=== PATIENT | female | born 1955 | race Caucasian/White ===

== ENCOUNTER 2021-01-19 17:20 | Inpatient (IN) | payer MEDICARE, OTHER, SELFPAY ==
[2021-01-19 17:59] VITALS: BMI 22.7
[2021-01-19 21:36] VITALS: BP 96/55; PULSE 80; RESP 17; TEMP 36.8; O2SAT 96
[2021-01-19] MEDS: hydrOXYzine HCL 25 MG TABLET PO (22:24)
[2021-01-19] MEDS: traZODone HCL 50 MG TABLET PO (22:24)
[2021-01-19] MEDS: Acetaminophen 325 MG TABLET 650 MG PO (22:50)
[2021-01-20 06:00] VITALS: BP 110/64; PULSE 64; TEMP 36.8; O2SAT 99
[2021-01-20] MEDS: lisinopriL 40 MG TABLET PO (09:43)
[2021-01-20] MEDS: Atorvastatin Calcium 10 MG TABLET PO (09:43)
[2021-01-20] MEDS: buPROPion HCl XL 150 MG TAB.ER.24H PO (09:43)
[2021-01-20] MEDS: amLODIPine Besylate 5 MG TABLET PO (09:44)
[2021-01-20] MEDS: Acetaminophen 325 MG TABLET 650 MG PO (14:05)
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
[2021-01-20] MEDS: LORazepam 0.5 MG TABLET PO ×2 (15:22→23:50)
--- NOTE | 2021-01-20 16:09 | HO.PM.IMCN ---
History of Present Illness Data of Consult Service Date: 01/20/21 Primary Care Provider: OWEN Allred HPI Routine at medical consult for new admit to [facility]. No acute medical issues at this time Review of Systems Review of Systems: Denies chest pain Denies shortness of breath Denies nausea vomiting diarrhea PMFSH Pertinent family history: . Social History Household Members: Spouse Housing: House Do you presently have visiting nurse or other home services: No Patient Tobacco Use Status: Current everyday Tobacco user Tobacco use type: Cigarette Cigarette Packs Per Day: 1 Cigarettes Per Day: 20.0 Smoked in Last 30 Days: Yes e-Cigarette/Vaping Use: Never Used Patient Interested in Nicotine Replacement: Yes Patient Given Instructions on How to Stop Smoking: Yes Date Education Initiated: 01/19/21 Second Hand Smoke Exposure: Yes Use of substances other than those prescribed or required for medical reasons: No Currently Displaying Signs/Symptoms of Drug Intoxication Withdrawal: No Any prior treatment program specific to substance use: No Do you feel safe in your current relationship?: Yes Is there a partner from a previous relationship who is making you feel unsafe now?: No Are you made to feel afraid or neglected: No Advance Directives: No Advance Directives Information Provided: No Do you have thoughts of harming others: None Do you have a plan to hurt others: No Plan Recently lost weight without trying: No Nutrition Risks: No Nutritional Risk Patient : No : No Poor oral hygiene: No service: No Sexual orientation: Lesbian/[place]/Homosexual Meds Allergies Allergy/AdvReac Type Severity Reaction Status Date / Time amoxicillin Allergy Unknown Verified 01/19/21 17:49 NSAIDS (Non-Steroidal Allergy Unknown Verified 01/19/21 17:49 Anti-Inflamma Penicillins Allergy Unknown Verified 01/19/21 17:49 Sulfa (Sulfonamide Allergy Unknown Verified 01/19/21 17:49 Antibiotics) tetracycline Allergy Unknown Verified 01/19/21 17:49 Tetracyclines Allergy Unknown Verified 01/19/21 17:49 Active Medications: Current Medications Acetaminophen (Acetaminophen 325 Mg Tablet) 650 mg PO Q6H PRN PRN Reason: Headache/Pain Mild Scale (1-3) Last Admin: 01/20/21 14:05 Dose: 650 mg Documented by: Al Hydroxide/Mg Hydroxide (Magnesium Hydrox/Alum Hydrox 30 Ml Oral.Susp) 30 ml PO Q6H PRN PRN Reason: Heartburn/Nausea Amlodipine Besylate (Amlodipine Besylate 5 Mg Tablet) 5 mg PO DAILY [facility]; Protocol Last Admin: 01/20/21 09:44 Dose: 5 mg Documented by: Artificial Tears (Artificial Tears 15 Ml Drops) 1 drop EYE-BOTH Q4H PRN PRN Reason: Dry Eyes Atorvastatin Calcium (Atorvastatin Calcium 10 Mg Tablet) 10 mg PO DAILY [facility] Last Admin: 01/20/21 09:43 Dose: 10 mg Documented by: Bupropion HCl (Bupropion Hcl Xl 150 Mg Tab.Er.24h) 150 mg PO DAILY [facility] Last Admin: 01/20/21 09:43 Dose: 150 mg Documented by: Docusate Sodium (Docusate Sodium 100 Mg Capsule) 100 mg PO BID [facility] Hydroxyzine HCl (Hydroxyzine Hcl 25 Mg Tablet) 25 mg PO BEDTIME PRN PRN Reason: Anxiety Last Admin: 01/19/21 22:24 Dose: 25 mg Documented by: Lisinopril (Lisinopril 40 Mg Tablet) 40 mg PO DAILY [facility]; Protocol Last Admin: 01/20/21 09:43 Dose: 40 mg Documented by: Lorazepam (Lorazepam 0.5 Mg Tablet) 0.5 mg PO Q8H PRN PRN Reason: Anxiety Last Admin: 01/20/21 15:22 Dose: 0.5 mg Documented by: Magnesium Hydroxide (Milk Of Magnesia 30 Ml Oral.Susp) 30 ml PO DAILY PRN PRN Reason: Constipation Nicotine (Nicotine 14 Mg Patch.Td24) 14 mg TRANSDERMA DAILY [facility] Last Admin: 01/20/21 09:58 Dose: Not Given Documented by: Nicotine Polacrilex (Nicotine Polacrilex 2 Mg Gum) 2 mg BUCCAL Q2H PRN PRN Reason: Nicotine Cravings Nortriptyline HCl (Nortriptyline Hcl 10 Mg Capsule) 10 mg PO BEDTIME [facility] Senna (Senna Kennedy Extract Oral Syrup 15 Ml Syrup) 15 ml PO BEDTIME [facility] Trazodone HCl (Trazodone Hcl 50 Mg Tablet) 50 mg PO BEDTIME PRN PRN Reason: Insomnia Last Admin: 01/19/21 22:24 Dose: 50 mg Documented by: Home Medications Medication Instructions Recorded Confirmed Last Taken Type amlodipine 5 mg tablet 5 mg PO DAILY 01/19/21 01/19/21 Unknown History atorvastatin 10 mg tablet 10 mg PO DAILY 01/19/21 01/19/21 Unknown History bupropion HCl 100 mg tablet,12 hr 100 mg PO BID 01/19/21 01/19/21 Unknown History sustained-release lisinopril 40 mg tablet 40 mg PO DAILY 01/19/21 01/19/21 Unknown History nicotine 14 mg/24 hr daily 1 patch TRANSDERMAL DAILY 01/19/21 01/19/21 Unknown History transdermal patch Physical Exam Vital Signs and Narrative: Vital Signs: Last Vital Signs Temp 98.2 F 01/20/21 06:00 Pulse 64 01/20/21 06:00 Resp 17 01/19/21 21:36 BP 110/64 01/20/21 06:00 Pulse Ox 99 01/20/21 06:00 Body Mass Index 22.7 Const: Other: Awake alert oriented x3 no acute distress HENMT: Other: Oral pharynx clear; mucous membranes moist Resp: Other: Clear to auscultation bilaterally no rales rhonchi or wheezes Cardio: Other: No S4; positive S1-S2; no S3 he is murmurs or gallops GI: Other: Soft nontender nondistended with normoactive bowel sounds. There is no appreciable hepatosplenomegaly Neuro: Other: Cranial nerves 2-12 were grossly intact as tested. Motor is 5/5 all extremities. Sensation intact. Cognition appropriate Extrem: Other: No edema bilaterally Assessment and Plan (1) Major depressive disorder: Status: Acute (2) Panic disorder with agoraphobia: Status: Acute Routine medical consult for 65 year old female admitted to [facility] with major depressive disorders. No acute medical issues at this time. Thank you for this consult please call if the need arises
[2021-01-20] MEDS: Docusate Sodium 100 MG CAPSULE PO (20:31)
[2021-01-20] MEDS: Nortriptyline HCl 10 MG CAPSULE PO (20:31)
[2021-01-20 23:52] VITALS: BP 100/50; PULSE 61; RESP 20; TEMP 36.3; O2SAT 98
[2021-01-21 06:00] VITALS: BP 100/56; PULSE 76; RESP 18; TEMP 36.2; O2SAT 100
--- NOTE | 2021-01-21 09:46 | P.PNPSI_ITS ---
Subjective Subjective Date of Service: 01/21/21 Reason For Visit: Adjustment disorder Subjective Notes: Conditional Voluntary Interim History: The nursing staff reports the patient has being tearful at times. Her vital signs are stable, last night she was slightly hypotensive but she was mostly asymptomatic. She complains of general somatic symptoms such as general numbness, now she and vomiting for with new meds. She has for p.r.n. Ativan at night and she slept overnight. The staff has reported that she is very attention seeking and drug-seeking with controlled substances. On interview, the patient denied side effects with Pamelor 10 mg p.o. q.h.s. we discussed options and she agreed on the plan below. Review of Systems Medical Review of Systems: unchanged Mental Status Exam Mental Status Exam Patient Appearance: Well Grooomed Patient Orientation: Person, Place and Situation Level of Consciousness: Awake Patient Behavior: Cooperative Mood Description: Depressed Affect Description: Constricted Patient Cognition Impaired: No Ability to Follow Directions: Fair Speech Pattern: Clear Hallucinations: None Delusions: Not Present Thought Process: Distracted and Linear Thought Content: positive for Circumstantial Judgement: Fair Diagnostics Vital Signs (24Hr): Vital Signs - 24 hr 01/20/21 23:52 01/21/21 06:00 Temperature 97.4 F 97.1 F Pulse Rate 61 76 Respiratory Rate 20 18 Blood Pressure 100/50 L 100/56 L Pulse Oximetry 98 100 Body Mass Index 22.7 Medications Medications Current Medications Acetaminophen (Acetaminophen 325 Mg Tablet) 650 mg PO Q6H PRN PRN Reason: Headache/Pain Mild Scale (1-3) Last Admin: 01/20/21 14:05 Dose: 650 mg Documented by: Al Hydroxide/Mg Hydroxide (Magnesium Hydrox/Alum Hydrox 30 Ml Oral.Susp) 30 ml PO Q6H PRN PRN Reason: Heartburn/Nausea Amlodipine Besylate (Amlodipine Besylate 5 Mg Tablet) 5 mg PO DAILY [facility]; Protocol Last Admin: 01/20/21 09:44 Dose: 5 mg Documented by: Artificial Tears (Artificial Tears 15 Ml Drops) 1 drop EYE-BOTH Q4H PRN PRN Reason: Dry Eyes Atorvastatin Calcium (Atorvastatin Calcium 10 Mg Tablet) 10 mg PO DAILY [facility] Last Admin: 01/20/21 09:43 Dose: 10 mg Documented by: Bupropion HCl (Bupropion Hcl Xl 150 Mg Tab.Er.24h) 150 mg PO DAILY [facility] Last Admin: 01/20/21 09:43 Dose: 150 mg Documented by: Docusate Sodium (Docusate Sodium 100 Mg Capsule) 100 mg PO BID [facility] Last Admin: 01/20/21 20:31 Dose: 100 mg Documented by: Hydroxyzine HCl (Hydroxyzine Hcl 25 Mg Tablet) 25 mg PO BEDTIME PRN PRN Reason: Anxiety Last Admin: 01/19/21 22:24 Dose: 25 mg Documented by: Lisinopril (Lisinopril 40 Mg Tablet) 40 mg PO DAILY [facility]; Protocol Last Admin: 01/20/21 09:43 Dose: 40 mg Documented by: Lorazepam (Lorazepam 0.5 Mg Tablet) 0.5 mg PO Q8H PRN PRN Reason: Anxiety Last Admin: 01/20/21 23:50 Dose: 0.5 mg Documented by: Magnesium Hydroxide (Milk Of Magnesia 30 Ml Oral.Susp) 30 ml PO DAILY PRN PRN Reason: Constipation Nicotine (Nicotine 14 Mg Patch.Td24) 14 mg TRANSDERMA DAILY [facility] Last Admin: 01/20/21 09:58 Dose: Not Given Documented by: Nicotine Polacrilex (Nicotine Polacrilex 2 Mg Gum) 2 mg BUCCAL Q2H PRN PRN Reason: Nicotine Cravings Nortriptyline HCl (Nortriptyline Hcl 10 Mg Capsule) 10 mg PO BEDTIME [facility] Last Admin: 01/20/21 20:31 Dose: 10 mg Documented by: Senna (Senna Gregory Extract Oral Syrup 15 Ml Syrup) 15 ml PO BEDTIME [facility] Last Admin: 01/20/21 20:31 Dose: 15 ml Documented by: Trazodone HCl (Trazodone Hcl 50 Mg Tablet) 50 mg PO BEDTIME PRN PRN Reason: Insomnia Last Admin: 01/19/21 22:24 Dose: 50 mg Documented by: Allergies Allergies Allergy/AdvReac Type Severity Reaction Status Date / Time amoxicillin Allergy Unknown Verified 01/19/21 17:49 NSAIDS (Non-Steroidal Allergy Unknown Verified 01/19/21 17:49 Anti-Inflamma Penicillins Allergy Unknown Verified 01/19/21 17:49 Sulfa (Sulfonamide Allergy Unknown Verified 01/19/21 17:49 Antibiotics) tetracycline Allergy Unknown Verified 01/19/21 17:49 Tetracyclines Allergy Unknown Verified 01/19/21 17:49 Assessment & Plan Assessment & Plan (1) Major depressive disorder: Status: Acute Code(s): F32.9 - Major depressive disorder, single episode, unspecified (2) Panic disorder with agoraphobia: Status: Acute Code(s): F40.01 - Agoraphobia with panic disorder Assessment and Plan: The patient is a 65-year-old female with a long history of depression, agoraphobia and several somatic symptoms with a prior admission into the hospital last year. She was admitted for exacerbation of depressive symptoms and agoraphobia, she has not left her apartment in several months. On admission we started the low-dose of Pamelor but she is extremely somatically preoccupied with side effects. Plan 1. Continue Wellbutrin and other medications. 2. Try again Pamelor this night. I spent minutes with the patient and/or on the patient floor today, greater than?50% of which was spent counseling/coordinating care. Reason for contiued inpatient stay Substantial Risk for: inability to function, rapid decompensation and med/psych decompensation
[2021-01-21] MEDS: LORazepam 0.5 MG TABLET PO ×2 (09:56→18:17)
[2021-01-21 09:57] VITALS: BP 100/56; PULSE 76
[2021-01-21] MEDS: Docusate Sodium 100 MG CAPSULE PO ×2 (09:57→20:35)
[2021-01-21] MEDS: lisinopriL 40 MG TABLET PO (09:57)
[2021-01-21] MEDS: buPROPion HCl XL 150 MG TAB.ER.24H PO (09:57)
[2021-01-21 09:58] VITALS: BP 100/56; PULSE 76
[2021-01-21] MEDS: Atorvastatin Calcium 10 MG TABLET PO (09:58)
[2021-01-21] MEDS: amLODIPine Besylate 5 MG TABLET PO (09:58)
[2021-01-21] MEDS: Acetaminophen 325 MG TABLET 650 MG PO (14:33)
[2021-01-21] MEDS: Magnesium Hydrox/Alum Hydrox 30 ML ORAL.SUSP PO ×2 (15:52→21:09)
[2021-01-21] MEDS: Nortriptyline HCl 10 MG CAPSULE PO (20:35)
[2021-01-21] MEDS: Artificial Tears 15 ML DROPS 1 DROP EYE-BOTH (20:36)
[2021-01-21 20:56] VITALS: BP 111/55; PULSE 67; RESP 16; TEMP 36.4; O2SAT 100
[2021-01-22] MEDS: Acetaminophen 325 MG TABLET 650 MG PO ×3 (00:19→22:10)
[2021-01-22] MEDS: LORazepam 0.5 MG TABLET PO ×4 (01:01→22:34)
[2021-01-22] MEDS: Artificial Tears 15 ML DROPS 1 DROP EYE-BOTH ×3 (01:16→12:20)
--- NOTE | 2021-01-22 07:32 | P.PNIM_ITS ---
Subjective Subjective Date of Service: 01/21/21 Interval History: Complains of worsening GERD over the last several days; she questions whether related to med therapy Review of Systems Denies chest pain Denies shortness of breath Admits to nausea and vomiting in the absence of diarrhea Physical Exam Vital Signs: Vital Signs: Last Vital Signs Temp 97.6 F 01/21/21 20:56 Pulse 67 01/21/21 20:56 Resp 16 01/21/21 20:56 BP 111/55 L 01/21/21 20:56 Pulse Ox 100 01/21/21 20:56 Body Mass Index 22.7 Const: Other: Awake alert oriented x3 no acute distress HENMT: Other: Oral pharynx clear; mucous membranes moist Resp: Other: Clear to auscultation bilaterally no rales rhonchi or wheezes Cardio: Other: No S4; positive S1-S2; no S3 he is murmurs or gallops GI: Other: Soft nontender nondistended with normoactive bowel sounds. There is no appreciable hepatosplenomegaly Neuro: Other: Cranial nerves 2-12 were grossly intact as tested. Motor is 5/5 all extremities. Sensation intact. Cognition appropriate Extrem: Other: No edema bilaterally Objective Data Active Medications Acetaminophen (Acetaminophen 325 Mg Tablet) 650 mg PO Q6H PRN PRN Reason: Headache/Pain Mild Scale (1-3) Last Admin: 01/22/21 00:19 Dose: 650 mg Documented by: ANJUM Al Hydroxide/Mg Hydroxide (Magnesium Hydrox/Alum Hydrox 30 Ml Oral.Susp) 30 ml PO Q6H PRN PRN Reason: Heartburn/Nausea Last Admin: 01/21/21 21:09 Dose: 30 ml Documented by: ANJUM Amlodipine Besylate (Amlodipine Besylate 5 Mg Tablet) 5 mg PO DAILY [facility]; Protocol Last Admin: 01/21/21 09:58 Dose: 5 mg Documented by: NIDIA Artificial Tears (Artificial Tears 15 Ml Drops) 1 drop EYE-BOTH Q4H PRN PRN Reason: Dry Eyes Last Admin: 01/22/21 01:16 EDT Dose: 1 drop Documented by: ANJUM Atorvastatin Calcium (Atorvastatin Calcium 10 Mg Tablet) 10 mg PO DAILY [facility] Last Admin: 01/21/21 09:58 Dose: 10 mg Documented by: NIDIA Bupropion HCl (Bupropion Hcl Xl 150 Mg Tab.Er.24h) 150 mg PO DAILY [facility] Last Admin: 01/21/21 09:57 Dose: 150 mg Documented by: NIDIA Docusate Sodium (Docusate Sodium 100 Mg Capsule) 100 mg PO BID [facility] Last Admin: 01/21/21 20:35 Dose: 100 mg Documented by: ANJUM Famotidine (Famotidine 20 Mg Tablet) 20 mg PO BEDTIME [facility] Hydroxyzine HCl (Hydroxyzine Hcl 25 Mg Tablet) 25 mg PO BEDTIME PRN PRN Reason: Anxiety Last Admin: 01/19/21 22:24 Dose: 25 mg Documented by: MERCEDES Lisinopril (Lisinopril 40 Mg Tablet) 40 mg PO DAILY [facility]; Protocol Last Admin: 01/21/21 09:57 Dose: 40 mg Documented by: NIDIA Lorazepam (Lorazepam 0.5 Mg Tablet) 0.5 mg PO Q8H PRN PRN Reason: Anxiety Last Admin: 01/22/21 01:01 EST Dose: 0.5 mg Documented by: ANJUM Magnesium Hydroxide (Milk Of Magnesia 30 Ml Oral.Susp) 30 ml PO DAILY PRN PRN Reason: Constipation Nicotine (Nicotine 14 Mg Patch.Td24) 14 mg TRANSDERMA DAILY [facility] Last Admin: 01/21/21 09:56 Dose: Not Given Documented by: NIDIA Non-Admin Reason: Patient Refused Nicotine Polacrilex (Nicotine Polacrilex 2 Mg Gum) 2 mg BUCCAL Q2H PRN PRN Reason: Nicotine Cravings Nortriptyline HCl (Nortriptyline Hcl 10 Mg Capsule) 10 mg PO BEDTIME [facility] Last Admin: 01/21/21 20:35 Dose: 10 mg Documented by: ANJUM Omeprazole (Omeprazole 20 Mg Capsule.Dr) 20 mg PO DAILY@0630 [facility] Senna (Senna [place] Extract Oral Syrup 15 Ml Syrup) 15 ml PO BEDTIME [facility] Last Admin: 01/21/21 20:35 Dose: 15 ml Documented by: ANJUM Trazodone HCl (Trazodone Hcl 50 Mg Tablet) 50 mg PO BEDTIME PRN PRN Reason: Insomnia Last Admin: 01/19/21 22:24 Dose: 50 mg Documented by: MERCEDES Assessment and Plan (1) GERD (gastroesophageal reflux disease): Status: Acute Assessment and Plan: 65-year-old female seen for complaints of worsening reflux over the last 48 hours 1GERD Will add PPI in a.m. and H2 RA at HS. Patient should continue these until symptom-free and then can follow with PPI in the morning only. Can follow-up with PCP upon discharge Quality Stroke Does the patient have a stroke diagnosis?: No VTE Prior VTE?: No VTE Risk Level:: Medical - low VTE Device Contraindication: N/A - Device Ordered VTE Drug Contraindication: Treatment Not Indicated
[2021-01-22 08:35] VITALS: BP 126/73; PULSE 66
[2021-01-22] MEDS: Atorvastatin Calcium 10 MG TABLET PO (08:35)
[2021-01-22] MEDS: amLODIPine Besylate 5 MG TABLET PO (08:35)
[2021-01-22] MEDS: Docusate Sodium 100 MG CAPSULE PO ×2 (08:35→21:06)
[2021-01-22] MEDS: Omeprazole 20 MG CAPSULE.DR PO (08:35)
[2021-01-22] MEDS: buPROPion HCl XL 150 MG TAB.ER.24H PO (08:35)
[2021-01-22 08:36] VITALS: BP 126/73; PULSE 66
[2021-01-22] MEDS: lisinopriL 40 MG TABLET PO (08:36)
[2021-01-22] MEDS: Nicotine 14 MG PATCH.TD24 TRANSDERMA (09:15)
[2021-01-22 09:43] VITALS: BP 126/73; PULSE 66; RESP 15; TEMP 36.5; O2SAT 100
--- NOTE | 2021-01-22 09:57 | HO.PSYCHPN ---
Subjective Subjective Date of Service: 01/22/21 Reason For Visit: Adjustment disorder Subjective Notes: Conditional Voluntary Interim History: The nursing staff reported that she preferred Senna tablets instead of syrup since the liquid caused heartburn. She complained of dry skin and mucosa. She stated that she is not a real psychiatric patient but mostly a patient with chronic pain. She was up several times at night. On interview, she reported dysphoria and pain. She explained that her sleep is bad, she can't fall sleep. Also, she complained of chronic pain that in the past was relieved partially with Gabapentin. She agreed on the plan below. NO safety concerns. Mental Status Exam Mental Status Exam Patient Appearance: Well Grooomed (on hospital gowns) Patient Orientation: Person, Place and Situation Level of Consciousness: Awake and Appropriate Patient Behavior: Cooperative and Passive Mood Description: Withdrawn and Depressed Affect Description: Constricted Patient Cognition Impaired: No Ability to Follow Directions: Good Speech Pattern: Clear Hallucinations: None Delusions: Not Present Thought Process: Linear Thought Content: positive for [place], positive for Perseveration, positive for Poverty of Content and positive for Preoccupation Judgement: Fair Diagnostics Vital Signs (24Hr): Vital Signs - 24 hr 01/21/21 20:56 01/22/21 08:35 01/22/21 08:36 Temperature 97.6 F Pulse Rate 67 66 66 Respiratory Rate 16 Blood Pressure 111/55 L 126/73 126/73 Pulse Oximetry 100 01/22/21 09:43 Temperature 97.7 F Pulse Rate 66 Respiratory Rate 15 Blood Pressure 126/73 Pulse Oximetry 100 Body Mass Index 22.7 Medications Medications Current Medications Acetaminophen (Acetaminophen 325 Mg Tablet) 650 mg PO Q6H PRN PRN Reason: Headache/Pain Mild Scale (1-3) Last Admin: 01/22/21 09:20 Dose: 650 mg Documented by: Al Hydroxide/Mg Hydroxide (Magnesium Hydrox/Alum Hydrox 30 Ml Oral.Susp) 30 ml PO Q6H PRN PRN Reason: Heartburn/Nausea Last Admin: 01/21/21 21:09 Dose: 30 ml Documented by: Amlodipine Besylate (Amlodipine Besylate 5 Mg Tablet) 5 mg PO DAILY [facility]; Protocol Last Admin: 01/22/21 08:35 Dose: 5 mg Documented by: Artificial Tears (Artificial Tears 15 Ml Drops) 1 drop EYE-BOTH Q4H PRN PRN Reason: Dry Eyes Last Admin: 01/22/21 08:35 Dose: 1 drop Documented by: Atorvastatin Calcium (Atorvastatin Calcium 10 Mg Tablet) 10 mg PO DAILY [facility] Last Admin: 01/22/21 08:35 Dose: 10 mg Documented by: Bupropion HCl (Bupropion Hcl Xl 150 Mg Tab.Er.24h) 150 mg PO DAILY [facility] Last Admin: 01/22/21 08:35 Dose: 150 mg Documented by: Docusate Sodium (Docusate Sodium 100 Mg Capsule) 100 mg PO BID [facility] Last Admin: 01/22/21 08:35 Dose: 100 mg Documented by: Famotidine (Famotidine 20 Mg Tablet) 20 mg PO BEDTIME [facility] Hydroxyzine HCl (Hydroxyzine Hcl 25 Mg Tablet) 25 mg PO BEDTIME PRN PRN Reason: Anxiety Last Admin: 01/19/21 22:24 Dose: 25 mg Documented by: Lisinopril (Lisinopril 40 Mg Tablet) 40 mg PO DAILY [facility]; Protocol Last Admin: 01/22/21 08:36 Dose: 40 mg Documented by: Lorazepam (Lorazepam 0.5 Mg Tablet) 0.5 mg PO Q8H PRN PRN Reason: Anxiety Last Admin: 01/22/21 09:20 Dose: 0.5 mg Documented by: Magnesium Hydroxide (Milk Of Magnesia 30 Ml Oral.Susp) 30 ml PO DAILY PRN PRN Reason: Constipation Nicotine (Nicotine 14 Mg Patch.Td24) 14 mg TRANSDERMA DAILY [facility] Last Admin: 01/22/21 09:15 Dose: 14 mg Documented by: Nicotine Polacrilex (Nicotine Polacrilex 2 Mg Gum) 2 mg BUCCAL Q2H PRN PRN Reason: Nicotine Cravings Nortriptyline HCl (Nortriptyline Hcl 10 Mg Capsule) 10 mg PO BEDTIME [facility] Last Admin: 01/21/21 20:35 Dose: 10 mg Documented by: Omeprazole (Omeprazole 20 Mg Capsule.Dr) 20 mg PO DAILY@0630 [facility] Last Admin: 01/22/21 08:35 Dose: 20 mg Documented by: Senna (Senna [place] Extract Oral Syrup 15 Ml Syrup) 15 ml PO BEDTIME [facility] Last Admin: 01/21/21 20:35 Dose: 15 ml Documented by: Trazodone HCl (Trazodone Hcl 50 Mg Tablet) 50 mg PO BEDTIME PRN PRN Reason: Insomnia Last Admin: 01/19/21 22:24 Dose: 50 mg Documented by: Allergies Allergies Allergy/AdvReac Type Severity Reaction Status Date / Time amoxicillin Allergy Unknown Verified 01/19/21 17:49 NSAIDS (Non-Steroidal Allergy Unknown Verified 01/19/21 17:49 Anti-Inflamma Penicillins Allergy Unknown Verified 01/19/21 17:49 Sulfa (Sulfonamide Allergy Unknown Verified 01/19/21 17:49 Antibiotics) tetracycline Allergy Unknown Verified 01/19/21 17:49 Tetracyclines Allergy Unknown Verified 01/19/21 17:49 Assessment & Plan Assessment & Plan (1) GERD (gastroesophageal reflux disease): Status: Acute Code(s): K21.9 - Gastro-esophageal reflux disease without esophagitis Assessment and Plan: 65-year-old female admitted for dysphoria and several somatic complaints, admitted for exacerbation of dysphoria. Plan: 1. Keep Pamelor 10 mg po qhs. 2. Add Gabapentin 100 mg po bid. 3. Add Ambien 5 mg po qhs.. 4. Gather collateral information. I spent minutes with the patient and/or on the patient floor today, greater than?50% of which was spent counseling/coordinating care. Reason for contiued inpatient stay Substantial Risk for: inability to function, rapid decompensation and med/psych decompensation
[2021-01-22 21:05] VITALS: BP 141/67; PULSE 74; RESP 18; TEMP 36; O2SAT 99
[2021-01-22] MEDS: Nortriptyline HCl 10 MG CAPSULE PO (21:07)
[2021-01-22] MEDS: Famotidine 20 MG TABLET PO (21:07)
[2021-01-22] MEDS: Zolpidem Tartrate 5 MG TABLET PO (21:07)
[2021-01-23] MEDS: traZODone HCL 50 MG TABLET PO ×2 (00:14→03:47)
[2021-01-23] MEDS: Nicotine 14 MG PATCH.TD24 TRANSDERMA (08:44)
[2021-01-23 08:45] VITALS: BP 117/61; PULSE 78
[2021-01-23] MEDS: Atorvastatin Calcium 10 MG TABLET PO (08:45)
[2021-01-23] MEDS: Docusate Sodium 100 MG CAPSULE PO ×2 (08:45→21:04)
[2021-01-23] MEDS: buPROPion HCl XL 150 MG TAB.ER.24H PO (08:45)
[2021-01-23] MEDS: Omeprazole 20 MG CAPSULE.DR PO (08:45)
[2021-01-23] MEDS: lisinopriL 40 MG TABLET PO (08:45)
[2021-01-23 08:46] VITALS: BP 117/61; PULSE 78
[2021-01-23] MEDS: Gabapentin 100 MG CAPSULE PO ×2 (08:46→15:15)
[2021-01-23] MEDS: amLODIPine Besylate 5 MG TABLET PO (08:46)
[2021-01-23 08:59] VITALS: BP 117/61; PULSE 78; TEMP 35.7; O2SAT 100
[2021-01-23] MEDS: LORazepam 0.5 MG TABLET PO ×2 (10:37→19:36)
[2021-01-23] MEDS: Artificial Tears 15 ML DROPS 1 DROP EYE-BOTH (11:08)
[2021-01-23] MEDS: Acetaminophen 325 MG TABLET 650 MG PO ×2 (12:21→19:36)
--- NOTE | 2021-01-23 16:07 | HO.PSYCHPN ---
Subjective Subjective Date of Service: 01/23/21 Reason For Visit: Adjustment disorder Subjective Notes: Conditional Voluntary Interim History: The nursing staff reported that the patient: Sleep very well, even though the we have tried Ambien, trazodone and other medications. On interview, the patient reported that she is feeling this anxious but still very dysphoric with chronic pain and anxiety. She agreed increase Pamelor up to 20 mg p.o. q.h.s. to target insomnia, dysphoria and chronic pain Mental Status Exam Mental Status Exam Patient Appearance: Well Grooomed Patient Orientation: Person Level of Consciousness: Awake and Appropriate Patient Behavior: Cooperative Mood Description: Depressed Affect Description: Constricted Patient Cognition Impaired: No Ability to Follow Directions: Good Speech Pattern: Clear Hallucinations: None Delusions: Not Present Thought Process: Goal Oriented Thought Content: positive for Circumstantial Judgement: Fair Diagnostics Vital Signs (24Hr): Vital Signs - 24 hr 01/22/21 21:05 01/23/21 08:45 01/23/21 08:46 Temperature 96.8 F Pulse Rate 74 78 78 Respiratory Rate 18 Blood Pressure 141/67 H 117/61 117/61 Pulse Oximetry 99 01/23/21 08:59 Temperature 96.2 F L Pulse Rate 78 Respiratory Rate Blood Pressure 117/61 Pulse Oximetry 100 Body Mass Index 22.7 Medications Medications Current Medications Acetaminophen (Acetaminophen 325 Mg Tablet) 650 mg PO Q6H PRN PRN Reason: Headache/Pain Mild Scale (1-3) Last Admin: 01/23/21 12:21 Dose: 650 mg Documented by: Al Hydroxide/Mg Hydroxide (Magnesium Hydrox/Alum Hydrox 30 Ml Oral.Susp) 30 ml PO Q6H PRN PRN Reason: Heartburn/Nausea Last Admin: 01/21/21 21:09 Dose: 30 ml Documented by: Amlodipine Besylate (Amlodipine Besylate 5 Mg Tablet) 5 mg PO DAILY [facility]; Protocol Last Admin: 01/23/21 08:46 Dose: 5 mg Documented by: Artificial Tears (Artificial Tears 15 Ml Drops) 1 drop EYE-BOTH Q4H PRN PRN Reason: Dry Eyes Last Admin: 01/23/21 11:08 Dose: 1 drop Documented by: Atorvastatin Calcium (Atorvastatin Calcium 10 Mg Tablet) 10 mg PO DAILY [facility] Last Admin: 01/23/21 08:45 Dose: 10 mg Documented by: Bupropion HCl (Bupropion Hcl Xl 150 Mg Tab.Er.24h) 150 mg PO DAILY [facility] Last Admin: 01/23/21 08:45 Dose: 150 mg Documented by: Docusate Sodium (Docusate Sodium 100 Mg Capsule) 100 mg PO BID [facility] Last Admin: 01/23/21 08:45 Dose: 100 mg Documented by: Famotidine (Famotidine 20 Mg Tablet) 20 mg PO BEDTIME [facility] Last Admin: 01/22/21 21:07 Dose: 20 mg Documented by: Gabapentin (Gabapentin 100 Mg Capsule) 100 mg PO BID@0800,1500 [facility] Last Admin: 01/23/21 15:15 Dose: 100 mg Documented by: Hydroxyzine HCl (Hydroxyzine Hcl 25 Mg Tablet) 25 mg PO BEDTIME PRN PRN Reason: Anxiety Last Admin: 01/19/21 22:24 Dose: 25 mg Documented by: Lisinopril (Lisinopril 40 Mg Tablet) 40 mg PO DAILY [facility]; Protocol Last Admin: 01/23/21 08:45 Dose: 40 mg Documented by: Lorazepam (Lorazepam 0.5 Mg Tablet) 0.5 mg PO Q8H PRN PRN Reason: Anxiety Last Admin: 01/23/21 10:37 Dose: 0.5 mg Documented by: Magnesium Hydroxide (Milk Of Magnesia 30 Ml Oral.Susp) 30 ml PO DAILY PRN PRN Reason: Constipation Nicotine (Nicotine 14 Mg Patch.Td24) 14 mg TRANSDERMA DAILY [facility] Last Admin: 01/23/21 08:44 Dose: 14 mg Documented by: Nicotine Polacrilex (Nicotine Polacrilex 2 Mg Gum) 2 mg BUCCAL Q2H PRN PRN Reason: Nicotine Cravings Nortriptyline HCl (Nortriptyline Hcl 10 Mg Capsule) 10 mg PO BEDTIME [facility] Last Admin: 01/22/21 21:07 Dose: 10 mg Documented by: Omeprazole (Omeprazole 20 Mg Capsule.Dr) 20 mg PO DAILY@0630 [facility] Last Admin: 01/23/21 08:45 Dose: 20 mg Documented by: Senna (Senna [place] Extract Oral Syrup 15 Ml Syrup) 15 ml PO BEDTIME [facility] Last Admin: 01/22/21 21:07 Dose: Not Given Documented by: Trazodone HCl (Trazodone Hcl 50 Mg Tablet) 50 mg PO BEDTIME PRN PRN Reason: Insomnia Last Admin: 01/23/21 03:47 Dose: 50 mg Documented by: Zolpidem Tartrate (Zolpidem Tartrate 5 Mg Tablet) 5 mg PO BEDTIME [facility] Last Admin: 01/22/21 21:07 Dose: 5 mg Documented by: Allergies Allergies Allergy/AdvReac Type Severity Reaction Status Date / Time amoxicillin Allergy Unknown Verified 01/19/21 17:49 NSAIDS (Non-Steroidal Allergy Unknown Verified 01/19/21 17:49 Anti-Inflamma Penicillins Allergy Unknown Verified 01/19/21 17:49 Sulfa (Sulfonamide Allergy Unknown Verified 01/19/21 17:49 Antibiotics) tetracycline Allergy Unknown Verified 01/19/21 17:49 Tetracyclines Allergy Unknown Verified 01/19/21 17:49 Assessment & Plan Assessment & Plan (1) GERD (gastroesophageal reflux disease): Status: Acute Code(s): K21.9 - Gastro-esophageal reflux disease without esophagitis Assessment and Plan: 65-year-old female admitted for dysphoria and several somatic complaints, admitted for exacerbation of dysphoria. Plan: 1. Increase Pamelor up to 20 mg po qhs. 2. Add Gabapentin 100 mg po bid. 3. Add Ambien 5 mg po qhs.. 4. Gather collateral information. I spent minutes with the patient and/or on the patient floor today, greater than?50% of which was spent counseling/coordinating care. Reason for contiued inpatient stay Substantial Risk for: inability to function, rapid decompensation and med/psych decompensation
[2021-01-23 21:00] VITALS: BP 103/56; PULSE 66; RESP 18; TEMP 36.2; O2SAT 100
[2021-01-23] MEDS: Zolpidem Tartrate 5 MG TABLET PO (21:04)
[2021-01-23] MEDS: Nortriptyline HCl 10 MG CAPSULE 20 MG PO (21:05)
[2021-01-23] MEDS: Magnesium Hydrox/Alum Hydrox 30 ML ORAL.SUSP PO (21:07)
[2021-01-24] MEDS: LORazepam 0.5 MG TABLET PO ×3 (03:53→18:35)
[2021-01-24 08:00] VITALS: BP 128/61; PULSE 74; TEMP 36.1; O2SAT 100
[2021-01-24] MEDS: Gabapentin 100 MG CAPSULE PO ×2 (08:16→15:38)
[2021-01-24] MEDS: buPROPion HCl XL 150 MG TAB.ER.24H PO (08:17)
[2021-01-24] MEDS: Docusate Sodium 100 MG CAPSULE PO ×2 (08:17→20:18)
[2021-01-24] MEDS: Atorvastatin Calcium 10 MG TABLET PO (08:17)
[2021-01-24 08:20] VITALS: BP 128/61; PULSE 73
[2021-01-24] MEDS: lisinopriL 40 MG TABLET PO (08:20)
[2021-01-24 08:21] VITALS: BP 128/61; PULSE 73
[2021-01-24] MEDS: amLODIPine Besylate 5 MG TABLET PO (08:21)
[2021-01-24] MEDS: Artificial Tears 15 ML DROPS 1 DROP EYE-BOTH (08:22)
[2021-01-24] MEDS: Nicotine 14 MG PATCH.TD24 TRANSDERMA (10:19)
[2021-01-24] MEDS: Acetaminophen 325 MG TABLET 650 MG PO ×2 (10:23→18:36)
--- NOTE | 2021-01-24 17:13 | P.PNPSI_ITS ---
Subjective Subjective Date of Service: 01/24/21 Reason For Visit: Adjustment disorder Subjective Notes: Conditional Voluntary Interim History: The nursing staff reported the patient slept well last night with the combination of Pamelor, Ambien now or others. On interview, the patient was tearful and felt very depressed but she was able to contract for safety Medication Compliance: Yes Mental Status Exam Mental Status Exam Patient Appearance: Well Grooomed Patient Orientation: Person Level of Consciousness: Awake Patient Behavior: Guarded, Cooperative and Passive Mood Description: Depressed Affect Description: Constricted and Sad Patient Cognition Impaired: No Ability to Follow Directions: Good Speech Pattern: Appropriate Hallucinations: None Delusions: Not Present Thought Process: Distracted and Slowed Thinking Thought Content: positive for Circumstantial Judgement: Fair Diagnostics Vital Signs (24Hr): Vital Signs - 24 hr 01/23/21 21:00 01/24/21 08:00 01/24/21 08:20 Temperature 97.1 F 96.9 F Pulse Rate 66 74 73 Respiratory Rate 18 Blood Pressure 103/56 L 128/61 128/61 Pulse Oximetry 100 100 01/24/21 08:21 Temperature Pulse Rate 73 Respiratory Rate Blood Pressure 128/61 Pulse Oximetry Body Mass Index 22.7 Medications Medications Current Medications Acetaminophen (Acetaminophen 325 Mg Tablet) 650 mg PO Q6H PRN PRN Reason: Headache/Pain Mild Scale (1-3) Last Admin: 01/24/21 10:23 Dose: 650 mg Documented by: Al Hydroxide/Mg Hydroxide (Magnesium Hydrox/Alum Hydrox 30 Ml Oral.Susp) 30 ml PO Q6H PRN PRN Reason: Heartburn/Nausea Last Admin: 01/23/21 21:07 Dose: 30 ml Documented by: Amlodipine Besylate (Amlodipine Besylate 5 Mg Tablet) 5 mg PO DAILY [facility]; Protocol Last Admin: 01/24/21 08:21 Dose: 5 mg Documented by: Artificial Tears (Artificial Tears 15 Ml Drops) 1 drop EYE-BOTH Q4H PRN PRN Reason: Dry Eyes Last Admin: 01/24/21 08:22 Dose: 1 drop Documented by: Atorvastatin Calcium (Atorvastatin Calcium 10 Mg Tablet) 10 mg PO DAILY [facility] Last Admin: 01/24/21 08:17 Dose: 10 mg Documented by: Bupropion HCl (Bupropion Hcl Xl 150 Mg Tab.Er.24h) 150 mg PO DAILY [facility] Last Admin: 01/24/21 08:17 Dose: 150 mg Documented by: Docusate Sodium (Docusate Sodium 100 Mg Capsule) 100 mg PO BID [facility] Last Admin: 01/24/21 08:17 Dose: 100 mg Documented by: Famotidine (Famotidine 20 Mg Tablet) 20 mg PO BEDTIME [facility] Last Admin: 01/23/21 21:13 Dose: Not Given Documented by: Gabapentin (Gabapentin 100 Mg Capsule) 100 mg PO BID@0800,1500 [facility] Last Admin: 01/24/21 15:38 Dose: 100 mg Documented by: Hydroxyzine HCl (Hydroxyzine Hcl 25 Mg Tablet) 25 mg PO BEDTIME PRN PRN Reason: Anxiety Last Admin: 01/19/21 22:24 Dose: 25 mg Documented by: Lisinopril (Lisinopril 40 Mg Tablet) 40 mg PO DAILY [facility]; Protocol Last Admin: 01/24/21 08:20 Dose: 40 mg Documented by: Lorazepam (Lorazepam 0.5 Mg Tablet) 0.5 mg PO Q8H PRN PRN Reason: Anxiety Last Admin: 01/24/21 10:24 Dose: 0.5 mg Documented by: Magnesium Hydroxide (Milk Of Magnesia 30 Ml Oral.Susp) 30 ml PO DAILY PRN PRN Reason: Constipation Nicotine (Nicotine 14 Mg Patch.Td24) 14 mg TRANSDERMA DAILY [facility] Last Admin: 01/24/21 10:19 Dose: 14 mg Documented by: Nicotine Polacrilex (Nicotine Polacrilex 2 Mg Gum) 2 mg BUCCAL Q2H PRN PRN Reason: Nicotine Cravings Nortriptyline HCl (Nortriptyline Hcl 10 Mg Capsule) 20 mg PO BEDTIME [facility] Last Admin: 01/23/21 21:05 Dose: 20 mg Documented by: Nystatin (Nystatin Powder 15 Gm Bottle) 1 appl TOPICAL BID [facility]; Protocol Omeprazole (Omeprazole 20 Mg Capsule.Dr) 20 mg PO DAILY@0630 [facility] Last Admin: 01/24/21 08:21 Dose: Not Given Documented by: Senna (Senna [place] Extract Oral Syrup 15 Ml Syrup) 15 ml PO BEDTIME [facility] Last Admin: 01/23/21 21:07 Dose: 15 ml Documented by: Trazodone HCl (Trazodone Hcl 50 Mg Tablet) 50 mg PO BEDTIME PRN PRN Reason: Insomnia Last Admin: 01/23/21 03:47 Dose: 50 mg Documented by: Zolpidem Tartrate (Zolpidem Tartrate 5 Mg Tablet) 5 mg PO BEDTIME [facility] Last Admin: 01/23/21 21:04 Dose: 5 mg Documented by: Allergies Allergies Allergy/AdvReac Type Severity Reaction Status Date / Time amoxicillin Allergy Unknown Verified 01/19/21 17:49 NSAIDS (Non-Steroidal Allergy Unknown Verified 01/19/21 17:49 Anti-Inflamma Penicillins Allergy Unknown Verified 01/19/21 17:49 Sulfa (Sulfonamide Allergy Unknown Verified 01/19/21 17:49 Antibiotics) tetracycline Allergy Unknown Verified 01/19/21 17:49 Tetracyclines Allergy Unknown Verified 01/19/21 17:49 Assessment & Plan Assessment & Plan (1) GERD (gastroesophageal reflux disease): Status: Acute Code(s): K21.9 - Gastro-esophageal reflux disease without esophagitis Assessment and Plan: 65-year-old female admitted for dysphoria and several somatic complaints, admitted for exacerbation of dysphoria. Plan: 1. Increase Pamelor up to 20 mg po qhs. 2. Add Gabapentin 100 mg po bid. 3. Add Ambien 5 mg po qhs.. 4. Gather collateral information. I spent minutes with the patient and/or on the patient floor today, greater than?50% of which was spent counseling/coordinating care. Reason for contiued inpatient stay Substantial Risk for: inability to function, rapid decompensation and med/psych decompensation
[2021-01-24] MEDS: Nortriptyline HCl 10 MG CAPSULE 20 MG PO (20:19)
[2021-01-24] MEDS: Zolpidem Tartrate 5 MG TABLET PO (20:19)
[2021-01-24] MEDS: Nystatin Powder 15 GM BOTTLE 1 APPL TOPICAL (20:19)
[2021-01-24 21:39] VITALS: BP 90/40; PULSE 66; RESP 17; TEMP 36.1; O2SAT 96
[2021-01-25] MEDS: traZODone HCL 50 MG TABLET PO (01:41)
[2021-01-25] MEDS: Omeprazole 20 MG CAPSULE.DR PO (06:38)
[2021-01-25] MEDS: Atorvastatin Calcium 10 MG TABLET PO (08:34)
[2021-01-25] MEDS: buPROPion HCl XL 150 MG TAB.ER.24H PO (08:34)
[2021-01-25] MEDS: Docusate Sodium 100 MG CAPSULE PO ×2 (08:34→21:18)
[2021-01-25] MEDS: lisinopriL 40 MG TABLET PO (08:34)
[2021-01-25] MEDS: Acetaminophen 325 MG TABLET 650 MG PO (08:34)
[2021-01-25] MEDS: Nicotine 14 MG PATCH.TD24 TRANSDERMA ×2 (08:35→11:42)
[2021-01-25] MEDS: Gabapentin 100 MG CAPSULE PO ×2 (08:35→16:51)
[2021-01-25] MEDS: Nystatin Powder 15 GM BOTTLE 1 APPL TOPICAL ×2 (08:35→21:19)
[2021-01-25] MEDS: amLODIPine Besylate 5 MG TABLET PO (08:35)
[2021-01-25 10:21] VITALS: BP 92/55; PULSE 80; TEMP 36.3; O2SAT 100
[2021-01-25] MEDS: Artificial Tears 15 ML DROPS 1 DROP EYE-BOTH (11:50)
--- NOTE | 2021-01-25 15:01 | HO.PSYCHPN ---
Subjective Subjective Date of Service: 01/25/21 Reason For Visit: Adjustment disorder Subjective Notes: Conditional Voluntary Interim History: The nursing staff reported that she has been asking for Ambien every day, she complains of anxiety and depression. 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 Yesterday the mental health social worker tried to talk about her about discharge and she became very dysphoric but later she was pleasantly lying on her bed reading. On interview, it was care for the patient she likes to be here even though that she participates minimally in groups. We explained her that this is a short-term hospital none we need to start thinking on discharge planning. She agreed increase Pamelor up to 25 mg p.o. q.h.s. Mental Status Exam Mental Status Exam Patient Appearance: Well Grooomed Patient Orientation: Person and Situation Level of Consciousness: Appropriate Patient Behavior: Guarded and Passive Mood Description: Depressed Affect Description: Constricted Patient Cognition Impaired: No Ability to Follow Directions: Good Speech Pattern: Appropriate Hallucinations: None Delusions: Not Present Thought Process: Linear Thought Content: positive for Circumstantial Depressive Symptoms: Increased Anxiety Judgement: Fair Diagnostics Vital Signs (24Hr): Vital Signs - 24 hr 01/24/21 21:39 01/25/21 10:21 Temperature 96.9 F 97.3 F Pulse Rate 66 80 Respiratory Rate 17 Blood Pressure 90/40 L 92/55 L Pulse Oximetry 96 100 Body Mass Index 22.7 Medications Medications Current Medications Acetaminophen (Acetaminophen 325 Mg Tablet) 650 mg PO Q6H PRN PRN Reason: Headache/Pain Mild Scale (1-3) Last Admin: 01/25/21 08:34 Dose: 650 mg Documented by: Al Hydroxide/Mg Hydroxide (Magnesium Hydrox/Alum Hydrox 30 Ml Oral.Susp) 30 ml PO Q6H PRN PRN Reason: Heartburn/Nausea Last Admin: 01/23/21 21:07 Dose: 30 ml Documented by: Amlodipine Besylate (Amlodipine Besylate 5 Mg Tablet) 5 mg PO DAILY [facility]; Protocol Last Admin: 01/25/21 08:35 Dose: 5 mg Documented by: Artificial Tears (Artificial Tears 15 Ml Drops) 1 drop EYE-BOTH Q4H PRN PRN Reason: Dry Eyes Last Admin: 01/25/21 11:50 Dose: 1 drop Documented by: Atorvastatin Calcium (Atorvastatin Calcium 10 Mg Tablet) 10 mg PO DAILY [facility] Last Admin: 01/25/21 08:34 Dose: 10 mg Documented by: Bupropion HCl (Bupropion Hcl Xl 150 Mg Tab.Er.24h) 150 mg PO DAILY [facility] Last Admin: 01/25/21 08:34 Dose: 150 mg Documented by: Docusate Sodium (Docusate Sodium 100 Mg Capsule) 100 mg PO BID [facility] Last Admin: 01/25/21 08:34 Dose: 100 mg Documented by: Famotidine (Famotidine 20 Mg Tablet) 20 mg PO BEDTIME [facility] Last Admin: 01/24/21 20:32 Dose: Not Given Documented by: Gabapentin (Gabapentin 100 Mg Capsule) 100 mg PO BID@0800,1500 [facility] Last Admin: 01/25/21 08:35 Dose: 100 mg Documented by: Hydroxyzine HCl (Hydroxyzine Hcl 25 Mg Tablet) 25 mg PO BEDTIME PRN PRN Reason: Anxiety Last Admin: 01/19/21 22:24 Dose: 25 mg Documented by: Lisinopril (Lisinopril 40 Mg Tablet) 40 mg PO DAILY [facility]; Protocol Last Admin: 01/25/21 08:34 Dose: 40 mg Documented by: Magnesium Hydroxide (Milk Of Magnesia 30 Ml Oral.Susp) 30 ml PO DAILY PRN PRN Reason: Constipation Nicotine (Nicotine 14 Mg Patch.Td24) 14 mg TRANSDERMA DAILY [facility] Last Admin: 01/25/21 11:42 Dose: 14 mg Documented by: Nicotine Polacrilex (Nicotine Polacrilex 2 Mg Gum) 2 mg BUCCAL Q2H PRN PRN Reason: Nicotine Cravings Nortriptyline HCl (Nortriptyline Hcl 10 Mg Capsule) 20 mg PO BEDTIME [facility] Last Admin: 01/24/21 20:19 Dose: 20 mg Documented by: Nystatin (Nystatin Powder 15 Gm Bottle) 1 appl TOPICAL BID [facility]; Protocol Last Admin: 01/25/21 08:35 Dose: 1 appl Documented by: Omeprazole (Omeprazole 20 Mg Capsule.) 20 mg PO DAILY@0630 [facility] Last Admin: 01/25/21 06:38 Dose: 20 mg Documented by: Senna (Senna [place] Extract Oral Syrup 15 Ml Syrup) 15 ml PO BEDTIME [facility] Last Admin: 01/24/21 20:20 Dose: 15 ml Documented by: Trazodone HCl (Trazodone Hcl 50 Mg Tablet) 50 mg PO BEDTIME PRN PRN Reason: Insomnia Last Admin: 01/25/21 01:41 Dose: 50 mg Documented by: Zolpidem Tartrate (Zolpidem Tartrate 5 Mg Tablet) 5 mg PO BEDTIME [facility] Last Admin: 01/24/21 20:19 Dose: 5 mg Documented by: Allergies Allergies Allergy/AdvReac Type Severity Reaction Status Date / Time amoxicillin Allergy Unknown Verified 01/19/21 17:49 NSAIDS (Non-Steroidal Allergy Unknown Verified 01/19/21 17:49 Anti-Inflamma Penicillins Allergy Unknown Verified 01/19/21 17:49 Sulfa (Sulfonamide Allergy Unknown Verified 01/19/21 17:49 Antibiotics) tetracycline Allergy Unknown Verified 01/19/21 17:49 Tetracyclines Allergy Unknown Verified 01/19/21 17:49 Assessment & Plan Assessment & Plan (1) GERD (gastroesophageal reflux disease): Status: Acute Code(s): K21.9 - Gastro-esophageal reflux disease without esophagitis Assessment and Plan: 65-year-old female admitted for dysphoria and several somatic complaints, admitted for exacerbation of dysphoria. Plan: 1. Increase Pamelor up to 25 mg po qhs. 2. Add Gabapentin 100 mg po bid. 3. Add Ambien 5 mg po qhs.. 4. Gather collateral information. I spent minutes with the patient and/or on the patient floor today, greater than?50% of which was spent counseling/coordinating care. Reason for contiued inpatient stay Substantial Risk for: inability to function, rapid decompensation and med/psych decompensation
[2021-01-25] MEDS: LORazepam 0.5 MG TABLET PO (16:51)
[2021-01-25 20:00] VITALS: BP 87/48; PULSE 76; RESP 18; TEMP 36.5; O2SAT 98
[2021-01-25] MEDS: Famotidine 20 MG TABLET PO (21:17)
[2021-01-25] MEDS: Zolpidem Tartrate 5 MG TABLET PO (21:17)
[2021-01-25] MEDS: Nortriptyline HCl 25 MG CAPSULE PO (21:18)
[2021-01-25 22:15] VITALS: BP 119/60; BP 86/51; BP 96/54; PULSE 78; PULSE 79; PULSE 80
[2021-01-26] MEDS: LORazepam 0.5 MG TABLET PO ×3 (02:39→23:53)
[2021-01-26 07:00] VITALS: BMI 21.7
[2021-01-26] MEDS: Gabapentin 100 MG CAPSULE PO ×2 (08:59→14:09)
[2021-01-26] MEDS: Nicotine 14 MG PATCH.TD24 TRANSDERMA (08:59)
[2021-01-26] MEDS: buPROPion HCl XL 150 MG TAB.ER.24H PO (09:00)
[2021-01-26] MEDS: Omeprazole 20 MG CAPSULE.DR PO (09:01)
[2021-01-26] MEDS: Docusate Sodium 100 MG CAPSULE PO ×2 (09:01→20:10)
[2021-01-26] MEDS: Atorvastatin Calcium 10 MG TABLET PO (09:01)
[2021-01-26 09:07] VITALS: BP 114/58; PULSE 81; TEMP 35.8; O2SAT 100
[2021-01-26 09:19] VITALS: BP 114/58; PULSE 81
[2021-01-26] MEDS: Artificial Tears 15 ML DROPS 1 DROP EYE-BOTH ×2 (09:56→20:10)
[2021-01-26] MEDS: Nystatin Powder 15 GM BOTTLE 1 APPL TOPICAL ×2 (09:56→20:10)
--- NOTE | 2021-01-26 13:32 | HO.PSYCHPN ---
Subjective Subjective Date of Service: 01/26/21 Reason For Visit: Adjustment disorder Subjective Notes: Conditional Voluntary Interim History: The nursing staff has reported that she had been hypotensive and they have been doing orthostatic evaluations. On interview, the patient denies new symptoms she reports that she is tired and she feels that she has not improved much. Mental Status Exam Mental Status Exam Patient Appearance: Well Grooomed Patient Orientation: Person Level of Consciousness: Awake Patient Behavior: Cooperative Mood Description: Calm Affect Description: Constricted Patient Cognition Impaired: No Ability to Follow Directions: Good Speech Pattern: Clear Hallucinations: None Delusions: Not Present Thought Process: Intact Thought Content: positive for Circumstantial Judgement: Fair Diagnostics Vital Signs (24Hr): Vital Signs - 24 hr 01/25/21 20:00 01/25/21 22:15 01/26/21 09:07 Temperature 97.7 F 96.4 F L Pulse Rate 76 79 81 Respiratory Rate 18 Blood Pressure 87/48 L 86/51 L 114/58 L Pulse Oximetry 98 100 01/26/21 09:19 Temperature Pulse Rate 81 Respiratory Rate Blood Pressure 114/58 L Pulse Oximetry Body Mass Index 21.7 Medications Medications Current Medications Acetaminophen (Acetaminophen 325 Mg Tablet) 650 mg PO Q6H PRN PRN Reason: Headache/Pain Mild Scale (1-3) Last Admin: 01/25/21 08:34 Dose: 650 mg Documented by: Al Hydroxide/Mg Hydroxide (Magnesium Hydrox/Alum Hydrox 30 Ml Oral.Susp) 30 ml PO Q6H PRN PRN Reason: Heartburn/Nausea Last Admin: 01/23/21 21:07 Dose: 30 ml Documented by: Amlodipine Besylate (Amlodipine Besylate 5 Mg Tablet) 5 mg PO DAILY [facility]; Protocol Last Admin: 01/26/21 09:18 Dose: Not Given Documented by: Artificial Tears (Artificial Tears 15 Ml Drops) 1 drop EYE-BOTH Q4H PRN PRN Reason: Dry Eyes Last Admin: 01/26/21 09:56 Dose: 1 drop Documented by: Atorvastatin Calcium (Atorvastatin Calcium 10 Mg Tablet) 10 mg PO DAILY [facility] Last Admin: 01/26/21 09:01 Dose: 10 mg Documented by: Bupropion HCl (Bupropion Hcl Xl 150 Mg Tab.Er.24h) 150 mg PO DAILY [facility] Last Admin: 01/26/21 09:00 Dose: 150 mg Documented by: Docusate Sodium (Docusate Sodium 100 Mg Capsule) 100 mg PO BID [facility] Last Admin: 01/26/21 09:01 Dose: 100 mg Documented by: Famotidine (Famotidine 20 Mg Tablet) 20 mg PO BEDTIME [facility] Last Admin: 01/25/21 21:17 Dose: 20 mg Documented by: Gabapentin (Gabapentin 100 Mg Capsule) 100 mg PO BID@0800,1500 [facility] Last Admin: 01/26/21 08:59 Dose: 100 mg Documented by: Hydroxyzine HCl (Hydroxyzine Hcl 25 Mg Tablet) 25 mg PO BEDTIME PRN PRN Reason: Anxiety Last Admin: 01/19/21 22:24 Dose: 25 mg Documented by: Lisinopril (Lisinopril 40 Mg Tablet) 40 mg PO DAILY [facility]; Protocol Last Admin: 01/26/21 09:19 Dose: Not Given Documented by: Lorazepam (Lorazepam 0.5 Mg Tablet) 0.5 mg PO Q8H PRN PRN Reason: Anxiety Last Admin: 01/26/21 10:48 Dose: 0.5 mg Documented by: Magnesium Hydroxide (Milk Of Magnesia 30 Ml Oral.Susp) 30 ml PO DAILY PRN PRN Reason: Constipation Nicotine (Nicotine 14 Mg Patch.Td24) 14 mg TRANSDERMA DAILY [facility] Last Admin: 01/26/21 08:59 Dose: 14 mg Documented by: Nicotine Polacrilex (Nicotine Polacrilex 2 Mg Gum) 2 mg BUCCAL Q2H PRN PRN Reason: Nicotine Cravings Nortriptyline HCl (Nortriptyline Hcl 25 Mg Capsule) 25 mg PO BEDTIME [facility] Last Admin: 01/25/21 21:18 Dose: 25 mg Documented by: Nystatin (Nystatin Powder 15 Gm Bottle) 1 appl TOPICAL BID [facility]; Protocol Last Admin: 01/26/21 09:56 Dose: 1 appl Documented by: Omeprazole (Omeprazole 20 Mg Capsule.Dr) 20 mg PO DAILY@0630 [facility] Last Admin: 01/26/21 09:01 Dose: 20 mg Documented by: Senna (Senna [place] Extract Oral Syrup 15 Ml Syrup) 15 ml PO BEDTIME [facility] Last Admin: 01/25/21 21:19 Dose: 15 ml Documented by: Trazodone HCl (Trazodone Hcl 50 Mg Tablet) 50 mg PO BEDTIME PRN PRN Reason: Insomnia Last Admin: 01/25/21 01:41 Dose: 50 mg Documented by: Zolpidem Tartrate (Zolpidem Tartrate 5 Mg Tablet) 5 mg PO BEDTIME [facility] Last Admin: 01/25/21 21:17 Dose: 5 mg Documented by: Allergies Allergies Allergy/AdvReac Type Severity Reaction Status Date / Time amoxicillin Allergy Unknown Verified 01/19/21 17:49 NSAIDS (Non-Steroidal Allergy Unknown Verified 01/19/21 17:49 Anti-Inflamma Penicillins Allergy Unknown Verified 01/19/21 17:49 Sulfa (Sulfonamide Allergy Unknown Verified 01/19/21 17:49 Antibiotics) tetracycline Allergy Unknown Verified 01/19/21 17:49 Tetracyclines Allergy Unknown Verified 01/19/21 17:49 Assessment & Plan Assessment & Plan (1) GERD (gastroesophageal reflux disease): Status: Acute Code(s): K21.9 - Gastro-esophageal reflux disease without esophagitis Assessment and Plan: 65-year-old female admitted for dysphoria and several somatic complaints, admitted for exacerbation of dysphoria. Plan: 1. Increase Pamelor up to 25 mg po qhs. 2. Add Gabapentin 100 mg po bid. 3. Add Ambien 5 mg po qhs.. 4. Gather collateral information. I spent minutes with the patient and/or on the patient floor today, greater than?50% of which was spent counseling/coordinating care. Reason for contiued inpatient stay Substantial Risk for: stable for discharge, rapid decompensation and med/psych decompensation
[2021-01-26] MEDS: Acetaminophen 325 MG TABLET 650 MG PO (14:09)
[2021-01-26 20:00] VITALS: BP 94/56; PULSE 73; RESP 18; TEMP 36.3; O2SAT 100
[2021-01-26] MEDS: Famotidine 20 MG TABLET PO (20:10)
[2021-01-26] MEDS: Zolpidem Tartrate 5 MG TABLET PO (20:10)
[2021-01-26] MEDS: Nortriptyline HCl 25 MG CAPSULE PO (20:10)
[2021-01-27] MEDS: traZODone HCL 50 MG TABLET PO (02:35)
[2021-01-27] MEDS: Omeprazole 20 MG CAPSULE.DR PO (07:55)
[2021-01-27] MEDS: Gabapentin 100 MG CAPSULE PO ×2 (07:55→15:15)
[2021-01-27] MEDS: buPROPion HCl XL 150 MG TAB.ER.24H PO (07:55)
[2021-01-27] MEDS: amLODIPine Besylate 5 MG TABLET PO (07:55)
[2021-01-27] MEDS: Atorvastatin Calcium 10 MG TABLET PO (07:55)
[2021-01-27] MEDS: lisinopriL 40 MG TABLET PO (07:55)
[2021-01-27] MEDS: Docusate Sodium 100 MG CAPSULE PO ×2 (07:55→20:27)
[2021-01-27] MEDS: Nicotine 14 MG PATCH.TD24 TRANSDERMA (07:56)
[2021-01-27] MEDS: Nystatin Powder 15 GM BOTTLE 1 APPL TOPICAL ×2 (08:55→20:27)
[2021-01-27] MEDS: LORazepam 0.5 MG TABLET PO ×2 (08:55→17:05)
[2021-01-27] MEDS: Acetaminophen 325 MG TABLET 650 MG PO (10:27)
--- NOTE | 2021-01-27 15:35 | P.PNPSI_ITS ---
Subjective Subjective Date of Service: 01/27/21 Reason For Visit: Adjustment disorder Subjective Notes: Conditional Voluntary Interim History: Pt reports that she is less depressed since coming to the hospital. She denies suicidal and homicidal ideation. She reports poor sleep last night. She reports difficulty falling and staying asleep but nursing reports pt appeared to sleep through the night. She focused on dry eyes, and how this symptoms is indication of a more serious medical condition that has not been identified by providers she has seen in community. Somatically focused. Per nursing, she has been visible in the unit, social with select peers. Medication Compliance: Yes Attending Groups: Intermittent Review of Systems Review of Systems Denies chest pain Denies shortness of breath Admits to nausea and vomiting in the absence of diarrhea Mental Status Exam Mental Status Exam Patient Appearance: Well Grooomed Patient Orientation: Person, Place, Time and Situation Level of Consciousness: Awake and Appropriate Patient Behavior: Cooperative Mood Description: Calm Affect Description: Constricted Patient Cognition Impaired: No Ability to Follow Directions: Good Speech Pattern: Clear and Spontaneous Speech Hallucinations: None Delusions: Not Present Thought Process: Linear Thought Content: positive for Intact and positive for Hypochondriasis Depressive Symptoms: Increased Anxiety, Difficulty Sleeping and Muscle Pain Judgement: Fair Diagnostics Vital Signs (24Hr): Vital Signs - 24 hr 01/26/21 20:00 Temperature 97.3 F Pulse Rate 73 Respiratory Rate 18 Blood Pressure 94/56 L Pulse Oximetry 100 Body Mass Index 21.7 Medications Medications Current Medications Acetaminophen (Acetaminophen 325 Mg Tablet) 650 mg PO Q6H PRN PRN Reason: Headache/Pain Mild Scale (1-3) Last Admin: 01/27/21 10:27 Dose: 650 mg Documented by: Al Hydroxide/Mg Hydroxide (Magnesium Hydrox/Alum Hydrox 30 Ml Oral.Susp) 30 ml PO Q6H PRN PRN Reason: Heartburn/Nausea Last Admin: 01/23/21 21:07 Dose: 30 ml Documented by: Amlodipine Besylate (Amlodipine Besylate 5 Mg Tablet) 5 mg PO DAILY [facility]; Protocol Last Admin: 01/27/21 07:55 Dose: 5 mg Documented by: Artificial Tears (Artificial Tears 15 Ml Drops) 1 drop EYE-BOTH Q4H PRN PRN Reason: Dry Eyes Last Admin: 01/26/21 20:10 Dose: 1 drop Documented by: Atorvastatin Calcium (Atorvastatin Calcium 10 Mg Tablet) 10 mg PO DAILY [facility] Last Admin: 01/27/21 07:55 Dose: 10 mg Documented by: Bupropion HCl (Bupropion Hcl Xl 150 Mg Tab.Er.24h) 150 mg PO DAILY [facility] Last Admin: 01/27/21 07:55 Dose: 150 mg Documented by: Docusate Sodium (Docusate Sodium 100 Mg Capsule) 100 mg PO BID [facility] Last Admin: 01/27/21 07:55 Dose: 100 mg Documented by: Famotidine (Famotidine 20 Mg Tablet) 20 mg PO BEDTIME [facility] Last Admin: 01/26/21 20:10 Dose: 20 mg Documented by: Gabapentin (Gabapentin 100 Mg Capsule) 100 mg PO BID@0800,1500 [facility] Last Admin: 01/27/21 15:15 Dose: 100 mg Documented by: Hydroxyzine HCl (Hydroxyzine Hcl 25 Mg Tablet) 25 mg PO BEDTIME PRN PRN Reason: Anxiety Last Admin: 01/19/21 22:24 Dose: 25 mg Documented by: Lisinopril (Lisinopril 40 Mg Tablet) 40 mg PO DAILY [facility]; Protocol Last Admin: 01/27/21 07:55 Dose: 40 mg Documented by: Lorazepam (Lorazepam 0.5 Mg Tablet) 0.5 mg PO Q8H PRN PRN Reason: Anxiety Last Admin: 01/27/21 08:55 Dose: 0.5 mg Documented by: Magnesium Hydroxide (Milk Of Magnesia 30 Ml Oral.Susp) 30 ml PO DAILY PRN PRN Reason: Constipation Nicotine (Nicotine 14 Mg Patch.Td24) 14 mg TRANSDERMA DAILY [facility] Last Admin: 01/27/21 07:56 Dose: 14 mg Documented by: Nicotine Polacrilex (Nicotine Polacrilex 2 Mg Gum) 2 mg BUCCAL Q2H PRN PRN Reason: Nicotine Cravings Nortriptyline HCl (Nortriptyline Hcl 25 Mg Capsule) 25 mg PO BEDTIME [facility] Last Admin: 01/26/21 20:10 Dose: 25 mg Documented by: Nystatin (Nystatin Powder 15 Gm Bottle) 1 appl TOPICAL BID [facility]; Protocol Last Admin: 01/27/21 08:55 Dose: 1 appl Documented by: Omeprazole (Omeprazole 20 Mg Capsule.) 20 mg PO DAILY@0630 [facility] Last Admin: 01/27/21 07:55 Dose: 20 mg Documented by: Senna (Senna [place] Extract Oral Syrup 15 Ml Syrup) 15 ml PO BEDTIME [facility] Last Admin: 01/26/21 20:10 Dose: 15 ml Documented by: Trazodone HCl (Trazodone Hcl 50 Mg Tablet) 50 mg PO BEDTIME PRN PRN Reason: Insomnia Last Admin: 01/27/21 02:35 Dose: 50 mg Documented by: Zolpidem Tartrate (Zolpidem Tartrate 5 Mg Tablet) 5 mg PO BEDTIME [facility] Last Admin: 01/26/21 20:10 Dose: 5 mg Documented by: Allergies Allergies Allergy/AdvReac Type Severity Reaction Status Date / Time amoxicillin Allergy Unknown Verified 01/19/21 17:49 NSAIDS (Non-Steroidal Allergy Unknown Verified 01/19/21 17:49 Anti-Inflamma Penicillins Allergy Unknown Verified 01/19/21 17:49 Sulfa (Sulfonamide Allergy Unknown Verified 01/19/21 17:49 Antibiotics) tetracycline Allergy Unknown Verified 01/19/21 17:49 Tetracyclines Allergy Unknown Verified 01/19/21 17:49 Assessment & Plan Assessment & Plan (1) GERD (gastroesophageal reflux disease): Status: Acute Code(s): K21.9 - Gastro-esophageal reflux disease without esophagitis Assessment and Plan: 65-year-old female admitted for dysphoria and several somatic complaints, admitted for exacerbation of dysphoria. Plan: 1. Increase Pamelor up to 25 mg po qhs. 2. Add Gabapentin 100 mg po bid. 3. Add Ambien 5 mg po qhs.. 4. Gather collateral information. I spent minutes with the patient and/or on the patient floor today, greater than?50% of which was spent counseling/coordinating care. Reason for contiued inpatient stay Substantial Risk for: inability to function
[2021-01-27 20:10] VITALS: BP 123/61; PULSE 71; RESP 17; TEMP 36.6; O2SAT 100
[2021-01-27] MEDS: Zolpidem Tartrate 5 MG TABLET PO (20:27)
[2021-01-27] MEDS: Nortriptyline HCl 25 MG CAPSULE PO (20:27)
[2021-01-28] MEDS: LORazepam 0.5 MG TABLET PO ×3 (01:08→19:59)
[2021-01-28] MEDS: hydrOXYzine HCL 25 MG TABLET PO (03:40)
--- NOTE | 2021-01-28 07:23 | HO.PSYCHPN ---
Subjective Subjective Date of Service: 01/28/21 Reason For Visit: Adjustment disorder Subjective Notes: Conditional Voluntary Interim History: Pt reports that she is less depressed since coming to the hospital. She denies suicidal and homicidal ideation. She reports poor sleep last night. She continues to focus on dry eyes, and how this symptoms is indication of a more serious medical condition that has not been identified by providers she has seen in community. Somatically focused. She denies SI/HI. Per nursing, she has been visible in the unit, social with select peers. Medication Compliance: Yes Side effects from medications: No Attending Groups: Intermittent Review of Systems Acute medical concerns: No Review of Systems Review of Systems Denies chest pain Denies shortness of breath Admits to nausea and vomiting in the absence of diarrhea Mental Status Exam Mental Status Exam Patient Appearance: Well Grooomed Patient Orientation: Person, Place, Time and Situation Level of Consciousness: Awake and Appropriate Patient Behavior: Cooperative Mood Description: Calm Affect Description: Constricted Patient Cognition Impaired: No Ability to Follow Directions: Good Speech Pattern: Clear and Spontaneous Speech Diagnostics Vital Signs (24Hr): Vital Signs - 24 hr 01/28/21 08:30 01/28/21 08:57 01/28/21 22:42 Temperature 96 F L 97.8 F Pulse Rate 82 82 75 Respiratory Rate 17 Blood Pressure 136/69 136/69 93/51 L Pulse Oximetry 100 96 Body Mass Index 21.7 Medications Medications Current Medications Acetaminophen (Acetaminophen 325 Mg Tablet) 650 mg PO Q6H PRN PRN Reason: Headache/Pain Mild Scale (1-3) Last Admin: 01/28/21 18:23 Dose: 650 mg Documented by: Al Hydroxide/Mg Hydroxide (Magnesium Hydrox/Alum Hydrox 30 Ml Oral.Susp) 30 ml PO Q6H PRN PRN Reason: Heartburn/Nausea Last Admin: 01/23/21 21:07 Dose: 30 ml Documented by: Amlodipine Besylate (Amlodipine Besylate 5 Mg Tablet) 5 mg PO DAILY [facility]; Protocol Last Admin: 01/28/21 08:30 Dose: 5 mg Documented by: Artificial Tears (Artificial Tears 15 Ml Drops) 1 drop EYE-BOTH Q4H PRN PRN Reason: Dry Eyes Last Admin: 01/26/21 20:10 Dose: 1 drop Documented by: Atorvastatin Calcium (Atorvastatin Calcium 10 Mg Tablet) 10 mg PO DAILY [facility] Last Admin: 01/28/21 08:30 Dose: 10 mg Documented by: Bupropion HCl (Bupropion Hcl Xl 150 Mg Tab.Er.24h) 150 mg PO DAILY [facility] Last Admin: 01/28/21 08:29 Dose: 150 mg Documented by: Docusate Sodium (Docusate Sodium 100 Mg Capsule) 100 mg PO BID [facility] Last Admin: 01/28/21 21:27 Dose: 100 mg Documented by: Famotidine (Famotidine 20 Mg Tablet) 20 mg PO BEDTIME [facility] Last Admin: 01/28/21 21:27 Dose: 20 mg Documented by: Gabapentin (Gabapentin 100 Mg Capsule) 100 mg PO BID@0800,1500 [facility] Last Admin: 01/28/21 14:47 Dose: 100 mg Documented by: Hydroxyzine HCl (Hydroxyzine Hcl 25 Mg Tablet) 25 mg PO BEDTIME PRN PRN Reason: Anxiety Last Admin: 01/28/21 03:40 Dose: 25 mg Documented by: Lisinopril (Lisinopril 40 Mg Tablet) 40 mg PO DAILY [facility]; Protocol Last Admin: 01/28/21 08:30 Dose: 40 mg Documented by: Lorazepam (Lorazepam 0.5 Mg Tablet) 0.5 mg PO Q8H PRN PRN Reason: Anxiety Last Admin: 01/29/21 06:49 Dose: 0.5 mg Documented by: Magnesium Hydroxide (Milk Of Magnesia 30 Ml Oral.Susp) 30 ml PO DAILY PRN PRN Reason: Constipation Nicotine (Nicotine 14 Mg Patch.Td24) 14 mg TRANSDERMA DAILY [facility] Last Admin: 01/28/21 08:31 Dose: 14 mg Documented by: Nicotine Polacrilex (Nicotine Polacrilex 2 Mg Gum) 2 mg BUCCAL Q2H PRN PRN Reason: Nicotine Cravings Nortriptyline HCl (Nortriptyline Hcl 25 Mg Capsule) 25 mg PO BEDTIME [facility] Last Admin: 01/28/21 21:27 Dose: 25 mg Documented by: Nystatin (Nystatin Powder 15 Gm Bottle) 1 appl TOPICAL BID [facility]; Protocol Last Admin: 01/28/21 21:31 Dose: 1 appl Documented by: Omeprazole (Omeprazole 20 Mg Capsule.Dr) 20 mg PO DAILY@0630 [facility] Last Admin: 01/29/21 06:13 Dose: 20 mg Documented by: Senna (Senna [place] Extract Oral Syrup 15 Ml Syrup) 15 ml PO BEDTIME [facility] Last Admin: 01/28/21 21:27 Dose: 15 ml Documented by: Trazodone HCl (Trazodone Hcl 50 Mg Tablet) 50 mg PO BEDTIME PRN PRN Reason: Insomnia Last Admin: 01/27/21 02:35 Dose: 50 mg Documented by: Allergies Allergies Allergy/AdvReac Type Severity Reaction Status Date / Time amoxicillin Allergy Unknown Verified 01/19/21 17:49 NSAIDS (Non-Steroidal Allergy Unknown Verified 01/19/21 17:49 Anti-Inflamma Penicillins Allergy Unknown Verified 01/19/21 17:49 Sulfa (Sulfonamide Allergy Unknown Verified 01/19/21 17:49 Antibiotics) tetracycline Allergy Unknown Verified 01/19/21 17:49 Tetracyclines Allergy Unknown Verified 01/19/21 17:49 Assessment & Plan Assessment & Plan (1) GERD (gastroesophageal reflux disease): Status: Acute Code(s): K21.9 - Gastro-esophageal reflux disease without esophagitis Assessment and Plan: 65-year-old female admitted for dysphoria and several somatic complaints, admitted for exacerbation of dysphoria. Plan: 01/28- continue per primary treatment team 1. Continue Pamelor up to 25 mg po qhs. 2. Continue Gabapentin 100 mg po bid. 3. Continue Ambien 5 mg po qhs.. 4. Gather collateral information. I spent minutes with the patient and/or on the patient floor today, greater than?50% of which was spent counseling/coordinating care. Reason for contiued inpatient stay Substantial Risk for: inability to function
[2021-01-28] MEDS: Docusate Sodium 100 MG CAPSULE PO ×2 (08:29→21:27)
[2021-01-28] MEDS: Gabapentin 100 MG CAPSULE PO ×2 (08:29→14:47)
[2021-01-28] MEDS: Omeprazole 20 MG CAPSULE.DR PO (08:29)
[2021-01-28] MEDS: buPROPion HCl XL 150 MG TAB.ER.24H PO (08:29)
[2021-01-28 08:30] VITALS: BP 136/69; PULSE 82
[2021-01-28] MEDS: lisinopriL 40 MG TABLET PO (08:30)
[2021-01-28] MEDS: amLODIPine Besylate 5 MG TABLET PO (08:30)
[2021-01-28] MEDS: Atorvastatin Calcium 10 MG TABLET PO (08:30)
[2021-01-28] MEDS: Nicotine 14 MG PATCH.TD24 TRANSDERMA (08:31)
[2021-01-28 08:57] VITALS: BP 136/69; PULSE 82; TEMP 35.5; O2SAT 100
[2021-01-28] MEDS: Nystatin Powder 15 GM BOTTLE 1 APPL TOPICAL ×2 (09:17→21:31)
[2021-01-28] MEDS: Acetaminophen 325 MG TABLET 650 MG PO ×2 (11:19→18:23)
[2021-01-28] MEDS: Nortriptyline HCl 25 MG CAPSULE PO (21:27)
[2021-01-28] MEDS: Famotidine 20 MG TABLET PO (21:27)
[2021-01-28 22:42] VITALS: BP 93/51; PULSE 75; RESP 17; TEMP 36.6; O2SAT 96
[2021-01-29 06:00] VITALS: BP 112/73; PULSE 87; TEMP 35.9; O2SAT 100
[2021-01-29] MEDS: Omeprazole 20 MG CAPSULE.DR PO (06:13)
[2021-01-29] MEDS: LORazepam 0.5 MG TABLET PO ×3 (06:49→23:03)
[2021-01-29 09:20] VITALS: BP 112/73; PULSE 87
[2021-01-29] MEDS: Gabapentin 100 MG CAPSULE PO ×2 (09:20→14:41)
[2021-01-29] MEDS: buPROPion HCl XL 150 MG TAB.ER.24H PO (09:20)
[2021-01-29] MEDS: lisinopriL 40 MG TABLET PO (09:20)
[2021-01-29] MEDS: Atorvastatin Calcium 10 MG TABLET PO (09:20)
[2021-01-29] MEDS: Docusate Sodium 100 MG CAPSULE PO ×2 (09:20→21:09)
[2021-01-29] MEDS: amLODIPine Besylate 5 MG TABLET PO (09:20)
[2021-01-29] MEDS: Nicotine 14 MG PATCH.TD24 TRANSDERMA (09:22)
[2021-01-29] MEDS: Nystatin Powder 15 GM BOTTLE 1 APPL TOPICAL ×2 (09:24→21:12)
[2021-01-29] MEDS: Acetaminophen 325 MG TABLET 650 MG PO (11:31)
[2021-01-29 18:00] VITALS: BP 133/67; PULSE 90; RESP 18; TEMP 35.9; O2SAT 99
--- NOTE | 2021-01-29 20:25 | HO.PSYCHPN ---
Subjective Subjective Date of Service: 01/29/21 Reason For Visit: Adjustment disorder Interim History: pt reports she recently had an onset of severe anxiety which has been quite debilitating. her depression has improved since admission, nbut her anxiety has persisted. she reports she is planning to discharge tomorrow. in-depth discussion had regarding her medications regimen and its utility for the treatment of anxiety. per staff, slept 2-6. spending lots of time in her room reading. no SI, safe. Mental Status Exam Mental Status Exam Patient Appearance: Well Grooomed Patient Orientation: Person, Place, Time and Situation Level of Consciousness: Awake and Appropriate Patient Behavior: Cooperative Mood Description: Calm Affect Description: Constricted Patient Cognition Impaired: No Ability to Follow Directions: Good Speech Pattern: Clear and Spontaneous Speech Diagnostics Vital Signs (24Hr): Vital Signs - 24 hr 01/28/21 22:42 01/29/21 06:00 01/29/21 09:20 Temperature 97.8 F 96.6 F L Pulse Rate 75 87 87 Respiratory Rate 17 Blood Pressure 93/51 L 112/73 112/73 Pulse Oximetry 96 100 Body Mass Index 21.7 Medications Medications Current Medications Acetaminophen (Acetaminophen 325 Mg Tablet) 650 mg PO Q6H PRN PRN Reason: Headache/Pain Mild Scale (1-3) Last Admin: 01/29/21 11:31 Dose: 650 mg Documented by: Al Hydroxide/Mg Hydroxide (Magnesium Hydrox/Alum Hydrox 30 Ml Oral.Susp) 30 ml PO Q6H PRN PRN Reason: Heartburn/Nausea Last Admin: 01/23/21 21:07 Dose: 30 ml Documented by: Amlodipine Besylate (Amlodipine Besylate 5 Mg Tablet) 5 mg PO DAILY [facility]; Protocol Last Admin: 01/29/21 09:20 Dose: 5 mg Documented by: Artificial Tears (Artificial Tears 15 Ml Drops) 1 drop EYE-BOTH Q4H PRN PRN Reason: Dry Eyes Last Admin: 01/26/21 20:10 Dose: 1 drop Documented by: Atorvastatin Calcium (Atorvastatin Calcium 10 Mg Tablet) 10 mg PO DAILY [facility] Last Admin: 01/29/21 09:20 Dose: 10 mg Documented by: Bupropion HCl (Bupropion Hcl Xl 150 Mg Tab.Er.24h) 150 mg PO DAILY [facility] Last Admin: 01/29/21 09:20 Dose: 150 mg Documented by: Docusate Sodium (Docusate Sodium 100 Mg Capsule) 100 mg PO BID [facility] Last Admin: 01/29/21 09:20 Dose: 100 mg Documented by: Famotidine (Famotidine 20 Mg Tablet) 20 mg PO BEDTIME [facility] Last Admin: 01/28/21 21:27 Dose: 20 mg Documented by: Gabapentin (Gabapentin 100 Mg Capsule) 100 mg PO BID@0800,1500 [facility] Last Admin: 01/29/21 14:41 Dose: 100 mg Documented by: Hydroxyzine HCl (Hydroxyzine Hcl 25 Mg Tablet) 25 mg PO BEDTIME PRN PRN Reason: Anxiety Last Admin: 01/28/21 03:40 Dose: 25 mg Documented by: Lisinopril (Lisinopril 40 Mg Tablet) 40 mg PO DAILY [facility]; Protocol Last Admin: 01/29/21 09:20 Dose: 40 mg Documented by: Lorazepam (Lorazepam 0.5 Mg Tablet) 0.5 mg PO Q8H PRN PRN Reason: Anxiety Last Admin: 01/29/21 14:41 Dose: 0.5 mg Documented by: Magnesium Hydroxide (Milk Of Magnesia 30 Ml Oral.Susp) 30 ml PO DAILY PRN PRN Reason: Constipation Nicotine (Nicotine 14 Mg Patch.Td24) 14 mg TRANSDERMA DAILY [facility] Last Admin: 01/29/21 09:22 Dose: 14 mg Documented by: Nicotine Polacrilex (Nicotine Polacrilex 2 Mg Gum) 2 mg BUCCAL Q2H PRN PRN Reason: Nicotine Cravings Nortriptyline HCl (Nortriptyline Hcl 25 Mg Capsule) 25 mg PO BEDTIME [facility] Last Admin: 01/28/21 21:27 Dose: 25 mg Documented by: Nystatin (Nystatin Powder 15 Gm Bottle) 1 appl TOPICAL BID [facility]; Protocol Last Admin: 01/29/21 09:24 Dose: 1 appl Documented by: Omeprazole (Omeprazole 20 Mg Capsule.Dr) 20 mg PO DAILY@0630 [facility] Last Admin: 01/29/21 06:13 Dose: 20 mg Documented by: Senna (Senna [place] Extract Oral Syrup 15 Ml Syrup) 15 ml PO BEDTIME [facility] Last Admin: 01/28/21 21:27 Dose: 15 ml Documented by: Trazodone HCl (Trazodone Hcl 50 Mg Tablet) 50 mg PO BEDTIME PRN PRN Reason: Insomnia Last Admin: 01/27/21 02:35 Dose: 50 mg Documented by: Allergies Allergies Allergy/AdvReac Type Severity Reaction Status Date / Time amoxicillin Allergy Unknown Verified 01/19/21 17:49 NSAIDS (Non-Steroidal Allergy Unknown Verified 01/19/21 17:49 Anti-Inflamma Penicillins Allergy Unknown Verified 01/19/21 17:49 Sulfa (Sulfonamide Allergy Unknown Verified 01/19/21 17:49 Antibiotics) tetracycline Allergy Unknown Verified 01/19/21 17:49 Tetracyclines Allergy Unknown Verified 01/19/21 17:49 Assessment & Plan Assessment & Plan (1) GERD (gastroesophageal reflux disease): Status: Acute Code(s): K21.9 - Gastro-esophageal reflux disease without esophagitis Assessment and Plan: 65-year-old female admitted for dysphoria and several somatic complaints, admitted for exacerbation of dysphoria. Plan: 01/29- continue per primary treatment team 1. Continue Pamelor up to 25 mg po qhs. 2. Continue Gabapentin 100 mg po bid. 3. Continue Ambien 5 mg po qhs.. 4. Gather collateral information. I spent minutes with the patient and/or on the patient floor today, greater than?50% of which was spent counseling/coordinating care. Reason for contiued inpatient stay Substantial Risk for: inability to function and rapid decompensation
[2021-01-29] MEDS: Nortriptyline HCl 25 MG CAPSULE PO (21:09)
[2021-01-29] MEDS: Famotidine 20 MG TABLET PO (21:09)
[2021-01-30] MEDS: Omeprazole 20 MG CAPSULE.DR PO (06:12)
[2021-01-30] MEDS: LORazepam 0.5 MG TABLET PO ×2 (07:38→17:11)
[2021-01-30 08:13] VITALS: BP 127/64; PULSE 79
[2021-01-30] MEDS: lisinopriL 40 MG TABLET PO (08:13)
[2021-01-30] MEDS: Docusate Sodium 100 MG CAPSULE PO ×2 (08:13→21:24)
[2021-01-30] MEDS: Gabapentin 100 MG CAPSULE PO ×2 (08:13→15:34)
[2021-01-30] MEDS: Atorvastatin Calcium 10 MG TABLET PO (08:13)
[2021-01-30 08:14] VITALS: BP 127/64; PULSE 79
[2021-01-30] MEDS: Nicotine 14 MG PATCH.TD24 TRANSDERMA (08:14)
[2021-01-30] MEDS: amLODIPine Besylate 5 MG TABLET PO (08:14)
[2021-01-30] MEDS: buPROPion HCl XL 150 MG TAB.ER.24H PO (08:14)
[2021-01-30 08:53] VITALS: BP 127/64; PULSE 79; TEMP 36.1; O2SAT 98
[2021-01-30] MEDS: Nystatin Powder 15 GM BOTTLE 1 APPL TOPICAL ×2 (10:45→21:36)
[2021-01-30] MEDS: Acetaminophen 325 MG TABLET 650 MG PO ×2 (10:45→17:11)
--- NOTE | 2021-01-30 12:23 | P.PNPSI_ITS ---
Subjective Subjective Date of Service: 01/30/21 Reason For Visit: Adjustment disorder Subjective Notes: Conditional Voluntary Interim History: The nursing staff reported that over the weekend that she was chronically dysphoric but safe. On interview, she reported dysphoria, no safety concerns, we will discharge her tomorrow. Mental Status Exam Mental Status Exam Patient Appearance: Well Grooomed Patient Orientation: Person and Situation Level of Consciousness: Awake Patient Behavior: Cooperative Mood Description: Depressed Affect Description: Constricted Patient Cognition Impaired: No Ability to Follow Directions: Good Speech Pattern: Clear Hallucinations: None Delusions: Not Present Thought Process: Distracted and Linear Thought Content: positive for Circumstantial Judgement: Fair Diagnostics Vital Signs (24Hr): Vital Signs - 24 hr 01/29/21 18:00 01/30/21 08:13 01/30/21 08:14 Temperature 96.7 F L Pulse Rate 90 79 79 Respiratory Rate 18 Blood Pressure 133/67 127/64 127/64 Pulse Oximetry 99 01/30/21 08:53 Temperature 96.9 F Pulse Rate 79 Respiratory Rate Blood Pressure 127/64 Pulse Oximetry 98 Body Mass Index 21.7 Medications Medications Current Medications Acetaminophen (Acetaminophen 325 Mg Tablet) 650 mg PO Q6H PRN PRN Reason: Headache/Pain Mild Scale (1-3) Last Admin: 01/30/21 10:45 Dose: 650 mg Documented by: Al Hydroxide/Mg Hydroxide (Magnesium Hydrox/Alum Hydrox 30 Ml Oral.Susp) 30 ml PO Q6H PRN PRN Reason: Heartburn/Nausea Last Admin: 01/23/21 21:07 Dose: 30 ml Documented by: Amlodipine Besylate (Amlodipine Besylate 5 Mg Tablet) 5 mg PO DAILY [facility]; Protocol Last Admin: 01/30/21 08:14 Dose: 5 mg Documented by: Artificial Tears (Artificial Tears 15 Ml Drops) 1 drop EYE-BOTH Q4H PRN PRN Reason: Dry Eyes Last Admin: 01/26/21 20:10 Dose: 1 drop Documented by: Atorvastatin Calcium (Atorvastatin Calcium 10 Mg Tablet) 10 mg PO DAILY [facility] Last Admin: 01/30/21 08:13 Dose: 10 mg Documented by: Bupropion HCl (Bupropion Hcl Xl 150 Mg Tab.Er.24h) 150 mg PO DAILY [facility] Last Admin: 01/30/21 08:14 Dose: 150 mg Documented by: Docusate Sodium (Docusate Sodium 100 Mg Capsule) 100 mg PO BID [facility] Last Admin: 01/30/21 08:13 Dose: 100 mg Documented by: Famotidine (Famotidine 20 Mg Tablet) 20 mg PO BEDTIME [facility] Last Admin: 01/29/21 21:09 Dose: 20 mg Documented by: Gabapentin (Gabapentin 100 Mg Capsule) 100 mg PO BID@0800,1500 [facility] Last Admin: 01/30/21 08:13 Dose: 100 mg Documented by: Hydroxyzine HCl (Hydroxyzine Hcl 25 Mg Tablet) 25 mg PO BEDTIME PRN PRN Reason: Anxiety Last Admin: 01/28/21 03:40 Dose: 25 mg Documented by: Lisinopril (Lisinopril 40 Mg Tablet) 40 mg PO DAILY [facility]; Protocol Last Admin: 01/30/21 08:13 Dose: 40 mg Documented by: Lorazepam (Lorazepam 0.5 Mg Tablet) 0.5 mg PO Q8H PRN PRN Reason: Anxiety Last Admin: 01/30/21 07:38 Dose: 0.5 mg Documented by: Magnesium Hydroxide (Milk Of Magnesia 30 Ml Oral.Susp) 30 ml PO DAILY PRN PRN Reason: Constipation Nicotine (Nicotine 14 Mg Patch.Td24) 14 mg TRANSDERMA DAILY [facility] Last Admin: 01/30/21 08:14 Dose: 14 mg Documented by: Nicotine Polacrilex (Nicotine Polacrilex 2 Mg Gum) 2 mg BUCCAL Q2H PRN PRN Reason: Nicotine Cravings Nortriptyline HCl (Nortriptyline Hcl 25 Mg Capsule) 25 mg PO BEDTIME [facility] Last Admin: 01/29/21 21:09 Dose: 25 mg Documented by: Nystatin (Nystatin Powder 15 Gm Bottle) 1 appl TOPICAL BID [facility]; Protocol Last Admin: 01/30/21 10:45 Dose: 1 appl Documented by: Omeprazole (Omeprazole 20 Mg Capsule.Dr) 20 mg PO DAILY@0630 [facility] Last Admin: 01/30/21 06:12 Dose: 20 mg Documented by: Senna (Senna [place] Extract Oral Syrup 15 Ml Syrup) 15 ml PO BEDTIME [facility] Last Admin: 01/29/21 21:09 Dose: 15 ml Documented by: Trazodone HCl (Trazodone Hcl 50 Mg Tablet) 50 mg PO BEDTIME PRN PRN Reason: Insomnia Last Admin: 01/27/21 02:35 Dose: 50 mg Documented by: Allergies Allergies Allergy/AdvReac Type Severity Reaction Status Date / Time amoxicillin Allergy Unknown Verified 01/19/21 17:49 NSAIDS (Non-Steroidal Allergy Unknown Verified 01/19/21 17:49 Anti-Inflamma Penicillins Allergy Unknown Verified 01/19/21 17:49 Sulfa (Sulfonamide Allergy Unknown Verified 01/19/21 17:49 Antibiotics) tetracycline Allergy Unknown Verified 01/19/21 17:49 Tetracyclines Allergy Unknown Verified 01/19/21 17:49 Assessment & Plan Assessment & Plan (1) GERD (gastroesophageal reflux disease): Status: Acute Code(s): K21.9 - Gastro-esophageal reflux disease without esophagitis Assessment and Plan: 65-year-old female admitted for dysphoria and several somatic complaints, admitted for exacerbation of dysphoria. Plan: 01/29- continue per primary treatment team 1. Continue Pamelor up to 25 mg po qhs. 2. Continue Gabapentin 100 mg po bid. 3. Continue Ambien 5 mg po qhs.. 4. Discharge tomorrow I spent minutes with the patient and/or on the patient floor today, greater than?50% of which was spent counseling/coordinating care. Reason for contiued inpatient stay Substantial Risk for: inability to function, rapid decompensation and med/psych decompensation
[2021-01-30 19:30] VITALS: BP 106/57; PULSE 72; RESP 16; TEMP 36.1; O2SAT 98
[2021-01-30] MEDS: Famotidine 20 MG TABLET PO (21:24)
[2021-01-30] MEDS: Nortriptyline HCl 25 MG CAPSULE PO (21:24)
[2021-01-30] MEDS: Magnesium Hydrox/Alum Hydrox 30 ML ORAL.SUSP PO (23:32)
[2021-01-31] MEDS: LORazepam 0.5 MG TABLET PO ×2 (01:19→09:49)
[2021-01-31 06:00] VITALS: BP 133/67; PULSE 98; RESP 18; TEMP 36.3
[2021-01-31] MEDS: Nicotine 14 MG PATCH.TD24 TRANSDERMA (07:55)
[2021-01-31] MEDS: Omeprazole 20 MG CAPSULE.DR PO (07:56)
[2021-01-31] MEDS: buPROPion HCl XL 150 MG TAB.ER.24H PO (07:56)
[2021-01-31] MEDS: Docusate Sodium 100 MG CAPSULE PO (07:56)
[2021-01-31 07:57] VITALS: BP 133/67; PULSE 98
[2021-01-31] MEDS: lisinopriL 40 MG TABLET PO (07:57)
[2021-01-31 07:58] VITALS: BP 133/67; PULSE 98
[2021-01-31] MEDS: amLODIPine Besylate 5 MG TABLET PO (07:58)
[2021-01-31] MEDS: Atorvastatin Calcium 10 MG TABLET PO (07:58)
[2021-01-31] MEDS: Gabapentin 100 MG CAPSULE PO (08:00)
[2021-01-31] MEDS: Nystatin Powder 15 GM BOTTLE 1 APPL TOPICAL (08:03)
--- NOTE | 2021-01-31 09:28 | PM.PSYDC ---
DS: Providers Provider Date of Service: 01/31/21 Date of admission: 01/19/21 17:20 Date of discharge: 01/31/21 Primary care physician: OWEN Allred Consults: 01/20/21 10:58 Consult to Hospitalist Routine Consulting Provider: Hospitalist Reason For Exam: Direct admission, needs physical exam, chronic leigh Attending physician on discharge: Rolan Barrera DS: Diagnosis Discharge Diagnosis (1) GERD (gastroesophageal reflux disease): Status: Acute (2) Major depressive disorder: Status: Acute (3) Panic disorder with agoraphobia: Status: Acute DS: Medications Discharge Medications Home Medications: Home Medications Medication Instructions Recorded Confirmed amlodipine 5 mg tablet 5 mg PO DAILY 01/19/21 01/19/21 atorvastatin 10 mg tablet 10 mg PO DAILY 01/19/21 01/19/21 bupropion HCl 100 mg tablet,12 hr 100 mg PO BID 01/19/21 01/19/21 sustained-release lisinopril 40 mg tablet 40 mg PO DAILY 01/19/21 01/19/21 nicotine 14 mg/24 hr daily 1 patch TRANSDERMAL DAILY 01/19/21 01/19/21 transdermal patch Mental Status Exam Mental Status Exam Patient Appearance: Well Grooomed Patient Orientation: Person, Place, Time and Situation Level of Consciousness: Awake and Appropriate Patient Behavior: Cooperative Mood Description: Depressed Affect Description: Constricted Patient Cognition Impaired: No Ability to Follow Directions: Good Speech Pattern: Clear Memory Description: Intact Hallucinations: None Delusions: Not Present Thought Process: Linear Thought Content: positive for Circumstantial Depressive Symptoms: Increased Irritability and Difficulty Sleeping Judgement: Fair DS: Summary Hospital Course Hospital Course: The patient was initially admitted for exacerbation of depressive symptoms and panic disorder with agarophobia, please see HPI of intake note for more details. The patient, historically, has been extremely sensitive to side effects and she has been taking Wellbutrin XL prescribed by her regular prescriber for several weeks. She complained of chronic pain with past use of opioids and benzodiazepines that she has stopped in October 2020 that triggered the current episode. On intake, we discussed her several problems besides her dysphoria and anxiety, and she agreed to start Pamelor, titrated slowly up to 25 mg po qhs to target depression, anxiety and chronic pain. We also added Gabapentin at a low dose to target anxiety and chronic pain with fair tolerability. It was seen by the staff that the patient's mood was on correlation with stressors and she showed signs and symptoms of learned helplessness. During the hospitalization, the patient participated minimally to group therapy and she spent most of her time reading books. No evidence of cognitive deterioration was noted. The patient's mood improved and since there were no safety concerns, discharge planning was discussed Time spent discussing smoking cessation with patient: 3 to 10 minutes Status at Discharge Cognitive/behavioral status at discharge: At baseline. Functional status at discharge: independent ambulation Overall status at discharge: patient is back to baseline Time Spent with Patient Time attestation: Total time spent providing and/or coordinating discharge services: Time spent: Less than 30 minutes Discharge Plan Discharge Patient Disposition: Home, Self-Care Discharge Diagnosis: Major Depressive Disorder recurrent episode moderate. Panic disorder with agarophobia Referrals: Clarissa Azar [facility] [Other] - 02/07/21 1:00 pm (Your next appointment with Clarissa for therapy is 02/07/21 at 1:00PM and then 02/14/21 at 2:00PM telehealth. ) OWEN Kamara [Other] - 02/14/21 Kelsie Danielson PA [Primary Care Provider] - 1 Week Discharge Medications: New trazodone 50 mg Tablet 50 mg PO BEDTIME PRN (Reason: Insomnia) 30 Days Qty: 30 RF: 0 polyvinyl alcohol [Artificial Tears (polyvin alc)] 1.4 % Drops 1 drp ophthalmic (eye) Q4H PRN (Reason: Dry Eyes) 30 Days Qty: 5 RF: 0 nortriptyline 25 mg Capsule 25 mg PO BEDTIME 30 Days Qty: 30 RF: 0 famotidine 20 mg Tablet 20 mg PO BEDTIME 30 Days Qty: 30 RF: 0 lorazepam 0.5 mg Tablet 0.5 mg PO Q8H PRN (Reason: Anxiety) 30 Days Qty: 90 RF: 0 docusate sodium 100 mg Capsule 100 mg PO BID 30 Days Qty: 60 RF: 0 omeprazole 20 mg Capsule,Delayed Release(Dr/Ec) 20 mg PO DAILY@0630 30 Days Qty: 30 RF: 0 gabapentin 100 mg Capsule 100 mg PO BID@0800,1500 30 Days Qty: 60 RF: 0 nystatin 100,000 unit/gram Powder 1 appl topical BID 30 Days Qty: 10 RF: 0 bupropion HCl 150 mg Tablet Extended Release 24 Hr 150 mg PO DAILY 30 Days Qty: 30 RF: 0 Continued nicotine 14 mg/24 hr Patch 24 Hour 1 patch TRANSDERMAL DAILY 30 Days Qty: 30 RF: 0 atorvastatin 10 mg Tablet 10 mg PO DAILY 30 Days Qty: 30 RF: 0 amlodipine 5 mg Tablet 5 mg PO DAILY 30 Days Qty: 30 RF: 0 lisinopril 40 mg Tablet 40 mg PO DAILY 30 Days Qty: 30 RF: 0 Discontinued bupropion HCl 100 mg Tablet Sustained-Release 12 Hr 100 mg PO BID RF: 0 Discharge Orders: Discharge Order (Routine); Ordered 01/31/21 Ordered By: Rolan Barrera Diet: advance to usual diet Activity on Discharge: As tolerated Stand Alone Forms: Patient Portal Discharge page Care Plan Goals: Care plan goals achieved in this hospitalization Health Concerns: Continue treatment with PCP Plan of Treatment: Continue treatment as an outpatient Assessment: Middle age female with a history of MDD and anxiety, admitted for exacerbation of dysphoria and agarophobia, improved with addition of TCA. No safety concerns
[2021-01-31] MEDS: Acetaminophen 325 MG TABLET 650 MG PO (12:12)
--- NOTE | 2021-01-31 13:22 | PC.NURSE ---
Pt. with bright affect and appropriately dressed and groomed. Endorses readiness for discharge. Reports mild anxiety relieved with PRN ativan. Discharge meds and appointments reviewed with pt. Verbalizes understanding of all instructions. Pt. escorted to front of hospital to meet taxi for transport home 1320.
== END 2021-01-31 13:20 | disposition home or self-care (01) | DRG 755 ==
PROVIDERS: Admitting Provider Psychiatry & Neurology Psychiatry; PCP Physician Assistant; Visit Provider Psychiatry & Neurology Psychiatry
DX: F40.01 Agoraphobia with panic disorder (principal); F17.210 Nicotine dependence, cigarettes, uncomplicated; F32.9 Major depressive disorder, single episode, unspecified; K21.9 Gastro-esophageal reflux disease without esophagitis; Z88.0 Allergy status to penicillin; Z88.2 Allergy status to sulfonamides; Z88.6 Allergy status to analgesic agent; Z79.899 Other long term (current) drug therapy

== ENCOUNTER 2022-04-27 19:32 | Inpatient (IN) | payer MEDICARE, OTHER, SELFPAY ==
--- OUTSIDE RECORDS SUMMARY | 2022-04-27 19:42 | XMS_ITS | Continuity of Care Document ---
:1955 Author Organization [facility] Address Unavailable , Care Team Providers Name Role Phone Kelsie Oliver Primary Care Physician Encounter [facility] [place] Date(s): 12/26/20 - 01/25/21 [facility] Attending Physician: Brenton Cabrera Admitting Physician: AdmtrBrenton Referring Physician: AdmtrBrenton Allergies, Adverse Reactions, Alerts Substance Reaction Severity Status doxycycline rash Active tetracycline red blotches Persistent Moderate Active penicillin rash Active gabapentin Active penicillins Active sulfa drugs Active Flexeril rash Active nonsteroidal anti-inflammatory agents [D]Wheezing Active Cymbalta Active Immunizations Given and Recorded Vaccine Date Status Refusal Reason SARS-CoV-2 (COVID-19) mRNA-1273 vaccine 06/12/20 Recorded SARS-CoV-2 (COVID-19) mRNA-1273 vaccine 05/15/20 Recorded tetanus/diphtheria/pertussis, acel(Tdap) 06/02/15 Given tetanus-diphtheria toxoids (Td)1 05/16/05 Given 1Admin Note: [facility] Medications Acetaminophen 1 tab with oxycodone as needed, 0 Refills, Maintenance, 09/15/20 14:06:00 EDT, Partial fill upon patient request if the prescription is for a schedule II opioid drug. Start Date: 09/15/20 Status: OrderedamLODIPine 5 mg oral tablet 5 mg, 1, tablet, By Mouth, Daily, # 90 tablet, Refills 1, Tot. Refills 1, Maintenance, 07/12/20 11:52:00 EDT, Route to Pharmacy Electronically, [facility], 160.2, cm, 06/30/20 13:45:00 EDT, Height Start Date: 07/12/20 Stop Date: 01/08/21 Status: OrderedAspirin 81, mg, By Mouth, Daily, 0, 0, 04/12/06 11:40:18, Print RADHA Number, [id number], Constant Indicator Start Date: 04/12/06 Status: Orderedatorvastatin 10 mg oral tablet See Instructions, TAKE ONE TABLET BY MOUTH ONCE DAILY, # 90 tablet, 0 Refills, [facility], 160, cm, 10/31/20 9:48:00 EDT, Height, 66, kg, 08/10/20 13:30:00 EDT, Dry Weight Start Date: 11/04/20 Status: OrderedBuSpar 10 mg oral tablet 7.5 mg, By Mouth, Daily, Refills 0, Maintenance, 12/31/20 14:09:00 EDT, Partial fill upon patient request if the prescription is for a schedule II opioid drug. Start Date: 12/31/20 Status: OrderedControlled Substance Agreement Controlled Substance Agreement, See Instructions, # 1 each, Refills 0, Tot. Refills 0, Maintenance, controlled substance agreement signed 10/16/18 Updated: 07/20/2020 pharmacy [facility] Geraldo dx: mechanical low back pain M54.5, 07/25/20 8:52:00 EDT, Compound Start Date: 07/25/20 Status: OrderedDocusate 0 Refills, Maintenance, 09/15/20 14:02:00 EDT, Partial fill upon patient request if the prescriptionis for a schedule II opioid drug. Start Date: 09/15/20 Status: OrderedFlector Patch 1.3% topical film, extended release 1 patch, Topically, 2 times a day, PRN for pain, # 30 patch, 0 Refills, Maintenance, 04/16/16 11:24:30, Patch Start Date: 04/16/16 Status: Orderedlisinopril 40 mg oral tablet 1 tablet = 40 mg, By Mouth, Daily, 1/2 tab daily, # 30 tablet, 1 Refills, Maintenance, 07/12/20 11:52:00 EDT, Tablet, [facility], 160.2, cm, 06/30/20 13:45:00 EDT, Height Start Date: 07/12/20 Stop Date: 09/29/20 Status: OrderedSenna By Mouth, 0 Refills, Maintenance, 09/15/20 14:02:00 EDT, Partial fill upon patient request if the prescription is for a schedule II opioid drug. Start Date: 09/15/20 Status: OrderedVitamin D3 By Mouth, 0 Refills, Maintenance, 04/29/17 12:56:00 Start Date: 04/29/17 Status: Ordered Problem List Condition Effective Dates Status Health Status Informant Overweight (BMI 25.0-29.9)(Confirmed) Active Bruit of left carotid Active artery(Confirmed) Chest pain(Confirmed)1 Active Cigarette smoker(Confirmed) 12/03/07 Active Decreased range of motion of Active neck(Confirmed) Decreased range of motion of lumbar Active spine(Confirmed) Disorder due to work-related activity 04/08/08 Active accident(Confirmed)2 Family history of alcohol use Active disorder: maternal grandmother, bother(Confirmed) Femoral/iliac bruit, right(Confirmed) Active Family history of depression: Active mother(Confirmed) Family history of substance use Active disorder: one brother age 28 of overdose (Confirmed) Myofascial pain syndrome, Active diffuse(Confirmed) Limitation due to Active disability(Confirmed)3, 4 Generalized anxiety Active disorder(Confirmed) History of compound ankle fracture Active 1988(Confirmed) Hyperlipidemia(Confirmed)5 Active Hypertension(Confirmed) Active Impaired glucose tolerance(Confirmed) Active Impingement syndrome of right Active shoulder(Confirmed) Low back pain(Confirmed)6, 7, 8, 9, 10 Active Macular degeneration(Confirmed) Active Major depressive disorder, single Active episode(Confirmed) Mechanical low back pain(Confirmed) Active Neck pain, mechanical(Confirmed) Active Osteopenia(Confirmed)11 Active Leg pain, bilateral(Confirmed) Active Risk assessment: SOAPP-R(Confirmed)12 Active Risk assessment: Adverse Childhood Active Experience(Confirmed)13 Heart murmur, systolic(Confirmed) Active Vitamin D deficiency(Confirmed) Active 1neg stress [id number] back pain DOI 04/08/[id number] Oswestry Disability Index: 58% (26/45; severe disability ); updated [place] Back Pain Disability Scale score: 71 both on initial Oswestry Disability Index: 62% ( crippled ) on 06/30/18; initial [place] Back Pain Scale: 81 on goal < 130 smoker, FHx6 trigger point injections-neuro Dr [id number] management per Dr Alexis endeavor- [id number] joint dysfunction status post [id number] 05/24 degenerative changes, L5 S1 facet joint inflam-[id number] score 0.6 hip, 5.7 [id number]: 15 on 3ACE score: 6 on 11/11/18 Social History Social History Type Response Smoking Status Cigars or pipes but not tad y within last 30 days entered on: 07/29/20 Sex Female
--- OUTSIDE RECORDS SUMMARY | 2022-04-27 19:42 | XMS_ITS | Continuity of Care Document ---
:1955 Author Organization [facility] Adult Address [address] [place] [address]- Care Team Providers Name Role Phone Kelsie Oliver Primary Care Physician Encounter [facility] [place] Date(s): 09/01/20 - 10/01/20 [facility] [address] [place] [address]- Allergies, Adverse Reactions, Alerts Substance Reaction Severity Status doxycycline rash Active tetracycline red blotches Persistent Moderate Active penicillin rash Active gabapentin Active penicillins Active sulfa drugs Active Flexeril rash Active nonsteroidal anti-inflammatory agents [D]Wheezing Active Immunizations Given and Recorded Vaccine Date [...] 07/12/20 11:52:00 EDT, Route to Pharmacy Electronically, [facility], 160.2, cm, 06/30/20 13:45:00 EDT, Height Start Date: 07/12/20 Stop Date: 01/08/21 Status: OrderedAspirin 81, mg, By Mouth, Daily, 0, 0, 04/12/06 11:40:18, Print RADHA Number, [id number], Constant Indicator Start Date: 04/12/06 Status: OrderedControlled Substance Agreement Controlled Substance Agreement, See Instructions, # 1 each, Refills 0, Tot. Refills 0, Maintenance, controlled substance agreement signed 10/16/18 Updated: 07/20/2020 pharmacy Jemal Chow dx: mechanical low back pain M54.5, 07/25/20 8:52:00 EDT, Compound Start Date: 07/25/20 Status: OrderedDocusate 0 Refills, Maintenance, 09/15/20 14:02:00 EDT, Partial fill upon patient request if the prescriptionis for a schedule II opioid drug. Start Date: 09/15/20 Status: Orderedfamotidine 40 mg oral tablet See Instructions, 1 tab po 1 or 2 times per day., # 56 tablet, 1 Refills, Maintenance, 06/29/20 8:06:00 EDT, [facility], 160.2, cm, 05/30/20 11:21:00 EDT, Height Start Date: 06/29/20 Status: OrderedFlector Patch 1.3% topical film, extended release 1 patch, Topically, 2 times a day, PRN for pain, # 30 patch, 0 Refills, Maintenance, 04/16/16 11:24:30, Patch Start Date: 04/16/16 Status: OrderedLipitor 10 mg oral tablet 1 tablet = 10 mg, By Mouth, Daily, # 90 tablet, 1 Refills, Maintenance, 04/09/20 9:33:00 EST, Tablet, [facility], 160.2, cm, 03/24/20 12:29:00 EST, Height Start Date: 04/09/20 Stop Date: 10/06/20 Status: Orderedlisinopril 40 mg oral tablet 1 tablet = 40 mg, By Mouth, Daily, 1/2 tab daily, # 30 tablet, 1 Refills, Maintenance, 07/12/20 11:52:00 EDT, Tablet, [facility], 160.2, cm, 06/30/20 13:45:00 EDT, Height Start Date: 07/12/20 Stop Date: 09/29/20 Status: OrderedLyrica 50 mg oral capsule 1 capsule = 50 mg, By Mouth, 3 times a day, # 90 capsule, 3 Refills, Maintenance, 09/13/20 17:40:00 EDT, Capsule, [facility], Partial fill upon patient request if the prescription is for a schedule II opioid drug., 160, cm, 08/30/20 11:02:00 E... Start Date: 09/13/20 Stop Date: 01/11/21 Status: OrderedMOM Liquid By Mouth, Daily at bedtime, 0 Refills, Maintenance, 12/10/19 9:14:00 EDT Start Date: 12/10/19 Status: Orderednicotine 14 mg/24 hr transdermal film, extended release 1 patch, Topically, Daily, # 30 patch, 1 Refills, Acute 11/18/20 8:00:00 EDT, 09/16/20 7:57:00 EDT, Patch, [facility], Partial fill upon patient request if the prescription is for a schedule IIopioid drug., 1 patch Topically Daily, 160, cm, 0... Start Date: 09/16/20 Stop Date: 11/18/20 Status: OrderedoxyCODONE 10 mg oral tablet 0.5 to 1 tablet, By Mouth, Every 6 hours, PRN pain r/t work injury, # 35 tablet, 0 Refills, Maintenance, 09/14/20 17:19:00 EDT, [facility], 160, cm, 08/30/20 11:02:00 EDT, Height, 66, kg, 08/10/20 13:30:00 EDT, Dry Weight Start Date: 09/14/20 Status: OrderedSenna By Mouth, 0 Refills, Maintenance, [...] Active Vitamin D deficiency(Confirmed) Active 1neg stress [id number] back pain DOI 04/08/[id number] Oswestry Disability Index: 58% (26/45; severe disability ); updated [place] Back Pain Disability Scale score: 71 both on initial Oswestry Disability Index: 62% ( crippled ) on 06/30/18; initial [place] Back Pain Scale: 81 on goal < 130 smoker, FHx6 trigger point injections-neuro Dr [id number] management per Dr Alexis adamant- [id number] joint dysfunction status post [id number] 05/24 degenerative changes, L5 S1 facet joint [id number] score 0.6 hip, 5.7 [id number]: 15 on 3ACE score: 6 on 11/11/18 Social History Social History Type Response Smoking Status Cigars or pipes but not tad y within last 30 days entered on: 07/29/20 Sex
--- OUTSIDE RECORDS SUMMARY | 2022-04-27 19:42 | XMS_ITS | Continuity of Care Document ---
:1955 Author Organization [facility] Address [address] [place] [address]- Care Team Providers Name Role Phone Kelsie Oliver Primary Care Phys[id number] Date([facility]/18/20 - 02/25/20 [facility] [address] [place] [address]- Attending Physician: Not on Staff, Attending MD Referring Physician: Kelsie Oliver Allergies, Adverse Reactions, Alerts Substance Reaction Severity Status doxycycline rash Active tetracycline red blotches Persistent Moderate Active penicillin rash Active penicillins Active sulfa drugs Active Flexeril rash Active nonsteroidal anti-inflammatory agents [D]Wheezing Active Immunizations Given and Recorded Vaccine Date Status Refusal Reason tetanus/diphtheria/pertussis, acel(Tdap) 06/02/15 Given tetanus-diphtheria toxoids (Td)1 05/16/05 Given 1[facility] Note: [facility] Medications acetaminophen 500 mg oral tablet 1 tablet = 500 mg, By Mouth, Every 6 hours, 0 Refills, Maintenance, 12/15/18 11:16:20 EDT Start Date: 12/15/18 Status: OrderedamLODIPine 5 mg oral tablet 5 mg, 1, tablet, By Mouth, Daily, # 90 tablet, Refills 1, Tot. Refills 1, Maintenance, 10/12/19 9:33:00 EDT, Route to Pharmacy Electronically, [facility], 160.2, cm, 10/02/19 13:49:00 EDT, Height Start Date: 10/12/19 Stop Date: 04/09/20 Status: OrderedAspirin 81, mg, By Mouth, Daily, 0, 0, 04/12/06 11:40:18, Print RADHA Number, [id number], Constant Indicator Start Date: 04/12/06 Status: OrderedColace Clear = 50 mg, By Mouth, 2 times a day, 0 Refills, Maintenance, 04/16/16 11:25:20 Start Date: 04/16/16 Status: OrderedControlled Substance Agreement Controlled Substance Agreement, See Instructions, # 1 each, Refills 0, Tot. Refills 0, Maintenance, controlled substance agreement signed 10/16/18, pharmacy [facility], dx: mechanical low back pain, 10/16/18 13:09:44 EDT, Compound Start Date: 10/16/18 Status: OrderedEffexor XR 75 mg oral capsule, extended release 75 mg, 1, capsule, By Mouth, Daily, # 90 capsule, Refills 3, Tot. Refills 3, Maintenance, 02/18/20 11:29:00 EST, Route to Pharmacy Electronically, [facility] #[facility], Partial fill upon patient request if the prescription is for a schedule II opioid . Start Date: 02/18/20 Status: OrderedFlector Patch 1.3% topical film, extended release 1 patch, Topically, 2 times a day, PRN for pain, # 30 patch, 0 Refills, Maintenance, 04/16/16 11:24:30, Patch Start Date: 04/16/16 Status: OrderedLipitor 10 mg oral tablet 1 tablet = 10 mg, By Mouth, Daily, # 90 tablet, 1 Refills, Maintenance, 10/12/19 9:33:00 EDT, Tablet, [facility] #[facility], 160.2, cm, 10/02/19 13:49:00 EDT, Height Start Date: 10/12/19 Stop Date: 04/09/20 Status: Orderedlisinopril 40 mg oral tablet 1 tablet = 40 mg, By Mouth, Daily, # 30 tablet, 5 Refills, Maintenance, 10/12/19 9:33:00 EDT, Tablet, [facility], 160.2, cm, 10/02/19 13:49:00 EDT, Height Start Date: 10/12/19 Status: Orderedmeclizine 12.5 mg oral tablet 1 to 2 tablet, By Mouth, 4 times a day, PRN as needed for nausea/dizziness, # 30 tablet, 0 Refills, Maintenance, 10/16/18 13:09:15 EDT Start Date: 10/16/18 Status: OrderedMOM Liquid By Mouth, Daily at bedtime, 0 Refills, Maintenance, 12/10/19 9:14:00 EDT Start Date: 12/10/19 Status: OrderedNarcan 4 mg/0.1 mL nasal spray = 4 mg, Naris, Left, Once, may repeat every 2 to 3 minutes until patient responds, # 2 each, 0 Refills, Soft Stop, 10/16/18 13:09:25 EDT Start Date: 10/16/18 Status: OrderedoxyCODONE 10 mg oral tablet See Instructions, 1 tablet By Mouth tid prn, may take 4th tablet as needed for severe pain., # 112 tablet, 0 Refills, Maintenance, 02/15/20 9:14:00 EST, [facility], Partial fill upon patient request., 160.2, cm, 01/22/20 12:42:00 EST, Height Start Date: 02/15/20 Status: OrderedSenna By Mouth, Daily, 0 Refills, Maintenance, 11/11/18 11:53:35 EDT Start Date: 11/11/18 Status: Orderedtopiramate 100 mg oral tablet 1 tablet = 100 mg, By Mouth, Daily at bedtime, # 28 tablet, 5 Refills, Maintenance, 08/25/19 8:09:00EDT, [facility], 160.5, cm, 07/07/19 9:17:00 EDT, Height Start Date: 08/25/19 Status: OrderedValium 5 mg oral tablet 5 mg, 1, tablet, By Mouth, 3 times a day, PRN, may take 4th tablet for severe spasm, # 112 tablet, Refills 2, Tot. Refills 2, Maintenance, muscle spasm, 12/14/19 13:00:00 EDT, Do Not Route Start Date: 12/14/19 Status: OrderedVitamin D3 By Mouth, 0 Refills, [...] syndrome, Active diffuse(Confirmed) Limitation due to Active disability(Confirmed)3 History of compound ankle fracture Active 1988(Confirmed) Hyperlipidemia(Confirmed)4 Active Hypertension(Confirmed) Active Impaired glucose tolerance(Confirmed) Active Impingement syndrome of right Active shoulder(Confirmed) Low back pain(Confirmed)5, 6, 7, 8, 9 Active Macular degeneration(Confirmed) Active Mechanical low back pain(Confirmed) Active Neck pain, mechanical(Confirmed) Active Osteopenia(Confirmed)10 Active Leg pain, bilateral(Confirmed) Active Risk assessment: SOAPP-R(Confirmed)11 Active Risk assessment: Adverse Childhood Active Experience(Confirmed)12 Heart murmur, systolic(Confirmed) Active Vitamin D deficiency(Confirmed) Active 1neg stress tsxp2Njs back pain DOI 04/08/200860104fxhuhsm Oswestry Disability Index: 62% ( crippled ) on 06/30/18; initial [place] Back Pain Scale: 81 on goal < 130 smoker, STl1avamgpk point injections-neuro Dr HollowayMrqazq2txpc management per Dr Vanesa [place]- mmrkh4UUXF JOLFP2VH joint dysfunction status post [id number] 05/24 degenerative changes, L5 S1 facet joint inflam-el08Zyyw score 0.6 hip, 5.7 [id number]-F: 15 on 2ACE score: 6 on 11/11/18 Vital Signs Most recent to oldest [Reference Range]: 1 Height 160.2 cm (02/18/20 10:29 AM) Social History Social History Type Response Smoking Status 10 or more cigarettes (1/2 p ack or more)/day in last 30 days; Type: Cigarettes; Other: 1ppd-1/2ppd; Started at age: 24; entered on: 09/22/18 Sex
--- OUTSIDE RECORDS SUMMARY | 2022-04-27 19:42 | XMS_ITS | Continuity of Care Document ---
:1955 Author Organization [facility] Address [address] [place] [address]- Care Team Providers Name Role Phone Kelsie Oliver Primary Care Physician Encounter [facility] Date(s): 10/13/21 - 11/12/21 [facility] [address] [place] [address]- Allergies, Adverse Reactions, Alerts Substance Reaction Severity Status doxycycline rash Active tetracycline red blotches Persistent Moderate Active penicillin rash Active sulfa drugs Active Flexeril rash Active nonsteroidal anti-inflammatory agents [D]Wheezing Active Cymbalta Active Immunizations Given and Recorded Vaccine Date Status Refusal Reason SARS-CoV-2 (COVID-19) mRNA-1273 vaccine 03/06/21 Recorded SARS-CoV-2 (COVID-19) mRNA-1273 vaccine 06/12/20 Recorded SARS-CoV-2 (COVID-19) mRNA-1273 vaccine 05/15/20 Recorded tetanus/diphtheria/pertussis, acel(Tdap) 06/02/15 Given tetanus-diphtheria toxoids (Td)1 05/16/05 Given 1[facility]: [facility] Medications apixaban 5 mg oral tablet 1 tablet = 5 mg, By Mouth, 2 times a day, # 60 tablet, 5 Refills, Maintenance, 09/17/21 16:39:00 EDT, Tablet, [facility], 160, cm, 09/15/21 4:30:00 EDT, Height, 74, kg, 09/13/21 20:36:00 EDT, Dry Weight Start Date: 09/17/21 Status: Orderedatorvastatin 10 mg oral tablet See Instructions, TAKE ONE TABLET BY MOUTH ONCE DAILY, # 90 tablet, 1 Refills, 07/24/21 14:35:00 EDT, [facility], 160, cm, 02/16/21 11:16:00 EST, Height, 64, kg, 01/19/21 11:44:00 EDT, Dry Weight Start Date: 07/24/21 Status: Orderedcyanocobalamin 1000 mcg oral tablet 1,000 mcg, 1, tablet, By Mouth, Daily, # 90 tablet, Refills 1, Tot. Refills 1, Maintenance, 09/18/2215:40:00 EDT, Route to Pharmacy Electronically, [facility] #[facility], 160, cm, 09/15/21 4:30:00 EDT, Height, 74, kg, 09/13/21 20:36:00 EDT, Dry Weight Start Date: 09/17/21 Status: Ordereddiltiazem 180 mg/24 hours oral capsule, extended release 180 mg, 1, capsule, By Mouth, Daily, # 30 capsule, Refills 5, Tot. Refills 5, Maintenance, 09/17/21 16:39:00 EDT, Route to Pharmacy Electronically, [facility] #66, 160, cm, 09/15/21 4:30:00 EDT, Height, 74, kg, 09/13/21 20:36:00 EDT, Dry Weight Start Date: 09/17/21 Status: OrderedFlector Patch 1.3% topical film, extended release 1 patch, Topically, 2 times a day, PRN for pain, # 30 patch, 0 Refills, Maintenance, 04/16/16 11:24:30, Patch Start Date: 04/16/16 Status: OrderedLORazepam 0.5 mg oral tablet 1 tablet = 0.5 mg, By Mouth, 2 times a day, PRN as needed for anxiety, 0 Refills, Maintenance, 09/13/21 5:05:00 EDT, Tablet, Partial fill upon patient request if the prescription is for a schedule II opioid drug. Start Date: 09/13/21 Status: OrderedMiraLax Powder 1 pack/packet = 17 Gm, By Mouth, Daily, PRN Constipation, 0 Refills, Maintenance, 09/15/21 15:50:00 EDT, Powder, Partial fill upon patient request if the prescription is for a schedule II opioid drug. Start Date: 09/15/21 Status: Orderednicotine 7 mg/24 hr transdermal film, extended release 24 hr = 7 mg, Topically, Daily, # 30 patch, 1 Refills, Maintenance, 09/17/21 16:40:00 EDT, Patch, [facility], 24 hr Topically Daily, 160, cm, 09/15/21 4:30:00 EDT, Height, 74, kg, 09/13/21 20:36:00 EDT, Dry Weight Start Date: 09/17/21 Status: Orderedsenna - oral liquid 10 mL, By Mouth, Daily at bedtime, # 60 mL, 0 Refills, Maintenance, 02/02/21 14:48:00 EST, Liquid, [facility], Partial fill upon patient request if the prescription is for a schedule II opioid drug., 160, cm, 01/19/21 11:44:00 EDT, Height, 64,... Start Date: 02/02/21 Status: OrderedVitamin D3 By Mouth, 0 Refills, Maintenance, 04/29/17 12:56:00 Start Date: 04/29/17 Status: Ordered Problem List Condition Effective Dates Status Health Status Informant Overweight (BMI 25.0-29.9)(Confirmed) Active Bruit of left carotid Active artery(Confirmed) Chest pain(Confirmed)1 Active Chronic low back pain(Confirmed) Active Decreased range of motion of Active neck(Confirmed) Decreased range of motion of lumbar Active spine(Confirmed) Femoral/iliac bruit, right(Confirmed) Active Myofascial pain syndrome, Active diffuse(Confirmed) Limitation due to Active disability(Confirmed)2, 3 Generalized anxiety Active disorder(Confirmed) Hyperlipidemia(Confirmed)4 Active Hypertension(Confirmed) Active Impingement syndrome of right Active shoulder(Confirmed) Macular degeneration(Confirmed) Active Osteopenia(Confirmed)5 Active Paroxysmal atrial flutter(Confirmed) Active 1neg stress [id number] Oswestry Disability Index: 58% (26/45; severe disability ); updated [place] Back Pain Disability Scale score: 71 both on 07/20/20 3initial Oswestry Disability Index: 62% ( crippled ) on 06/30/18; initial [place] Back Pain Scale: 81 on goal < 130 smoker, EWy8Wwac score 0.6 hip, 5.7 other Social History Social History Type Response Smoking Status 5-9 cigarettes (between 1/4 to 1/2 pack)/day in last 30 days; Interested in cessation: No; Patient wants NRT during admission Yes entered on: 09/13/21 Sex Female Care Team PersonnelName: Kelsie Oliver Address: [address] [place], [place] [address]
--- OUTSIDE RECORDS SUMMARY | 2022-04-27 19:42 | XMS_ITS | Continuity of Care Document ---
:1955 Author Organization [facility] Address Unavailable , Care Team Providers Name Role Phone Kelsie Oliver Primary Care Phys[id number] Date(s): 10/31/20 - 11/07/20 [facility] Attending Physician: Kelsie Oilver Referring Physician: Velasquez Danielson DO Allergies, Adverse Reactions, Alerts Substance Reaction Severity [...] tetanus-diphtheria toxoids (Td)1 05/16/05 Given 1Admin Note: [facility] Medications Acetaminophen 1 tab with oxycodone as needed, 0 Refills, Maintenance, 09/15/20 14:06:00 EDT, Partial fill upon patient request if the prescription is for a schedule II opioid drug. Start Date: 09/15/20 Status: OrderedamLODIPine 5 mg oral tablet 5 mg, 1, tablet, By Mouth, Daily, # 90 tablet, Refills 1, Tot. Refills 1, Maintenance, 07/12/20 11:52:00 EDT, Route to Pharmacy Electronically, [facility], 160.2, cm, 06/30/20 13:45:00 EDT, Height Start Date: 07/12/20 Stop Date: 01/08/21 Status: OrderedAspirin 81, mg, By Mouth, Daily, 0, 0, 04/12/06 11:40:18, Print RADHA Number, [id number], Constant Indicator Start Date: 04/12/06 Status: Orderedatorvastatin 10 mg oral tablet See Instructions, TAKE ONE TABLET BY MOUTH ONCE DAILY, # 90 tablet, 0 Refills, [facility], 160, cm, 10/31/20 9:48:00 EDT, Height, 66, kg, 08/10/20 13:30:00 EDT, Dry Weight Start Date: 11/04/20 Status: OrderedControlled Substance Agreement Controlled Substance Agreement, See Instructions, # 1 each, Refills 0, Tot. Refills 0, Maintenance, controlled substance agreement signed 10/16/18 Updated: 07/20/2020 pharmacy [facility] Geraldo dx: mechanical low back pain M54.5, [...] tablet, 1 Refills, Maintenance, 06/29/20 8:06:00 EDT, [facility], 160.2, cm, 05/30/20 11:21:00 EDT, [...] 1 Refills, Maintenance, 07/12/20 11:52:00 EDT, Tablet, [facility], 160.2, cm, 06/30/20 13:45:00 EDT, [...] 11/18/20 8:00:00 EDT, 09/16/20 7:57:00 EDT, Patch, [facility], Partial fill upon patient request if the prescription is for a schedule IIopioid drug., 1 patch Topically Daily, 160, cm, 0... Start Date: 09/16/20 Stop Date: 11/18/20 Status: OrderedoxyCODONE 10 mg oral tablet 0.5 to 1 tablet, By Mouth, Every 6 hours, PRN pain r/t work injury, # 35 tablet, 0 Refills, Maintenance, 09/14/20 17:19:00 EDT, [facility], 160, cm, 08/30/20 11:02:00 [...] Active Vitamin D deficiency(Confirmed) Active 1neg stress [id number] back pain DOI 04/08/200818468Vajfqvj Oswestry Disability Index: 58% (26/45; severe disability ); updated [place] Back Pain Disability Scale score: 71 both on initial Oswestry Disability Index: 62% ( crippled ) on 06/30/18; initial [place] Back Pain Scale: 81 on goal < 130 smoker, FHx6 trigger point injections-neuro Dr HollowayMdtniq6nrxz management per Dr Alexis ovalo- etnso3RIIG [id number] joint dysfunction status post [id number] 05/24 degenerative changes, L5 S1 facet joint inflam-qc85Qcxc score 0.6 hip, 5.7 [id number]-X: 15 on 3ACE score: 6 on 11/11/18 Vital Signs Most recent to oldest [Reference Range]: 1 Height 160 cm (10/31/20 9:48 AM) Social History Social History Type Response Smoking Status Cigars or pipes but not tad y within last 30 days entered on: 07/29/20 Sex Female
--- OUTSIDE RECORDS SUMMARY | 2022-04-27 19:42 | XMS_ITS | Continuity of Care Document ---
:1955 Author Organization [facility] Address [address] [place] [address]- Care Team Providers Name Role Phone Kelsie Oliver Primary Care Physician Encounter [facility] Date(s): 08/30/20 - 09/29/20 [facility] [address] [place] [address]- Attending Physician: Admtr, Brenton Admitting Physician: Admtr, Ar8 Referring Physician: Admtr, Ar8 Allergies, Adverse Reactions, Alerts Substance Reaction Severity [...] 07/12/20 11:52:00 EDT, Route to Pharmacy Electronically, [facility], 160.2, cm, 06/30/20 13:45:00 EDT, Height Start Date: 07/12/20 Stop Date: 01/08/21 Status: OrderedAspirin 81, mg, By Mouth, Daily, 0, 0, 04/12/06 11:40:18, Print RADHA Number, [id number], Constant Indicator Start Date: 04/12/06 Status: OrderedControlled [...] tablet, 1 Refills, Maintenance, 06/29/20 8:06:00 EDT, [facility], 160.2, cm, 05/30/20 11:21:00 [...] 1 Refills, Maintenance, 04/09/20 9:33:00 EST, Tablet, [facility], 160.2, cm, 03/24/20 12:29:00 EST, Height Start Date: 04/09/20 Stop Date: 10/06/20 Status: Orderedlisinopril 40 mg oral tablet 1 tablet = 40 mg, By Mouth, Daily, 1/2 tab daily, # 30 tablet, 1 Refills, Maintenance, 07/12/20 11:52:00 EDT, Tablet, [facility], 160.2, cm, 06/30/20 13:45:00 EDT, Height Start Date: 07/12/20 Stop Date: 09/29/20 Status: OrderedLyrica 50 mg oral capsule 1 capsule = 50 mg, By Mouth, 3 times a day, # 90 capsule, 3 Refills, Maintenance, 09/13/20 17:40:00 EDT, Capsule, [facility], Partial fill upon patient [...] 11/18/20 8:00:00 EDT, 09/16/20 7:57:00 EDT, Patch, [facility], Partial fill upon patient request if the prescription is for a schedule IIopioid drug., 1 patch Topically Daily, 160, cm, 0... Start Date: 09/16/20 Stop Date: 11/18/20 Status: OrderedoxyCODONE 10 mg oral tablet 0.5 to 1 tablet, By Mouth, Every 6 hours, PRN pain r/t work injury, # 35 tablet, 0 Refills, Maintenance, 09/14/20 17:19:00 EDT, [facility], 160, cm, 08/30/20 11:02:00 [...] Active Vitamin D deficiency(Confirmed) Active 1neg stress kffc1Gxt back pain DOI 04/08/200823389Wexylld Oswestry Disability Index: 58% (26/45; severe disability ); updated [place] Back Pain Disability Scale score: 71 both on initial Oswestry Disability Index: 62% ( crippled ) on 06/30/18; initial [place] Back Pain Scale: 81 on goal < 130 smoker, FHx6 trigger point injections-neuro Dr HollowayAretgs8qond management per Dr Alexis [place]- [id number] [id number] joint dysfunction status post [id number] 05/24 degenerative changes, L5 S1 facet joint inflam-ie52Uulz score 0.6 hip, 5.7 [id number]-K: 15 on 3ACE score: 6 on 11/11/18 Social History Social History Type Response Smoking Status Cigars or pipes but not tad y within last 30 days entered on: 07/29/20 Sex
--- OUTSIDE RECORDS SUMMARY | 2022-04-27 19:42 | XMS_ITS | Continuity of Care Document ---
:1955 Author Organization [facility] Address [address] [place] [address]- Care Team Providers Name Role Phone Kelsie Oliver Primary Care Physician Encounter [facility] Date(s): 01/18/21 - 01/19/[address] [address]- Discharge Disposition: Transfer to [facility] Attending Physician: Sebastien Hayden MD Admitting Physician: Sebastien Hayden MD Referring Physician: Not on Staff, Referring MD Allergies, Adverse Reactions, Alerts Substance Reaction Severity [...] tetanus-diphtheria toxoids (Td)1 05/16/05 Given 1Admin Note: [facility] Medications Acetaminophen 1 tab with oxycodone as needed, 0 Refills, Maintenance, 09/15/20 14:06:00 EDT, Partial fill upon patient request if the prescription is for a schedule II opioid drug. Start Date: 09/15/20 Status: OrderedamLODIPine 5 mg oral tablet 5 mg, 1, tablet, By Mouth, Daily, # 90 tablet, Refills 1, Tot. Refills 1, Maintenance, 07/12/20 11:52:00 EDT, Route to Pharmacy Electronically, [facility], 160.2, cm, 06/30/20 13:45:00 EDT, Height Start Date: 07/12/20 Stop Date: 01/08/21 Status: OrderedamLODIPine 5 mg oral tablet 5 mg, Tablet, By Mouth, 01/19/21 9:00:00 EDT Start Date: 01/19/21 Stop Date: 01/19/21 Status: CompletedAspirin 81, mg, By Mouth, Daily, 0, 0, 04/12/06 11:40:18, Print RADHA Number, [id number], Constant Indicator Start Date: 04/12/06 Status: Orderedatorvastatin 10 mg oral tablet See Instructions, TAKE ONE TABLET BY MOUTH ONCE DAILY, # 90 tablet, 0 Refills, [facility], 160, cm, 10/31/20 9:48:00 EDT, [...] 11:24:30, Patch Start Date: 04/16/16 Status: Orderedlisinopril 20 mg oral tablet 40 mg, Tablet, By Mouth, 01/19/21 9:00:00 EDT Start Date: 01/19/21 Stop Date: 01/19/21 Status: Completedlisinopril 40 mg oral tablet 1 tablet = 40 mg, By Mouth, Daily, 1/2 tab daily, # 30 tablet, 1 Refills, Maintenance, 07/12/20 11:52:00 EDT, Tablet, [facility], 160.2, cm, 06/30/20 13:45:00 EDT, [...] disorder(Confirmed) History of compound ankle fracture Active 1989(Confirmed) Hyperlipidemia(Confirmed)5 Active Hypertension(Confirmed) Active Impaired glucose tolerance(Confirmed) [...] Active Vitamin D deficiency(Confirmed) Active 1neg stress ftoc5Qar back pain DOI 04/08/200832223Sfbhcei Oswestry Disability Index: 58% (26/45; severe disability ); updated [place] Back Pain Disability Scale score: 71 both on initial Oswestry Disability Index: 62% ( crippled ) on 06/30/18; initial [place] Back Pain Scale: 81 on goal < 130 smoker, FHx6 trigger point injections-neuro Dr HollowayWwwwsf5bzfe management per Dr Alexis [place]- [id number] joint dysfunction status post [id number] 05/24 degenerative changes, L5 S1 facet joint inflam-xw96Fbey score 0.6 hip, 5.7 [id number]: 15 on 3ACE score: 6 on 11/11/18 Vital Signs Most recent to oldest 1 2 3 4 [Reference Range]: Height 160 cm 160 cm 160 cm (01/19/21 11:44 AM) (01/19/21 10:15 AM) (01/18/21 6:47 PM ) Weight 64 kg 64 kg 64 kg (01/19/21 11:44 AM) (01/19/21 10:15 AM) (01/18/21 6:47 PM ) Oxygen Saturation 98 % 96 % 98 % [94-100 %] (01/19/21 4:20 PM) (01/19/21 10:15 AM) (01/19/21 9:22 AM) Pulse Rate [55-90 bpm] 68 bpm 70 bpm 67 bpm (01/19/21 4:20 PM) (01/19/21 10:15 AM) (01/19/21 9:22 AM) Body Mass Index 25 25 25 [18.5-24.99] *H* *H* *H* (01/19/21 11:44 AM) (01/19/21 10:15 AM) (01/18/21 6:47 PM ) Blood Pressure 121/60 mm Hg 108/51 mm Hg 108/51 mm Hg 108/51 mm Hg [90-138/55-84 mm Hg] (01/19/21 4:20 PM) (01/19/21 10:15 AM) (01/19/21 10:13 AM) (01/19/21 10:13 AM) Respiratory Rate 16 br/min 16 br/min 18 br/min [16-30 br/min] (01/19/21 4:20 PM) (01/19/21 10:15 AM) (01/19/21 9:22 A M) Temperature 97.0 DegF 98.8 DegF 97.0 DegF [96.8-100.4 DegF] (01/19/21 4:20 PM) (01/19/21 10:15 AM) (01/19/21 9:2 2 AM) Mode of Delivery Room air Room air Room air (Oxygen) (01/19/21 4:20 PM) (01/19/21 10:15 AM) (01/19/21 9:22 AM) Blood pressure sites Arm, right Arm, right Arm, right (01/19/21 4:20 PM) (01/19/21 10:15 AM) (01/19/21 9:22 AM) Temperature Route Temporal Oral Temporal (01/19/21 4:20 PM) (01/19/21 10:15 AM) (01/19/21 9:22 AM) Dry Weight 64 kg 64 kg 64 kg (01/19/21 11:44 AM) (01/19/21 10:15 AM) (01/18/21 6:47 PM ) Weight Obtained Via Patient/family stated (01/18/21 11:41 AM) Dry Weight Obtained Patient/family stated Via (01/18/21 11:41 AM) Social History Social History Type Response Smoking Status Cigars or pipes but not tad y within last 30 days entered on: 07/29/20 Sex Female
--- OUTSIDE RECORDS SUMMARY | 2022-04-27 19:42 | XMS_ITS | Continuity of Care Document ---
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 (Discharge Diagnosis) - 01/02/22 Paroxysmal atrial flutter (Discharge Diagnosis) - 01/02/22 Overweight (BMI 25.0-29.9) (Discharge Diagnosis) - 01/02/22 Heavy smoker (more than 20 cigarettes per day) (Discharge Diagnosis) - 01/02/22 Chronic anticoagulation (Discharge Diagnosis) - 01/02/22 Subclavian artery stenosis, left (Discharge Diagnosis) - 01/02/22 Hyponatremia (Discharge Diagnosis) - 01/02/22 Attending Physician: Jacquie Sterling MD Referring Physician: Kelsie Oliver Allergies, Adverse [...] 5 Refills, Maintenance, 09/17/21 16:39:00 EDT, Tablet, [facility], 160, cm, 09/15/21 4:30:00 EDT, Height, 74, kg, 09/13/21 20:36:00 EDT, Dry Weight Start Date: 09/17/21 Status: Orderedatorvastatin 10 mg oral tablet See Instructions, TAKE ONE TABLET BY MOUTH ONCE DAILY, # 90 tablet, 1 Refills, 07/24/21 14:35:00 EDT, [facility], 160, cm, 02/16/21 11:16:00 EST, Height, 64, kg, 01/19/21 11:44:00 EDT, Dry Weight Start Date: 07/24/21 Status: Orderedcyanocobalamin 1000 mcg oral tablet 1,000 mcg, 1, tablet, By Mouth, Daily, # 90 tablet, Refills 1, Tot. Refills 1, Maintenance, 09/18/2215:40:00 EDT, Route to Pharmacy Electronically, [facility], 160, cm, 09/15/21 4:30:00 EDT, Height, 74, kg, 09/13/21 20:36:00 EDT, Dry Weight Start Date: 09/17/21 Status: Ordereddexamethasone 1 mg oral tablet 1 tablet = 1 mg, By Mouth, Once, Take at 11pm the night before your blood draw., # 1 tablet, 0 Refills, Soft Stop, 01/03/22 14:49:00 EDT, [facility], Partial fill upon patient request if the prescription is for a schedule II opioid drug., 160,... Start Date: 01/03/22 Status: Ordereddiltiazem 180 mg/24 hours oral capsule, extended release 180 mg, 1, capsule, By Mouth, Daily, # 30 capsule, Refills 5, Tot. Refills 5, Maintenance, 09/17/21 16:39:00 EDT, Route to Pharmacy Electronically, [facility], 160, cm, 09/15/21 4:30:00 EDT, [...] 1 Refills, Maintenance, 09/17/21 16:40:00 EDT, Patch, [facility] #[facility], 24 hr Topically Daily, 160, cm, 09/15/21 4:30:00 EDT, Height, 74, kg, 09/13/21 20:36:00 EDT, Dry Weight Start Date: 09/17/21 Status: OrderedPEG-3350 with Electrolytes (Eqv-GoLYTELY) oral powder for reconstitution See Instructions, 1 glass every 15-30 minutes until finished, # 4,000 mL, 0 Refills, Maintenance, 01/08/22 13:55:00 EDT, [facility] #[facility], Partial fill upon patient request if the prescription is fora schedule II opioid drug., 1 glass every 15-30 m... Start Date: 01/08/22 Status: OrderedSenna 8.8 mg/5 mL oral syrup 10 mL, By Mouth, Daily at bedtime, # 60 mL, 1 Refills, Maintenance, 12/22/21 13:12:00 EDT, [facility], 6, 10 mL By Mouth Daily at bedtime, 160, cm, 12/01/21 14:42:00 EDT, Height, 74, kg, 09/13/21 20:36:00 EDT, Dry Weight Start Date: 12/22/21 Status: OrderedVitamin D3 By Mouth, 0 Refills, Maintenance, 04/29/17 12:56:00 Start Date: 04/29/17 Status: Ordered Problem List Condition Confirmation Course Effective Dates Status Health I nformant Status Overweight (BMI Confirmed Active 25.0-29.9) Bruit of left carotid Confirmed Active artery Chest pain1 Confirmed Active Chronic low back pain Confirmed Active Decreased range of Confirmed Active motion of neck Decreased range of Confirmed Active motion of lumbar spine Displacement 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 Active lumbar intervertebral disc without myelopathy Femoral/iliac bruit, Confirmed Active right Myofascial pain Confirmed Active syndrome, diffuse Limitation due to Confirmed Active disability2, 3 Generalized anxiety Confirmed Active disorder GERD - Confirmed Active Gastro-esophageal reflux disease Heavy smoker (more Confirmed Active than 20 cigarettes per day) Hyperlipidemia4 Confirmed Active Hypertension Confirmed Active Hyponatremia Confirmed 05/23/12 Active Impingement syndrome Confirmed Active of right shoulder Impingement syndrome Confirmed 09/26/21 Active of shoulder region Chronic Confirmed Active anticoagulation Lumbosacral Confirmed 09/26/21 Active radiculitis Lumbosacral Confirmed 09/26/21 Active spondylosis without myelopathy Macular degeneration Confirmed Active Nodule of upper lobe Confirmed 12/20/21 Active of left lung Osteopenia5 Confirmed Active Paroxysmal atrial Confirmed Active flutter Subclavian artery Confirmed Active stenosis, left 1neg stress [id number] Oswestry Disability Index: 58% (26/45; severe disability ); updated [place] Back Pain Disability Scale score: 71 both on 07/20/20 3initial Oswestry Disability Index: 62% ( crippled ) on 06/30/18; initial [place] Back Pain Scale: 81 on goal < 130 smoker, [id number] score 0.6 hip, 5.7 other Diagnosis Diagnosis Type Effective Dates Health Clinical Infor mant Status Service Nodule of upper lobe Discharge 01/02/22 of left lung Diagnosis Paroxysmal atrial Discharge 01/02/22 flutter Diagnosis Overweight (BMI Discharge 01/02/22 25.0-29.9) Diagnosis Heavy smoker (more Discharge 01/02/22 than 20 cigarettes Diagnosis per day) Chronic Discharge 01/02/22 anticoagulation Diagnosis Subclavian artery Discharge 01/02/22 stenosis, left Diagnosis Hyponatremia Discharge 01/02/22 Diagnosis Vital Signs Most recent to oldest [Reference Range]: 1 Height 160 cm (01/02/22 8:56 AM) Weight 72.6 kg (01/02/22 8:56 AM) Oxygen Saturation [94-100 %] 99 % (01/02/22 8:56 AM) Pulse Rate [55-90 bpm] 99 bpm *H* (01/02/22 8:56 AM) Body Mass Index [18.5-24.99 kg/m2] 28.36 kg/m2 *H* (01/02/22 8:56 AM) Blood Pressure [90-138/55-84 mm Hg] 126/68 mm Hg (01/02/22 8:56 AM) Temperature [96.8-100.4 DegF] 96.9 DegF (01/02/22 8:56 AM) Mode of Delivery (Oxygen) Room air (01/02/22 8:56 AM) Blood pressure sites Arm, right (01/02/22 8:56 AM) Temperature Route Temporal (01/02/22 8:56 AM) Weight Obtained Via Standing scale (01/02/22 8:56 AM) Social History Social History Type Response Smoking Status 5-9 cigarettes (between 1/4 to 1/2 pack)/day in last 30 days; Interested in cessation: Yes; Type: Cigarettes; Other: 5 CIG/D X 40 YEARS; Tobacco use times per day: 1/2-1 ppd x 40 years; currently 5/day; Number of years: 40; Total pack years: 30; entered on: 01/02/22 Sex Female Patient Care team information PersonnelName: Kelsie Oliver Address: Address: [address] [place], [place] [address]
--- OUTSIDE RECORDS SUMMARY | 2022-04-27 19:42 | XMS_ITS | Continuity of Care Document ---
:1955 Author Organization [facility] Address [address] [place] [address]- Care Team Providers Name Role Phone Kelsie Oliver Primary Care Physician Encounter [facility] [place] Date(s): 11/09/21 - 03/09/22 [facility] [address] [place], [place] [address] Attending Physician: Caleb Abrams MD Admitting Physician: Caleb Abrams MD Allergies, Adverse Reactions, Alerts Substance Reaction Severity Status doxycycline rash Active tetracycline red blotches Persistent Moderate Active penicillin rash Active sulfa drugs Active Flexeril rash Active nonsteroidal anti-inflammatory agents [D]Wheezing Active Adhesive Bandage Active Cymbalta Active Immunizations Given and Recorded Vaccine Date Status Refusal Reason influenza virus vaccine, inactivated 03/06/22 Given [id number] bivalent booster vax 12/13/21 Recorde d SARS-CoV-2 (COVID-19) mRNA-1273 vaccine 03/06/21 Recorded SARS-CoV-2 (COVID-19) mRNA-1273 vaccine 06/12/20 Recorded SARS-CoV-2 (COVID-19) mRNA-1273 vaccine 05/15/20 Recorded tetanus/diphtheria/pertussis, acel(Tdap) 06/02/15 Given tetanus-diphtheria toxoids (Td)1 05/16/05 Given 1Admin Note: [facility] Medications Acetaminophen = 975 mg, By Mouth, 3 times a day, PRN Pain , Moderate, 0 Refills, Maintenance, 01/31/22 14:33:00 EST, Partial fill upon patient request if the prescription is for a schedule II opioid drug. Start Date: 01/31/22 Status: Orderedatorvastatin 10 mg oral tablet See Instructions, TAKE ONE TABLET BY MOUTH ONCE DAILY, # 90 Unknown, 1 Refills, Maintenance, 02/09/22 18:57:00 EST, [facility], 163, cm, 01/31/22 14:28:00 EST, Height, 72.6, kg, 01/24/22 13:07:00 EST, Dry Weight Start Date: 02/09/22 Status: Ordereddiltiazem 180 mg/24 hours oral capsule, extended release 180 mg, 1, capsule, By Mouth, Daily, # 30 capsule, Refills 5, Tot. Refills 5, Maintenance, 02/20/22 15:57:00 EST, Route to Pharmacy Electronically, [facility], 163, cm, 01/31/22 14:28:00 EST, Height, 72.6, kg, 01/24/22 13:07:00 EST, Dry Weight Start Date: 02/20/22 Status: OrderedEliquis 5 mg oral tablet 1 tablet = 5 mg, By Mouth, 2 times a day, # 60 tablet, 5 Refills, Maintenance, 03/05/22 23:57:00 EST, Tablet, Partial fill upon patient request if the prescription is for a schedule II opioid drug. Start Date: 03/05/22 Status: OrderedEnoxaparin 0.8 mL = 80 mg, Subcutaneous Injection, Every 12 hours, 0 Refills, Maintenance, 03/05/22 17:07:00 EST, Injection, Partial fill upon patient request if the prescription is for a schedule II opioid drug. Start Date: 03/05/22 Status: Orderedgabapentin 100 mg oral capsule 100 mg, 1, capsule, By Mouth, 3 times a day, Refills 0, Maintenance, 03/05/22 17:15:00 EST, Partial fill upon patient request if the prescription is for a schedule II opioid drug. Start Date: 03/05/22 Status: Orderedlidocaine 5% topical film Topically, Daily, 0 Refills, Maintenance, 03/05/22 16:21:00 EST, Patch, Partial fill upon patient request if the prescription is for a schedule II opioid drug. Start Date: 03/05/22 Status: OrderedLORazepam 0.5 mg oral tablet 1 tablet = 0.5 mg, By Mouth, 2 times a day, PRN as needed for anxiety, 0 Refills, Maintenance, 09/13/21 5:05:00 EDT, Tablet, Partial fill upon patient request if the prescription is for a schedule II opioid drug. Start Date: 09/13/21 Status: OrderedMiraLax Powder 1 pack/packet = 17 Gm, By Mouth, Daily, 0 Refills, Maintenance, 09/15/21 15:50:00 EDT, Powder, Partial fill upon patient request if the prescription is for a schedule II opioid drug. Start Date: 09/15/21 Status: Orderedmirtazapine 7.5 mg oral tablet 1 tablet = 7.5 mg, By Mouth, Daily at bedtime, # 30 tablet, 0 Refills, Maintenance, 03/06/22 0:21:00EST, Partial fill upon patient request if the prescription is for a schedule II opioid drug. Start Date: 03/06/22 Status: OrderedMorPHINE Inj = 2 mg, IV Push Slowly, Every 4 hours, PRN Pain , Severe, 0 Refills, Maintenance, 03/05/22 17:07:00 EST, Injection, Partial fill upon patient request if the prescription is for a schedule II opioid drug. Start Date: 03/05/22 Status: OrderedoxyCODONE 5 mg oral tablet 5 mg, 1, tablet, By Mouth, Every 6 hours, PRN, Refills 0, Tot. Refills 0, Maintenance, Pain , Moderate, 03/05/22 16:21:00 EST, Partial fill upon patient request if the prescription is for a schedule IIopioid drug. Start Date: 03/05/22 Status: OrderedSenna 8.8 mg/5 mL oral syrup 10 mL, By Mouth, Daily at bedtime, # 900 mL, 3 Refills, Maintenance, 01/18/22 13:14:00 EDT, [facility], 10 mL By Mouth Daily at bedtime, 163, cm, 01/16/22 7:20:00 EDT, Height, 73, kg, 01/16/22 7:20:00 EDT, Dry Weight Start Date: 01/18/22 Status: OrderedZofran Inj = 4 mg, IV Push, Every 6 hours, PRN Nausea & Vomiting, 0 Refills, Maintenance, 03/05/22 17:07:00EST, Injection, Partial fill upon patient request if the prescription is for a schedule II opioid drug. Start Date: 03/05/22 Status: Ordered Problem List Condition Confirmation Course [...] spondylosis without myelopathy Macular degeneration Confirmed Active Osteopenia5 Confirmed Active Paroxysmal atrial Confirmed Active flutter Primary Confirmed 01/19/22 Active adenocarcinoma of upper lobe of left lung ([id number]) Subclavian artery Confirmed Active stenosis, left Tubular adenoma of Confirmed Active colon 1neg stress [id number] Oswestry Disability Index: 58% (26/45; severe disability ); updated [place] Back Pain Disability Scale score: 71 both on 07/20/20 3initial Oswestry Disability Index: 62% ( crippled ) on 06/30/18; initial [place] Back Pain Scale: 81 on goal < 130 smoker, [id number] score 0.6 hip, 5.7 other Social History Social History Type Response Smoking Status Use: 4 or less cigarettes(le ss than 1/4 pack)/day in last 30 days; Former smoker, quit more than 30 days ago; Other: QUIT 2 WEEKS AGO (01/17/2022); PRIOR TO THAT WAS ONLY 2-3 CIG/D X AGE 22; entered on: 01/31/22 Sex Female Patient Care team information Care Team PersonnelName: Kelsie Oliver Position: [facility] PCO Associate Professional Member Role: PCP Address: Address: [address] [place], [place] [address] Name: Manas Landaverde RN Position: S RN Member Role: Primary Care Nurse Name: Kyra Byrne RN Position: [facility] RN Member Role: Primary Care Nurse Name: Ryan Blackmon DO Position: [facility] Physician -Physician Practices Member Role: Lifetime Consulting Physician Address: Address: [address] [place] [address]- Name: Karen Stearns RN Position: [facility] RN Member Role: Primary Care Nurse Name: Vandana Hu RN Position: [facility] RN Member Role: Primary Care Nurse Care Team Related PersonsName: SILVER ROSSI Name: LASHAY MORLEY Address: [address] [address]
--- OUTSIDE RECORDS SUMMARY | 2022-04-27 19:42 | XMS_ITS | Continuity of Care Document ---
:1955 Author Organization [facility] Address [address] [place] [address]- Care Team Providers Name Role Phone Kelsie Oliver Primary Care Physician Encounter [facility] [place] Date(s): 09/13/20 - 10/13/20 [facility] [address] [place], [place] [address] Allergies, Adverse Reactions, Alerts Substance Reaction Severity [...] 07/12/20 11:52:00 EDT, Route to Pharmacy Electronically, [facility], 160.2, cm, 06/30/20 13:45:00 EDT, Height Start Date: 07/12/20 Stop Date: 01/08/21 Status: OrderedAspirin 81, mg, By Mouth, Daily, 0, 0, 04/12/06 11:40:18, Print RADHA Number, [id number], Constant Indicator Start Date: 04/12/06 Status: OrderedControlled [...] 3 Refills, Maintenance, 09/13/20 17:40:00 EDT, Capsule, [facility], Partial fill upon patient [...] 11/18/20 8:00:00 EDT, 09/16/20 7:57:00 EDT, Patch, [facility], Partial fill upon patient request if the prescription is for a schedule IIopioid drug., 1 patch Topically Daily, 160, cm, 0... Start Date: 09/16/20 Stop Date: 11/18/20 Status: OrderedoxyCODONE 10 mg oral tablet 0.5 to 1 tablet, By Mouth, Every 6 hours, PRN pain r/t work injury, # 35 tablet, 0 Refills, Maintenance, 09/14/20 17:19:00 EDT, [facility], 160, cm, 08/30/20 [...] Active Vitamin D deficiency(Confirmed) Active 1neg stress [id number] back pain DOI 04/08/200865244Pontqet Oswestry Disability Index: 58% (26/45; severe disability ); updated [place] Back Pain Disability Scale score: 71 both on initial Oswestry Disability Index: 62% ( crippled ) on 06/30/18; initial [place] Back Pain Scale: 81 on goal < 130 smoker, FHx6 trigger point injections-neuro Dr HollowayZjtejb3lpum management per Dr Alexis [place]- [id number] joint dysfunction status post [id number] 05/24 degenerative changes, L5 S1 facet joint inflam-[id number] score 0.6 hip, 5.7 [id number]: 15 on 3ACE score: 6 on 11/11/18 Social History Social History Type Response Smoking Status Cigars or pipes but not tad y within last 30 days entered on: 07/29/20 Sex
--- OUTSIDE RECORDS SUMMARY | 2022-04-27 19:42 | XMS_ITS | Continuity of Care Document ---
:1955 Author Organization [facility] Address [address] [place] [address]- Care Team Providers Name Role Phone Kelsie Oliver Primary Care Physician Encounter [facility] [place] Date(s): 03/09/19 - 05/09/19 [facility] [address] [place] [address] [facility] Attending Physician: Tejas Abreu Jr., MD Admitting Physician: Tejas Abreu Jr., MD Referring Physician: Kelsie Oliver Allergies, Adverse [...] By Mouth, Daily, # 90 tablet, Refills 3, Tot. Refills 3, Maintenance, 09/22/18 14:57:41 EDT, Route to Pharmacy Electronically, [id number], [facility] Start Date: 09/22/18 Stop Date: 09/17/19 Status: OrderedAspirin 81, mg, By Mouth, Daily, 0, 0, 04/12/06 11:40:18, Print RDAHA Number, [id number], Constant Indicator Start Date: 04/12/06 Status: OrderedAzithromycin 5 Day Dose Pack 250 mg oral tablet 1 pack/packet, By Mouth, Once, # 6 tablet, 0 Refills, Soft Stop, 03/27/19 14:02:00 EST, Tablet, [facility], 160.5, cm, 03/27/19 13:36:00 EST, Height Start Date: 03/27/19 Status: OrderedClaritin 10 mg oral tablet 10 mg, 1, tablet, By Mouth, Daily, # 90 tablet, Refills 3, Tot. Refills 3, Maintenance, 03/27/19 14:00:00 EST, Route to Pharmacy Electronically, [facility], 160.5, cm, 03/27/19 13:36:00 EST, Height Start Date: 03/27/19 Status: OrderedColace Clear = 50 mg, By Mouth, 2 times a day, 0 Refills, Maintenance, 04/16/16 11:25:20 Start Date: 04/16/16 Status: OrderedControlled Substance Agreement Controlled Substance Agreement, See Instructions, # 1 each, Refills 0, Tot. Refills 0, Maintenance, controlled substance agreement signed 10/16/18, pharmacy [facility], dx: mechanical low back pain, 10/16/18 13:09:44 EDT, Compound Start Date: 10/16/18 Status: OrderedFlector Patch 1.3% topical film, extended release 1 patch, Topically, 2 times a day, PRN for pain, # 30 patch, 0 Refills, Maintenance, 04/16/16 11:24:30, Patch Start Date: 04/16/16 Status: OrderedLipitor 10 mg oral tablet 1 tablet = 10 mg, By Mouth, Daily, # 90 tablet, 3 Refills, Maintenance, Tablet, Route to Pharmacy Electronically, [id number], [facility] Start Date: 09/22/18 Stop Date: 09/17/19 Status: Orderedlisinopril 40 mg oral tablet 1 tablet = 40 mg, By Mouth, Daily, # 30 tablet, 5 Refills, Maintenance, 05/05/19 11:40:00 EST, Tablet, [facility], 160.5, cm, 03/27/19 13:36:00 EST, Height Start Date: 05/05/19 Status: Orderedmeclizine 12.5 mg oral tablet 1 to 2 tablet, By Mouth, 4 times a day, PRN as needed for nausea/dizziness, # 30 tablet, 0 Refills, Maintenance, 10/16/18 13:09:15 EDT Start Date: 10/16/18 Status: OrderedNarcan 4 mg/0.1 mL nasal spray [...] pain., # 112 tablet, 0 Refills, Maintenance, 05/06/19 17:59:00 EST, [facility], Partial fill upon patient request., 160.5, cm, 05/06/19 11:18:00 EST, Height Start Date: 05/06/19 Status: OrderedSenna By Mouth, Daily, 0 Refills, Maintenance, 11/11/18 11:53:35 EDT Start Date: 11/11/18 Status: Orderedtopiramate 100 mg oral tablet 1 tablet = 100 mg, By Mouth, Daily at bedtime, # 28 tablet, 2 Refills, Maintenance, 02/17/19 17:15:58 EST, 160.5, cm, 02/11/19 11:38:52 EST, Height Start Date: 02/17/19 Status: OrderedValium 5 mg oral tablet 5 mg, 1, tablet, By Mouth, 3 times a day, PRN, may take 4th tablet for severe spasm, # 112 tablet, Refills 2, Tot. Refills 2, Maintenance, muscle spasm, 04/09/19 9:15:00 EST, Route to Pharmacy Electronically, [facility], 160.5, cm, 03/27/19 13... Start Date: 04/09/19 Status: OrderedVitamin D3 By Mouth, 0 Refills, [...] Active Osteopenia(Confirmed)10 Active Leg pain, bilateral(Confirmed) Active Drug or alcohol risk Active assessment(Confirmed)11 Risk assessment: Adverse Childhood Active Experience(Confirmed)12 Heart murmur, systolic(Confirmed) Active Vitamin D deficiency(Confirmed) Active 1neg stress mulq5Fdt back pain DOI 04/08/200805223znnufve Oswestry Disability Index: 62% ( crippled ) on 06/30/18; initial [place] Back Pain Scale: 81 on goal < 130 smoker, [id number] point injections-neuro Dr HollowayXvnmru9jufn management per Dr Alexis duncan- [id number] joint dysfunction status post [id number] 05/24 degenerative changes, L5 S1 facet joint inflam-ux98Mhmu score 0.6 hip, 5.7 [id number]: 15 on 2ACE score: 6 on 11/11/18 Social History Social History Type Response Smoking Status 10 or more cigarettes (1/2 p ack or more)/day in last 30 days; Type: Cigarettes; Other: 1ppd-1/2ppd; Started at age: 24; entered on: 09/22/18 Sex
--- OUTSIDE RECORDS SUMMARY | 2022-04-27 19:42 | XMS_ITS | Continuity of Care Document ---
:1955 Author Organization [facility] Address [address] [place] [address]- Care Team Providers Name Role Phone Kelsie Oliver Primary Care Physician Encounter [facility] Date(s): 09/15/21 - 09/17/[address] [id number] Discharge Disposition: A-D/C Home Attending Physician: Cleo Chawla MD Admitting Physician: Bambi SHARPE, Fatemeh Referring Physician: Fab Snyder MD Allergies, Adverse Reactions, Alerts Substance Reaction [...] 5 Refills, Maintenance, 09/17/21 16:39:00 EDT, Tablet, [facility], 160, cm, 09/15/21 4:30:00 EDT, Height, 74, kg, 09/13/21 20:36:00 EDT, Dry Weight Start Date: 09/17/21 Status: Orderedatorvastatin 10 mg oral tablet See Instructions, TAKE ONE TABLET BY MOUTH ONCE DAILY, # 90 tablet, 1 Refills, 07/24/21 14:35:00 EDT, [facility], 160, cm, 12/02/21 11:16:00 EST, Height, 64, kg, 01/19/21 11:44:00 [...] hours oral capsule, extended release 180 mg, CD Capsule, By Mouth, 09/16/21 14:50:00 EDT Start Date: 09/16/21 Stop Date: 09/16/21 Status: Completeddiltiazem 180 mg/24 hours oral capsule, extended release 180 mg, CD Capsule, By Mouth, 09/17/21 9:00:00 EDT Start Date: 09/17/21 Stop Date: 09/17/21 Status: Completeddiltiazem 180 mg/24 hours oral capsule, extended release [...] II opioid drug. Start Date: 09/13/21 Status: OrderedMiconazole 3 vaginal suppository 1 supp = 200 mg, Vaginally, Daily at bedtime, for 3 days, # 3 supp, 0 Refills, Acute 09/18/21 15:50:00 EDT, 09/15/21 15:50:00 EDT, [facility], Partial fill upon patient request if the prescription is for a schedule II opioid drug., 160, cm, 07... Start Date: 09/15/21 Stop Date: 09/18/21 Status: OrderedMiraLax Powder 1 pack/packet = 17 [...] 1 Refills, Maintenance, 09/17/21 16:40:00 EDT, Patch, [facility], 24 hr Topically Daily, 160, cm, 09/15/21 4:30:00 EDT, Height, 74, kg, 09/13/21 20:36:00 EDT, Dry Weight Start Date: 09/17/21 Status: Orderednystatin topical [id number] u/gm powder 1 application, Topically, 2 times a day, # 30 Gm, 0 Refills, Acute 09/21/21 15:54:00 EDT, 09/07/21 15:54:00 EDT, Powder, [facility], Partial fill upon patient request if the prescription is fora schedule II opioid drug., 1 application Topical... Start Date: 09/07/21 Stop Date: 09/21/21 Status: Orderedsenna - oral liquid 10 mL, By Mouth, Daily at bedtime, # 60 mL, 0 Refills, Maintenance, 02/02/21 14:48:00 EST, Liquid, [facility], Partial fill upon patient [...] Active Paroxysmal atrial flutter(Confirmed) Active 1neg stress [id number] Oswestry Disability Index: 58% (26/45; severe disability ); updated [place] Back Pain Disability Scale score: 71 both on 07/20/20 3initial Oswestry Disability Index: 62% ( crippled ) on 06/30/18; initial [place] Back Pain Scale: 81 on goal < 130 smoker, FGp2Bgea score 0.6 hip, 5.7 other Results Radiology Reports Exam Date Time Procedure Performing Provider Status 09/13/21 7:06 AM Shoulder Min 2 Views Left Jacquie Dowd; Auth (Verified) Notes:(Shoulder Min 2 Views Left) Reason For Exam: TraumaRESULT: Shoulder Min 2 Views Left Shoulder Min 2 Views Left, 3 views Hx of Present Illness: Pt was brought in from home by EMS for a fall. Per pt she felt dizzy and vision tunneled. EMS found pt in bathroom cold, clammy, and pale. Per pt she was incontinent of stool andvomited x 1. bp was found to be 70 40.; Reason: Trauma; Clinical Question(s): Fracture COMPARISON: None. FINDINGS: There is focal irregularity in the humeral head. The glenoid is obscured by overlying EKG electrode. Mild degenerative changes of the AC joint. The portion of the clavicle included on the exam is normal. No calcification of the rotator cuff. IMPRESSION: 1. Focal irregularity at the humeral head could represent a Hill-Sachs deformity and could be acute or chronic. 2. Glenoid is obscured by overlying EKG electrode. A repeat radiograph could be performed for bettervisualization. WSN: [id number] Ordering Physician: Martha García Dictated By: Angel Billy MD Dictated Date/Time: 09/13/21 10:00 a Reviewed By: Angel Billy MD Signed By: Angel Billy MD Signed Date/Time: 09/13/21 10:00 am Transcribed By: SHAHNAZ Transcribed Date/Time: 09/13/21 9:51 am Exam Date Time Procedure Performing Provider Status 09/13/21 7:06 AM Chest 2 Views Frontal and Lat Jacquie Dowd (Verified) Notes:(Chest 2 Views Frontal and Lat) Reason For Exam: Other:RESULT: Chest 2 Views Frontal and Lat Chest 2 Views Frontal and Lat Hx of Present Illness: Pt was brought in from home by EMS for a fall. Per pt she felt dizzy and vision tunneled. EMS found pt in bathroom cold, clammy, and pale. Per pt she was incontinent of stool andvomited x 1. Bp was found to be 70 40.; Reason: Other:; Clinical Question(s): Other: COMPARISON: 07/05/2020. FINDINGS: LINES AND TUBES: None. LUNGS AND PLEURA: Clear lungs. Normal pulmonary vascularity. No pleural effusion. No pneumothorax. HEART, MEDIASTINUM AND KEYANNA: Heart is normal in size. Aorta is tortuous and partially calcified. BONES AND SOFT TISSUES: No acute abnormality; however, image quality of the lateral view is suboptimal due to over penetration of x-ray beams and there appears to be wedging of the lower thoracic vertebral bodies. IMPRESSION: 1. No acute cardiopulmonary abnormality. 2. Apparent wedging of the lower thoracic vertebral bodies could be artifactual. If patient has history of trauma, thoracic spine should be assessed for point tenderness. WSN: [id number] Ordering Physician: Martha García Dictated By: Angel Billy MD Dictated Date/Time: 09/13/21 9:51 am Reviewed By: Angel Billy MD Signed By: Angel Billy MD Signed Date/Time: 09/13/21 9:51 am Transcribed By: SHAHNAZ Transcribed Date/Time: 09/13/21 9:46 am Vital Signs Most recent to oldest 1 2 3 [Reference Range]: Height 160 cm 160 cm 160 cm (09/15/21 4:30 AM) (09/14/21 11:07 PM) (09/14/21 8:5 7 PM) Weight 74 kg 74 kg 74 kg (09/13/21 8:24 PM) (09/13/21 5:00 AM) (09/13/21 4:5 7 AM) Oxygen Saturation [94-100 %] 100 % 96 % 95 % (09/17/21 12:00 PM) (09/17/21 4:00 AM) (09/17/21 2:00 AM) Pulse Rate [55-90 bpm] 76 bpm 70 bpm 77 bpm (09/17/21 8:31 AM) (09/16/21 2:56 PM) (09/14/21 12:00 AM) Body Mass Index [18.5-24.99] 28.91 28.91 *H* *H* (09/13/21 8:24 PM) (09/13/21 4:57 AM) Blood Pressure [90-138/55-84 130/59 mm Hg 120/60 mm Hg 106 /38 mm Hg mm Hg] (09/17/21 12:00 PM) (09/17/21 8:31 AM) (09/17/21 4:00 AM) Respiratory Rate [16-30 18 br/min 18 br/min 19 br/mi n br/min] (09/17/21 4:00 PM) (09/17/21 3:00 PM) (09/17/21 2:00 P M) Temperature [96.8-100.4 DegF] 98.5 DegF 98.2 DegF 98 .5 DegF (09/17/21 12:00 PM) (09/17/21 4:00 AM) (09/17/21 12:00 AM) Mode of Delivery (Oxygen) Room air Room air Room a ir (09/17/21 12:00 PM) (09/16/21 12:00 AM) (09/15/21 8:00 PM) Blood pressure sites Arm, right Arm, right Arm, right (09/17/21 12:00 PM) (09/17/21 4:00 AM) (09/16/21 8:00 PM) Temperature Route Temporal Oral Temporal (09/17/21 12:00 PM) (09/17/21 4:00 AM) (09/17/21 12:00 AM) Dry Weight 74 kg 74 kg 74 kg (09/13/21 8:24 PM) (09/13/21 5:00 AM) (09/13/21 4:5 7 AM) Social History Social History Type Response Smoking Status 5-9 cigarettes (between 1/4 to 1/2 pack)/day in last 30 days; Interested in cessation: No; Patient wants NRT during admission Yes entered on: 09/13/21 Sex Female
--- OUTSIDE RECORDS SUMMARY | 2022-04-27 19:42 | XMS_ITS | Continuity of Care Document ---
:1955 Author Organization [facility] Address [address] [place] [id number]- Care Team Providers Name Role Phone Kelsie Oliver Primary Care Physician Encounter [facility] [place] [place] Date(s): 02/10/20 - 03/11/20 [facility] [address], [place] [address] Allergies, Adverse Reactions, Alerts Substance Reaction Severity [...] 10/12/19 9:33:00 EDT, Route to Pharmacy Electronically, [facility], 160.2, cm, 10/02/19 13:49:00 EDT, Height Start Date: 10/12/19 Stop Date: 04/09/20 Status: OrderedAspirin 81, mg, By Mouth, Daily, 0, 0, 04/12/06 11:40:18, Print RADHA Number, [id number], Constant Indicator Start Date: 04/12/06 Status: OrderedColace Clear = 50 mg, By Mouth, 2 times a day, 0 Refills, Maintenance, 04/16/16 11:25:20 Start Date: 04/16/16 Status: OrderedControlled Substance Agreement Controlled Substance Agreement, See Instructions, # 1 each, Refills 0, Tot. Refills 0, Maintenance, controlled substance agreement signed 10/16/18, pharmacy [facility], dx: mechanical low back pain, 10/16/18 13:09:44 EDT, Compound Start Date: 10/16/18 Status: OrderedEffexor XR 75 mg oral capsule, extended release 75 mg, 1, capsule, By Mouth, Daily, # 90 capsule, Refills 3, Tot. Refills 3, Maintenance, 02/18/20 11:29:00 EST, Route to Pharmacy Electronically, [facility], Partial fill upon patient [...] 1 Refills, Maintenance, 10/12/19 9:33:00 EDT, Tablet, [facility], 160.2, cm, 10/02/19 13:49:00 EDT, Height Start Date: 10/12/19 Stop Date: 04/09/20 Status: Orderedlisinopril 40 mg oral tablet 1 tablet = 40 mg, By Mouth, Daily, # 30 tablet, 5 Refills, Maintenance, 10/12/19 9:33:00 EDT, Tablet, [facility], 160.2, cm, 10/02/19 13:49:00 [...] pain., # 112 tablet, 0 Refills, Maintenance, 03/10/20 8:59:00 EST, [facility], Partial fill upon patient request., 160.2, cm, 02/18/20 10:29:00 EST, Height Start Date: 03/10/20 Status: OrderedSenna By Mouth, Daily, 0 Refills, Maintenance, 11/11/18 11:53:35 EDT Start Date: 11/11/18 Status: Orderedtopiramate 100 mg oral tablet 1 tablet = 100 mg, By Mouth, Daily at bedtime, # 28 tablet, 5 Refills, Maintenance, 08/25/19 8:09:00EDT, [facility], 160.5, cm, 07/07/19 9:17:00 EDT, Height Start Date: 08/25/19 Status: OrderedValium 5 mg oral tablet 5 mg, 1, tablet, By Mouth, 3 times a day, PRN, may take 4th tablet for severe spasm, # 112 tablet, Refills 2, Tot. Refills 2, Maintenance, muscle spasm, 03/10/20 8:59:00 EST, Route to Pharmacy Electronically, [facility], 160.2, cm, 02/18/20 10... Start Date: 03/10/20 Status: OrderedVitamin D3 By Mouth, 0 Refills, [...] Active Vitamin D deficiency(Confirmed) Active 1neg stress vmra2Unx back pain DOI 04/08/200822787lcgsuvl Oswestry Disability Index: 62% ( crippled ) on 06/30/18; initial [place] Back Pain Scale: 81 on goal < 130 smoker, [id number] point injections-neuro Dr HollowayDkmmnh8rzkv management per Dr Vanesa worthy fairbanks- [id number] joint dysfunction status post [id number] 05/24 degenerative changes, L5 S1 facet joint inflam-mg26Nfhp score 0.6 hip, 5.7 [id number]-C: 15 on 2ACE score: 6 on 11/11/18 Social History Social History Type Response Smoking Status 10 or more cigarettes (1/2 p ack or more)/day in last 30 days; Type: Cigarettes; Other: 1ppd-1/2ppd; Started at age: 24; entered on: 09/22/18 Sex
--- OUTSIDE RECORDS SUMMARY | 2022-04-27 19:43 | XMS_ITS | Continuity of Care Document ---
:1955 Author Organization [facility] Address Unavailable , Care Team Providers Name Role Phone Kelsie Oliver Primary Care Physician Encounter [facility] [place] Date(s): 09/26/21 - 10/26/21 [facility] Allergies, Adverse Reactions, Alerts Substance Reaction Severity [...] 5 Refills, Maintenance, 09/17/21 16:39:00 EDT, Tablet, [facility], 160, cm, 09/15/21 4:30:00 EDT, Height, 74, kg, 09/13/21 20:36:00 EDT, Dry Weight Start Date: 09/17/21 Status: Orderedatorvastatin 10 mg oral tablet See Instructions, TAKE ONE TABLET BY MOUTH ONCE DAILY, # 90 tablet, 1 Refills, 07/24/21 14:35:00 EDT, [facility], 160, cm, 02/16/21 11:16:00 EST, Height, 64, kg, 01/19/21 11:44:00 EDT, Dry Weight Start Date: 07/24/21 Status: Orderedcyanocobalamin 1000 mcg oral tablet 1,000 mcg, 1, tablet, By Mouth, Daily, # 90 tablet, Refills 1, Tot. Refills 1, Maintenance, 09/18/2215:40:00 EDT, Route to Pharmacy Electronically, [facility], 160, cm, 09/15/21 4:30:00 EDT, Height, 74, kg, 09/13/21 20:36:00 EDT, Dry Weight Start Date: 09/17/21 Status: Ordereddiltiazem 180 mg/24 hours oral capsule, extended release 180 mg, 1, capsule, By Mouth, Daily, # 30 capsule, Refills 5, Tot. Refills 5, Maintenance, 09/17/21 16:39:00 EDT, Route to Pharmacy Electronically, [facility], 160, cm, 09/15/21 4:30:00 EDT, [...] Active Paroxysmal atrial flutter(Confirmed) Active 1neg stress [id number] Oswestry Disability Index: 58% (26/45; severe disability ); updated [place] Back Pain Disability Scale score: 71 both on 07/20/20 3initial Oswestry Disability Index: 62% ( crippled ) on 06/30/18; initial [place] Back Pain Scale: 81 on goal < 130 smoker, DNb4Qjna score 0.6 hip, 5.7 other Social History Social History Type Response Smoking Status 5-9 cigarettes (between 1/4 to 1/2 pack)/day in last 30 days; Interested in cessation: No; Patient wants NRT during admission Yes entered on: 09/13/21 Sex Female
--- OUTSIDE RECORDS SUMMARY | 2022-04-27 19:43 | XMS_ITS | Continuity of Care Document ---
:[address] [facility] Address Unavailable , Care Team Providers Name Role Phone Kelsie Oliver Primary Care Physician [id number] Date(s): 02/16/21 - 02/23/21 [facility] Attending Physician: Not on Staff, Attending MD [...] 11:52:00 EDT, Route to Pharmacy Electronically, [facility], 160.2, cm, 06/30/20 13:45:00 EDT, Height Start Date: 07/12/20 Stop Date: 01/08/21 Status: OrderedAspirin 81, mg, By Mouth, Daily, 0, 0, 04/12/06 11:40:18, Print RADHA Number, [id number], Constant Indicator Start Date: 04/12/06 Status: Orderedatorvastatin 10 mg oral tablet See Instructions, TAKE ONE TABLET BY MOUTH ONCE DAILY, # 90 tablet, 0 Refills, [facility], 160, cm, 10/31/20 9:48:00 EDT, Height, 66, kg, 08/10/20 13:30:00 EDT, Dry Weight Start Date: 11/04/20 Status: OrderedbuPROPion 100 mg oral tablet 1 tablet = 100 mg, By Mouth, 2 times a day, # 180 tablet, 3 Refills, Maintenance, 02/22/21 8:29:00 EST, Tablet, [facility], Partial fill upon patient request if the prescription is for a schedule II opioid drug., 160, cm, 02/16/21 11:16:00 EST... Start Date: 02/22/21 Status: OrderedControlled Substance Agreement Controlled Substance Agreement, See Instructions, # 1 each, Refills 0, Tot. Refills 0, Maintenance, controlled substance agreement signed 10/16/18 Updated: 07/20/2020 pharmacy [facility] dx: mechanical low back pain M54.5, [...] 04/16/16 11:24:30, Patch Start Date: 04/16/16 Status: Orderedgabapentin 100 mg oral capsule 100 mg, 1, capsule, By Mouth, 2 times a day, # 60 capsule, Refills 3, Tot. Refills 3, Maintenance, 02/21/21 16:31:00 EST, Route to Pharmacy Electronically, [facility], Partial fill upon patientrequest if the prescription is for a schedule II... Start Date: 02/21/21 Status: Orderedlisinopril 40 mg oral tablet 1 tablet = 40 mg, By Mouth, Daily, 1/2 tab daily, # 30 tablet, 1 Refills, Maintenance, 07/12/20 11:52:00 EDT, Tablet, [facility], 160.2, cm, 06/30/20 13:45:00 EDT, Height Start Date: 07/12/20 Stop Date: 09/29/20 Status: OrderedLORazepam 0.5 mg oral tablet 1 tablet = 0.5 mg, By Mouth, 3 times a day, PRN for anxiety, # 90 tablet, 3 Refills, Maintenance, 02/21/21 17:30:00 EST, Tablet, [facility], Partial fill upon patient request if the prescription is for a schedule II opioid drug., 160, cm, 12... Start Date: 02/21/21 Status: Orderednortriptyline 25 mg oral capsule 25 mg, 1, capsule, By Mouth, Daily at bedtime, # 30 capsule, Refills 3, Tot. Refills 3, Maintenance,02/22/21 8:27:00 EST, Route to Pharmacy Electronically, [facility], Partial fill upon patient request if the prescription is for a schedule II... Start Date: 02/22/21 Status: Orderedsenna - oral liquid 10 mL, By Mouth, Daily at bedtime, # 60 mL, 0 Refills, Maintenance, 02/02/21 14:48:00 EST, Liquid, [facility], Partial fill upon patient [...] Active Vitamin D deficiency(Confirmed) Active 1neg stress zzfm0Bha back pain DOI 04/08/200811702Thehegg Oswestry Disability Index: 58% (26/45; severe disability ); updated [place] Back Pain Disability Scale score: 71 both on initial Oswestry Disability Index: 62% ( crippled ) on 06/30/18; initial [place] Back Pain Scale: 81 on goal < 130 smoker, FHx6 trigger point injections-neuro Dr HollowayWlmpmq5bnqq management per Dr Alexis harrah- [id number] joint dysfunction status post [id number] 05/24 degenerative changes, L5 S1 facet joint inflam-qn81Unwm score 0.6 hip, 5.7 [id number]: 15 on 3ACE score: 6 on 11/11/18 Vital Signs Most recent to oldest [Reference Range]: 1 Height 160 cm (02/16/21 11:16 AM) Weight 69.6 kg (02/16/21 11:16 AM) Oxygen Saturation [94-100 %] 98 % (02/16/21 11:16 AM) Pulse Rate [55-90 bpm] 103 bpm *H* (02/16/21 11:16 AM) Body Mass Index [18.5-24.99] 27.19 *H* (02/16/21 11:16 AM) Blood Pressure [90-138/55-84 mm Hg] 112/70 mm Hg (02/16/21 11:16 AM) Blood pressure sites Arm, right (02/16/21 11:16 AM) Weight Obtained Via Standing scale (02/16/21 11:16 AM) Social History Social History Type Response Smoking Status Cigars or pipes but not tad y within last 30 days entered on: 07/29/20 Sex Female
--- OUTSIDE RECORDS SUMMARY | 2022-04-27 19:43 | XMS_ITS | Continuity of Care Document ---
:1955 Author Organization [facility] Address [address] [place] [address]- Care Team Providers Name Role Phone Kelsie Oliver Primary Care Physician Encounter [facility] [place] Date(s): 01/05/22 - 01/12/22 [facility] [address] [place] [address]- Encounter Diagnosis Colon carcinoma metastatic to lung (Discharge Diagnosis) - 01/05/22 Attending Physician: Not on Staff, Attending MD Referring Physician: Kelsie Oliver Allergies, Adverse Reactions, Alerts Substance Reaction Severity Status doxycycline rash Active tetracycline red blotches Persistent Moderate Active Cymbalta Active penicillin rash Active sulfa drugs Active [...] 90 tablet, 1 Refills, 07/24/21 14:35:00 EDT, [facility], 160, cm, 02/16/21 11:16:00 EST, Height, 64, kg, 01/19/21 11:44:00 EDT, Dry Weight Start Date: 07/24/21 Status: Orderedcyanocobalamin 1000 mcg oral tablet 1,000 mcg, 1, tablet, By Mouth, Daily, # 90 tablet, Refills 1, Tot. Refills 1, Maintenance, 09/18/2215:40:00 EDT, Route to Pharmacy Electronically, [facility], 160, cm, 09/15/21 4:30:00 EDT, Height, 74, kg, 09/13/21 20:36:00 EDT, Dry Weight Start Date: 09/17/21 Status: Ordereddexamethasone 1 mg oral tablet 1 tablet = 1 mg, By Mouth, Once, Take at 11pm the night before your blood draw., # 1 tablet, 0 Refills, Soft Stop, 01/03/22 14:49:00 EDT, [facility], Partial fill upon patient request if the prescription is for a schedule II opioid drug., 160,... Start Date: 01/03/22 Status: Ordereddiltiazem 180 mg/24 hours oral capsule, extended release 180 mg, 1, capsule, By Mouth, Daily, # 30 capsule, Refills 5, Tot. Refills 5, Maintenance, 09/17/21 16:39:00 EDT, Route to Pharmacy Electronically, [facility], 160, cm, 09/15/21 4:30:00 EDT, [...] 1 Refills, Maintenance, 09/17/21 16:40:00 EDT, Patch, [facility], 24 hr Topically Daily, 160, cm, 09/15/21 4:30:00 EDT, Height, 74, kg, 09/13/21 20:36:00 EDT, Dry Weight Start Date: 09/17/21 Status: OrderedPEG-3350 with Electrolytes (Eqv-GoLYTELY) oral powder for reconstitution See Instructions, 1 glass every 15-30 minutes until finished, # 4,000 mL, 0 Refills, Maintenance, 01/08/22 13:55:00 EDT, [facility], Partial fill upon patient request if the prescription is fora schedule II opioid drug., 1 glass every 15-30 m... Start Date: 01/08/22 Status: OrderedSenna 8.8 mg/5 mL oral syrup 10 mL, By Mouth, Daily at bedtime, # 60 mL, 1 Refills, Maintenance, 12/22/21 13:12:00 EDT, [facility], 6, 10 mL By [...] artery Confirmed Active stenosis, left 1neg stress [id number] Oswestry Disability Index: 58% (26/45; severe disability ); updated [place] Back Pain Disability Scale score: 71 both on 07/20/20 3initial Oswestry Disability Index: 62% ( crippled ) on 06/30/18; initial [place] Back Pain Scale: 81 on goal < 130 smoker, BHa0Ogvp score 0.6 hip, 5.7 other Diagnosis Diagnosis Type Effective Dates Health Clinical Infor [facility] Status Service Colon carcinoma Discharge 01/05/22 metastatic to Diagnosis lung Vital Signs Most recent to oldest [Reference Range]: 1 Height 160 cm (01/05/22 10:04 AM) Weight 72 kg (01/05/22 10:04 AM) Body Mass Index [18.5-24.99 kg/m2] 28.13 kg/m2 *H* (01/05/22 10:04 AM) Weight Obtained Via Standing scale (01/05/22 10:04 AM) Social History Social History Type Response [...] information PersonnelName: Kelsie Oliver Address: Address: [address] [place], [place] [address]
--- OUTSIDE RECORDS SUMMARY | 2022-04-27 19:43 | XMS_ITS | Continuity of Care Document ---
:1955 Author Organization [facility] Address [address] [place] [address]- Care Team Providers Name Role Phone Kelsie Oliver Primary Care Physician Encounter [facility] Date(s): 01/12/22 - 02/11/22 [facility] [address] [place] [address]- Allergies, Adverse Reactions, Alerts Substance Reaction Severity Status doxycycline rash Active tetracycline red blotches Persistent Moderate Active Flexeril rash Active Cymbalta Active penicillin rash Active sulfa drugs Active nonsteroidal anti-inflammatory agents [D]Wheezing Active Immunizations Given and Recorded Vaccine Date Status Refusal Reason SARS-CoV-2 (COVID-19) mRNA-1273 vaccine 03/06/21 Recorded SARS-CoV-2 (COVID-19) mRNA-1273 vaccine 06/12/20 Recorded SARS-CoV-2 (COVID-19) mRNA-1273 vaccine 05/15/20 Recorded tetanus/diphtheria/pertussis, acel(Tdap) 06/02/15 Given tetanus-diphtheria toxoids (Td)1 05/16/05 Given 1Admin Note: [facility] Medications Acetaminophen 0 Refills, Maintenance, 01/31/22 14:33:00 EST, Partial fill upon patient request if the prescriptionis for a schedule II opioid drug. Start Date: 01/31/22 Status: Orderedapixaban 5 mg oral tablet 1 tablet = [...] Unknown, 1 Refills, Maintenance, 02/09/22 18:57:00 EST, [facility], 163, cm, 01/31/22 14:28:00 EST, Height, 72.6, kg, 01/24/22 13:07:00 EST, Dry Weight Start Date: 02/09/22 Status: Orderedcyanocobalamin 1000 mcg oral tablet 1,000 mcg, 1, tablet, By Mouth, Daily, # 90 tablet, Refills 1, Tot. Refills 1, Maintenance, 09/18/2215:40:00 EDT, Route to Pharmacy Electronically, [facility], 160, cm, 09/15/21 4:30:00 EDT, Height, 74, kg, 09/13/21 20:36:00 EDT, Dry Weight Start Date: 09/17/21 Status: Ordereddiltiazem 180 mg/24 hours oral capsule, extended release 180 mg, 1, capsule, By Mouth, Daily, # 30 capsule, Refills 5, Tot. Refills 5, Maintenance, 09/17/21 16:39:00 EDT, Route to Pharmacy Electronically, [facility] #[facility], 160, cm, 09/15/21 4:30:00 [...] 1 Refills, Maintenance, 09/17/21 16:40:00 EDT, Patch, [facility] #66, 24 hr Topically Daily, 160, cm, 09/15/21 4:30:00 EDT, Height, 74, kg, 09/13/21 20:36:00 EDT, Dry Weight Start Date: 09/17/21 Status: OrderedSenna 8.8 mg/5 mL oral syrup 10 mL, By Mouth, Daily at bedtime, # 900 mL, 3 Refills, Maintenance, 01/18/22 13:14:00 EDT, [facility] #[facility], 10 mL By Mouth Daily at bedtime, 163, cm, 01/16/22 7:20:00 EDT, Height, 73, kg, 01/16/22 7:20:00 EDT, Dry Weight Start Date: 01/18/22 Status: OrderedVitamin D3 By Mouth, 0 Refills, [...] adenocarcinoma of upper lobe of left lung ([id number]) Subclavian artery Confirmed Active stenosis, left Tubular adenoma of Confirmed Active colon 1neg stress [id number] Oswestry Disability Index: 58% (26/45; severe disability ); updated [place] Back Pain Disability Scale score: 71 both on 07/20/20 3initial Oswestry Disability Index: 62% ( crippled ) on 06/30/18; initial [place] Back Pain Scale: 81 on goal < 130 smoker, KCc7Jgnx score 0.6 hip, 5.7 other Social History [...] information Care Team PersonnelName: Kelsie Oliver Position: [facility] PCO Associate Professional Member Role: PCP Address: Address: [address] [place] [id number]- Name: Ryan Blackmon DO Position: [facility] Physician -Physician Practices Member Role: [employer] Physician Address: Address: [address] [place] [address]- Name: Karen Stearns RN Position: [facility] RN Member Role: Primary Care Nurse Name: Vandana Hu RN Position: [facility] RN Member Role: Primary Care Nurse Care Team Related PersonsName: SILVER ROSSI Name: LASHAY MORLEY Address: [address] [address]
--- OUTSIDE RECORDS SUMMARY | 2022-04-27 19:43 | XMS_ITS | Continuity of Care Document ---
:1955 Author Organization [facility] Address [address] [place] [address]- Care Team Providers Name Role Phone Kelsie Oliver Primary Care Physician Encounter [facility] Date(s): 04/01/20 - 05/01/20 [facility] [address] [place] [address]- Allergies, Adverse Reactions, Alerts Substance Reaction Severity [...] By Mouth, Daily, # 90 tablet, Refills 0, Tot. Refills 0, Maintenance, 04/09/20 9:33:00 EST, Route to Pharmacy Electronically, [facility] #66, 160.2, cm, 03/24/20 12:29:00 EST, Height Start Date: 04/09/20 Stop Date: 07/08/20 Status: OrderedAspirin 81, mg, By Mouth, Daily, 0, 0, 04/12/06 11:40:18, Print RADHA Number, [id number], Constant Indicator Start Date: 04/12/06 Status: OrderedColace [...] = 40 mg, By Mouth, Daily, # 90 tablet, 0 Refills, Maintenance, 04/01/20 13:38:00 EST, Tablet, [facility] #66, 160.2, cm, 03/24/20 12:29:00 EST, Height Start Date: 04/01/20 Status: Orderedmeclizine 12.5 mg oral tablet 1 [...] pain., # 112 tablet, 0 Refills, Maintenance, 04/20/20 11:07:00 EST, [facility] #66, Partial fill upon patient request. Please also refill diazepam. Thank you, 16... Start Date: 04/20/20 Status: OrderedSenna By Mouth, Daily, 0 Refills, Maintenance, 11/11/18 11:53:35 EDT Start Date: 11/11/18 Status: OrderedValium 5 mg oral tablet 5 mg, 1, tablet, By Mouth, 3 times a day, PRN, may take 4th tablet for severe spasm, # 112 tablet, Refills 2, Tot. Refills 2, Maintenance, muscle spasm, 03/10/20 8:59:00 EST, Route to Pharmacy Electronically, [facility] #66, 160.2, cm, 02/18/20 10... Start [...] Active Vitamin D deficiency(Confirmed) Active 1neg stress senh5Uke back pain DOI 04/08/200809795iuokjuw Oswestry Disability Index: 62% ( crippled ) on 06/30/18; initial [place] Back Pain Scale: 81 on goal < 130 smoker, MLi1sscbjhq point injections-neuro Dr HollowayGytcmu2eimu management per Dr Alexis hamel- ubial9AHOH VUKZY0CD joint dysfunction status post pfwpsryuh4QRZ 05/24 degenerative changes, L5 S1 facet joint inflam-sa78Yacx score 0.6 hip, 5.7 [id number]-L: 15 on 2ACE score: 6 on 11/11/18 Social History Social History Type Response Smoking Status 10 or more cigarettes (1/2 p ack or more)/day in last 30 days; Type: Cigarettes; Other: 1ppd-1/2ppd; Started at age: 24; entered on: 09/22/18 Sex
--- OUTSIDE RECORDS SUMMARY | 2022-04-27 19:43 | XMS_ITS | Continuity of Care Document ---
:1955 Author Organization [facility] Address [address] [place] [address]- Care Team Providers Name Role Phone Kelsie Oliver Primary Care Physician Encounter [id number] Date(s): 07/20/20 - 11/17/20 [facility] [address] [place] [address] Attending Physician: Tejas Abreu Jr, MD Admitting Physician: Tejas Abreu Jr, MD Allergies, Adverse Reactions, Alerts Substance Reaction [...] 07/12/20 11:52:00 EDT, Route to Pharmacy Electronically, [facility] #[facility], 160.2, cm, 06/30/20 13:45:00 EDT, Height Start Date: 07/12/20 Stop Date: 01/08/21 Status: OrderedAspirin 81, mg, By Mouth, Daily, 0, 0, 04/12/06 11:40:18, Print RADHA Number, [id number], Constant Indicator Start Date: 04/12/06 Status: Orderedatorvastatin 10 mg oral tablet See Instructions, TAKE ONE TABLET BY MOUTH ONCE DAILY, # 90 tablet, 0 Refills, [facility] #[facility], 160, cm, 10/31/20 9:48:00 EDT, Height, 66, kg, 08/10/20 13:30:00 EDT, Dry Weight Start Date: 11/04/20 Status: OrderedControlled Substance Agreement Controlled Substance Agreement, See Instructions, # 1 each, Refills 0, Tot. Refills 0, Maintenance, controlled substance agreement signed 10/16/18 Updated: 07/20/2020 pharmacy [facility] Geraldo dx: mechanical low back pain [...] tablet, 1 Refills, Maintenance, 06/29/20 8:06:00 EDT, [facility] #[facility], 160.2, cm, 05/30/20 11:21:00 [...] 1 Refills, Maintenance, 07/12/20 11:52:00 EDT, Tablet, [facility] #[facility], 160.2, cm, 06/30/20 13:45:00 EDT, Height Start Date: 07/12/20 Stop Date: 09/29/20 Status: OrderedLyrica 50 mg oral capsule 1 capsule = 50 mg, By Mouth, 3 times a day, # 90 capsule, 3 Refills, Maintenance, 09/13/20 17:40:00 EDT, Capsule, [facility], Partial fill upon patient [...] 11/18/20 8:00:00 EDT, 09/16/20 7:57:00 EDT, Patch, [facility] #66, Partial fill upon patient request if the prescription is for a schedule IIopioid drug., 1 patch Topically Daily, 160, cm, 0... Start Date: 09/16/20 Stop Date: 11/18/20 Status: OrderedoxyCODONE 10 mg oral tablet 0.5 to 1 tablet, By Mouth, Every 6 hours, PRN pain r/t work injury, # 35 tablet, 0 Refills, Maintenance, 09/14/20 17:19:00 EDT, [facility], 160, cm, 08/30/20 11:02:00 [...] Active Vitamin D deficiency(Confirmed) Active 1neg stress seyx0Aim back pain DOI 04/08/200830693Ivplywx Oswestry Disability Index: 58% (26/45; severe disability ); updated [place] Back Pain Disability Scale score: 71 both on initial Oswestry Disability Index: 62% ( crippled ) on 06/30/18; initial [place] Back Pain Scale: 81 on goal < 130 smoker, FHx6 trigger point injections-neuro Dr HollowayMxdhoq0gmbm management per Dr Alexis keno- cdigy6MHOL HKKOX3BF joint dysfunction status post jlwrhumqr08QDR 05/24 degenerative changes, L5 S1 facet joint inflam-mv82Ulit score 0.6 hip, 5.7 [id number]-F: 15 on 3ACE score: 6 on 11/11/18 Social History Social History Type Response Smoking Status Cigars or pipes but not tad y within last 30 days entered on: 07/29/20 Sex Female
--- OUTSIDE RECORDS SUMMARY | 2022-04-27 19:43 | XMS_ITS | Continuity of Care Document ---
:1955 Author Organization [facility] Address [address] [place] [address]- Care Team Providers Name Role Phone Kelsie Oliver Primary Care Physician [place] [facility] Date(s): 08/03/20 - 09/02/20 [facility] [address] [place] [address]- Allergies, Adverse Reactions, Alerts Substance Reaction Severity [...] Given 1Admin Note: [facility] Medications amLODIPine 5 mg oral tablet 5 mg, 1, tablet, By Mouth, Daily, # 90 tablet, Refills 1, Tot. Refills 1, Maintenance, 07/12/20 11:52:00 EDT, Route to Pharmacy Electronically, [facility] #[facility], 160.2, cm, 06/30/20 13:45:00 EDT, Height Start Date: 07/12/20 Stop Date: 01/08/21 Status: OrderedAspirin 81, mg, By Mouth, Daily, 0, 0, 04/12/06 11:40:18, Print RADHA Number, [id number], Constant Indicator Start Date: 04/12/06 Status: OrderedControlled Substance Agreement Controlled Substance Agreement, See Instructions, # 1 each, Refills 0, Tot. Refills 0, Maintenance, controlled substance agreement signed 10/16/18 Updated: 07/20/2020 pharmacy [facility] Chow dx: mechanical low back pain M54.5, 07/25/20 8:52:00 EDT, Compound Start Date: 07/25/20 Status: OrderedElectrolytes weekly x4 Electrolytes weekly x4, See Instructions, # 1 each, Refills 0, Tot. Refills 0, Maintenance, Hyponatremia, 07/31/20 14:27:00 EDT, Supply Start Date: 07/31/20 Status: Orderedfamotidine 40 mg oral tablet See Instructions, 1 tab po 1 or 2 times per day., # 56 tablet, 1 Refills, Maintenance, 06/29/20 8:06:00 EDT, [facility] #[facility], 160.2, cm, 05/30/20 [...] 1 Refills, Maintenance, 04/09/20 9:33:00 EST, Tablet, [facility] #[facility], 160.2, cm, 03/24/20 12:29:00 EST, Height Start Date: 04/09/20 Stop Date: 10/06/20 Status: Orderedlisinopril 40 mg oral tablet 1 tablet = 40 mg, By Mouth, Daily, 1/2 tab daily, # 30 tablet, 1 Refills, Maintenance, 07/12/20 11:52:00 EDT, Tablet, [facility] #[facility], 160.2, cm, 06/30/20 13:45:00 EDT, Height Start Date: 07/12/20 Stop Date: 09/29/20 Status: OrderedLyrica 50 mg oral capsule 1 capsule = 50 mg, By Mouth, 3 times a day, # 42 capsule, 1 Refills, Maintenance, 08/19/20 14:28:00 EDT, Capsule, [facility] #[facility], Partial fill upon patient request if the prescription is for a schedule II opioid drug., 160, cm, 08/18/20 15:42:00 E... Start Date: 08/19/20 Stop Date: 09/16/20 Status: OrderedMOM Liquid By Mouth, Daily at bedtime, 0 Refills, Maintenance, 12/10/19 9:14:00 EDT Start Date: 12/10/19 Status: Orderednicotine 14 mg/24 hr transdermal film, extended release 1 patch, Topically, Daily, for 14 days, # 14 patch, 0 Refills, Acute 09/05/20 11:21:00 EDT, 08/22/2110:21:00 EDT, Patch, [facility], Partial fill upon patient request if the prescription is for a schedule II opioid drug., 1 patch Topically Da... Start Date: 08/22/20 Stop Date: 09/05/20 Status: OrderedtraZODone 50 mg oral tablet 25 mg, 0.5, tablet, By Mouth, Daily at bedtime, # 15 tablet, Refills 3, Tot. Refills 3, Maintenance,08/08/20 10:06:00 EDT, Route to Pharmacy Electronically, [facility] #[facility], Discontinue Cymbalta, 160, cm, 08/08/20 9:24:00 EDT, Height, 67.9, kg, 05... Start Date: 08/08/20 Stop Date: 12/06/20 Status: OrderedValium 5 mg oral tablet 5 mg, 1, tablet, By Mouth, 2 times a day, PRN, for 14 days, # 28 tablet, Refills 1, Tot. Refills 1, Acute 09/16/20 14:28:00 EDT, Pain , Severe, 08/19/20 14:28:00 EDT, Route to Pharmacy Electronically, [facility] #[facility], Partial fill upon patient requ... Start Date: 08/19/20 Stop Date: 09/16/20 Status: OrderedVitamin D3 By Mouth, 0 Refills, [...] Active Vitamin D deficiency(Confirmed) Active 1neg stress erad1Woo back pain DOI 04/08/200871764Elcnmep Oswestry Disability Index: 58% (26/45; severe disability ); updated [place] Back Pain Disability Scale score: 71 both on initial Oswestry Disability Index: 62% ( crippled ) on 06/30/18; initial [place] Back Pain Scale: 81 on goal < 130 smoker, FHx6 trigger point injections-neuro Dr HollowayFayyen5feio management per Dr Alexis new rochelle- jctap7HITI VROZM5YX joint dysfunction status post rljrwlyzh06MJM 05/24 degenerative changes, L5 S1 facet joint inflam-vo23Oimj score 0.6 hip, 5.7 phafo01BCGQJ-L: 15 on 3ACE score: 6 on 11/11/18 Social History Social History Type Response Smoking Status Cigars or pipes but not tad y within last 30 days entered on: 07/29/20 Sex
--- OUTSIDE RECORDS SUMMARY | 2022-04-27 19:43 | XMS_ITS | Continuity of Care Document ---
:1955 Author Organization [facility] Address [address] [place] [address]- Care Team Providers Name Role Phone Kelsie Oliver Primary Care Physician Encounter [facility] Date(s): 11/27/19 - 12/27/19 [facility] [address] [place] [address] [facility] Allergies, Adverse Reactions, Alerts Substance Reaction Severity [...] 10/12/19 9:33:00 EDT, Route to Pharmacy Electronically, [facility], 160.2, cm, 10/02/19 13:49:00 EDT, Height Start Date: 10/12/19 Stop Date: 04/09/20 Status: OrderedAspirin 81, mg, By Mouth, Daily, 0, 0, 04/12/06 11:40:18, Print RADHA Number, [id number], Constant Indicator Start Date: 04/12/06 Status: OrderedBelbuca 150 mcg buccal film 1 each = 150 mcg, By Mouth, Every 12 hours, place film on inside of cheek and avoid food or drink until completely dissolved, # 28 film, 0 Refills, Maintenance, 12/14/19 13:00:00 EDT Start Date: 12/14/19 Status: OrderedColace Clear = 50 mg, By Mouth, 2 times a day, 0 Refills, Maintenance, 04/16/16 11:25:20 Start Date: 04/16/16 Status: OrderedControlled Substance Agreement Controlled Substance Agreement, See Instructions, # 1 each, Refills 0, Tot. Refills 0, Maintenance, controlled substance agreement signed 10/16/18, pharmacy [facility] , dx: mechanical low back pain, 10/16/18 13:09:44 [...] pain., # 112 tablet, 0 Refills, Maintenance, 12/10/19 12:27:00 EDT, [facility] #[facility], Partial fill upon patient request., 160.2, cm, 12/10/19 9:19:00 EDT, Height Start Date: 12/10/19 Status: OrderedSenna By Mouth, Daily, 0 Refills, Maintenance, 11/11/18 11:53:35 EDT Start Date: 11/11/18 Status: Orderedtopiramate 100 mg oral tablet 1 tablet = 100 mg, By Mouth, Daily at bedtime, # 28 tablet, 5 Refills, Maintenance, 08/25/19 8:09:00EDT, [facility] #[facility], 160.5, cm, 07/07/19 9:17:00 EDT, [...] Active Vitamin D deficiency(Confirmed) Active 1neg stress jzyf2Pjh back pain DOI 04/08/200861040auafnpp Oswestry Disability Index: 62% ( crippled ) on 06/30/18; initial [place] Back Pain Scale: 81 on goal < 130 smoker, VDs0cciwwrr point injections-neuro Dr HollowayPgqatl1epjm management per Dr Alexis foresthill- kqkmm0HWVW WBGBT6VF joint dysfunction status post tmketuefp8QQD 05/24 degenerative changes, L5 S1 facet joint inflam-wq75Cljr score 0.6 hip, 5.7 tkvgp36TNHLG-U: 15 on 2ACE score: 6 on 11/11/18 Social History Social History Type Response Smoking Status 10 or more cigarettes (1/2 p ack or more)/day in last 30 days; Type: Cigarettes; Other: 1ppd-1/2ppd; Started at age: 24; entered on: 09/22/18 Sex
--- OUTSIDE RECORDS SUMMARY | 2022-04-27 19:43 | XMS_ITS | Continuity of Care Document ---
:1955 Author Organization [facility] Address [address] [place] [address]- Care Team Providers Name Role Phone Kelsie Oliver Primary Care Physician Encounter [facility] Date(s): 12/21/21 - 01/20/22 [facility] [address] [place] [address]- Allergies, Adverse Reactions, Alerts Substance Reaction Severity [...] 09/17/21 Status: Orderedatorvastatin 10 mg oral tablet 1 tablet = 10 mg, By Mouth, Daily, # 30 tablet, 0 Refills, Maintenance, 01/16/22 7:17:00 EDT, Partial fill upon patient request if the prescription is for a schedule II opioid drug. Start Date: 01/16/22 Status: Orderedatorvastatin 10 mg oral tablet See Instructions, TAKE ONE TABLET BY MOUTH ONCE DAILY, # 90 tablet, 1 Refills, 07/24/21 14:35:00 EDT, [facility], 160, cm, 02/16/21 11:16:00 EST, Height, 64, kg, 01/19/21 11:44:00 EDT, Dry Weight Start Date: 07/24/21 Status: Orderedcyanocobalamin 1000 mcg oral tablet 1,000 mcg, 1, tablet, By Mouth, Daily, # 90 tablet, Refills 1, Tot. Refills 1, Maintenance, 09/18/2215:40:00 EDT, Route to Pharmacy Electronically, [facility], 160, cm, 09/15/21 4:30:00 EDT, Height, 74, kg, 09/13/21 20:36:00 EDT, Dry Weight Start Date: 09/17/21 Status: Ordereddexamethasone 1 mg oral tablet 1 tablet = 1 mg, By Mouth, Once, Take at 11pm the night before your blood draw., # 1 tablet, 0 Refills, Soft Stop, 01/03/22 14:49:00 EDT, [facility], Partial fill upon patient request if the prescription is for a schedule II opioid drug., 160,... Start Date: 01/03/22 Status: Ordereddiltiazem 180 mg/24 hours oral capsule, extended release 180 mg, 1, capsule, By Mouth, Daily, # 30 capsule, Refills 5, Tot. Refills 5, Maintenance, 09/17/21 16:39:00 EDT, Route to Pharmacy Electronically, [facility], 160, cm, [...] 1 Refills, Maintenance, 09/17/21 16:40:00 EDT, Patch, [facility], 24 hr Topically Daily, 160, cm, 09/15/21 4:30:00 EDT, Height, 74, kg, 09/13/21 20:36:00 EDT, Dry Weight Start Date: 09/17/21 Status: OrderedPEG-3350 with Electrolytes (Eqv-GoLYTELY) oral powder for reconstitution See Instructions, 1 glass every 15-30 minutes until finished, # 4,000 mL, 0 Refills, Maintenance, 01/08/22 13:55:00 EDT, [facility], Partial fill upon patient request if the prescription is fora schedule II opioid drug., 1 glass every 15-30 m... Start Date: 01/08/22 Status: OrderedSenna 8.8 mg/5 mL oral syrup 10 mL, By Mouth, Daily at bedtime, # 900 mL, 3 Refills, Maintenance, 01/18/22 13:14:00 EDT, [facility], 10 mL By Mouth [...] artery Confirmed Active stenosis, left 1neg stress rbrf4Axbxszw Oswestry Disability Index: 58% (26/45; severe disability ); updated [place] Back Pain Disability Scale score: 71 both on 07/20/20 3initial Oswestry Disability Index: 62% ( crippled ) on 06/30/18; initial [place] Back Pain Scale: 81 on goal < 130 smoker, PTn6Jpgb score 0.6 hip, 5.7 other Social History [...] information PersonnelName: Kelsie Oliver Address: Address: [address] [place], [place] [address]
--- OUTSIDE RECORDS SUMMARY | 2022-04-27 19:43 | XMS_ITS | Continuity of Care Document ---
:1955 Author Organization [facility] Address [address] [place] [address]- Care Team Providers Name Role Phone Kelsie Oliver Primary Care Physician Encounter [facility] [place] Date(s): 10/02/19 - 11/01/19 [facility] [address] [place] [address]- [facility] Attending Physician: Brenton Cabrera Admitting Physician: AdmBrenton alvarez Referring Physician: AdmtrBrenton Allergies, Adverse Reactions, Alerts [...] 10/12/19 9:33:00 EDT, Route to Pharmacy Electronically, [facility], 160.2, cm, 10/02/19 13:49:00 EDT, Height Start Date: 10/12/19 Stop Date: 04/09/20 Status: OrderedAspirin 81, mg, By Mouth, Daily, 0, 0, 04/12/06 11:40:18, Print RADHA Number, [id number], Constant Indicator Start Date: 04/12/06 Status: OrderedColace Clear = 50 mg, By Mouth, 2 times a day, 0 Refills, Maintenance, 04/16/16 11:25:20 Start Date: 04/16/16 Status: OrderedControlled Substance Agreement Controlled Substance Agreement, See Instructions, # 1 each, Refills 0, Tot. Refills 0, Maintenance, controlled substance agreement signed 10/16/18, pharmacy [facility], dx: mechanical low back pain, 10/16/18 [...] 1 Refills, Maintenance, 10/12/19 9:33:00 EDT, Tablet, [facility], 160.2, cm, 10/02/19 13:49:00 EDT, Height Start Date: 10/12/19 Stop Date: 04/09/20 Status: Orderedlisinopril 40 mg oral tablet 1 tablet = 40 mg, By Mouth, Daily, # 30 tablet, 5 Refills, Maintenance, 10/12/19 9:33:00 EDT, Tablet, [facility], 160.2, cm, 10/02/19 13:49:00 EDT, Height Start Date: 10/12/19 Status: Orderedmeclizine 12.5 mg oral tablet 1 to 2 tablet, By Mouth, 4 times a day, PRN as needed for nausea/dizziness, # 30 tablet, 0 Refills, Maintenance, 10/16/18 13:09:15 EDT Start Date: 10/16/18 Status: Orderedmethylphenidate 5 mg oral tablet See Instructions, 2 tablet by mouth in AM, 1 tablet at noon, # 42 tablet, Refills 0, Tot. Refills 0,Maintenance, 07/07/19 12:09:00 EDT, Instructions Replace Required Details, Route to Pharmacy Electronically, [facility], 160.5, cm, 07/07/19 9... Start Date: 07/07/19 Status: OrderedNarcan 4 mg/0.1 mL nasal spray [...] pain., # 112 tablet, 0 Refills, Maintenance, 10/20/19 12:30:00 EDT, [facility], Partial fill upon patient request., 160.2, cm, 10/02/19 13:49:00 EDT, Height Start Date: 10/20/19 Status: OrderedSenna By Mouth, Daily, 0 Refills, Maintenance, 11/11/18 11:53:35 EDT Start Date: 11/11/18 Status: Orderedtopiramate 100 mg oral tablet 1 tablet = 100 mg, By Mouth, Daily at bedtime, # 28 tablet, 5 Refills, Maintenance, 08/25/19 8:09:00EDT, [facility] #[facility], 160.5, cm, 07/07/19 9:17:00 EDT, Height Start Date: 08/25/19 Status: OrderedValium 5 mg oral tablet 5 mg, 1, tablet, By Mouth, 3 times a day, PRN, may take 4th tablet for severe spasm, # 112 tablet, Refills 2, Tot. Refills 2, Maintenance, muscle spasm, 09/22/19 12:26:00 EDT, Route to Pharmacy Electronically, [facility], 160.5, cm, 07/07/19 9... Start Date: 09/22/19 Status: OrderedVitamin D3 By Mouth, 0 Refills, [...] Active Vitamin D deficiency(Confirmed) Active 1neg stress ohks3Dxb back pain DOI 04/08/200850518byreinj Oswestry Disability Index: 62% ( crippled ) on 06/30/18; initial [place] Back Pain Scale: 81 on goal < 130 smoker, M[place]un[place]on point injections-neuro Dr HollowayIvwpjo8ahkx management per Dr Alexis montgomery- zxepy3FOXW HJJZY7RM joint dysfunction status post nwssuvlqs6EBS 05/24 degenerative changes, L5 S1 facet joint inflam-gi17Imnc score 0.6 hip, 5.7 ujcwn04MRTII-O: 15 on 2ACE score: 6 on 11/11/18 Social History Social History Type Response Smoking Status 10 or more cigarettes (1/2 p ack or more)/day in last 30 days; Type: Cigarettes; Other: 1ppd-1/2ppd; Started at age: 24; entered on: 09/22/18 Sex
--- OUTSIDE RECORDS SUMMARY | 2022-04-27 19:43 | XMS_ITS | Continuity of Care Document ---
:1955 Author Organization [facility] Address [address] [place] [address]- Care Team Providers Name Role Phone Kelsie Oliver Primary Care Physician Encounter [facility] Date(s): 03/10/20 - 04/09/20 [facility] [address], [place] [address] Attending Physician: Brenton Cabrera Admitting Physician: Brenton Cabrera Referring Physician: AdmtrBrenton Allergies, Adverse Reactions, Alerts [...] 04/09/20 9:33:00 EST, Route to Pharmacy Electronically, [facility], 160.2, cm, 03/24/20 12:29:00 EST, Height Start Date: 04/09/20 Stop Date: 07/08/20 Status: OrderedAspirin 81, mg, By Mouth, Daily, 0, 0, 04/12/06 11:40:18, Print RADHA Number, [id number], Constant Indicator Start Date: 04/12/06 Status: OrderedColace [...] 1 Refills, Maintenance, 04/09/20 9:33:00 EST, Tablet, [facility], 160.2, cm, 03/24/20 12:29:00 EST, Height Start Date: 04/09/20 Stop Date: 10/06/20 Status: Orderedlisinopril 40 mg oral tablet 1 tablet = 40 mg, By Mouth, Daily, # 90 tablet, 0 Refills, Maintenance, 04/01/20 13:38:00 EST, Tablet, [facility], 160.2, cm, [...] tablet, 0 Refills, Maintenance, 03/10/20 8:59:00 EST, [facility], Partial fill [...] 03/10/20 8:59:00 EST, Route to Pharmacy Electronically, [facility], 160.2, cm, 02/18/20 10... Start [...] Active Vitamin D deficiency(Confirmed) Active 1neg stress ibwu6Plk back pain DOI 04/08/200862099tppyljx Oswestry Disability Index: 62% ( crippled ) on 06/30/18; initial [place] Back Pain Scale: 81 on goal < 130 smoker, LLg6enntqvu point injections-neuro Dr HollowayTajixw1dpgx management per Dr Alexis yutan- buybv3LFHF BFCSN2DQ joint dysfunction status post zwkgooqlx4ADN 05/24 degenerative changes, L5 S1 facet joint inflam-fk78Drhs score 0.6 hip, 5.7 dzutx13PRRAJ-W: 15 on 2ACE score: 6 on 11/11/18 Social History Social History Type Response Smoking Status 10 or more cigarettes (1/2 p ack or more)/day in last 30 days; Type: Cigarettes; Other: 1ppd-1/2ppd; Started at age: 24; entered on: 09/22/18 Sex
--- OUTSIDE RECORDS SUMMARY | 2022-04-27 19:43 | XMS_ITS | Continuity of Care Document ---
:1955 Author Organization [facility] Address [address] [place] [address]- Care Team Providers Name Role Phone Kelsie Oliver Primary Care Physician Encounter [facility] [id number] Date(s): 10/02/19 - 10/09/19 [facility] [address] [place] [address]- [facility] Attending Physician: Ryan Hicks MD Referring Physician: Kelsie Oliver Allergies, Adverse [...] 09/22/18 14:57:41 EDT, Route to Pharmacy Electronically, [id number], [facility] Start Date: 09/22/18 Stop Date: 09/17/19 Status: OrderedAspirin 81, mg, By Mouth, Daily, 0, 0, 04/12/06 11:40:18, Print RADHA Number, [id number], Constant Indicator Start Date: 04/12/06 Status: OrderedColace Clear = 50 mg, By Mouth, 2 times a day, 0 Refills, Maintenance, 04/16/16 11:25:20 Start Date: 04/16/16 Status: OrderedControlled Substance Agreement Controlled Substance Agreement, See Instructions, # 1 each, Refills 0, Tot. Refills 0, Maintenance, controlled substance agreement signed 10/16/18, pharmacy [facility], dx: mechanical low back pain, 10/16/18 [...] Refills, Maintenance, Tablet, Route to Pharmacy Electronically, [id number], [facility] Start Date: 09/22/18 Stop Date: 09/17/19 Status: Orderedlisinopril 40 mg oral tablet 1 tablet = 40 mg, By Mouth, Daily, # 30 tablet, 5 Refills, Maintenance, 05/05/19 11:40:00 EST, Tablet, [facility], 160.5, cm, 03/27/19 [...] Replace Required Details, Route to Pharmacy Electronically, [facility], 160.5, cm, 07/07/19 9... [...] pain., # 112 tablet, 0 Refills, Maintenance, 09/22/19 12:26:00 EDT, [facility], Partial fill upon patient request., 160.5, cm, 07/07/19 9:17:00 EDT, Height Start Date: 09/22/19 Status: OrderedSenna By Mouth, Daily, 0 Refills, Maintenance, 11/11/18 11:53:35 EDT Start Date: 11/11/18 Status: Orderedtopiramate 100 mg oral tablet 1 tablet = 100 mg, By Mouth, Daily at bedtime, # 28 tablet, 5 Refills, Maintenance, 08/25/19 8:09:00EDT, [facility], 160.5, cm, 07/07/19 9:17:00 EDT, Height Start Date: 08/25/19 Status: OrderedValium 5 mg oral tablet 5 mg, 1, tablet, By Mouth, 3 times a day, PRN, may take 4th tablet for severe spasm, # 112 tablet, Refills 2, Tot. Refills 2, Maintenance, muscle spasm, 09/22/19 12:26:00 EDT, Route to Pharmacy Electronically, [facility], 160.5, cm, 07/07/19 9... Start [...] Active Vitamin D deficiency(Confirmed) Active 1neg stress ivmk9Htx back pain DOI 04/08/200886883yvarpjc Oswestry Disability Index: 62% ( crippled ) on 06/30/18; initial [place] Back Pain Scale: 81 on goal < 130 smoker, INw6zwelhzm point injections-neuro Dr HollowayYqdxdq9nkkq management per Dr Vanesa worthy [place]- sacik3MPEF FKSCP2DW joint dysfunction status post oaveiyxcq4VGQ 05/24 degenerative changes, L5 S1 facet joint inflam-gm77Qlxq score 0.6 hip, 5.7 glzdc20GLJKM-H: 15 on 2ACE score: 6 on 11/11/18 Vital Signs Most recent to oldest [Reference Range]: 1 Height 160.2 cm (10/02/19 1:49 PM) Weight 70.7 kg (10/02/19 1:49 PM) Pulse Rate [55-90 bpm] 71 bpm (10/02/19 1:49 PM) Body Mass Index [18.5-24.99] 27.55 *H* (10/02/19 1:49 PM) Blood Pressure [90-138/55-84 mm Hg] 102/80 mm Hg (10/02/19 1:49 PM) Blood pressure sites Arm, left (10/02/19 1:49 PM) Social History Social History Type Response Smoking Status 10 or more cigarettes (1/2 p ack or more)/day in last 30 days; Type: Cigarettes; Other: 1ppd-1/2ppd; Started at age: 24; entered on: 09/22/18 Sex
--- OUTSIDE RECORDS SUMMARY | 2022-04-27 19:43 | XMS_ITS | Continuity of Care Document ---
:1955 Author Organization [facility] Address [address] [place] [address]- Care Team Providers Name Role Phone Kelsie Oliver Primary Care Physician Encounter [facility] Date(s): 01/16/22 - 01/16/[address] [address] Discharge Disposition: A-D/C Home Attending Physician: Mina Muniz MD Admitting Physician: Mina Muniz MD Referring Physician: Mina Muniz MD Allergies, Adverse Reactions, Alerts Substance Reaction Severity Status doxycycline rash Active tetracycline red blotches Persistent Moderate Active Flexeril rash Active Cymbalta Active nonsteroidal anti-inflammatory agents [D]Wheezing Active penicillin rash Active sulfa drugs Active Immunizations Given and Recorded Vaccine Date [...] 90 tablet, 1 Refills, 07/24/21 14:35:00 EDT, [facility], 160, cm, 02/16/21 11:16:00 EST, Height, 64, kg, 01/19/21 11:44:00 EDT, Dry Weight Start Date: 07/24/21 Status: Orderedcyanocobalamin 1000 mcg oral tablet 1,000 mcg, 1, tablet, By Mouth, Daily, # 90 tablet, Refills 1, Tot. Refills 1, Maintenance, 09/18/2215:40:00 EDT, Route to Pharmacy Electronically, [facility], 160, cm, 09/15/21 4:30:00 EDT, Height, 74, kg, 09/13/21 20:36:00 EDT, Dry Weight Start Date: 09/17/21 Status: Ordereddexamethasone 1 mg oral tablet 1 tablet = 1 mg, By Mouth, Once, Take at 11pm the night before your blood draw., # 1 tablet, 0 Refills, Soft Stop, 01/03/22 14:49:00 EDT, [facility], Partial fill upon patient request if the prescription is for a schedule II opioid drug., 160,... Start Date: 01/03/22 Status: Ordereddiltiazem 180 mg/24 hours oral capsule, extended release 180 mg, 1, capsule, By Mouth, Daily, # 30 capsule, Refills 5, Tot. Refills 5, Maintenance, 09/17/21 16:39:00 EDT, Route to Pharmacy Electronically, [facility], 160, cm, 09/15/21 4:30:00 EDT, [...] 1 Refills, Maintenance, 09/17/21 16:40:00 EDT, Patch, [facility], 24 hr Topically Daily, 160, cm, 09/15/21 4:30:00 EDT, Height, 74, kg, 09/13/21 20:36:00 EDT, Dry Weight Start Date: 09/17/21 Status: OrderedPEG-3350 with Electrolytes (Eqv-GoLYTELY) oral powder for reconstitution See Instructions, 1 glass every 15-30 minutes until finished, # 4,000 mL, 0 Refills, Maintenance, 01/08/22 13:55:00 EDT, [facility], Partial fill upon patient request if the prescription is fora schedule II opioid drug., 1 glass every 15-30 m... Start Date: 01/08/22 Status: OrderedSenna 8.8 mg/5 mL oral syrup 10 mL, By Mouth, Daily at bedtime, # 60 mL, 1 Refills, Maintenance, 12/22/21 13:12:00 EDT, [facility], 6, 10 mL By [...] artery Confirmed Active stenosis, left 1neg stress phfe7Vvlapxa Oswestry Disability Index: 58% (26/45; severe disability ); updated [place] Back Pain Disability Scale score: 71 both on 07/20/20 3initial Oswestry Disability Index: 62% ( crippled ) on 06/30/18; initial [place] Back Pain Scale: 81 on goal < 130 smoker, UNo9Yzvg score 0.6 hip, 5.7 other Procedures Procedure Date Related Diagnosis Body Site Status Colonoscopy and extirpation of lesion 01/16/22 Completed of colon Vital Signs Most recent to oldest 1 2 3 [Reference Range]: Height 163 cm (01/16/22 7:20 AM) Oxygen Saturation [94-100 %] 99 % 99 % 99 % (01/16/22 8:54 AM) (01/16/22 8:52 AM) (01/16/22 8:4 6 AM) Pulse Rate [55-90 bpm] 71 bpm (01/16/22 7:20 AM) Blood Pressure [90-138/55-84 mm 135/96 mm Hg 107/54 mm Hg 87/71 mm Hg Hg] (01/16/22 8:54 AM) (01/16/22 8:52 AM) *L* (01/16/22 8:46 AM ) Respiratory Rate [16-30 br/min] 15 br/min 17 br/min 17 br/min *L* (01/16/22 8:52 AM) (01/16/22 8:46 AM) (01/16/22 8:54 AM) Temperature [96.8-100.4 DegF] 96.7 DegF *L* (01/16/22 7:20 AM) Mode of Delivery (Oxygen) Room air Room air Room a ir (01/16/22 8:54 AM) (01/16/22 8:52 AM) (01/16/22 8:4 6 AM) Blood pressure sites Arm, right Arm, right Arm, right (01/16/22 8:54 AM) (01/16/22 8:52 AM) (01/16/22 8:4 6 AM) Temperature Route Temporal (01/16/22 7:20 AM) Dry Weight 73 kg (01/16/22 7:20 AM) Social History Social History Type Response [...] information PersonnelName: Kelsie Oliver Address: Address: [address] [place], [place] [address]
--- OUTSIDE RECORDS SUMMARY | 2022-04-27 19:43 | XMS_ITS | Continuity of Care Document ---
:1955 Author Organization [facility] Address [address] [place] [address]- Care Team Providers Name Role Phone Kelsie Oliver Primary Care Physician Encounter [facility] Date(s): 01/28/20 - 02/27/20 [facility] [address] [place], [place] [address] Allergies, Adverse Reactions, Alerts Substance Reaction Severity [...] 10/12/19 9:33:00 EDT, Route to Pharmacy Electronically, [facility], 160.2, cm, 10/02/19 13:49:00 EDT, Height Start Date: 10/12/19 Stop Date: 04/09/20 Status: OrderedAspirin 81, mg, By Mouth, Daily, 0, 0, 04/12/06 11:40:18, Print RADHA Number, [id number], Constant Indicator Start Date: 04/12/06 Status: OrderedColace [...] EST, Route to Pharmacy Electronically, [facility], Partial fill [...] Maintenance, 10/12/19 9:33:00 EDT, Tablet, [facility], 160.2, cm, 10/02/19 13:49:00 EDT, Height Start Date: 10/12/19 Stop Date: 04/09/20 Status: Orderedlisinopril 40 mg oral tablet 1 tablet = 40 mg, By Mouth, Daily, # 30 tablet, 5 Refills, Maintenance, 10/12/19 9:33:00 EDT, Tablet, [facility], 160.2, cm, 10/02/19 13:49:00 [...] tablet, 0 Refills, Maintenance, 02/15/20 9:14:00 EST, [facility], Partial fill upon patient request., 160.2, cm, 01/22/20 12:42:00 EST, Height Start Date: 02/15/20 Status: OrderedSenna By Mouth, Daily, 0 Refills, Maintenance, 11/11/18 11:53:35 EDT Start Date: 11/11/18 Status: Orderedtopiramate 100 mg oral tablet 1 tablet = 100 mg, By Mouth, Daily at bedtime, # 28 tablet, 5 Refills, Maintenance, 08/25/19 8:09:00EDT, [facility], 160.5, cm, 07/07/19 9:17:00 EDT, [...] Active Vitamin D deficiency(Confirmed) Active 1neg stress iqqs1Sjn back pain DOI 04/08/200825494bjvwiut Oswestry Disability Index: 62% ( crippled ) on 06/30/18; initial [place] Back Pain Scale: 81 on goal < 130 smoker, IRo7prwvyhy point injections-neuro Dr HollowayKrxtpg1nnhk management per Dr Vanesa worthy [place]- iqsij5NLMA NDGWI7BV joint dysfunction status post pzlxfotzw6KWE 05/24 degenerative changes, L5 S1 facet joint inflam-mq41Ocmm score 0.6 hip, 5.7 hrkku50KOKJS-D: 15 on 2ACE score: 6 on 11/11/18 Social History Social History Type Response Smoking Status 10 or more cigarettes (1/2 p ack or more)/day in last 30 days; Type: Cigarettes; Other: 1ppd-1/2ppd; Started at age: 24; entered on: 09/22/18 Sex
--- OUTSIDE RECORDS SUMMARY | 2022-04-27 19:43 | XMS_ITS | Continuity of Care Document ---
:1955 Author Organization [facility] Address [address] [place] [address]- Care Team Providers Name Role Phone Kelsie Oliver Primary Care Physician Encounter [facility] Date(s): 12/21/19 - 01/20/20 [facility] [address] [place] [address]- [facility] Allergies, Adverse Reactions, Alerts Substance Reaction Severity [...] 10/12/19 9:33:00 EDT, Route to Pharmacy Electronically, [facility], 160.2, cm, 10/02/19 13:49:00 EDT, Height Start Date: 10/12/19 Stop Date: 04/09/20 Status: OrderedAspirin 81, mg, By Mouth, Daily, 0, 0, 04/12/06 11:40:18, Print RADHA Number, [id number], Constant Indicator Start Date: 04/12/06 Status: OrderedColace [...] 1 Refills, Maintenance, 10/12/19 9:33:00 EDT, Tablet, [facility], 160.2, cm, 10/02/19 13:49:00 EDT, Height Start Date: 10/12/19 Stop Date: 04/09/20 Status: Orderedlisinopril 40 mg oral tablet 1 tablet = 40 mg, By Mouth, Daily, # 30 tablet, 5 Refills, Maintenance, 10/12/19 9:33:00 EDT, Tablet, [facility], 160.2, cm, 10/02/19 13:49:00 [...] pain., # 112 tablet, 0 Refills, Maintenance, 01/12/20 9:05:00 EDT, [facility], Partial fill upon patient request., 160.2, cm, 12/10/19 9:19:00 EDT, Height Start Date: 01/12/20 Status: OrderedSenna By Mouth, Daily, 0 Refills, Maintenance, 11/11/18 11:53:35 EDT Start Date: 11/11/18 Status: Orderedtopiramate 100 mg oral tablet 1 tablet = 100 mg, By Mouth, Daily at bedtime, # 28 tablet, 5 Refills, Maintenance, 08/25/19 8:09:00EDT, [facility], 160.5, cm, 07/07/19 9:17:00 EDT, [...] Active Vitamin D deficiency(Confirmed) Active 1neg stress boiz7Bio back pain DOI 04/08/200876591gxsobku Oswestry Disability Index: 62% ( crippled ) on 06/30/18; initial [place] Back Pain Scale: 81 on goal < 130 smoker, FEn3cqbpiaf point injections-neuro Dr HollowayQiyolv0bswk management per Dr Alexis [place]- qoruo1DRXF XGJXQ9YN joint dysfunction status post tkvgwfvpe2OPA 05/24 degenerative changes, L5 S1 facet joint inflam-mr20Dmpx score 0.6 hip, 5.7 qkqyf95ZXPSR-Q: 15 on 2ACE score: 6 on 11/11/18 Social History Social History Type Response Smoking Status 10 or more cigarettes (1/2 p ack or more)/day in last 30 days; Type: Cigarettes; Other: 1ppd-1/2ppd; Started at age: 24; entered on: 09/22/18 Sex
--- OUTSIDE RECORDS SUMMARY | 2022-04-27 19:43 | XMS_ITS | Continuity of Care Document ---
:1955 Author Organization [facility] Address Unavailable , Care Team Providers Name Role Phone Kelsie Oliver Primary Care Physician Encounter [facility] Date(s): 09/29/21 - 10/06/21 [facility] Encounter Diagnosis Atrial flutter (Discharge Diagnosis) - 09/29/21 Adrenal adenoma (Discharge Diagnosis) - 09/29/21 Carotid bruit (Discharge Diagnosis) - 09/29/21 Hyponatremia (Discharge Diagnosis) - 09/29/21 B12 deficiency (Discharge Diagnosis) - 09/29/21 Attending Physician: Kelsie Oliver Allergies, Adverse Reactions, Alerts [...] 90 tablet, 1 Refills, 07/24/21 14:35:00 EDT, [facility], 160, cm, 02/16/21 11:16:00 EST, Height, 64, kg, 01/19/21 11:44:00 EDT, Dry Weight Start Date: 07/24/21 Status: Orderedcyanocobalamin 1000 mcg oral tablet 1,000 mcg, 1, tablet, By Mouth, Daily, # 90 tablet, Refills 1, Tot. Refills 1, Maintenance, 09/18/2215:40:00 EDT, Route to Pharmacy Electronically, [facility], 160, cm, 09/15/21 4:30:00 EDT, Height, 74, kg, 09/13/21 20:36:00 EDT, Dry Weight Start Date: 09/17/21 Status: Ordereddiltiazem 180 mg/24 hours oral capsule, extended release 180 mg, 1, capsule, By Mouth, Daily, # 30 capsule, Refills 5, Tot. Refills 5, Maintenance, 09/17/21 16:39:00 EDT, Route to Pharmacy Electronically, [facility], 160, cm, 09/15/21 4:30:00 [...] Active Paroxysmal atrial flutter(Confirmed) Active 1neg stress qosg0Lazlsjy Oswestry Disability Index: 58% (26/45; severe disability ); updated [place] Back Pain Disability Scale score: 71 both on 07/20/20 3initial Oswestry Disability Index: 62% ( crippled ) on 06/30/18; initial [place] Back Pain Scale: 81 on goal < 130 smoker, OVv3Rqjj score 0.6 hip, 5.7 other Diagnosis Diagnosis Type Effective Dates Health Status Clinical In formerly [facility] Service Atrial flutter Discharge 09/29/21 Diagnosis Adrenal adenoma Discharge 09/29/21 Diagnosis Carotid bruit Discharge 09/29/21 Diagnosis Hyponatremia Discharge 09/29/21 Diagnosis B12 deficiency Discharge 09/29/21 Diagnosis Vital Signs Most recent to oldest [Reference Range]: 1 2 Height 160 cm 160 cm (10/03/21 4:40 PM) (09/29/21 9:47 AM) Weight 72.4 kg 72.4 kg (10/03/21 4:40 PM) (09/29/21 9:47 AM) Oxygen Saturation [94-100 %] 97 % (09/29/21 9:47 AM) Pulse Rate [55-90 bpm] 78 bpm (09/29/21 9:47 AM) Body Mass Index [18.5-24.99] 28.28 *H* (09/29/21 9:47 AM) Blood Pressure [90-138/55-84 mm Hg] 134/68 mm Hg (09/29/21 9:47 AM) Blood pressure sites Arm, left (09/29/21 9:47 AM) Weight Obtained Via Standing scale (09/29/21 9:47 AM) Social History Social History Type Response Smoking Status 5-9 cigarettes (between 1/4 to 1/2 pack)/day in last 30 days; Interested in cessation: No; Patient wants NRT during admission Yes entered on: 09/13/21 Sex Female
--- OUTSIDE RECORDS SUMMARY | 2022-04-27 19:43 | XMS_ITS | Continuity of Care Document ---
:1955 Author Organization [facility] Address Unavailable , Care Team Providers Name Role Phone Kelsie Oliver Primary Care Physician Encounter [facility] Date(s): 01/25/21 - 02/24/21 [facility] Allergies, Adverse Reactions, Alerts Substance Reaction [...] 07/12/20 11:52:00 EDT, Route to Pharmacy Electronically, [facility], 160.2, cm, 06/30/20 13:45:00 EDT, Height Start Date: 07/12/20 Stop Date: 01/08/21 Status: OrderedAspirin 81, mg, By Mouth, Daily, 0, 0, 04/12/06 11:40:18, Print RADHA Number, [id number], Constant Indicator Start Date: 04/12/06 Status: Orderedatorvastatin 10 mg oral tablet See Instructions, TAKE ONE TABLET BY MOUTH ONCE DAILY, # 90 tablet, 0 Refills, [facility], 160, cm, 10/31/20 9:48:00 EDT, Height, 66, kg, 08/10/20 13:30:00 EDT, Dry Weight Start Date: 11/04/20 Status: OrderedbuPROPion 100 mg oral tablet 1 tablet = 100 mg, By Mouth, 2 times a day, # 180 tablet, 3 Refills, Maintenance, 02/22/21 8:29:00 EST, Tablet, [facility], Partial fill upon patient request if the prescription is for a schedule II opioid drug., 160, cm, 02/16/21 11:16:00 EST... Start Date: 02/22/21 Status: OrderedControlled Substance Agreement Controlled Substance Agreement, See Instructions, # 1 each, Refills 0, Tot. Refills 0, Maintenance, controlled substance agreement signed 10/16/18 Updated: 07/20/2020 pharmacy [facility] Geraldo dx: mechanical low back pain [...] 02/21/21 16:31:00 EST, Route to Pharmacy Electronically, [facility], Partial fill upon patientrequest if [...] 3 Refills, Maintenance, 02/21/21 17:30:00 EST, Tablet, [facility], Partial fill upon patient request if the prescription is for a schedule II opioid drug., 160, cm, 12/0... Start Date: 02/21/21 Status: Orderednortriptyline 25 mg oral capsule 25 mg, 1, capsule, By Mouth, Daily at bedtime, # 30 capsule, Refills 3, Tot. Refills 3, Maintenance,02/22/21 8:27:00 EST, Route to Pharmacy Electronically, [facility], Partial fill upon patient request if the prescription is for a schedule II... Start Date: 02/22/21 Status: Orderedsenna - oral liquid 10 mL, By Mouth, Daily at bedtime, # 60 mL, 0 Refills, Maintenance, 02/02/21 14:48:00 EST, Liquid, [facility], Partial fill upon patient [...] Active Vitamin D deficiency(Confirmed) Active 1neg stress jtqf9Xij back pain DOI 04/08/200807106Mjzmyvo Oswestry Disability Index: 58% (26/45; severe disability ); updated [place] Back Pain Disability Scale score: 71 both on initial Oswestry Disability Index: 62% ( crippled ) on 06/30/18; initial [place] Back Pain Scale: 81 on goal < 130 smoker, FHx6 trigger point injections-neuro Dr HollowayXnzbxd2iwhz management per Dr Vanesa worthy [place]- slufi6KDEQ DAHWW1NI joint dysfunction status post aybpskjod42WQD 05/24 degenerative changes, L5 S1 facet joint inflam-nj87Krfm score 0.6 hip, 5.7 eqvpx65GHJXM-V: 15 on 3ACE score: 6 on 11/11/18 Social History Social History Type Response Smoking Status Cigars or pipes but not tad y within last 30 days entered on: 07/29/20 Sex Female
--- OUTSIDE RECORDS SUMMARY | 2022-04-27 19:43 | XMS_ITS | Continuity of Care Document ---
:1955 Author Organization [facility] Adult Address [address] [place] [address]- Care Team Providers Name Role Phone Kelsie Oliver Primary Care Physician Encounter [facility] [place] Date(s): 08/08/20 - 09/07/20 [facility] Adult [address] [place] [address]- Allergies, Adverse Reactions, Alerts Substance Reaction Severity [...] 07/12/20 11:52:00 EDT, Route to Pharmacy Electronically, [facility], 160.2, cm, 06/30/20 13:45:00 EDT, Height Start Date: 07/12/20 Stop Date: 01/08/21 Status: OrderedAspirin 81, mg, By Mouth, Daily, 0, 0, 04/12/06 11:40:18, Print RADHA Number, [id number], Constant Indicator Start Date: 04/12/06 Status: OrderedControlled [...] tablet, 1 Refills, Maintenance, 06/29/20 8:06:00 EDT, [facility], 160.2, cm, [...] 1 Refills, Maintenance, 04/09/20 9:33:00 EST, Tablet, [facility], 160.2, cm, 03/24/20 12:29:00 EST, Height Start Date: 04/09/20 Stop Date: 10/06/20 Status: Orderedlisinopril 40 mg oral tablet 1 tablet = 40 mg, By Mouth, Daily, 1/2 tab daily, # 30 tablet, 1 Refills, Maintenance, 07/12/20 11:52:00 EDT, Tablet, [facility], 160.2, cm, 06/30/20 13:45:00 EDT, Height Start Date: 07/12/20 Stop Date: 09/29/20 Status: OrderedLyrica 50 mg oral capsule 1 capsule = 50 mg, By Mouth, 3 times a day, # 42 capsule, 1 Refills, Maintenance, 08/19/20 14:28:00 EDT, Capsule, [facility], Partial fill upon patient request if the prescription is for a schedule II opioid drug., 160, cm, 08/18/20 15:42:00 E... Start Date: 08/19/20 Stop Date: 09/16/20 Status: OrderedMOM Liquid By Mouth, Daily at bedtime, 0 Refills, Maintenance, 12/10/19 9:14:00 EDT Start Date: 12/10/19 Status: OrderedtraZODone 50 mg oral tablet 25 mg, 0.5, tablet, By Mouth, Daily at bedtime, # 15 tablet, Refills 3, Tot. Refills 3, Maintenance,08/08/20 10:06:00 EDT, Route to Pharmacy Electronically, [facility], Discontinue Cymbalta, 160, cm, 08/08/20 9:24:00 EDT, Height, 67.9, kg, 05... Start Date: 08/08/20 Stop Date: 12/06/20 Status: OrderedValium 5 mg oral tablet 5 mg, 1, tablet, By Mouth, 2 times a day, PRN, for 14 days, # 28 tablet, Refills 1, Tot. Refills 1, Acute 09/16/20 14:28:00 EDT, Pain , Severe, 08/19/20 14:28:00 EDT, Route to Pharmacy Electronically, [facility], Partial fill upon patient requ... [...] Active Vitamin D deficiency(Confirmed) Active 1neg stress [id number] back pain DOI 04/08/[id number] Oswestry Disability Index: 58% (26/45; severe disability ); updated [place] Back Pain Disability Scale score: 71 both on initial Oswestry Disability Index: 62% ( crippled ) on 06/30/18; initial [place] Back Pain Scale: 81 on goal < 130 smoker, FHx6 trigger point injections-neuro Dr HollowayWenaov6shok management per Dr Alexis colusa- [id number] joint dysfunction status post [id number] 05/24 degenerative changes, L5 S1 facet joint inflam-ci27Zhnz score 0.6 hip, 5.7 [id number]: 15 on 3ACE score: 6 on 11/11/18 Social History Social History Type Response Smoking Status Cigars or pipes but not tad y within last 30 days entered on: 07/29/20 Sex
--- OUTSIDE RECORDS SUMMARY | 2022-04-27 19:44 | XMS_ITS | Continuity of Care Document ---
:[address] [facility] Adult Address Unavailable , Care Team Providers Name Role Phone Kelsie Oliver Primary Care Physician Encounter [facility] [place] Date(s): 12/27/20 - 01/26/21 [facility] Allergies, Adverse Reactions, Alerts Substance [...] 11:52:00 EDT, Route to Pharmacy Electronically, [facility], 160.2, cm, 06/30/20 13:45:00 EDT, Height Start Date: 07/12/20 Stop Date: 01/08/21 Status: OrderedAspirin 81, mg, By Mouth, Daily, 0, 0, 04/12/06 11:40:18, Print RADHA Number, [id number], Constant Indicator Start Date: 04/12/06 Status: Orderedatorvastatin 10 mg oral tablet See Instructions, TAKE ONE TABLET BY MOUTH ONCE DAILY, # 90 tablet, 0 Refills, [facility], 160, cm, 10/31/20 9:48:00 [...] agreement signed 10/16/18 Updated: 07/20/2020 pharmacy Jemal Alberto Chow dx: mechanical low back pain M54.5, [...] 1 Refills, Maintenance, 07/12/20 11:52:00 EDT, Tablet, [facility], 160.2, cm, 06/30/20 13:45:00 [...] Active Vitamin D deficiency(Confirmed) Active 1neg stress ghkr0Poh back pain DOI 04/08/200886596Hssgdfz Oswestry Disability Index: 58% (26/45; severe disability ); updated [place] Back Pain Disability Scale score: 71 both on initial Oswestry Disability Index: 62% ( crippled ) on 06/30/18; initial [place] Back Pain Scale: 81 on goal < 130 smoker, FHx6 trigger point injections-neuro Dr HollowayWguaue2qsoj management per Dr Vanesa worthy eaton- [id number] joint dysfunction status post [id number] 05/24 degenerative changes, L5 S1 facet joint inflam-hz11Gpcl score 0.6 hip, 5.7 [id number]: 15 on 3ACE score: 6 on 11/11/18 Social History Social History Type Response Smoking Status Cigars or pipes but not tad y within last 30 days entered on: 07/29/20 Sex Female
--- OUTSIDE RECORDS SUMMARY | 2022-04-27 19:44 | XMS_ITS | Continuity of Care Document ---
:1955 Author Organization [facility] Address [address] [place] [address]- Care Team Providers Name Role Phone Kelsie Oliver Primary Care Physician Encounter [facility] Date(s): 10/19/21 - 11/18/21 [facility] [address] [place], [place] [address] Attending Physician: AdmBrenton alvarez Admitting Physician: AdmtrBrenton Referring Physician: Admtr, James8 Allergies, Adverse Reactions, Alerts Substance Reaction Severity Status doxycycline rash Active tetracycline red blotches Persistent Moderate Active penicillin rash Active Flexeril rash Active Cymbalta Active nonsteroidal anti-inflammatory agents [D]Wheezing Active sulfa drugs Active Immunizations Given and [...] 90 tablet, 1 Refills, 07/24/21 14:35:00 EDT, [facility], 160, cm, 02/16/21 11:16:00 EST, Height, 64, kg, 01/19/21 11:44:00 EDT, Dry Weight Start Date: 07/24/21 Status: Orderedcyanocobalamin 1000 mcg oral tablet 1,000 mcg, 1, tablet, By Mouth, Daily, # 90 tablet, Refills 1, Tot. Refills 1, Maintenance, 09/18/2215:40:00 EDT, Route to Pharmacy Electronically, [facility], 160, cm, 09/15/21 4:30:00 EDT, Height, 74, kg, 09/13/21 20:36:00 EDT, Dry Weight Start Date: 09/17/21 Status: Ordereddiltiazem 180 mg/24 hours oral capsule, extended release 180 mg, 1, capsule, By Mouth, Daily, # 30 capsule, Refills 5, Tot. Refills 5, Maintenance, 09/17/21 16:39:00 EDT, Route to Pharmacy Electronically, [facility], 160, cm, 09/15/21 4:30:00 [...] Active Paroxysmal atrial flutter(Confirmed) Active 1neg stress [id number] Oswestry Disability Index: 58% (26/45; severe disability ); updated [place] Back Pain Disability Scale score: 71 both on 07/20/20 3initial Oswestry Disability Index: 62% ( crippled ) on 06/30/18; initial [place] Back Pain Scale: 81 on goal < 130 smoker, KBk6Mcsc score 0.6 hip, 5.7 other Social History Social History Type Response Smoking Status 5-9 cigarettes (between 1/4 to 1/2 pack)/day in last 30 days; Interested in cessation: No; Patient wants NRT during admission Yes entered on: 09/13/21 Sex Female Care Team PersonnelName: Kelsie Oliver Address: [address], [place] [address]
--- OUTSIDE RECORDS SUMMARY | 2022-04-27 19:44 | XMS_ITS | Continuity of Care Document ---
:1955 Author Organization [facility] Address [address] [place] [address]- Care Team Providers Name Role Phone Kelsie Oliver Primary Care Phys[place] [facility] [place] 03/10/[address] [id number] Discharge Disposition: A-D/C Home Attending Physician: Jena Linn MD Admitting Physician: García Juárez MD Referring Physician: García Juárez MD Allergies, Adverse Reactions, Alerts Substance Reaction Severity Status doxycycline rash Active tetracycline red blotches Persistent Moderate Active penicillin rash Active sulfa drugs Active Flexeril rash Active nonsteroidal anti-inflammatory agents [D]Wheezing Active Adhesive Bandage Active Cymbalta Active Immunizations Given and Recorded Vaccine Date Status Refusal Reason influenza virus vaccine, inactivated 03/06/22 Given [id number] bivalent booster vax 12/13/21 Recorde d SARS-CoV-2 [...] EST, Dry Weight Start Date: 02/09/22 Status: OrderedEliquis 5 mg oral tablet 1 [...] II opioid drug. Start Date: 03/06/22 Status: OrderedoxyCODONE 5 mg oral tablet 10 mg, 2, tablet, By Mouth, Every 6 hours, PRN, Refills 0, Tot. Refills 0, Maintenance, Pain , Moderate, 03/10/22 11:18:00 EST, Partial fill upon patient request if the prescription is for a schedule II opioid drug. Start Date: 03/10/22 Status: OrderedoxyCODONE 5 mg oral tablet 10 mg, Tablet, By Mouth, Every 6 hours, Hold for sedation, do not give within 1 hour of lorazepam, PRN for Pain , Moderate, Routine, 03/06/22 0:59:00 EST Start Date: 03/06/22 Stop Date: 03/13/22 Status: OrderedSenna 8.8 mg/5 mL oral syrup 10 mL, By Mouth, Daily at bedtime, # 900 mL, 3 Refills, Maintenance, 01/18/22 13:14:00 EDT, [facility], 10 mL By Mouth Daily at bedtime, 163, cm, 01/16/22 7:20:00 EDT, Height, 73, kg, 01/16/22 7:20:00 EDT, Dry Weight Start Date: 01/18/22 Status: OrderedTylenol 325 mg oral tablet 650 mg, Tablet, By Mouth, Every 6 hours, PRN for Pain , Mild, do not exceed 4000mg in one day, Routine, 03/06/22 0:59:00 EST Start Date: 03/06/22 Stop Date: 04/04/22 Status: Ordered Problem List Condition Confirmation Course [...] adenocarcinoma of upper lobe of left lung ([id number]) Subclavian artery Confirmed Active stenosis, left Tubular adenoma of Confirmed Active colon 1neg stress [id number] Oswestry Disability Index: 58% (26/45; severe disability ); updated [place] Back Pain Disability Scale score: 71 both on 07/20/20 3initial Oswestry Disability Index: 62% ( crippled ) on 06/30/18; initial [place] Back Pain Scale: 81 on goal < 130 smoker, [id number] score 0.6 hip, 5.7 other Results Radiology Reports Exam Date Time Procedure Performing Provider Status 03/08/22 10:22 AM US Abdomen Ltd Carabine , Kay; Auth (Verif ied) Notes:(US Abdomen Ltd) Reason For Exam: abdominal pain;Other:RESULT: US Abdomen Ltd Portable US Abdomen Ltd Reason: Right upper quadrant abdominal pain. Clinical Question(s): Cholecystitis. COMPARISON: CT abdomen 01/12/2022 FINDINGS: Liver: Coarse hepatic echotexture. No suspicious lesion. Smooth hepatic contour. Main portal vein patent with normal hepatopetal direction of flow. Gallbladder: No gallstones. Normal wall thickness. No pericholecystic fluid. Negative Wolff sign. Biliary Tree: No intrahepatic or extrahepatic bile duct dilation is identified. Common duct measures: 0.6 cm. IMPRESSION: No evidence of cholelithiasis or acute cholecystitis. I have personally reviewed the images and I agree with this report. WSN: [id number] Ordering Physician: Kendall Rogel Dictated By: Adamaris Dunlap DO Dictated Date/Time: 03/08/22 11:19 a Reviewed By: Siddhartha Hong MD Signed By: Siddhartha Hong MD Signed Date/Time: 03/08/22 11:24 am Transcribed By: SHAHNAZ Transcribed Date/Time: 03/08/22 11:17 am Exam Date Time Procedure Performing Provider Status 03/07/22 8:48 PM US Doppler Ext Lower Venous Shadia Leblanc; Betina uth (Verified) Bilat Notes:(US Doppler Ext Lower Venous Bilat) Reason For Exam: Pain/Tenderness ExtremitiesRESULT: US Doppler Ext Lower Venous Bilat US Doppler Ext Lower Venous Bilat Reason: Pain Tenderness Extremities; Clinical Question(s): Thrombosis COMPARISON: None IMAGING TECHNIQUE: Streamlined portable ultrasound of the lower extremity deep venous system was performed using grayscale, color, and spectral Doppler ultrasound from the common femoral through the popliteal vein assessing for complete compressibility and good response to compression and augmentation. The calf veins are not assessed. FINDINGS: RIGHT LOWER EXTREMITY: Common femoral vein: Patent. No thrombosis. Femoral vein: Patent. No thrombosis. Popliteal vein: Patent. No thrombosis. LEFT LOWER EXTREMITY: Common femoral vein: Patent. No thrombosis. Femoral vein: Patent. No thrombosis. Popliteal vein: Patent. No thrombosis. OTHER FINDINGS: None. IMPRESSION: No evidence of deep venous thrombosis from the groin through the popliteal vein. Calf veins not assessed with portable technique. WSN: [id number] Ordering Physician: Yolanda Mckinnon Dictated By: Ja Giron MD Dictated Date/Time: 03/07/22 9:30 pm Reviewed By: Ja Giron MD Signed By: Ja Giron MD Signed Date/Time: 03/07/22 9:30 pm Transcribed By: SHAHNAZ Transcribed Date/Time: 03/07/22 9:30 pm Vital Signs Most recent to oldest 1 2 3 [Reference Range]: Height 159 cm 159 cm (03/06/22 5:10 AM) (03/05/22 11:40 PM) Weight 69.9 kg 73 kg (03/10/22 5:00 AM) (03/05/22 11:40 PM) Oxygen Saturation [94-100 99 % 100 % 97 % %] (03/10/22 12:00 PM) (03/10/22 8:38 AM) (03/10/22 4:00 AM) Pulse Rate [55-90 bpm] 62 bpm 68 bpm 72 bpm (03/10/22 4:00 AM) (03/10/22 12:00 AM) (03/09/22 8:00 PM) Body Mass Index 28.88 kg/m2 [18.5-24.99 kg/m2] *H* (03/05/22 11:40 PM) Blood Pressure 135/61 mm Hg 147/61 mm Hg 114/54 mm Hg [90-138/55-84 mm Hg] (03/10/22 12:00 PM) *H* ( 4:00 AM) (03/10/22 8:38 AM) Respiratory Rate [16-30 21 br/min 24 br/min 13 br/mi n br/min] (03/10/22 2:08 PM) (03/10/22 12:00 PM) *L* (03/10/22 12:00 PM) Temperature [96.8-100.4 98 DegF 97.7 DegF 98.1 Deg F DegF] (03/10/22 12:00 PM) (03/10/22 8:38 AM) (03/10/22 4:00 AM) Mode of Delivery (Oxygen) Room air Room air Room a ir (03/10/22 12:00 PM) (03/10/22 8:38 AM) (03/10/22 4:00 AM) Blood pressure sites Arm, left Arm, left Arm, right (03/10/22 4:00 AM) (03/10/22 12:00 AM) (03/09/22 8:00 PM) Temperature Route Oral Oral Oral (03/10/22 12:00 PM) (03/10/22 8:38 AM) (03/10/22 4:00 AM) Dry Weight 72.9 kg 73 kg (03/07/22 11:42 AM) (03/05/22 11:40 PM) Weight Obtained Via Bed scale (03/10/22 5:00 AM) Dry Weight Obtained Via Bed scale (03/07/22 11:42 AM) Social History Social History Type Response Smoking Status Use: 4 or less cigarettes(le ss than 1/4 pack)/day in last 30 days; Former smoker, quit more than 30 days ago; Other: QUIT 2 WEEKS AGO (01/17/2022); PRIOR TO THAT WAS ONLY 2-3 CIG/D X AGE 22; entered on: 01/31/22 Sex Female Note Jasmin Key RN: PERFORM Event Display: Discharge/Transfer Note Hospital Authored Date: [id number] Nursing Discharge Note Entered On: 03/10/2022 14:31 EST Performed On: 03/10/2022 14:29 EST by Jasmin Key RN Nursing Discharge Note 2 Discharge Time : 03/10/2022 14:29 EST Discharge Level of Care at Discharge : Inpatient Rehab Facility/Unit Name of Receiving [facility] Discharge Nursing Homes/Rehab Facilities : [facility] Left Unit Via : Ambulance Patient Accompanied Off Unit with : Ambulance/Chair Van Personnel Handover Given to Transport Personnel : Yes DC Instructions Provided & Signed by Pt : Yes Patient Understands D/C Instructions : Yes Patient Instructions Discharge Signed : Yes Did Pt have Specialty Bed or Wound Vac : No Jasmin Key RN - 03/10/2022 14:29 EST Caregiver Notification Patient has a Designated Caregiver : Yes Name of Caregiver : LASHAY Caregiver Relationship : Significant Other/Partner Caregiver Home Phone/Work Phone : SEE CHART - NOTIFIED BY Jasmin Ye RN - 03/10/2022 14:29 Maddison Wallace MD: PERFORM Event Display: Discharge/Transfer Note Hospital Authored Date: Patient: ??PRATIBHA ROSSI ? Age:??67 Years?Sex:??Female?:??1955?? 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 _ Discharge Medications Acetaminophen?975?Milligram?By Mouth?3 times a day?as needed?Pain , Moderate apixaban (Eliquis 5 mg oral tablet)?1?tab(s)?5?Milligram?By Mouth?2 times a day Atorvastatin (atorvastatin 10 mg oral tablet)?See Instructions?TAKE ONE TABLET BY MOUTH ONCE DAILY Gabapentin (gabapentin 100 mg oral capsule)?100?Milligram?1?capsule?By Mouth?3 times a day Lidocaine Topical (lidocaine 5% topical film)?Topically?Daily Lorazepam (LORazepam 0.5 mg oral tablet)?1?tab(s)?0.5?Milligram?By Mouth?2 times aday?as needed?as needed for anxiety Mirtazapine (mirtazapine 7.5 mg oral tablet)?1?tab(s)?7.5?Milligram?By Mouth?Dailyat bedtime Oxycodone (oxyCODONE 5 mg oral tablet)?10?Milligram?2?tablet?By Mouth?Every 6 hours?as needed?Pain , Moderate Polyethylene Glycol 3350 (MiraLax Powder)?1?pack/packet?17?gram?By Mouth?Daily Senna (Senna 8.8 mg/5 mL oral syrup)?10?Milliliter?By Mouth?Daily at bedtime ? Medications Started None Medications Discontinued Diltiazem Doses Changed Oxycodone from 5 mg to 6 mg Future Appointments Saturday 3:15 PM EST ?? With: Wen BLANCHARD, Cher Moffett Where: [facility] [address] [place] [address]- Hospital Course 67yo woman with a history of hypertension, hyperlipidemia, atrial flutter, chronic hyponatremia, lumbar spinal stenosis, fibromyalgia who presented as a a transfer from [facility]. She was diagnosed with subclavian steal syndrome with left upper weakness and was undergoing work-upwhen she was found to have a left lung mass that eventually was diagnosed as invasive adenocarcinoma. She was started on radiation therapy (02/15 - 02/28). She re-presented with 1 week right side chest?? pain and 1 day left side pain. Developed LUE weakness for which she was brought to [facility] asa code stroke. CT chest showed interval??decrease in size of MERVIN mass, unchanged adrenal nodules, and enlarged pulmonary arteries suggestive of pulmonary hypertension.??CTH non-acute and CTA head / neck showed occluded left subclavian artery, occluded V1??ad proximal V2 segments of left vertebral artery, moderate stenosis of left proximal ICA, and mild stenosis of right proximal ICA. Due to these findings neurology recommended transfer to [facility] for MRI brain (only showed chronic small vessel disease) and possible subclavian stent. Underwent stent placement??on 03/08??with some subsequent bleeding but adequate hemostasis after fem-stop placed. ??She was subsequently transferred to the ICU for every neurochecks. ICU course was uncomplicated??with??improvement in patient's pain??and weakness. Objective ?? #Subclavian Steal s/p Stent #Chest Wall Pain #Chronic Back Pain #Fibromyalgia #Anxiety Patient with LUE weakness on presentation attributed to subclavian steal s/p stent insertion CTA imaging of chest Interval decrease size of left upper lobe biopsy proven the 1 cm adenocarcinoma, previously 1.5 cm.??CTA of neck The left subclavian artery is occluded from the segment of approximately 2 cm above its origin. This appears progressed since prior study. Underwent IR-guided stent placement on 03/07/22 with no complications. Transferrred to the ICU for q1 neurochecks albert 24 hrs. Elliquis subsequently resumed. ?? Plan: - Continue Tylenol, oxycodone PRN - Oxy dose increased to 10 mg - Continue topical lidocaine (adhesive allergy so no patch) - Neuro checks q1h - if stable can wean to q2h per neurointerventional team - Continue Plavix - Resume Eliquis - Continue home lorazepam PRN and mirtazapine ?? #Hyponatremia, resolved Urine sodium is <20, most likely hypovolemic. ?? Plan: - Encourage PO intake - Monitor urine output ?? Resolved/Chronic medical condition: #Lung Cancer: Continue to monitor #H/o Paroxysmal Aflutter: Holding home dilt due to soft BP, resume Eliquis #HLD:??Continue home statin??67yo woman with a history of hypertension, hyperlipidemia, atrial flutter, chronic hyponatremia, lumbar spinal stenosis and fibromyalgia. She was diagnosed with subclavian steal syndrome with left upper weakness and was undergoing work-up when she was found to have a left lung mass that eventually was diagnosed as invasive adenocarcinoma. Presented with??weakness and bilateral side pain, s/p subclavian stent placement. Transferred to ICU for q1 neuro checks. Now stable and planned for transfer. ?? #Subclavian Steal s/p Stent #Chest Wall Pain #Chronic Back Pain #Fibromyalgia #Anxiety Patient with LUE weakness on presentation attributed to subclavian steal s/p stent insertion CTA imaging of chest Interval decrease size of left upper lobe biopsy proven the 1 cm adenocarcinoma, previously 1.5 cm.??CTA of neck The left subclavian artery is occluded from the segment of approximately 2 cm above its origin. This appears progressed since prior study. Underwent IR-guided stent placement on 03/07/22 with no complications. Transferrred to the ICU for q1 neurochecks albert 24 hrs. Elliquis subsequently resumed. ?? Recommendations: - Continue Tylenol, oxycodone PRN - Continue topical lidocaine (adhesive allergy so no patch) - Continue Plavix - Resume Eliquis - Continue home lorazepam PRN and mirtazapine ?? #Hyponatremia, resolved Urine sodium is <20, most likely hypovolemic. ?? Recommendations: - Encourage PO intake - Monitor urine output ?? Resolved/Chronic medical condition: #Lung Cancer: Continue to monitor, follow up with patient's onc #H/o Paroxysmal Aflutter: Holding home dilt due to soft BP, resume Eliquis #HLD:??Continue home statin #RUQ pain: RUQ with no evidence of cholelithiasis #Leg Swelling: No evidence of DVT. Resume Eliquis ? Quality Measures Code: Full ?? This patient was discussed with ?? Maddison Villareal MD PGY-2 Internal Medicine Cortext / pg#[id number] . Physical Exam Recent Vital Signs Temperature: 97.7 DegF (03/10/22 08:38:00) Pulse Rate: 62 bpm (03/10/22 04:00:00) Respiratory Rate:??12 br/min??Low (03/10/22 09:40:00) Systolic Blood Pressure:??147 mm Hg??High (03/10/22 08:38:00) Diastolic Blood Pressure: 61 mm Hg (03/10/22 08:38:00) Oxygen Saturation: 100 % (03/10/22 08:38:00)? General Appearance: The patient is well??and in NAD. Cardiovascular: RRR S1 and S2 heard with no M/R/G. No JVD. Respiratory: ??Breath sounds clear to auscultation bilaterally. No wheezing. Good air movement throughout both lungs. GI: Soft. tenderness in the right groin and right lower quadrant. Has ecchymoses around previous site of??femoral??access.?? MS: ??No edema or erythema in the lower extremities. No wounds seen on the feet. Peripheral sensation intact.?? Neuro: ??No slurred speech. ??Patient seen moving their upper and lower extremities independently. Psych: Alert and oriented x3. Appropriate and pleasant. CAM negative. Lines: Peripheral IV in place.?? Consultants ??Dr. Epstein: IR Follow-Up Appointments Added Follow Up ?Time Frame ?Comments Jagjit WEAVER, Kelsie Parks?3-5 day: call to discuss follow up visit?Please schedule an appointment to follow-up. Patient Instructions You were admitted to the hospital after you developed left upper extremity weakness.?? You are foundto have a condition called left subclavian steal syndrome.?? You are treated by placing a stent??by interventional radiology. Your symptoms of breath significantly. PT evaluated and recommended going to rehab. Please??get him an appointment with your PCP to discuss inpatient??admission. Please follow-up with your outpatient oncologist. Results Discharge Labs BLOOD COUNT & DIFF WBC 4.8 k/mm3 ()?? 03/10/2022 05:00 RBC 3.02 m/mm3 (Low)?? 03/10/2022 05:00 Hgb 10.0 Gm/dL (Low)?? 03/10/2022 05:00 Hct 30.7 % (Low)?? 03/10/2022 05:00 MCV 101.7 femtoliters (High)?? 03/10/2022 05:00 MCH 33.1 pg ()?? 03/10/2022 05:00 MCHC 32.6 g/dL (Low)?? 03/10/2022 05:00 Platelet Count 225 k/mm3 ()?? 03/10/2022 05:00 RDW-SD 48.7 femtoliters (High)?? 03/10/2022 05:00 MPV 8.8 femtoliters (Low)?? 03/10/2022 05:00 Nucleated RBC (Automated) 0.0 #/100 WBC'S ()?? 03/10/2022 05:00 Abs. NRBC 0.0 k/mm3 ()?? 03/10/2022 05:00 Abs. Neut 4.8 k/mm3 ()?? 03/08/2022 05:59 Abs. Lymph 0.5 k/mm3 (Low)?? 03/08/2022 05:59 Abs. Donley 0.4 k/mm3 ()?? 03/08/2022 05:59 Abs. Eo 0.0 k/mm3 ()?? 03/08/2022 05:59 Abs. Baso 0.0 k/mm3 ()?? 03/08/2022 05:59 Neut % 83.7 % (High)?? 03/08/2022 05:59 Lymph % 9.1 % (Low)?? 03/08/2022 05:59 Donley % 6.1 % ()?? 03/08/2022 05:59 Eos % 0.2 % ()?? 03/08/2022 05:59 Baso % 0.2 % ()?? 03/08/2022 05:59 Imm Gran 0.7 % ()?? 03/08/2022 05:59 Abs. Imm Gran 0.0 k/mm3 ()?? 03/08/2022 05:59 ?? CHEM GENERAL Sodium 135 mmol/L ()?? 03/10/2022 05:00 Potassium 4.1 mmol/L ()?? 03/10/2022 05:00 Chloride 101 mmol/L ()?? 03/10/2022 05:00 Bicarbonate Level 24 mmol/L ()?? 03/10/2022 05:00 Anion Gap 10 ()?? 03/10/2022 05:00 Glucose Level 127 mg/dL (High)?? 03/08/2022 05:59 BUN 11 mg/dL ()?? 03/10/2022 05:00 Creatinine-Blood 0.7 mg/dL ()?? 03/10/2022 05:00 Estimated GFR Creatinine 96 ML/MIN/1.73 M2 ()?? 03/10/2022 05:00 Osmolality 267 mOs/kg (Low)?? 03/07/2022 04:15 Calcium 8.5 mg/dL (Low)?? 03/08/2022 05:59 Magnesium 2.2 mg/dL ()?? 03/08/2022 05:59 Protein, Total 4.9 Gm/dL (Low)?? 03/09/2022 04:40 Albumin 3.4 Gm/dL ()?? 03/09/2022 04:40 Alkaline Phosphatase 80 units/L ()?? 03/09/2022 04:40 AST (SGOT) 29 units/L ()?? 03/09/2022 04:40 ALT (SGPT) 22 units/L ()?? 03/09/2022 04:40 Bilirubin, Total <0.2 mg/dL ()?? 03/09/2022 04:40 Bilirubin, Direct <0.2 mg/dL ()?? 03/09/2022 04:40 Bilirubin, Indirect Total bilirubin is less than the measureable limit. Therefore, indirect mg/dL ()?? 03/09/2022 04:40 ?? ENDOCRINE/TUMOR MARKER TSH 2.08 uIU/mL ()?? 03/07/2022 04:15 Cortisol Level 1.7 ??g/dL ()?? 03/08/2022 05:59 ?? URINE OTHER Sodium, Urine Random <20 mmol/L ()?? 03/08/2022 14:28 Osmolality, Urine Random 209 mOsm/kg ()?? 03/08/2022 14:28 ?? VIROLOGY COVID-19 PCR Specimen Source NASAL ()?? 03/08/2022 05:13 COVID-19 PCR Result NEGATIVE ()?? 03/08/2022 05:13 ?? francisco For Exam Stroke;Other: ?? RESULT: CT Chest W/ Contrast CT Chest W/ Contrast? INDICATION: Hx of Present Illness: L sided chest pain starting @ 3am. Had radiation Saturday on L chest for lung cancer. Pain under R scalpula. L sided weakness in arms and L. Normal for weakness on Larm due to blockage; Reason: Other:; Stroke; Clinical Question(s): CHF ?? TECHNIQUE: Helical CT scan of the chest with IV contrast, formatted in 3 planes. 75 cc of Omnipaque 300 was administered intravenously. Weight-based protocol was performed using automatic exposure control.? COMPARISON: 01/17/2022, PET CT 12/28/2021, MR abdomen 10/08/2021. ?? FINDINGS:? Brake Drum Lathe Operator view findings, lines and tubes: None. ?? Trachea and airways: Patent without evidence of tracheal or endobronchial lesion. ?? Lungs and pleura: Decreased size of left upper lobe biopsy-proven 1 x 0.8 cm adenocarcinoma, previously 1.5 x 0.8 cm. Interval decrease in the triangular nodule along the left fissure, series 5, image 54, which may reflect an intrapulmonary lymph node. No new pulmonary nodules identified. Mild bibasilar atelectasis. No effusion or pneumothorax. ?? Mediastinum and irina: No mass or hematoma. No mediastinal or hilar lymphadenopathy. No esophageal abnormality. Partially imaged thyroid is unremarkable. ?? Heart: Heart is normal in size. No pericardial effusion. Severe coronary artery calcification. ?? Aorta: Severe atherosclerotic vascular calcification but no aneurysm. ?? Pulmonary arteries: The main pulmonary artery is dilated to 3.8 cm. Moderate respiratory motion artifact decreases sensitivity, but there is no evidence of pulmonary embolism on this study performed without angiographic technique. ?? Chest wall soft tissues: No acute abnormality. ?? Diaphragm: Intact. ?? Upper abdomen: Unchanged left adrenal 1.8 cm and right adrenal 2.2 cm low- attenuation nodules. Thesedemonstrated the mild activity on the PET CT 12/28/2021 and are consistent with lipid rich adenomas on CT abdomen 01/12/2022. Subcentimeter low-attenuation lesion within the hepatic segment 2 correlates with a T2 hyperintense lesion on MR abdomen 10/08/2021 and likely represents a simple cyst. ?? Bones: No acute abnormality. ?? IMPRESSION: ?? 1. ??Interval decrease size of left upper lobe biopsy proven the 1 cm adenocarcinoma, previously 1.5cm.?? 2. ??Unchanged bilateral adrenal nodules. 3. ??Enlarged pulmonary arteries which can be seen with pulmonary hypertension. ?? Reason For Exam Aneurysm, neck vessel(s);Other: ?? RESULT: CT Angio Neck CT Angio Head, CT Angio Neck ?? Hx of Present Illness: L sided chest pain starting @ 3am. Had radiation Saturday on L chest for lung cancer. Pain under R scapula. L sided weakness in arms and L. Normal for weakness on L arm due to blockage; Reason: Other:; Stroke; Clinical Question(s): Other:; Hematoma Aneurysm / Other: ?? TECHNIQUE: CT angiogram of the head and neck was performed after bolus administration of intravenouscontrast. 75 mL of Omnipaque 300 was administered intravenously. Coronal and sagittal MIP reformatted images were obtained. Additional 3-D images were created on a separate workstation under concurrent supervision by the attending radiologist. All stenoses are measured using NASCET criteria. Weight-based protocol using automatic tube modulation was used to optimize exposure parameters.? RADIATION DOSE PARAMETERS:? CTDIvol Body: 9.71 mGy, ??DLP Body: 1031 mGy*cm. ? COMPARISON: Noncontrast CT head performed concurrently and prior CTAs on 12/11/2021. ?? FINDINGS:? There is a 3 vessel arch. Mural calcified and noncalcified atherosclerotic plaques are seen along the visualized aortic arch and the supraaortic proximal great neck vessels. The right innominate arteryorigin is degraded by beam hardening artifacts. The focal area of severe stenosis at the origin seenon prior study could not be visualized on current study. The origin of the right subclavian artery has a focal area of moderate stenosis. The left proximal subclavian artery has multiple mural calcifications. No flow is seen at the segment of 2 cm above its origin consistent with an occlusion, progressed since prior study. ?? The right common carotid artery is normal in caliber. The right carotid bulb has mural calcifications extending to the right proximal internal carotid artery. The right proximal ICA shows 20% stenosis by NASCET criteria.? The left common carotid artery is normal in caliber. The left carotid bulb has mural calcifications extending to the left proximal internal carotid artery. The left proximal ICA shows 50% stenosis by NASCET criteria.? Right vertebral artery: Dominant. Patent without stenosis. ?? Left vertebral artery: The V1 and proximal V2 segments are not visualized consistent an occlusion, new since prior study. The more distal cervical segments are patent without stenosis. ?? Cervical spine: Mild spondylosis. No acute pathology. ?? Soft tissues and lung apices: The 1 cm spiculated nodule in the visualized left upper lobe is again seen, consistent with patient's history of malignancy. Mild dependent atelectasis is noted the bilaterally. Bilateral thyroid lobes are normal. There is no definite abnormality throughout the soft tissue neck. ? [place] [employer] [place]: Concurrent CT of head showed no acute pathology.? Bilateral internal carotid arteries at the skull base have mural calcifications. No definite stenosis is seen. Bilateral posterior communicating arteries are not visualized. No posterior communicating artery aneurysm is seen. ?? Bilateral ACAs, MCAs and their branches are patent. No stenosis or vessel cut off is seen. No definite aneurysm is noted. ?? Bilateral intracranial vertebral arteries are normal in calibers. No definite stenosis is seen. The vertebrobasilar junction is normal. The basilar artery is normal. ??No stenosis or dissection is seen. There is no basilar tip aneurysm. 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 ?? The superior sagittal sinuses, the straight sinus, bilateral transverse and sigmoid sinuses: Patent without dural sinus thrombosis. ?? IMPRESSION: ?? No cutoff or high-grade stenosis of the major branches of the intracranial arteries. ??No aneurysm, stenosis, or vascular malformations present.? The right proximal internal carotid artery show 20% % stenosis by NASCET criteria. ?? The left proximal internal carotid artery show 50% stenosis by NASCET criteria. ?? The right cervical vertebral artery shows no significant stenosis.? The left subclavian artery is occluded from the segment of approximately 2 cm above its origin. Thisappears progressed since prior study. ?? The V1 and proximal V2 segments of the left vertebral artery are not visualized consistent with an occlusion, new since prior. The rest shows no significant stenosis. ? REFERENCE:? NASCET Criteria: ? The degree of internal carotid stenosis is based on NASCET Criteria:? Normal: No stenosis? Mild: Less than 50% stenosis ?? Moderate: 50-69% stenosis ?? Severe: 70-99% stenosis ?? Total occlusion: No detectable patent lumen. ? The preliminary report was given by Sakshi. The occlusion of the left subclavian artery and the left proximal vertebral arteries were not mentioned in the report. ?? Reason For Exam Hemiparesis, infarction;Hemiparesis, infarction ?? RESULT: MRI Brain W/O Contrast [facility] MRI at [facility], [facility] ?? VISIT NUMBER ?:[id number] ?? Patient Name: Pratibha Rossi ?? Date of : 1955 ?? Date of Exam: 03-05-2022 ?? Referring Physician: Fatemeh Lacy ?[facility] ?[address] ?[place] [address] ?? Exam: MR Brain (C-) CPT 91128 ?? Room Description: [facility] 1.5 ?? MRI of the brain without contrast. ?? HISTORY: Headaches. Left-sided numbness. Syncope. Bilateral tinnitus. Recent diagnosis of lung cancer. ?? COMPARISON: 02/02/2022. ?? FINDINGS:? The ventricles, cisterns and sulci appear slightly prominent consistent with mild generalized age related atrophy. No hydrocephalus. There is no acute intracranial hemorrhage, tumor or infarct. This study is limited due to due to lack of intravenous contrast. A few areas of hyperintense T2/FLAIR signals are seen in the white matters. The findings are nonspecific and could represent chronic small vessel ischemic disease. Please correlate clinically.? There are normal flow-voids within major intracranial vessels. ?? The paranasal sinuses are clear. ?? IMPRESSION:? No acute pathology is seen in the brain.? Reason For Exam Pain/Tenderness Extremities ?? RESULT: US Doppler Ext Lower Venous Bilat US Doppler Ext Lower Venous Bilat? Reason: Pain Tenderness Extremities; Clinical Question(s): Thrombosis ?? COMPARISON: None ?? IMAGING TECHNIQUE: Streamlined portable ultrasound of the lower extremity deep venous system was performed using grayscale, color, and spectral Doppler ultrasound from the common femoral through the popliteal vein assessing for complete compressibility and good response to compression and augmentation. The calf veins are not assessed. ?? FINDINGS:? RIGHT LOWER EXTREMITY: ?? Common femoral vein: Patent. No thrombosis. ?? Femoral vein: Patent. No thrombosis. ?? Popliteal vein: Patent. No thrombosis. ?? LEFT LOWER EXTREMITY: ?? Common femoral vein: Patent. No thrombosis. ?? Femoral vein: Patent. No thrombosis. ?? Popliteal vein: Patent. No thrombosis. ?? OTHER FINDINGS: None. ?? IMPRESSION:? No evidence of deep venous thrombosis from the groin through the popliteal vein. Calf veins not assessed with portable technique. ?? Reason For Exam abdominal pain;Other: ?? RESULT: US Abdomen Ltd Portable US Abdomen Ltd? Reason: Right upper quadrant abdominal pain. Clinical Question(s): Cholecystitis. ?? COMPARISON: CT abdomen 01/12/2022 ?? FINDINGS: ?? Liver: Coarse hepatic echotexture. No suspicious lesion. Smooth hepatic contour. Main portal vein patent with normal hepatopetal direction of flow. ?? Gallbladder: No gallstones. Normal wall thickness. No pericholecystic fluid. Negative Wolff sign. ?? Biliary Tree: No intrahepatic or extrahepatic bile duct dilation is identified. Common duct measures: 0.6 cm. ? IMPRESSION:? No evidence of cholelithiasis or acute cholecystitis. ? 35_ minutes spent on discharge Janet Carl: PERFORM, SIGN, VERIFY Event Display: Case Management Discharge Plan Authored Date: Patient: PRATIBHA ROSSI Age: 67 years Sex: Female : 1955 Associated Diagnoses: None Author: Janet Carl Discharge Plan Case Management Discharge Plan : Case Management Discharge Plan Data 03/10/2022 11:18 EST Discharge Level of Care at Discharge Inpatient Rehab Facility/Unit Discharge Nursing Homes/Rehab Facilities [facility] Name of Agency #1 [facility] Service Categories #1 Occupational Therapy, Physical Therapy, Assisted Service Comments #1 you are being discahrged to [facility] rehab today, [facility] will transport via ambulance. 03/05/2022 23:04 EST Discharge Level of Care at Discharge Short-term Acute InpatientRatte Jasmin GIRON: PERFORM Event Display: Patient Education/Instruction Authored Date: [id number] Inpatient Adult Discharge Instructions [address] [address] Name: PRATIBHA ROSSI : 1955 Visit: 03/05/2022 23:35:00 Current Date: 03/10/2022 12:40 Account: [id number] Inpatient Adult Discharge Instructions We would like to thank you for allowing us to assist you with your healthcare needs. The following includes patient education materials and information regarding your injury/illness. Our entire staff strives to provide an excellent experience for our patients and their families. PLEASE ENSURE YOU FOLLOW-UP PER THE INSTRUCTIONS BELOW! ?? YOUR OPINION IS IMPORTANT TO US! Please complete the survey you may receive by mail or email. Your feedback will be used to make improvements to the healthcare experiences of our patients and their families. Surveys are administered by [employer] ?? If further treatment with your primary care physician or another doctor is recommended, it is important for you to keep the appointment. Call your primary care physician or return to the Emergency Department immediately if your condition worsens, fails to improve, or new symptoms develop. If you need to find a doctor, you can call [facility] for a referral at [phone] or toll free at [phone] or log in to [email or web address].. ?? You can view and manage your care through the patient portal or by using a health care karen of your choosing. [employer] is a website that allows you to securely view your medical information including your hospital discharge summary, office visit summaries, medications and follow-up visits. You can also request appointments, renew medications, and request access to your medical information using a health care karen of your choosing, or just ask a question. You can enroll at [email or web address] or register during your next office visit. You have been discharged from [facility], Patient Care Unit: NCCU. If you have any questions regarding these instructions after you leave, please call us and we will be happy to assist you. [facility] Your Care Team Consulting Providers Deidre SHARPE, Deja; Lucian SHARPE, Ghulam Discharging Providers Dionna SHARPE, Maddison Reason for Admission THROMBUS Your Diagnosis Thrombus Adenocarcinoma of lung Chest wall pain Left-sided weakness Left subclavian artery occlusion Subclavian steal syndrome of left subclavian artery Hyponatremia Hypertension Hyperlipidemia HAMIDA (generalized anxiety disorder) Pure hypercholesterolemia Tests Performed Below is a partial list of the tests performed during your hospitalization. You may have had other tests and procedures not included in this list. Please discuss all test results with your provider. BUN CBC CBC w/ Differential COVID-19 (2019 Novel Coronavirus) PCR Creatinine Electrolytes LFT's Lytes Mg Level OSMOLALITY, SERUM TSH WITH REFLEX TO FT4 Urine Osmolality Urine Sodium Doppler Ext Lower Venous Bilat (US) US Abdomen Ltd Primary Care Provider Kelsie Oliver Advance Directive Health Care Proxy on File Yes - Health Care Proxy No qualifying data available. Discharge Vitals Temperature: 98 DegF Height: 159 cm Pulse Rate: 62 bpm Weight: 69.9 kg Respiratory Rate:??13 br/min??Low Body Mass Index:??28.88 kg/m2??High Respiratory Rate: 24 br/min Body surface area: 1.8 Systolic Blood Pressure: 135 mm Hg ?? Diastolic Blood Pressure: 61 mm Hg ?? Oxygen Saturation: 99 % ?? Studies Pending All tests and labs ordered during this hospital stay have been completed unless listed below. Pleasediscuss all pending results with your provider listed above in these instructions. ?? Add On Lab Order Basic Metabolic Panel Blood Gas Arterial (ABG) CBC Cortisol Level What to do next Instructions From Your Doctor Discharge Orders Scheduled Follow-Up Appointments Saturday 3:15 PM EST ?? With: Wen BLANCHARD, Cher Moffett Where: [facility] [address] [place] [phone]- You Need to Schedule the Following Appointments Follow Up with??Jagjit WEAVER, Kelsie Parks When??Within 3-5 day: call to discuss follow up visit Why: Please schedule an appointment to follow-up. Where: ?? Discharge Medications PRATIBHA ROSSI :1955 Visit Date:03/05/2022 Medications: Please continue your medications until treatment is completed or stopped by your provider. Medications not listed below should be discontinued. Discuss any questions related to medications with your provider. What How Much When Instructions Next Dose Changed Lidocaine Topical (lidocaine 5% topical film) Topically Daily Changed Oxycodone (oxyCODONE 5 mg oral tablet) 2 tab(s) Oral Every 6 hours as needed for Pain , Moderate Unchanged Acetaminophen 975 Milligram Oral 3 times a day as needed for Pain , Moderate Unchanged apixaban (Eliquis 5 mg oral tablet) 1 tab(s) Oral Twice a day Unchanged Atorvastatin (atorvastatin 10 mg oral tablet) See instructions TAKE ONE TABLET BY MOUTH ONCE DAILY ?? Unchanged Gabapentin (gabapentin 100 mg oral capsule) 1 capsule Oral 3 times a day Unchanged Lorazepam (LORazepam 0.5 mg oral tablet) 1 tab(s) Oral Twice a day as needed for as needed for anxiety Unchanged Mirtazapine (mirtazapine 7.5 mg oral tablet) 1 tab(s) Oral Daily at Bedtime Unchanged Polyethylene Glycol 3350 (MiraLax Powder) 17 gram Oral Daily Unchanged Senna (Senna 8.8 mg/ 5 mL oral syrup) 10 Milliliter Oral Daily at Bedtime ?? What How Much When Comments Stop Taking Cholecalciferol (Vitamin D3) 500 Microgram Oral Daily Stop Taking Cyanocobalamin (cyanocobalamin 1000 mcg oral tablet) 1 tab(s) Oral Daily Stop Taking Diclofenac Topical (Flector Patch 1.3% topical film, extended release) 1 patch(es) Topically Twice a day as needed for for pain Stop Taking Diltiazem (diltiazem 180 mg/ 24 hours oral capsule, extended release) 1 capsule Oral Daily Stop Taking Enoxaparin 80 Milligram Subcutaneous Injection Every 12 hours Stop Taking Morphine (MorPHINE Inj) 2 Milligram IV Push Slowly Every 4 hours as needed for Pain , Severe Stop Taking Nicotine (nicotine 7 mg/ 24 hr transdermal film, extended release) 24 hour Topically Daily Stop Taking Ondansetron (Zofran Inj) 4 Milligram Intravenous Push Every 6 hours as needed for Nausea & Vomiting Test Results Below is a partial list of the most recent Laboratory test results done prior to this discharge. You may have had other tests and procedures not included in this list. Please discuss all test results with your provider. BUN (03/10/2022) ???BUN - 11 mg/dL CBC (03/10/2022) ???WBC - 4.8 k/mm3???RBC - 3.02 m/mm3???Hgb - 10.0 Gm/dL???Hct - 30.7 %???MCV - 101.7 femtoliters???MCH - 33.1 pg???MCHC - 32.6 g/dL???Platelet Count - 225 k/mm3???RDW-SD - 48.7 femtoliters???MPV - 8.8femtoliters???Nucleated RBC (Automated) - 0.0 #/100 WBC'S???Abs. NRBC - 0.0 k/mm3 CBC w/ Differential (03/08/2022) ???WBC - 5.7 k/mm3???RBC - 2.91 m/mm3???Hgb - 9.7 Gm/dL???Hct - 28.7 %???MCV - 98.6 femtoliters???MCH - 33.3 pg???MCHC - 33.8 g/dL???Platelet Count - 219 k/mm3???RDW-SD - 45.1 femtoliters???MPV - 9.0 femtoliters???Nucleated RBC (Automated) - 0.0 #/100 WBC'S???Abs. NRBC - 0.0 k/mm3???Abs. Neut - 4.8 k/m m3???Abs. Lymph - 0.5 k/mm3???Abs. Donley - 0.4 k/mm3???Abs. Eo - 0.0 k/mm3???Abs. Baso - 0.0 k/mm3???Neut % - 83.7 %???Lymph % - 9.1 %???Donley % - 6.1 %???Eos % - 0.2 %???Baso % - 0.2 %???Imm Gran - 0.7 %???Abs. Imm Gran - 0.0 k/mm3 COVID-19 (2019 Novel Coronavirus) PCR (03/08/2022) ???COVID-19 PCR Specimen Source - NASAL???COVID-19 PCR Result - NEGATIVE Creatinine (03/10/2022) ???Creatinine-Blood - 0.7 mg/dL???Estimated GFR Creatinine - 96 ML/MIN/1.73 M2 Electrolytes (03/07/2022) ???Sodium - 129 mmol/L???Potassium - 4.7 mmol/L???Chloride - 99 mmol/L???Bicarbonate Level - 21 mmol/L???Anion Gap - 9 LFT's (03/09/2022) ???Protein, Total - 4.9 Gm/dL???Albumin - 3.4 Gm/dL???Alkaline Phosphatase - 80 units/L???AST (SGOT)- 29 units/L? ?ALT (SGPT) - 22 units/L? ?Bilirubin, Total - <0.2 mg/dL? ?Bilirubin, Direct - <0.2 mg/dL???Bilirubin, Indirect - Total bilirubin is less than the measureable limit. Therefore, indirect Lytes (03/10/2022) ???Sodium - 135 mmol/L???Potassium - 4.1 mmol/L???Chloride - 101 mmol/L???Bicarbonate Level - 24 mmol/L???Anion Gap - 10 Mg Level (03/08/2022) ???Magnesium - 2.2 mg/dL OSMOLALITY, SERUM (03/07/2022) ???Osmolality - 267 mOs/kg TSH WITH REFLEX TO FT4 (03/07/2022) ???TSH - 2.08 uIU/mL Urine Osmolality (03/08/2022) ???Osmolality, Urine Random - 209 mOsm/kg Urine Sodium (03/08/2022) ? ?Sodium, Urine Random - <20 mmol/L Immunizations This Visit Given Vaccine Dateinfluenza virus vaccine, inactivated 03/06/2022 Allergies (NKA means No Known Allergies) tetracycline??(red blotches) Adhesive Bandage Cymbalta Flexeril??(rash) doxycycline??(rash) nonsteroidal anti-inflammatory agents??([D]Wheezing) penicillin??(rash) sulfa drugs Problems Active Problems??(30) Bruit of left carotid artery?? Chest pain?? Chronic anticoagulation?? Chronic low back pain?? Decreased range of motion of lumbar spine?? Decreased range of motion of neck?? Depression, major, recurrent, in partial remission?? Displacement of lumbar intervertebral disc without myelopathy?? Femoral/iliac bruit, right?? Generalized anxiety disorder?? GERD - Gastro-esophageal reflux disease?? Heavy smoker (more than 20 cigarettes per day)?? Hyperlipidemia?? Hypertension?? Hyponatremia?? Impingement syndrome of right shoulder?? Impingement syndrome of shoulder region?? Limitation due to disability?? Lumbosacral radiculitis?? Lumbosacral spondylosis without myelopathy?? Macular degeneration?? Median nerve compression, left?? Myofascial pain syndrome, diffuse?? Osteopenia?? Overweight (BMI 25.0-29.9)?? Paroxysmal atrial flutter?? Primary adenocarcinoma of upper lobe of left lung ([id number])?? Subclavian artery stenosis, left?? Tubular adenoma of colon?? Vascular bruit overarea of subclavian arteries L & R?? Education Materials Below is the list of Educational Leaflet Providered with your Discharge Instructions. Valuables and Belongings I fully understand and agree that [facility] accepts no responsibility for all my personal property including clothing, toilet articles, radios, jewelry, dentures, hearing aids, rings, money, or any other property that is in my possession or is brought to me after admission. I understand certain valuables may be placed in a hospital safe for a short period of time. I understand that the hospital is not liable for loss or damage due to accident, fire, or other natural occurrence while said property is in the safe. I accept full responsibility for any personal property that I keep with me, and will not hold the hospital responsible in case of loss or disappearance. I acknowledge that i have been encouraged to send valuables and belongings home. ?? Disposition of Belongings: Other: sent to [facility] Date for Pt to Sign Valuables/Belongings: 03/10/22 12:34:00 ?? Other Discharge Information ? Case Management Discharge Plan?? Discharge Plan?? Discharge Agency Information?? Discharge Level of Care at Discharge: Inpatient Rehab Facility/Unit Name of Agency #1: [facility] Discharge Nursing Homes/Rehab Facilities: [facility] Service Categories #1: Occupational Therapy, Physical Therapy, Assisted ?? Service Comments #1: you are being discahrged to [facility] today, [facility] will transport via ambulance. ?? Pulmonary Rehab Status?? Pulmonary Rehab Discharge Status?? Respiratory Rate:??13 br/min??Low Respiratory Rate: 24 br/min ? Common Emergency Awareness Tips IS IT A STROKE? Act FAST and Check for these signs: FACE Does the face look uneven? ARM Does one arm drift down? SPEECH Does their speech sound strange? TIME Call at any sign of stroke ?? Heart Attack Signs Chest discomfort: Most heart attacks involve discomfort in the center of the chest and lasts more than a few minutes, or goes away and comes back. It can feel like uncomfortable pressure, squeezing, fullness or pain. Discomfort in upper body: Symptoms can include pain or discomfort in one or both arms, back, neck, jaw or stomach. Shortness of breath: With or without discomfort. Other signs: Breaking out in a cold sweat, nausea, or lightheaded. Remember, MINUTES DO MATTER. If you experience any of these heart attack warning signs, call to get immediate medical attention! ?? Smoking can increase your chances of developing chronic health problems and can cause harmful effects to other family members in your house. If you smoke, you are strongly encouraged to quit. Please call [facility] at [phone] or [phone]) or log in to [email or web address] for referrals to smoking cessation programs. ?? The National Suicide Prevention Hotline is available 08/10 if you or someone you know needs to find areason to keep living. By calling 0-236-748-pale (4518) you'll be connected to a skilled, trained counselor at a crisis center in your area. INPATIENT DISCHARGE INSTRUCTIONS SIGNATURE PAGE PRATIBHA ROSSI Location:[facility] Registration Date and Time:03/05/2022 23:35 EST Primary Care Physician: Kelsie Oliver, I PRATIBHA ROSSI, have received the above patient education materials/instructions and have verbalized understanding. If ambulance or transport services are being used I further acknowledge being given a choice of service. ?? If you need to contact me, please call me at this number: . 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 Age:??67 Years?Sex:??Female?:??1955?? Chief Complaint/Reason for Consultation Rule out stroke, Progression of left subclavian occlusion History of subclavian steal syndrome of left subclavian artery History of Present Illness 67-year-old female with hypertension, hyperlipidemia, atrial flutter, chronic hyponatremia, lumbar spinal stenosis and fibromyalgia.?? She was diagnosed with subclavian steal syndrome with left upper weakness and was undergoing work-up when she was found to have a left lung mass that eventually was diagnosed as invasive adenocarcinoma.?? She has been started on radiation therapy (02/15 - 02/28) . 1 week ago, she started complaining of pain around her right trunk worse with movement or deep inspiration. 1 day ago, she also developed pain around her left trunk.?? She became very anxious and noted that her blood pressure was very elevated. EMS was activated.?? She was brought to [facility] as a code stroke because of her left upper weakness. In the ER: She was noted to be hypertensive.?? ACS was ruled out with negative troponins.?? CT headwas nonacute.?? CT angiogram of the head and neck showed high-grade stenosis of the major arteries of the intracranial arteries.?? The left subclavian artery is occluded from the segment of approximately 2 cm above its origin.?? This appears progressed from the prior study. Neurology was involved.?? He recommended to obtain brain MRI to evaluate for acute/subacute infarcts.?? He also wanted [place] [facility] [place] and possible stenting of the left subclavian artery.?? She would also benefit from oncology evaluation prior to the procedure. ?? On her presentation D5A: Vital signs: Normal She currently complains of right rib cage pain with palpation and with deep breathing. Review of Systems Constitutional: No weight loss, fever, chills HEENT: No visual loss. No hearing loss, congestion, runny nose , sore throat. Skin: No rash?? Cardiovascular: No palpitations. Respiratory: No shortness of breath, cough. Gastrointestinal: No nausea, vomiting or diarrhea. No abdominal pain or blood in stool. Genitourinary: No burning micturition. No urinary frequency or incontinence. Musculoskeletal: No muscle pain, back pain, joint pain or stiffness. Endocrine: No reports of sweating. No cold or heat intolerance. No polyuria or polydipsia. Hematologic: No bleeding or bruising. Immunologic/Allergic: No itchy eyes/Itchy nose/Sneezing/Watery eyes Lymphatics: No enlarged lymph nodes. Neurologic: No headache,, change in bowel or bladder control. Psychiatric: No depression or anxiety. Objective Measurements?? Height: 159 cm (03/05/22) Weight: 73 kg (03/05/22) Dry Weight: 73 kg (03/05/22) Body Mass Index:??28.88 kg/m2??High (03/05/22) ? Vital Signs?? Temperature: 97.7 DegF (03/05/22 23:40:00) Temperature Route: Oral (03/05/22 23:40:00) Pulse Rate: 67 bpm (03/05/22 23:40:00) Respiratory Rate: 20 br/min (03/05/22 23:40:00) Systolic Blood Pressure: 113 mm Hg (03/05/22 23:40:00) Diastolic Blood Pressure: 66 mm Hg (03/05/22 23:40:00) Blood pressure sites: Arm, right (03/05/22 23:40:00) Mean Arterial Pressure: 82 mm Hg (03/05/22 23:40:00) Pulse Pressure: 47 mm Hg (03/05/22 23:40:00) Oxygen Saturation: 97 % (03/05/22 23:40:00) Liters per Minute: 0 L/min (03/05/22 01:42:00) Mode of Delivery (Oxygen): Room air (03/05/22 23:40:00) Early Warning Score: 2 (03/05/22 23:55:24) ? Physical Exam GENERAL: Non acutely??ill-appearing, no acute cardiorespiratory Distress HEAD: Normocephalic, atraumatic. EYES: No conjunctival injection. No scleral icterusPink conjunctiva EARS: No tenderness, no discharge. NOSE: No asymmetry. MOUTH AND THROAT: No oral thrush.?? Moist mucous membranes NECK: No JVP elevation, No masses. Range of motion full. HEART: Regular rate and rhythm, no murmurs, no clicks, no rubs , no gallops. CHEST: Positive right rib cage tenderness to palpation below the right breast.?? Symmetric with respirations. No accessory muscle use, No wheezes, crackles. ABDOMEN: Normoactive bowel sounds. No tenderness or guarding. No increase in liver or spleen size. No masses palpable. GENITOURINARY: No CV angle tenderness. No suprapubic tenderness. No Reaves catheter in place. Rectal exam is deferred. MUSCULOSKELETAL: Range of motion full in all extremities , no obvious deformity , no increased warmth , no effusion VASCULAR: All pulses brisk and equal, Capillary refill time < 2sec LYMPHATIC: No cervical, axillary or inguinal adenopathy. Skin: Dry and thin. No evidence of cellulitis, no other major skin lesions NEUROLOGIC: No deficit on gross motor and sensory exam Alert and oriented to person, place, time, and situation Psychiatric: No delusions, hallucinations, SI or HI Assessment/Plan Assessment:??67-year-old female with hypertension, hyperlipidemia, atrial flutter, chronic hyponatremia, lumbar spinal stenosis and fibromyalgia. She was diagnosed with subclavian steal syndrome with left upper weakness and was undergoing work-up when she was found to have a left lung mass that eventually was diagnosed as invasive adenocarcinoma. She has been started on radiation therapy (02/15 - 02/28) . She has been complaining of right trunk pain, progressing to the left side. ?? Left-sided weakness (R53.1):? Left subclavian artery occlusion (I70.8):? 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 Transferred to our neurology floors Neuro checks q4 hours I confirmed that the??MRI brain without contrast to rule out subacute stroke??was?? completed ??at [facility] prior to transfer and is pending official read Continue to Hold Eliquis, Provide therapeutic Lovenox Dr Epstein will evaluate her and consider left subclavian stenting ?? Chest wall pain (R07.89):? Worse with palpation and movement favoring musculoskeletal etiology??+/- ??neuropathic component asgentle skin palpation also causes pain ACS ruled out by??unchanged EKG and??normal troponins Pain control with?lidocaine patches,?scheduled Tylenol,?oxycodone PRN and if needed IV morphine? Adenocarcinoma of lung (C34.90):?s/p radiation therapy 02/15- 02/28 Oncology consultation prior to Neurovascular procedure ?? Hyponatremia (E87.1): Resolved Continue to monitor ?? Hypertension (I10):?? Continue diltiazem ?? Hyperlipidemia (E78.5):?? Continue statin ?? HAMIDA (generalized anxiety disorder) (F41.1):?? BEejudicious with ??lorazepam 0.5 mg BID PRN Continue mirtazapine ?? VTE Prophylaxis:? Therapeutic lovenox Eliquis on hold ?VTE Prophylaxis Assessment:??VTE Prophylaxis Ordered ?? Code Status:? Full code ?Order Code Status:??Code Status Ordered ?? Ongoing Medical Necessity:? Brain imaging follow up Oncology consultation Neurovascular intervention ?? Discharge Planning:? Anticipate at least 3 night hospital stay ? Histories Allergies Allergies ?(Active and Proposed Allergies Only) Adhesive Bandage? (Severity: Unknown severity, Onset: Unknown) Cymbalta? (Severity: Unknown severity, Onset: Unknown) Flexeril? (Severity: Unknown severity, Onset: Unknown) ?Reactions: rash tetracycline? (Severity: Persistent Moderate, Onset: Unknown) ?Reactions: red blotches sulfa drugs? (Severity: Unknown severity, Onset: Unknown) nonsteroidal anti-inflammatory agents? (Severity: Unknown severity, Onset: Unknown) ?Reactions: [D]Wheezing doxycycline? (Severity: Unknown severity, Onset: Unknown) ?Reactions: rash penicillin? (Severity: Unknown severity, Onset: Unknown) ?Reactions: rash ? Past Medical History/Problem List Active Problems??(30) Bruit of left carotid artery Chest pain Chronic anticoagulation Chronic low back pain Decreased range of motion of lumbar spine Decreased range of motion of neck Depression, major, recurrent, in partial remission Displacement of lumbar intervertebral disc without myelopathy Femoral/iliac bruit, right Generalized anxiety disorder GERD - Gastro-esophageal reflux disease Heavy smoker (more than 20 cigarettes per day) Hyperlipidemia Hypertension Hyponatremia Impingement syndrome of right shoulder Impingement syndrome of shoulder region Limitation due to disability Lumbosacral radiculitis Lumbosacral spondylosis without myelopathy Macular degeneration Median nerve compression, left Myofascial pain syndrome, diffuse Osteopenia Overweight (BMI 25.0-29.9) Paroxysmal atrial flutter Primary adenocarcinoma of upper lobe of left lung ([id number]) Subclavian artery stenosis, left Tubular adenoma of colon Vascular bruit overarea of subclavian arteries L & R ? Past Surgical History Colonoscopy and extirpation of lesion of colon: 01/16/22 Colonoscopy, flexible; with biopsy, single or multiple: 01/16/22 Abnormal EM09/21/13 colonoscopy: 10/16/10 Bilateral Sacro-Iliac Injection: 07/20/10 Parathyroidectomy, single: 06/15/09 Ankle, right ORIF Bronchoscopy, rigid or flexible, including fluoroscopic guidance, when performed; with computer-assisted, image-guided navigation (List separately in addition to code for primary procedure[s]) ? Social History Alcohol Details:??Use: Never. Employment/School Details:??Status: Disabled. Exercise Details:??Regular exercise: No. ??Exercise type: stretching. Home/Environment Details:??Living situation: Home/Independent. ??Lives with: Significant other. Nutrition/Health Details:??Diet: Regular. Substance Abuse Details:??Use: Past. ??Type: Marijuana. ??Other: medical marijuana discontinued due to intolerance. Tobacco Details:??Use: 4 or less cigarettes(less than 1/4 pack)/day in last 30 days, Former smoker, quit more than 30 days ago. ??Other: QUIT 2 WEEKS AGO (01/17/2022); PRIOR TO THAT WAS ONLY 2-3 CIG/D X AGE 22. Details:??Use: 5-9 cigarettes (between 1/4 to 1/2 pack)/day in last 30 days. ??Interested in cessation: Yes. ??Other: 5 CIG/D X 40 YEARS. ??Type: Cigarettes. ??Tobacco use times per day: 1/2-1 ppd x 40 years; currently 5/day. ??40 Number of years:. ??Total pack years: 30. Electronic Cigarette/Vaping Details:??Electronic Cigarette Use: Never. ? Family History Mother (): Arthritis; Dementia; TIA (transient ischemic attack) Father: CAD - Coronary artery disease; Cancer of prostate; Myocardial infarction Brother: CAD - Coronary artery disease; Cancer of lung ? Medications Home Medications Acetaminophen?975?Milligram?By Mouth?3 times a day?as needed?Pain , Moderate apixaban (Eliquis 5 mg oral tablet)?1?tab(s)?5?Milligram?By Mouth?2 times a day Atorvastatin (atorvastatin 10 mg oral tablet)?See Instructions?TAKE ONE TABLET BY MOUTH ONCE DAILY Diltiazem (diltiazem 180 mg/24 hours oral capsule, extended release)?180?Milligram?1?capsule?By Mouth?Daily Enoxaparin?0.8?Milliliter?80?Milligram?Subcutaneous Injection?Every 12 hours Gabapentin (gabapentin 100 mg oral capsule)?100?Milligram?1?capsule?By Mouth?3 times a day Lidocaine Topical (lidocaine 5% topical film)?Topically?Daily Lorazepam (LORazepam 0.5 mg oral tablet)?1?tab(s)?0.5?Milligram?By Mouth?2 times a day?as needed?as needed for anxiety Mirtazapine (mirtazapine 7.5 mg oral tablet)?1?tab(s)?7.5?Milligram?By Mouth?Daily at bedtime Morphine (MorPHINE Inj)?2?Milligram?IV Push Slowly?Every 4 hours?as needed?Pain ,Severe Ondansetron (Zofran Inj)?4?Milligram?IV Push?Every 6 hours?as needed?Nausea &Vomiting Oxycodone (oxyCODONE 5 mg oral tablet)?5?Milligram?1?tablet?By Mouth?Every 6 hours?as needed?Pain , Moderate Polyethylene Glycol 3350 (MiraLax Powder)?1?pack/packet?17?gram?By Mouth?Daily Senna (Senna 8.8 mg/5 mL oral syrup)?10?Milliliter?By Mouth?Daily at bedtime ? Results ?? Test Name Test Result Date/TimeWBC 6.5 k/mm3 03/04/2022 14:39 EST Hgb 12.6 Gm/dL 03/04/2022 14:39 EST Hct 35.9 % 03/04/2022 14:39 EST Platelet Count 249 k/mm3 03/04/2022 14:39 EST INR 1.0 03/04/2022 14:39 EST Protime (PT) 9.9 seconds 03/04/2022 14:39 EST APTT 30.5 seconds 03/04/2022 14:39 EST Sodium 133 mmol/L 03/05/2022 04:37 EST Sodium 128 mmol/L (Low) 03/04/2022 14:39 EST Potassium 4.1 mmol/L 03/05/2022 04:37 EST Potassium 4.4 mmol/L 03/04/2022 14:39 EST Chloride 98 mmol/L 03/05/2022 04:37 EST Chloride 92 mmol/L (Low) 03/04/2022 14:39 EST Bicarbonate Level 24 mmol/L 03/05/2022 04:37 EST Bicarbonate Level 21 mmol/L (Low) 03/04/2022 14:39 EST Anion Gap 11 03/05/2022 04:37 EST Anion Gap 15 03/04/2022 14:39 EST Glucose Level 90 mg/dL 03/04/2022 14:39 EST Glucose, POC 86 mg/dL 03/04/2022 14:26 EST BUN 8 mg/dL 03/05/2022 04:37 EST BUN 7 mg/dL (Low) 03/04/2022 14:39 EST Creatinine-Blood 0.6 mg/dL 03/05/2022 04:37 EST Creatinine-Blood 0.6 mg/dL 03/04/2022 14:39 EST Estimated GFR Creatinine 98 ML/MIN/1.73 M2 03/05/2022 04:37 EST Estimated GFR Creatinine 98 ML/MIN/1.73 M2 03/04/2022 14:39 EST Calcium 9.1 mg/dL 03/04/2022 14:39 EST Phosphorus 4.7 mg/dL (High) 03/05/2022 04:37 EST Magnesium 2.1 mg/dL 03/05/2022 04:37 EST Protein, Total 6.2 Gm/dL 03/04/2022 14:39 EST Albumin 4.2 Gm/dL 03/04/2022 14:39 EST AG Ratio 2.1 03/04/2022 14:39 EST Alkaline Phosphatase 101 units/L 03/04/2022 14:39 EST AST (SGOT) 13 units/L 03/04/2022 14:39 EST ALT (SGPT) 10 units/L 03/04/2022 14:39 EST Bilirubin, Total 0.3 mg/dL 03/04/2022 14:39 EST High Sensitivity Troponin (HSTnT) 9 ng/L 03/05/2022 08:13 EST High Sensitivity Troponin (HSTnT) 12 ng/L 03/04/2022 16:57 EST High Sensitivity Troponin (HSTnT) 8 ng/L 03/04/2022 14:39 EST Influenza A PCR NEGATIVE 03/04/2022 18:35 EST Influenza B PCR NEGATIVE 03/04/2022 18:35 EST RSV PCR NEGATIVE 03/04/2022 18:35 EST COVID-19 PCR Result NEGATIVE 03/04/2022 18:35 EST Admission evaluation note Yolanda Mckinnon MD: MODIFY, MODIFY, PERFORM, MODIFY Event Display: Admission Note Authored Date: Patient: ??PRATIBHA ROSSI ? Age:??67 Years?Sex:??Female?:??1955?? History of Present Illness 67yo woman with a history of hypertension, hyperlipidemia, atrial flutter, chronic hyponatremia, lumbar spinal stenosis and fibromyalgia. She was diagnosed with subclavian steal syndrome with left upper weakness and was undergoing work-up when she was found to have a left lung mass that eventually was diagnosed as invasive adenocarcinoma. She was started on radiation therapy (02/15 - 02/28). She re-presented with 1 week right side pain and 1 day left side pain. Developed LUE weakness for which she was brought to [facility] as a code stroke. CT chest showed interval??decrease in size of MERVIN mass,unchanged adrenal nodules, and enlarged pulmonary arteries suggestive of pulmonary hypertension.??CTH non-acute and CTA head / neck showed occluded left subclavian artery, occluded V1??ad proximal V2 segments of left vertebral artery, moderate stenosis of left proximal ICA, and mild stenosis of right proximal ICA. Due to these findings neurology recommended transfer to [facility] for MRI brain (only showed chronic small vessel disease) and possible subclavian stent. Underwent stent placement today with some subsequent bleeding but adequate hemostasis after fem-stop placed. Following procedure patientreports exacerbation of her baseline back pain (now 9 out of 10) and of the side pain she came in with reporting that these are worse when she lies on her back. She is anxious about have to remain supine for extended period. ?? Review of Systems Negative for chest pain, shortness of breath, abdominal pain, dizziness, weakness, vision changes Right side pain from femstop and back pain Objective Vital Signs?? Temperature: 97.6 DegF (03/07/22 11:00:00) Temperature Route: Oral (03/07/22 11:00:00) Pulse Rate: 72 bpm (03/07/22 03:00:00) Heart Rate Monitored: 70 bpm (03/07/22 12:15:00) Respiratory Rate:??11 br/min??Low (03/07/22 12:15:00) Systolic Blood Pressure:??146 mm Hg??High (03/07/22 12:15:00) Diastolic Blood Pressure: 81 mm Hg (03/07/22 12:15:00) Blood pressure sites: Arm, right (03/07/22 12:15:00) Pulse Pressure: 65 mm Hg (03/07/22 12:15:00) Oxygen Saturation: 100 % (03/07/22 12:15:00) Mode of Delivery (Oxygen): Room air (03/07/22 03:00:00) Early Warning Score: 6 (03/07/22 11:48:10) ? Intake/Output? 03/05 23:35 03/07 07:00 03/06 07:00 03/05 07:00 ?? 03/07 12:19 03/07 12:19 03/07 06:59 03/06 06:59 Urine Count ?7 ?0 ?5 ?2 ? Physical Exam General: Well appearing, no acute distress, lying comfortably in bed HEENT: Moist mucus membranes, no eye discharge, PERRL, EOMI, OP without erythema or exudates Neck: Supple,??FROM Respiratory: Clear to auscultation bilaterally, non-labored breathing on room air Cardiovascular: Normal rate, regular rhythm, no murmurs / rubs / gallops, peripheral pulses intact Abdomen: Normal active bowel sounds, soft, non-tender Neurologic: Alert. Responds appropriately to commands. Speech is fluent.??PERRL, EOMI, no facial asymmetry, hearing intact to conversational voice, palate rises symmetrically, speech is clear, tongue is midline. Normal bulk and tone. 5/5 strength in??BUE, moving BLE but limited assessment due to femstop and positioning. Sensation is intact in all extremities equally and symmetrically to light touch. Extremities: Warm and well perfused, no edema Skin: Warm and dry, no rashes or lesions Assessment/Plan 67yo woman with a history of hypertension, hyperlipidemia, atrial flutter, chronic hyponatremia, lumbar spinal stenosis and fibromyalgia. She was diagnosed with subclavian steal syndrome with left upper weakness and was undergoing work-up when she was found to have a left lung mass that eventually wasdiagnosed as invasive adenocarcinoma. Presented with??weakness and bilateral side pain, s/p subclavian stent placement. Transferred to ICU for closer monitoring. ?? Neurologic #Subclavian Steal s/p Stent #Chest Wall Pain #Chronic Back Pain #Fibromyalgia #Anxiety Patient with LUE weakness on presentation attributed to subclavian steal CTA imaging of MRI brain stable from prior Chronic back pain and fibromyalgia for which she is on chronic opioids Presented with new bilateral chest wall pain which was thought to be neuropathic in origin Neuro checks so far remain stable ?? Plan: - Continue Tylenol, oxycodone PRN, and morphine IV PRN - Continue topical lidocaine (adhesive allergy so no patch) - Neuro checks q1h - if stable can wean to q2h per neurointerventional team - Continue Plavix - Resume Eliquis in AM if remains stable from bleeding standpoint - Continue gabapentin (patient reports not taking at home but trialing her inpatient) - Continue home lorazepam PRN and mirtazapine ?? Pulmonary #Lung Cancer Followed by oncology team, borderline DLCO On radiation therapy outpatient Currently stable on room air ?? Plan: - Continue to monitor ?? Cardiovascular #Chest Pain #H/o Paroxysmal Aflutter S/p ACS rule out with reassuring EKG and troponins ?? Plan: - youth nutritional monitor post-procedure - Continue home statin - Continue home diltiazem ?? Renal #Hyponatremia Possible SIADH given chronic, mentioned in a past nutrition note ?? Plan: - Follow up urine studies, ordered by prior team - Monitor urine output ?? Gastroenterologic #GERD No active issues at this time Prior team ordered RUQ ultrasound given chest wall pain to rule out biliary disease, less likey with normal bili and alk phos ?? Plan: - Follow up RUQ ultrasound ?? Infectious Disease No active issues ?? Hematologic #Leg Swelling Prior team noted leg swelling and ordered BLE ultrasound Increased risk of clotting due to malignancy ?? Plan: - Follow up DVT ultrasound - Resume Eliquis tomorrow per neurointerventional if no bleeding - Plavix as above ?? Endocrine No active issues ? ICU Quality Measures Feeding: Regular diet Analgesia: Tylenol, morphine, oxycodone, lidocaine Sedation: None Thrombo ppx: Resume Eliquis in AM Head of bed: Elevated Ulcer ppx: NA - tolerating diet Glycemic control: No h/o DM Spont breathing trial??/ wean O2: NA Bowel: Bowel regimen ordered Indwelling catheters: PIV De-escalate Antibiotics: NA ?? Code Status: Full ?? Yolanda Mckinnon MD, PGY-4 Patient seen and discussed with Dr. Ritchie ? Histories Allergies Allergies ?(Active and Proposed Allergies Only) Adhesive Bandage? (Severity: Unknown severity, Onset: Unknown) Cymbalta? (Severity: Unknown severity, Onset: Unknown) Flexeril? (Severity: Unknown severity, Onset: Unknown) ?Reactions: rash tetracycline? (Severity: Persistent Moderate, Onset: Unknown) ?Reactions: red blotches sulfa drugs? (Severity: Unknown severity, Onset: Unknown) nonsteroidal anti-inflammatory agents? (Severity: Unknown severity, Onset: Unknown) ?Reactions: [D]Wheezing doxycycline? (Severity: Unknown severity, Onset: Unknown) ?Reactions: rash penicillin? (Severity: Unknown severity, Onset: Unknown) ?Reactions: rash ? Past Medical History/Problem List Active Problems??(30) Bruit of left carotid artery Chest pain Chronic anticoagulation Chronic low back pain Decreased range of motion of lumbar spine Decreased range of motion of neck Depression, major, recurrent, in partial remission Displacement of lumbar intervertebral disc without myelopathy Femoral/iliac bruit, right Generalized anxiety disorder GERD - Gastro-esophageal reflux disease Heavy smoker (more than 20 cigarettes per day) Hyperlipidemia Hypertension Hyponatremia Impingement syndrome of right shoulder Impingement syndrome of shoulder region Limitation due to disability Lumbosacral radiculitis Lumbosacral spondylosis without myelopathy Macular degeneration Median nerve compression, left Myofascial pain syndrome, diffuse Osteopenia Overweight (BMI 25.0-29.9) Paroxysmal atrial flutter Primary adenocarcinoma of upper lobe of left lung ([id number]) Subclavian artery stenosis, left Tubular adenoma of colon Vascular bruit overarea of subclavian arteries L & R ? Past Surgical History Colonoscopy and extirpation of lesion of colon: 01/16/22 Colonoscopy, flexible; with biopsy, single or multiple: 01/16/22 Abnormal EM09/21/13 colonoscopy: 10/16/10 Bilateral Sacro-Iliac Injection: 07/20/10 Parathyroidectomy, single: 06/15/09 Ankle, right ORIF Bronchoscopy, rigid or flexible, including fluoroscopic guidance, when performed; with computer-assisted, image-guided navigation (List separately in addition to code for primary procedure[s]) ? Social History Alcohol Details:??Use: Never. Employment/School Details:??Status: Disabled. Exercise Details:??Regular exercise: No. ??Exercise type: stretching. Home/Environment Details:??Living situation: Home/Independent. ??Lives with: Significant other. Nutrition/Health Details:??Diet: Regular. Substance Abuse Details:??Use: Past. ??Type: Marijuana. ??Other: medical marijuana discontinued due to intolerance. Tobacco Details:??Use: 4 or less cigarettes(less than 1/4 pack)/day in last 30 days, Former smoker, quit more than 30 days ago. ??Other: QUIT 2 WEEKS AGO (01/17/2022); PRIOR TO THAT WAS ONLY 2-3 CIG/D X AGE 22. Details:??Use: 5-9 cigarettes (between 1/4 to 1/2 pack)/day in last 30 days. ??Interested in cessation: Yes. ??Other: 5 CIG/D X 40 YEARS. ??Type: Cigarettes. ??Tobacco use times per day: 1/2-1 ppd x 40 years; currently 5/day. ??40 Number of years:. ??Total pack years: 30. Electronic Cigarette/Vaping Details:??Electronic Cigarette Use: Never. ? Family History Mother (): Arthritis; Dementia; TIA (transient ischemic attack) Father: CAD - Coronary artery disease; Cancer of prostate; Myocardial infarction Brother: CAD - Coronary artery disease; Cancer of lung ? Medications Home Medications Acetaminophen?975?Milligram?By Mouth?3 times a day?as needed?Pain , Moderate apixaban (Eliquis 5 mg oral tablet)?1?tab(s)?5?Milligram?By Mouth?2 times a day Atorvastatin (atorvastatin 10 mg oral tablet)?See Instructions?TAKE ONE TABLET BY MOUTH ONCE DAILY Diltiazem (diltiazem 180 mg/24 hours oral capsule, extended release)?180?Milligram?1?capsule?By Mouth?Daily Enoxaparin?0.8?Milliliter?80?Milligram?Subcutaneous Injection?Every 12 hours Gabapentin (gabapentin 100 mg oral capsule)?100?Milligram?1?capsule?By Mouth?3 times a day Lidocaine Topical (lidocaine 5% topical film)?Topically?Daily Lorazepam (LORazepam 0.5 mg oral tablet)?1?tab(s)?0.5?Milligram?By Mouth?2 times a day?as needed?as needed for anxiety Mirtazapine (mirtazapine 7.5 mg oral tablet)?1?tab(s)?7.5?Milligram?By Mouth?Daily at bedtime Morphine (MorPHINE Inj)?2?Milligram?IV Push Slowly?Every 4 hours?as needed?Pain ,Severe Ondansetron (Zofran Inj)?4?Milligram?IV Push?Every 6 hours?as needed?Nausea &Vomiting Oxycodone (oxyCODONE 5 mg oral tablet)?5?Milligram?1?tablet?By Mouth?Every 6 hours?as needed?Pain , Moderate Polyethylene Glycol 3350 (MiraLax Powder)?1?pack/packet?17?gram?By Mouth?Daily Senna (Senna 8.8 mg/5 mL oral syrup)?10?Milliliter?By Mouth?Daily at bedtime ? Inpatient Medications Medications (17) Active SCHEDULED: (7) Atorvastatin 10 mg Tablet (atorvastatin 10 mg oral tablet) ??10 mg, By Mouth, Daily Diltiazem 180 mg/24 hour CD Capsule (diltiazem 180 mg/24 hours oral capsule, extended release) ??180 mg, By Mouth, Daily Gabapentin 100 mg Capsule (gabapentin 100 mg oral capsule) ??100 mg, By Mouth, 3 times a day Lidocaine 5% Topical Patch (Lidocaine 5% Topical) ??1 application, Topically, Daily Mirtazapine 15 mg Tablet (mirtazapine 15 mg oral tablet) ??7.5 mg, By Mouth, Daily at bedtime NaCl 0.9% Flush 3ml (NaCL 0.9% Flush) ??3 mL, IV Push, Every 8 hours Senna Tablet (Senna 8.6 mg oral tablet) ??8.6 mg 1 tablet, By Mouth, Daily at bedtime CONTINUOUS: (0) PRN: (10) Acetaminophen 325 mg Tablet (Tylenol 325 mg oral tablet) ??650 mg, By Mouth, Every 6 hours Lorazepam 0.5 mg Tablet (LORazepam 0.5 mg oral tablet) ??0.5 mg, By Mouth, 2 times a day Melatonin 3 mg Tablet (Melatonin Tablet) ??3 mg, By Mouth, Daily at bedtime MorPHINE 2 mg Inj Syringe (MorPHINE Inj) ??2 mg, IV Push Slowly, Every 4 hours NaCl 0.9% Flush 3ml (NaCL 0.9% Flush) ??3 mL, IV Push, Every 8 hours Ondansetron 2mg/mL Inj (2mL Vial) (Ondansetron Inj) ??4 mg, IV Push, Every 6 hours OxyCODONE 5 mg IR Tablet (oxyCODONE 5 mg oral tablet) ??5 mg, By Mouth, Every 6 hours Polyethylene Glycol 17 Gm Powder (MiraLax Powder) ??17 Gm 1 pack/packet, By Mouth, Daily Polyvinyl Alcohol 1.4% Opthalmic Solution/Artificial Tears (Artificial Tears 1.4%) ??2 drops, Eyes,Both, Every 4 hours Simethicone 80 mg Chewable Tablet (Simethicone Tablet) ??80 mg, Chew, 3 times a day ? Results Recent Labs BLOOD COUNT & DIFF WBC 5.1 k/mm3 ()?? 03/07/2022 04:15 RBC 3.41 m/mm3 (Low)?? 03/07/2022 04:15 Hgb 11.4 Gm/dL (Low)?? 03/07/2022 04:15 Hct 34.2 % (Low)?? 03/07/2022 04:15 MCV 100.3 femtoliters (High)?? 03/07/2022 04:15 MCH 33.4 pg ()?? 03/07/2022 04:15 MCHC 33.3 g/dL ()?? 03/07/2022 04:15 Platelet Count 214 k/mm3 ()?? 03/07/2022 04:15 RDW-SD 46.7 femtoliters ()?? 03/07/2022 04:15 MPV 8.8 femtoliters (Low)?? 03/07/2022 04:15 Nucleated RBC (Automated) 0.0 #/100 WBC'S ()?? 03/07/2022 04:15 Abs. NRBC 0.0 k/mm3 ()?? 03/07/2022 04:15 Abs. Neut 4.5 k/mm3 ()?? 03/07/2022 04:15 Abs. Lymph 0.3 k/mm3 (Low)?? 03/07/2022 04:15 Abs. Donley 0.2 k/mm3 (Low)?? 03/07/2022 04:15 Abs. Eo 0.0 k/mm3 ()?? 03/07/2022 04:15 Abs. Baso 0.0 k/mm3 ()?? 03/07/2022 04:15 Neut % 88.4 % (High)?? 03/07/2022 04:15 Lymph % 6.1 % (Low)?? 03/07/2022 04:15 Donley % 3.9 % (Low)?? 03/07/2022 04:15 Eos % 0.8 % ()?? 03/07/2022 04:15 Baso % 0.2 % ()?? 03/07/2022 04:15 Imm Gran 0.6 % ()?? 03/07/2022 04:15 Abs. Imm Gran 0.0 k/mm3 ()?? 03/07/2022 04:15 ?? CHEM GENERAL Sodium 129 mmol/L (Low)?? 03/07/2022 04:15 Potassium 4.7 mmol/L ()?? 03/07/2022 04:15 Chloride 99 mmol/L ()?? 03/07/2022 04:15 Bicarbonate Level 21 mmol/L (Low)?? 03/07/2022 04:15 Anion Gap 9 ()?? 03/07/2022 04:15 BUN 12 mg/dL ()?? 03/07/2022 04:15 Creatinine-Blood 0.7 mg/dL ()?? 03/07/2022 04:15 Estimated GFR Creatinine 96 ML/MIN/1.73 M2 ()?? 03/07/2022 04:15 Osmolality 267 mOs/kg (Low)?? 03/07/2022 04:15 Magnesium 2.1 mg/dL ()?? 03/07/2022 04:15 ?? ENDOCRINE/TUMOR MARKER TSH 2.08 uIU/mL ()?? 03/07/2022 04:15 ? Erma SHARPE, Damian: PERFORM Event Display: Admission Note Authored Date: 07-Mar-2022 Patient seen and examined chart and intervention reviewed Resident H&P confirmed. Hospital Progress note Jasmin Key RN: PERFORM, SIGN, VERIFY Event Display: Progress Note Hospital Authored Date: Patient: PRATIBHA ROSSI Age: 67 years Sex: Female : 1955 Associated Diagnoses: None Author: Jasmin Key RN Findings Problem Related to Alteration in Comfort : Alteration in Comfort/new 03/10/2022 14:32 EST Alteration in Comfort Related to Disease process, Other: chronic back pain/ R groin hematoma Goals & Outcomes: Comfort Pt will report acceptable level of comfort & pain control, Pt will state importance of adhering to pain strategy regime, Pt will demonstrate necessary skills to manage pain, Non-verbal indicators will indicate comfort/pain control Interventions Implemented: Comfort Assess pain using appropriate pain scale/tools, Assess aggravating factors & prevent them accordingly, Assess alleviating factors & promote them accordingly BH Goals/Interventions, Comfort Yes Comfort, Problem Start 03/06/2022 2:40 Reviewed plan with, Comfort Patient Patient Progression, Comfort Pt progressing according to plan Comfort, Problem Ongoing Yes . Narrative/Incidental P:ALTERATION IN COMFORT I: PER NCP E: PAIN 6 PRN MEDS GIVEN WITH GOOD EFFECT. ABLE TO MOVE WITH 1 ASSIST 1407 REPORT GIVEN TO BREE DEWEY AT [facility] 1430 DC ACCOMPANIED BY AMBULANCE - REPORT GIVEN TO EMS . ALL BELONGINGS SENT. . Discharge Information Rehabilitation Discharge : Rehab Discharge Index 03/08/2022 15:18 EST Comments on treatment indicated 67 F dx subclavian steal syndrome and found to invasive adenocarcinoma. S/p radiation therapy 02/15 - 02/28. Presents c L flank pain and LUE weakness. Now s/p stent placement of the left subclavian artery. PT for strength, gait, balance. Rec home v rehab Full chart review completed Yes Other findings See comment Plan of care PT Gait training, Transfer training, Therapeutic exercise, Functional Activities, Balance trainingMaddison Villareal MD: PERFORM Event Display: Progress Note Hospital Authored Date: Patient: ??PRATIBHA ROSSI ? Age:??67 Years?Sex:??Female?:??1955?? Subjective 67yo woman with a history of hypertension, hyperlipidemia, atrial flutter, chronic hyponatremia, lumbar spinal stenosis, fibromyalgia who presented as a a transfer from [facility]. She was diagnosed with subclavian steal syndrome with left upper weakness and was undergoing work-upwhen she was found to have a left lung mass that eventually was diagnosed as invasive adenocarcinoma. She was started on radiation therapy (02/15 - 02/28). She re-presented with 1 week right side chest?? pain and 1 day left side pain. Developed LUE weakness for which she was brought to [facility] asa code stroke. CT chest showed interval??decrease in size of MERVIN mass, unchanged adrenal nodules, and enlarged pulmonary arteries suggestive of pulmonary hypertension.??CTH non-acute and CTA head / neck showed occluded left subclavian artery, occluded V1??ad proximal V2 segments of left vertebral artery, moderate stenosis of left proximal ICA, and mild stenosis of right proximal ICA. Due to these findings neurology recommended transfer to [facility] for MRI brain (only showed chronic small vessel disease) and possible subclavian stent. Underwent stent placement??on 03/08??with some subsequent bleeding but adequate hemostasis after fem-stop placed. ??She was subsequently transferred to the ICU for every neurochecks. ICU course was uncomplicated??with??improvement in patient's pain??and weakness. ?? Review of Systems Review of systems is negative except for symptoms mentioned above.?? Objective Vital Signs?? Temperature: 97.7 DegF (03/10/22 08:38:00) Temperature Route: Oral (03/10/22 08:38:00) Pulse Rate: 62 bpm (03/10/22 04:00:00) Respiratory Rate:??12 br/min??Low (03/10/22 09:40:00) Systolic Blood Pressure:??147 mm Hg??High (03/10/22 08:38:00) Diastolic Blood Pressure: 61 mm Hg (03/10/22 08:38:00) Blood pressure sites: Arm, left (03/10/22 04:00:00) Oxygen Saturation: 100 % (03/10/22 08:38:00) Mode of Delivery (Oxygen): Room air (03/10/22 08:38:00) ? Intake/Output? 03/05 23:35 03/10 07:00 03/09 07:00 03/08 07:00 03/07 07:00 ?? 03/10 10:51 03/10 10:51 03/10 06:59 03/09 06:59 03/08 06:59 Intake ? 3710 ?240 ? 1440 ? 1530 ?500 Output ? 3075 ?400 ? 1975 ?700 ?0 Net Total ?635 ? -160 ? -535 ?830 ?500 ? Urine Count ? 23 ?0 ?3 ?7 ?9 ? Physical Exam Recent Vital Signs Temperature: 97.7 DegF (03/10/22 08:38:00) Pulse Rate: 62 bpm (03/10/22 04:00:00) Respiratory Rate:??12 br/min??Low (03/10/22 09:40:00) Systolic Blood Pressure:??147 mm Hg??High (03/10/22 08:38:00) Diastolic Blood Pressure: 61 mm Hg (03/10/22 08:38:00) Oxygen Saturation: 100 % (03/10/22 08:38:00)? General Appearance: The patient is well??and in NAD. Cardiovascular: RRR S1 and S2 heard with no M/R/G. No JVD. Respiratory: ??Breath sounds clear to auscultation bilaterally. No wheezing. Good air movement throughout both lungs. GI: Soft. tenderness in the right groin and right lower quadrant. Has ecchymoses around previous site of??femoral??access.?? MS: ??No edema or erythema in the lower extremities. No wounds seen on the feet. Peripheral sensation intact.?? Neuro: ??No slurred speech. ??Patient seen moving their upper and lower extremities independently. Psych: Alert and oriented x3. Appropriate and pleasant. CAM negative. Lines: Peripheral IV in place.? _ Inpatient Medications Medications (23) Active SCHEDULED: (10) Apixaban 5 mg Tablet (Apixaban Tablet) ??5 mg, By Mouth, 2 times a day Atorvastatin 10 mg Tablet (atorvastatin 10 mg oral tablet) ??10 mg, By Mouth, Daily Clopidogrel 75 mg Tablet (Plavix 75 mg oral tablet) ??75 mg, By Mouth, Daily Lidocaine 5% Ointment (Lidocaine 5% Topical) ??1 application, Topically, 2 times a day Mirtazapine 15 mg Tablet (mirtazapine 15 mg oral tablet) ??7.5 mg, By Mouth, Daily at bedtime NaCl 0.9% Flush 3ml (NaCL 0.9% Flush) ??3 mL, IV Push, Every 8 hours Nystatin Powder ??1 application, Topically, 2 times a day Polyethylene Glycol 17 Gm Powder (MiraLax Powder) ??17 Gm 1 pack/packet, By Mouth, Daily Polyvinyl Alcohol 1.4% Opthalmic Solution/Artificial Tears (Artificial Tears 1.4%) ??2 drops, Eyes, Both, Every 4 hours Senna 176mg/ 5 mL Syrup (UD) (Senna Liquid) ??352 mg 10 mL, By Mouth, Daily at bedtime CONTINUOUS: (0) PRN: (13) Acetaminophen 325 mg Tablet (Tylenol 325 mg oral tablet) ??650 mg, By Mouth, Every 6 hours Bisacodyl 10 mg Suppository (Bisacodyl Supp) ??10 mg 1 supp, Rectally, 2 times a day Chloraseptic Lozenge ??1 lozenge, By Mouth, Every 3 hours Docusate Sodium 100 mg Capsule (Colace Capsule) ??100 mg 1 capsule, By Mouth, 2 times a day Lorazepam 0.5 mg Tablet (LORazepam 0.5 mg oral tablet) ??0.5 mg, By Mouth, 2 times a day Magnesium Hydroxide 8% Susp UD (Milk of Magnesia Liquid) ??30 mL, By Mouth, 2 times a day Melatonin 3 mg Tablet (Melatonin Tablet) ??3 mg, By Mouth, Daily at bedtime MorPHINE 2 mg Inj Syringe (MorPHINE Inj) ??2 mg, IV Push Slowly, Every 4 hours NaCl 0.9% Flush 3ml (NaCL 0.9% Flush) ??3 mL, IV Push, Every 8 hours NaCl 0.9% Flush 3ml (NaCL 0.9% Flush) ??3 mL, IV Push, Every 8 hours Ondansetron 2mg/mL Inj (2mL Vial) (Ondansetron Inj) ??4 mg, IV Push, Every 6 hours OxyCODONE 5 mg IR Tablet (oxyCODONE 5 mg oral tablet) ??10 mg, By Mouth, Every 6 hours Simethicone 80 mg Chewable Tablet (Simethicone Tablet) ??80 mg, Chew, 3 times a day ? Results Recent Labs BLOOD COUNT & DIFF WBC 4.8 k/mm3 ()?? 03/10/2022 05:00 RBC 3.02 m/mm3 (Low)?? 03/10/2022 05:00 Hgb 10.0 Gm/dL (Low)?? 03/10/2022 05:00 Hct 30.7 % (Low)?? 03/10/2022 05:00 MCV 101.7 femtoliters (High)?? 03/10/2022 05:00 MCH 33.1 pg ()?? 03/10/2022 05:00 MCHC 32.6 g/dL (Low)?? 03/10/2022 05:00 Platelet Count 225 k/mm3 ()?? 03/10/2022 05:00 RDW-SD 48.7 femtoliters (High)?? 03/10/2022 05:00 MPV 8.8 femtoliters (Low)?? 03/10/2022 05:00 Nucleated RBC (Automated) 0.0 #/100 WBC'S ()?? 03/10/2022 05:00 Abs. NRBC 0.0 k/mm3 ()?? 03/10/2022 05:00 ?? CHEM GENERAL Sodium 135 mmol/L ()?? 03/10/2022 05:00 Potassium 4.1 mmol/L ()?? 03/10/2022 05:00 Chloride 101 mmol/L ()?? 03/10/2022 05:00 Bicarbonate Level 24 mmol/L ()?? 03/10/2022 05:00 Anion Gap 10 ()?? 03/10/2022 05:00 BUN 11 mg/dL ()?? 03/10/2022 05:00 Creatinine-Blood 0.7 mg/dL ()?? 03/10/2022 05:00 Estimated GFR Creatinine 96 ML/MIN/1.73 M2 ()?? 03/10/2022 05:00 Protein, Total 4.9 Gm/dL (Low)?? 03/09/2022 04:40 Albumin 3.4 Gm/dL ()?? 03/09/2022 04:40 Alkaline Phosphatase 80 units/L ()?? 03/09/2022 04:40 AST (SGOT) 29 units/L ()?? 03/09/2022 04:40 ALT (SGPT) 22 units/L ()?? 03/09/2022 04:40 Bilirubin, Total <0.2 mg/dL ()?? 03/09/2022 04:40 Bilirubin, Direct <0.2 mg/dL ()?? 03/09/2022 04:40 Bilirubin, Indirect Total bilirubin is less than the measureable limit. Therefore, indirect mg/dL ()?? 03/09/2022 04:40 ? Assessment/Plan ??67yo woman with a history of hypertension, hyperlipidemia, atrial flutter, chronic hyponatremia, lumbar spinal stenosis and fibromyalgia. She was diagnosed with subclavian steal syndrome with left upper weakness and was undergoing work-up when she was found to have a left lung mass that eventually was diagnosed as invasive adenocarcinoma. Presented with??weakness and bilateral side pain, s/p subclavian stent placement. Transferred to ICU for q1 neuro checks. Now stable and planned for transfer. ?? #Subclavian Steal s/p Stent #Chest Wall Pain #Chronic Back Pain #Fibromyalgia #Anxiety Patient with LUE weakness on presentation attributed to subclavian steal s/p stent insertion CTA imaging of chest Interval decrease size of left upper lobe biopsy proven the 1 cm adenocarcinoma, previously 1.5 cm.??CTA of neck The left subclavian artery is occluded from the segment of approximately 2 cm above its origin. This appears progressed since prior study. Underwent IR-guided stent placement on 03/07/22 with no complications. Transferrred to the ICU for q1 neurochecks albert 24 hrs. Elliquis subsequently resumed. ?? Plan: - Continue Tylenol, oxycodone PRN - Oxy dose increased to 10 mg - Continue topical lidocaine (adhesive allergy so no patch) - Neuro checks q1h - if stable can wean to q2h per neurointerventional team - Continue Plavix - Resume Eliquis - Continue home lorazepam PRN and mirtazapine ?? #Hyponatremia, resolved Urine sodium is <20, most likely hypovolemic. ?? Plan: - Encourage PO intake - Monitor urine output ?? Resolved/Chronic medical condition: #Lung Cancer: Continue to monitor #H/o Paroxysmal Aflutter: Holding home dilt due to soft BP, resume Eliquis #HLD:??Continue home statin??67yo woman with a history of hypertension, hyperlipidemia, atrial flutter, chronic hyponatremia, lumbar spinal stenosis and fibromyalgia. She was diagnosed with subclavian steal syndrome with left upper weakness and was undergoing work-up when she was found to have a left lung mass that eventually was diagnosed as invasive adenocarcinoma. Presented with??weakness and bilateral side pain, s/p subclavian stent placement. Transferred to ICU for q1 neuro checks. Now stable and planned for transfer. ?? #Subclavian Steal s/p Stent #Chest Wall Pain #Chronic Back Pain #Fibromyalgia #Anxiety Patient with LUE weakness on presentation attributed to subclavian steal s/p stent insertion CTA imaging of chest Interval decrease size of left upper lobe biopsy proven the 1 cm adenocarcinoma, previously 1.5 cm.??CTA of neck The left subclavian artery is occluded from the segment of approximately 2 cm above its origin. This appears progressed since prior study. Underwent IR-guided stent placement on 03/07/22 with no complications. Transferrred to the ICU for q1 neurochecks albert 24 hrs. Elliquis subsequently resumed. ?? Plan: - Continue Tylenol, oxycodone PRN, and morphine IV PRN - Continue topical lidocaine (adhesive allergy so no patch) - Neuro checks q1h - if stable can wean to q2h per neurointerventional team - Continue Plavix - Resume Eliquis - Continue home lorazepam PRN and mirtazapine ?? #Hyponatremia, resolved Urine sodium is <20, most likely hypovolemic. ?? Plan: - Encourage PO intake - Monitor urine output ? Resolved/Chronic medical condition: #Lung Cancer: Continue to monitor #H/o Paroxysmal Aflutter: Holding home dilt due to soft BP, resume Eliquis #HLD:??Continue home statin #RUQ pain: RUQ with no evidence of cholelithiasis #Leg Swelling: No evidence of DVT. Resume Eliquis ? Quality Measures Diet: Regular diet Thrombo ppx:?? Eliquis Code: Full Dispo: rehab, pending placement ?? This patient was discussed with ?? Maddison Villareal MD PGY-2 Internal Medicine [employer] / pg#[id number] ?? Kaveh SHARPE, Jena Chun: PERFORM Event Display: Progress Note Hospital Authored Date: I have personally seen and evaluated??PRATIBHA ROSSI. I have discussed the case with the??resident??and agree with the findings and plan as documented below with the following clarifications and addenda: ?? Assessment: #??Subclavian artery thrombus c/b subclavian steal syndrome, s/p stent placement # Lung adenocarcinoma in MERVIN #??Fibromyalgia # Chronic back pain # H/o atrial flutter, currently in sinus rhythm ?? Plan: -??Tolerating resumption of anticoagulation and antiplatelet therapy without issue - Pain (largely related to RLE access site) well-controlled - Planned for transfer to acute rehab later today ?? Rest of plan per resident note ?? Hospital Subsequent Care??Time =??25??minutes ?? (This represents the total time I personally spent evaluating, managing and providing care exclusiveof time spent for separately billable procedures.) ? Jena Linn MD Pulmonary and Critical Care Medicine [facility] [employer] mechanic [facility] Available on [employer]ortex\ [id number] \ [phone] Jerome Hudson RN: PERFORM, SIGN, VERIFY Event Display: Progress Note Hospital Authored Date: Patient: PRATIBHA ROSSI Age: 67 years Sex: Female : 1955 Associated Diagnoses: None Author: Becca GIRON, Jerome Findings Problem Related to Alteration in Comfort : Alteration in Comfort/new 03/10/2022 0:00 EST Alteration in Comfort Related to Disease process, Other: chronic back pain/ R groin hematoma Goals & Outcomes: Comfort Pt will report acceptable level of comfort & pain control, Pt will state importance of adhering to pain strategy regime, Pt will demonstrate necessary skills to manage pain, Non-verbal indicators will indicate comfort/pain control Interventions Implemented: Comfort Assess pain using appropriate pain scale/tools, Assess aggravating factors & prevent them accordingly, Assess alleviating factors & promote them accordingly Goals/Interventions, Comfort Yes Comfort, Problem Start 03/06/2022 2:40 Reviewed plan with, Comfort Patient Patient Progression, Comfort Pt progressing according to plan Comfort, Problem Ongoing Yes . Alteration in Neurological : Alteration in Neurological Function/new 03/10/2022 0:00 EST Alteration in Neuro status Related to Other: left subclavian occlusion Goals & Outcomes, Neurological Lab studies/diagnostic tests within pt specific limits, Pt is safe with transfers & activities, Pt will be hemodynamically stable, Pt will be Neurologically stable, Pt will remain free from injury, Pt will resume/maintain adequate cardiac output, Pt/caregiver will state strategies to reduce risk factors, Pt/caregiver will state understanding of plan/goals of care Interventions, Neurological Assess/monitor for abnormal posturing, Assess/monitor for gaze pattern/extraocular movements, Assess/monitor neurologic status, Assess/monitor VS per unit standards & prn, Call/Report variances in assessments to provider, Collaborate w/ provider to implement appropriate guidelines, Collaborate with Nutrition, Document & Monitor O2 Sats; Administer O2 as ordered, Identify psychosocial issues related to diagnosis/illness, If no bowel movement in 3 days activate bowel regime, [place] alternate means of communication, Keep patient's head & body in good alignment, Maintain normothermia, report temp >101.5 F, Maintain patient safety if unsteady gait, Maintain strict intake & output, Monitor Fluid & Electrolytes, Serum Osmolarity, Monitor for headaches, nausea, vomiting, Monitor speech fluency, aphasia, word finding difficulty, Physical assessment per unit standards Goals/Interventions, Neurological Yes Neurological, Problem Start 03/06/2022 2:42 Reviewed plan with, Neurological Patient Patient Progression, Neurological Pt progressing according to plan . Alteration in Tissue Perfusion : Alteration in Tissue Perfusion 03/10/2022 0:00 EST Alteration Tissue Perfusion related to Vascular Procedure Goals & Outcomes: Tissue perfusion Pt will maintain optimal perfusion to vital organs, Pt will resume/maintain adequate peripheral circulation, Pt will experience improved tissue perfusion, Pt will achieve progressive healing of injured area, Pt will be hemodynamically stable, Pt will achieve norm al/improved/optimal neuro status, Pt will return to baseline respiratory function, Pt will maintain adequate GI function appropriate for pt, Pt will maintain adequate function appropriate for pt Interventions: Tissue Perfusion Assess for s/s of infection of lines, drains, incisions, Assess/Monitor activity tolerance, Assess/Monitor CMS to affected extremity, Assess/Monitor mental status, Assess/Monitor peripheral pulses & capillary refill, Assess/Monitor presence & degree of edema, Assess/Monitor vital signs per unit standard & prn, Monitor blood loss, Monitor Intake & Output , Monitor labs & report variances to provider, Monitor response to fluid replacement, Monitor size & character of hematoma, Elevate limbs, Physical assessment per unit standards, Position for comfort BH Goals/Interventions, Tissue Perfusion Yes Tissue Perfusion, Problem Start 03/07/2022 16:36 Reviewed Plan with, Tissue Perfusion Patient Patient Progression, Tissue Perfusion Pt progressing according to plan . Evaluation P- Alteration in comfort. I- See plan of care. E- Patient has as needed oxycodone and tylenol for pain. Patient complaining of groin and lower backpain. Both of these given on this shift. MD increased oxycodone amount due to not adequate pain control with first dose. Patient also complaining of throat pain. MD aware. As needed lozengers added andgiven with good effect. Patient able to turn self in bed and repositioned as needed. P- Alteration in tissue perfusion. I- See plan of care. E- Patient with no edema. Positive pulses. R groin site with bruising/ecchymotic area. Tender to touch. See documentation. P- Alteration in neurological function. I- See plan of care. E- Patient neuro checks every four hours. Neuro is intact. Pupils are equal and reactive. Alert and oriented x4. Follows all commands. Moves all extrmeities. No neurological deficits. Patient with bathroom privileges of a standby assist. Patient ambulated to the bathroom accompanied by this RN on this shift with no issues. Bed alarm on. [facility] and patient instructedon how to use. . US.doppler Lower extremity vein - bilateral BHSPowerscribe , CIS S: TRANSCRIBE Ja Giron MD: VERIFY Event Display: Result: Authored Date: US Doppler Ext Lower Venous Bilat Reason: Pain Tenderness Extremities; Clinical Question(s): Thrombosis COMPARISON: None IMAGING TECHNIQUE: Streamlined portable ultrasound of the lower extremity deep venous system was performed using grayscale, color, and spectral Doppler ultrasound from the common femoral through the popliteal vein assessing for complete compressibility and good response to compression and augmentation. The calf veins are not assessed. FINDINGS: RIGHT LOWER EXTREMITY: Common femoral vein: Patent. No thrombosis. Femoral vein: Patent. No thrombosis. Popliteal vein: Patent. No thrombosis. LEFT LOWER EXTREMITY: Common femoral vein: Patent. No thrombosis. Femoral vein: Patent. No thrombosis. Popliteal vein: Patent. No thrombosis. OTHER FINDINGS: None. IMPRESSION: No evidence of deep venous thrombosis from the groin through the popliteal vein. Calf veins not assessed with portable technique. WSN: [id number] Ordering Physician: Yolanda Mckinnon Dictated By: Ja Giron MD Dictated Date/Time: 03/07/22 9:30 pm Reviewed By: Ja Giron MD Signed By: Ja Giron MD Signed Date/Time: 03/07/22 9:30 pm Transcribed By: SHAHNAZ Transcribed Date/Time: 03/07/22 9:30 pm US Abdomen limited [facility]erscribe , CIS S: TRANSCRIBE Siddhartha Hong MD: VERIFY Adamaris Dunlap DO: SIGN Event Display: Result: Authored Date: Portable US Abdomen Ltd Reason: Right upper quadrant abdominal pain. Clinical Question(s): Cholecystitis. COMPARISON: CT abdomen 01/12/2022 FINDINGS: Liver: Coarse hepatic echotexture. No suspicious lesion. Smooth hepatic contour. Main portal vein patent with normal hepatopetal direction of flow. Gallbladder: No gallstones. Normal wall thickness. No pericholecystic fluid. Negative Wolff sign. Biliary Tree: No intrahepatic or extrahepatic bile duct dilation is identified. Common duct measures: 0.6 cm. IMPRESSION: No evidence of cholelithiasis or acute cholecystitis. I have personally reviewed the images and I agree with this report. WSN: [id number] Ordering Physician: Kendall Rogel Dictated By: Adamaris Dunlap DO Dictated Date/Time: 03/08/22 11:19 a Reviewed By: Siddhartha Hong MD Signed By: Siddhartha Hong MD Signed Date/Time: 03/08/22 11:24 am Transcribed By: CSSandeep Transcribed Date/Time: 03/08/22 11:17 am Patient Care team information Care Team PersonnelName: Kelsie Oliver Position: [facility] PCO Associate Professional Member Role: PCP Address: Address: [address] [place] [id number]- Name: Manas Landaverde RN Position: [facility] RN Member Role: Primary Care Nurse Name: Kyra Byrne RN Position: [facility] RN Member Role: Primary Care Nurse Name: Ryan Blackmon DO Position: [facility] Physician -Physician Practices Member Role: [employer] Consult[employer] Physician Address: Address: [address] [place] [id number]- Name: Karen Stearns RN Position: [facility] RN Member Role: Primary Care Nurse Name: Vandana Hu RN Position: [facility] RN Member Role: Primary Care Nurse Care Team Related PersonsName: SILVER ROSSI Name: LASHAY MORLEY Address: [address] [address]
--- OUTSIDE RECORDS SUMMARY | 2022-04-27 19:44 | XMS_ITS | Continuity of Care Document ---
:1955 Author Organization [facility] Address [address] [place] [id number]- Care Team Providers Name Role Phone Kelsie Oliver Primary Care Physician Encounter [facility] Date(s): 09/22/19 - 10/22/19 [facility] [address] [place] [id number] [facility] Allergies, Adverse Reactions, Alerts Substance Reaction Severity [...] 10/12/19 9:33:00 EDT, Route to Pharmacy Electronically, [facility], 160.2, cm, 10/02/19 13:49:00 EDT, Height Start Date: 10/12/19 Stop Date: 04/09/20 Status: OrderedAspirin 81, mg, By Mouth, Daily, 0, 0, 04/12/06 11:40:18, Print RADHA Number, [id number], Constant Indicator Start Date: 04/12/06 Status: OrderedColace [...] 1 Refills, Maintenance, 10/12/19 9:33:00 EDT, Tablet, [facility], 160.2, cm, 10/02/19 13:49:00 EDT, Height Start Date: 10/12/19 Stop Date: 04/09/20 Status: Orderedlisinopril 40 mg oral tablet 1 tablet = 40 mg, By Mouth, Daily, # 30 tablet, 5 Refills, Maintenance, 10/12/19 9:33:00 EDT, Tablet, [facility], 160.2, cm, 10/02/19 [...] Replace Required Details, Route to Pharmacy Electronically, [facility], 160.5, cm, 07/07/19 [...] tablet, 0 Refills, Maintenance, 10/20/19 12:30:00 EDT, [facility], Partial fill upon patient request., 160.2, cm, 10/02/19 13:49:00 EDT, Height Start Date: 10/20/19 Status: OrderedSenna By Mouth, Daily, 0 Refills, Maintenance, 11/11/18 11:53:35 EDT Start Date: 11/11/18 Status: Orderedtopiramate 100 mg oral tablet 1 tablet = 100 mg, By Mouth, Daily at bedtime, # 28 tablet, 5 Refills, Maintenance, 08/25/19 8:09:00EDT, [facility], 160.5, cm, 07/07/19 9:17:00 EDT, Height Start Date: 08/25/19 Status: OrderedValium 5 mg oral tablet 5 mg, 1, tablet, By Mouth, 3 times a day, PRN, may take 4th tablet for severe spasm, # 112 tablet, Refills 2, Tot. Refills 2, Maintenance, muscle spasm, 09/22/19 12:26:00 EDT, Route to Pharmacy Electronically, [facility], 160.5, cm, 07/07/19 9... Start [...] Active Vitamin D deficiency(Confirmed) Active 1neg stress [id number] back pain DOI 04/08/200875854aylkjga Oswestry Disability Index: 62% ( crippled ) on 06/30/18; initial [place] Back Pain Scale: 81 on goal < 130 smoker, [id number] point injections-neuro Dr [id number] management per Dr Vanesa worthy louann- [id number] joint dysfunction status post [id number] 05/24 degenerative changes, L5 S1 facet joint inflam-fq20Pled score 0.6 hip, 5.7 [id number]: 15 on 2ACE score: 6 on 11/11/18 Social History Social History Type Response Smoking Status 10 or more cigarettes (1/2 p ack or more)/day in last 30 days; Type: Cigarettes; Other: 1ppd-1/2ppd; Started at age: 24; entered on: 09/22/18 Sex
--- OUTSIDE RECORDS SUMMARY | 2022-04-27 19:44 | XMS_ITS | Continuity of Care Document ---
:1955 Author Organization [facility] Address [address] [place] [address]- Care Team Providers Name Role Phone Kelsie Oliver Primary Care Physician [place] [facility] [place] 04/03/19 [facility] [address] [place] [address]- [facility] Attending Physician: Not on Staff, Attending MD Allergies, Adverse Reactions, Alerts Substance Reaction [...] 09/22/18 14:57:41 EDT, Route to Pharmacy Electronically, [id number], [facility] Start Date: 09/22/18 Stop Date: 09/17/19 Status: OrderedAspirin 81, mg, By Mouth, Daily, 0, 0, 04/12/06 11:40:18, Print RADHA Number, [id number], Constant Indicator Start Date: 04/12/06 Status: OrderedAzithromycin 5 Day Dose Pack 250 mg oral tablet 1 pack/packet, By Mouth, Once, # 6 tablet, 0 Refills, Soft Stop, 03/27/19 14:02:00 EST, Tablet, [facility], 160.5, cm, 03/27/19 13:36:00 EST, Height Start Date: 03/27/19 Status: OrderedClaritin 10 mg oral tablet 10 mg, 1, tablet, By Mouth, Daily, # 90 tablet, Refills 3, Tot. Refills 3, Maintenance, 03/27/19 14:00:00 EST, Route to Pharmacy Electronically, [facility], 160.5, cm, 03/27/19 13:36:00 EST, Height Start Date: 03/27/19 Status: OrderedColace Clear = 50 mg, By Mouth, 2 times a day, 0 Refills, Maintenance, 04/16/16 11:25:20 Start Date: 04/16/16 Status: OrderedControlled Substance Agreement Controlled Substance Agreement, See Instructions, # 1 each, Refills 0, Tot. Refills 0, Maintenance, controlled substance agreement signed 10/16/18, pharmacy [facility], dx: mechanical low back pain, [...] Refills, Maintenance, Tablet, Route to Pharmacy Electronically, [id number], [facility] Start Date: 09/22/18 Stop Date: 09/17/19 Status: Orderedlisinopril 40 mg oral tablet 1 tablet = 40 mg, By Mouth, Daily, # 30 tablet, 1 Refills, Maintenance, 10/03/18 14:13:47 EDT, Tablet Start Date: 10/03/18 Status: Orderedmeclizine 12.5 mg oral tablet 1 [...] take 4th tablet as needed for severe pain. 14 day supply, # 56 tablet, 0 Refills, Maintenance, 03/25/19 11:08:00 EST, [facility], Partial fill upon patient request., 160.5, cm, 03/09/19 11:13:00... Start Date: 03/25/19 Status: OrderedSenna By Mouth, Daily, 0 Refills, [...] PRN, may take 4th tablet for severe spasms, dose javzpnnkp56/15, # 112 tablet, Refills 1, Tot. Refills 1, Maintenance, muscle spasm, 02/11/19 12:11:00 EST, Route to Pharmacy Electronically, [id number]... Start Date: 02/11/19 Status: OrderedVitamin D3 By Mouth, 0 Refills, [...] Active Vitamin D deficiency(Confirmed) Active 1neg stress ruke7Gig back pain DOI 04/08/200849192rikiwxq Oswestry Disability Index: 62% ( crippled ) on 06/30/18; initial [place] Back Pain Scale: 81 on goal < 130 smoker, DIl7cbnefpl point injections-neuro Dr HollowayUfkayx4ewoj management per Dr Alexis redway- cbhmv0YUBF PPGVF8PO joint dysfunction status post fvpmjjfdt7YXC 05/24 degenerative changes, L5 S1 facet joint inflam-ih40Rmta score 0.6 hip, 5.7 rwstv19ILKOI-R: 15 on 2ACE score: 6 on 11/11/18 Vital Signs Most recent to oldest [Reference Range]: 1 Height 160.5 cm (03/27/19 1:36 PM) Weight 65.3 kg (03/27/19 1:36 PM) Oxygen Saturation [94-100 %] 98 % (03/27/19 1:36 PM) Pulse Rate [55-90 bpm] 72 bpm (03/27/19 1:36 PM) Body Mass Index [18.5-24.99] 25.35 *H* (03/27/19 1:36 PM) Blood Pressure [90-138/55-84 mm Hg] 110/66 mm Hg (03/27/19 1:36 PM) Mode of Delivery (Oxygen) Room air (03/27/19 1:36 PM) Blood pressure sites Arm, left (03/27/19 1:36 PM) Social History Social History Type Response Smoking Status 10 or more cigarettes (1/2 p ack or more)/day in last 30 days; Type: Cigarettes; Other: 1ppd-1/2ppd; Started at age: 24; entered on: 09/22/18 Sex
--- OUTSIDE RECORDS SUMMARY | 2022-04-27 19:44 | XMS_ITS | Continuity of Care Document ---
:1955 Author Organization [facility] Address [address] [place] [address]- Care Team Providers Name Role Phone Kelsie Oliver Primary Care Physician [place] [facility] [place] 11/07/21 - 11/14/21 [facility] [address] [place], [place] [address] Attending Physician: Caleb Abrams MD Admitting Physician: Caleb Abrams MD Referring Physician: Manas De La Garza MD Allergies, Adverse Reactions, Alerts Substance Reaction [...] 90 tablet, 1 Refills, 07/24/21 14:35:00 EDT, [facility], 160, cm, 02/16/21 11:16:00 EST, Height, 64, kg, 01/19/21 11:44:00 EDT, Dry Weight Start Date: 07/24/21 Status: Orderedcyanocobalamin 1000 mcg oral tablet 1,000 mcg, 1, tablet, By Mouth, Daily, # 90 tablet, Refills 1, Tot. Refills 1, Maintenance, 09/18/2215:40:00 EDT, Route to Pharmacy Electronically, [facility], 160, cm, 09/15/21 4:30:00 EDT, Height, 74, kg, 09/13/21 20:36:00 EDT, Dry Weight Start Date: 09/17/21 Status: Ordereddiltiazem 180 mg/24 hours oral capsule, extended release 180 mg, 1, capsule, By Mouth, Daily, # 30 capsule, Refills 5, Tot. Refills 5, Maintenance, 09/17/21 16:39:00 EDT, Route to Pharmacy Electronically, [facility], 160, cm, 09/15/21 4:30:00 [...] Active Paroxysmal atrial flutter(Confirmed) Active 1neg stress [id number] Oswestry Disability Index: 58% (26/45; severe disability ); updated [place] Back Pain Disability Scale score: 71 both on 07/20/20 3initial Oswestry Disability Index: 62% ( crippled ) on 06/30/18; initial [place] Back Pain Scale: 81 on goal < 130 smoker, QBu4Ynyg score 0.6 hip, 5.7 other Vital Signs Most recent to oldest [Reference Range]: 1 Height 160 cm (11/07/21 9:14 AM) Weight 72.0 kg (11/07/21 9:14 AM) Pulse Rate [55-90 bpm] 77 bpm (11/07/21 9:14 AM) Body Mass Index [18.5-24.99] 28.13 *H* (11/07/21 9:14 AM) Blood Pressure [90-138/55-84 mm Hg] 156/90 mm Hg *H* (11/07/21 9:14 AM) Blood pressure sites Arm, right (11/07/21 9:14 AM) Weight Obtained Via Patient/family stated (11/07/21 9:14 AM) Social History Social History Type Response Smoking Status 5-9 cigarettes (between 1/4 to 1/2 pack)/day in last 30 days; Interested in cessation: No; Patient wants NRT during admission Yes entered on: 09/13/21 Sex Female Care Team PersonnelName: Kelsie Oliver Address: [address] [facility] [place], [place] [address]
--- OUTSIDE RECORDS SUMMARY | 2022-04-27 19:44 | XMS_ITS | Continuity of Care Document ---
:1955 Author Organization [facility] [place] [address], [address] [place] [address]- Care Team Providers Name Role Phone Kelsie Oliver Primary Care Physician Encounter 12/15/21 - 01/19/22 [facility] [place] [address], [address] [place] [address]- Attending Physician: Kelsie Oliver Admitting Physician: Kelsie Oliver Referring Physician: Kelsie Oliver Allergies, Adverse Reactions, [...] 1 Refills, 07/24/21 14:35:00 EDT, [facility], 160, cm, 02/16/21 11:16:00 EST, Height, 64, kg, 01/19/21 11:44:00 EDT, Dry Weight Start Date: 07/24/21 Status: Orderedcyanocobalamin 1000 mcg oral tablet 1,000 mcg, 1, tablet, By Mouth, Daily, # 90 tablet, Refills 1, Tot. Refills 1, Maintenance, 09/18/2215:40:00 EDT, Route to Pharmacy Electronically, [facility], 160, cm, 09/15/21 4:30:00 EDT, Height, 74, kg, 09/13/21 20:36:00 EDT, Dry Weight Start Date: 09/17/21 Status: Ordereddexamethasone 1 mg oral tablet 1 tablet = 1 mg, By Mouth, Once, Take at 11pm the night before your blood draw., # 1 tablet, 0 Refills, Soft Stop, 01/03/22 14:49:00 EDT, [facility], Partial fill upon patient request if the prescription is for a schedule II opioid drug., 160,... Start Date: 01/03/22 Status: Ordereddiltiazem 180 mg/24 hours oral capsule, extended release 180 mg, 1, capsule, By Mouth, Daily, # 30 capsule, Refills 5, Tot. Refills 5, Maintenance, 09/17/21 16:39:00 EDT, Route to Pharmacy Electronically, [facility], 160, cm, 09/15/21 4:30:00 [...] 1 Refills, Maintenance, 09/17/21 16:40:00 EDT, Patch, [facility], 24 hr Topically Daily, 160, cm, 09/15/21 4:30:00 EDT, Height, 74, kg, 09/13/21 20:36:00 EDT, Dry Weight Start Date: 09/17/21 Status: OrderedPEG-3350 with Electrolytes (Eqv-GoLYTELY) oral powder for reconstitution See Instructions, 1 glass every 15-30 minutes until finished, # 4,000 mL, 0 Refills, Maintenance, 01/08/22 13:55:00 EDT, [facility], Partial fill upon patient request if the prescription is fora schedule II opioid drug., 1 glass every 15-30 m... Start Date: 01/08/22 Status: OrderedSenna 8.8 mg/5 mL oral syrup 10 mL, By Mouth, Daily at bedtime, # 900 mL, 3 Refills, Maintenance, 01/18/22 13:14:00 EDT, [facility], 10 mL By Mouth [...] artery Confirmed Active stenosis, left 1neg stress yfpy6Ugopull Oswestry Disability Index: 58% (26/45; severe disability ); updated [place] Back Pain Disability Scale score: 71 both on 07/20/20 3initial Oswestry Disability Index: 62% ( crippled ) on 06/30/18; initial [place] Back Pain Scale: 81 on goal < 130 smoker, FBy9Hrsc score 0.6 hip, 5.7 other Social History [...] information PersonnelName: Kelsie Oliver Address: Address: [address] [place], [place] [address]
--- OUTSIDE RECORDS SUMMARY | 2022-04-27 19:44 | XMS_ITS | Continuity of Care Document ---
:1955 Author Organization [facility] Address [address] [place] [address]- Care Team Providers Name Role Phone Kelsie Oliver Primary Care Physician [place] [facility] [place] 06[place]20 [facility] [address] [place], [place] [address] Allergies, Adverse Reactions, Alerts Substance Reaction [...] 04/09/20 9:33:00 EST, Route to Pharmacy Electronically, [facility], 160.2, cm, 03/24/20 12:29:00 EST, Height Start Date: 04/09/20 Stop Date: 07/08/20 Status: OrderedAspirin 81, mg, By Mouth, Daily, 0, 0, 04/12/06 11:40:18, Print RADHA Number, [id number], Constant Indicator Start Date: 04/12/06 Status: Orderedazelastine nasal 0.15% spray 2 sprays, 2 times a day, 0 Refills, Maintenance, 05/30/20 11:04:00 EDT, Partial fill upon patient request if the prescription is for a schedule II opioid drug. Start Date: 05/30/20 Status: OrderedColace Clear = 50 mg, By Mouth, 2 times a day, 0 Refills, Maintenance, 04/16/16 11:25:20 Start Date: 04/16/16 Status: OrderedControlled Substance Agreement Controlled Substance Agreement, See Instructions, # 1 each, Refills 0, Tot. Refills 0, Maintenance, controlled substance agreement signed 10/16/18, pharmacy [facility], dx: mechanical low back pain, 10/16/18 [...] 1 Refills, Maintenance, 04/09/20 9:33:00 EST, Tablet, [facility], 160.2, cm, 03/24/20 12:29:00 EST, Height Start Date: 04/09/20 Stop Date: 10/06/20 Status: Orderedlisinopril 40 mg oral tablet 1 tablet = 40 mg, By Mouth, Daily, # 90 tablet, 0 Refills, Maintenance, 04/01/20 13:38:00 EST, Tablet, [facility], 160.2, cm, 03/24/20 12:29:00 [...] pain., # 112 tablet, 0 Refills, Maintenance, 05/31/20 7:58:00 EDT, [facility], Partial fill upon patient request. Please also refill diazepam. Thank you, 160... Start Date: 05/31/20 Status: OrderedSenna By Mouth, Daily, 0 Refills, Maintenance, 11/11/18 11:53:35 EDT Start Date: 11/11/18 Status: OrderedValium 5 mg oral tablet 5 mg, 1, tablet, By Mouth, 3 times a day, PRN, may take 4th tablet for severe spasm, # 112 tablet, Refills 2, Tot. Refills 2, Maintenance, muscle spasm, 05/31/20 7:58:00 EDT, Route to Pharmacy Electronically, [facility], 160.2, cm, 05/30/20 11... Start Date: 05/31/20 Status: OrderedVitamin D3 By Mouth, 0 Refills, [...] Active Vitamin D deficiency(Confirmed) Active 1neg stress wfmf0Zxm back pain DOI 04/08/200839754czprjxg Oswestry Disability Index: 62% ( crippled ) on 06/30/18; initial [place] Back Pain Scale: 81 on goal < 130 smoker, OLp1xtkckoq point injections-neuro Dr HollowayMvjoow7edgf management per Dr Vanesa worthy preston- tlqjw1JZOO KIYKX2QD joint dysfunction status post opnqhdnuf7UCY 05/24 degenerative changes, L5 S1 facet joint inflam-fm03Igqj score 0.6 hip, 5.7 itctr77HJDNY-R: 15 on 2ACE score: 6 on 11/11/18 Social History Social History Type Response Smoking Status 10 or more cigarettes (1/2 p ack or more)/day in last 30 days; Type: Cigarettes; Other: 1ppd-1/2ppd; Started at age: 24; entered on: 09/22/18 Sex
--- OUTSIDE RECORDS SUMMARY | 2022-04-27 19:44 | XMS_ITS | Continuity of Care Document ---
:1955 Author Organization [facility] Address [address] [place] [address]- Care Team Providers Name Role Phone Kelsie Oliver Primary Care Physician Encounter [facility] [place](s): 08/25/20 - 09/24/20 [facility] [address] [place], [place] [address] Allergies, Adverse Reactions, Alerts Substance Reaction [...] 07/12/20 11:52:00 EDT, Route to Pharmacy Electronically, [facility], 160.2, cm, 06/30/20 13:45:00 EDT, Height Start Date: 07/12/20 Stop Date: 01/08/21 Status: OrderedAspirin 81, mg, By Mouth, Daily, 0, 0, 04/12/06 11:40:18, Print RADHA Number, [id number], Constant Indicator Start Date: 04/12/06 Status: OrderedControlled [...] 1 Refills, Maintenance, 06/29/20 8:06:00 EDT, [facility], 160.2, cm, 05/30/20 [...] Refills, Maintenance, 04/09/20 9:33:00 EST, Tablet, [facility], 160.2, cm, 03/24/20 12:29:00 EST, Height Start Date: 04/09/20 Stop Date: 10/06/20 Status: Orderedlisinopril 40 mg oral tablet 1 tablet = 40 mg, By Mouth, Daily, 1/2 tab daily, # 30 tablet, 1 Refills, Maintenance, 07/12/20 11:52:00 EDT, Tablet, [facility], 160.2, cm, 06/30/20 [...] 11/18/20 8:00:00 EDT, 09/16/20 7:57:00 EDT, Patch, [facility], Partial fill upon patient request if the prescription is for a schedule IIopioid drug., 1 patch Topically Daily, 160, cm, 0... Start Date: 09/16/20 Stop Date: 11/18/20 Status: OrderedoxyCODONE 10 mg oral tablet 0.5 to 1 tablet, By Mouth, Every 6 hours, PRN pain r/t work injury, # 35 tablet, 0 Refills, Maintenance, 09/14/20 17:19:00 EDT, [facility], 160, cm, 08/30/20 11:02:00 [...] Active Vitamin D deficiency(Confirmed) Active 1neg stress ipyu7Dcl back pain DOI 04/08/200853109Saagkes Oswestry Disability Index: 58% (26/45; severe disability ); updated [place] Back Pain Disability Scale score: 71 both on initial Oswestry Disability Index: 62% ( crippled ) on 06/30/18; initial [place] Back Pain Scale: 81 on goal < 130 smoker, FHx6 trigger point injections-neuro Dr HollowayCrhbkb6qeqo management per Dr Alexis glen alpine- zygez0KJKN BFVIX7BI joint dysfunction status post agygoowpy71JZR 05/24 degenerative changes, L5 S1 facet joint inflam-ca37Rhhe score 0.6 hip, 5.7 vplqz95BEFOT-V: 15 on 3ACE score: 6 on 11/11/18 Social History Social History Type Response Smoking Status Cigars or pipes but not tad y within last 30 days entered on: 07/29/20 Sex
--- OUTSIDE RECORDS SUMMARY | 2022-04-27 19:44 | XMS_ITS | Continuity of Care Document ---
:1955 Author Organization [facility] Address [address] [place] [address]- Care Team Providers Name Role Phone Kelsie Oliver Primary Care Physician [place] [facility] [place] [facility] [address] [place] [address]- Attending Physician: Ryan Hicks MD Referring Physician: [...] 11:52:00 EDT, Route to Pharmacy Electronically, [facility], 160.2, cm, 06/30/20 13:45:00 EDT, Height Start Date: 07/12/20 Stop Date: 01/08/21 Status: OrderedAspirin 81, mg, By Mouth, Daily, 0, 0, 04/12/06 11:40:18, Print RADHA Number, [id number], Constant Indicator Start Date: 04/12/06 Status: OrderedControlled Substance Agreement Controlled Substance Agreement, See Instructions, # 1 each, Refills 0, Tot. Refills 0, Maintenance, controlled substance agreement signed 10/16/18 Updated: 07/20/2020 pharmacy [facility] dx: mechanical low back pain M54.5, 07/25/20 8:52:00 EDT, Compound Start Date: 07/25/20 Status: OrderedCymbalta 30 mg oral enteric coated capsule 1 capsule = 30 mg, By Mouth, Daily, For Fibromyalgia, # 30 capsule, 6 Refills, Maintenance, 08/04/2113:24:00 EDT, [facility], Partial fill upon patient request if the prescription is for a schedule II opioid drug., 160, cm, 08/02/20 11:08:00... Start Date: 08/04/20 Status: OrderedElectrolytes weekly x4 Electrolytes weekly x4, See Instructions, # 1 each, Refills 0, Tot. Refills 0, Maintenance, Hyponatremia, 07/31/20 14:27:00 EDT, Supply Start Date: 07/31/20 Status: Orderedfamotidine 40 mg oral tablet See Instructions, 1 tab po 1 or 2 times per day., # 56 tablet, 1 Refills, Maintenance, 06/29/20 8:06:00 EDT, [facility], 160.2, cm, 05/30/20 11:21:00 [...] 1 Refills, Maintenance, 04/09/20 9:33:00 EST, Tablet, [facility], 160.2, cm, 03/24/20 12:29:00 EST, Height Start Date: 04/09/20 Stop Date: 10/06/20 Status: Orderedlisinopril 40 mg oral tablet 1 tablet = 40 mg, By Mouth, Daily, # 90 tablet, 1 Refills, Maintenance, 07/12/20 11:52:00 EDT, Tablet, [facility], 160.2, cm, 06/30/20 13:45:00 EDT, Height Start Date: 07/12/20 Status: OrderedMOM Liquid By Mouth, Daily at bedtime, 0 Refills, Maintenance, 12/10/19 9:14:00 EDT Start Date: 12/10/19 Status: OrderedtraZODone 50 mg oral tablet 25 mg, 0.5, tablet, By Mouth, Daily at bedtime, # 15 tablet, Refills 3, Tot. Refills 3, Maintenance,08/08/20 10:06:00 EDT, Route to Pharmacy Electronically, [facility], Discontinue Cymbalta, 160, cm, 08/08/20 9:24:00 EDT, Height, 67.9, kg, 05... Start Date: 08/08/20 Stop Date: 12/06/20 Status: OrderedVitamin D3 By Mouth, 0 Refills, [...] Active Vitamin D deficiency(Confirmed) Active 1neg stress gvru7Nxi back pain DOI 04/08/200899841swamyoe Oswestry Disability Index: 62% ( crippled ) on 06/30/18; initial [place] Back Pain Scale: 81 on goal < 130 smoker, FMd6gpdweoo point injections-neuro Dr HollowayCpvblr3euhh management per Dr Alexis [place]- bercu4WBLJ RNFUZ0CW joint dysfunction status post iwlkamwmh2HFO 05/24 degenerative changes, L5 S1 facet joint inflam-tr23Kmqh score 0.6 hip, 5.7 fupsd82UVBTR-Z: 15 on 2ACE score: 6 on 11/11/18 Vital Signs Most recent to oldest [Reference Range]: 1 Height 160 cm (08/08/20 9:24 AM) Weight 66.7 kg (08/08/20 9:24 AM) Body Mass Index [18.5-24.99] 26.05 *H* (08/08/20 9:24 AM) Weight Obtained Via Standing scale (08/08/20 9:24 AM) Social History Social History Type Response Smoking Status Cigars or pipes but not tad y within last 30 days entered on: 07/29/20 Sex
--- OUTSIDE RECORDS SUMMARY | 2022-04-27 19:44 | XMS_ITS | Continuity of Care Document ---
:1955 Author Organization [facility] Address [address] [place] [address]- Care Team Providers Name Role Phone Kelsie Oliver Primary Care Physician [place] [facility] [place]): [place] 03/15/[address] [address] Discharge Disposition: A-Transfer SNF Attending Physician: Hermann Jaffe MD Admitting Physician: Hermann Jaffe MD Referring Physician: Not on Staff, Referring MD Allergies, Adverse Reactions, Alerts Substance Reaction Severity Status doxycycline rash Active tetracycline red blotches Persistent Moderate Active penicillin rash Active sulfa drugs Active Flexeril rash Active nonsteroidal anti-inflammatory agents [D]Wheezing Active Adhesive Bandage Active Cymbalta Active Immunizations Given and Recorded Vaccine Date Status Refusal Reason influenza virus vaccine, inactivated 03/06/22 Given [id number] bivalent booster vax 12/13/21 Recorde d SARS-CoV-2 (COVID-19) mRNA-1273 vaccine 03/06/21 Recorded SARS-CoV-2 (COVID-19) mRNA-1273 vaccine 06/12/20 Recorded SARS-CoV-2 (COVID-19) mRNA-1273 vaccine 05/15/20 Recorded tetanus/diphtheria/pertussis, acel(Tdap) 06/02/15 Given tetanus-diphtheria toxoids (Td)1 05/16/05 Given 1Admin Note: [facility] Medications acetaminophen 325 mg oral tablet 650 mg, 2, tablet, By Mouth, 3 times a day, PRN, Maintenance, pain/fever, 03/11/22 14:27:00 EST, ; Start Date: 03/11/22 Status: OrderedArtificial Tears 0.5% Ophth See Instructions, prn for dryness, Refills 0, Maintenance, 03/14/22 9:22:00 EST, Instructions Replace Required Details, Partial fill upon patient request if the prescription is for a schedule II opioiddrug. Start Date: 03/14/22 Status: Orderedatorvastatin 10 mg oral tablet 1 tablet = 10 mg, By Mouth, Daily at bedtime, Maintenance, 03/11/22 14:26:00 EST, ; Start Date: 03/11/22 Status: Orderedbisacodyl 10 mg rectal suppository 1 supp = 10 mg, Rectally, Daily, PRN for constipation, Maintenance, 03/11/22 14:29:00 EST, Suppository, ; Start Date: 03/11/22 Status: OrderedEliquis 5 mg oral tablet 1 tablet = 5 mg, By Mouth, 2 times a day, 5 Refills, Maintenance, 03/05/22 23:57:00 EST, Tablet, ; Start Date: 03/05/22 Status: OrderedFleet Enema 19 gm-7 gm rectal enema 1 each, Rectally, Once, PRN for constipation, Maintenance, 03/11/22 14:29:00 EST, Enema, ; Start Date: 03/11/22 Status: Orderedgabapentin 100 mg oral capsule 100 mg, 1, capsule, By Mouth, 3 times a day, Refills 0, Maintenance, 03/05/22 17:15:00 EST, ; Start Date: 03/05/22 Status: Orderedlidocaine 5% topical film 1 patch, Topically, Daily, 0 Refills, Maintenance, 03/05/22 16:21:00 EST, Patch, ; Start Date: 03/05/22 Status: OrderedLORazepam 0.5 mg oral tablet 1 tablet = 0.5 mg, By Mouth, 2 times a day, PRN as needed for anxiety, 0 Refills, Maintenance, 09/13/21 5:05:00 EDT, Tablet, ; Start Date: 09/13/21 Status: OrderedMiraLax Powder 1 pack/packet = 17 Gm, By Mouth, Daily, 0 Refills, Maintenance, 09/15/21 15:50:00 EDT, Powder, ; Start Date: 09/15/21 Status: Orderedmirtazapine 7.5 mg oral tablet 1 tablet = 7.5 mg, By Mouth, Daily at bedtime, 0 Refills, Maintenance, 03/06/22 0:21:00 EST, ; Start Date: 03/06/22 Status: OrderedMOM Liquid 30 mL, By Mouth, Daily at bedtime, PRN as needed for constipation, Maintenance, 03/11/22 14:28:00 EST, ; Start Date: 03/11/22 Status: OrderedoxyCODONE 5 mg oral tablet 10 mg, 2, tablet, By Mouth, Every 6 hours, PRN, Refills 0, Tot. Refills 0, Maintenance, Pain , Moderate, 03/10/22 11:18:00 EST, ; Start Date: 03/10/22 Status: OrderedoxyCODONE 5 mg oral tablet 10 mg, Tablet, By Mouth, Every 4 hours, PRN for Pain , Severe, Routine, 03/11/22 4:58:00 EST Start Date: 03/11/22 Stop Date: 03/16/22 Status: DiscontinuedSenna 8.6 mg oral tablet 8.6 mg, 1, tablet, By Mouth, Daily at bedtime, Maintenance, 03/11/22 14:26:00 EST, ; Start Date: 03/11/22 Status: Ordered Problem List Condition Confirmation Course [...] adenocarcinoma of upper lobe of left lung ([id number]) Subclavian artery Confirmed Active stenosis, left Tubular adenoma of Confirmed Active colon 1neg stress [id number] Oswestry Disability Index: 58% (26/45; severe disability ); updated [place] Back Pain Disability Scale score: 71 both on 07/20/20 3initial Oswestry Disability Index: 62% ( crippled ) on 06/30/18; initial [place] Back Pain Scale: 81 on goal < 130 smoker, [id number] score 0.6 hip, 5.7 other Procedures Procedure Date Related Diagnosis Body Site Status Right femoral artery cutdown and 03/11/22 Completed repair of the right proximal common femoral artery pseudoaneurysm evacuation of the hematoma. Results Radiology Reports Exam Date Time Procedure Performing Provider Status 03/11/22 3:[address] Angio Pelvis Srinivasa Shook (Cleopatra fisher) Notes:(CT Angio Pelvis) Reason For Exam: R fem pop pain, swelling, ecchymosis;PostopRESULT: CT Angio Pelvis CT Angio Pelvis INDICATION: Refer to EMR; Hx of Present Illness: Pt discharged yesterday post op for Rt groin stent insertion for thrombus. Pt has complications and was admitted to ICU. Pt states she was feeling well and up ambulating with no difficulties. Tonight at 2130 while walking back from bathroom severe pain 10; Reason: Postop; R fem pop pain, swelling, ecchymosis; Clinical Question(s): Hemorrhage Hematoma; R femoral , Hemorrhage/Hematoma COMPARISON: CT abdomen/pelvis 09/13/[address] PET 12/28/2021 TECHNIQUE: Unenhanced axial images were obtained from lower abdomen through the pelvis before, during (arterial) and after (portal venous) the intravenous administration of iodinated contrast. 100 cc of Omnipaque 300 was administered intravenously. Sagittal and coronal maximum intensity projection (MIP) images were reconstructed and rendered in both arterial and venous phases. Weight-based protocol using automatic tube modulation was used to optimize exposure parameters. RADIATION DOSE PARAMETERS: CTDIvol Body: 11.93 mGy, DLP Body: 1506 mGy*cm. FINDINGS: The partially visualized distal abdominal aorta has marked atherosclerotic calcification. Moderate to marked atherosclerotic calcification of the bilateral common iliac arteries and bilateral internal iliac arteries causing at least 50% stenosis of these vessels. A tiny focal dissection of the distal right external iliac artery/proximal right common femoral artery cannot be excluded (series 602 image 279). Active contrast extravasation can be seen surrounding this region and communicating with a large developing soft tissue hematoma that extends anteriorly along the lower right pelvic wall into the right lower pelvis subcutaneous soft tissues measuring approximately 8.7 x 4.8 x 10 cm (series 702 image 330 and series 704 images 42-49). A second region of softtissue hematoma appearing more infiltrative and without contrast opacification is seen extending inferiorly into the right pubic mons and right labial soft tissues measuring approximately 8.4 x 5.6 x 9.4 cm causing a leftward displacement of the right labial soft tissues (series 702 image 480 and series 704 image 58). Diffuse soft tissue edema surrounds these large soft tissue hematomas and extends along the anterolateral right lower pelvic subcutaneous soft tissues. OTHER FINDINGS: Visualized GI tract: No acute findings. Lymph nodes: None enlarged. Peritoneum, omentum and mesentery: No pneumoperitoneum. Reproductive organs: Similar appearance of a known fibroid uterus. Bones: No focal abnormalities IMPRESSION: Active extravasation of contrast at the junction of the right external iliac artery and proximal right common femoral artery with a tiny focal vessel dissection at this site not excluded. Two large soft tissue hematomas in the right groin. The more superior soft tissue hematoma measures 8.7 x 4.8 x 10 cm along the right lower pelvic wall and the more inferior soft tissue hematoma measures 8.4 x 5.6 x 9.4 cm along the right mons pubis and right labial soft tissues. Diffuse swelling of the right labia causes a leftward shift of the right mons pubis and labia. Moderate to marked atherosclerotic calcification of the bilateral common iliac arteries and bilateral internal iliac arteries causing at least 50% stenosis of these vessels. Once acute findings have resolved, consider follow-up nonemergent outpatient Doppler bilateral lower extremity arterial ultrasound as clinically indicated. Dr. Adamaris Dunlap reported the above findings via phone to ordering provider SANTO Sheets on 03/11/2022 at 3:18 AM. I have personally reviewed the images and I agree with this report. WSN: [id number] Ordering Physician: An Sheets Dictated By: Adamaris Dunlap DO Dictated Date/Time: 03/11/22 7:08 am Reviewed By: Kendall Oliveira MD Signed By: Kendall Oliveira MD Signed Date/Time: 03/11/22 7:13 am Transcribed By: SHAHNAZ Transcribed Date/Time: 03/11/22 3:46 am Vital Signs Most recent to oldest 1 2 3 [Reference Range]: Weight 74.5 kg (03/12/22 4:00 AM) Oxygen Saturation [94-100 100 % 100 % 96 % %] (03/15/22 2:33 PM) (03/15/22 11:23 AM) (03/15/22 5:00 AM) Pulse Rate [55-90 bpm] 76 bpm 74 bpm 66 bpm (03/15/22 2:33 PM) (03/15/22 11:23 AM) (03/15/22 5:00 AM) Blood Pressure 138/58 mm Hg 150/80 mm Hg 120/62 mm Hg [90-138/55-84 mm Hg] (03/15/22 2:33 PM) *H* ( 2 5:00 AM) (03/15/22 11:23 AM) Respiratory Rate [16-30 18 br/min 18 br/min 18 br/mi n br/min] (03/15/22 2:33 PM) (03/15/22 2:08 PM) (03/15/22 11:23 AM) Temperature [96.8-100.4 97.3 DegF 97.9 DegF 98.0 Deg F DegF] (03/15/22 2:33 PM) (03/15/22 11:23 AM) (03/15/22 5:00 AM) Liters per Minute 2 L/min 2 L/min 2 L/min (03/12/22 8:00 AM) (03/12/22 7:00 AM) (03/12/22 6:00 AM) Mode of Delivery (Oxygen) Room air Room air Room a ir (03/15/22 2:33 PM) (03/15/22 11:23 AM) (03/15/22 5:00 AM) Blood pressure sites Arm, right Arm, right Arm, right (03/15/22 2:33 PM) (03/15/22 11:23 AM) (03/15/22 5:00 AM) Temperature Route Oral Oral Oral (03/15/22 2:33 PM) (03/15/22 11:23 AM) (03/15/22 5:00 AM) Weight Obtained Via Bed scale (03/12/22 4:00 AM) Social History Social History Type Response Smoking Status Use: 4 or less cigarettes(le ss than 1/4 pack)/day in last 30 days; Former smoker, quit more than 30 days ago; Other: QUIT 2 WEEKS AGO (01/17/2022); PRIOR TO THAT WAS ONLY 2-3 CIG/D X AGE 22; entered on: 01/31/22 Sex Female History and physical note Harvinder Newsome MD: PERFORM Harvinder Newsome MD: PERFORM, SIGN Mercedez SHARPE, Harvinder K: SIGN, VERIFY Harvinder Newsome MD K: VERIFY Arturo SHARPE, Laura: SIGN, MODIFY Arturo SHARPE, Laura: MODIFY, SIGN Davi SHARPE, Haider Moffett: SIGN, MODIFY Dvai SHARPE, Haider Moffett: MODIFY Event Display: History and Physical Hospital Authored Date: [id number] Patient: PRATIBHA ROSSI Age: 67 years Sex: Female : 1955 Associated Diagnoses: None Author: Harvinder Newsome MD Visit Information Consulting Physician: Kortney BLANCHARD Consulted Resident Physician: Dr. Newsome Consulted Attending Physician: Dr. 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 Patient underwent right femoral access for left subclavian artery stenting with Dr. Epstein on 03/07. There is no procedure note in the chart, so the details of the stenting cannot be ascertained. Per the postop check note it was apparent that there was some hematoma evident immediately postoperative.The patient can recommenced anticoagulation on 03/08/2022. Otherwise there was a good angiographic outcome from her procedure with return of her left radial pulse. She was discharged at approximately noon on 03/10/2022. She went to rehab, sat on the toilet and immediately felt excruciating left groin pain with burning and swelling. She denied any shortness of breath, dizziness, feeling faint. She was able to ambulate back to bed but was in excruciating pain. She was transferred back to the emergencydepartment for work-up and evaluation where a CTA revealed active extravasation from the left commonfemoral artery likely at her arterial stab site. Vascular surgery were consulted to manage. Past Medical History Problem list All Problems (Selected) Overweight (BMI 25.0-29.9) / SNOMED CT 1266648999 / Confirmed Vascular bruit overarea of subclavian arteries L & R / SNOMED CT 413705929 / Probable Bruit of left carotid artery / SNOMED CT 0914609487 / Confirmed Chest pain / SNOMED CT 37300421 / Confirmed neg stress echo Chronic low back pain / SNOMED CT 747285945 / Confirmed Decreased range of motion of neck / SNOMED CT 745208164 / Confirmed Decreased range of motion of lumbar spine / SNOMED CT 852229368 / Confirmed Displacement of lumbar intervertebral disc without myelopathy / SNOMED CT 22685574 / Confirmed Femoral/iliac bruit, right / SNOMED CT 1648660453 / Confirmed Myofascial pain syndrome, diffuse / SNOMED CT 96829182 / Confirmed Limitation due to disability / SNOMED CT 400815207 / Confirmed initial Oswestry Disability Index: 62% ( crippled ) on 06/30/18; initial [place] Back Pain Scale: 81 on 06/30/18 Updated Oswestry Disability Index: 58% (26/45; severe disability ); updated [place] Back Pain Disability Scale score: 71 both on 07/20/20 Generalized anxiety disorder / SNOMED CT 39129488 / Confirmed GERD - Gastro-esophageal reflux disease / SNOMED CT 3065316898 / Confirmed Heavy smoker (more than 20 cigarettes per day) / SNOMED CT 34946813 / Confirmed Hyperlipidemia / SNOMED CT 61691519 / Confirmed goal < 130 smoker, FHx Hypertension / SNOMED CT 53174405 / Confirmed Hyponatremia / ICD-9-CM 276.1 / Confirmed Impingement syndrome of right shoulder / SNOMED CT 812317919 / Confirmed Impingement syndrome of shoulder region / SNOMED CT 009489806 / Confirmed Chronic anticoagulation / SNOMED CT 6575237978 / Confirmed Lumbosacral radiculitis / SNOMED CT 16063004 / Confirmed Lumbosacral spondylosis without myelopathy / SNOMED CT 82151263 / Confirmed Macular degeneration / SNOMED CT 527031835 / Confirmed Median nerve compression, left / SNOMED CT 524633224 / Differential Osteopenia / SNOMED CT 294654713 / Confirmed Frax score 0.6 hip, 5.7 other Paroxysmal atrial flutter / SNOMED CT 2529200467 / Confirmed Primary adenocarcinoma of upper lobe of left lung ([id number]) / SNOMED CT 8325891817 / Confirmed Depression, major, recurrent, in partial remission / SNOMED CT 34239059 / Probable Subclavian artery stenosis, left / SNOMED CT 7520823396 / Confirmed Tubular adenoma of colon / SNOMED CT 3048926419 / Confirmed Allergies Allergic Reactions (Selected) Persistent Moderate Tetracycline- Red blotches. Severity Not Documented Adhesive Bandage- No reactions were documented. Cymbalta- No reactions were documented. Doxycycline- Rash. Flexeril- Rash. Nonsteroidal anti-inflammatory agents- [d]wheezing. Penicillin- Rash. Sulfa drugs- No reactions were documented. Current medications (Selected) Inpatient Medications Ordered Acetaminophen Tablet: 975 mg, Tablet, By Mouth, Every 6 hours, PRN for Pain , Mild, Routine, 03/11/22 4:51:00 EST Bisacodyl Supp: 10 mg, Suppository, Rectally, Daily, PRN for Constipation, Routine, 03/11/22 4:51:00EST Docusate Sodium Capsule: 100 mg, Capsule, By Mouth, 2 times a day, Routine, 03/11/22 9:00:00 EST HYDROmorphone Inj: 0.5 mg, Injection, IV Push Slowly, Every 3 hours, PRN for Pain , Severe, Routine,03/11/22 4:51:00 EST LORazepam 0.5 mg oral tablet: 0.5 mg, Tablet, By Mouth, 2 times a day, PRN for Anxiety, Routine, 03/11/22 4:58:00 EST LR 1,000 mL: 1,000 mL, Infusion, IV Infusion, 1,000 mL, 100 mL/hr, Infuse over 10 hr, Continue untilD/C'd Unless duration specified, Routine, 03/11/22 4:51:00 EST, 1.75, m2 Lidocaine 5% Topical: 1 application, Ointment, Topically, Apply to Back, 2 times a day, Routine, 03/11/22 9:00:00 EST MOM Liquid: 30 mL, Suspension, By Mouth, Daily, PRN for Constipation, Routine, 03/11/22 4:51:00 EST MiraLax Powder: 17 Gm, Powder, By Mouth, Daily, Routine, 03/11/22 9:00:00 EST MorPHINE Inj: 4 mg, Injection, IV Push Slowly, Every 5 minutes for 3 doses/times, PRN for Pain , Moderate, and SBP greater than 100, Routine, 03/11/22 1:51:00 EST, Stop date Limited # of times Ondansetron Inj: 4 mg, Injection, IV Push Slowly, Every 30 minutes for 2 doses/times, PRN for Nausea& Vomiting, STAT, 03/11/22 1:21:00 EST, Stop date Limited # of times Ondansetron Inj: 4 mg, Injection, IV Push, Every 8 hours, PRN for Nausea & Vomiting, Routine, 03/11/22 4:51:00 EST Pantoprazole Tablet: 20 mg, EC Tablet, By Mouth, Daily, Indicated for: GERD, Routine, 03/11/22 9:00:00 EST atorvastatin 10 mg oral tablet: 10 mg, Tablet, By Mouth, Daily, Routine, 03/11/22 9:00:00 EST gabapentin 100 mg oral capsule: 100 mg, Capsule, By Mouth, 3 times a day, Routine, 03/11/22 9:00:00 EST mirtazapine 15 mg oral tablet: 7.5 mg, Tablet, By Mouth, Daily at bedtime, Routine, 03/11/22 21:00:00 EST oxyCODONE 5 mg oral tablet: 10 mg, Tablet, By Mouth, Every 6 hours, PRN for Pain , Severe, Routine, 03/11/22 4:58:00 EST Prescriptions Prescribed Senna 8.8 mg/5 mL oral syrup: 10 mL, By Mouth, Daily at bedtime, # 900 mL, 3 Refills, Maintenance, 01/18/22 13:14:00 EDT, [facility], 10 mL By Mouth Daily at bedtime, 163, cm, 01/16/22 7:20:00 EDT, Height, 73, kg, 01/16/22 7:20:00 EDT, Dry Weight atorvastatin 10 mg oral tablet: See Instructions, TAKE ONE TABLET BY MOUTH ONCE DAILY, # 90 Unknown,1 Refills, Maintenance, 02/09/22 18:57:00 EST, [facility], 163, cm, 01/31/22 14:28:00 EST, Height, 72.6, kg, 01/24/22 13:07:00 EST, Dry Weight Documented Medications Documented Acetaminophen: = 975 mg, By Mouth, 3 times a day, PRN Pain , Moderate, 0 Refills, Maintenance, 01/31/22 14:33:00 EST, Partial fill upon patient request if the prescription is for a schedule II opioid drug. Eliquis 5 mg oral tablet: 1 tablet = 5 mg, By Mouth, 2 times a day, # 60 tablet, 5 Refills, Maintenance, 03/05/22 23:57:00 EST, Tablet, Partial fill upon patient request if the prescription is for a schedule II opioid drug. LORazepam 0.5 mg oral tablet: 1 tablet = 0.5 mg, By Mouth, 2 times a day, PRN as needed for anxiety,0 Refills, Maintenance, 09/13/21 5:05:00 EDT, Tablet, Partial fill upon patient request if the prescription is for a schedule II opioid drug. MiraLax Powder: 1 pack/packet = 17 Gm, By Mouth, Daily, 0 Refills, Maintenance, 09/15/21 15:50:00 EDT, Powder, Partial fill upon patient request if the prescription is for a schedule II opioid drug. gabapentin 100 mg oral capsule: 100 mg, 1, capsule, By Mouth, 3 times a day, Refills 0, Maintenance,03/05/22 17:15:00 EST, Partial fill upon patient request if the prescription is for a schedule II opioid drug. lidocaine 5% topical film: Topically, Daily, 0 Refills, Maintenance, 03/05/22 16:21:00 EST, Patch, Partial fill upon patient request if the prescription is for a schedule II opioid drug. mirtazapine 7.5 mg oral tablet: 1 tablet = 7.5 mg, By Mouth, Daily at bedtime, # 30 tablet, 0 Refills, Maintenance, 03/06/22 0:21:00 EST, Partial fill upon patient request if the prescription is for a schedule II opioid drug. oxyCODONE 5 mg oral tablet: 10 mg, 2, tablet, By Mouth, Every 6 hours, PRN, Refills 0, Tot. Refills 0, Maintenance, Pain , Moderate, 03/10/22 11:18:00 EST, Partial fill upon patient request if the prescription is for a schedule II opioid drug. Surgical History Procedure/Surgical Profile Colonoscopy, flexible; with biopsy, single or multiple (61357) on 01/16/2022 at 66 Years. Colonoscopy and extirpation of lesion of colon ([id number]) on 01/16/2022 at 66 Years. Abnormal EMG ([id number]) on 09/21/2013 at 58 Years. Comments: 09/28/2013 10:07 JYOTI Otto MD, Val Swann carpal tunnel colonoscopy on 10/16/2010 at 55 Years. Comments: 10/23/2010 16:57 JYOTI Otto MD, Val Swann Pleet- repeat 5 years for Fhx Bilateral Sacro-Iliac Injection on 07/20/2010 at 55 Years. Parathyroidectomy, single ([id number]) on 06/15/2009 at 54 Years. Bronchoscopy, rigid or flexible, including fluoroscopic guidance, when performed; with computer-assisted, image-guided navigation (List separately in addition to code for primary procedure[s]) (54594). Ankle, right ORIF ([id number]). Social History Former 51-xsvg-yent history quit within the last year No EtOH No drugs Lives with her partner who is older than her, she provides some of her care following recent stroke Social History Alcohol Details: Use: Never. Employment/School Details: Status: Disabled. Exercise Details: Regular exercise: No. Exercise type: stretching. Home/Environment Details: Living situation: Home/Independent. Lives with: Significant other. Nutrition/Health Details: Diet: Regular. Substance Abuse Details: Use: Past. Type: Marijuana. Other: medical marijuana discontinued due to intolerance. Tobacco Details: Use: 4 or less cigarettes(less than 1/4 pack)/day in last 30 days, Former smoker, quit morethan 30 days ago. Other: QUIT 2 WEEKS AGO (01/17/2022); PRIOR TO THAT WAS ONLY 2-3 CIG/D X AGE 22. Details: Use: 5-9 cigarettes (between 1/4 to 1/2 pack)/day in last 30 days. Interested in cessation:Yes. Other: 5 CIG/D X 40 YEARS. Type: Cigarettes. Tobacco use times per day: 1/2-1 ppd x 40 years; currently 5/day. 40 Number of years:. Total pack years: 30. Electronic Cigarette/Vaping Details: Electronic Cigarette Use: Never. . Family History Patient denies any past family history of bleeding of clotting disorders. Review of Systems Constitutional: No fevers, chills, or fatigue Eyes: No changes in vision ENT: No difficulty swallowing or hemoptysis Cardiovascular: No chest pain or palpitations Respiratory: no SOB, cough or wheezes Gastrointestinal: No abdominal pain, nausea, vomiting, diarrhea, or constipation Genitourinary: No dysuria Musculoskeletal: Right groin pain and swelling. Integumentary: no rashes Neurological: no headaches or numbness Endocrine: no excessive thirst or sweating Physical Examination Vitals: Temperature 97.6 (00:47) Systolic Blood Pressure 147 (00:47) Diastolic Blood Pressure 72 (00:47) Pulse 74 (00:47) SpO2 100 (00:47) Respiratory Rate 16 (04:04) Physical Exam: Constitutional: No acute distress, awake, alert and oriented x3 Cardiovascular: Regular rate and rhythm, +S1/S2, no murmurs, rubs, or gallops, no edema, 2+ dorsalispedia bilaterally Respiratory: Clear to auscultation bilaterally, no wheezes, rales, rhonchi, or crackles Abdomen: soft, non-tender, non-distended Gastrointestinal: bowel sounds present Genitourinary: no CVA tenderness Musculoskeletal: no calf tenderness Skin: Right lower quadrant 15 x 6 x 5 cm area of firm but not pulsatile swelling. Overlying ecchymosis extending laterally over the hip then medially to the labia. Neurological: no loss of sensation bilaterally Lymphatic: no lymphedema or hepatosplenomegaly Vascular exam. Bilateral palpable PT and DP pulses. No concerns for distal ischemia. Vital Signs Weight : Weight lb/oz 03/10/2022 5:00 EST Weight lb/oz 154 lb 2 oz . BMI : Body Mass Index 03/05/2022 23:40 EST Body Mass Index 28.88 kg/m2 H . Results Review BLOOD BANK Blood Type A Positive () 03/11/2022 01:21 Antibody Screen Negative () 03/11/2022 01:21 RBC Unit ID [id number] () 03/11/2022 03:54 RBC Available XM () 03/11/2022 03:54 BLOOD COUNT & DIFF WBC 10.1 k/mm3 () 03/11/2022 01:53 RBC 2.79 m/mm3 (Low) 03/11/2022 01:53 Hgb 9.4 Gm/dL (Low) 03/11/2022 01:53 Hct 28.0 % (Low) 03/11/2022 01:53 MCV 100.4 femtoliters (High) 03/11/2022 01:53 MCH 33.7 pg () 03/11/2022 01:53 MCHC 33.6 g/dL () 03/11/2022 01:53 Platelet Count 236 k/mm3 () 03/11/2022 01:53 RDW-SD 47.9 femtoliters (High) 03/11/2022 01:53 MPV 9.0 femtoliters (Low) 03/11/2022 01:53 Nucleated RBC (Automated) 0.0 #/100 WBC'S () 03/11/2022 01:53 Abs. NRBC 0.0 k/mm3 () 03/11/2022 01:53 Abs. Neut 7.8 k/mm3 (High) 03/11/2022 01:53 Abs. Lymph 1.7 k/mm3 () 03/11/2022 01:53 Abs. [place] 0.5 k/mm3 () 03/11/2022 01:53 Abs. Eo 0.0 k/mm3 () 03/11/2022 01:53 Abs. Baso 0.0 k/mm3 () 03/11/2022 01:53 Neut % 77.1 % (High) 03/11/2022 01:53 Lymph % 16.8 % () 03/11/2022 01:53 [place] % 4.7 % () 03/11/2022 01:53 Eos % 0.4 % () 03/11/2022 01:53 Baso % 0.3 % () 03/11/2022 01:53 Imm Gran 0.7 % () 03/11/2022 01:53 Abs. Imm Gran 0.1 k/mm3 () 03/11/2022 01:53 CHEM GENERAL Sodium 133 mmol/L () 03/11/2022 01:53 Potassium 4.2 mmol/L () 03/11/2022 01:53 Chloride 100 mmol/L () 03/11/2022 01:53 Bicarbonate Level 23 mmol/L () 03/11/2022 01:53 Anion Gap 10 () 03/11/2022 01:53 Glucose Level 105 mg/dL (High) 03/11/2022 01:53 BUN 15 mg/dL () 03/11/2022 01:53 Creatinine-Blood 0.7 mg/dL () 03/11/2022 01:53 Estimated GFR Creatinine 90 ML/MIN/1.73 M2 () 03/11/2022 01:53 HEME OTHER Hold Blue Top SPECIMEN DISCARDED AFTER 4 HOURS. () 03/11/2022 01:53 MISC. CHEMISTRY Hold Green Top SPECIMEN DISCARDED AFTER 1 WEEK () 03/11/2022 01:53 7 day results Labs & Documents Imaging : RADIOLOGY 03/11/2022 3:[address] CT Angio Pelvis (In Progress) CTA pelvis filmed in the ED overnight with obvious extravasation of contrast from the right mid common femoral artery overlying the femoral head. Impression and Plan 67-year-old woman with a past medical history of recently diagnosed left upper lobe adenocarcinoma status post radiotherapy in early February, resultant left subclavian steal syndrome and occlusion of her left subclavian artery status post stenting on 03/07/22, atrial flutter on Eliquis, hypertension, hyperlipidemia who represents 12 hours post discharge from the medical service with an expanding right inguinal hematoma. She was vitally stable. Her labs revealed a hemoglobin of 9.4 which was stable from her last set of labs on record here prior to discharge. Her exam was concerning for a palpable, n onpulsatile, not expansile, exquisitely tender right lower quadrant hematoma. Thankfully her leg wasnot threatened and there was palpable distal pulses. CTA obtained in the emergency department showing active extravasation. Given these findings we will admit the patient to the vascular surgery team. She will be kept n.p.o. for probable OR at some point later on today. We will continue to trend the patient's CBC every 6 hours. The medical team was consulted for reevaluation later on today given thatshe was a failed discharge from their service. Plan: - Diet: NPO pending OR - Will add on once operative plan - Medicine consult - Hold Eliquis, continue Plavix. - Bedrest until OR - Pain control: Tyl, Dilaudid - DVT Prophylaxis: SCDs, [place] [phone] with any questions This patient was discussed with ??Alannah .Arturo SHARPE, Laura: PERFORM Event Display: History and Physical Hospital Authored Date: Seen and evaluated on AM rounds, continues with exquisite tenderness to palpation and significant ecchymosis over the right groin. Hemoglobin continues to drop but thankfully patient remains hemodynamically normal without tachycardia or hypotension. Will book for OR for cutdown & repair. Please page Vascular Surgery with any questions or concerns [phone]. Discussed with attending physician Haider Loza MD: PERFORM Event Display: History and Physical Hospital Authored Date: Agree patient seen in the ED. She is remains hemodynamically stable not hypotensive but in significant pain since this developed last evening at her rehabilitation facility. She appears to have a pseudoaneurysm that looks to be a fairly high stick right out or may be beneath the inguinal ligament and remains on dual anticoagulants with Eliquis and Plavix. She has apparently been on Eliquis for quite some time since she had a bout of atrial flutter when she was admitted many months ago for dizziness lightheadedness. Certainly can hold the anticoagulation for now we will hold the Plavix. With the appearance of the large hematoma in the high stick evidence of a pseudoaneurysm I recommended operative repair discussed with the patient she understands she is anemic and will likely require blood transfusion she understands this. The risks of the surgery bleeding and requirement of repair of the artery possibly a patch repair potential complications of the wound wound required for access all reviewed with her she understands and agrees wishes to proceed to soon as possible. We are waitingfor the OR to open up and proceed. I discussed this with her significant other Daisha and also with her brother Gary. Note RandyKaren lowery RN: PERFORM Event Display: Discharge/Transfer Note Hospital Authored Date: [id number] Nursing Discharge Note Entered On: 03/15/2022 15:19 EST Performed On: 03/15/2022 15:18 EST by Karen Padilla RN Nursing Discharge Note 2 Discharge Time : 03/15/2022 17:00 EST Karen Padilla RN - 03/15/2022 17:36 EST Discharge Level of Care at Discharge : [facility] facility Discharge Nursing Homes/Rehab Facilities : [facility] Nursing Patient Left Unit Via : Ambulance Patient Accompanied Off Unit with : Ambulance/Chair Van Personnel Handover Given to Transport Personnel : Yes DC Instructions Provided & Signed by Pt : No Patient Understands D/C Instructions : Yes Patient Instructions Discharge Signed : No Did Pt have Specialty Bed or Wound Vac : No Karen Padilla RN - 03/15/2022 15:18 ESTTaNery Edwards NP: MODIFY, SIGN, PERFORM, MODIFY, MODIFY, MODIFY, MODIFY, MODIFY, MODIFY, MODIFY, SIGN, VERIFY Event Display: Discharge/Transfer Note Hospital Authored Date: [id number] Patient: PRATIBHA RSOSI Age: 67 years Sex: Female : 1955 Associated Diagnoses: None Author: Nery Benitez NP Discharge Information Admission Date: 03/11/2022 Discharge Date 03/15/2022 Primary Care Provider: Kelsie Oliver Principal Discharge Diagnosis Femoral artery pseudo-aneurysm, right: Present on admission - yes. Secondary Discharge Diagnoses Chronic anticoagulation: Present on admission - yes. Depression, major, recurrent, in partial remission: Present on admission - yes. Displacement of lumbar intervertebral disc without myelopathy: Present on admission - yes. General medical: Present on admission - yes. Generalized anxiety disorder: Present on admission - yes. GERD - Gastro-esophageal reflux disease: Present on admission - yes. Heavy smoker (more than 20 cigarettes per day): Present on admission - yes. Hyperlipidemia: Present on admission - yes. Hypertension: Present on admission - yes. Paroxysmal atrial flutter: Present on admission - yes. Subclavian artery stenosis, left: Present on admission - yes. Tubular adenoma of colon: Present on admission - yes. Medications MEDICATION LIST (Selected) Documented Medications Documented Artificial Tears 0.5% Ophth: See Instructions, prn for dryness, Refills 0, Maintenance, 03/14/22 9:22:00 EST, Instructions Replace Required Details, Partial fill upon patient request if the prescription is for a schedule II opioid drug. Eliquis 5 mg oral tablet: 1 tablet = 5 mg, By Mouth, 2 times a day, 5 Refills, Maintenance, 03/05/2223:57:00 EST, Tablet, ; Fleet Enema 19 gm-7 gm rectal enema: 1 each, Rectally, Once, PRN for constipation, Maintenance, 03/11/22 14:29:00 EST, Enema, ; LORazepam 0.5 mg oral tablet: 1 tablet = 0.5 mg, By Mouth, 2 times a day, PRN as needed for anxiety,0 Refills, Maintenance, 09/13/21 5:05:00 EDT, Tablet, ; MOM Liquid: 30 mL, By Mouth, Daily at bedtime, PRN as needed for constipation, Maintenance, 03/11/2214:28:00 EST, ; MiraLax Powder: 1 pack/packet = 17 Gm, By Mouth, Daily, 0 Refills, Maintenance, 09/15/21 15:50:00 EDT, Powder, ; Senna 8.6 mg oral tablet: 8.6 mg, 1, tablet, By Mouth, Daily at bedtime, Maintenance, 03/11/22 14:26:00 EST, ; acetaminophen 325 mg oral tablet: 650 mg, 2, tablet, By Mouth, 3 times a day, PRN, Maintenance, pain/fever, 03/11/22 14:27:00 EST, ; atorvastatin 10 mg oral tablet: 1 tablet = 10 mg, By Mouth, Daily at bedtime, Maintenance, 03/11/22 14:26:00 EST, ; bisacodyl 10 mg rectal suppository: 1 supp = 10 mg, Rectally, Daily, PRN for constipation, Maintenance, 03/11/22 14:29:00 EST, Suppository, ; gabapentin 100 mg oral capsule: 100 mg, 1, capsule, By Mouth, 3 times a day, Refills 0, Maintenance,03/05/22 17:15:00 EST, ; lidocaine 5% topical film: 1 patch, Topically, Daily, 0 Refills, Maintenance, 03/05/22 16:21:00 EST,Patch, ; mirtazapine 7.5 mg oral tablet: 1 tablet = 7.5 mg, By Mouth, Daily at bedtime, 0 Refills, Maintenance, 03/06/22 0:21:00 EST, ; oxyCODONE 5 mg oral tablet: 10 mg, 2, tablet, By Mouth, Every 6 hours, PRN, Refills 0, Tot. Refills 0, Maintenance, Pain , Moderate, 03/10/22 11:18:00 EST, ;. Aware of diagnosis: patient. Procedures Procedure/Surgical History Right femoral artery cutdown and repair of the right proximal common femoral artery pseudoaneurysm evacuation of the hematoma. (SNOMED CT 338416017) performed by Haider Tomlinson MD on 03/11/2022 at 67 Years. Colonoscopy and extirpation of lesion of colon (SNOMED CT 831028077) performed by Mina Muniz MD on 01/16/2022 at 66 Years. Colonoscopy, flexible; with biopsy, single or multiple (CPT4 53317) on 01/16/2022 at 66 Years. Abnormal EMG (SNOMED CT [id number]) on 09/21/2013 at 58 Years. Comments: 09/28/2013 10:07 Val Paredes MD carpal tunnel colonoscopy on 10/16/2010 at 55 Years. Comments: 10/23/2010 16:57 Val Paredes MD Pleet- repeat 5 years for Fhx Bilateral Sacro-Iliac Injection on 07/20/2010 at 55 Years. Parathyroidectomy, single (SNOMED CT 15251460) on 06/15/2009 at 54 Years. Ankle, right ORIF (SNOMED CT 139303837). Bronchoscopy, rigid or flexible, including fluoroscopic guidance, when performed; with computer-assisted, image-guided navigation (List separately in addition to code for primary procedure[s]) (CPT4 46550).. Attending Consultants Juan Antonio SHARPE, Tiffanie Moffett. Allergies Allergic Reactions (Selected) Persistent Moderate Tetracycline- Red blotches. Severity Not Documented Adhesive Bandage- No reactions were documented. Cymbalta- No reactions were documented. Doxycycline- Rash. Flexeril- Rash. Nonsteroidal anti-inflammatory agents- [d]wheezing. Penicillin- Rash. Sulfa drugs- No reactions were documented. Discharge condition: excellent Compared to admission: improved Hospital Course Postoperative Events Unexpected Return to the OR: no. Bleeding required re-operation: no. 45 minutes spent on discharge Pratibha Rossi is a 67yo female with PMHX HTN, HLD, PAfib( on Eliquis, Plavix), Left subclavian arterystenosis and occlusion, MERVIN lung cancer(non-small cell carcinoma s/p transbronchial biopsy(01/19), s/p left proximal subclavian artery stent and cerebral angiography via right femoral arterial approach(03/07/22) . He developed enlarging right groin pain and swelling in the groin while at rehab. 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 RT groin has JARVIS cath, drained 10ml serosang in 24hrs discontinued 03/14 with small amount of serosang drainage noted. Small hematoma noted to medial incision. Case discussed with Dr Tomlinson, patient ready for discharge Physical exam General appearance: No apparent distress, appears stated age, well developed. Head: Normocephalic, atraumatic. Cardiac: RRR, no murmurs Respiratory: Clear to auscultation bilaterally. Abdomen: Soft, nontender, nondistended. No guarding or rebound. No palpable mass. Extremities: Able to move all extremities without difficulty. Warm. Sensorimotor intact to BLE. Neurologic status: Alert and oriented x 3. No focal deficits. Psych: Mood and affect normal. Vascular: R groin: Aquacel intact, clean, dry; soft. Small hematoma noted to medial aspect of incision towards suprapubic area. Extensive ecchymosis noted from right groin extending to suprapubic area and dependently through labia. Tender to touch. Skin intact. No active drainage noted. JARVIS output: 10ml/24H removed with small puncture site draining a small amount of serosang drainage. Right: Palpable femoral/DP/PT/AT Left: Palpable femoral/DP/PT/AT Plan: Discharge today to [facility] Patient to follow up in the outpatient clinic in 2 weeks Continue home Atorvastatin 10mg daily Restart home Eliquis 5mg bid Pain control: Tylenol, gabapentin and Oxycodone(has prescription) Right groin: Betadine paint puncture site, cover with dry dressing and secure. Change daily and prn Aquacel to be removed from right groin on 03/16 Betadine paint to site and cover with dressing if drainage Discharge Plan Discharge Disposition Discharge: Post Acute Care. 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 Change daily and prn Aquacel to be removed from right groin on 03/16 Betadine paint to site and cover with dressing if drainage , Physical Therapy Physical Therapy Evaluation Entered On: 03/13/2022 9:25 EST Performed On: 03/13/2022 9:25 EST by Riley Moore PT Admission Info Full chart review completed : Yes Riley Moore - 03/13/2022 12:38 EST Precautions : WB as tolerated, Other: JARVIS Drain R groin Riley Moore - 03/13/2022 12:46 EST Functional mobility prior to admission : Independent PT assistive devices : None Riley Moore - 03/13/2022 12:34 EST Residence prior to admission : Other: Lives c partner in 1 story house with 2 MAYKEL. Pt is I with ADLs/IADLs. Pt emphasizes that her partner is not able to assist with any lifting or physical assist. Only assist with needs around the house Riley Moore - 03/13/2022 9:28 EST Past medical history : See comment. (Comment: Bruit of left carotid arteryChest painChronic anticoagulationChronic low back painDecreased range of motion of lumbar spineDecreased range of motion of neckDepression, major, recurrent, in partial remissionDisplacement of lumbar intervertebral disc without myelopathyFemoral/iliac bruit, rightGeneralized anxiety disorderGERDHeavy smoker (more than 20 cigarettes per day)HyperlipidemiaHypertensionHyponatremiaImpingement syndrome of right shoulderImpingement syndrome of shoulder regionLimitation due to disabilityLumbosacral radiculitisLumbosacral spondylosis without myelopathyMacular degenerationMedian nerve compression, leftMyofascial pain syndrome, diffuseOsteopeniaOverweight (BMI 25.0-29.9)Paroxysmal atrial flutterPrimary adenocarcinoma of upper lobe of left lung ([id number])Subclavian artery stenosis, leftTubular adenoma of colonVascular bruit overarea of subclavian arteries L & RPast Surgical HistoryColonoscopy and extirpation of lesion of colon: 01/16/22Colonoscopy, flexible; withbiopsy, single or multiple: 01/16/22Abnormal EM09/21/13olonoscopy: 10/16/10ilateral Sacro-Iliac Injection: 07/20/10Parathyroidectomy, single: 06/15/09nkle, right ORIFBronchoscopy, rigid or flexible, including fluoroscopic guidance, when performed; with computer-assisted, image-guided navigation (List separately in addition to code for primary procedure[s]) [Riley Moore - 03/13/2022 9:26EST] ) Admission Information : 67F p/w right femoral artery pseudoaneurysm/hematoma, recent subclavian stent placement with femoral access. Riley Moore - 03/13/2022 9:26 EST Hospital course : 03/11: Right femoral artery cutdown and repair of the right proximal common femoral artery pseudoaneurysm evacuation of the hematoma Riley Moore - 03/13/2022 9:25 EST PT Objective Findings Level of Alertness : Alert and oriented x 3, Follows directions Riley Moore - 03/13/2022 12:38 EST Range of Motion PT Right Lower Extremity : Unable to test Left Lower Extremity : WFL Riley Moore - 03/13/2022 12:38 EST Strength PT Right Lower Extremity : Unable to test Left Lower Extremity : Impaired (Comment: 4- [Riley Moore - 03/13/2022 12:38 EST] ) Riley Moore - 03/13/2022 12:38 EST Balancing Sitting: Static : WFL Sitting: Dynamic : WFL Standing: Static : Impaired (Comment: Fair [Riley Moore - 03/13/2022 12:38 EST] ) Standing: Dynamic : Impaired (Comment: Fair [Oscar Rliey - 03/13/2022 12:38 EST] ) Oscar Riley - 03/13/2022 12:38 EST Other findings : Pt required Min A for bed mobility 2/2 R groin pain and weakness. Pt had 2 drips ofdrainage from tube insertion site which nursing was notified about. Sit-stand and ambulation required CGA with several rest breaks up to 18' total to/from the bathroom. (Comment: Pt reported fatigue at the end of the eval. [Riley Moore - 03/13/2022 12:38 EST] ) Oscar Riley - 03/13/2022 12:38 EST Mobility PT Bed Mobility : Min assist Transfers : Contact guard Ambulation : Contact guard Riley Moore - 03/13/2022 12:38 EST Device/Distance Walker: distance : 10-20 Riley Moore - 03/13/2022 12:38 EST Pain- : Yes Riley Moore - 03/13/2022 12:38 EST Pain PT Grid Location : Groin Oscar Riley - 03/13/2022 12:38 EST Current understanding of basic info : Understands and has skills for self management Educational needs identified : Disease info, Equipment use, Exercise, Safety Barriers to learning PT : None Teaching Method : Verbal Learning method preferred : Listening Education given : RW use, pain, drain management, safety, POC Who was educated : Patient Caregiver Demonstration of Learning : Needs practice/reinforcement Riley Moore 03/13/2022 12:38 EST PT Plan Treatment Indicated : Yes Comments on treatment indicated : 67F p/w right femoral artery pseudoaneurysm/hematoma, recent subclavian stent placement with femoral access. Pt indicated to improve strength, bed mob, transfers, and ambulation. Problems : Impaired strength/ROM, Impaired functional mobility, Impaired balance, Difficulty walking Plan of care PT : Gait training, Transfer training, Therapeutic exercise, Functional Activities, Balance training Distance pt will ambulate : 50 Goals Patient/Family : Return home senior living PT goals : At baseline for functional mobility Equipment : Walker Frequency and duration of treatment. 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 Report sent to all consultants: Eli BLANCHARD, Nery.Randy GIRON, Karen: PERFORM Event Display: Patient Education/Instruction Authored Date: [id number] Inpatient Adult Discharge Instructions [address] [address] Name: PRATIBHA ROSSI : 1955 Visit: 03/11/2022 04:21:00 Current Date: 03/15/2022 15:55 Account: [id number] Inpatient Adult Discharge Instructions We would like [...] and their families. Surveys are administered by [employer] ?? If further treatment with your primary care physician or another doctor is recommended, it is important for you to keep the appointment. Call your primary care physician or return to the Emergency Department immediately if your condition worsens, fails to improve, or new symptoms develop. If you need to find a doctor, you can call [facility] for a referral at [phone] or toll free at [phone]) or log in to [email or web address].. ?? You can view and manage your care through the patient portal or by using a health care karen of your choosing. [employer] is a website that allows you to securely view your medical information including your hospital discharge summary, office visit summaries, medications and follow-up visits. You can also request appointments, renew medications, and request access to your medical information using a health care karen of your choosing, or just ask a question. You can enroll at [email or web address] or register during your next office visit. You have been discharged from [facility], Patient Care Unit: S3. If you have any questions regarding these instructions after you leave, please call us and we will be happy to assist you. 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 You may have had other tests and procedures not included in this list. Please discuss all test results with your provider. BUN CBC CBC w/ Differential COVID-19 (2019 Novel Coronavirus) PCR COVID-19 (NOVEL CORONAVIRUS), PCR Creatinine Electrolytes Glucose Level HOLD BLUE TUBE HOLD GREEN TUBE Ionized Calcium Lytes Magnesium Level Phosphorus Level PT (INR) PTT Type and Screen CT Angio Pelvis Primary Care Provider Kelsie Oliver Advance Directive Health Care Proxy on File Yes - Health Care Proxy No qualifying data available. Discharge Vitals Temperature: 97.3 DegF Weight: 74.5 kg Pulse Rate: 76 bpm ?? Respiratory Rate: 18 br/min ?? Systolic Blood Pressure: 138 mm Hg ?? Diastolic Blood Pressure: 58 mm Hg ?? Oxygen Saturation: 100 % ?? Studies Pending All tests and labs ordered during this hospital stay have been completed unless listed below. Pleasediscuss all pending results with your provider listed above in these instructions. ?? BUN CBC COVID-19 (2018 Novel Coronavirus) PCR Creatinine Electrolytes (Lytes) Ionized Calcium Magnesium Level Phosphorus Level RBCs for Surgery RBCs on Hold What to do next Instructions From Your Doctor Discharge Orders Scheduled Follow-Up Appointments Saturday 1:00 PM EST ?? With: Colin BLANCHARD, Lulú Hopkins Where: [facility] [address] [place] [address]- Saturday 12:45 PM EST ?? With: Sean BLANCHARD, Marah Nolan Where: [facility] [address] [place] [address]- You Need to Schedule the Following Appointments Follow Up with??As Needed When?? Follow Up with??Jagjit WEAVER, Kelsie Parks When?? Where: ?? Discharge Medications PRATIBHA ROSSI :1955 Visit Date:03/11/2022 Medications: Please continue your medications until treatment is completed or stopped by your provider. Medications not listed below should be discontinued. Discuss any questions related to medications with your provider. What How Much When Instructions Next Dose Changed Acetaminophen (acetaminophen 325 mg oral tablet) 2 tab(s) Oral 3 times a day as needed for pain/fever Changed Atorvastatin (atorvastatin 10 mg oral tablet) 1 tab(s) Oral Daily at Bedtime Changed Lidocaine Topical (lidocaine 5% topical film) 1 patch Topically Daily Changed Senna (Senna 8.6 mg oral tablet) 1 tab(s) Oral Daily at Bedtime Unchanged apixaban (Eliquis 5 mg oral tablet) 1 tab(s) Oral Twice a day Unchanged Bisacodyl (bisacodyl 10 mg rectal suppository) 1 suppository(ies) Per rectum Daily as needed for for constipation Unchanged Gabapentin (gabapentin 100 mg oral capsule) 1 capsule Oral 3 times a day Unchanged Hydroxypropyl Methylcellulose Ophthalmic (Artificial Tears 0.5% Ophth) See instructions prn for dryness ?? Unchanged Lorazepam (LORazepam 0.5 mg oral tablet) 1 tab(s) Oral Twice a day as needed for as needed for anxiety Unchanged Milk of Magnesia (MOM Liquid) 30 Milliliter Oral Daily at Bedtime as needed for as needed for constipation Unchanged Mirtazapine (mirtazapine 7.5 mg oral tablet) 1 tab(s) Oral Daily at Bedtime Unchanged Oxycodone (oxyCODONE 5 mg oral tablet) 2 tab(s) Oral Every 6 hours as needed for Pain , Moderate Unchanged Polyethylene Glycol 3350 (MiraLax Powder) 17 gram Oral Daily Unchanged Sodium Biphosphate-Sodium Phosphate (Fleet Enema 19 gm-7 gm rectal enema) 1 Each Per rectum Once as needed for for constipation Test Results Below is a partial list of the most recent Laboratory test results done prior to this discharge. You may have had other tests and procedures not included in this list. Please discuss all test results with your provider. RBC Available - RE (03/11/2022) RBC Unit ID - [id number] (03/11/2022) BUN (03/15/2022) ???BUN - 11 mg/dL CBC (03/15/2022) ???WBC - 6.9 k/mm3???RBC - 2.63 m/mm3???Hgb - 8.6 Gm/dL???Hct - 25.9 %???MCV - 98.5 femtoliters???MCH - 32.7 pg???MCHC - 33.2 g/dL???Platelet Count - 266 k/mm3???RDW-SD - 52.6 femtoliters???MPV - 9.0 femtoliters???Nucleated RBC (Automated) - 0.0 #/100 WBC'S???Abs. NRBC - 0.0 k/mm3 CBC w/ Differential (03/11/2022) ???WBC - 10.1 k/mm3???RBC - 2.79 m/mm3???Hgb - 9.4 Gm/dL???Hct - 28.0 %???MCV - 100.4 femtoliters???MCH - 33.7 pg???MCHC - 33.6 g/dL???Platelet Count - 236 k/mm3???RDW-SD - 47.9 femtoliters???MPV - 9.0femtoliters???Nucleated RBC (Automated) - 0.0 #/100 WBC'S???Abs. NRBC - 0.0 k/mm3???Abs. Neut - 7.8 k /mm3???Abs. Lymph - 1.7 k/mm3???Abs. [place] - 0.5 k/mm3???Abs. Eo - 0.0 k/mm3???Abs. Baso - 0.0 k/mm3???Neut % - 77.1 %???Lymph % - 16.8 %???[place] % - 4.7 %???Eos % - 0.4 %???Baso % - 0.3 %???Imm Gran - 0.7 %???Abs. Imm Gran - 0.1 k/mm3 COVID-19 (2019 Novel Coronavirus) PCR (03/15/2022) ???COVID-19 PCR Specimen Source - NASAL???COVID-19 PCR Result - NEGATIVE COVID-19 (NOVEL CORONAVIRUS), PCR (03/15/2022) ???COVID-19 by RT-PCR - NEGATIVE Creatinine (03/15/2022) ???Creatinine-Blood - 0.8 mg/dL???Estimated GFR Creatinine - 77 ML/MIN/1.73 M2 Electrolytes (03/11/2022) ???Sodium - 133 mmol/L???Potassium - 4.2 mmol/L???Chloride - 100 mmol/L???Bicarbonate Level - 23 mmol/L???Anion Gap - 10 Glucose Level (03/11/2022) ???Glucose Level - 105 mg/dL HOLD BLUE TUBE (03/11/2022) ???Hold Blue Top - SPECIMEN DISCARDED AFTER 4 HOURS. HOLD GREEN TUBE (03/11/2022) ???Hold Green Top - SPECIMEN DISCARDED AFTER 1 WEEK Ionized Calcium (03/15/2022) ???Calcium, Ionized pH Corrected - 1.20 mmol/L Lytes (03/15/2022) ???Sodium - 131 mmol/L???Potassium - 4.5 mmol/L???Chloride - 99 mmol/L???Bicarbonate Level - 26 mmol/L???Anion Gap - 6 Magnesium Level (03/15/2022) ???Magnesium - 1.9 mg/dL Phosphorus Level (03/15/2022) ???Phosphorus - 4.2 mg/dL PT (INR) (03/14/2022) ???INR - 1.0???Protime (PT) - 10.1 seconds PTT (03/14/2022) ???APTT - 28.2 seconds Type and Screen (03/11/2022) ???Blood Type - A Positive???Antibody Screen - Negative Allergies (NKA means No Known Allergies) tetracycline??(red [...] adenocarcinoma of upper lobe of left lung ([id number])?? Subclavian artery stenosis, left?? Tubular adenoma of colon?? Vascular bruit overarea of subclavian arteries L & R?? Education Materials Below is the list of Educational Leaflet Providered with your Discharge Instructions. Discharge Instructions: Caring for Your Wound?? Valuables and Belongings I fully understand and agree that [facility] accepts no responsibility for all my personal [...] to send valuables and belongings home. ?? Date for Pt to Sign Valuables/Belongings: 03/15/22 14:33:00 ?? Other Discharge Information ? Case Management Discharge Plan?? Discharge Plan?? Discharge Agency Information?? Discharge Level of Care at Discharge: [facility] facility Name of Agency #1: [facility] Facility [facility] ??[phone] Service Start Date and Time #1: 03/15/22 15:30:00 Mode of Transportation Arranged: Ambulance Service Categories #1: Occupational Therapy, Physical Therapy, Nursing Home Discharge Arranged Transport Date/Time: 03/15/22 15:30:00 ?? Discharge Nursing Homes/Rehab Facilities: [facility] ? Pulmonary Rehab Status?? Pulmonary Rehab Discharge Status?? Respiratory Rate: 18 br/min ? Common Emergency Awareness Tips IS [...] are strongly encouraged to quit. Please call [employer] [facility] at [phone] or [phone] ([phone]) or log in to [email or web address] for referrals to smoking cessation programs. ?? The National Suicide Prevention Hotline is available 08/10 if you or someone you know needs to find areason to keep living. By calling 1-882-804-[place] (3144) you'll be connected to a skilled, trained counselor at a crisis center in your area. INPATIENT DISCHARGE INSTRUCTIONS SIGNATURE PAGE PRATIBHA ROSSI Location:[facility] Registration Date and Time:03/11/2022 04:[address] [facility] Primary Care Physician: Kelsie Oliver, I PRATIBHA ROSSI, have received the above patient education materials/instructions and have verbalized understanding. If ambulance or transport services are being used I further acknowledge being given a choice of service. ?? If you need to contact me, please call me at this number: . Patient/Master [place] Name: Patient/Master [place] Signature: Relationship to Patient: Witness Name/Signature: Date: Karen Padilla RN: PERFORM Event Display: Patient Education/Instruction Authored Date: [id number] Inpatient Adult Discharge Instructions [address] [address] Name: PRATIBHA ROSSI : 1955 Visit: 03/11/2022 04:21:00 Current Date: 03/15/2022 15:27 Account: [id number] Inpatient Adult Discharge Instructions We would like [...] and their families. Surveys are administered by [employer]. ?? If further treatment with your primary care physician or another doctor is recommended, it is important for you to keep the appointment. Call your primary care physician or return to the Emergency Department immediately if your condition worsens, fails to improve, or new symptoms develop. If you need to find a doctor, you can call [facility] for a referral at [phone] or toll free at [phone] ([phone]) or log in to [email or web address] ?? You can view and manage your care through the patient portal or by using a health care karen of your choosing. [employer] is a website that allows you to securely view your medical information including your hospital discharge summary, office visit summaries, medications and follow-up visits. You can also request appointments, renew medications, and request access to your medical information using a health care karen of your choosing, or just ask a question. You can enroll at [email or web address] or register during your next office visit. You have been discharged from [facility], Patient Care Unit: S3. If you have any questions regarding these instructions after you leave, please call us and we will be happy to assist you. 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 You may have had other tests and procedures not included in this list. Please discuss all test results with your provider. BUN CBC CBC w/ Differential COVID-19 (2019 Novel Coronavirus) PCR COVID-19 (NOVEL CORONAVIRUS), PCR Creatinine Electrolytes Glucose Level HOLD BLUE TUBE HOLD GREEN TUBE Ionized Calcium Lytes Magnesium Level Phosphorus Level PT (INR) PTT Type and Screen CT Angio Pelvis Primary Care Provider Kelsie Oliver Advance Directive Health Care Proxy on File Yes - Health Care Proxy No qualifying data available. Discharge Vitals Temperature: 97.3 DegF Weight: 74.5 kg Pulse Rate: 76 bpm ?? Respiratory Rate: 18 br/min ?? Systolic Blood Pressure: 138 mm Hg ?? Diastolic Blood Pressure: 58 mm Hg ?? Oxygen Saturation: 100 % ?? Studies Pending All tests and labs ordered during this hospital stay have been completed unless listed below. Pleasediscuss all pending results with your provider listed above in these instructions. ?? BUN CBC COVID-19 (2019 Novel Coronavirus) PCR Creatinine Electrolytes (Lytes) Ionized Calcium Magnesium Level Phosphorus Level RBCs for Surgery RBCs on Hold What to do next Instructions From Your Doctor Discharge Orders Scheduled Follow-Up Appointments Saturday 1:00 PM EST ?? With: Lulú Shaw NP Where: [facility] [address] [place] [address]- Saturday 12:45 PM EST ?? With: Marah Estrada NP Where: [facility] [address] [place] [address]- You Need to Schedule the Following Appointments Follow Up with??As Needed When?? Follow Up with??Kelsie Oliver When?? Where: ?? Discharge Medications PRATIBHA ROSSI :1955 Visit Date:03/11/2022 Medications: Please continue your medications until treatment is completed or stopped by your provider. Medications not listed below should be discontinued. Discuss any questions related to medications with your provider. What How Much When Instructions Next Dose Changed Acetaminophen (acetaminophen 325 mg oral tablet) 2 tab(s) Oral 3 times a day as needed for pain/fever as needed Changed Atorvastatin (atorvastatin 10 mg oral tablet) 1 tab(s) Oral Daily at Bedtime 03/15 Changed Lidocaine Topical (lidocaine 5% topical film) 1 patch Topically Daily 03/16 Changed Senna (Senna 8.6 mg oral tablet) 1 tab(s) Oral Daily at Bedtime 03/15 Unchanged apixaban (Eliquis 5 mg oral tablet) 1 tab(s) Oral Twice a day 03/15 Unchanged Bisacodyl (bisacodyl 10 mg rectal suppository) 1 suppository(ies) Per rectum Daily as needed for for constipation as needed Unchanged Gabapentin (gabapentin 100 mg oral capsule) 1 capsule Oral 3 times a day 03/15 Unchanged Hydroxypropyl Methylcellulose Ophthalmic (Artificial Tears 0.5% Ophth) See instructions prn for dryness ?? see instructions Unchanged Lorazepam (LORazepam 0.5 mg oral tablet) 1 tab(s) Oral Twice a day as needed for as needed for anxiety as needed Unchanged Milk of Magnesia (MOM Liquid) 30 Milliliter Oral Daily at Bedtime as needed for as needed for constipation as needed Unchanged Mirtazapine (mirtazapine 7.5 mg oral tablet) 1 tab(s) Oral Daily at Bedtime 03/15 Unchanged Oxycodone (oxyCODONE 5 mg oral tablet) 2 tab(s) Oral Every 6 hours as needed for Pain , Moderate as needed Unchanged Polyethylene Glycol 3350 (MiraLax Powder) 17 gram Oral Daily 03/16 Unchanged Sodium Biphosphate-Sodium Phosphate (Fleet Enema 19 gm-7 gm rectal enema) 1 Each Per rectum Once as needed for for constipation as needed Test Results Below is a partial list of the most recent Laboratory test results done prior to this discharge. You may have had other tests and procedures not included in this list. Please discuss all test results with your provider. RBC Available - RE (03/11/2022) RBC Unit ID - [id number] (03/11/2022) BUN (03/15/2022) ???BUN - 11 mg/dL CBC (03/15/2022) ???WBC - 6.9 k/mm3???RBC - 2.63 m/mm3???Hgb - 8.6 Gm/dL???Hct - 25.9 %???MCV - 98.5 femtoliters???MCH - 32.7 pg???MCHC - 33.2 g/dL???Platelet Count - 266 k/mm3???RDW-SD - 52.6 femtoliters???MPV - 9.0 femtoliters???Nucleated RBC (Automated) - 0.0 #/100 WBC'S???Abs. NRBC - 0.0 k/mm3 CBC w/ Differential (03/11/2022) ???WBC - 10.1 k/mm3???RBC - 2.79 m/mm3???Hgb - 9.4 Gm/dL???Hct - 28.0 %???MCV - 100.4 femtoliters???MCH - 33.7 pg???MCHC - 33.6 g/dL???Platelet Count - 236 k/mm3???RDW-SD - 47.9 femtoliters???MPV - 9.0femtoliters???Nucleated RBC (Automated) - 0.0 #/100 WBC'S???Abs. NRBC - 0.0 k/mm3???Abs. Neut - 7.8 k /mm3???Abs. Lymph - 1.7 k/mm3???Abs. [place] - 0.5 k/mm3???Abs. Eo - 0.0 k/mm3???Abs. Baso - 0.0 k/mm3???Neut % - 77.1 %???Lymph % - 16.8 %???[place] % - 4.7 %???Eos % - 0.4 %???Baso % - 0.3 %???Imm Gran - 0.7 %???Abs. Imm Gran - 0.1 k/mm3 COVID-19 (2019 Novel Coronavirus) PCR (03/15/2022) ???COVID-19 PCR Specimen Source - NASAL???COVID-19 PCR Result - NEGATIVE COVID-19 (NOVEL CORONAVIRUS), PCR (03/15/2022) ???COVID-19 by RT-PCR - NEGATIVE Creatinine (03/15/2022) ???Creatinine-Blood - 0.8 mg/dL???Estimated GFR Creatinine - 77 ML/MIN/1.73 M2 Electrolytes (03/11/2022) ???Sodium - 133 mmol/L???Potassium - 4.2 mmol/L???Chloride - 100 mmol/L???Bicarbonate Level - 23 mmol/L???Anion Gap - 10 Glucose Level (03/11/2022) ???Glucose Level - 105 mg/dL HOLD BLUE TUBE (03/11/2022) ???Hold Blue Top - SPECIMEN DISCARDED AFTER 4 HOURS. HOLD GREEN TUBE (03/11/2022) ???Hold Green Top - SPECIMEN DISCARDED AFTER 1 WEEK Ionized Calcium (03/15/2022) ???Calcium, Ionized pH Corrected - 1.20 mmol/L Lytes (03/15/2022) ???Sodium - 131 mmol/L???Potassium - 4.5 mmol/L???Chloride - 99 mmol/L???Bicarbonate Level - 26 mmol/L???Anion Gap - 6 Magnesium Level (03/15/2022) ???Magnesium - 1.9 mg/dL Phosphorus Level (03/15/2022) ???Phosphorus - 4.2 mg/dL PT (INR) (03/14/2022) ???INR - 1.0???Protime (PT) - 10.1 seconds PTT (03/14/2022) ???APTT - 28.2 seconds Type and Screen (03/11/2022) ???Blood Type - A Positive???Antibody Screen - Negative Allergies (NKA means No Known Allergies) tetracycline??(red [...] adenocarcinoma of upper lobe of left lung ([id number])?? Subclavian artery stenosis, left?? Tubular adenoma of colon?? Vascular bruit overarea of subclavian arteries L & R?? Education Materials Below is the list of Educational Leaflet Providered with your Discharge Instructions. Discharge Instructions: Caring for Your Wound?? Valuables and Belongings I fully understand and agree that [facility] accepts no responsibility for all my personal [...] to send valuables and belongings home. ?? Date for Pt to Sign Valuables/Belongings: 03/15/22 14:33:00 ?? Other Discharge Information ? Case Management Discharge Plan?? Discharge Plan?? Discharge Agency Information?? Discharge Level of Care at Discharge: [facility] facility Name of Agency #1: [facility] Discharge Transportation Arranged: [facility] [address] [facility] ??[phone] Service Start Date and Time #1: 03/15/22 15:30:00 Mode of Transportation Arranged: Ambulance Service Categories #1: Occupational Therapy, Physical Therapy, Nursing Home Discharge Arranged Transport Date/Time: 03/15/22 15:30:00 ?? Discharge Nursing Homes/Rehab Facilities: [facility] ? Pulmonary Rehab Status?? Pulmonary Rehab Discharge Status?? Respiratory Rate: 18 br/min ? Common Emergency Awareness Tips IS [...] are strongly encouraged to quit. Please call [facility] at [phone] or [phone] ([phone]) or log in to [email or web address] for referrals to smoking cessation programs. ?? The National Suicide Prevention Hotline is available 08/10 if you or someone you know needs to find areason to keep living. By calling 4-580-047-[place] (1079) you'll be connected to a skilled, trained counselor at a crisis center in your area. INPATIENT DISCHARGE INSTRUCTIONS SIGNATURE PAGE PRATIBHA ROSSI Location:[facility] Registration Date and Time:03/11/2022 04:21 EST Primary Care Physician: Kelsie Oliver, I PRATIBHA ROSSI, have received the above patient education materials/instructions and have verbalized understanding. If ambulance or transport services are being used I further acknowledge being given a choice of service. ?? If you need to contact me, please call me at this number: . Patient/Master [place] Name: Patient/Master [place] Signature: Relationship to Patient: Witness Name/Signature: Date: Nery Benitez NP: PERFORM Event Display: Patient Education Leaflets Authored Date: [id number] Discharge Instructions: Caring for Your Wound ?? [id number] Discharge Instructions: Caring for Your Wound Taking proper care of your wound will help it heal. Your healthcare provider or nurse may show you specifically how to clean and dress the wound and how to tell if the wound is healing normally. This sheet will help you remember those guidelines when you are at home. Getting ready ??? Put pets and children in another room, away from your work area. ??? Wash your hands before touching any of your supplies: o Turn on the water. o Wet your hands and wrists. o Use liquid soap from a pump dispenser. Work up a lather. o Scrub your hands thoroughly. o Rinse your hands with your fingers pointing toward the drain. o Dry your hands with a clean cloth or paper towel. Use this towel to turn off the faucet. o Remember, once you have washed your hands, don???t touch anythingother than your supplies. Wash your hands again if you touch anything, like furniture or your clothes. ??? Clean your work area: o Clean washable surfaces with soap and water, and dry with a clean cloth or paper towel. o Wipe surfaces that are not washable (like fabric or wood) so that they are free of dust.??Spread a clean cloth or paper towel over your work surface. o Move away from the clean surface, if you need to cough or sneeze. ??? Gather your bandage supplies: o Gauze dressing or other bandage material o Medical tape o Disposable gloves ??? Wash your hands again. ?? Dressing the wound ??? Remove the old dressing: o Put on disposable gloves if you???re dressing a wound for someone else or if your wound is infected. o Pull gently toward the wound to loosen the tape. o One layer at a time, gently remove the dressing. o If you have a drain or tube, be careful not topull on it. o Look at the dressing. Make sure that you are seeing a decreasing amount of blood, and that the blood is turning into a clear, jordyn fluid. o If your wound has stitches, look for loose??ones. o Put the dressing in a plastic bag. Then remove your gloves. ??? Inspect the wound. Look for signs that it isn't healing normally. A wound that isn???t healing properly may be dark in color or have white streaks. ??? Dress the wound: o Wash your hands again. o Clean and dress the wound as you [place] by your healthcare provider or nurse. o If??you???re dressing a wound for someone else or if your wound is infected, put on a new pair of disposable gloves. o If you have a drain or tube, be careful not to pull on it. ??? Discard any used materials or trash in a sealed plastic bag before placingin a trash can. ?? Follow-up Make a follow-up appointment, or as directed by your healthcare provider. ?? When to call your healthcare provider Call your healthcare provider right away if you have any of the following: ??? Shaking chills or fever above 100.4??F ( 38??C) ??? Bleeding that soaks the dressing ??? Stitches that are pulling away from the wound or pulling apart ??? [place] fluid weeping from the wound ??? Increased drainage from the wound or drainage that is yellow, yellow-green, or smelly ??? Increased swelling, pain, or redness inthe skin around the wound ??? A change in the color or size??of the wound ??? Increased fatigue ??? Loss of appetite ?? Last Reviewed Date: 2019 ?? 9851-1016 The [employer]. All rights reserved. This information is not intended as a substitute for professional medical care. Always follow your healthcare professional's instructions. ?? Event Display: Cardiac Rhythm Strips Authored Date: [id number] Hospital Progress note Tj Pang MD: PERFORM Event Display: Progress Note Hospital Authored Date: [id number] Patient: ??PRATIBHA ROSSI ? Age:??67 Years?Sex:??Female?:??1955?? Subjective Patient seen and examined and care discussed with nursing.?? Doing very well.?? Vascular team have removed the??right groin??drain this morning.?? Denies any back pain. Review of Systems Constitutional:??No weight loss, fever, chills, weakness or fatigue. Eyes:??No visual loss, blurred vision, double vision or yellow sclera ENT:??No hearing loss, sneezing, congestion, runny nose or sore throat. Respiratory:??No shortness of breath, cough or sputum production. Cardiovascular:??No chest pain, chest pressure or chest discomfort. No palpitations or pedal edema. Gastrointestinal:??No anorexia, nausea, vomiting or diarrhea. No abdominal pain or blood in stool. Genitourinary:??No burning micturition. No urinary frequency or incontinence. Neurologic:??No headache, dizziness, syncope, unilateral weakness, ataxia, numbness or tingling in the extremities. Musculoskeletal:??Minimal right groin pain. Psychiatric:??No depression or anxiety. Objective ?? Physical Exam Constitutional: Alert, in no distress. Mental Status: Oriented to person, place and time. Head: Normocephalic. Eyes: Pupils are equal, round and reactive to light. Ear, Nose and Throat: Oropharynx clear, mucous membranes moist. Neck: Supple, Full range of motion. Respiratory: Clear to auscultation. No wheezing, rales or rhonchi. Cardiovascular: S1 S2 regular. No murmurs, rubs or gallops. Gastrointestinal: Abdomen soft, non-tender, non-distended. Normal bowel sounds. No Genitourinary: Ecchymosis??on the right groin as well as??suprapubic area Neurologic: Cranial nerves II-XII grossly intact. No focal neurological deficits. Assessment/Plan 67-year-old female with hypertension, hyperlipidemia, atrial flutter, chronic hyponatremia, lumbar spinal stenosis, fibromyalgia, recently diagnosed subclavian steal syndrome with left upper weakness and was undergoing work-up when she was found to have a left lung mass that eventually was diagnosed as invasive adenocarcinoma for which she undergone??radiation therapy (02/15 - 02/28),[facility]-sided weakness.?? During this hospitalization??she underwent subclavian??stent placement by via right femoral access.?Patient went to??rehab and came back on the same day with pain in the right groin and was found to have right femoral artery pseudoaneurysm.?? Medicine consulted for comanagement of her medical conditions. ?? 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 Jay on??03/11/22.?Patient has tolerated procedure well??reporting some pain at the right femoral site.?PICC line was removed by??surgeryteam this morning??management per primary??surgical team. ?? Paroxysmal atrial flutter (I48.92):??Patient acutely atrial fibrillation currently remaining in sinus rhythm.??Her apixaban was held at the time of admission due to hematoma.??It might be reasonable tocontinue to hold??during the acute illness??and revisit that at a later date. Certainly we want vascular surgery??input also??on the??best timing to restart anticoagulation. ??Vascular team planning onresuming??apixaban at the time of discharge ?? Subclavian artery stenosis, left (I77.1):??Patient is status post stenting??by Dr. Epstein??with good angiographic results. No change in the management. ?? Depression, major, recurrent, in partial remission (F33.41):??Patient is on mirtazapine 7.5 mg p.o. at bedtime which will be continued in the hospital. ?? Displacement of lumbar intervertebral disc without myelopathy (M51.26):??Patient receives??regular??epidural as well as SI joint injection from her pain specialist.?Has significant back pain yesterday but seems to be better today.?? Will encourage ambulation. ?? Generalized anxiety disorder (F41.1):??She takes??mirtazapine which will be continued. ?? Hypertension (I10):??Patient does not take any antihypertensive medications and her blood pressure is currently well controlled.??We will continue to monitor. ?? Hyperlipidemia (E78.5):??Patient was resumed on her home dose of atorvastatin. ?? Surgical team planning on discharge??later today which I agree. ?? Toby Guerrero RN: VERIFY, PERFORM, SIGN Event Display: [facility] Note [facility] Authored Date: Patient: PRATIBHA ROSSI Age: 67 years Sex: Female : 1955 Associated Diagnoses: None Author: Toby Guerrero RN Findings Problem Related to Alteration in Tissue Perfusion : Alteration in Tissue Perfusion 03/14/2022 9:00 EST Alteration Tissue Perfusion related to Vascular Procedure Goals & Outcomes: Tissue perfusion Pt will maintain optimal perfusion to vital organs Interventions: Tissue Perfusion Assess/Monitor activity tolerance, Assess/Monitor CMS to affected extremity, Assess/Monitor mental status, Monitor labs & report variances to provider Goals/Interventions, Tissue Perfusion Yes Tissue Perfusion, Problem Start 03/14/2022 9:00 Reviewed Plan with, Tissue Perfusion Patient Patient Progression, Tissue Perfusion Pt progressing according to plan . Evaluation Patient is alert and oriented x3. Tele: SR. Denies CP. C/o lower back and R groin pain and medicatedwith oxycodone and APAP with + effect. JARVIS drain drained 7.5 cc red solored fluid and was d/c'd by vascular this afternoon. Medicated at this time with Zofran for nausea. OOB with one assist and walker.Abdomen soft/nt/nd + bowel sounds x4. LBM 03/13/22, + voiding BRP. Continue to monitor . Bird SHARPE, Tj: PERFORM Event Display: [facility] Note [facility] Authored Date: Patient: ??PRATIBHA ROSSI ? Age:??67 Years?Sex:??Female?:??1955?? Subjective Patient seen and examined care discussed with nursing. ??Her back pain now much improved.?? Still has some pain in the right groin area but otherwise doing well. Review of Systems Constitutional:??No weight loss, fever, chills, weakness or fatigue. Eyes:??No visual loss, blurred vision, double vision or yellow sclera ENT:??No hearing loss, sneezing, congestion, runny nose or sore throat. Respiratory:??No shortness of breath, cough or sputum production. Cardiovascular:??No chest pain, chest pressure or chest discomfort. No palpitations or pedal edema. Gastrointestinal:??No anorexia, nausea, vomiting or diarrhea. No abdominal pain or blood in stool. Neurologic:??No headache, dizziness, syncope, unilateral weakness, ataxia, numbness or tingling in the extremities. Musculoskeletal:??Back pain now much improved. ??Minimal pain in the right groin area. Psychiatric:??No depression or anxiety. Objective ?? Physical Exam Constitutional: Alert, in no distress. Mental Status: Oriented to person, place and time. Head: Normocephalic. Eyes: Pupils are equal, round and reactive to light. Ear, Nose and Throat: Oropharynx clear, mucous membranes moist. Neck: Supple, Full range of motion. Respiratory: Clear to auscultation. No wheezing, rales or rhonchi. Cardiovascular: S1 S2 regular. No murmurs, rubs or gallops. Gastrointestinal: Abdomen soft, non-tender, non-distended. Normal bowel sounds. Neurologic: Cranial nerves II-XII grossly intact. No focal neurological deficits. Musculoskeletal: JARVIS drain to right groin. Psychiatric: Normal mood and affect Assessment/Plan ?? 67-year-old female with hypertension, hyperlipidemia, atrial flutter, chronic hyponatremia, lumbar spinal stenosis, fibromyalgia, recently diagnosed subclavian steal syndrome with left upper weakness and was undergoing work-up when she was found to have a left lung mass that eventually was diagnosed as invasive adenocarcinoma for which she undergone??radiation therapy (02/15 - 02/28),[facility].?? During this hospitalization??she underwent subclavian??stent placement by via right femoral access.?Patient went to??rehab and came back on the same day with pain in the right groin and was found to have right femoral artery pseudoaneurysm.?? Medicine consulted for comanagement of her medical conditions. ?? 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 Jay on??03/11/22.?Patient has tolerated procedure well??reporting some pain at the right femoral site.?? Patient still has the??JARVIS drain inplace. ??Management per primary??surgical team. ?? Paroxysmal atrial flutter (I48.92):??Patient acutely atrial fibrillation currently remaining in sinus rhythm.??Her apixaban was held at the time of admission due to hematoma.??It might be reasonable tocontinue to hold??during the acute illness??and revisit that at a later date. Certainly we want vascular surgery??input also??on the??best timing to restart anticoagulation. ??Vascular team planning onresuming??apixaban at the time of discharge ?? Subclavian artery stenosis, left (I77.1):??Patient is status post stenting??by Dr. Epstein??with good angiographic results. No change in the management. ?? Depression, major, recurrent, in partial remission (F33.41):??Patient is on mirtazapine 7.5 mg p.o. at bedtime which will be continued in the hospital. ?? Displacement of lumbar intervertebral disc without myelopathy (M51.26):??Patient receives??regular??epidural as well as SI joint injection from her pain specialist.?Has significant back pain yesterday but seems to be better today.?? Will encourage ambulation. ?? Generalized anxiety disorder (F41.1):??She takes??mirtazapine which will be continued. ?? Hypertension (I10):??Patient does not take any antihypertensive medications and her blood pressure is currently well controlled.??We will continue to monitor. ?? Hyperlipidemia (E78.5):??Patient was resumed on her home dose of atorvastatin. ?? VTE Prophylaxis:??Patient is on subcutaneous heparin. ? CTA Pelvis vessels W contrast IV BHSPowerscribe , CIS S: TRANSCRIBE Adamaris Dunlap DO: Kendall Liang MD: VERIFY Event Display: Result: Authored Date: [id number] CT Angio Pelvis INDICATION: Refer to EMR; Hx of Present Illness: Pt discharged yesterday post op for Rt groin stent insertion for thrombus. Pt has complications and was admitted to ICU. Pt states she was feeling well and up ambulating with no difficulties. Tonight at 2130 while walking back from bathroom severe pain 10; Reason: Postop; R fem pop pain, swelling, ecchymosis; Clinical Question(s): Hemorrhage Hematoma; R femoral , Hemorrhage/Hematoma COMPARISON: CT abdomen/pelvis 09/13/[address] PET 12/28/2021 TECHNIQUE: Unenhanced axial images were obtained from lower abdomen through the pelvis before, during (arterial) and after (portal venous) the intravenous administration of iodinated contrast. 100 cc of Omnipaque 300 was administered intravenously. Sagittal and coronal maximum intensity projection (MIP) images were reconstructed and rendered in both arterial and venous phases. Weight-based protocol using automatic tube modulation was used to optimize exposure parameters. RADIATION DOSE PARAMETERS: CTDIvol Body: 11.93 mGy, DLP Body: 1506 mGy*cm. FINDINGS: The partially visualized distal abdominal aorta has marked atherosclerotic calcification. Moderate to marked atherosclerotic calcification of the bilateral common iliac arteries and bilateral internal iliac arteries causing at least 50% stenosis of these vessels. A tiny focal dissection of the distal right external iliac artery/proximal right common femoral artery cannot be excluded (series 602 image 279). Active contrast extravasation can be seen surrounding this region and communicating with a large developing soft tissue hematoma that extends anteriorly along the lower right pelvic wall into the right lower pelvis subcutaneous soft tissues measuring approximately 8.7 x 4.8 x 10 cm (series 702 image 330 and series 704 images 42-49). A second region of softtissue hematoma appearing more infiltrative and without contrast opacification is seen extending inferiorly into the right pubic mons and right labial soft tissues measuring approximately 8.4 x 5.6 x 9.4 cm causing a leftward displacement of the right labial soft tissues (series 702 image 480 and series 704 image 58). Diffuse soft tissue edema surrounds these large soft tissue hematomas and extends along the anterolateral right lower pelvic subcutaneous soft tissues. OTHER FINDINGS: Visualized GI tract: No acute findings. Lymph nodes: None enlarged. Peritoneum, omentum and mesentery: No pneumoperitoneum. Reproductive organs: Similar appearance of a known fibroid uterus. Bones: No focal abnormalities IMPRESSION: Active extravasation of contrast at the junction of the right external iliac artery and proximal right common femoral artery with a tiny focal vessel dissection at this site not excluded. Two large soft tissue hematomas in the right groin. The more superior soft tissue hematoma measures 8.7 x 4.8 x 10 cm along the right lower pelvic wall and the more inferior soft tissue hematoma measures 8.4 x 5.6 x 9.4 cm along the right mons pubis and right labial soft tissues. Diffuse swelling of the right labia causes a leftward shift of the right mons pubis and labia. Moderate to marked atherosclerotic calcification of the bilateral common iliac arteries and bilateral internal iliac arteries causing at least 50% stenosis of these vessels. Once acute findings have resolved, consider follow-up nonemergent outpatient Doppler bilateral lower extremity arterial ultrasound as clinically indicated. Dr. Adamaris Dunlap reported the above findings via phone to ordering provider GOVERNMENT SERVICES PROFESSIONAL An Sheets on 03/11/2022 at 3:18 AM. I have personally reviewed the images and I agree with this report. WSN: [id number] Ordering Physician: An Sheets Dictated By: Adamaris Dunlap DO Dictated Date/Time: 03/11/22 7:08 am Reviewed By: Kendall Oliveira MD Signed By: Kendall Oliveira MD Signed Date/Time: 03/11/22 7:13 am Transcribed By: SHAHNAZ Transcribed Date/Time: 03/11/22 3:46 am Patient Care team information Care Team PersonnelName: Kelsie Oliver Position: [facility] PCO Associate Professional Member Role: PCP Address: Address: [address] [place] [id number] Name: Manas Landaverde RN Position: [facility] RN Member Role: Primary Care Nurse Name: Aide Reid RN Position: [facility] RN Member Role: Primary Care Nurse Name: Kyra Byrne RN Position: [facility] RN Member Role: Primary Care Nurse Name: Ryan Blackmon DO Position: [facility] Physician -Physician Practices Member Role: Lifetime Consulting Physician Address: Address: [address] [place] [id number] Name: Kraen Stearns RN Position: [facility] RN Member Role: Primary Care Nurse Name: Vandana Hu RN Position: [facility] RN Member Role: Primary Care Nurse Name: Karen Padilla RN Position: [facility] RN Member Role: Primary Care Nurse Name: Ani LEONARD Attending Position: [facility] ED Medicine MD Name: Kay Suazo Position: [facility] ED OA Charge Member Role: ED Associate Name: Elidia Parish RN Position: [facility] ED RN W/OE and Tasks Member Role: Patient Care Provider Name: Idania Mendoza Position: [facility] ED TA [facility] Member Role: Turbine Measurements Engineer Care Team Related PersonsName: GARY ROSSI Name: DAISHA MORLEY Address: home [address] [place] [address]
--- OUTSIDE RECORDS SUMMARY | 2022-04-27 19:44 | XMS_ITS | Continuity of Care Document ---
:1955 Author Organization [facility] Address [address] [place] [address]- Care Team Providers Name Role Phone Kelsie Oliver Primary Care Physician Encounter [facility] [place] Date(s): 04/01/20 - 05/01/20 [facility] [address] [place] [address]- Allergies, Adverse Reactions, Alerts Substance Reaction Severity [...] 04/09/20 9:33:00 EST, Route to Pharmacy Electronically, [facility], 160.2, cm, 03/24/20 12:29:00 EST, Height Start Date: 04/09/20 Stop Date: 07/08/20 Status: OrderedAspirin 81, mg, By Mouth, Daily, 0, 0, 04/12/06 11:40:18, Print RADHA Number, [id number], Constant Indicator Start Date: 04/12/06 Status: OrderedColace [...] 1 Refills, Maintenance, 04/09/20 9:33:00 EST, Tablet, [facility], 160.2, cm, 03/24/20 12:29:00 EST, Height Start Date: 04/09/20 Stop Date: 10/06/20 Status: Orderedlisinopril 40 mg oral tablet 1 tablet = 40 mg, By Mouth, Daily, # 90 tablet, 0 Refills, Maintenance, 04/01/20 13:38:00 EST, Tablet, [facility], 160.2, cm, 03/24/20 12:29:00 [...] tablet, 0 Refills, Maintenance, 04/20/20 11:07:00 EST, [facility], Partial fill upon patient request. [...] 03/10/20 8:59:00 EST, Route to Pharmacy Electronically, [facility], 160.2, cm, 02/18/20 10... Start [...] Active Vitamin D deficiency(Confirmed) Active 1neg stress [id number] back pain DOI 04/08/[id number] Oswestry Disability Index: 62% ( crippled ) on 06/30/18; initial [place] Back Pain Scale: 81 on goal < 130 smoker, VRw0mvosjzc point injections-neuro Dr HollowayYljfzw4tnsf management per Dr Alexis winfred- vuxtg5WQLB QMSIE2WF joint dysfunction status post uhanewcvw4HME 05/24 degenerative changes, L5 S1 facet joint inflam-ug99Jsvs score 0.6 hip, 5.7 [id number]-W: 15 on 2ACE score: 6 on 11/11/18 Social History Social History Type Response Smoking Status 10 or more cigarettes (1/2 p ack or more)/day in last 30 days; Type: Cigarettes; Other: 1ppd-1/2ppd; Started at age: 24; entered on: 09/22/18 Sex
--- OUTSIDE RECORDS SUMMARY | 2022-04-27 19:44 | XMS_ITS | Continuity of Care Document ---
:1955 Author Organization [facility] Address [address] [place] [address]- Care Team Providers Name Role Phone Kelsie Oliver Primary Care Physician Encounter [facility] [place](s): 04/03/22 - 04/10/22 [facility] [address], [place] [address] Attending Physician: Kelsie Oliver Admitting Physician: Kelsie Oliver Referring Physician: Haider Tomlinson MD Allergies, Adverse Reactions, Alerts Substance Reaction Severity Status doxycycline rash Active tetracycline red blotches Persistent Moderate Active penicillin rash Active sulfa drugs Active Flexeril rash Active nonsteroidal anti-inflammatory agents [D]Wheezing Active Adhesive Bandage Active Cymbalta Active Immunizations Given and Recorded Vaccine Date Status Refusal Reason influenza virus vaccine, inactivated 03/06/22 Given influenza virus vaccine, inactivated 02/15/22 Recorded [id number] bivalent booster vax 12/13/21 Recorde d SARS-CoV-2 [...] 14:26:00 EST, ; Start Date: 03/11/22 Status: OrderedEliquis 5 mg oral tablet 1 tablet = 5 mg, By Mouth, 2 times a day, 5 Refills, Maintenance, 03/05/22 23:57:00 EST, Tablet, ; Start Date: 03/05/22 Status: Orderedgabapentin 100 mg oral capsule 100 mg, 1, capsule, By Mouth, 3 times a day, Refills 0, Maintenance, 03/05/22 17:15:00 EST, ; Start Date: 03/05/22 Status: Orderedgabapentin 100 mg oral capsule 100 mg, 1, capsule, By Mouth, 3 times a day, Patient to get refills from the primary care physician,# 90 capsule, Refills 0, Tot. Refills 0, Maintenance, 04/03/22 13:41:00 EST, Route to Pharmacy Electronically, [facility], Partial fill upon p... Start Date: 04/03/22 Status: OrderedLORazepam 0.5 mg oral tablet 1 tablet = 0.5 mg, By Mouth, 2 times a day, PRN as needed for anxiety, 0 Refills, Maintenance, 09/13/21 5:05:00 EDT, Tablet, ; Start Date: 09/13/21 Status: OrderedMiraLax Powder 1 pack/packet = 17 Gm, By Mouth, Daily, 0 Refills, Maintenance, 09/15/21 15:50:00 EDT, Powder, ; Start Date: 09/15/21 Status: OrderedoxyCODONE 5 mg oral tablet 5 mg, 1, tablet, By Mouth, Every 12 hours, PRN, may take 2.5mg No driving [place] reviewed, # 7 tablet, Refills 0, Tot. Refills 0, Maintenance, as needed for pain, 04/03/22 13:43:00 EST, Route to Pharmacy Electronically, [facility], Par... Start Date: 04/03/22 Status: OrderedSenna 8.6 mg oral tablet 8.6 mg, 1, [...] Confirmed Active Paroxysmal atrial Confirmed Active flutter Antiplatelet or Confirmed Active antithrombotic long-term use Primary Confirmed 01/19/22 Active adenocarcinoma of upper lobe of left lung ([id number]) MDD (major depressive Confirmed Active disorder), recurrent episode, moderate Subclavian artery Confirmed Active stenosis, left Tubular adenoma of Confirmed Active colon Vertebral artery Confirmed Active occlusion 1neg stress [id number] Oswestry Disability Index: 58% (26/45; severe disability ); updated [place] Back Pain Disability Scale score: 71 both on 07/20/20 3initial Oswestry Disability Index: 62% ( crippled ) on 06/30/18; initial [place] Back Pain Scale: 81 on goal < 130 smoker, MMu5Tfns score 0.6 hip, 5.7 other Vital Signs Most recent to oldest [Reference Range]: 1 Height 159 cm (04/03/22 12:57 PM) Weight 73.3 kg (04/03/22 12:57 PM) Oxygen Saturation [94-100 %] 97 % (04/03/22 12:57 PM) Pulse Rate [55-90 bpm] 72 bpm (04/03/22 12:57 PM) Body Mass Index [18.5-24.99 kg/m2] 28.99 kg/m2 *H* (04/03/22 12:57 PM) Blood Pressure [90-138/55-84 mm Hg] 150/70 mm Hg *H* (04/03/22 12:57 PM) Mode of Delivery (Oxygen) Room air (04/03/22 12:57 PM) Blood pressure sites Arm, right (04/03/22 12:57 PM) Weight Obtained Via Patient/family stated (04/03/22 12:57 PM) Social History Social History Type Response Smoking Status Use: 4 or less cigarettes(le ss than 1/4 pack)/day in last 30 days; Former smoker, quit more than 30 days ago; Other: QUIT 2 WEEKS AGO (01/17/2022); PRIOR TO THAT WAS ONLY 2-3 CIG/D X AGE 22; entered on: 01/31/22 Sex Note Mina Martinez: PERFORM, SIGN, VERIFY Event Display: Patient Education/Instruction Authored Date: [id number] [facility] *[facility] [address] Clinical Summary Name LY ROSSI Age 67 Years 1955 PCP Jagjit WEAVER, Kelsie Parks PCP Visit Date 04/03/2022 12:49:00 Additional Instructions: Scheduled Appointments?? Future Appointments ?*[facility] ?[address]??[place],??[place],??[address] ?Phone:??--?Fax:??-- ?Appt. Date:??04/16/2022?12:45 PM ?Scheduled Provider:??Sean BLANCHARD, Marah Andrade Follow-Up Instructions ?? Diagnosis Medications: Please continue your medications until treatment is completed or stopped by your provider. Discuss any questions related to medications with your provider. Medications to Continue with No Changes These medications were not printed or sent to your pharmacy Acetaminophen (acetaminophen 325 mg oral tablet) 2 tab(s) Oral 3 times a day as needed pain/fever. Next Dose: apixaban (Eliquis 5 mg oral tablet) 1 tab(s) Oral twice a day. Next Dose: Atorvastatin (atorvastatin 10 mg oral tablet) 1 tab(s) Oral Daily at Bedtime. Next Dose: Gabapentin (gabapentin 100 mg oral capsule) 1 capsule Oral 3 times a day. Next Dose: Hydroxypropyl Methylcellulose Ophthalmic (Artificial Tears 0.5% Ophth) prn for dryness. Next Dose: Lorazepam (LORazepam 0.5 mg oral tablet) 1 tab(s) Oral twice a day as needed as needed for anxiety. Next Dose: Oxycodone (oxyCODONE 5 mg oral tablet) 2 tab(s) Oral every 6 hours as needed Pain , Moderate. Next Dose: Polyethylene Glycol 3350 (MiraLax Powder) 17 gram Oral Daily. Next Dose: Senna (Senna 8.6 mg oral tablet) 1 tab(s) Oral Daily at Bedtime. Next Dose: Allergy Info:?? Cymbalta; Adhesive Bandage; nonsteroidal anti-inflammatory agents; Flexeril; sulfa drugs; penicillin; tetracycline; doxycycline Medications Given This Visit Future Orders ?No future orders Vital Signs Height 159 cm Weight 73.3 kg BMI 28.99 kg/m2 Blood Pressure 150 mm Hg/70 mm Hg Temperature Pulse Rate 72 bpm Respiratory Rate 02 Sat Mode of Delivery 97 %/Room air You can now view a summary of your hospital visit from the comfort of your home through a free online portal called [employer]. [employer] is a website that allows you to securely view yourmedical information including discharge summary, medications and follow-up visits. ??You can also send a secure electronic message to your doctor???s office to request appointments, renew medications or just ask a question. You can enroll at [email or web address] or register during your next office visit. Disclaimer:?? The information provided is of a general nature and is intended to be used in conjunction with the recommendations and advice of your health care practitioner. ??Every effort has been made to ensure that the information provided is accurate and complete at the time it is provided to you however, as your needs change, or, as new ??information becomes available, different or additional instructions may be required. If you have questions, please consult with your primary care provider or pharmacist, as appropriate.??This information is not intended to serve as substitution for assessment and evaluation by a qualified health care provider. If you do not have a primary care provider, you may find a [facility] provider by calling [facility] [employer] Link at [phone]. For information about the plan of care including goals and instructions for your diagnosis, please see the patient education orders section of this document. Patient Education Materials?? The content of this educational material or handout may have been modified, supplemented, or adaptedfrom its original content and format to support your individualized medical care. Patient Care team information Care Team PersonnelName: Kelsie Oliver Position: [facility] PCO Associate Professional Member Role: PCP Address: Address: [address] [place] [address]- [place] Name: Manas Landaverde RN Position: S RN Member Role: Primary Care Nurse Name: Aide Reid RN Position: [facility] RN Member Role: Primary Care Nurse Name: Kyra Byrne RN Position: [facility] RN Member Role: Primary Care Nurse Name: Ryan Blackmon DO Position: [facility] Physician -Physician Practices Member Role: Lifetime Consulting Physician Address: Address: [address] [place] [id number] Name: Karen Stearns RN Position: [facility] RN Member Role: Primary Care Nurse Name: Karen Padilla RN Position: [facility] RN Member Role: Primary Care Nurse Care Team Related PersonsName: SILVER ROSSI Name: LASHAY MORLEY Address: [place] [address] [place] [address]
--- OUTSIDE RECORDS SUMMARY | 2022-04-27 19:44 | XMS_ITS | Continuity of Care Document ---
:1955 Author Organization [facility] Address [address] [place] [phone]- Care Team Providers Name Role Phone Kelsie Oliver Primary Care Physician Encounter [facility] [place] Date(s): 11/11/19 - 12/11/19 [facility] [address] [place] [address]- [facility] Allergies, Adverse Reactions, Alerts Substance Reaction Severity [...] 10/12/19 9:33:00 EDT, Route to Pharmacy Electronically, [facility], 160.2, cm, 10/02/19 13:49:00 EDT, Height Start Date: 10/12/19 Stop Date: 04/09/20 Status: OrderedAspirin 81, mg, By Mouth, Daily, 0, 0, 04/12/06 11:40:18, Print RADHA Number, [id number], Constant Indicator Start Date: 04/12/06 Status: OrderedBelbuca 150 mcg buccal film 1 each = 150 mcg, By Mouth, Every 12 hours, place film on inside of cheek and avoid food or drink until completely dissolved, # 28 film, 0 Refills, Maintenance, 12/10/19 12:27:00 EDT, [facility], 160.2, cm, 12/10/19 9:19:00 EDT, Height Start Date: 12/10/19 Status: OrderedColace Clear = 50 mg, By [...] Maintenance, 10/12/19 9:33:00 EDT, Tablet, [facility], 160.2, cm, 10/02/19 13:49:00 EDT, Height Start Date: 10/12/19 Stop Date: 04/09/20 Status: Orderedlisinopril 40 mg oral tablet 1 tablet = 40 mg, By Mouth, Daily, # 30 tablet, 5 Refills, Maintenance, 10/12/19 9:33:00 EDT, Tablet, [facility], 160.2, cm, 10/02/19 13:49:00 [...] Replace Required Details, Route to Pharmacy Electronically, [facility], 160.5, cm, 07/07/19 9... Start Date: 07/07/19 Status: OrderedMOM Liquid By Mouth, Daily at [...] tablet, 0 Refills, Maintenance, 12/10/19 12:27:00 EDT, [facility], Partial fill upon patient request., 160.2, cm, 12/10/19 9:19:00 EDT, Height Start Date: 12/10/19 Status: OrderedSenna By Mouth, Daily, 0 Refills, Maintenance, 11/11/18 11:53:35 EDT Start Date: 11/11/18 Status: Orderedtopiramate 100 mg oral tablet 1 tablet = 100 mg, By Mouth, Daily at bedtime, # 28 tablet, 5 Refills, Maintenance, 08/25/19 8:09:00EDT, [facility], 160.5, cm, 07/07/19 9:17:00 EDT, Height Start Date: 08/25/19 Status: OrderedValium 5 mg oral tablet 5 mg, 1, tablet, By Mouth, 3 times a day, PRN, may take 4th tablet for severe spasm, # 112 tablet, Refills 2, Tot. Refills 2, Maintenance, muscle spasm, 12/10/19 12:27:00 EDT, Route to Pharmacy Electronically, [facility], 160.2, cm, 12/10/19 9... Start Date: 12/10/19 Status: OrderedVitamin D3 By Mouth, 0 Refills, [...] Active Vitamin D deficiency(Confirmed) Active 1neg stress iohr0Rfy back pain DOI 04/08/200892503xkekxyc Oswestry Disability Index: 62% ( crippled ) on 06/30/18; initial [place] Back Pain Scale: 81 on goal < 130 smoker, WAp4beficem point injections-neuro Dr HollowayEugvuq8adqb management per Dr Alexis [place]- uebye4VGVH TFIDX0WQ joint dysfunction status post eusemvipk2AET 05/24 degenerative changes, L5 S1 facet joint inflam-os96Bjtk score 0.6 hip, 5.7 ibqjr98PQFBP-I: 15 on 2ACE score: 6 on 11/11/18 Social History Social History Type Response Smoking Status 10 or more cigarettes (1/2 p ack or more)/day in last 30 days; Type: Cigarettes; Other: 1ppd-1/2ppd; Started at age: 24; entered on: 09/22/18 Sex
--- OUTSIDE RECORDS SUMMARY | 2022-04-27 19:44 | XMS_ITS | Continuity of Care Document ---
:1955 Author Organization [facility] Address [address] [place] [address]- Care Team Providers Name Role Phone Kelsie Oliver Primary Care Physician [facility] Date(s): 07/07/19 - 08/06/19 [facility] [address] [place] [phone]- [facility] Attending Physician: Brenton Cabrera Admitting Physician: Brenton [...] 09/22/18 14:57:41 EDT, Route to Pharmacy Electronically, [id number], [facility] Start Date: 09/22/18 Stop Date: 09/17/19 Status: OrderedAspirin 81, mg, By Mouth, Daily, 0, 0, 04/12/06 11:40:18, Print RADHA Number, [id number], Constant Indicator Start Date: 04/12/06 Status: OrderedColace Clear = 50 mg, By Mouth, 2 times a day, 0 Refills, Maintenance, 04/16/16 11:25:20 Start Date: 04/16/16 Status: OrderedControlled Substance Agreement Controlled Substance Agreement, See Instructions, # 1 each, Refills 0, Tot. Refills 0, Maintenance, controlled substance agreement signed 10/16/18, pharmacy [facility], dx: mechanical low back pain, 10/16/18 [...] Refills, Maintenance, Tablet, Route to Pharmacy Electronically, [id number], [facility] Start Date: 09/22/18 Stop Date: 09/17/19 Status: Orderedlisinopril 40 mg oral tablet 1 tablet = 40 mg, By Mouth, Daily, # 30 tablet, 5 Refills, Maintenance, 05/05/19 11:40:00 EST, Tablet, [facility], 160.5, cm, 03/27/19 13:36:00 [...] Replace Required Details, Route to Pharmacy Electronically, [facility], 160.5, cm, 07/07/19 9... [...] pain., # 112 tablet, 0 Refills, Maintenance, 07/27/19 12:51:00 EDT, [facility], Partial fill upon patient request., 160.5, cm, 07/07/19 9:17:00 EDT, Height Start Date: 07/27/19 Status: OrderedSenna By Mouth, Daily, 0 Refills, Maintenance, 11/11/18 11:53:35 EDT Start Date: 11/11/18 Status: Orderedtopiramate 100 mg oral tablet 1 tablet = 100 mg, By Mouth, Daily at bedtime, # 28 tablet, 3 Refills, Maintenance, 05/14/19 15:17:00 EST, [facility], 160.5, cm, 05/06/19 11:18:00 EST, Height Start Date: 05/14/19 Status: OrderedValium 5 mg oral tablet 5 mg, 1, tablet, By Mouth, 3 times a day, PRN, may take 4th tablet for severe spasm, # 112 tablet, Refills 2, Tot. Refills 2, Maintenance, muscle spasm, 06/30/19 9:21:00 EDT, Route to Pharmacy Electronically, [facility], 160.5, cm, 05/06/19 11... Start Date: 06/30/19 Status: OrderedVitamin D3 By Mouth, 0 Refills, [...] Active Vitamin D deficiency(Confirmed) Active 1neg stress yyas7Fgs back pain DOI 04/08/200882866bqqdzke Oswestry Disability Index: 62% ( crippled ) on 06/30/18; initial [place] Back Pain Scale: 81 on goal < 130 smoker, GEd5etxwplt point injections-neuro Dr HollowayJmiecu3zlfm management per Dr Vanesa worthy gresham- fjyhw0DXWN ILMCZ5OS joint dysfunction status post udvnoyrzn1TZN 05/24 degenerative changes, L5 S1 facet joint inflam-zl79Nvoo score 0.6 hip, 5.7 obexr31DONOQ-I: 15 on 2ACE score: 6 on 11/11/18 Social History Social History Type Response Smoking Status 10 or more cigarettes (1/2 p ack or more)/day in last 30 days; Type: Cigarettes; Other: 1ppd-1/2ppd; Started at age: 24; entered on: 09/22/18 Sex
--- OUTSIDE RECORDS SUMMARY | 2022-04-27 19:44 | XMS_ITS | Continuity of Care Document ---
:1955 Author Organization [facility] Address [address] [place] [address], [address] [place] [address]- Care Team Providers Name Role Phone Kelsie Oliver Primary Care Physician Encounter [facility] Date(s): 01/31/22 - 03/02/22 [facility] [address] [place] [address], [address] [place], [place] [address] Attending Physician: Brenton Cabrera Admitting Physician: Brenton Cabrera Referring Physician: Admtr, Brenton Allergies, Adverse Reactions, Alerts Substance Reaction Severity [...] 1Admin Note: [facility] Medications Acetaminophen 0 Refills, Maintenance, 01/31/22 14:33:00 EST, Partial fill upon patient request if the prescriptionis for a schedule II opioid drug. Start Date: 01/31/22 Status: Orderedapixaban 5 mg oral tablet 1 tablet = 5 mg, By Mouth, 2 times a day, # 60 tablet, 5 Refills, Maintenance, 02/20/22 15:57:00 EST, Tablet, [facility], 163, cm, 01/31/22 14:28:00 EST, Height, 72.6, kg, 01/24/22 13:07:00 EST, Dry Weight Start Date: 02/20/22 Status: Orderedatorvastatin 10 mg oral tablet See Instructions, TAKE ONE TABLET BY MOUTH ONCE DAILY, # 90 Unknown, 1 Refills, Maintenance, 02/09/22 18:57:00 EST, [facility], 163, cm, 01/31/22 14:28:00 EST, Height, 72.6, kg, 01/24/22 13:07:00 EST, Dry Weight Start Date: 02/09/22 Status: Orderedcyanocobalamin 1000 mcg oral tablet 1,000 mcg, 1, tablet, By Mouth, Daily, # 90 tablet, Refills 1, Tot. Refills 1, Maintenance, 09/18/2215:40:00 EDT, Route to Pharmacy Electronically, [facility], 160, cm, 09/15/21 4:30:00 EDT, Height, 74, kg, 09/13/21 20:36:00 EDT, Dry Weight Start Date: 09/17/21 Status: Ordereddiltiazem 180 mg/24 hours oral capsule, extended release 180 mg, 1, capsule, By Mouth, Daily, # 30 capsule, Refills 5, Tot. Refills 5, Maintenance, 02/20/22 15:57:00 EST, Route to Pharmacy Electronically, [facility], 163, cm, 01/31/22 14:28:00 EST, Height, 72.6, kg, 01/24/22 13:07:00 EST, Dry Weight Start Date: 02/20/22 Status: OrderedFlector Patch 1.3% topical film, extended [...] 1 Refills, Maintenance, 09/17/21 16:40:00 EDT, Patch, [facility], 24 hr Topically Daily, 160, cm, 09/15/21 4:30:00 EDT, Height, 74, kg, 09/13/21 20:36:00 EDT, Dry Weight Start Date: 09/17/21 Status: OrderedSenna 8.8 mg/5 mL oral syrup 10 mL, By Mouth, Daily at bedtime, # 900 mL, 3 Refills, Maintenance, 01/18/22 13:14:00 EDT, [facility], 10 mL By Mouth Daily [...] adenocarcinoma of upper lobe of left lung ([id number]) Subclavian artery Confirmed Active stenosis, left Tubular adenoma of Confirmed Active colon 1neg stress gvom1Zcizcwr Oswestry Disability Index: 58% (26/45; severe disability ); updated [place] Back Pain Disability Scale score: 71 both on 07/20/20 3initial Oswestry Disability Index: 62% ( crippled ) on 06/30/18; initial [place] Back Pain Scale: 81 on goal < 130 smoker, DRb6Peze score 0.6 hip, 5.7 other Social History [...] information Care Team PersonnelName: Kelsie Oliver Position: [facility] PCO Associate Professional Member Role: PCP Address: Address: [address] [place] [phone]- Name: Ryan Blackmon DO Position: [facility] Physician -Physician Practices Member Role: [employer] Address: Address: [address] [place] [phone]- [place] Name: Karen Stearns RN Position: [facility] RN Member Role: Primary Care Nurse Name: Vandana Hu RN Position: [facility] RN Member Role: Primary Care Nurse Care Team Related PersonsName: SILVER ROSSI Name: LASHAY MORLEY Address: [address] [address]
--- OUTSIDE RECORDS SUMMARY | 2022-04-27 19:45 | XMS_ITS | Continuity of Care Document ---
:1955 Author Organization [facility] Address [address] [place] [address]- Care Team Providers Name Role Phone Kelsie Oliver Primary Care Physician Encounter [facility] Date(s): 11/22/20 - 12/22/20 [facility] [address] [place] [id number] Allergies, Adverse Reactions, Alerts Substance Reaction [...] 07/12/20 11:52:00 EDT, Route to Pharmacy Electronically, [facility] 160.2, cm, 06/30/20 13:45:00 EDT, Height Start Date: 07/12/20 Stop Date: 01/08/21 Status: OrderedAspirin 81, mg, By Mouth, Daily, 0, 0, 04/12/06 11:40:18, Print RADHA Number, [id number], Constant Indicator Start Date: 04/12/06 Status: Orderedatorvastatin 10 mg oral tablet See Instructions, TAKE ONE TABLET BY MOUTH ONCE DAILY, # 90 tablet, 0 Refills, [facility], 160, cm, 10/31/20 9:48:00 EDT, Height, 66, kg, 08/10/20 13:30:00 EDT, Dry Weight Start Date: 11/04/20 Status: OrderedControlled Substance Agreement Controlled Substance Agreement, See Instructions, # 1 each, Refills 0, Tot. Refills 0, Maintenance, controlled substance agreement signed 10/16/18 Updated: 07/20/2020 pharmacy [facility] dx: mechanical low back [...] Refills, Maintenance, 06/29/20 8:06:00 EDT, [facility], 160.2, cm, 05/30/20 11:21:00 [...] Maintenance, 07/12/20 11:52:00 EDT, Tablet, [facility], 160.2, cm, 06/30/20 13:45:00 [...] 12/10/19 9:14:00 EDT Start Date: 12/10/19 Status: OrderedoxyCODONE 10 mg oral tablet 0.5 to 1 tablet, By Mouth, Every 6 hours, PRN pain r/t work injury, # 35 tablet, 0 Refills, Maintenance, 09/14/20 17:19:00 EDT, [facility], 160, cm, 08/30/20 11:02:00 [...] Active Vitamin D deficiency(Confirmed) Active 1neg stress jazv4Pmk back pain DOI 04/08/200872404Dwkugpp Oswestry Disability Index: 58% (26/45; severe disability ); updated [place] Back Pain Disability Scale score: 71 both on initial Oswestry Disability Index: 62% ( crippled ) on 06/30/18; initial [place] Back Pain Scale: 81 on goal < 130 smoker, FHx6 trigger point injections-neuro Dr HollowayKxqlph0xtbg management per Dr Alexis [place]- ivsqu5VWZX EZBNE3UN joint dysfunction status post tylxwjruj55JZP 05/24 degenerative changes, L5 S1 facet joint inflam-zc41Lyjv score 0.6 hip, 5.7 fobbx64TKRGC-X: 15 on 3ACE score: 6 on 11/11/18 Social History Social History Type Response Smoking Status Cigars or pipes but not tad y within last 30 days entered on: 07/29/20 Sex Female
--- OUTSIDE RECORDS SUMMARY | 2022-04-27 19:45 | XMS_ITS | Continuity of Care Document ---
:1955 Author Organization [facility] Address [address] [place] [address]- Care Team Providers Name Role Phone Kelsie Oliver Primary Care Physician Encounter [facility] Date(s): 01/18/22 - 02/17/22 [facility] [address] [place] [phone]- [place] Allergies, Adverse Reactions, Alerts Substance Reaction Severity Status doxycycline rash Active tetracycline red blotches Persistent Moderate Active Cymbalta Active nonsteroidal anti-inflammatory agents [D]Wheezing Active penicillin rash Active sulfa drugs Active Flexeril rash Active Immunizations Given and Recorded Vaccine Date Status Refusal Reason SARS-CoV-2 (COVID-19) mRNA-1273 vaccine 03/06/21 Recorded SARS-CoV-2 (COVID-19) mRNA-1273 vaccine 06/12/20 Recorded SARS-CoV-2 (COVID-19) mRNA-1273 vaccine 05/15/20 Recorded tetanus/diphtheria/pertussis, acel(Tdap) 06/02/15 Given tetanus-diphtheria toxoids (Td)1 05/16/05 Given 1Admin Note: [facility] Medications Acetaminophen 0 Refills, Maintenance, 01/31/22 14:33:00 [...] 1 Refills, Maintenance, 02/09/22 18:57:00 EST, [facility], 163, cm, 01/31/22 14:28:00 [...] mL, 3 Refills, Maintenance, 01/18/22 13:14:00 EDT, [facility], 10 mL By Mouth [...] adenocarcinoma of upper lobe of left lung ([id number]) Subclavian artery Confirmed Active stenosis, left Tubular adenoma of Confirmed Active colon 1neg stress dwuy3Xwiwdga Oswestry Disability Index: 58% (26/45; severe disability ); updated [place] Back Pain Disability Scale score: 71 both on 07/20/20 3initial Oswestry Disability Index: 62% ( crippled ) on 06/30/18; initial [place] Back Pain Scale: 81 on goal < 130 smoker, XTs3Xrdr score 0.6 hip, 5.7 other Social History [...] information Care Team PersonnelName: Kelsie Oliver Position: [facility] PCO Associate Professional Member Role: PCP Address: Address: [address] [place] [id number]- Name: Ryan Blackmon DO Position: [facility] Physician -Physician Practices Member Role: [employer] Physician Address: Address: [address] [place] [address] [address] [place] [address]- Name: Karen Stearns RN Position: [facility] RN Member Role: Primary Care Nurse Name: Vandana Hu RN Position: [facility] RN Member Role: Primary Care Nurse Care Team Related PersonsName: SILVER ROSSI Name: LASHAY MORLEY Address: [address] [address]
--- OUTSIDE RECORDS SUMMARY | 2022-04-27 19:45 | XMS_ITS | Continuity of Care Document ---
:1955 Author Organization [facility] Address [address] [place] [address]- Care Team Providers Name Role Phone Kelsie Oliver Primary Care Physician Encounter [facility] [place] [place] Date(s): 11/23/20 - 12/23/20 [facility] [address] [place] [id number] Attending Physician: Brenton Cabrera Admitting Physician: Brenton Cabrera Referring Physician: Brenton Cabrera Allergies, Adverse Reactions, Alerts Substance Reaction Severity [...] 07/12/20 11:52:00 EDT, Route to Pharmacy Electronically, [facility], 160.2, cm, 06/30/20 13:45:00 EDT, Height Start Date: 07/12/20 Stop Date: 01/08/21 Status: OrderedAspirin 81, mg, By Mouth, Daily, 0, 0, 04/12/06 11:40:18, Print RADHA Number, [id number], Constant Indicator Start Date: 04/12/06 Status: Orderedatorvastatin 10 mg oral tablet See Instructions, TAKE ONE TABLET BY MOUTH ONCE DAILY, # 90 tablet, 0 Refills, [facility], 160, cm, 10/31/20 9:48:00 EDT, Height, 66, kg, 08/10/20 13:30:00 EDT, Dry Weight Start Date: 11/04/20 Status: OrderedControlled Substance Agreement Controlled Substance Agreement, See Instructions, # 1 each, Refills 0, Tot. Refills 0, Maintenance, controlled substance agreement signed 10/16/18 Updated: 07/20/2020 pharmacy [facility] Chow dx: mechanical low back pain M54.5, [...] 1 Refills, Maintenance, 07/12/20 11:52:00 EDT, Tablet, [facility], 160.2, cm, 06/30/20 13:45:00 [...] Active Vitamin D deficiency(Confirmed) Active 1neg stress cyjc5Ejw back pain DOI 04/08/200835493Ysqpnok Oswestry Disability Index: 58% (26/45; severe disability ); updated [place] Back Pain Disability Scale score: 71 both on initial Oswestry Disability Index: 62% ( crippled ) on 06/30/18; initial [place] Back Pain Scale: 81 on goal < 130 smoker, FHx6 trigger point injections-neuro Dr HollowayQitvrm8qrzi management per Dr Alexis [place]- aimoc8OLZM KFEQA2ME joint dysfunction status post kfbcpwfzy33EYK 05/24 degenerative changes, L5 S1 facet joint inflam-vg80Zqyh score 0.6 hip, 5.7 kkudk85BLBYO-E: 15 on 3ACE score: 6 on 11/11/18 Social History Social History Type Response Smoking Status Cigars or pipes but not tad y within last 30 days entered on: 07/29/20 Sex Female
--- OUTSIDE RECORDS SUMMARY | 2022-04-27 19:45 | XMS_ITS | Continuity of Care Document ---
:1955 Author Organization [facility] Address [address] [place] [address]- Care Team Providers Name Role Phone Kelsie Oliver Primary Care Physician Encounter [facility] Date(s): 03/22/22 - 03/29/22 [facility] [address] [place] [address]- Encounter Diagnosis Primary adenocarcinoma of upper lobe of left lung ([id number]) (Discharge Diagnosis) - 03/21/22 Hypertension (Discharge Diagnosis) - 03/21/22 Paroxysmal atrial flutter (Discharge Diagnosis) - 03/21/22 Subclavian artery stenosis, left (Discharge Diagnosis) - 03/21/22 Vertebral artery occlusion (Discharge Diagnosis) - 03/21/22 Antiplatelet or antithrombotic long-term use (Discharge Diagnosis) - 03/21/22 MDD (major depressive disorder), recurrent episode, moderate (Discharge Diagnosis) - 03/21/22 Generalized anxiety disorder (Discharge Diagnosis) - 03/21/22 Tubular adenoma of colon (Discharge Diagnosis) - 03/21/22 Attending Physician: Not on Staff, Attending MD Allergies, Adverse Reactions, Alerts Substance Reaction Severity Status doxycycline rash Active tetracycline red blotches Persistent Moderate Active sulfa drugs Active Flexeril rash Active nonsteroidal anti-inflammatory agents [D]Wheezing Active Adhesive Bandage Active Cymbalta Active penicillin rash Active Immunizations Given and Recorded Vaccine Date Status Refusal Reason influenza virus vaccine, inactivated 03/06/22 Given influenza virus vaccine, inactivated 02/15/22 Recorded [id number] bivalent booster vax 12/13/21 Recorde d SARS-CoV-2 (COVID-19) mRNA-1273 vaccine 03/06/21 Recorded SARS-CoV-2 (COVID-19) mRNA-1273 vaccine 06/12/20 Recorded SARS-CoV-2 (COVID-19) mRNA-7401 vaccine 05/15/20 Recorded tetanus/diphtheria/pertussis, acel(Tdap) 06/02/15 Given [...] 17:15:00 EST, ; Start Date: 03/05/22 Status: OrderedLORazepam 0.5 [...] 09/15/21 Status: OrderedoxyCODONE 5 mg oral tablet 10 mg, 2, tablet, By Mouth, Every 6 hours, PRN, Refills 0, Tot. Refills 0, Maintenance, Pain , Moderate, 03/10/22 11:18:00 EST, ; Start Date: 03/10/22 Status: OrderedSenna 8.6 mg oral tablet 8.6 [...] adenocarcinoma of upper lobe of left lung (pZ6pY7M1) MDD (major depressive Confirmed Active disorder), recurrent episode, moderate Subclavian artery Confirmed Active stenosis, left Tubular adenoma of Confirmed Active colon Vertebral artery Confirmed Active occlusion 1neg stress [id number] Oswestry Disability Index: 58% (26/45; severe disability ); updated [place] Back Pain Disability Scale score: 71 both on 07/20/20 3initial Oswestry Disability Index: 62% ( crippled ) on 06/30/18; initial [place] Back Pain Scale: 81 on goal < 130 smoker, KMo6Dcng score 0.6 hip, 5.7 other Diagnosis Diagnosis Type Effective Dates Health Clinical [facility] Status Service Primary Discharge 03/21/22 adenocarcinoma of Diagnosis upper lobe of left lung ([id number]) Hypertension Discharge 03/21/22 Diagnosis Paroxysmal atrial Discharge 03/21/22 flutter Diagnosis Subclavian artery Discharge 03/21/22 stenosis, left Diagnosis Vertebral artery Discharge 03/21/22 occlusion Diagnosis Antiplatelet or Discharge 03/21/22 antithrombotic Diagnosis long-term use MDD (major Discharge 03/21/22 depressive Diagnosis disorder), recurrent episode, moderate Generalized anxiety Discharge 03/21/22 disorder Diagnosis Tubular adenoma of Discharge 03/21/22 colon Diagnosis Vital Signs Most recent to oldest [Reference Range]: 1 Height 159 cm (03/22/22 4:01 PM) Weight 73.3 kg (03/22/22 4:01 PM) Oxygen Saturation [94-100 %] 98 % (03/22/22 4:01 PM) Pulse Rate [55-90 bpm] 88 bpm (03/22/22 4:01 PM) Body Mass Index [18.5-24.99 kg/m2] 28.99 kg/m2 *H* (03/22/22 4:01 PM) Blood Pressure [90-138/55-84 mm Hg] 129/72 mm Hg (03/22/22 4:01 PM) Blood pressure sites Arm, left (03/22/22 4:01 PM) Weight Obtained Via Standing scale (03/22/22 4:01 PM) Social History Social History Type Response Smoking Status Use: 4 or less cigarettes(le ss than 1/4 pack)/day in last 30 days; Former smoker, quit more than 30 days ago; Other: QUIT 2 WEEKS AGO (01/17/2022); PRIOR TO THAT WAS ONLY 2-3 CIG/D X AGE 22; entered on: 01/31/22 Sex Note Oma Ruby MA: PERFORM, SIGN, VERIFY Event Display: Patient Education/Instruction Authored Date: [id number] [facility] *Formerly [facility] Clinical Summary Name LY ROSSI Age 67 Years 1955 PCP Jagjit WEAVER, Kelsie Parks PCP [facility]# [id number] Visit Date 03/22/2022 15:39:00 Patient Instructions Take Tyleonol 500mg 2tab three times a day Take Oxycodone 5mg 1-2 tabs as needed for pain Apply ice packs to groin Continue home care Follow up with Dr Tomlinson and Dr Blount Additional Instructions: Scheduled Appointments?? Future Appointments ?*[facility],??[place],??[address] ?Phone:??--?Fax:??-- ?Appt. Date:??04/03/2022?1:00 PM ?Scheduled Provider:??Colin BLANCHARD , Lulú Hopkins ?*[place] [address]??[place],??[address] ?Phone:??--?Fax:??-- ?Appt. Date:??04/16/2022?12:45 PM ?Scheduled Provider:??Sean BLANCHARD, Marah Andrade Follow-Up Instructions ?? Diagnosis Major depressive disorder, recurrent, moderate; Benign neoplasm of colon, unspecified; Malignant neoplasm of upper lobe, left bronchus or lung; Occlusion and stenosis of unspecified vertebral artery; Essential (primary) hypertension; Unspecified atrial flutter; Stricture of artery; Generalized anxietydisorder; prison (current) use of antithrombotics/antiplatelets Medications: Please continue your medications until treatment is completed or stopped by your provider. Discuss any questions related to medications with your provider. Medications to Continue Taking That Have Changed [facility], [address], [place] [id number], [phone] - Oxycodone (oxyCODONE 5 mg oral tablet) 1 - 2 tabs By Mouth Every 6 hours as needed for pain; as needed as needed for pain. Refills: 0. Next Dose: These medications were not printed or sent to your pharmacy - Oxycodone (oxyCODONE 5 mg oral tablet) 2 tab(s) Oral every 6 hours as needed Pain , Moderate. Next Dose: Medications to Continue with No Changes These medications were not printed or sent to your pharmacy Acetaminophen (acetaminophen 325 mg oral tablet) 2 tab(s) Oral 3 times a day as needed pain/fever. Next Dose: apixaban (Eliquis 5 mg oral tablet) 1 tab(s) Oral twice a day. Next Dose: Atorvastatin (atorvastatin 10 mg oral tablet) 1 tab(s) Oral Daily at Bedtime. Next Dose: Bisacodyl (bisacodyl 10 mg rectal suppository) 1 suppository(ies) Per rectum Daily as needed for constipation. Next Dose: Gabapentin (gabapentin 100 mg oral capsule) 1 capsule Oral 3 times a day. Next Dose: Hydroxypropyl Methylcellulose Ophthalmic (Artificial Tears 0.5% Ophth) prn for dryness. Next Dose: Lidocaine Topical (lidocaine 5% topical film) 1 patch Topically Daily. Next Dose: Lorazepam (LORazepam 0.5 mg oral tablet) 1 tab(s) Oral twice a day as needed as needed for anxiety. Next Dose: Milk of Magnesia (MOM Liquid) 30 Milliliter Oral Daily at Bedtime as needed as needed for constipation. Next Dose: Mirtazapine (mirtazapine 7.5 mg oral tablet) 1 tab(s) Oral Daily at Bedtime. Next Dose: Polyethylene Glycol 3350 (MiraLax Powder) 17 gram Oral Daily. Next Dose: Senna (Senna 8.6 mg oral tablet) 1 tab(s) Oral Daily at Bedtime. Next Dose: Sodium Biphosphate-Sodium Phosphate (Fleet Enema 19 gm-7 gm rectal enema) 1 Each Per rectum once as needed for constipation. Next Dose: Allergy Info:?? Cymbalta; Adhesive Bandage; nonsteroidal anti-inflammatory agents; Flexeril; sulfa drugs; penicillin; tetracycline; doxycycline Medications Given This Visit Future Orders ?No future orders Vital Signs Height 159 cm Weight 73.3 kg BMI 28.99 kg/m2 Blood Pressure 129 mm Hg/72 mm Hg Temperature Pulse Rate 88 bpm Respiratory Rate 02 Sat Mode of Delivery 98 %/ You can now view a summary of your hospital visit from the comfort of your home through a free online portal called [employer]. [employer] is a website that allows you to securely view yourmedical information including discharge summary, medications and follow-up visits. ??You can also send a secure electronic message to your doctor???s office to request appointments, renew medications or just ask a question. You can enroll at [email or web address] or register during your next office visit. [...] primary care provider, you may find a [facility] provider by calling [facility] [employer] Link at [phone]. For information about the plan of care including goals and instructions for your diagnosis, please see the patient education orders section of this document. Patient Education Materials?? The content of this educational material or handout may have been modified, supplemented, or adaptedfrom its original content and format to support your individualized medical care. Patient Care team information Care Team PersonnelName: Kelsie Oliver Position: [facility] PCO Associate Professional Member Role: PCP Address: Address: [address] [place] [id number]- Name: Manas Landaverde RN Position: [facility] RN Member Role: Primary Care Nurse Name: Aide Reid RN Position: [facility] RN Member Role: Primary Care Nurse Name: Kyra Byrne RN Position: [facility] RN Member Role: Primary Care Nurse Name: Ryan Blackmon DO Position: [facility] Physician -Physician Practices Member Role: [employer] Consulting Physician Address: Address: [address] [place] [address]- Name: Karen Stearns RN Position: [facility] RN Member Role: Primary Care Nurse Name: Vandana Hu RN Position: [facility] RN Member Role: Primary Care Nurse Name: Karen Padilla RN Position: [facility] RN Member Role: Primary Care Nurse Care Team Related PersonsName: SILVER ROSSI Name: LASHAY MORLEY Address: [address] [address]
--- OUTSIDE RECORDS SUMMARY | 2022-04-27 19:45 | XMS_ITS | Continuity of Care Document ---
:1955 Author Organization [facility] Address [address] [place] [address]- Care Team Providers Name Role Phone Kelsie Oliver Primary Care Physician Encounter [facility] Date(s): 08/01/20 - 08/02/[address] [address]- Encounter Diagnosis Back pain (Final) - 08/02/20 Discharge Disposition: A-D/C Home Attending Physician: Sebastien Hayden MD Admitting Physician: Sebastien Hayden MD Referring Physician: Not on Staff, Referring MD Allergies, Adverse Reactions, Alerts Substance Reaction Severity Status doxycycline rash Active tetracycline red blotches Persistent Moderate Active penicillin rash Active penicillins Active nonsteroidal anti-inflammatory agents [D]Wheezing Active sulfa drugs Active Flexeril rash Active [...] 07/12/20 11:52:00 EDT, Route to Pharmacy Electronically, [facility], 160.2, cm, 06/30/20 13:45:00 EDT, Height Start Date: 07/12/20 Stop Date: 01/08/21 Status: OrderedAspirin 81, mg, By Mouth, Daily, 0, 0, 04/12/06 11:40:18, Print RADHA Number, [id number], Constant Indicator Start Date: 04/12/06 Status: OrderedControlled Substance Agreement Controlled Substance Agreement, See Instructions, # 1 each, Refills 0, Tot. Refills 0, Maintenance, controlled substance agreement signed 10/16/18 Updated: 07/20/2020 pharmacy [facility] Geraldo dx: mechanical low back pain [...] tablet, 1 Refills, Maintenance, 06/29/20 8:06:00 EDT, [facility], 160.2, cm, 05/30/20 11:21:00 EDT, Height Start Date: 06/29/20 Status: OrderedFlector Patch 1.3% topical film, extended release 1 patch, Topically, 2 times a day, PRN for pain, # 30 patch, 0 Refills, Maintenance, 04/16/16 11:24:30, Patch Start Date: 04/16/16 Status: Orderedipratropium nasal 21 mcg/inh spray 1 sprays, Nares, Both, 3 times a day, for 7 days, for excessive nasal drainage only, # 1 each, 0 Refills, Acute 08/07/20 14:26:00 EDT, 07/31/20 14:26:00 EDT, [facility], Partial fill upon patient request if the prescription is for a schedule... Start Date: 07/31/20 Stop Date: 08/07/20 Status: OrderedLipitor 10 mg oral tablet 1 tablet = 10 mg, By Mouth, Daily, # 90 tablet, 1 Refills, Maintenance, 04/09/20 9:33:00 EST, Tablet, [facility], 160.2, cm, 03/24/20 12:29:00 EST, [...] 12/10/19 9:14:00 EDT Start Date: 12/10/19 Status: OrderedToradol Inj 30 mg, Injection, Intramuscular, Once, STAT, 08/02/20 1:29:00 EDT, Stop date 08/02/20 1:29:00 EDT Start Date: 08/02/20 Stop Date: 08/02/20 Status: CompletedVitamin D3 By Mouth, 0 Refills, Maintenance, 04/29/17 [...] Active Vitamin D deficiency(Confirmed) Active 1neg stress outc3Cer back pain DOI 04/08/200835498bcvhvby Oswestry Disability Index: 62% ( crippled ) on 06/30/18; initial [place] Back Pain Scale: 81 on goal < 130 smoker, NSl1pvenmcp point injections-neuro Dr HollowayTiurnb3qfsz management per Dr Alexis [place]- [id number] joint dysfunction status post [id number] 05/24 degenerative changes, L5 S1 facet joint inflam-es47Owwr score 0.6 hip, 5.7 [id number]: 15 on 2ACE score: 6 on 11/11/18 Vital Signs Most recent to oldest 1 2 3 [Reference Range]: Height 160 cm 160 cm 160 cm (08/02/20 6:13 AM) (08/02/20 12:00 AM) (08/01/20 8: 54 PM) Weight 67.9 kg 67.9 kg 67.9 kg (08/02/20 6:13 AM) (08/02/20 12:00 AM) (08/01/20 8: 54 PM) Oxygen Saturation [94-100 %] 100 % 98 % 98 % (08/02/20 6:13 AM) (08/02/20 12:00 AM) (08/01/20 8: 54 PM) Pulse Rate [55-90 bpm] 75 bpm 72 bpm 75 bpm (08/02/20 6:13 AM) (08/02/20 12:00 AM) (08/01/20 8: 54 PM) Body Mass Index [18.5-24.99] 26.52 26.52 26. 52 *H* *H* *H* (08/02/20 6:13 AM) (08/02/20 12:00 AM) (08/01/20 8: 54 PM) Blood Pressure [90-138/55-84 151/77 mm Hg 126/58 mm Hg 146 /84 mm Hg mm Hg] *H* (08/02/20 12:00 AM) *H* (08/02/20 6:13 AM) (08/01/20 8:54 PM) Respiratory Rate [16-30 16 br/min 16 br/min 15 br/mi n br/min] (08/02/20 6:13 AM) (08/02/20 2:11 AM) *L* (08/02/20 12:00 A M) Temperature [96.8-100.4 DegF] 97.6 DegF (08/01/20 7:08 PM) Mode of Delivery (Oxygen) Room air Room air Room a ir (08/02/20 6:13 AM) (08/02/20 12:00 AM) (08/01/20 8: 54 PM) Blood pressure sites Arm, right Arm, right Arm, right (08/02/20 6:13 AM) (08/02/20 12:00 AM) (08/01/20 8: 54 PM) Temperature Route Oral (08/01/20 7:08 PM) Dry Weight 67.9 kg 67.9 kg 67.9 kg (08/02/20 6:13 AM) (08/02/20 12:00 AM) (08/01/20 8: 54 PM) Social History Social History Type Response Smoking Status Cigars or pipes but not tad y within last 30 days entered on: 07/29/20 Sex
--- OUTSIDE RECORDS SUMMARY | 2022-04-27 19:45 | XMS_ITS | Continuity of Care Document ---
:1955 Author Organization [facility] Address [address] [place] [address]- Care Team Providers Name Role Phone Kelsie Oliver Primary Care Physician Encounter [facility] Date(s): 01/17/22 - 02/16/22 [facility] [address] [place] [address]- [place] Allergies, Adverse Reactions, Alerts Substance Reaction [...] tetanus-diphtheria toxoids (Td)1 05/16/05 Given 1Admin Note: [facility] Medications Acetaminophen 0 Refills, Maintenance, [...] mL, 3 Refills, Maintenance, 01/18/22 13:14:00 EDT, [facility], 10 mL By Mouth [...] adenocarcinoma of upper lobe of left lung ([id number]) Subclavian artery Confirmed Active stenosis, left Tubular adenoma of Confirmed Active colon 1neg stress [id number] Oswestry Disability Index: 58% (26/45; severe disability ); updated [place] Back Pain Disability Scale score: 71 both on 07/20/20 3initial Oswestry Disability Index: 62% ( crippled ) on 06/30/18; initial [place] Back Pain Scale: 81 on goal < 130 smoker, ZBy7Yofa score 0.6 hip, 5.7 other Social History [...] Associate Professional Member Role: PCP Address: Address: [address] [place] [address]- Name: Ryan Blackmon DO Position: [facility] Physician -Physician Practices Member Role: [employer] Consulting Physician Address: Address: [address] [place] [address]- Name: Karen Stearns RN Position: [facility] RN Member Role: Primary Care Nurse Name: Vandana Hu RN Position: [facility] RN Member Role: Primary Care Nurse Care Team Related PersonsName: SILVER ROSSI Name: LASHAY MORLEY Address: [address] [address]
--- OUTSIDE RECORDS SUMMARY | 2022-04-27 19:45 | XMS_ITS | Continuity of Care Document ---
:1955 Author Organization [facility] Address [address] [place] [address]- Care Team Providers Name Role Phone Kelsie Oliver Primary Care Physician Encounter [facility] Date(s): 08/02/20 - 09/01/20 [facility] [address] [place], [place] [address] Allergies, Adverse Reactions, Alerts Substance Reaction [...] 07/12/20 11:52:00 EDT, Route to Pharmacy Electronically, [facility], 160.2, cm, 06/30/20 13:45:00 EDT, Height Start Date: 07/12/20 Stop Date: 01/08/21 Status: OrderedAspirin 81, mg, By Mouth, Daily, 0, 0, 04/12/06 11:40:18, Print RADHA Number, [id number], Constant Indicator Start Date: 04/12/06 Status: OrderedControlled [...] 1 Refills, Maintenance, 08/19/20 14:28:00 EDT, Capsule, [facility], Partial fill upon [...] Acute 09/05/20 11:21:00 EDT, 08/22/2110:21:00 EDT, Patch, [facility], Partial fill upon patient request if the prescription is for a schedule II opioid drug., 1 patch Topically Da... Start Date: 08/22/20 Stop Date: 09/05/20 Status: OrderedtraZODone 50 mg oral tablet 25 mg, 0.5, tablet, By Mouth, Daily at bedtime, # 15 tablet, Refills 3, Tot. Refills 3, Maintenance,08/08/20 10:06:00 EDT, Route to Pharmacy Electronically, [facility], Discontinue Cymbalta, 160, cm, 08/08/20 9:24:00 EDT, Height, 67.9, kg, 05... Start Date: 08/08/20 Stop Date: 12/06/20 Status: OrderedValium 5 mg oral tablet 5 mg, 1, tablet, By Mouth, 2 times a day, PRN, for 14 days, # 28 tablet, Refills 1, Tot. Refills 1, Acute 09/16/20 14:28:00 EDT, Pain , Severe, 08/19/20 14:28:00 EDT, Route to Pharmacy Electronically, [facility], Partial fill upon patient requ... [...] Active diffuse(Confirmed) Limitation due to Active disability(Confirmed)3 Generalized anxiety Active disorder(Confirmed) History of compound ankle fracture Active 1988(Confirmed) Hyperlipidemia(Confirmed)4 Active Hypertension(Confirmed) Active Impaired glucose tolerance(Confirmed) Active Impingement syndrome of right Active shoulder(Confirmed) Low back pain(Confirmed)5, 6, 7, 8, 9 Active Macular degeneration(Confirmed) Active Major depressive disorder, single Active episode(Confirmed) Mechanical low back pain(Confirmed) Active Neck pain, mechanical(Confirmed) Active Osteopenia(Confirmed)10 Active Leg pain, bilateral(Confirmed) Active Risk assessment: SOAPP-R(Confirmed)11 Active Risk assessment: Adverse Childhood Active Experience(Confirmed)12 Heart murmur, systolic(Confirmed) Active Vitamin D deficiency(Confirmed) Active 1neg stress ctbo9Svx back pain DOI 04/08/200810084sqpgvup Oswestry Disability Index: 62% ( crippled ) on 06/30/18; initial [place] Back Pain Scale: 81 on goal < 130 smoker, DVo3ohrtzvg point injections-neuro Dr HollowayYofqcq6smay management per Dr Alexis macon- [id number] [id number] joint dysfunction status post [id number] 05/24 degenerative changes, L5 S1 facet joint inflam-nz00Facv score 0.6 hip, 5.7 [id number]-K: 15 on 2ACE score: 6 on 11/11/18 Social History Social History Type Response Smoking Status Cigars or pipes but not tad y within last 30 days entered on: 07/29/20 Sex
--- OUTSIDE RECORDS SUMMARY | 2022-04-27 19:45 | XMS_ITS | Continuity of Care Document ---
:1955 Author Organization [facility] Address [address] [place] [id number]- Care Team Providers Name Role Phone Kelsie Oliver Primary Care Physician Encounter [facility] Date(s): 01/19/22 - 01/19/[address] [address] Discharge Disposition: A-D/C Home Attending Physician: Jacquie Sterling MD Admitting Physician: Jacquie Sterling MD Referring Physician: Jacquie Sterling MD Allergies, Adverse Reactions, Alerts Substance Reaction Severity Status doxycycline rash Active tetracycline red blotches Persistent Moderate Active penicillin rash Active Cymbalta Active nonsteroidal anti-inflammatory agents [...] 90 tablet, 1 Refills, 07/24/21 14:35:00 EDT, [facility], 160, cm, 02/16/21 11:16:00 [...] 0 Refills, Soft Stop, 01/03/22 14:49:00 EDT, [facility], Partial fill upon patient [...] 1 Refills, Maintenance, 09/17/21 16:40:00 EDT, Patch, [facility], 24 hr Topically Daily, 160, cm, 09/15/21 4:30:00 EDT, Height, 74, kg, 09/13/21 20:36:00 EDT, Dry Weight Start Date: 09/17/21 Status: OrderedPEG-3350 with Electrolytes (Eqv-GoLYTELY) oral powder for reconstitution See Instructions, 1 glass every 15-30 minutes until finished, # 4,000 mL, 0 Refills, Maintenance, 01/08/22 13:55:00 EDT, [facility], Partial fill upon patient request if the prescription is fora schedule II opioid drug., 1 glass every 15-30 m... Start Date: 01/08/22 Status: OrderedSenna 8.8 mg/5 mL oral syrup 10 mL, By Mouth, Daily at bedtime, # 900 mL, 3 Refills, Maintenance, 01/18/22 13:14:00 EDT, [facility], 10 mL By Mouth [...] artery Confirmed Active stenosis, left 1neg stress [id number] Oswestry Disability Index: 58% (26/45; severe disability ); updated [place] Back Pain Disability Scale score: 71 both on 07/20/20 3initial Oswestry Disability Index: 62% ( crippled ) on 06/30/18; initial [place] Back Pain Scale: 81 on goal < 130 smoker, AHk9Zckp score 0.6 hip, 5.7 other Results Radiology Reports Exam Date Time Procedure Performing Provider Status 01/19/22 9:28 AM Chest Portable Kowalski, Mark; Auth (Verified) Notes:(Chest Portable) Reason For Exam: PostopRESULT: Chest Portable Chest Portable Reason: Postop; Clinical Question(s): Pneumothorax COMPARISON: Chest CT dated January 17, 2022 FINDINGS: LINES AND TUBES: None. LUNGS AND PLEURA: Low lung volumes with bronchovascular crowding and mild vascular congestion. No pneumothorax or pleural effusion. HEART, MEDIASTINUM AND KEYANNA: Heart is normal in size. Normal mediastinal and hilar contour. BONES AND SOFT TISSUES: No acute abnormality. IMPRESSION: Low lung volumes. No pneumothorax. WSN: [id number] Ordering Physician: Christopher Wadsworth Dictated By: Vinicio Bingham MD Dictated Date/Time: 01/19/22 3:40 pm Reviewed By: Vinicio Bingham MD Signed By: Vinicio Bingham MD Signed Date/Time: 01/19/22 3:40 pm Transcribed By: SHAHNAZ Transcribed Date/Time: 01/19/22 3:38 pm Vital Signs Most recent to oldest 1 2 3 [Reference Range]: Oxygen Saturation [94-100 %] 96 % 98 % 100 % (01/19/22 9:30 AM) (01/19/22 9:19 AM) (01/19/22 9:1 1 AM) Pulse Rate [55-90 bpm] 72 bpm 68 bpm (01/19/22 9:01 AM) (01/19/22 6:51 AM) Blood Pressure [90-138/55-84 mm 146/62 mm Hg 153/56 mm Hg 159/66 mm Hg Hg] *H* *H* *H* (01/19/22 9:30 AM) (01/19/22 9:19 AM) (01/19/22 9:1 1 AM) Respiratory Rate [16-30 br/min] 14 br/min 16 br/min 18 br/min *L* (01/19/22 9:19 AM) (01/19/22 9:11 AM) (01/19/22 9:30 AM) Temperature [96.8-100.4 DegF] 97 DegF 98.2 DegF (01/19/22 9:01 AM) (01/19/22 6:51 AM) Liters per Minute 8 L/min 8 L/min 10 L/min (01/19/22 9:11 AM) (01/19/22 9:06 AM) (01/19/22 9:0 1 AM) Mode of Delivery (Oxygen) Room air Room air Simple face mask (01/19/22 9:30 AM) (01/19/22 9:19 AM) (01/19/22 9:1 1 AM) Blood pressure sites Arm, right Arm, right Arm, right (01/19/22 9:30 AM) (01/19/22 9:19 AM) (01/19/22 9:1 1 AM) Temperature Route Temporal Temporal (01/19/22 9:01 AM) (01/19/22 6:51 AM) Social History Social History Type Response Smoking Status 5-9 cigarettes (between 1/4 to 1/2 pack)/day in last 30 days; Interested in cessation: Yes; Type: Cigarettes; Other: 5 CIG/D X 40 YEARS; Tobacco use times per day: 1/2-1 ppd x 40 years; currently 5/day; Number of years: 40; Total pack years: 30; entered on: 01/02/22 Sex Female Portable XR Chest Views BHSPowerscribe , CIS S: TRANSCRIBE Vinicio Bingham MD: VERIFY Event Display: Result: Authored Date: [id number] Chest Portable Reason: Postop; Clinical Question(s): Pneumothorax COMPARISON: Chest CT dated January 17, 2022 FINDINGS: LINES AND TUBES: None. LUNGS AND PLEURA: Low lung volumes with bronchovascular crowding and mild vascular congestion. No pneumothorax or pleural effusion. HEART, MEDIASTINUM AND KEYANNA: Heart is normal in size. Normal mediastinal and hilar contour. BONES AND SOFT TISSUES: No acute abnormality. IMPRESSION: Low lung volumes. No pneumothorax. WSN: [id number] Ordering Physician: Christopher Wadsworth Dictated By: Vinicio Bingham MD Dictated Date/Time: 01/19/22 3:40 pm Reviewed By: Vinicio Bingham MD Signed By: Vinicio Bingham MD Signed Date/Time: 01/19/22 3:40 pm Transcribed By: SHAHNAZ Transcribed Date/Time: 01/19/22 3:38 pm Patient Care team information PersonnelName: Kelsie Oliver Address: Address: [address] [place], [place] [address] [[email or web address]]
--- OUTSIDE RECORDS SUMMARY | 2022-04-27 19:45 | XMS_ITS | Continuity of Care Document ---
:1955 Author Organization [facility] Address [address] [place] [address]- Care Team Providers Name Role Phone Kelsie Oliver Primary Care Physician [place] [facility] [place] Date(s): 07/29/20 - 08/28/20 [facility] [address] [place] [address]- Allergies, Adverse Reactions, Alerts Substance Reaction Severity [...] 07/12/20 11:52:00 EDT, Route to Pharmacy Electronically, [facility], 160.2, cm, 06/30/20 13:45:00 EDT, Height Start Date: 07/12/20 Stop Date: 01/08/21 Status: OrderedAspirin 81, mg, By Mouth, Daily, 0, 0, 04/12/06 11:40:18, Print RADHA Number, [id number], Constant Indicator Start Date: 04/12/06 Status: OrderedControlled [...] tablet, 1 Refills, Maintenance, 06/29/20 8:06:00 EDT, [facility], 160.2, cm, 05/30/20 11:21:00 [...] 1 Refills, Maintenance, 04/09/20 9:33:00 EST, Tablet, [facility], 160.2, cm, 03/24/20 12:29:00 EST, Height Start Date: 04/09/20 Stop Date: 10/06/20 Status: Orderedlisinopril 40 mg oral tablet 1 tablet = 40 mg, By Mouth, Daily, # 90 tablet, 1 Refills, Maintenance, 07/12/20 11:52:00 EDT, Tablet, [facility], 160.2, cm, 06/30/20 13:45:00 EDT, Height Start Date: 07/12/20 Status: OrderedLyrica 50 mg oral capsule 1 capsule = 50 mg, By Mouth, 3 times a day, # 42 capsule, 1 Refills, Maintenance, 08/19/20 14:28:00 EDT, Capsule, [facility], Partial fill upon patient [...] Acute 09/05/20 11:21:00 EDT, 08/22/2110:21:00 EDT, Patch, [facility], Partial fill upon patient request if the prescription is for a schedule II opioid drug., 1 patch Topically Da... Start Date: 08/22/20 Stop Date: 09/05/20 Status: OrderedtraZODone 50 mg oral tablet 25 mg, 0.5, tablet, By Mouth, Daily at bedtime, # 15 tablet, Refills 3, Tot. Refills 3, Maintenance,08/08/20 10:06:00 EDT, Route to Pharmacy Electronically, [facility], Discontinue Cymbalta, 160, cm, 08/08/20 9:24:00 EDT, Height, 67.9, kg, 05... Start Date: 08/08/20 Stop Date: 12/06/20 Status: OrderedValium 5 mg oral tablet 5 mg, 1, tablet, By Mouth, 2 times a day, PRN, for 14 days, # 28 tablet, Refills 1, Tot. Refills 1, Acute 09/16/20 14:28:00 EDT, Pain , Severe, 08/19/20 14:28:00 EDT, Route to Pharmacy Electronically, [facility], Partial fill upon patient requ... [...] Active Vitamin D deficiency(Confirmed) Active 1neg stress kpau6Msw back pain DOI 04/08/200879565oyxkjpl Oswestry Disability Index: 62% ( crippled ) on 06/30/18; initial [place] Back Pain Scale: 81 on goal < 130 smoker, BWe2jjnlark point injections-neuro Dr HollowayAyktrr9eozj management per Dr Alexis [place]- fzdnn3DGVR SRWVM6DE joint dysfunction status post zzkyjjnmv0UXO 05/24 degenerative changes, L5 S1 facet joint inflam-mf01Dnud score 0.6 hip, 5.7 eymrl66DGGQV-I: 15 on 2ACE score: 6 on 11/11/18 Social History Social History Type Response Smoking Status Cigars or pipes but not tad y within last 30 days entered on: 07/29/20 Sex
--- OUTSIDE RECORDS SUMMARY | 2022-04-27 19:45 | XMS_ITS | Continuity of Care Document ---
:1955 Author Organization [facility] Address [address] [place] [address]- Care Team Providers Name Role Phone Kelsie Oliver Primary Care Physician Encounter [facility] [place] Date(s): 03/27/19 - 04/06/19 [facility] [address] [place] [address]- [facility] Attending Physician: Admtr, Brenton Allergies, Adverse Reactions, Alerts [...] 09/22/18 14:57:41 EDT, Route to Pharmacy Electronically, [id number], [facility] Start Date: 09/22/18 Stop Date: 09/17/19 Status: OrderedAspirin 81, mg, By Mouth, Daily, 0, 0, 04/12/06 11:40:18, Print RADHA Number, [id number], Constant Indicator Start Date: 04/12/06 Status: OrderedAzithromycin 5 Day Dose Pack 250 mg oral tablet 1 pack/packet, By Mouth, Once, # 6 tablet, 0 Refills, Soft Stop, 03/27/19 14:02:00 EST, Tablet, [facility], 160.5, cm, 03/27/19 13:36:00 EST, Height Start Date: 03/27/19 Status: OrderedClaritin 10 mg oral tablet 10 mg, 1, tablet, By Mouth, Daily, # 90 tablet, Refills 3, Tot. Refills 3, Maintenance, 03/27/19 14:00:00 EST, Route to Pharmacy Electronically, [facility], 160.5, cm, 03/27/19 13:36:00 EST, Height Start Date: 03/27/19 Status: OrderedColace Clear = 50 mg, By Mouth, 2 times a day, 0 Refills, Maintenance, 04/16/16 11:25:20 Start Date: 04/16/16 Status: OrderedControlled Substance Agreement Controlled Substance Agreement, See Instructions, # 1 each, Refills 0, Tot. Refills 0, Maintenance, controlled substance agreement signed 10/16/18, pharmacy [facility], dx: mechanical low back pain, 10/16/18 [...] Refills, Maintenance, Tablet, Route to Pharmacy Electronically, [id number], [facility] Start Date: 09/22/18 Stop [...] tablet, 0 Refills, Maintenance, 03/25/19 11:08:00 EST, [facility], Partial fill upon patient request., [...] take 4th tablet for severe spasms, dose bolmppnoa27/15, # 112 tablet, Refills 1, Tot. Refills 1, Maintenance, muscle spasm, 02/11/19 12:11:00 EST, Route to Pharmacy Electronically, [id number]... Start Date: 02/11/19 Status: OrderedVitamin D3 By [...] Active Vitamin D deficiency(Confirmed) Active 1neg stress gxur8Ekq back pain DOI 04/08/200833348mnzmpcu Oswestry Disability Index: 62% ( crippled ) on 06/30/18; initial [place] Back Pain Scale: 81 on goal < 130 smoker, FZb5tazkoel point injections-neuro Dr HollowayRvzncd1vlzf management per Dr Alexis [place]- ynphw4IKRY PAFID2EX joint dysfunction status post usprlrltj7GFO 05/24 degenerative changes, L5 S1 facet joint inflam-im78Bkzj score 0.6 hip, 5.7 mzfsi84FNAVY-E: 15 on 2ACE score: 6 on 11/11/18 Procedures Procedure Date Related Diagnosis Body Site Status colonoscopy1 10/16/10 Completed 1Pleet- repeat 5 years for Fhx Social History Social History Type Response Smoking Status 10 or more cigarettes (1/2 p ack or more)/day in last 30 days; Type: Cigarettes; Other: 1ppd-1/2ppd; Started at age: 24; entered on: 09/22/18 Sex
--- OUTSIDE RECORDS SUMMARY | 2022-04-27 19:45 | XMS_ITS | Continuity of Care Document ---
:1955 Author Organization [facility] Address Unavailable , Care Team Providers Name Role Phone Kelsie Oliver Primary Care Physician Encounter [facility] [place] Date(s): 09/29/21 - 10/29/21 [facility] Attending Physician: Brenton Cabrera Admitting Physician: trBrenton Referring Physician: trBrenton Allergies, Adverse Reactions, Alerts Substance Reaction Severity [...] 90 tablet, 1 Refills, 07/24/21 14:35:00 EDT, [facility], 160, cm, 02/16/21 11:16:00 EST, Height, 64, kg, 01/19/21 11:44:00 EDT, Dry Weight Start Date: 07/24/21 Status: Orderedcyanocobalamin 1000 mcg oral tablet 1,000 mcg, 1, tablet, By Mouth, Daily, # 90 tablet, Refills 1, Tot. Refills 1, Maintenance, 09/18/2215:40:00 EDT, Route to Pharmacy Electronically, [facility], 160, cm, 09/15/21 4:30:00 EDT, Height, 74, kg, 09/13/21 20:36:00 EDT, Dry Weight Start Date: 09/17/21 Status: Ordereddiltiazem 180 mg/24 hours oral capsule, extended release 180 mg, 1, capsule, By Mouth, Daily, # 30 capsule, Refills 5, Tot. Refills 5, Maintenance, 09/17/21 16:39:00 EDT, Route to Pharmacy Electronically, [facility], 160, cm, 09/15/21 4:30:00 EDT, [...] Active Paroxysmal atrial flutter(Confirmed) Active 1neg stress ipuh1Srjahnn Oswestry Disability Index: 58% (26/45; severe disability ); updated [place] Back Pain Disability Scale score: 71 both on 07/20/20 3initial Oswestry Disability Index: 62% ( crippled ) on 06/30/18; initial [place] Back Pain Scale: 81 on goal < 130 smoker, CKg4Sqtb score 0.6 hip, 5.7 other Social History Social History Type Response Smoking Status 5-9 cigarettes (between 1/4 to 1/2 pack)/day in last 30 days; Interested in cessation: No; Patient wants NRT during admission Yes entered on: 09/13/21 Sex Female
--- OUTSIDE RECORDS SUMMARY | 2022-04-27 19:45 | XMS_ITS | Continuity of Care Document ---
:1955 Author Organization [facility] Address [address] [place] [address]- Care Team Providers Name Role Phone Kelsie Oliver Primary Care Physician Encounter [facility] [place] Date(s): 09/15/20 - 10/15/20 [facility] [address] [place] [address]- Allergies, Adverse Reactions, Alerts Substance Reaction Severity [...] 11:52:00 EDT, Route to Pharmacy Electronically, [facility], 160.2, cm, 06/30/20 13:45:00 EDT, Height Start Date: 07/12/20 Stop Date: 01/08/21 Status: OrderedAspirin 81, mg, By Mouth, Daily, 0, 0, 04/12/06 11:40:18, Print RADHA Number, [id number], Constant Indicator Start Date: 04/12/06 Status: OrderedControlled [...] 1 Refills, Maintenance, 06/29/20 8:06:00 EDT, [facility], 160.2, [...] Refills, Maintenance, 07/12/20 11:52:00 EDT, Tablet, [facility], [...] 11/18/20 8:00:00 EDT, 09/16/20 7:57:00 EDT, Patch, [facility], Partial fill upon patient request if the prescription is for a schedule IIopioid drug., 1 patch Topically Daily, 160, cm, 0... Start Date: 09/16/20 Stop Date: 11/18/20 Status: OrderedoxyCODONE 10 mg oral tablet 0.5 to 1 tablet, By Mouth, Every 6 hours, PRN pain r/t work injury, # 35 tablet, 0 Refills, Maintenance, 09/14/20 17:19:00 EDT, [facility], 160, cm, 08/30/20 [...] Active Vitamin D deficiency(Confirmed) Active 1neg stress jdmb6Wlz back pain DOI 04/08/200874113Wkwtzly Oswestry Disability Index: 58% (26/45; severe disability ); updated [place] Back Pain Disability Scale score: 71 both on initial Oswestry Disability Index: 62% ( crippled ) on 06/30/18; initial [place] Back Pain Scale: 81 on goal < 130 smoker, FHx6 trigger point injections-neuro Dr HollowayRbxlwl9bejf management per Dr Alexis [place]- mlxzh4DMGS NUPVJ9PA joint dysfunction status post scsfdkikq61RKU 05/24 degenerative changes, L5 S1 facet joint inflam-yv69Diyh score 0.6 hip, 5.7 nebvh18VFRNT-N: 15 on 3ACE score: 6 on 11/11/18 Social History Social History Type Response Smoking Status Cigars or pipes but not tad y within last 30 days entered on: 07/29/20 Sex
--- OUTSIDE RECORDS SUMMARY | 2022-04-27 19:45 | XMS_ITS | Continuity of Care Document ---
:1955 Author Organization [facility] Address [address] [place] [address]- Care Team Providers Name Role Phone Kelsie Oliver Primary Care Physician [place] [facility] [place] 09/12/20 - 10/12/20 [facility] [address] [place] [address]- Allergies, Adverse Reactions, Alerts Substance Reaction Severity [...] 11:52:00 EDT, Route to Pharmacy Electronically, [facility], 160.2, cm, 06/30/20 13:45:00 EDT, Height Start Date: 07/12/20 Stop Date: 01/08/21 Status: OrderedAspirin 81, mg, By Mouth, Daily, 0, 0, 04/12/06 11:40:18, Print RADHA Number, [id number], Constant Indicator Start Date: 04/12/06 Status: OrderedControlled [...] 3 Refills, Maintenance, 09/13/20 17:40:00 EDT, Capsule, [facility], Partial fill upon [...] 11/18/20 8:00:00 EDT, 09/16/20 7:57:00 EDT, Patch, [facility], Partial fill upon patient request if the prescription is for a schedule IIopioid drug., 1 patch Topically Daily, 160, cm, 0... Start Date: 09/16/20 Stop Date: 11/18/20 Status: OrderedoxyCODONE 10 mg oral tablet 0.5 to 1 tablet, By Mouth, Every 6 hours, PRN pain r/t work injury, # 35 tablet, 0 Refills, Maintenance, 09/14/20 17:19:00 EDT, [facility], 160, cm, 08/30/20 [...] Active Vitamin D deficiency(Confirmed) Active 1neg stress fdvz0Zmi back pain DOI 04/08/200874392Hjxikqb Oswestry Disability Index: 58% (26/45; severe disability ); updated [place] Back Pain Disability Scale score: 71 both on initial Oswestry Disability Index: 62% ( crippled ) on 06/30/18; initial [place] Back Pain Scale: 81 on goal < 130 smoker, FHx6 trigger point injections-neuro Dr HollowayEbmoey7kkjr management per Dr Alexis [place]- jduhh7FYWW VRUUZ1WG joint dysfunction status post hhofbfsgi69UJA 05/24 degenerative changes, L5 S1 facet joint inflam-fy12Crgi score 0.6 hip, 5.7 inrjj43FHUIC-R: 15 on 3ACE score: 6 on 11/11/18 Social History Social History Type Response Smoking Status Cigars or pipes but not tad y within last 30 days entered on: 07/29/20 Sex
--- OUTSIDE RECORDS SUMMARY | 2022-04-27 19:45 | XMS_ITS | Continuity of Care Document ---
:1955 Author Organization [facility] Address [address] [place] [address]- Care Team Providers Name Role Phone Kelsie Oliver Primary Care Physician Encounter [facility] Date(s): 07/29/20 - 07/31/[address] [address] Discharge Disposition: A-D/C Home Attending Physician: Megan Mercer MD Admitting Physician: Rebeca SHARPE, Zeinab Referring Physician: Winston Ruiz MD Allergies, Adverse Reactions, Alerts Substance Reaction [...] 07/12/20 11:52:00 EDT, Route to Pharmacy Electronically, [facility] 160.2, cm, 06/30/20 13:45:00 EDT, Height Start Date: 07/12/20 Stop Date: 01/08/21 Status: OrderedamLODIPine 5 mg oral tablet 5 mg, Tablet, By Mouth, 07/31/20 9:00:00 EDT Start Date: 07/31/20 Stop Date: 07/31/20 Status: CompletedAspirin 81, mg, By Mouth, Daily, 0, 0, 04/12/06 11:40:18, Print RADHA Number, [id number], Constant Indicator Start Date: 04/12/06 Status: OrderedControlled Substance Agreement Controlled Substance Agreement, See Instructions, # 1 each, Refills 0, Tot. Refills 0, Maintenance, controlled substance agreement signed 10/16/18 Updated: 07/20/[address] [facility] Geraldo dx: mechanical low back pain [...] capsule, By Mouth, 3 times a day, PRN, Driving while taking gabapentin, # 90 capsule, Refills 0, Tot. Refills 0, Maintenance, Anxiety, 07/31/20 14:25:00 EDT, Route to Pharmacy Electronically, [facility], Partial fill upon patient re... Start Date: 07/31/20 Stop Date: 08/30/20 Status: Orderedipratropium nasal 21 mcg/inh spray 1 sprays, Nares, Both, 3 times a day, for 7 days, for excessive nasal drainage only, # 1 each, 0 Refills, Acute 08/07/20 14:26:00 EDT, 07/31/20 14:26:00 EDT, [facility], Partial [...] 10/16/18 Status: OrderedoxyCODONE 10 mg oral tablet 0 Refills, Maintenance, 07/20/20 13:18:00 EDT, Partial fill upon patient request if the prescriptionis for a schedule II opioid drug. Start Date: 07/20/20 Status: OrderedToradol Inj 15 mg, Injection, IV Push Slowly, Every 6 hours for 5 days, PRN for Pain , Severe, Routine, 07/29/2121:20:00 EDT, Stop date 08/03/20 22:19:00 EDT Start Date: 07/29/20 Stop Date: 08/01/20 Status: DiscontinuedVitamin D3 By Mouth, 0 Refills, Maintenance, 04/29/17 [...] Active Vitamin D deficiency(Confirmed) Active 1neg stress relx0Sgf back pain DOI 04/08/200868779jwhfspa Oswestry Disability Index: 62% ( crippled ) on 06/30/18; initial [place] Back Pain Scale: 81 on goal < 130 smoker, VYm8vwxwmjv point injections-neuro Dr HollowayCalrnz2iklw management per Dr Alexis [place]- xwsja7UBOP GDZUS8DB joint dysfunction status post kuabkbtky0JUJ 05/24 degenerative changes, L5 S1 facet joint inflam-nf63Mtqi score 0.6 hip, 5.7 aovhk31TXFPQ-L: 15 on 2ACE score: 6 on 11/11/18 Vital Signs Most recent to oldest 1 2 3 [Reference Range]: Height 160 cm 160 cm 160 cm (07/31/20 5:11 AM) (07/30/20 7:31 PM) (07/30/20 2:2 4 PM) Weight 68 kg 68 kg (07/29/20 8:25 PM) (07/29/20 7:46 PM) Oxygen Saturation [94-100 %] 98 % 96 % 91 % (07/31/20 2:00 PM) (07/31/20 5:11 AM) *L* (07/30/20 7:31 PM ) Pulse Rate [55-90 bpm] 74 bpm 70 bpm 74 bpm (07/31/20 2:00 PM) (07/31/20 5:11 AM) (07/30/20 7:3 1 PM) Body Mass Index [18.5-24.99] 26.56 *H* (07/29/20 7:46 PM) Blood Pressure [90-138/55-84 119/70 mm Hg 110/73 mm Hg 107 /57 mm Hg mm Hg] (07/31/20 2:00 PM) (07/31/20 7:54 AM) (07/31/20 5:1 1 AM) Respiratory Rate [16-30 24 br/min 20 br/min 18 br/mi n br/min] (07/31/20 2:00 PM) (07/31/20 12:09 PM) (07/31/20 5: 11 AM) Temperature [96.8-100.4 DegF] 98.4 DegF 97.7 DegF 98 .3 DegF (07/31/20 2:00 PM) (07/31/20 5:11 AM) (07/30/20 7:3 1 PM) Mode of Delivery (Oxygen) Room air Room air Room a ir (07/31/20 2:00 PM) (07/31/20 5:11 AM) (07/30/20 7:3 1 PM) Blood pressure sites Arm, left Arm, left Arm, right (07/31/20 2:00 PM) (07/31/20 5:11 AM) (07/30/20 7:3 1 PM) Temperature Route Oral Oral Oral (07/31/20 2:00 PM) (07/31/20 5:11 AM) (07/30/20 7:3 1 PM) Dry Weight 68 kg (07/29/20 8:25 PM) Social History Social History Type Response Smoking Status Cigars or pipes but not tad y within last 30 days entered on: 07/29/20 Sex
--- OUTSIDE RECORDS SUMMARY | 2022-04-27 19:45 | XMS_ITS | Continuity of Care Document ---
:1955 Author Organization [facility] Address [address] [place] [address]- Care Team Providers Name Role Phone Kelsie Oliver Primary Care Physician [place] [facility] [place] 07[place]20 [facility] [address] [place] [address]- Allergies, Adverse Reactions, Alerts Substance Reaction Severity [...] 07/12/20 11:52:00 EDT, Route to Pharmacy Electronically, [facility], 160.2, cm, 06/30/20 13:45:00 EDT, Height Start Date: 07/12/20 Stop Date: 01/08/21 Status: OrderedAspirin 81, mg, By Mouth, Daily, 0, 0, 04/12/06 11:40:18, Print RADHA Number, [id number], Constant Indicator Start Date: 04/12/06 Status: OrderedColace [...] 13:09:44 EDT, Compound Start Date: 10/16/18 Status: Orderedfamotidine 40 mg oral tablet See Instructions, 1 tab po 1 or 2 times per day., # 56 tablet, 1 Refills, Maintenance, 06/29/20 8:06:00 EDT, [facility], 160.2, cm, 05/30/20 11:21:00 [...] 1 Refills, Maintenance, 04/09/20 9:33:00 EST, Tablet, [facility], 160.2, cm, 03/24/20 12:29:00 EST, Height Start Date: 04/09/20 Stop Date: 10/06/20 Status: Orderedlisinopril 40 mg oral tablet 1 tablet = 40 mg, By Mouth, Daily, # 90 tablet, 1 Refills, Maintenance, 07/12/20 11:52:00 EDT, Tablet, [facility], 160.2, cm, 06/30/20 13:45:00 [...] tablet, 0 Refills, Maintenance, 05/31/20 7:58:00 EDT, [facility], Partial fill upon patient request. [...] 05/31/20 7:58:00 EDT, Route to Pharmacy Electronically, [facility], 160.2, cm, 05/30/20 11... Start [...] Active Vitamin D deficiency(Confirmed) Active 1neg stress kbbc0Wmq back pain DOI 04/08/200874641tparxfj Oswestry Disability Index: 62% ( crippled ) on 06/30/18; initial [place] Back Pain Scale: 81 on goal < 130 smoker, WLp0keliemh point injections-neuro Dr HollowayDvbqjq6pykh management per Dr Alexis thurston- fankc4NWSP XHPCL5PX joint dysfunction status post rtangerck7VZA 05/24 degenerative changes, L5 S1 facet joint inflam-yd70Pvlp score 0.6 hip, 5.7 etfng24MMRSR-H: 15 on 2ACE score: 6 on 11/11/18 Social History Social History Type Response Smoking Status 10 or more cigarettes (1/2 p ack or more)/day in last 30 days; Type: Cigarettes; Other: 1ppd-1/2ppd; Started at age: 24; entered on: 09/22/18 Sex
--- OUTSIDE RECORDS SUMMARY | 2022-04-27 19:45 | XMS_ITS | Continuity of Care Document ---
:1955 Author Organization [facility] [place] Address [address] [place] [address]- Care Team Providers Name Role Phone Kelsie Oliver Primary Care Physician Encounter [facility] Date(s): 12/20/21 - 04/19/22 [facility] [address] [place] [address]- Attending Physician: Cher Carver NP Referring Physician: Kelsie Oliver Allergies, Adverse Reactions, Alerts Substance Reaction Severity Status doxycycline rash Active tetracycline red blotches Persistent Moderate Active amoxicillin Active nonsteroidal anti-inflammatory agents [D]Wheezing Active Adhesive Bandage Active Cymbalta Active penicillin rash Active sulfa drugs Active Flexeril rash Active Immunizations Given and Recorded Vaccine Date Status Refusal Reason influenza virus vaccine, inactivated 03/06/22 Given influenza virus vaccine, inactivated 02/15/22 Recorded [id number] bivalent booster vax 12/13/21 Recorde d SARS-CoV-2 (COVID-19) mRNA-1273 vaccine 03/06/21 Recorded SARS-CoV-2 (COVID-19) mRNA-1273 vaccine 06/12/20 Recorded SARS-CoV-2 (COVID-19) mRNA-1273 vaccine 05/15/20 Recorded tetanus/diphtheria/pertussis, acel(Tdap) 06/02/15 Given tetanus-diphtheria toxoids (Td)1 05/16/05 Given 1Admin Note: [facility] Medications amLODIPine 2.5 mg oral tablet 2.5 mg, 1, tablet, By Mouth, Daily, # 30 tablet, Refills 0, Tot. Refills 0, Maintenance, 04/14/22 9:47:00 EST, Route to Pharmacy Electronically, [facility], Partial fill upon patient request ifthe prescription is for a schedule II opioid drug... Start Date: 04/14/22 Status: Orderedatorvastatin 10 mg oral tablet 1 tablet = 10 mg, By Mouth, Daily at bedtime, Maintenance, 03/11/22 14:26:00 EST, ; Start Date: 03/11/22 Status: OrderedEffexor XR 37.5 mg oral capsule, extended release 37.5 mg, 1, capsule, By Mouth, Daily, Refills 0, Maintenance, 04/12/22 11:38:00 EST, Partial fill upon patient request if the prescription is for a schedule II opioid drug. Start Date: 04/12/22 Status: OrderedEliquis 5 mg oral tablet 1 tablet = 5 mg, By Mouth, 2 times a day, 5 Refills, Maintenance, 03/05/22 23:57:00 EST, Tablet, ; Start Date: 03/05/22 Status: OrderedLORazepam 0.5 [...] 04/03/22 13:43:00 EST, Route to Pharmacy Electronically, [facility], Par... Start Date: 04/03/22 Status: Orderedpantoprazole 40 mg oral delayed release tablet = 40 mg, By Mouth, Daily, # 30 tablet, 0 Refills, Maintenance, 04/14/22 9:55:00 EST, EC Tablet, 162,cm, 04/14/22 9:12:00 EST, Height, 71.1, kg, 04/12/22 17:56:00 EST, Dry Weight Start Date: 04/14/22 Stop Date: 05/14/22 Status: OrderedSenna 8.6 mg oral tablet 8.6 [...] adenocarcinoma of upper lobe of left lung ([id number]) MDD (major depressive Confirmed Active disorder), recurrent episode, moderate Subclavian artery Confirmed Active stenosis, left Tubular adenoma of Confirmed Active colon Vertebral artery Confirmed Active occlusion 1neg stress [id number] Oswestry Disability Index: 58% (26/45; severe disability ); updated [place] Back Pain Disability Scale score: 71 both on 07/20/20 3initial Oswestry Disability Index: 62% ( crippled ) on 06/30/18; initial [place] Back Pain Scale: 81 on goal < 130 smoker, FQj1Xdeo score 0.6 hip, 5.7 other Social History Social History Type Response Smoking Status Use: 4 or less cigarettes(le ss than 1/4 pack)/day in last 30 days; Former smoker, quit more than 30 days ago; Other: QUIT 2 WEEKS AGO (01/17/2022); PRIOR TO THAT WAS ONLY 2-3 CIG/D X AGE 22; entered on: 01/31/22 Sex Patient Care team information Care Team PersonnelName: Kelsie Oliver Position: [facility] PCO Associate Professional Member Role: PCP Address: Address: [address] [place] [id number]- Name: Manas Landaverde RN Position: [facility] RN Member Role: Primary Care Nurse Name: Aide Reid RN Position: [facility] RN Member Role: Primary Care Nurse Name: Rosey Kramer RN Position: [facility] RN Member Role: Primary Care Nurse Name: Kyra Byrne RN Position: [facility] RN Member Role: Primary Care Nurse Name: Ryan Blackmon DO Position: [facility] Physician -Physician Practices Member Role: [employer] Physician Address: Address: [address] [place] [phone]- [place] Name: Karen Stearns RN Position: [facility] RN Member Role: Primary Care Nurse Name: Karen Padilla RN Position: [facility] RN Member Role: Primary Care Nurse Care Team Related PersonsName: SILVER ROSSI Name: LASHAY MORLEY Address: home [address] [place] [address]
--- OUTSIDE RECORDS SUMMARY | 2022-04-27 19:45 | XMS_ITS | Continuity of Care Document ---
:1955 Author Organization [facility] Address [address] [place] [id number]- Care Team Providers Name Role Phone Kelsie Oliver Primary Care Physician Encounter [facility] [place] Date(s): 02/25/19 - 03/07/19 [facility] [address] [place] [address] [facility] Attending Physician: Brenton Cabrera Admitting Physician: [...] 09/22/18 14:57:41 EDT, Route to Pharmacy Electronically, [id number], [facility] Start Date: 09/22/18 Stop Date: 09/17/19 Status: OrderedAspirin 81, mg, By Mouth, Daily, 0, 0, 04/12/06 11:40:18, Print RADHA Number, [id number], Constant Indicator Start Date: 04/12/06 Status: OrderedColace Clear = 50 mg, By Mouth, 2 times a day, 0 Refills, Maintenance, 04/16/16 11:25:20 Start Date: 04/16/16 Status: OrderedControlled Substance Agreement Controlled Substance Agreement, See Instructions, # 1 each, Refills 0, Tot. Refills 0, Maintenance, controlled substance agreement signed 10/16/18, pharmacy [facility], dx: mechanical low back pain, 10/16/18 13:09:44 EDT, Compound Start Date: 10/16/18 Status: Orderedfamotidine 20 mg oral tablet 20 mg, 1, tablet, By Mouth, 2 times a day, This replaces ranitidine., # 56 tablet, Refills 2, Tot. Refills 2, Maintenance, 02/17/19 17:15:26 EST, Route to Pharmacy Electronically, [id number], [facility], 160.5, cm, 11... Start Date: 02/17/19 Status: OrderedFlector Patch 1.3% topical film, extended release 1 patch, Topically, 2 times a day, PRN for pain, # 30 patch, 0 Refills, Maintenance, 04/16/16 11:24:30, Patch Start Date: 04/16/16 Status: OrderedHYDROmorphone 2 mg oral tablet See Instructions, 1 to 2 tabs by mouth every 3-5 hours, max 4.5 tabs daily., # 126 tablet, 0 Refills, Maintenance, 02/04/19 11:42:00 EST, Partial fill upon patient request Start Date: 02/04/19 Status: OrderedLipitor 10 mg oral tablet 1 tablet = 10 mg, By Mouth, Daily, # 90 tablet, 3 Refills, Maintenance, Tablet, Route to Pharmacy Electronically, [id number], [facility] Start Date: 09/22/18 Stop [...] take 4th tablet as needed for severe pain, # 56 tablet, 0 Refills, Maintenance, 02/25/19 16:07:00 EST, Partial fill upon patient request. This replaces hydromorphone., 160.5, cm, 02/25/19 15:13:07 EST,... Start Date: 02/25/19 Status: OrderedSenna By Mouth, Daily, 0 Refills, [...] take 4th tablet for severe spasms, dose meuewxsxv82/15, # 112 tablet, Refills 1, Tot. Refills 1, Maintenance, muscle spasm, 02/11/19 12:11:00 EST, Route to Pharmacy Electronically, [id number]... Start Date: 02/11/19 Status: OrderedVitamin D3 By [...] Active Vitamin D deficiency(Confirmed) Active 1neg stress qlmt3Nko back pain DOI 04/08/200835549jaeruwf Oswestry Disability Index: 62% ( crippled ) on 06/30/18; initial [place] Back Pain Scale: 81 on goal < 130 smoker, WBd9enjlevc point injections-neuro Dr HollowayRfzxpw5ghox management per Dr Alexis blair- eeipd9JLZV ULWZD7ZE joint dysfunction status post acvttmerx4LOO 05/24 degenerative changes, L5 S1 facet joint inflam-as95Wlpa score 0.6 hip, 5.7 alnct34ECUGT-Z: 15 on 2ACE score: 6 on 11/11/18 Social History Social History Type Response Smoking Status 10 or more cigarettes (1/2 p ack or more)/day in last 30 days; Type: Cigarettes; Other: 1ppd-1/2ppd; Started at age: 24; entered on: 09/22/18 Sex
--- OUTSIDE RECORDS SUMMARY | 2022-04-27 19:46 | XMS_ITS | Continuity of Care Document ---
:1955 Author Organization [facility] Address Unavailable , Care Team Providers Name Role Phone Kelsie Oliver Primary Care Physician [place] [facility] [place](s): 10/05/21 - 11/04/21 [facility] Allergies, Adverse Reactions, Alerts Substance Reaction [...] 5 Refills, Maintenance, 09/17/21 16:39:00 EDT, Tablet, [facility], 160, cm, 09/15/21 4:30:00 EDT, Height, 74, kg, 09/13/21 20:36:00 EDT, Dry Weight Start Date: 09/17/21 Status: Orderedatorvastatin 10 mg oral tablet See Instructions, TAKE ONE TABLET BY MOUTH ONCE DAILY, # 90 tablet, 1 Refills, 07/24/21 14:35:00 EDT, [facility], 160, cm, 02/16/21 11:16:00 EST, Height, 64, kg, 01/19/21 11:44:00 EDT, Dry Weight Start Date: 07/24/21 Status: Orderedcyanocobalamin 1000 mcg oral tablet 1,000 mcg, 1, tablet, By Mouth, Daily, # 90 tablet, Refills 1, Tot. Refills 1, Maintenance, 09/18/2215:40:00 EDT, Route to Pharmacy Electronically, [facility], 160, cm, 09/15/21 4:30:00 EDT, Height, 74, kg, 09/13/21 20:36:00 EDT, Dry Weight Start Date: 09/17/21 Status: Ordereddiltiazem 180 mg/24 hours oral capsule, extended release 180 mg, 1, capsule, By Mouth, Daily, # 30 capsule, Refills 5, Tot. Refills 5, Maintenance, 09/17/21 16:39:00 EDT, Route to Pharmacy Electronically, [facility], 160, cm, 09/15/21 [...] Active Paroxysmal atrial flutter(Confirmed) Active 1neg stress ilgx6Qluhzht Oswestry Disability Index: 58% (26/45; severe disability ); updated [place] Back Pain Disability Scale score: 71 both on 07/20/20 3initial Oswestry Disability Index: 62% ( crippled ) on 06/30/18; initial [place] Back Pain Scale: 81 on goal < 130 smoker, AVm7Phrh score 0.6 hip, 5.7 other Social History Social History Type Response Smoking Status 5-9 cigarettes (between 1/4 to 1/2 pack)/day in last 30 days; Interested in cessation: No; Patient wants NRT during admission Yes entered on: 09/13/21 Sex Female
--- OUTSIDE RECORDS SUMMARY | 2022-04-27 19:46 | XMS_ITS | Continuity of Care Document ---
:1955 Author Organization [facility] Address Unavailable , Care Team Providers Name Role Phone Kelsie Oliver Primary Care Physician [place] [facility] [place]21 [facility] Allergies, Adverse Reactions, Alerts [...] tablet, Refills 1, Tot. Refills 1, Maintenance, 04/24/21 10:36:00 EST, Route to Pharmacy Electronically, [facility], 160, cm, 02/16/21 11:16:00 EST, Height, 64, kg, 01/19/21 11:44:00 EDT, Dry Weight Start Date: 04/24/21 Stop Date: 10/21/21 Status: OrderedAspirin 81, mg, By Mouth, Daily, 0, 0, 04/12/06 11:40:18, Print RADHA Number, [id number], Constant Indicator Start Date: 04/12/06 Status: Orderedatorvastatin 10 mg oral tablet See Instructions, TAKE ONE TABLET BY MOUTH ONCE DAILY, # 90 tablet, 0 Refills, [facility], 160, cm, 10/31/20 9:48:00 EDT, Height, 66, kg, 08/10/20 13:30:00 EDT, Dry Weight Start Date: 11/04/20 Status: OrderedbuPROPion 100 mg oral tablet 1 tablet = 100 mg, By Mouth, 2 times a day, # 180 tablet, 3 Refills, Maintenance, 02/22/21 8:29:00 EST, Tablet, [facility], Partial fill upon patient request if the prescription is for a schedule II opioid drug., 160, cm, 02/16/21 11:16:00 EST... Start Date: 02/22/21 Status: OrderedControlled Substance Agreement Controlled Substance Agreement, See Instructions, # 1 each, Refills 0, Tot. Refills 0, Maintenance, controlled substance agreement signed 10/16/18 Updated: 07/20/2020 pharmacy [facility] Geraldo dx: mechanical low back pain [...] 02/21/21 16:31:00 EST, Route to Pharmacy Electronically, [facility], Partial fill upon patientrequest if the prescription is for a schedule II... Start Date: 02/21/21 Status: Orderedlisinopril 40 mg oral tablet 1 tablet, By Mouth, Daily, # 90 tablet, 1 Refills, [facility], 160, cm, 02/16/21 11:16:00 EST, Height, 64, kg, 01/19/21 11:44:00 EDT, Dry Weight Start Date: 05/18/21 Status: OrderedLORazepam 0.5 mg oral tablet 1 tablet = 0.5 mg, By Mouth, 3 times a day, PRN for anxiety, # 90 tablet, 3 Refills, Maintenance, 02/21/21 17:30:00 EST, Tablet, [facility], Partial fill upon patient request if the prescription is for a schedule II opioid drug., 160, cm, 120... Start Date: 02/21/21 Status: Orderednortriptyline 25 mg oral capsule 25 mg, 1, capsule, By Mouth, Daily at bedtime, # 30 capsule, Refills 3, Tot. Refills 3, Maintenance,02/22/21 8:27:00 EST, Route to Pharmacy Electronically, [facility], Partial fill upon patient request if the prescription is for a schedule II... Start Date: 02/22/21 Status: Orderedsenna - oral liquid 10 mL, By Mouth, Daily at bedtime, # 60 mL, 0 Refills, Maintenance, 02/02/21 14:48:00 EST, Liquid, [facility], Partial fill upon patient [...] Active Vitamin D deficiency(Confirmed) Active 1neg stress qxnz4Mbn back pain DOI 04/08/200841106Uxzgwcz Oswestry Disability Index: 58% (26/45; severe disability ); updated [place] Back Pain Disability Scale score: 71 both on initial Oswestry Disability Index: 62% ( crippled ) on 06/30/18; initial [place] Back Pain Scale: 81 on goal < 130 smoker, FHx6 trigger point injections-neuro Dr HollowayKrplzn6ilot management per Dr Alexis [place]- sezdg6AOEW FEHOP8CQ joint dysfunction status post atdxcascu37JJO 05/24 degenerative changes, L5 S1 facet joint inflam-zo78Bmha score 0.6 hip, 5.7 gzock73LCLIT-X: 15 on 3ACE score: 6 on 11/11/18 Social History Social History Type Response Smoking Status Cigars or pipes but not tad y within last 30 days entered on: 07/29/20 Sex Female
--- OUTSIDE RECORDS SUMMARY | 2022-04-27 19:46 | XMS_ITS | Continuity of Care Document ---
:1955 Author Organization [facility] Adult Address Unavailable , Care Team Providers Name Role Phone Kelsie Oliver Primary Care Physician [place] [facility] [place] 02/09/21 [facility] Adult Encounter Diagnosis Abdominal bloating (Discharge Diagnosis) - 02/02/21 Nausea (Discharge Diagnosis) - 02/02/21 Attending Physician: Kendall Elena Allergies, Adverse Reactions, Alerts Substance Reaction Severity Status doxycycline rash Active tetracycline red blotches Persistent Moderate Active penicillins Active nonsteroidal anti-inflammatory agents [D]Wheezing Active Cymbalta Active penicillin rash Active gabapentin Active sulfa drugs Active Flexeril rash Active [...] 07/12/20 11:52:00 EDT, Route to Pharmacy Electronically, [facility], 160.2, cm, 06/30/20 13:45:00 EDT, Height Start Date: 07/12/20 Stop Date: 01/08/21 Status: OrderedamLODIPine 5 mg oral tablet 0 Refills, Maintenance, 02/02/21 15:20:00 EST, Partial fill upon patient request if the prescriptionis for a schedule II opioid drug. Start Date: 02/02/21 Status: OrderedAspirin 81, mg, By Mouth, Daily, 0, 0, 04/12/06 11:40:18, Print RADHA Number, [id number], Constant Indicator Start Date: 04/12/06 Status: Orderedatorvastatin 10 mg oral tablet See Instructions, TAKE ONE TABLET BY MOUTH ONCE DAILY, # 90 tablet, 0 Refills, [facility], 160, cm, 10/31/20 9:48:00 EDT, Height, 66, kg, 08/10/20 13:30:00 EDT, Dry Weight Start Date: 11/04/20 Status: OrderedBuSpar 10 mg oral tablet 7.5 mg, By Mouth, Daily, Refills 0, Maintenance, 12/31/20 14:09:00 EDT, Partial fill upon patient request if the prescription is for a schedule II opioid drug. Start Date: 12/31/20 Status: OrderedbusPIRone 7.5 mg oral tablet 0 Refills, Maintenance, 02/02/21 15:20:00 EST, Partial fill upon patient request if the prescriptionis for a schedule II opioid drug. Start Date: 02/02/21 Status: OrderedControlled Substance Agreement Controlled Substance Agreement, [...] 04/16/16 Status: Orderedgabapentin 100 mg oral capsule Refills 0, Maintenance, 02/02/21 15:20:00 EST, Partial fill upon patient request if the prescriptionis for a schedule II opioid drug. Start Date: 02/02/21 Status: Orderedlisinopril 40 mg oral tablet 1 tablet = 40 mg, By Mouth, Daily, 1/2 tab daily, # 30 tablet, 1 Refills, Maintenance, 07/12/20 11:52:00 EDT, Tablet, [facility], 160.2, cm, 06/30/20 13:45:00 EDT, Height Start Date: 07/12/20 Stop Date: 09/29/20 Status: OrderedLORazepam 0.5 mg oral tablet 0 Refills, Maintenance, 02/02/21 15:20:00 EST, Partial fill upon patient request if the prescriptionis for a schedule II opioid drug. Start Date: 02/02/21 Status: OrderedNortriptyline By Mouth, 0 Refills, Maintenance, 02/02/21 15:21:00 EST, Partial fill upon patient request if the prescription is for a schedule II opioid drug. Start Date: 02/02/21 Status: OrderedSenna By Mouth, 0 Refills, Maintenance, 09/15/20 14:02:00 EDT, Partial fill upon patient request if the prescription is for a schedule II opioid drug. Start Date: 09/15/20 Status: Orderedsenna - oral liquid 10 mL, [...] Active Vitamin D deficiency(Confirmed) Active 1neg stress csgn1Avf back pain DOI 04/08/200873322Xllyqag Oswestry Disability Index: 58% (26/45; severe disability ); updated [place] Back Pain Disability Scale score: 71 both on initial Oswestry Disability Index: 62% ( crippled ) on 06/30/18; initial [place] Back Pain Scale: 81 on goal < 130 smoker, FHx6 trigger point injections-neuro Dr HollowayLisins2lsqy management per Dr Alexis [place]- qodmy3XVHP UJDYG5WR joint dysfunction status post dsidwyymg15RWT 05/24 degenerative changes, L5 S1 facet joint inflam-ov54Gcyu score 0.6 hip, 5.7 tvysh65IYVIL-T: 15 on 3ACE score: 6 on 11/11/18 Diagnosis Diagnosis Type Effective Dates Health Status Clinical In formant Service Nausea Discharge 02/02/21 Diagnosis Abdominal Discharge 02/02/21 bloating Diagnosis Vital Signs Most recent to oldest [Reference Range]: 1 Height 160 cm (02/02/21 3:15 PM) Weight 63.63 kg (02/02/21 3:15 PM) Body Mass Index [18.5-24.99] 24.86 (02/02/21 3:15 PM) Weight Obtained Via Patient/family stated (02/02/21 3:15 PM) Social History Social History Type Response Smoking Status Cigars or pipes but not tad y within last 30 days entered on: 07/29/20 Sex Female
--- OUTSIDE RECORDS SUMMARY | 2022-04-27 19:46 | XMS_ITS | Continuity of Care Document ---
:1955 Author Organization [facility] Address [address] [place] [address]- Care Team Providers Name Role Phone Kelsie Oliver Primary Care Physician [place] [facility] [place] 10[place]12/19 - 11/11/19 [facility] [address] [place] [address]- [facility] Allergies, Adverse Reactions, Alerts Substance Reaction Severity Status doxycycline rash Active tetracycline red blotches Persistent Moderate Active penicillins Active Flexeril rash Active nonsteroidal anti-inflammatory agents [D]Wheezing Active penicillin [...] 10/12/19 9:33:00 EDT, Route to Pharmacy Electronically, [facility], 160.2, cm, 10/02/19 13:49:00 EDT, Height Start Date: 10/12/19 Stop Date: 04/09/20 Status: OrderedAspirin 81, mg, By Mouth, Daily, 0, 0, 04/12/06 11:40:18, Print RADHA Number, [id number], Constant Indicator Start Date: 04/12/06 Status: OrderedColace [...] 1 Refills, Maintenance, 10/12/19 9:33:00 EDT, Tablet, [facility], 160.2, cm, 10/02/19 13:49:00 EDT, Height Start Date: 10/12/19 Stop Date: 04/09/20 Status: Orderedlisinopril 40 mg oral tablet 1 tablet = 40 mg, By Mouth, Daily, # 30 tablet, 5 Refills, Maintenance, 10/12/19 9:33:00 EDT, Tablet, [facility], 160.2, cm, 10/02/19 13:49:00 [...] Replace Required Details, Route to Pharmacy Electronically, [facility], 160.5, cm, 07/07/19 9... [...] pain., # 112 tablet, 0 Refills, Maintenance, 11/11/19 15:57:00 EDT, [facility], Partial fill upon patient request., 11/16/19, 160.2, cm, 10/02/19 13:49:00 ED... Start Date: 11/11/19 Status: OrderedSenna By Mouth, Daily, 0 Refills, Maintenance, 11/11/18 11:53:35 EDT Start Date: 11/11/18 Status: Orderedtopiramate 100 mg oral tablet 1 tablet = 100 mg, By Mouth, Daily at bedtime, # 28 tablet, 5 Refills, Maintenance, 08/25/19 8:09:00EDT, [facility], 160.5, cm, 07/07/19 9:17:00 EDT, Height Start Date: 08/25/19 Status: OrderedValium 5 mg oral tablet 5 mg, 1, tablet, By Mouth, 3 times a day, PRN, may take 4th tablet for severe spasm, # 112 tablet, Refills 2, Tot. Refills 2, Maintenance, muscle spasm, 09/22/19 12:26:00 EDT, Route to Pharmacy Electronically, [facility], 160.5, cm, 07/07/19 9... Start [...] Active Vitamin D deficiency(Confirmed) Active 1neg stress kzst7Jwq back pain DOI 04/08/200841349umbhtoz Oswestry Disability Index: 62% ( crippled ) on 06/30/18; initial [place] Back Pain Scale: 81 on goal < 130 smoker, BEj2aluauvj point injections-neuro Dr HollowayQyxfmw7mhrm management per Dr Alexis knob lick- ytaph5MULS AUMFL8UM joint dysfunction status post qcztcqsxy8CHB 05/24 degenerative changes, L5 S1 facet joint inflam-rm52Pyyw score 0.6 hip, 5.7 vspuk71RHBKI-R: 15 on 2ACE score: 6 on 11/11/18 Social History Social History Type Response Smoking Status 10 or more cigarettes (1/2 p ack or more)/day in last 30 days; Type: Cigarettes; Other: 1ppd-1/2ppd; Started at age: 24; entered on: 09/22/18 Sex
--- OUTSIDE RECORDS SUMMARY | 2022-04-27 19:46 | XMS_ITS | Continuity of Care Document ---
:1955 Author Organization [facility] Adult Address [address] [place] [address]- Care Team Providers Name Role Phone Kelsie Oliver Primary Care Physician [place] [facility] [place] 11[place]21 [facility] [address] [place] [address]- Allergies, Adverse Reactions, Alerts Substance Reaction Severity Status doxycycline rash Active tetracycline red blotches Persistent Moderate Active penicillin rash Active nonsteroidal anti-inflammatory agents [D]Wheezing Active Cymbalta Active sulfa drugs Active Flexeril rash Active [...] Maintenance, 09/18/2215:40:00 EDT, Route to Pharmacy Electronically, [facility], 160, cm, 09/15/21 4:30:00 EDT, Height, 74, kg, 09/13/21 20:36:00 EDT, Dry Weight Start Date: 09/17/21 Status: Ordereddiltiazem 180 mg/24 hours oral capsule, extended release 180 mg, 1, capsule, By Mouth, Daily, # 30 capsule, Refills 5, Tot. Refills 5, Maintenance, 09/17/21 16:39:00 EDT, Route to Pharmacy Electronically, [facility], 160, cm, 09/15/21 4:30:00 EDT, [...] Active Paroxysmal atrial flutter(Confirmed) Active 1neg stress khnr4Cpecrdq Oswestry Disability Index: 58% (26/45; severe disability ); updated [place] Back Pain Disability Scale score: 71 both on 07/20/20 3initial Oswestry Disability Index: 62% ( crippled ) on 06/30/18; initial [place] Back Pain Scale: 81 on goal < 130 smoker, MFe5Zhfb score 0.6 hip, 5.7 other Social History Social History Type Response Smoking Status 5-9 cigarettes (between 1/4 to 1/2 pack)/day in last 30 days; Interested in cessation: No; Patient wants NRT during admission Yes entered on: 09/13/21 Sex Female
--- OUTSIDE RECORDS SUMMARY | 2022-04-27 19:46 | XMS_ITS | Continuity of Care Document ---
:1955 Author Organization [facility] Adult Address [address] [place] [address]- Care Team Providers Name Role Phone Kelsie Oliver Primary Care Physician [place] [facility] [place] [facility] [address] [place] [address]- [facility] Attending Physician: Admtr, Brenton Allergies, Adverse Reactions, Alerts Substance Reaction Severity Status doxycycline rash Active tetracycline red blotches Persistent Moderate Active penicillin rash Active penicillins Active sulfa drugs Active nonsteroidal anti-inflammatory agents [D]Wheezing Active Flexeril rash Active Immunizations Given and [...] 10/12/19 9:33:00 EDT, Route to Pharmacy Electronically, [facility], 160.2, cm, 10/02/19 13:49:00 EDT, Height Start Date: 10/12/19 Stop Date: 04/09/20 Status: OrderedAspirin 81, mg, By Mouth, Daily, 0, 0, 04/12/06 11:40:18, Print RADHA Number, [id number], Constant Indicator Start Date: 04/12/06 Status: OrderedColace Clear = 50 mg, By Mouth, 2 times a day, 0 Refills, Maintenance, 04/16/16 11:25:20 Start Date: 04/16/16 Status: OrderedControlled Substance Agreement Controlled Substance Agreement, See Instructions, # 1 each, Refills 0, Tot. Refills 0, Maintenance, controlled substance agreement signed 10/16/18, pharmacy [facility], dx: mechanical low back pain, [...] 1 Refills, Maintenance, 10/12/19 9:33:00 EDT, Tablet, [facility], 160.2, cm, 10/02/19 13:49:00 EDT, Height Start Date: 10/12/19 Stop Date: 04/09/20 Status: Orderedlisinopril 40 mg oral tablet 1 tablet = 40 mg, By Mouth, Daily, # 30 tablet, 5 Refills, Maintenance, 10/12/19 9:33:00 EDT, Tablet, [facility], 160.2, cm, 10/02/19 [...] Replace Required Details, Route to Pharmacy Electronically, [facility], 160.5, cm, 07/07/19 9... [...] tablet, 0 Refills, Maintenance, 10/20/19 12:30:00 EDT, [facility], Partial fill upon patient request., 160.2, cm, 10/02/19 13:49:00 EDT, Height Start Date: 10/20/19 Status: OrderedSenna By Mouth, Daily, 0 Refills, Maintenance, 11/11/18 11:53:35 EDT Start Date: 11/11/18 Status: Orderedtopiramate 100 mg oral tablet 1 tablet = 100 mg, By Mouth, Daily at bedtime, # 28 tablet, 5 Refills, Maintenance, 08/25/19 8:09:00EDT, [facility], 160.5, cm, 07/07/19 9:17:00 EDT, Height Start Date: 08/25/19 Status: OrderedValium 5 mg oral tablet 5 mg, 1, tablet, By Mouth, 3 times a day, PRN, may take 4th tablet for severe spasm, # 112 tablet, Refills 2, Tot. Refills 2, Maintenance, muscle spasm, 09/22/19 12:26:00 EDT, Route to Pharmacy Electronically, [facility], 160.5, cm, 07/07/19 9... Start [...] Active Vitamin D deficiency(Confirmed) Active 1neg stress crdj3Vln back pain DOI 04/08/200842990ujqfhim Oswestry Disability Index: 62% ( crippled ) on 06/30/18; initial [place] Back Pain Scale: 81 on goal < 130 smoker, CKp6drtqydh point injections-neuro Dr HollowayVajpej3cuff management per Dr Alexis dubois- xxcri6LLUP KHLFV1QA joint dysfunction status post hoybtwnzy1RRQ 05/24 degenerative changes, L5 S1 facet joint inflam-xb09Iemk score 0.6 hip, 5.7 ltnru68ELRPJ-K: 15 on 2ACE score: 6 on 11/11/18 [...]
--- OUTSIDE RECORDS SUMMARY | 2022-04-27 19:46 | XMS_ITS | Continuity of Care Document ---
:1955 Author Organization [facility] Address [address] [place] [address]- Care Team Providers Name Role Phone Kelsie Oliver Primary Care Physician Encounter [facility] [place] Date(s): 07/14/20 - 07/15/[address] [address]- Encounter Diagnosis Hyponatremia (Final) - 07/13/20 Failure to thrive (0-17) (Final) - 07/13/20 Discharge Disposition: A-D/C Home Attending Physician: Silvio Babin MD Admitting Physician: Ryan Foy MD Referring Physician: Not on Staff, Referring [...] 11:52:00 EDT, Route to Pharmacy Electronically, [facility], 160.2, cm, 06/30/20 13:45:00 EDT, Height Start Date: 07/12/20 Stop Date: 01/08/21 Status: OrderedAspirin 81, mg, By Mouth, Daily, 0, 0, 04/12/06 11:40:18, Print RADHA Number, [id number], Constant Indicator Start Date: 04/12/06 Status: OrderedClearLax oral powder for reconstitution = 17 Gm, By Mouth, Daily, PRN Constipation, for 14 days, # 12 each, 0 Refills, Acute 07/29/20 12:02:00 EDT, 07/15/20 12:02:00 EDT, [facility], Partial fill upon patient request if the prescription is for a schedule II opioid drug., 17 Gm... Start Date: 07/15/20 Stop Date: 07/29/20 Status: OrderedColace Clear 50 mg oral capsule 1 capsule = 50 mg, By Mouth, 2 times a day, # 60 capsule, 0 Refills, Maintenance, 07/15/20 12:00:00 EDT, Capsule, [facility], Partial fill upon patient request if the prescription is for a schedule II opioid drug., 160.2, cm, 06/30/20 13... Start Date: 07/15/20 Status: OrderedControlled Substance Agreement Controlled Substance Agreement, [...] tablet, 1 Refills, Maintenance, 06/29/20 8:06:00 EDT, [facility], 160.2, cm, 05/30/20 11:21:00 EDT, [...] 1 Refills, Maintenance, 04/09/20 9:33:00 EST, Tablet, [facility], 160.2, cm, 03/24/20 12:29:00 EST, Height Start Date: 04/09/20 Stop Date: 10/06/20 Status: Orderedlisinopril 40 mg oral tablet 1 tablet = 40 mg, By Mouth, Daily, # 90 tablet, 1 Refills, Maintenance, 07/12/20 11:52:00 EDT, Tablet, [facility], 160.2, cm, 06/30/20 13:45:00 EDT, Height Start Date: 07/12/20 Status: OrderedMOM Liquid By Mouth, Daily at bedtime, 0 Refills, Maintenance, 12/10/19 9:14:00 EDT Start Date: 12/10/19 Status: OrderedMorPHINE Inj 1 mg, Injection, IV Push Slowly, Once, PRN for Pain , Severe, Routine, 07/14/20 14:11:00 EDT Start Date: 07/14/20 Stop Date: 07/15/20 Status: CompletedNarcan 4 mg/0.1 mL nasal spray = 4 mg, Naris, Left, Once, may repeat every 2 to 3 minutes until patient responds, # 2 each, 0 Refills, Soft Stop, 10/16/18 13:09:25 EDT Start Date: 10/16/18 Status: OrderedSenna By Mouth, Daily, 0 Refills, Maintenance, 11/11/18 11:53:35 EDT Start Date: 11/11/18 Status: OrderedValium 5 mg oral tablet 5 mg, 1, tablet, By Mouth, 3 times a day, PRN, may take 4th tablet for severe spasm, # 112 tablet, Refills 2, Tot. Refills 2, Maintenance, muscle spasm, 05/31/20 7:58:00 EDT, Route to Pharmacy Electronically, [facility], 160.2, cm, 05/30/20 11... Start [...] Active Vitamin D deficiency(Confirmed) Active 1neg stress wijg4Ddq back pain DOI 04/08/200884018yokvtpl Oswestry Disability Index: 62% ( crippled ) on 06/30/18; initial [place] Back Pain Scale: 81 on goal < 130 smoker, MBi5tzzhirz point injections-neuro Dr HollowayCbkpjb9gxqv management per Dr Alexis newark- eosmw8ZALO CPKAK8NQ joint dysfunction status post ehvcukvqe6ARW 05/24 degenerative changes, L5 S1 facet joint inflam-tq52Sglv score 0.6 hip, 5.7 eotok98FHPGF-N: 15 on 2ACE score: 6 on 11/11/18 Results Radiology Reports Exam Date Time Procedure Performing Provider Status 07/13/20 8:25 PM Chest Portable Angie Stahl; Kayla (Verified) Notes:(Chest Portable) Reason For Exam: Shortness of BreathRESULT: Chest Portable Chest Portable Reason: Shortness of Breath; Clinical Question(s): CHF COMPARISON: X-ray from 09/03/2013 FINDINGS: LINES AND TUBES: None. LUNGS AND PLEURA: Clear lungs. Normal pulmonary vascularity. No pleural effusion. No pneumothorax. HEART, MEDIASTINUM AND KEYANNA: Heart is normal in size. Normal upper mediastinal and hilar contour. BONES AND SOFT TISSUES: No acute abnormality. IMPRESSION: No acute abnormality. WSN: [id number] Ordering Physician: Samantha Park Dictated By: Kishor Foster MD Dictated Date/Time: 07/13/20 8:32 pm Reviewed By: Kishor Foster MD Signed By: Kishor Foster MD Signed Date/Time: 07/13/20 8:32 pm Transcribed By: SHAHNAZ Transcribed Date/Time: 07/13/20 8:32 pm Vital Signs Most recent to oldest 1 2 3 [Reference Range]: Weight 64.4 kg (07/14/20 2:58 AM) Oxygen Saturation [94-100 %] 97 % 100 % 100 % (07/15/20 11:23 AM) (07/15/20 7:11 AM) (07/15/20 4: 11 AM) Pulse Rate [55-90 bpm] 68 bpm 70 bpm 66 bpm (07/15/20 11:23 AM) (07/15/20 7:11 AM) (07/15/20 4: 11 AM) Blood Pressure [90-138/55-84 113/58 mm Hg 122/62 mm Hg 126 /61 mm Hg mm Hg] (07/15/20 11:23 AM) (07/15/20 7:11 AM) (07/15/20 4: 11 AM) Respiratory Rate [16-30 20 br/min 18 br/min 20 br/mi n br/min] (07/15/20 11:23 AM) (07/15/20 7:14 AM) (07/15/20 7: 11 AM) Temperature [96.8-100.4 DegF] 97.8 DegF 97.7 DegF 98 .0 DegF (07/15/20 11:23 AM) (07/15/20 7:11 AM) (07/15/20 4: 11 AM) Mode of Delivery (Oxygen) Room air Room air Room a ir (07/15/20 11:23 AM) (07/15/20 7:11 AM) (07/15/20 4: 11 AM) Blood pressure sites Arm, left Arm, left Arm, right (07/15/20 11:23 AM) (07/15/20 7:11 AM) (07/15/20 4: 11 AM) Temperature Route Oral Oral Oral (07/15/20 11:23 AM) (07/15/20 7:11 AM) (07/15/20 4: 11 AM) Weight Obtained Via Bed scale (07/14/20 2:58 AM) Social History Social History Type Response Smoking Status 10 or more cigarettes (1/2 p ack or more)/day in last 30 days; Type: Cigarettes; Other: 1ppd-1/2ppd; Started at age: 24; entered on: 09/22/18 Sex
--- OUTSIDE RECORDS SUMMARY | 2022-04-27 19:46 | XMS_ITS | Continuity of Care Document ---
:1955 Author Organization [facility] Address [address] [place] [address]- Care Team Providers Name Role Phone Kelsie Oliver Primary Care Physician [place] [facility] [place]22 [facility] [address] [place] [address]- [place] Allergies, Adverse Reactions, Alerts Substance Reaction [...] (Td)1 05/16/05 Given 1Admin Note: [facility] Medications Acetaminophen 0 Refills, Maintenance, 01/31/22 14:33:00 [...] 1 Refills, Maintenance, 09/17/21 16:40:00 EDT, Patch, [facility], 24 hr Topically Daily, 160, cm, 09/15/21 4:30:00 EDT, Height, 74, kg, 09/13/21 20:36:00 EDT, Dry Weight Start Date: 09/17/21 Status: OrderedSenna 8.8 mg/5 mL oral syrup 10 mL, By Mouth, Daily at bedtime, # 900 mL, 3 Refills, Maintenance, 01/18/22 13:14:00 EDT, [facility], 10 mL By Mouth Daily [...] adenocarcinoma of upper lobe of left lung ([id number]) Subclavian artery Confirmed Active stenosis, left Tubular adenoma of Confirmed Active colon 1neg stress hkpf5Knjidne Oswestry Disability Index: 58% (26/45; severe disability ); updated [place] Back Pain Disability Scale score: 71 both on 07/20/20 3initial Oswestry Disability Index: 62% ( crippled ) on 06/30/18; initial [place] Back Pain Scale: 81 on goal < 130 smoker, IAd7Qvog score 0.6 hip, 5.7 other Social History [...] Associate Professional Member Role: PCP Address: Address: [address] [place] [address]- Name: Ryan Blackmon DO Position: [facility] Physician -Physician Practices Member Role: Lifetime Consulting Physician Address: Address: [address] [place] [address]- Name: Karen Stearns RN Position: [facility] RN Member Role: Primary Care Nurse Name: Vandana Hu RN Position: [facility] RN Member Role: Primary Care Nurse Care Team Related PersonsName: SILVER ROSSI Name: LASHAY MORLEY Address: [address] [address]
--- OUTSIDE RECORDS SUMMARY | 2022-04-27 19:46 | XMS_ITS | Continuity of Care Document ---
:1955 Author Organization [facility] Address [address] [place] [address], [address] [place] [address]- Care Team Providers Name Role Phone Kelsie Oliver Primary Care Physician Encounter [facility] [place] Date(s): 12/22/21 - 01/21/22 [facility] [address] [place] [address], [address] [place], [place] [address] Allergies, Adverse Reactions, Alerts Substance Reaction [...] 1 Refills, Maintenance, 09/17/21 16:40:00 EDT, Patch, [facility], 24 hr Topically Daily, 160, cm, 09/15/21 4:30:00 EDT, Height, 74, kg, 09/13/21 20:36:00 EDT, Dry Weight Start Date: 09/17/21 Status: OrderedPEG-3350 with Electrolytes (Eqv-GoLYTELY) oral powder for reconstitution See Instructions, 1 glass every 15-30 minutes until finished, # 4,000 mL, 0 Refills, Maintenance, 01/08/22 13:55:00 EDT, [facility], Partial fill upon patient request if the prescription is fora schedule II opioid drug., 1 glass every 15-30 m... Start Date: 01/08/22 Status: OrderedSenna 8.8 mg/5 mL oral syrup 10 mL, By Mouth, Daily at bedtime, # 900 mL, 3 Refills, Maintenance, 01/18/22 13:14:00 EDT, [facility], 10 mL By [...] artery Confirmed Active stenosis, left 1neg stress ephy9Tbwsubl Oswestry Disability Index: 58% (26/45; severe disability ); updated [place] Back Pain Disability Scale score: 71 both on 07/20/20 3initial Oswestry Disability Index: 62% ( crippled ) on 06/30/18; initial [place] Back Pain Scale: 81 on goal < 130 smoker, YOf1Idgk score 0.6 hip, 5.7 other Social History [...] information PersonnelName: Kelsie Oliver Address: Address: [address] [place], [place] [address]
--- OUTSIDE RECORDS SUMMARY | 2022-04-27 19:46 | XMS_ITS | Continuity of Care Document ---
:1955 Author Organization [facility] Address Unavailable , Care Team Providers Name Role Phone Kelsie Oliver Primary Care Physician [id number]07[facility]21 - 09/14/21 [facility] Encounter Diagnosis Shoulder pain, left (Discharge Diagnosis) - 09/07/21 Intertrigo (Discharge Diagnosis) - 09/07/21 Myofascial pain syndrome (Discharge Diagnosis) - 09/07/21 Nasal dryness (Discharge Diagnosis) - 09/07/21 Attending Physician: Not on Staff, Attending MD [...] 0, 0, 04/12/06 11:40:18, Print RADHA Number, [id number], Constant Indicator Start Date: 04/12/06 Status: Orderedatorvastatin 10 mg oral tablet See Instructions, TAKE ONE TABLET BY MOUTH ONCE DAILY, # 90 tablet, 1 Refills, 07/24/21 14:35:00 EDT, [facility], 160, cm, 02/16/21 11:16:00 EST, Height, 64, kg, 01/19/21 11:44:00 EDT, Dry Weight Start Date: 07/24/21 Status: OrderedDocusate 0 Refills, Maintenance, 09/15/20 14:02:00 [...] Mouth, Daily, # 90 tablet, 1 Refills, [facility], 160, cm, 02/16/21 11:16:00 [...] II opioid drug. Start Date: 09/13/21 Status: Orderednystatin topical [id number] u/gm powder 1 application, Topically, 2 times a day, # 30 Gm, 0 Refills, Acute 09/21/21 15:54:00 EDT, 09/07/21 15:54:00 EDT, Powder, [facility], Partial fill upon patient request if the prescription is fora schedule II opioid drug., 1 application Topical... Start Date: 09/07/21 Stop Date: 7/7/22 Status: Orderedsenna - oral liquid 10 mL, [...] Active Vitamin D deficiency(Confirmed) Active 1neg stress xpoh8Yeu back pain DOI 04/08/200811260Tucblwp Oswestry Disability Index: 58% (26/45; severe disability ); updated [place] Back Pain Disability Scale score: 71 both on initial Oswestry Disability Index: 62% ( crippled ) on 06/30/18; initial [place] Back Pain Scale: 81 on goal < 130 smoker, FHx6 trigger point injections-neuro Dr HollowayBsjfak2kbal management per Dr Vanesa worthy [place]- pfiqi8ACLT SVGLG7ZG joint dysfunction status post zfuhokpbe21OCI 05/24 degenerative changes, L5 S1 facet joint inflam-us63Ckwa score 0.6 hip, 5.7 fnqtf35XVOMC-R: 15 on 3ACE score: 6 on 11/11/18 Diagnosis Diagnosis Type Effective Dates Health Clinical Infor mant Status Service Shoulder pain, Discharge 09/07/21 left Diagnosis Intertrigo Discharge 09/07/21 Diagnosis Myofascial pain Discharge 09/07/21 syndrome Diagnosis Nasal dryness Discharge 09/07/21 Diagnosis Vital Signs Most recent to oldest [Reference Range]: 1 Height 160 cm (09/07/21 3:08 PM) Weight 73.5 kg (09/07/21 3:08 PM) Oxygen Saturation [94-100 %] 99 % (09/07/21 3:08 PM) Pulse Rate [55-90 bpm] 90 bpm (09/07/21 3:08 PM) Body Mass Index [18.5-24.99] 28.71 *H* (09/07/21 3:08 PM) Blood Pressure [90-138/55-84 mm Hg] 110/60 mm Hg (09/07/21 3:08 PM) Blood pressure sites Arm, left (09/07/21 3:08 PM) Weight Obtained Via Standing scale (09/07/21 3:08 PM) Social History Social History Type Response Smoking Status 5-9 cigarettes (between 1/4 to 1/2 pack)/day in last 30 days; Interested in cessation: No; Patient wants NRT during admission Yes entered on: 09/13/21 Sex Female
--- OUTSIDE RECORDS SUMMARY | 2022-04-27 19:46 | XMS_ITS | Continuity of Care Document ---
:1955 Author Organization [facility] Address Unavailable , Care Team Providers Name Role Phone Kelsie Oliver Primary Care Physician En[place] [facility] [place] Date(s): 12/26/20 - 01/02/21 [facility] Attending Physician: Not on Staff, [...] 11:52:00 EDT, Route to Pharmacy Electronically, [facility], 160.2, cm, 06/30/20 13:45:00 EDT, Height Start Date: 07/12/20 Stop Date: 01/08/21 Status: OrderedAspirin 81, mg, By Mouth, Daily, 0, 0, 04/12/06 11:40:18, Print RADHA Number, [id number], Constant Indicator Start Date: 04/12/06 Status: Orderedatorvastatin 10 mg oral tablet See Instructions, TAKE ONE TABLET BY MOUTH ONCE DAILY, # 90 tablet, 0 Refills, [facility], 160, cm, 10/31/20 [...] substance agreement signed 10/16/18 Updated: 07/20/2020 pharmacy [facility] Geraldo dx: mechanical low back pain [...] Active Vitamin D deficiency(Confirmed) Active 1neg stress dykk4Ohr back pain DOI 04/08/200853316Sbuwzxv Oswestry Disability Index: 58% (26/45; severe disability ); updated [place] Back Pain Disability Scale score: 71 both on initial Oswestry Disability Index: 62% ( crippled ) on 06/30/18; initial [place] Back Pain Scale: 81 on goal < 130 smoker, FHx6 trigger point injections-neuro Dr HollowayUoqtov8vmli management per Dr Alexis [place]- rskkw5LJPS QMQAF9EB joint dysfunction status post haiorzxnl68SXR 05/24 degenerative changes, L5 S1 facet joint inflam-bk42Ylrq score 0.6 hip, 5.7 oabia67QREJW-O: 15 on 3ACE score: 6 on 11/11/18 Vital Signs Most recent to oldest [Reference Range]: 1 Height 161 cm (12/26/20 11:03 AM) Weight 64.4 kg (12/26/20 11:03 AM) Oxygen Saturation [94-100 %] 97 % (12/26/20 11:03 AM) Pulse Rate [55-90 bpm] 112 bpm *H* (12/26/20 11:03 AM) Body Mass Index [18.5-24.99] 24.84 (12/26/20 11:03 AM) Blood Pressure [90-138/55-84 mm Hg] 108/76 mm Hg (12/26/20 11:03 AM) Blood pressure sites Arm, left (12/26/20 11:03 AM) Weight Obtained Via Standing scale (12/26/20 11:03 AM) Social History Social History Type Response Smoking Status Cigars or pipes but not tad y within last 30 days entered on: 07/29/20 Sex Female
--- OUTSIDE RECORDS SUMMARY | 2022-04-27 19:46 | XMS_ITS | Continuity of Care Document ---
:1955 Author Organization [facility] Adult Address [address] [place] [address]- Care Team Providers Name Role Phone Kelsie Oliver Primary Care Physician [place] [facility] [place] 10/13/21 - 11/12/21 [facility] [address] [place] [address]- Allergies, Adverse Reactions, Alerts Substance Reaction Severity [...] Maintenance, 09/18/2215:40:00 EDT, Route to Pharmacy Electronically, [facility], 160, cm, 09/15/21 4:30:00 EDT, Height, 74, kg, 09/13/21 20:36:00 EDT, Dry Weight Start Date: 09/17/21 Status: Ordereddiltiazem 180 mg/24 hours oral capsule, extended release 180 mg, 1, capsule, By Mouth, Daily, # 30 capsule, Refills 5, Tot. Refills 5, Maintenance, 09/17/21 16:39:00 EDT, Route to Pharmacy Electronically, [facility], 160, cm, 09/15/21 4:30:00 EDT, [...] Active Paroxysmal atrial flutter(Confirmed) Active 1neg stress ioos6Fvobhsn Oswestry Disability Index: 58% (26/45; severe disability ); updated [place] Back Pain Disability Scale score: 71 both on 07/20/20 3initial Oswestry Disability Index: 62% ( crippled ) on 06/30/18; initial [place] Back Pain Scale: 81 on goal < 130 smoker, ZVd9Grwb score 0.6 hip, 5.7 other Social History Social History Type Response Smoking Status 5-9 cigarettes (between 1/4 to 1/2 pack)/day in last 30 days; Interested in cessation: No; Patient wants NRT during admission Yes entered on: 09/13/21 Sex Female Care Team PersonnelName: Kelsie Oliver Address: [address] [place], [place] [address]
--- OUTSIDE RECORDS SUMMARY | 2022-04-27 19:46 | XMS_ITS | Continuity of Care Document ---
:1955 Author Organization [facility] Address [address] [place] [address]- Care Team Providers Name Role Phone Kelsie Oliver Primary Care Physician [place] [facility] [place] 03/24/20 - 04/23/20 [facility] [address] [place] [address]- Attending Physician: Brenton Cabrera Admitting Physician: Admtr, Brenton Referring Physician: Admtr, Ar8 Allergies, Adverse Reactions, Alerts Substance Reaction Severity Status doxycycline rash Active tetracycline red blotches Persistent Moderate Active nonsteroidal anti-inflammatory agents [D]Wheezing Active Flexeril rash Active penicillin rash Active penicillins Active sulfa drugs Active Immunizations Given and [...] 04/09/20 9:33:00 EST, Route to Pharmacy Electronically, [facility], 160.2, cm, 03/24/20 12:29:00 EST, Height Start Date: 04/09/20 Stop Date: 07/08/20 Status: OrderedAspirin 81, mg, By Mouth, Daily, 0, 0, 04/12/06 11:40:18, Print RADHA Number, [id number], Constant Indicator Start Date: 04/12/06 Status: OrderedColace [...] 0 Refills, Maintenance, 04/01/20 13:38:00 EST, Tablet, [facility], [...] tablet, 0 Refills, Maintenance, 04/20/20 11:07:00 EST, [facility], Partial fill upon patient request. [...] 03/10/20 8:59:00 EST, Route to Pharmacy Electronically, [facility], 160.2, cm, 02/18/20 10... Start [...] Active Vitamin D deficiency(Confirmed) Active 1neg stress glgt9Bsa back pain DOI 04/08/200895655fgfbpgq Oswestry Disability Index: 62% ( crippled ) on 06/30/18; initial [place] Back Pain Scale: 81 on goal < 130 smoker, HJp8whtnpwa point injections-neuro Dr HollowayNgfngb2eduw management per Dr Alexis [place]- azswj8ONTY PNEWB6NS joint dysfunction status post zcjzyymyu3CWG 05/24 degenerative changes, L5 S1 facet joint inflam-dk02Mzur score 0.6 hip, 5.7 vmphv02AKEVH-T: 15 on 2ACE score: 6 on 11/11/18 Social History Social History Type Response Smoking Status 10 or more cigarettes (1/2 p ack or more)/day in last 30 days; Type: Cigarettes; Other: 1ppd-1/2ppd; Started at age: 24; entered on: 09/22/18 Sex
--- OUTSIDE RECORDS SUMMARY | 2022-04-27 19:46 | XMS_ITS | Continuity of Care Document ---
:1955 Author Organization [facility] Address [address] [place] [address]- Care Team Providers Name Role Phone Kelsie Oliver Primary Care Physician Encounter [facility] Date(s): 12/31/20 - 12/31/[address] [address]- Discharge Disposition: A-D/C Home Attending Physician: Neno Gagnon MD Admitting Physician: Neno Gagnon MD Referring Physician: Not on Staff, Referring [...] 11:52:00 EDT, Route to Pharmacy Electronically, [facility], 160.2, cm, 06/30/20 13:45:00 EDT, Height Start Date: 07/12/20 Stop Date: 01/08/21 Status: OrderedAspirin 81, mg, By Mouth, Daily, 0, 0, 04/12/06 11:40:18, Print RADHA Number, [id number], Constant Indicator Start Date: 04/12/06 Status: Orderedatorvastatin 10 mg oral tablet See Instructions, TAKE ONE TABLET BY MOUTH ONCE DAILY, # 90 tablet, 0 Refills, [facility], 160, cm, 10/31/20 [...] 07/12/20 11:52:00 EDT, Tablet, [facility], 160.2, cm, 06/30/20 [...] Active Vitamin D deficiency(Confirmed) Active 1neg stress xptt1Zsp back pain DOI 04/08/200817959Fmctatx Oswestry Disability Index: 58% (26/45; severe disability ); updated [place] Back Pain Disability Scale score: 71 both on initial Oswestry Disability Index: 62% ( crippled ) on 06/30/18; initial [place] Back Pain Scale: 81 on goal < 130 smoker, FHx6 trigger point injections-neuro Dr HollowayIfdato6luhh management per Dr Alexis hibbs- zfktp1JMJS XNCSA3CR joint dysfunction status post nuuhegwep91CJB 05/24 degenerative changes, L5 S1 facet joint inflam-qr87Xryk score 0.6 hip, 5.7 axexp78GOBGG-V: 15 on 3ACE score: 6 on 11/11/18 Vital Signs Most recent to oldest [Reference Range]: 1 2 Height 163 cm 163 cm (12/31/20 4:45 PM) (12/31/20 2:04 PM) Weight 68 kg 68 kg (12/31/20 4:45 PM) (12/31/20 2:04 PM) Oxygen Saturation [94-100 %] 97 % 99 % (12/31/20 4:45 PM) (12/31/20 2:04 PM) Pulse Rate [55-90 bpm] 75 bpm 83 bpm (12/31/20 4:45 PM) (12/31/20 2:04 PM) Body Mass Index [18.5-24.99] 25.59 *H* (12/31/20 4:45 PM) Blood Pressure [90-138/55-84 mm Hg] 113/54 mm Hg 127/ 65 mm Hg (12/31/20 4:45 PM) (12/31/20 2:04 PM) Respiratory Rate [16-30 br/min] 16 br/min 17 br/mi n (12/31/20 4:45 PM) (12/31/20 2:04 PM) Temperature [96.8-100.4 DegF] 98.1 DegF (12/31/20 2:04 PM) Mode of Delivery (Oxygen) Room air Room air (12/31/20 4:45 PM) (12/31/20 2:04 PM) Temperature Route Oral (12/31/20 2:04 PM) Dry Weight 68 kg 68 kg (12/31/20 4:45 PM) (12/31/20 2:04 PM) Social History Social History Type Response Smoking Status Cigars or pipes but not tad y within last 30 days entered on: 07/29/20 Sex Female
--- OUTSIDE RECORDS SUMMARY | 2022-04-27 19:46 | XMS_ITS | Continuity of Care Document ---
:1955 Author Organization [facility] Address [address] [place] [address]- Care Team Providers Name Role Phone Kelsie Oliver Primary Care Physician [place] [facility] [place] 02/16/20 - 03/17/20 [facility] [address] [place] [address]- Allergies, Adverse Reactions, Alerts Substance Reaction Severity [...] 10/12/19 9:33:00 EDT, Route to Pharmacy Electronically, [facility], 160.2, cm, 10/02/19 13:49:00 EDT, Height Start Date: 10/12/19 Stop Date: 04/09/20 Status: OrderedAspirin 81, mg, By Mouth, Daily, 0, 0, 04/12/06 11:40:18, Print RADHA Number, [id number], Constant Indicator Start Date: 04/12/06 Status: OrderedColace [...] 02/18/20 11:29:00 EST, Route to Pharmacy Electronically, [facility], Partial [...] 1 Refills, Maintenance, 10/12/19 9:33:00 EDT, Tablet, [facility], 160.2, cm, 10/02/19 13:49:00 EDT, Height Start Date: 10/12/19 Stop Date: 04/09/20 Status: Orderedlisinopril 40 mg oral tablet 1 tablet = 40 mg, By Mouth, Daily, # 30 tablet, 5 Refills, Maintenance, 10/12/19 9:33:00 EDT, Tablet, [facility], 160.2, cm, 10/02/19 13:49:00 EDT, [...] tablet, 0 Refills, Maintenance, 03/10/20 8:59:00 EST, [facility], Partial fill upon patient request., 160.2, cm, 02/18/20 10:29:00 EST, Height Start Date: 03/10/20 Status: OrderedSenna By Mouth, Daily, 0 Refills, Maintenance, 11/11/18 11:53:35 EDT Start Date: 11/11/18 Status: Orderedtopiramate 100 mg oral tablet 1 tablet = 100 mg, By Mouth, Daily at bedtime, # 28 tablet, 5 Refills, Maintenance, 08/25/19 8:09:00EDT, [facility], 160.5, cm, 07/07/19 9:17:00 EDT, Height Start Date: 08/25/19 Status: OrderedValium 5 mg oral tablet 5 mg, 1, tablet, By Mouth, 3 times a day, PRN, may take 4th tablet for severe spasm, # 112 tablet, Refills 2, Tot. Refills 2, Maintenance, muscle spasm, 03/10/20 8:59:00 EST, Route to Pharmacy Electronically, [facility], 160.2, cm, 02/18/20 10... Start [...] Active Vitamin D deficiency(Confirmed) Active 1neg stress iqpo6Hpw back pain DOI 04/08/200896975tqifjcx Oswestry Disability Index: 62% ( crippled ) on 06/30/18; initial [place] Back Pain Scale: 81 on goal < 130 smoker, HFi3spslshv point injections-neuro Dr HollowayJxjyvj8euwj management per Dr Alexis [place]- hdbtp4ZMOO EUVLT1YJ joint dysfunction status post mpjymtyib8MON 05/24 degenerative changes, L5 S1 facet joint inflam-vo91Jgoz score 0.6 hip, 5.7 dlmrt98WDHWE-I: 15 on 2ACE score: 6 on 11/11/18 Social History Social History Type Response Smoking Status 10 or more cigarettes (1/2 p ack or more)/day in last 30 days; Type: Cigarettes; Other: 1ppd-1/2ppd; Started at age: 24; entered on: 09/22/18 Sex
--- OUTSIDE RECORDS SUMMARY | 2022-04-27 19:46 | XMS_ITS | Continuity of Care Document ---
:1955 Author Organization [facility] Adult Address [address] [place] [address]- Care Team Providers Name Role Phone Kelsie Oliver Primary Care Physician Encounter [facility] [place] Date(s): 08/03/20 - 09/02/[address] [facility] [address] [place] [address]- Allergies, Adverse Reactions, Alerts Substance Reaction Severity [...] 07/12/20 11:52:00 EDT, Route to Pharmacy Electronically, [facility], 160.2, cm, 06/30/20 13:45:00 EDT, Height Start Date: 07/12/20 Stop Date: 01/08/21 Status: OrderedAspirin 81, mg, By Mouth, Daily, 0, 0, 04/12/06 11:40:18, Print RADHA Number, [id number], Constant Indicator Start Date: 04/12/06 Status: OrderedControlled [...] 1 Refills, Maintenance, 08/19/20 14:28:00 EDT, Capsule, [facility], Partial [...] Acute 09/05/20 11:21:00 EDT, 08/22/2110:21:00 EDT, Patch, [facility], Partial fill upon patient request if the prescription is for a schedule II opioid drug., 1 patch Topically Da... Start Date: 08/22/20 Stop Date: 09/05/20 Status: OrderedtraZODone 50 mg oral tablet 25 mg, 0.5, tablet, By Mouth, Daily at bedtime, # 15 tablet, Refills 3, Tot. Refills 3, Maintenance,08/08/20 10:06:00 EDT, Route to Pharmacy Electronically, [facility], Discontinue Cymbalta, 160, cm, 08/08/20 9:24:00 EDT, Height, 67.9, kg, 05... Start Date: 08/08/20 Stop Date: 12/06/20 Status: OrderedValium 5 mg oral tablet 5 mg, 1, tablet, By Mouth, 2 times a day, PRN, for 14 days, # 28 tablet, Refills 1, Tot. Refills 1, Acute 09/16/20 14:28:00 EDT, Pain , Severe, 08/19/20 14:28:00 EDT, Route to Pharmacy Electronically, [facility], Partial fill upon patient requ... [...] Active Vitamin D deficiency(Confirmed) Active 1neg stress ffgl4Hhj back pain DOI 04/08/200892416Kvlavhf Oswestry Disability Index: 58% (26/45; severe disability ); updated [place] Back Pain Disability Scale score: 71 both on initial Oswestry Disability Index: 62% ( crippled ) on 06/30/18; initial [place] Back Pain Scale: 81 on goal < 130 smoker, FHx6 trigger point injections-neuro Dr HollowayYnykro6ezkz management per Dr Alexis bland- ngqfn0AOKW LXGCK1YJ joint dysfunction status post obbvcqjtd10QEK 05/24 degenerative changes, L5 S1 facet joint inflam-hj12Izpb score 0.6 hip, 5.7 tlgwf38CPJGU-D: 15 on 3ACE score: 6 on 11/11/18 Social History Social History Type Response Smoking Status Cigars or pipes but not tad y within last 30 days entered on: 07/29/20 Sex
--- OUTSIDE RECORDS SUMMARY | 2022-04-27 19:46 | XMS_ITS | Continuity of Care Document ---
:1955 Author Organization [facility] Address [address] [place] [address]- Care Team Providers Name Role Phone Kelsie Oliver Primary Care Physician Encounter [facility] Date(s): 10/04/21 - 11/03/21 [facility] [address] [place], [place] [address] Allergies, Adverse Reactions, Alerts Substance Reaction [...] Maintenance, 09/18/2215:40:00 EDT, Route to Pharmacy Electronically, [facility], 160, cm, 09/15/21 4:30:00 EDT, Height, 74, kg, 09/13/21 20:36:00 EDT, Dry Weight Start Date: 09/17/21 Status: Ordereddiltiazem 180 mg/24 hours oral capsule, extended release 180 mg, 1, capsule, By Mouth, Daily, # 30 capsule, Refills 5, Tot. Refills 5, Maintenance, 09/17/21 16:39:00 EDT, Route to Pharmacy Electronically, [facility], 160, cm, 09/15/21 4:30:00 EDT, [...] Active Paroxysmal atrial flutter(Confirmed) Active 1neg stress orvm1Eboybjw Oswestry Disability Index: 58% (26/45; severe disability ); updated [place] Back Pain Disability Scale score: 71 both on 07/20/20 3initial Oswestry Disability Index: 62% ( crippled ) on 06/30/18; initial [place] Back Pain Scale: 81 on goal < 130 smoker, FGq3Mgfh score 0.6 hip, 5.7 other Social History Social History Type Response Smoking Status 5-9 cigarettes (between 1/4 to 1/2 pack)/day in last 30 days; Interested in cessation: No; Patient wants NRT during admission Yes entered on: 09/13/21 Sex Female
--- OUTSIDE RECORDS SUMMARY | 2022-04-27 19:46 | XMS_ITS | Continuity of Care Document ---
:1955 Author Organization [facility] Address [address] [place] [address]- Care Team Providers Name Role Phone Kelsie Oliver Primary Care Physician [place] [facility] [place] [facility] [address] [place] [address]- Attending Physician: Brenton Cabrera Admitting Physician: Admtr, Brenton Referring Physician: Admtr, Ar8 Allergies, Adverse Reactions, Alerts Substance Reaction Severity Status doxycycline rash Active tetracycline red blotches Persistent Moderate Active nonsteroidal anti-inflammatory agents [D]Wheezing Active penicillin rash Active penicillins Active sulfa [...] 10/12/19 9:33:00 EDT, Route to Pharmacy Electronically, [facility], 160.2, cm, 10/02/19 13:49:00 EDT, Height Start Date: 10/12/19 Stop Date: 04/09/20 Status: OrderedAspirin 81, mg, By Mouth, Daily, 0, 0, 04/12/06 11:40:18, Print RADHA Number, [id number], Constant Indicator Start Date: 04/12/06 Status: OrderedColace Clear = 50 mg, By Mouth, 2 times a day, 0 Refills, Maintenance, 04/16/16 11:25:20 Start Date: 04/16/16 Status: OrderedControlled Substance Agreement Controlled Substance Agreement, See Instructions, # 1 each, Refills 0, Tot. Refills 0, Maintenance, controlled substance agreement signed 10/16/18, pharmacy [facility], dx: mechanical low back pain, 10/16/18 13:09:44 EDT, Compound Start Date: 10/16/18 Status: OrderedEffexor XR 75 mg oral capsule, extended release 75 mg, 1, capsule, By Mouth, Daily, # 90 capsule, Refills 3, Tot. Refills 3, Maintenance, 02/18/20 11:29:00 EST, Route to Pharmacy Electronically, [facility], Partial fill upon patient request if the prescription is for a schedule II opioid Start Date: 02/18/20 Status: OrderedFlector Patch 1.3% topical film, extended release 1 patch, Topically, 2 times a day, PRN for pain, # 30 patch, 0 Refills, Maintenance, 04/16/16 11:24:30, Patch Start Date: 04/16/16 Status: OrderedLipitor 10 mg oral tablet 1 tablet = 10 mg, By Mouth, Daily, # 90 tablet, 1 Refills, Maintenance, 10/12/19 9:33:00 EDT, Tablet, [facility], 160.2, cm, 10/02/19 13:49:00 EDT, Height Start Date: 10/12/19 Stop Date: 04/09/20 Status: Orderedlisinopril 40 mg oral tablet 1 tablet = 40 mg, By Mouth, Daily, # 30 tablet, 5 Refills, Maintenance, 10/12/19 9:33:00 EDT, Tablet, [facility], 160.2, cm, 10/02/19 [...] tablet, 0 Refills, Maintenance, 03/10/20 8:59:00 EST, [facility], Partial fill upon patient request., 160.2, cm, 02/18/20 10:29:00 EST, Height Start Date: 03/10/20 Status: OrderedSenna By Mouth, Daily, 0 Refills, Maintenance, 11/11/18 11:53:35 EDT Start Date: 11/11/18 Status: Orderedtopiramate 100 mg oral tablet 1 tablet = 100 mg, By Mouth, Daily at bedtime, # 28 tablet, 5 Refills, Maintenance, 08/25/19 8:09:00EDT, [facility], 160.5, cm, 07/07/19 9:17:00 EDT, Height Start Date: 08/25/19 Status: OrderedValium 5 mg oral tablet 5 mg, 1, tablet, By Mouth, 3 times a day, PRN, may take 4th tablet for severe spasm, # 112 tablet, Refills 2, Tot. Refills 2, Maintenance, muscle spasm, 03/10/20 8:59:00 EST, Route to Pharmacy Electronically, [facility], 160.2, cm, 02/18/20 10... Start [...] Active Vitamin D deficiency(Confirmed) Active 1neg stress dfdn1Oai back pain DOI 04/08/200801619wucqnhf Oswestry Disability Index: 62% ( crippled ) on 06/30/18; initial [place] Back Pain Scale: 81 on goal < 130 smoker, MAz3dybjctu point injections-neuro Dr HollowayAyowbe8erhz management per Dr Alexis sweeny- wllsg5CPWK VTDFV7MX joint dysfunction status post raxetzosm6DVI 05/24 degenerative changes, L5 S1 facet joint inflam-fc69Doae score 0.6 hip, 5.7 bdufi63NHFNH-V: 15 on 2ACE score: 6 on 11/11/18 Social History Social History Type Response Smoking Status 10 or more cigarettes (1/2 p ack or more)/day in last 30 days; Type: Cigarettes; Other: 1ppd-1/2ppd; Started at age: 24; entered on: 09/22/18 Sex
--- OUTSIDE RECORDS SUMMARY | 2022-04-27 19:47 | XMS_ITS | Continuity of Care Document ---
:1955 Author Organization [facility] Address Unavailable , Care Team Providers Name Role Phone Kelsie Oliver Primary Care Physician Encounter [facility] [place] Date(s): 02/21/21 - 03/23/21 [facility] Allergies, Adverse Reactions, Alerts Substance [...] 11:52:00 EDT, Route to Pharmacy Electronically, [facility], 160.2, cm, 06/30/20 13:45:00 EDT, Height Start Date: 07/12/20 Stop Date: 01/08/21 Status: OrderedAspirin 81, mg, By Mouth, Daily, 0, 0, 04/12/06 11:40:18, Print RADHA Number, [id number], Constant Indicator Start Date: 04/12/06 Status: Orderedatorvastatin 10 mg oral tablet See Instructions, TAKE ONE TABLET BY MOUTH ONCE DAILY, # 90 tablet, 0 Refills, [facility], 160, cm, 10/31/20 9:48:00 EDT, Height, 66, kg, 08/10/20 13:30:00 EDT, Dry Weight Start Date: 11/04/20 Status: OrderedbuPROPion 100 mg oral tablet 1 tablet = 100 mg, By Mouth, 2 times a day, # 180 tablet, 3 Refills, Maintenance, 02/22/21 8:29:00 EST, Tablet, [facility], Partial fill upon patient request if the prescription is for a schedule II opioid drug., 160, cm, 02/16/21 11:16:00 EST... Start Date: 02/22/21 Status: OrderedControlled Substance Agreement Controlled Substance Agreement, See Instructions, # 1 each, Refills 0, Tot. Refills 0, Maintenance, controlled substance agreement signed 10/16/18 Updated: 07/20/2020 pharmacy [facility] Geraldo dx: mechanical low back [...] 02/21/21 16:31:00 EST, Route to Pharmacy Electronically, [facility], Partial fill upon patientrequest if [...] 3 Refills, Maintenance, 02/21/21 17:30:00 EST, Tablet, [facility], Partial fill upon patient request if the prescription is for a schedule II opioid drug., 160, cm, 12/0... Start Date: 02/21/21 Status: Orderednortriptyline 25 mg oral capsule 25 mg, 1, capsule, By Mouth, Daily at bedtime, # 30 capsule, Refills 3, Tot. Refills 3, Maintenance,02/22/21 8:27:00 EST, Route to Pharmacy Electronically, [facility], Partial fill upon patient request if the prescription is for a schedule II... Start Date: 02/22/21 Status: Orderedsenna - oral liquid 10 mL, By Mouth, Daily at bedtime, # 60 mL, 0 Refills, Maintenance, 02/02/21 14:48:00 EST, Liquid, [facility], Partial fill upon patient [...] Active Vitamin D deficiency(Confirmed) Active 1neg stress irbc6Znw back pain DOI 04/08/200888283Yguoksc Oswestry Disability Index: 58% (26/45; severe disability ); updated [place] Back Pain Disability Scale score: 71 both on initial Oswestry Disability Index: 62% ( crippled ) on 06/30/18; initial [place] Back Pain Scale: 81 on goal < 130 smoker, FHx6 trigger point injections-neuro Dr HollowayIinagg1eloj management per Dr Alexis [place]- jbazv8DOOQ ORGMA5MV joint dysfunction status post wzpgzfjuo66OXW 05/24 degenerative changes, L5 S1 facet joint inflam-ig00Fmhu score 0.6 hip, 5.7 mshum42OCGIC-S: 15 on 3ACE score: 6 on 11/11/18 Social History Social History Type Response Smoking Status Cigars or pipes but not tad y within last 30 days entered on: 07/29/20 Sex Female
--- OUTSIDE RECORDS SUMMARY | 2022-04-27 19:47 | XMS_ITS | Continuity of Care Document ---
:1955 Author Organization [facility] Address Unavailable , Care Team Providers Name Role Phone Kelsie Oliver Primary Care Physician [place] [facility] [place] Date(s): 10/31/20 - 11/30/20 [facility] Attending Physician: Brenton Cabrera Admitting Physician: [...] 07/12/20 11:52:00 EDT, Route to Pharmacy Electronically, [facility], 160.2, cm, 06/30/20 13:45:00 EDT, Height Start Date: 07/12/20 Stop Date: 01/08/21 Status: OrderedAspirin 81, mg, By Mouth, Daily, 0, 0, 04/12/06 11:40:18, Print RADHA Number, [id number], Constant Indicator Start Date: 04/12/06 Status: Orderedatorvastatin 10 mg oral tablet See Instructions, TAKE ONE TABLET BY MOUTH ONCE DAILY, # 90 tablet, 0 Refills, [facility], 160, cm, 10/31/20 9:48:00 EDT, Height, 66, kg, 08/10/20 13:30:00 EDT, Dry Weight Start Date: 11/04/20 Status: OrderedControlled Substance Agreement Controlled Substance Agreement, See Instructions, # 1 each, Refills 0, Tot. Refills 0, Maintenance, controlled substance agreement signed 10/16/18 Updated: 07/20/2020 pharmacy [facility] Chow dx: mechanical low back pain [...] tablet, 1 Refills, Maintenance, 06/29/20 8:06:00 EDT, [facility], 160.2, cm, 05/30/20 11:21:00 [...] 1 Refills, Maintenance, 07/12/20 11:52:00 EDT, Tablet, [facility], 160.2, cm, 06/30/20 13:45:00 [...] Active Vitamin D deficiency(Confirmed) Active 1neg stress vedz2Mkp back pain DOI 04/08/200846964Sqlhzjm Oswestry Disability Index: 58% (26/45; severe disability ); updated [place] Back Pain Disability Scale score: 71 both on initial Oswestry Disability Index: 62% ( crippled ) on 06/30/18; initial [place] Back Pain Scale: 81 on goal < 130 smoker, FHx6 trigger point injections-neuro Dr HollowayQwydlq1qsnp management per Dr Alexis [place]- kwbhx2XQHD YSPOF9FV joint dysfunction status post tvcpuyfqr95ODC 05/24 degenerative changes, L5 S1 facet joint inflam-be11Edcf score 0.6 hip, 5.7 pvcvc38RGQUV-Z: 15 on 3ACE score: 6 on 11/11/18 Social History Social History Type Response Smoking Status Cigars or pipes but not tad y within last 30 days entered on: 07/29/20 Sex Female
--- OUTSIDE RECORDS SUMMARY | 2022-04-27 19:47 | XMS_ITS | Continuity of Care Document ---
:1955 Author Organization [facility] Address [address] [place] [address]- Care Team Providers Name Role Phone Kelsie Oliver Primary Care Physician Encounter [facility] Date(s): 02/20/22 - 03/22/22 [facility] [address] [place] [address]- Allergies, Adverse Reactions, Alerts Substance Reaction Severity Status doxycycline rash Active tetracycline red blotches Persistent Moderate Active nonsteroidal anti-inflammatory agents [D]Wheezing Active Adhesive Bandage Active Cymbalta Active Flexeril rash Active penicillin rash Active sulfa drugs Active Immunizations Given and Recorded Vaccine Date Status Refusal Reason influenza virus vaccine, inactivated 03/06/22 Given influenza virus vaccine, inactivated 02/15/22 Recorded [id number] bivalent booster vax 12/13/21 Recorde d SARS-CoV-2 [...] 09/15/21 Status: OrderedoxyCODONE 5 mg oral tablet See Instructions, PRN, 1 - 2 tabs By Mouth Every 6 hours as needed for pain, # 30 tablet, Refills 0,Tot. Refills 0, Acute 03/29/22 16:22:00 EST, as needed for pain, 03/22/22 16:21:00 EST, InstructionsReplace Required Details, Route to Pharmacy Elect... Start Date: 03/22/22 Stop Date: 03/29/22 Status: OrderedoxyCODONE 5 mg oral tablet 10 [...] adenocarcinoma of upper lobe of left lung ([id number]) MDD (major depressive Confirmed Active disorder), recurrent episode, moderate Subclavian artery Confirmed Active stenosis, left Tubular adenoma of Confirmed Active colon Vertebral artery Confirmed Active occlusion 1neg stress yllr6Jnslooc Oswestry Disability Index: 58% (26/45; severe disability ); updated [place] Back Pain Disability Scale score: 71 both on 07/20/20 3initial Oswestry Disability Index: 62% ( crippled ) on 06/30/18; initial [place] Back Pain Scale: 81 on goal < 130 smoker, MRw6Omdj score 0.6 hip, 5.7 other Social History [...] information Care Team PersonnelName: Kelsie Oliver Position: S PCO Associate Professional Member Role: PCP Address: Address: [address] [place] [address]- [place] Name: Manas Landaverde RN Position: S RN Member Role: Primary Care Nurse Name: Aide Reid RN Position: S RN Member Role: Primary Care Nurse Name: Kyra Byrne RN Position: S RN Member Role: Primary Care Nurse Name: Ryan Blackmon DO Position: [facility] Physician -Physician Practices Member Role: [employer] Consulting Physician Address: Address: [address] [place] [id number]- [place] Name: Karen Stearns RN Position: [facility] RN Member Role: Primary Care Nurse Name: Vandana Hu RN Position: S RN Member Role: Primary Care Nurse Name: Karen Padilla RN Position: [facility] RN Member Role: Primary Care Nurse Care Team Related PersonsName: SILVER ROSSI Name: LASHAY MORLEY Address: [address] [address]
--- OUTSIDE RECORDS SUMMARY | 2022-04-27 19:47 | XMS_ITS | Continuity of Care Document ---
:1955 Author Organization [facility] Address Unavailable , Care Team Providers Name Role Phone Kelsie Oliver Primary Care Physician [place] [facility] [place](s[place] 02/16/21 - 03/18/21 [facility] Attending Physician: Brenton Cabrera Admitting Physician: AdmtrBrenton Referring Physician: AdmtrBrenton Allergies, Adverse Reactions, Alerts Substance Reaction Severity Status doxycycline rash Active tetracycline red blotches Persistent Moderate Active penicillins Active Cymbalta Active nonsteroidal anti-inflammatory agents [D]Wheezing Active penicillin rash Active sulfa drugs Active Flexeril rash Active Immunizations Given and Recorded Vaccine Date Status Refusal Reason SARS-CoV-2 (COVID-19) mRNA-1273 vaccine 06/12/20 Recorded SARS-CoV-2 (COVID-19) mRNA-1273 vaccine 05/15/20 Recorded tetanus/diphtheria/pertussis, acel(Tdap) 06/02/15 Given tetanus-diphtheria toxoids (Td)1 05/16/05 Given 1Admin Note: [facility] Medications Acetaminophen 1 tab with oxycodone as needed, 0 Refills, Maintenance, 09/15/20 14:06:00 EDT, Partial fill upon patient request if the prescription is for a schedule II opioid drug. Start Date: 09/15/20 Status: OrderedamLODIPine 5 mg oral tablet 5 mg, 1, tablet, By Mouth, Daily, # 90 tablet, Refills 1, Tot. Refills 1, Maintenance, 07/12/20 11:52:00 EDT, Route to Pharmacy Electronically, [facility], 160.2, cm, 06/30/20 13:45:00 EDT, Height Start Date: 07/12/20 Stop Date: 01/08/21 Status: OrderedAspirin 81, mg, By Mouth, Daily, 0, 0, 04/12/06 11:40:18, Print RADHA Number, [id number], Constant Indicator Start Date: 04/12/06 Status: Orderedatorvastatin [...] Maintenance, 02/22/21 8:29:00 EST, Tablet, [facility], Partial fill upon patient request if the prescription is for a schedule II opioid drug., 160, cm, 02/16/21 11:16:00 EST... Start Date: 02/22/21 Status: OrderedControlled Substance Agreement Controlled Substance Agreement, See Instructions, # 1 each, Refills 0, Tot. Refills 0, Maintenance, controlled substance agreement signed 10/16/18 Updated: 07/20/2020 pharmacy [facility] Geraldo dx: mechanical low [...] 02/21/21 16:31:00 EST, Route to Pharmacy Electronically, [facility], Partial fill upon patientrequest [...] 3 Refills, Maintenance, 02/21/21 17:30:00 EST, Tablet, [facility], Partial fill upon patient request if the prescription is for a schedule II opioid drug., 160, cm, 12/0... Start Date: 02/21/21 Status: Orderednortriptyline 25 mg oral capsule 25 mg, 1, capsule, By Mouth, Daily at bedtime, # 30 capsule, Refills 3, Tot. Refills 3, Maintenance,02/22/21 8:27:00 EST, Route to Pharmacy Electronically, [facility], Partial fill upon patient request if the prescription is for a schedule II... Start Date: 02/22/21 Status: Orderedsenna - oral liquid 10 mL, By Mouth, Daily at bedtime, # 60 mL, 0 Refills, Maintenance, 02/02/21 14:48:00 EST, Liquid, [facility], Partial fill upon [...] Active Vitamin D deficiency(Confirmed) Active 1neg stress luha9Ltf back pain DOI 04/08/200831114Olpgblh Oswestry Disability Index: 58% (26/45; severe disability ); updated [place] Back Pain Disability Scale score: 71 both on initial Oswestry Disability Index: 62% ( crippled ) on 06/30/18; initial [place] Back Pain Scale: 81 on goal < 130 smoker, FHx6 trigger point injections-neuro Dr HollowayUvyfcw0ohpg management per Dr Alexis moose- bybqw2UKHA XYREY0SW joint dysfunction status post chvuifafj29LDN 05/24 degenerative changes, L5 S1 facet joint inflam-tk18Xvwf score 0.6 hip, 5.7 ippsb62IKKRS-X: 15 on 3ACE score: 6 on 11/11/18 Social History Social History Type Response Smoking Status Cigars or pipes but not tad y within last 30 days entered on: 07/29/20 Sex Female
--- OUTSIDE RECORDS SUMMARY | 2022-04-27 19:47 | XMS_ITS | Continuity of Care Document ---
:1955 Author Organization [facility] Address [address] [place] [address], [address] [place] [address]- Care Team Providers Name Role Phone Kelsie Oliver Primary Care Physician [place] [facility] [place] 02/07/22 [facility] [address] [place] [address], [address] [place] [address]- Encounter Diagnosis Primary adenocarcinoma of upper lobe of left lung ([id number]) (Discharge Diagnosis) - 01/31/22 Subclavian artery stenosis, left (Discharge Diagnosis) - 01/31/22 Heavy smoker (more than 20 cigarettes per day) (Discharge Diagnosis) - 01/31/22 Chronic anticoagulation (Discharge Diagnosis) - 01/31/22 Attending Physician: Jacquie Sterling MD Allergies, Adverse Reactions, [...] 5 Refills, Maintenance, 09/17/21 16:39:00 EDT, Tablet, [facility], 160, cm, 09/15/21 4:30:00 [...] 90 tablet, 1 Refills, 07/24/21 14:35:00 EDT, [facility], 160, cm, 02/16/21 11:16:00 EST, Height, 64, kg, 01/19/21 11:44:00 EDT, Dry Weight Start Date: 07/24/21 Status: Orderedcyanocobalamin 1000 mcg oral tablet 1,000 mcg, 1, tablet, By Mouth, Daily, # 90 tablet, Refills 1, Tot. Refills 1, Maintenance, 09/18/2215:40:00 EDT, Route to Pharmacy Electronically, [facility], 160, cm, 09/15/21 4:30:00 EDT, Height, 74, kg, 09/13/21 20:36:00 EDT, Dry Weight Start Date: 09/17/21 Status: Ordereddiltiazem 180 mg/24 hours oral capsule, extended release 180 mg, 1, capsule, By Mouth, Daily, # 30 capsule, Refills 5, Tot. Refills 5, Maintenance, 09/17/21 16:39:00 EDT, Route to Pharmacy Electronically, [facility], 160, cm, 09/15/21 4:30:00 [...] 1 Refills, Maintenance, 09/17/21 16:40:00 EDT, Patch, [facility], 24 hr Topically Daily, 160, cm, 09/15/21 4:30:00 EDT, Height, 74, kg, 09/13/21 20:36:00 EDT, Dry Weight Start Date: 09/17/21 Status: OrderedSenna 8.8 mg/5 mL oral syrup 10 mL, By Mouth, Daily at bedtime, # 900 mL, 3 Refills, Maintenance, 01/18/22 13:14:00 EDT, [facility], 10 mL By Mouth Daily [...] adenocarcinoma of upper lobe of left lung ([id number]) Subclavian artery Confirmed Active stenosis, left Tubular adenoma of Confirmed Active colon 1neg stress qyce2Fkmedsy Oswestry Disability Index: 58% (26/45; severe disability ); updated [place] Back Pain Disability Scale score: 71 both on 07/20/20 3initial Oswestry Disability Index: 62% ( crippled ) on 06/30/18; initial [place] Back Pain Scale: 81 on goal < 130 smoker, HKa8Quny score 0.6 hip, 5.7 other Diagnosis Diagnosis Type Effective Dates Health Clinical Infor mant Status Service Primary Discharge 01/31/22 adenocarcinoma of Diagnosis upper lobe of left lung ([id number]) Subclavian artery Discharge 01/31/22 stenosis, left Diagnosis Heavy smoker (more Discharge 01/31/22 than 20 cigarettes Diagnosis per day) Chronic Discharge 01/31/22 anticoagulation Diagnosis Procedures Procedure Date Related Diagnosis Body Site Status Colonoscopy, flexible; with biopsy, 01/16/22 Completed single or multiple Bronchoscopy, rigid or flexible, Completed including fluoroscopic guidance, when performed; with computer-assisted, image-guided navigation (List separately in addition to code for primary procedure[s]) Vital Signs Most recent to oldest [Reference Range]: 1 Height 163 cm (01/31/22 2:28 PM) Weight 73.8 kg (01/31/22 2:28 PM) Oxygen Saturation [94-100 %] 98 % (01/31/22 2:28 PM) Pulse Rate [55-90 bpm] 85 bpm (01/31/22 2:28 PM) Body Mass Index [18.5-24.99 kg/m2] 27.78 kg/m2 *H* (01/31/22 2:28 PM) Blood Pressure [90-138/55-84 mm Hg] 138/72 mm Hg (01/31/22 2:28 PM) Temperature [96.8-100.4 DegF] 97.3 DegF (01/31/22 2:28 PM) Mode of Delivery (Oxygen) Room air (01/31/22 2:28 PM) Blood pressure sites Arm, right (01/31/22 2:28 PM) Temperature Route Temporal (01/31/22 2:28 PM) Weight Obtained Via Standing scale (01/31/22 2:28 PM) Social History Social History Type Response [...] Associate Professional Member Role: PCP Address: Address: [address] [place] [id number]- Name: Ryan Blackmon DO Position: [facility] Physician -Physician Practices Member Role: [employer] Consulting Physician Address: Address: [address] [place] [address]- Name: Karen Stearns RN Position: [facility] RN Member Role: Primary Care Nurse Name: Vandana Hu RN Position: [facility] RN Member Role: Primary Care Nurse Care Team Related PersonsName: SILVER ROSSI Name: LASHAY MORLEY Address: [address] [address]
--- OUTSIDE RECORDS SUMMARY | 2022-04-27 19:47 | XMS_ITS | Continuity of Care Document ---
:1955 Author Organization [facility] Address [address] [place] [address]- Care Team Providers Name Role Phone Kelsie Oliver Primary Care Physician [place] [facility] [place]20 [facility] [address] [place] [address]- Attending Physician: Not on Staff, Attending MD [...] 07/12/20 11:52:00 EDT, Route to Pharmacy Electronically, [facility], 160.2, cm, 06/30/20 13:45:00 EDT, Height Start Date: 07/12/20 Stop Date: 01/08/21 Status: OrderedAspirin 81, mg, By Mouth, Daily, 0, 0, 04/12/06 11:40:18, Print RADHA Number, [id number], Constant Indicator Start Date: 04/12/06 Status: OrderedControlled Substance Agreement Controlled Substance Agreement, See Instructions, # 1 each, Refills 0, Tot. Refills 0, Maintenance, controlled substance agreement signed 10/16/18 Updated: 07/20/2020 pharmacy [facility] Chow dx: mechanical low back pain M54.5, 07/25/20 8:52:00 EDT, Compound Start Date: 07/25/20 Status: OrderedCymbalta 30 mg oral enteric coated capsule 1 capsule = 30 mg, By Mouth, Daily, For Fibromyalgia, # 30 capsule, 6 Refills, Maintenance, 08/04/2113:24:00 EDT, [facility], Partial fill upon patient [...] Refills, Maintenance, 06/29/20 8:06:00 EDT, [facility], 160.2, cm, 05/30/20 [...] Refills, Maintenance, 04/09/20 9:33:00 EST, Tablet, [facility], 160.2, cm, 03/24/20 12:29:00 EST, Height Start Date: 04/09/20 Stop Date: 7/22/21 Status: Orderedlisinopril 40 mg oral tablet 1 [...] Maintenance,08/08/20 10:06:00 EDT, Route to Pharmacy Electronically, [facility], Discontinue Cymbalta, 160, cm, [...] Active Vitamin D deficiency(Confirmed) Active 1neg stress lxbw8Nje back pain DOI 04/08/200823158qsthhjn Oswestry Disability Index: 62% ( crippled ) on 06/30/18; initial [place] Back Pain Scale: 81 on goal < 130 smoker, LMu2bxyobse point injections-neuro Dr HollowayJatukx0vefq management per Dr Alexis dry fork- czfjg2TTYN XIQKM8FV joint dysfunction status post rimikdvkz3PES 05/24 degenerative changes, L5 S1 facet joint inflam-su74Dsax score 0.6 hip, 5.7 vrohw04UZNDW-M: 15 on 2ACE score: 6 on 11/11/18 Vital Signs Most recent to oldest [Reference Range]: 1 Height 160 cm (08/02/20 11:08 AM) Weight 67.0 kg (08/02/20 11:08 AM) Oxygen Saturation [94-100 %] 98 % (08/02/20 11:08 AM) Pulse Rate [55-90 bpm] 105 bpm *H* (08/02/20 11:08 AM) Body Mass Index [18.5-24.99] 26.17 *H* (08/02/20 11:08 AM) Blood Pressure [90-138/55-84 mm Hg] 124/72 mm Hg (08/02/20 11:08 AM) Blood pressure sites Arm, left (08/02/20 11:08 AM) Weight Obtained Via Standing scale (08/02/20 11:08 AM) Social History Social History Type Response Smoking Status Cigars or pipes but not tad y within last 30 days entered on: 07/29/20 Sex
--- OUTSIDE RECORDS SUMMARY | 2022-04-27 19:47 | XMS_ITS | Continuity of Care Document ---
:1955 Author Organization [facility] Address Unavailable , Care Team Providers Name Role Phone Kelsie Oliver Primary Care Physician Encounter [facility] [place] Date(s): 10/03/21 - 11/02/21 [facility] Allergies, Adverse Reactions, Alerts Substance [...] 5 Refills, Maintenance, 09/17/21 16:39:00 EDT, Tablet, [facility], 160, cm, 09/15/21 4:30:00 EDT, Height, 74, kg, 09/13/21 20:36:00 EDT, Dry Weight Start Date: 09/17/21 Status: Orderedatorvastatin 10 mg oral tablet See Instructions, TAKE ONE TABLET BY MOUTH ONCE DAILY, # 90 tablet, 1 Refills, 07/24/21 14:35:00 EDT, [facility], 160, cm, 02/16/21 11:16:00 EST, [...] Active Paroxysmal atrial flutter(Confirmed) Active 1neg stress [id number] Oswestry Disability Index: 58% (26/45; severe disability ); updated [place] Back Pain Disability Scale score: 71 both on 07/20/20 3initial Oswestry Disability Index: 62% ( crippled ) on 06/30/18; initial [place] Back Pain Scale: 81 on goal < 130 smoker, PCf5Wrul score 0.6 hip, 5.7 other Social History Social History Type Response Smoking Status 5-9 cigarettes (between 1/4 to 1/2 pack)/day in last 30 days; Interested in cessation: No; Patient wants NRT during admission Yes entered on: 09/13/21 Sex Female
--- OUTSIDE RECORDS SUMMARY | 2022-04-27 19:47 | XMS_ITS | Continuity of Care Document ---
:1955 Author Organization [facility] Address [address] [place] [address]- Care Team Providers Name Role Phone Kelsie Oliver Primary Care Physician [place] [facility] [place] Date(s): 10/17/21 - 11/16/21 [facility] [address] [place] [address]- Allergies, Adverse Reactions, Alerts Substance Reaction Severity [...] Maintenance, 09/18/2215:40:00 EDT, Route to Pharmacy Electronically, [facility], 160, cm, 09/15/21 4:30:00 EDT, Height, 74, kg, 09/13/21 20:36:00 EDT, Dry Weight Start Date: 09/17/21 Status: Ordereddiltiazem 180 mg/24 hours oral capsule, extended release 180 mg, 1, capsule, By Mouth, Daily, # 30 capsule, Refills 5, Tot. Refills 5, Maintenance, 09/17/21 16:39:00 EDT, Route to Pharmacy Electronically, [facility], 160, cm, 09/15/21 4:30:00 EDT, [...] Active Paroxysmal atrial flutter(Confirmed) Active 1neg stress tvny2Rwenzau Oswestry Disability Index: 58% (26/45; severe disability ); updated [place] Back Pain Disability Scale score: 71 both on 07/20/20 3initial Oswestry Disability Index: 62% ( crippled ) on 06/30/18; initial [place] Back Pain Scale: 81 on goal < 130 smoker, TYi4Jdfh score 0.6 hip, 5.7 other Social History Social History Type Response Smoking Status 5-9 cigarettes (between 1/4 to 1/2 pack)/day in last 30 days; Interested in cessation: No; Patient wants NRT during admission Yes entered on: 09/13/21 Sex Female Care Team PersonnelName: Kelsie Oliver Address: [address] [place], [place] [address]
--- OUTSIDE RECORDS SUMMARY | 2022-04-27 19:47 | XMS_ITS | Continuity of Care Document ---
:1955 Author Organization [facility] Address [address] [place] [address]- Care Team Providers Name Role Phone Kelsie Oliver Primary Care Physician [id number]): [facility] - [facility] [address] [place] [address] Attending Physician: Tejas Abreu Jr, MD Admitting Physician: Lois Escobar MD, Tejas Bell Referring Physician: Kelsie Oliver Allergies, Adverse Reactions, [...] 07/12/20 11:52:00 EDT, Route to Pharmacy Electronically, [facility], 160.2, cm, 06/30/20 13:45:00 EDT, Height Start Date: 07/12/20 Stop Date: 01/08/21 Status: OrderedAspirin 81, mg, By Mouth, Daily, 0, 0, 04/12/06 11:40:18, Print RADHA Number, [id number], Constant Indicator Start Date: 04/12/06 Status: Orderedatorvastatin 10 mg oral tablet See Instructions, TAKE ONE TABLET BY MOUTH ONCE DAILY, # 90 tablet, 0 Refills, [facility], 160, cm, 10/31/20 9:48:00 [...] tablet, 1 Refills, Maintenance, 06/29/20 8:06:00 EDT, [facility], 160.2, cm, 05/30/20 11:21:00 [...] 1 Refills, Maintenance, 07/12/20 11:52:00 EDT, Tablet, [facility], 160.2, cm, 06/30/20 13:45:00 EDT, Height Start Date: 07/12/20 Stop Date: 09/29/20 Status: OrderedLORazepam 0.5 mg oral tablet 0.5 tablet = 0.25 mg, By Mouth, 2 times a day, # 5 tablet, 0 Refills, Acute 12/20/20 19:31:00 EDT, 12/14/20 19:30:00 EDT, Tablet, [facility], Partial fill upon patient request if the prescription is for a schedule II opioid drug., 161, cm, ... Start Date: 12/14/20 Stop Date: 12/20/20 Status: OrderedLyrica 50 mg oral capsule 1 capsule = 50 mg, By Mouth, 3 times a day, # 90 capsule, 3 Refills, Maintenance, 09/13/20 17:40:00 EDT, Capsule, [facility], Partial fill upon patient [...] tablet, 0 Refills, Maintenance, 09/14/20 17:19:00 EDT, [facility], 160, cm, 08/30/20 11:02:00 [...] Active Vitamin D deficiency(Confirmed) Active 1neg stress ibhd8Dfa back pain DOI 04/08/200894009Veaxvcm Oswestry Disability Index: 58% (26/45; severe disability ); updated [place] Back Pain Disability Scale score: 71 both on initial Oswestry Disability Index: 62% ( crippled ) on 06/30/18; initial [place] Back Pain Scale: 81 on goal < 130 smoker, FHx6 trigger point injections-neuro Dr HollowayTfgzim8giae management per Dr Alexis maple shade- hvvog8FOYN OBPCS8QI joint dysfunction status post yjmcddcet96KNA 05/24 degenerative changes, L5 S1 facet joint inflam-dc93Eomo score 0.6 hip, 5.7 rwvji48CJGQW-A: 15 on 3ACE score: 6 on 11/11/18 Social History Social History Type Response Smoking Status Cigars or pipes but not tad y within last 30 days entered on: 07/29/20 Sex Female
--- OUTSIDE RECORDS SUMMARY | 2022-04-27 19:47 | XMS_ITS | Continuity of Care Document ---
:1955 Author Organization [facility] Address [address] [place] [address]- Care Team Providers Name Role Phone Kelsie Oliver Primary Care Physician [place] [facility] [place]18[place] [facility] [address] [place] [address]- Allergies, Adverse Reactions, Alerts Substance Reaction Severity [...] Maintenance, 09/18/2215:40:00 EDT, Route to Pharmacy Electronically, [facility], 160, cm, 09/15/21 4:30:00 EDT, Height, 74, kg, 09/13/21 20:36:00 EDT, Dry Weight Start Date: 09/17/21 Status: Ordereddiltiazem 180 mg/24 hours oral capsule, extended release 180 mg, 1, capsule, By Mouth, Daily, # 30 capsule, Refills 5, Tot. Refills 5, Maintenance, 09/17/21 16:39:00 EDT, Route to Pharmacy Electronically, [facility], 160, cm, 09/15/21 4:30:00 EDT, [...] Active Paroxysmal atrial flutter(Confirmed) Active 1neg stress nsdb3Jtindlt Oswestry Disability Index: 58% (26/45; severe disability ); updated [place] Back Pain Disability Scale score: 71 both on 07/20/20 3initial Oswestry Disability Index: 62% ( crippled ) on 06/30/18; initial [place] Back Pain Scale: 81 on goal < 130 smoker, IDm9Sdes score 0.6 hip, 5.7 other Social History Social History Type Response Smoking Status 5-9 cigarettes (between 1/4 to 1/2 pack)/day in last 30 days; Interested in cessation: No; Patient wants NRT during admission Yes entered on: 09/13/21 Sex Female Care Team PersonnelName: Kelsie Oliver Address: [address] [place], [place] [address]
--- OUTSIDE RECORDS SUMMARY | 2022-04-27 19:47 | XMS_ITS | Continuity of Care Document ---
:1955 Author Organization [facility] Address [address] [place] [address]- Care Team Providers Name Role Phone Kelsie Oliver Primary Care Physician Encounter [facility] [place] Date(s): 06/17/19 - 06/27/19 [facility] [address] [place] [id number] [facility] Attending Physician: Brenton Cabrera Admitting Physician: Brenton aCbrera Referring Physician: AdmtrBrenton Allergies, Adverse Reactions, Alerts [...] 09/22/18 14:57:41 EDT, Route to Pharmacy Electronically, [id number], [facility] Start Date: 09/22/18 Stop Date: 09/17/19 Status: OrderedAspirin 81, mg, By Mouth, Daily, 0, 0, 04/12/06 11:40:18, Print RADHA Number, [id number], Constant Indicator Start Date: 04/12/06 Status: OrderedAzithromycin 5 Day Dose Pack 250 mg oral tablet 1 pack/packet, By Mouth, Once, # 6 tablet, 0 Refills, Soft Stop, 03/27/19 14:02:00 EST, Tablet, [facility], 160.5, cm, 03/27/19 13:36:00 EST, Height Start Date: 03/27/19 Status: OrderedClaritin 10 mg oral tablet 10 mg, 1, tablet, By Mouth, Daily, # 90 tablet, Refills 3, Tot. Refills 3, Maintenance, 03/27/19 14:00:00 EST, Route to Pharmacy Electronically, [facility], 160.5, cm, 03/27/19 13:36:00 [...] Refills, Maintenance, Tablet, Route to Pharmacy Electronically, [id number], [facility] Start Date: 09/22/18 Stop Date: 09/17/19 Status: Orderedlisinopril 40 mg oral tablet 1 tablet = 40 mg, By Mouth, Daily, # 30 tablet, 5 Refills, Maintenance, 05/05/19 11:40:00 EST, Tablet, [facility], 160.5, cm, 03/27/19 13:36:00 [...] pain., # 112 tablet, 0 Refills, Maintenance, 06/02/19 10:12:00 EDT, [facility], Partial fill upon patient request., 160.5, cm, 05/06/19 11:18:00 EST, Height Start Date: 06/02/19 Status: OrderedSenna By Mouth, Daily, 0 Refills, Maintenance, 11/11/18 11:53:35 EDT Start Date: 11/11/18 Status: Orderedtopiramate 100 mg oral tablet 1 tablet = 100 mg, By Mouth, Daily at bedtime, # 28 tablet, 3 Refills, Maintenance, 05/14/19 15:17:00 EST, [facility], 160.5, cm, 05/06/19 11:18:00 EST, Height Start Date: 05/14/19 Status: OrderedValium 5 mg oral tablet 5 mg, 1, tablet, By Mouth, 3 times a day, PRN, may take 4th tablet for severe spasm, # 112 tablet, Refills 2, Tot. Refills 2, Maintenance, muscle spasm, 04/09/19 9:15:00 EST, Route to Pharmacy Electronically, [facility], 160.5, cm, 03/27/19 13... Start [...] Active Vitamin D deficiency(Confirmed) Active 1neg stress [id number] back pain DOI 04/08/200898435cidppbf Oswestry Disability Index: 62% ( crippled ) on 06/30/18; initial [place] Back Pain Scale: 81 on goal < 130 smoker, LBk8lbdsqns point injections-neuro Dr HollowayVzhklq5wpff management per Dr Alexis [place]- hxely0HCOR PLMPC6PS joint dysfunction status post [id number] 05/24 degenerative changes, L5 S1 facet joint inflam-fs06Lrkp score 0.6 hip, 5.7 [id number]-N: 15 on 2ACE score: 6 on 11/11/18 Social History Social History Type Response Smoking Status 10 or more cigarettes (1/2 p ack or more)/day in last 30 days; Type: Cigarettes; Other: 1ppd-1/2ppd; Started at age: 24; entered on: 09/22/18 Sex
--- OUTSIDE RECORDS SUMMARY | 2022-04-27 19:47 | XMS_ITS | Continuity of Care Document ---
:1955 Author Organization [facility] Address [address] [place] [address]- Care Team Providers Name Role Phone Kelsie Oliver Primary Care Physician Encounter [facility] [place] Date(s): 01/05/22 - 02/04/22 [facility] [address] [address] Attending Physician: Brenton Cabrera Admitting Physician: Brenton [...] 1 Refills, 07/24/21 14:35:00 EDT, [facility], 160, cm, 02/16/21 11:16:00 EST, Height, 64, kg, 01/19/21 11:44:00 EDT, Dry Weight Start Date: 07/24/21 Status: Orderedcyanocobalamin 1000 mcg oral tablet 1,000 mcg, 1, tablet, By Mouth, Daily, # 90 tablet, Refills 1, Tot. Refills 1, Maintenance, 09/18/2215:40:00 EDT, Route to Pharmacy Electronically, [facility], 160, cm, 09/15/21 4:30:00 EDT, Height, 74, kg, 09/13/21 20:36:00 EDT, Dry Weight Start Date: 09/17/21 Status: Ordereddiltiazem 180 mg/24 hours oral capsule, extended release 180 mg, 1, capsule, By Mouth, Daily, # 30 capsule, Refills 5, Tot. Refills 5, Maintenance, 09/17/21 16:39:00 EDT, Route to Pharmacy Electronically, [facility], 160, cm, [...] 1 Refills, Maintenance, 09/17/21 16:40:00 EDT, Patch, [email or web address], 24 hr Topically Daily, 160, cm, 09/15/21 4:30:00 EDT, Height, 74, kg, 09/13/21 20:36:00 EDT, Dry Weight Start Date: 09/17/21 Status: OrderedSenna 8.8 mg/5 mL oral syrup 10 mL, By Mouth, Daily at bedtime, # 900 mL, 3 Refills, Maintenance, 01/18/22 13:14:00 EDT, [email or web address], 10 mL By Mouth Daily [...] adenocarcinoma of upper lobe of left lung ([id number]) Subclavian artery Confirmed Active stenosis, left Tubular adenoma of Confirmed Active colon 1neg stress [id number] Oswestry Disability Index: 58% (26/45; severe disability ); updated [place] Back Pain Disability Scale score: 71 both on 07/20/20 3initial Oswestry Disability Index: 62% ( crippled ) on 06/30/18; initial [place] Back Pain Scale: 81 on goal < 130 smoker, GYn1Thwc score 0.6 hip, 5.7 other Social History [...] information Care Team PersonnelName: Kelsie Oliver Position: [facility] PCO Associate Professional Member Role: PCP Address: Address: [address] [place] [id number]- Name: Ryan Blackmon DO Position: [facility] Physician -Physician Practices Member Role: [employer] Consult[employer] Physician Address: Address: [address] [place] [id number]- [place] Name: Karen Stearns RN Position: [facility] RN Member Role: Primary Care Nurse Name: Vandana Hu RN Position: [facility] RN Member Role: Primary Care Nurse Care Team Related PersonsName: SILVER ROSSI Name: LASHAY MORLEY Address: [address] [place] [address]
--- OUTSIDE RECORDS SUMMARY | 2022-04-27 19:47 | XMS_ITS | Continuity of Care Document ---
:[address] [facility] Address [address] [place] [address]- Care Team Providers Name Role Phone Kelsie Oliver Primary Care Physician Encounter [facility] [place] Date(s): 03/22/22 - 04/21/22 [facility] [address] [place] [address]- Attending Physician: Admkim, Brenton Admitting Physician: Admtr, James8 Referring Physician: Admtr, Ar8 Allergies, Adverse Reactions, Alerts Substance Reaction Severity Status doxycycline rash Active tetracycline red blotches Persistent Moderate Active amoxicillin Active sulfa drugs Active nonsteroidal anti-inflammatory agents [D]Wheezing Active Adhesive Bandage Active Cymbalta Active Flexeril rash Active penicillin rash Active Immunizations Given and Recorded Vaccine Date Status Refusal Reason influenza virus vaccine, inactivated 03/06/22 Given influenza virus vaccine, inactivated 02/15/22 Recorded [id number] bivalent booster vax 12/13/21 Recorde d SARS-CoV-2 [...] 04/14/22 9:47:00 EST, Route to Pharmacy Electronically, [facility], Partial fill upon patient request [...] 04/03/22 13:43:00 EST, Route to Pharmacy Electronically, [facility], Par... Start Date: 04/03/22 Status: [...] adenocarcinoma of upper lobe of left lung ([id number]) MDD (major depressive Confirmed Active disorder), recurrent episode, moderate Subclavian artery Confirmed Active stenosis, left Tubular adenoma of Confirmed Active colon Vertebral artery Confirmed Active occlusion 1neg stress [id number] Oswestry Disability Index: 58% (26/45; severe disability ); updated [place] Back Pain Disability Scale score: 71 both on 07/20/20 3initial Oswestry Disability Index: 62% ( crippled ) on 06/30/18; initial [place] Back Pain Scale: 81 on goal < 130 smoker, YHu7Ncbp score 0.6 hip, 5.7 other Social History Social History Type Response Smoking Status Use: 4 or less cigarettes(le ss than 1/4 pack)/day in last 30 days; Former smoker, quit more than 30 days ago; Other: QUIT 2 WEEKS AGO (01/17/2022); PRIOR TO THAT WAS ONLY 2-3 CIG/D X AGE 22; entered on: 01/31/22 Sex MR Abdomen Event Display: MRI Abdomen Authored Date: Patient Care team information Care Team PersonnelName: Kelsie Oliver Position: [facility] PCO Associate Professional Member Role: PCP Address: Address: [address] [place] [address]- Name: Manas Landaverde RN Position: [facility] RN Member Role: Primary Care Nurse Name: Aide Reid RN Position: [facility] RN Member Role: Primary Care Nurse Name: Rosey Kramer RN Position: [facility] RN Member Role: Primary Care Nurse Name: Kyra Byrne RN Position: [facility] RN Member Role: Primary Care Nurse Name: Ryan Blackmon DO Position: [facility] Physician -Physician Practices Member Role: [employer] Consult[employer] Physician Address: Address: [address] [place] [address]- Name: Karen Stearns RN Position: [facility] RN Member Role: Primary Care Nurse Name: Karen Padilla RN Position: [facility] RN Member Role: Primary Care Nurse Care Team Related PersonsName: SILVER ROSSI Name: LASHAY MORLEY Address: [address] [address]
--- OUTSIDE RECORDS SUMMARY | 2022-04-27 19:47 | XMS_ITS | Continuity of Care Document ---
:1955 Author Organization [facility] Address [address] [place] [address]- Care Team Providers Name Role Phone Kelsie Oliver Primary Care Physician Encounter [facility] [place] Date(s): 04/18/20 - 05/18/20 [facility] [address] [place] [id number] Allergies, Adverse Reactions, Alerts Substance [...] 04/09/20 9:33:00 EST, Route to Pharmacy Electronically, [email or web address], 160.2, cm, 03/24/20 12:29:00 EST, Height Start Date: 04/09/20 Stop Date: 07/08/20 Status: OrderedAspirin 81, mg, By Mouth, Daily, 0, 0, 04/12/06 11:40:18, Print RADHA Number, [id number], Constant Indicator Start Date: 04/12/06 Status: OrderedColace [...] tablet, 0 Refills, Maintenance, 04/20/20 11:07:00 EST, [email or web address], Partial fill upon patient request. [...] 03/10/20 8:59:00 EST, Route to Pharmacy Electronically, [email or web address], 160.2, cm, 02/18/20 10... Start [...] Active Vitamin D deficiency(Confirmed) Active 1neg stress spqg6Tgp back pain DOI 04/08/[id number] Oswestry Disability Index: 62% ( crippled ) on 06/30/18; initial [place] Back Pain Scale: 81 on goal < 130 smoker, NYo2fhdczlq point injections-neuro Dr HollowayWyjbkw5grap management per Dr Alexis kilbourne- erwjn0YOLA BKZYR2CD joint dysfunction status post [id number] 05/24 degenerative changes, L5 S1 facet joint inflam-vn96Tudv score 0.6 hip, 5.7 htzdh24BBQHS-H: 15 on 2ACE score: 6 on 11/11/18 Social History Social History Type Response Smoking Status 10 or more cigarettes (1/2 p ack or more)/day in last 30 days; Type: Cigarettes; Other: 1ppd-1/2ppd; Started at age: 24; entered on: 09/22/18 Sex
--- OUTSIDE RECORDS SUMMARY | 2022-04-27 19:47 | XMS_ITS | Continuity of Care Document ---
:1955 Author Organization [facility] Address [address] [place] [address]- Care Team Providers Name Role Phone Kelsie Oliver Primary Care Physician Encounter [facility] Date(s): 04/13/22 - 04/14/[address] [address] Discharge Disposition: A-D/C Home Attending Physician: Keith Morris DO Admitting Physician: Ca SHARPE, Sharonda Referring Physician: Kenan Connors MD Allergies, Adverse Reactions, Alerts Substance Reaction Severity Status doxycycline rash Active tetracycline red blotches Persistent Moderate Active penicillin rash Active sulfa drugs Active Flexeril rash Active nonsteroidal anti-inflammatory agents [D]Wheezing Active Adhesive Bandage Active Cymbalta Active Immunizations Given and Recorded Vaccine Date Status Refusal Reason influenza virus vaccine, inactivated 03/06/22 Given influenza virus vaccine, inactivated 02/15/22 Recorded [id number] bivalent booster vax 12/13/21 Recorde d SARS-CoV-2 (COVID-19) mRNA-1273 vaccine 03/06/21 Recorded SARS-CoV-2 (COVID-19) mRNA-1273 vaccine 06/12/20 Recorded SARS-CoV-2 (COVID-19) mRNA-1273 vaccine 05/15/20 Recorded tetanus/diphtheria/pertussis, acel(Tdap) 06/02/15 Given tetanus-diphtheria toxoids (Td)1 05/16/05 Given 1Admin Note: [facility] Medications Acetaminophen Tablet 650 mg, Tablet, By Mouth, Every 4 hours, PRN for Pain , Mild, Temperature Greater than 100.5, Routine, 04/12/22 16:04:00 EST Start Date: 04/12/22 Stop Date: 04/14/22 Status: DiscontinuedamLODIPine 2.5 mg oral tablet 2.5 mg, 1, tablet, By Mouth, Daily, # 30 tablet, Refills 0, Tot. Refills 0, Maintenance, 04/14/22 9:47:00 EST, Route to Pharmacy Electronically, [id number], Partial fill upon patient request [...] OrderedoxyCODONE 5 mg oral tablet 5 mg, Tablet, By Mouth, Every 6 hours, PRN for Pain , Severe, Routine, 04/13/22 17:42:00 EST Start Date: 04/13/22 Stop Date: 04/14/22 Status: DiscontinuedoxyCODONE 5 mg oral tablet 5 mg, 1, tablet, By Mouth, Every 12 hours, PRN, may take 2.5mg No driving [place] Pat reviewed, # 7 tablet, Refills 0, Tot. Refills 0, Maintenance, as needed for pain, 04/03/22 13:43:00 EST, Route to Pharmacy Electronically, [id number], Par... Start Date: 04/03/22 Status: [...] adenocarcinoma of upper lobe of left lung ([id number]) MDD (major depressive Confirmed Active disorder), recurrent episode, moderate Subclavian artery Confirmed Active stenosis, left Tubular adenoma of Confirmed Active colon Vertebral artery Confirmed Active occlusion 1neg stress [id number] Oswestry Disability Index: 58% (26/45; severe disability ); updated [place] Back Pain Disability Scale score: 71 both on 07/20/20 3initial Oswestry Disability Index: 62% ( crippled ) on 06/30/18; initial [place] Back Pain Scale: 81 on goal < 130 smoker, [id number] score 0.6 hip, 5.7 other Results Radiology Reports Exam Date Time Procedure Performing Provider Status 04/12/22 12:30 PM Chest Portable Kendall Kelly; Auth (Irene landin) Notes:(Chest Portable) Reason For Exam: CoughRESULT: Chest Portable Chest Portable AP upright Hx of Present Illness: Reports mid sternal CP since last night. Progressing. Hx of anxiety. Took ativan last night with no effect. 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 Reports CP 5 10.;Reason: Cough; Clinical Question(s): Pneumonia COMPARISON: 01/30/2022. FINDINGS: LINES AND TUBES: None. LUNGS AND PLEURA: Curvilinear area in the left mid lung may reflect atelectasis or scarring. No pulmonary vascular congestion. No pleural effusion. No pneumothorax. HEART, MEDIASTINUM AND KEYANNA: Heart is normal in size. Normal mediastinal and hilar contour. Vascular stent in the left upper mediastinum. BONES AND SOFT TISSUES: No acute abnormality. IMPRESSION: Curvilinear atelectasis or scarring involving the left mid lung. No pulmonary vascular congestion orfocal consolidation. WSN: [id number] Ordering Physician: Earnest Jones Dictated By: Siddhartha Bryant MD Dictated Date/Time: 04/12/22 1:11 pm Reviewed By: Siddhartha Bryant MD Signed By: Siddhartha Bryant MD Signed Date/Time: 04/12/22 1:11 pm Transcribed By: SHAHNAZ Transcribed Date/Time: 04/12/22 1:08 pm Vital Signs Most recent to oldest 1 2 3 [Reference Range]: Height 162 cm 162 cm 162 cm (04/14/22 9:12 AM) (04/14/22 5:43 AM) (04/14/22 12: 43 AM) Weight 71.1 kg 74 kg (04/12/22 5:56 PM) (04/12/22 11:31 AM) Oxygen Saturation [94-100 %] 94 % 98 % 96 % (04/14/22 8:00 AM) (04/14/22 5:43 AM) (04/14/22 12: 43 AM) Pulse Rate [55-90 bpm] 68 bpm 62 bpm 67 bpm (04/14/22 8:00 AM) (04/14/22 5:43 AM) (04/14/22 12: 43 AM) Body Mass Index [18.5-24.99 27.09 kg/m2 kg/m2] *H* (04/12/22 5:56 PM) Blood Pressure [90-138/55-84 145/58 mm Hg 140/54 mm Hg 136 /67 mm Hg mm Hg] *H* *H* (04/14/22 12:43 A M) (04/14/22 8:00 AM) (04/14/22 5:43 AM) Respiratory Rate [16-30 18 br/min 18 br/min 18 br/mi n br/min] (04/14/22 11:48 AM) (04/14/22 10:48 AM) (04/14/22 1 0:03 AM) Temperature [96.8-100.4 99.5 DegF 98.9 DegF 98.4 Deg F DegF] (04/14/22 8:00 AM) (04/14/22 5:43 AM) (04/14/22 12: 43 AM) Mode of Delivery (Oxygen) Room air Room air Room a ir (04/14/22 8:00 AM) (04/14/22 5:43 AM) (04/14/22 12: 43 AM) Blood pressure sites Arm, right Arm, right Arm, right (04/14/22 8:00 AM) (04/14/22 5:43 AM) (04/14/22 12: 43 AM) Temperature Route Oral Oral Oral (04/14/22 8:00 AM) (04/14/22 5:43 AM) (04/14/22 12: 43 AM) Dry Weight 71.1 kg 74 kg (04/12/22 5:56 PM) (04/12/22 11:31 AM) Weight Obtained Via Standing scale (04/12/22 5:56 PM) Social History Social History Type Response Smoking Status Use: 4 or less cigarettes(le ss than 1/4 pack)/day in last 30 days; Former smoker, quit more than 30 days ago; Other: QUIT 2 WEEKS AGO (01/17/2022); PRIOR TO THAT WAS ONLY 2-3 CIG/D X AGE 22; entered on: 01/31/22 Sex Admission evaluation note Berto WEAVER, Jignesh Salgado: MODIFY, PERFORM Event Display: Admission Note Authored Date: [id number] Patient: ??LY ROSSI ? Age:??67 Years?Sex:??Female?:??1955?? Chief Complaint/Reason for Consultation Chest pain 1 day duration History of Present Illness This is a 67-year-old female PMHx hypertension, hyperlipidemia, paroxysmal A. fib, primary adenocarcinoma of upper lobe of left lung, vertebral artery occlusion s/p stent placement with subsequent right femoral artery cutdown and repair of right proximal common femoral artery pseudoaneurysm, MDD, HAMIDA, chronic hyponatremia who presents to [facility] chief complaint chest pain 1 day duration.?? Patient states that she woke up at approximately 2:00 this morning with a chest pain that caused her immediate anxiety.?? Patient states she took Tylenol, oxycodone, Ativan with little to no relief of her symptoms.??States it was non-reproducible, radiated into her back and made her stomach feelall wormy .??She then presented via EMS for further evaluation.?? She received aspirin, nitro, fentanyl??en route to??ED.?? She denies any recent sick contacts no lightheadedness no dizziness no fever no chills no cough no shortness of breath no abdominal pain no vomiting no diarrhea no numbness/tingli ng bilateral lower extremity no new hot or cold intolerance no new rashes or skin lesions. ?? In the ED the patient was somewhat hypertensive BP 155/78, afebrile saturating 97% on room air without tachycardia or tachypnea.?? Labs overall unremarkable WBC 5.5, Hgb 12.1, sodium chronic low 128, chloride 94, bicarb 21, BUN 6, creatinine blood 0.5, NT proBNP 177, high-sensitivity troponin 8 with repeat 7.?? EKG showing normal sinus rhythm.?? Viral panel negative.?? Chest x-ray portable with curvilinear atelectasis or scarring involving left midlung with no vascular congestion or consolidation. ?? The patient received morphine, IVF in the ED and is to be admitted for ACS rule out. Review of Systems A complete review of systems performed and negative unless specified in HPI Objective Vital Signs?? Temperature: 97.8 DegF (04/12/22 11:31:00) Temperature Route: Oral (04/12/22 11:31:00) Pulse Rate: 66 bpm (04/12/22 14:00:00) Respiratory Rate: 18 br/min (04/12/22 14:47:00) Systolic Blood Pressure:??167 mm Hg??High (04/12/22 14:00:00) Diastolic Blood Pressure: 73 mm Hg (04/12/22 14:00:00) Mean Arterial Pressure: 104 mm Hg (04/12/22 11:31:00) Pulse Pressure: 94 mm Hg (04/12/22 14:00:00) Oxygen Saturation: 98 % (04/12/22 14:00:00) Mode of Delivery (Oxygen): Room air (04/12/22 14:00:00) ? Physical Exam Constitutional: Anxious appearing female lying in bed in NAD. Head: Normocephalic. Atraumatic. Eyes: PERRLA, EOMI. ??No scleral icterus. Ear, Nose and Throat: MMM. ??Trachea midline. ??Fair dentition. Neck: Supple, Full range of motion.no jugular venous distention Respiratory:??CTA bilaterally no wheezing, rales, rhonchi. Cardiovascular:??RRR no MRG. Gastrointestinal:??Abdomen soft, non-tender, non-distended.?? Active bowel sounds X4 quadrant. Extremities: Bilateral lower extremity without pitting edema. Neurologic:??Alert and oriented to person, place, time, situation. ??Cranial nerves II through XII grossly intact. ??Speech is normal, no facial droop. Skin:??No new rashes, lesions, ulcers. ??Warm, dry, intact. Musculoskeletal:??Muscle strength WNL bilateral upper and lower extremity.?? No gross deformities. Psychiatric: Normal mood and affect. Assessment/Plan This is a 67-year-old female PMHx hypertension, hyperlipidemia, paroxysmal A. fib, primary adenocarcinoma of upper lobe of left lung, vertebral artery occlusion s/p stent placement with subsequent right femoral artery cutdown and repair of pseudoaneurysm 2021, MDD, HAMIDA, chronic hyponatremia??who presents to [facility] chief complaint chest pain admitted for ACS rule out. ?? Diagnoses Chest pain ??(R07.9) EKG showing normal sinus rhythm. ??Initial troponin 8, repeat 7.?? Will admit patient to telemetry.?? CXR negative. ?? Paroxysmal A-fib ??(I48.0) EKG showing NSR. ??Continue Eliquis. ??No longer on diltiazem given hypotension. ?? Chronic hyponatremia ??(E87.1) 128 on admission.?? Known hyponatremia. ??We will recheck in AM. ??S/p IVF. ?? HAMIDA (generalized anxiety disorder) ??(F41.1) MDD (major depressive disorder) ??(F32.9) Continue venlafaxine ?? Hyperlipemia ??(E78.5) Continue statin ?? Hypertension ??(I10) Not on any medications, previously on amlodipine and diltiazem. ??Monitor. ??Somewhat hypertensive on presentation to ED. ?? Lung cancer, upper lobe ??(C34.10) S/p radiation??03/08 ?? Diet: Cardiac CODE STATUS:??Full code DVT prophylaxis: Eliquis ?? Histories Allergies Allergies ?(Active and Proposed Allergies [...] rash ? Past Medical History/Problem List Active Problems??(33) Antiplatelet or antithrombotic long-term use Bruit of left carotid artery Chest pain [...] radiculitis Lumbosacral spondylosis without myelopathy Macular degeneration MDD (major depressive disorder), recurrent episode, moderate Median nerve compression, left Myofascial pain syndrome, diffuse Osteopenia Overweight (BMI 25.0-29.9) Paroxysmal atrial flutter Primary adenocarcinoma of upper lobe of left lung ([id number]) Subclavian artery stenosis, left Tubular adenoma of colon Vascular bruit overarea of subclavian arteries L & R Vertebral artery occlusion ? Past Surgical History Right femoral artery cutdown and repair of the right proximal common femoral artery pseudoaneurysm evacuation of the hematoma.: 03/11/22 Colonoscopy and extirpation of lesion of colon: [...] Cancer of lung ? Medications Home Medications Acetaminophen (acetaminophen 325 mg oral tablet)?650?Milligram?2?tablet?By Mouth?3 times a day?as needed?pain/fever apixaban (Eliquis 5 mg oral tablet)?1?tab(s)?5?Milligram?By Mouth?2 times a day Atorvastatin (atorvastatin 10 mg oral tablet)?1?tab(s)?10?Milligram?By Mouth?Daily at bedtime Gabapentin (gabapentin 100 mg oral capsule)?100?Milligram?1?capsule?By Mouth?3 times a day Gabapentin (gabapentin 100 mg oral capsule)?100?Milligram?1?capsule?By Mouth?3 times a day?Patient to get refills from the primary care physician Hydroxypropyl Methylcellulose Ophthalmic (Artificial Tears 0.5% Ophth)?See Instructions?prn for dryness Lorazepam (LORazepam 0.5 mg oral tablet)?1?tab(s)?0.5?Milligram?By Mouth?2 times a day?as needed?as needed for anxiety Oxycodone (oxyCODONE 5 mg oral tablet)?5?Milligram?1?tablet?By Mouth?Every 12 hours?as needed?may take 2.5mgNo drivingMass Pat reviewed?as needed for pain Polyethylene Glycol 3350 (MiraLax Powder)?1?pack/packet?17?gram?By Mouth?Daily Senna (Senna 8.6 mg oral tablet)?8.6?Milligram?1?tab(s)?By Mouth?Daily at bedtime Venlafaxine (Effexor XR 37.5 mg oral capsule, extended release)?37.5?Milligram?1?capsule?By Mouth?Daily ? Inpatient Medications Medications (10) Active SCHEDULED: (1) NaCl 0.9% Flush 3ml (NaCL 0.9% Flush) ??3 mL, IV Push, Every 8 hours CONTINUOUS: (0) PRN: (9) Acetaminophen 325 mg Tablet (Acetaminophen Tablet) ??650 mg, By Mouth, Every 4 hours Al hydroxide/Mg hydroxide/simethicone 200 mg-200 mg-20 mg/5 mL Susp UD (Maalox Plus Liquid) ??15 mL, By Mouth, 4 times a day Dextromethorphan-Guaifenesin 20 mg-200 mg/10 mL Liqu UD (Robitussin DM Liquid) ??10 mL, By Mouth, Every 4 hours Lorazepam 2 mg Inj Syringe (LORazepam Inj) ??1 mg, IV Push Slowly, Every 6 hours Melatonin 3 mg Tablet (Melatonin Tablet) ??3 mg, By Mouth, Daily at bedtime NaCl 0.9% Flush 3ml (NaCL 0.9% Flush) ??3 mL, IV Push, Every 8 hours Polyethylene Glycol 17 Gm Powder (MiraLax Powder) ??17 Gm 1 pack/packet, By Mouth, Daily Senna 8.6 mg / Docusate 50 mg tablet (Docusate/Senna Tablet) ??1 tablet, By Mouth, 2 times a day Simethicone 80 mg Chewable Tablet (Simethicone Tablet) ??80 mg, Chew, 3 times a day ? Results Recent Labs BLOOD COUNT & DIFF WBC 5.5 k/mm3 ()?? 04/12/2022 11:52 RBC 3.60 m/mm3 (Low)?? 04/12/2022 11:52 Hgb 12.1 Gm/dL ()?? 04/12/2022 11:52 Hct 35.4 % (Low)?? 04/12/2022 11:52 MCV 98.3 femtoliters ()?? 04/12/2022 11:52 MCH 33.6 pg ()?? 04/12/2022 11:52 MCHC 34.2 g/dL ()?? 04/12/2022 11:52 Platelet Count 252 k/mm3 ()?? 04/12/2022 11:52 RDW-SD 51.8 femtoliters (High)?? 04/12/2022 11:52 MPV 8.7 femtoliters (Low)?? 04/12/2022 11:52 Nucleated RBC (Automated) 0.0 #/100 WBC'S ()?? 04/12/2022 11:52 Abs. NRBC 0.0 k/mm3 ()?? 04/12/2022 11:52 Abs. Neut 3.3 k/mm3 ()?? 04/12/2022 11:52 Abs. Lymph 1.8 k/mm3 ()?? 04/12/2022 11:52 Abs. [place] 0.4 k/mm3 ()?? 04/12/2022 11:52 Abs. Eo 0.0 k/mm3 ()?? 04/12/2022 11:52 Abs. Baso 0.0 k/mm3 ()?? 04/12/2022 11:52 Neut % 59.1 % ()?? 04/12/2022 11:52 Lymph % 32.2 % ()?? 04/12/2022 11:52 [place] % 7.1 % ()?? 04/12/2022 11:52 Eos % 0.7 % ()?? 04/12/2022 11:52 Baso % 0.5 % ()?? 04/12/2022 11:52 Imm Gran 0.4 % ()?? 04/12/2022 11:52 Abs. Imm Gran 0.0 k/mm3 ()?? 04/12/2022 11:52 ?? CARDIAC Nt-Probnp 177 pg/mL (High)?? 04/12/2022 11:54 High Sensitivity Troponin (HSTnT) 7 ng/L ()?? 04/12/2022 13:54 ?? CHEM GENERAL Sodium 128 mmol/L (Low)?? 04/12/2022 11:52 Potassium 4.3 mmol/L ()?? 04/12/2022 11:52 Chloride 94 mmol/L (Low)?? 04/12/2022 11:52 Bicarbonate Level 21 mmol/L (Low)?? 04/12/2022 11:52 Anion Gap 13 ()?? 04/12/2022 11:52 Glucose Level 94 mg/dL ()?? 04/12/2022 11:52 BUN 6 mg/dL (Low)?? 04/12/2022 11:52 Creatinine-Blood 0.5 mg/dL ()?? 04/12/2022 11:52 Estimated GFR Creatinine 102 ML/MIN/1.73 M2 ()?? 04/12/2022 11:52 Calcium 9.2 mg/dL ()?? 04/12/2022 11:52 ?? HEME OTHER Hold Blue Top SPECIMEN DISCARDED AFTER 4 HOURS. ()?? 04/12/2022 11:52 ?? MISC. CHEMISTRY Hold Gel Top SPECIMEN DISCARDED AFTER 1 WEEK ()?? 04/12/2022 11:52 ?? VIROLOGY Influenza A PCR NEGATIVE ()?? 04/12/2022 12:03 Influenza B PCR NEGATIVE ()?? 04/12/2022 12:03 RSV PCR NEGATIVE ()?? 04/12/2022 12:03 COVID-19 PCR Specimen Source NASAL ()?? 04/12/2022 12:03 COVID-19 PCR Result NEGATIVE ()?? 04/12/2022 12:03 ? Urinalysis?? No qualifying data available. ? EKG study Event Display: ECG 12-Lead Authored Date: Please click on pdf link to open report Event Display: ECG 12-Lead Authored Date: Ventricular Rate: 71 BPM Atrial Rate: 71 BPM P-R Interval: 166 ms QRS Duration: 82 ms Q-T Interval: 396 ms QTC Calculation(Bazett): 430 ms P Seaman: 51 degrees R Seaman: 45 degrees T Seaman: 51 degrees Normal sinus rhythm Normal ECG When compared with ECG of 12-APR-2022 11:42, T wave inversion no longer evident in Anterior leads Confirmed by [facility] ([id number] on 04/13/2022 4:58:07 PM [place]: NICK SHARPE,[facility] Progress note Doris Negron RN: PERFORM, SIGN, VERIFY Event Display: Progress [facility] Authored Date: Patient: LY ROSSI Age: 67 years Sex: Female : 1955 Associated Diagnoses: None Author: Doris Negron RN Findings Problem Related to Alteration in Cardiac Function (new) : Alteration in Cardiac Function/new 04/14/2022 9:00 EST Alteration in Cardiac Status Related to Chest pain, Other: Positive Orthoatatic BP Goals & Outcomes, Cardiac Status Pt will resume/maintain adequate cardiac output, Pt will resume/maintain adequate hemodynamic status, Pt will resume/maintain adequate respiratory function, Pt will resume/maintain intact neuro function, Pt will maintain adequate GI/ function appropriate for pt,Pt will maintain adequate nutrition status, Pt/caregiver will state understanding of diagnosis, Pt/caregiver will state strategies to reduce risk factors Cardiac Interventions Implemented Assess/monitor cardiac status, Assess/monitor neuro status, Assess for chest pain, document characteristics, Monitor for anxiety, shortness of breath, diaphoresis BH Goals/Interventions, Cardiac Yes Cardiac, Problem Start 04/12/2022 18:11 Reviewed Plan with, Cardiac Status Patient Patient Progression, Cardiac Status Patient progressing according to plan Comment: Cardiac Status orthostatic vitals signs . Alteration in Safety : Alteration in Safety/new 04/14/2022 9:00 EST Alteration in Safety Related to Other: fall risk Goals & Outcomes, Safety Psychosocial support will be provided to Pt/S.O. as needed, Pt/caregiver will state understanding of plan/goals of care, Pt will remain safe & injury free, Pt/caregiver will be offered appropriate resources & support, Pt/caregiver will verbalize understanding of the D/C plan Interventions, Safety Provide info on community resources for education, support, Provide teaching as needed BH Goals/Interventions, Safety Yes Safety, Problem Start 04/13/2022 18:16 Reviewed plan with, Safety Patient Patient Progression, Safety Pt progressing according to plan Comment: Safety high falls protocol . Falls Risk Assessment : Falls Data 04/14/2022 7:13 EST Fall Elimination No impairment Fall Agitation/Anxiety/Depression No impairment Fall Related Sign/Symptom/Condition Dizziness Plan:Fall Related Sign/Symptom/Condition Inform MD of signs & symptoms patient is experiencing,Collaborate with MD to manage signs & symptoms, Monitor & record blood pressure, both lying & sitting Fall Cognitive Limitations No impairment Fall Sensory and Physical Function No impairment Fall High Risk for Injury None of the above Total Falls Risk Score 5 Fall Risk Level High Risk Falls Prevention Plan for High Risk Fall risk decal outside of patient's room, Apply yellow high fall risk wrist band to wrist, Ensure patient has yellow non- skid slippers, Evaluate footwear & ensure patient has non-skid slippers, Activate alternate alarm: bed (i.e. TABS), Activate alternate alarm: chair (i.e. TABS, [place]), Check that needs are met to minimize attempts to get up, Hourly rounds,Ensure safe & uncluttered environment . Nursing Data Cardiac Data. : Cardiac Data. 04/14/2022 7:14 EST Cardiac Rhythm Normal sinus rhythm etl analyst developer Yes Cardiovascular WNL except . Vital Signs : VITAL SIGNS SECTION 04/14/2022 9:12 EST Pulse Rate, Lying 75 bpm Systolic Blood Pressure, Lying 152 mm Hg Diastolic Blood Pressure, Lying 62 mm Hg Pulse Rate, Sitting 76 bpm Systolic Blood Pressure, Sitting 149 mm Hg Diastolic Blood Pressure, Sitting 83 mm Hg Pulse Rate, Standing 88 bpm Systolic Blood Pressure, Standing 142 mm Hg Diastolic Blood Pressure, Standing 79 mm Hg . Evaluation patient is alert and oriented . up to bathroom with steady gait denies dizziness or chest pain orhtho vitals done per md order plan for dc home today medicated with tylenol for back discomfort with good effect. Discharge Information Case Management Discharge Plan : Case Management Discharge Plan Data 04/13/2022 11:28 EST Discharge Level of Care at Discharge Not Done: discharge canceled (Not Done)Wai Mendoza RN: MODIFY, MODIFY, SIGN, VERIFY, PERFORM Event Display: Progress Note Hospital Authored Date: Patient: LY ROSSI Age: 67 years Sex: Female : 1955 Associated Diagnoses: None Author: Wai Mendoza RN Findings Problem Related to Alteration in Cardiac Function (new) : Alteration in Cardiac Function/new 04/14/2022 2:00 EST Alteration in Cardiac Status Related to Chest pain, Other: Positive Orthoatatic BP (Modified) Goals & Outcomes, Cardiac Status Pt will resume/maintain adequate cardiac output, Pt will resume/maintain adequate hemodynamic status, Pt will resume/maintain adequate respiratory function, Pt will resume/maintain intact neuro function, Pt will maintain adequate GI/ function appropriate for pt,Pt will maintain adequate nutrition status, Pt/caregiver will state understanding of diagnosis, Pt/caregiver will state strategies to reduce risk factors Cardiac Interventions Implemented Assess/monitor cardiac status, Assess/monitor neuro status, Assess/monitor respiratory status, Document & Monitor O2 Sats; Administer O2 as ordered, Teach/encourage deep breath & cough exercises BH Goals/Interventions, Cardiac Yes Cardiac, Problem Start 04/12/2022 18:11 Reviewed Plan with, Cardiac Status Patient Patient Progression, Cardiac Status Patient progressing according to plan . Alteration in Safety : Alteration in Safety/new 04/14/2022 2:00 EST Alteration in Safety Related to Other: fall risk Goals & Outcomes, Safety Psychosocial support will be provided to Pt/S.O. as needed, Pt/caregiver will state understanding of plan/goals of care, Pt will remain safe & injury free, Pt/caregiver will be offered appropriate resources & support, Pt/caregiver will verbalize understanding of the D/C plan Interventions, Safety Provide teaching as needed Goals/Interventions, Safety Yes Safety, Problem Start 04/13/2022 18:16 Reviewed plan with, Safety Patient Patient Progression, Safety Pt progressing according to plan . Evaluation pt alert and oriented x4. Denied chest pain, sob or dizziness. Lungs CTA. Tylenol and Oxycodone given for pain management to lower back. IVF 0.9%NS running at 100ml/h. pt c/o increasing anxiety and Ativan given as order with good outcomes. Appeared comfortable in bed at the moment. TAB alarm on. Hourly rounds maintained. . Discharge Information Case Management Discharge Plan : Case Management Discharge Plan Data 04/13/2022 11:28 EST Discharge Level of Care at Discharge Not Done: discharge canceled (Not Done)Yudelka Rodriguez RN: VERIFY, PERFORM, SIGN Event Display: Progress Note Hospital Authored Date: [id number] Patient: LY ROSSI Age: 67 years Sex: Female : 1955 Associated Diagnoses: None Author: Yudelka Rodriguez RN Findings Problem Related to Alteration in Cardiac Function (new) : Alteration in Cardiac Function/new 04/13/2022 18:00 EST Alteration in Cardiac Status Related to Chest pain Goals & Outcomes, Cardiac Status Pt will resume/maintain adequate cardiac output, Pt will resume/maintain adequate hemodynamic status, Pt will resume/maintain adequate respiratory function, Pt will resume/maintain intact neuro function, Pt will maintain adequate GI/ function appropriate for pt,Pt will maintain adequate nutrition status, Pt/caregiver will state understanding of diagnosis, Pt/caregiver will state strategies to reduce risk factors Cardiac Interventions Implemented Assess/monitor cardiac status, Assess/monitor neuro status, Assess/monitor respiratory status, Assess for tolerance of IV infusions; verify rate & dose, Call/Report variances in ECG to provider, Document & Monitor O2 Sats; Administer O2 as ordered, Ensure adequate caloric intake, If no bowel movement in 3 days activate bowel regime, Monitor & document daily weight, Monitor anticoagulation values, Monitor ECG w/administration of antiarrhythmics (CO 13.420), Obtain 12 Lead ECG and CXR as ordered, Prep pt for treatments & procedures, Teach/encourage deep breath & cough exercises, Teach/encourage use of incentive spirometer, Team conversation regarding appropriate level of care, Turn & reposition Q2 hours per activity restrictions, Use adjunctive therapies per Standards of Practice Goals/Interventions, Cardiac Yes Cardiac, Problem Start 04/12/2022 18:11 Reviewed Plan with, Cardiac Status Patient Patient Progression, Cardiac Status Plan Initiation . Alteration in Safety : Alteration in Safety/new 04/13/2022 18:00 EST Alteration in Safety Related to Other: fall risk Goals & Outcomes, Safety Psychosocial support will be provided to Pt/S.O. as needed, Pt/caregiver will state understanding of plan/goals of care, Pt will remain safe & injury free, Pt/caregiver will be offered appropriate resources & support, Pt/caregiver will verbalize understanding of the D/C plan Interventions, Safety Provide info on community resources for education, support, Provide teaching as needed BH Goals/Interventions, Safety Yes Safety, Problem Start 04/13/2022 18:16 Reviewed plan with, Safety Patient Patient Progression, Safety Pt progressing according to plan Comment: Safety TAB's alarm in place . Nursing Data Cardiac Data. : Cardiac Data. 04/13/2022 17:00 EST Cardiovascular Assessment Status Unchanged from recorder's assessment 04/13/2022 14:00 EST Cardiovascular Assessment Status Unchanged from recorder's assessment 04/13/2022 10:05 EST Cardiovascular Symptoms Chest pain, Chest pressure Nail Bed Color, Fingers Old Agency Nail Bed Color, Toes Old Agency Skin Temperature Upper Extremities Warm, Dry Skin Temperature Lower Extremities Warm, Dry Heart Sounds S1, S2 Cardiac Rhythm Normal sinus rhythm Radial Pulse, Left Weak Radial Pulse, Right Weak Dorsalis Pedis Pulse, Left Weak Dorsalis Pedis Pulse, Right Weak etl analyst developer Yes Cardiovascular WNL except . Gastrointestinal Data. : Gastrointestinal Data. 04/13/2022 17:00 EST Gastrointestinal Assessment Status Unchanged from recorder's assessment 04/13/2022 14:00 EST Gastrointestinal Assessment Status Unchanged from recorder's assessment 04/13/2022 10:05 EST Gastrointestinal Symptoms None Abdomen Soft, Round Bowel Sounds LUQ Present Bowel Sounds RUQ Present Bowel Sounds LLQ Present Bowel Sounds RLQ Present GI WNL except Normal Bowel Pattern Daily . Genitourinary Data. : Genitourinary Data. 04/13/2022 17:00 EST Genitourinary Assessment Status Unchanged from recorder's assessment 04/13/2022 14:00 EST Genitourinary Assessment Status Unchanged from recorder's assessment 04/13/2022 10:05 EST WNL . HEENT Data. : HEENT Assessment 04/13/2022 10:05 EST HEENT, Adult WNL except Eye Symptoms, Adult Blurred vision Voice, Adult Clear Swallow - Mucositis, Adult No symptoms Lips Appearance, Adult Smooth/Old Agency/Moist Tongue Appearance, Adult Old Agency/Moist/Papillae Present . Integumentary Data. : Integumentary Data. 04/13/2022 17:00 EST Integumentary Assessment Status Unchanged from recorder's assessment 04/13/2022 14:00 EST Integumentary Assessment Status Unchanged from recorder's assessment 04/13/2022 10:05 EST Skin Abnormality Dry Skin Color Normal for ethnicity Skin Integrity Intact Sensory Perception Slightly limited Sensory Perception Slightly limited Moisture Rarely moist Activity Chairfast Activity Chairfast Mobility Slightly limited Mobility Slightly limited Nutrition Adequate Friction and Shear Potential problem Kishore Score 17 Nursing Care Plan initiated/updated Not applicable Wound Location I Groin, right Integumentary WNL except . Musculoskeletal Data. : Musculoskeletal Data. 04/13/2022 17:00 EST Musculoskeletal Assessment Status Unchanged from recorder's assessment 04/13/2022 14:00 EST Musculoskeletal Assessment Status Unchanged from recorder's assessment 04/13/2022 10:05 EST Musculoskeletal Symptoms Weakness Musculoskeletal WNL except . Neurological Data. : Neurological Data. 04/13/2022 17:45 EST Pain Intensity 7 04/13/2022 17:25 EST Pain Intensity 7 04/13/2022 17:00 EST Neurological Assessment Status Unchanged from recorder's assessment 04/13/2022 16:25 EST Pain Intensity 7 04/13/2022 14:00 EST Neurological Assessment Status Unchanged from recorder's assessment 04/13/2022 13:36 EST Pain Intensity 1 04/13/2022 12:36 EST Pain Intensity 4 04/13/2022 11:28 EST Discharge Time Not Done: discharge canceled (Not Done) 04/13/2022 10:10 EST Pain Intensity 2 04/13/2022 10:05 EST Neurological Symptoms Dizziness, Double vision Level of Consciousness Full Consciousness Orientated to person, place, time Person, Place, Event Hallucinations None Facial Symmetry Intact Characteristics of Speech Clear and normal Strength LUE 5-Active movement against gravity & full resistance Strength RUE 5-Active movement against gravity & full resistance Strength LLE 5-Active movement against gravity & full resistance Strength RLE 5-Active movement against gravity & full resistance Sensation LUE Intact Sensation RUE Intact Sensation LLE Intact Sensation RLE Intact Movement LUE Spontaneous Movement RUE Spontaneous Movement LLE Spontaneous Movement RLE Spontaneous Gait Unsteady Response Eye Opening Spontaneously Motor Response-Adult Obeys commands Verbal Response-Adult Oriented and converses [place] Coma Score 15 Pain Intensity 5 1 - 10 Pain Scale Score 5 Neuro WNL except Eyes and Movements Conjugate gaze: Move in same direction at same speed Memory Intact Swallow - Neuro Normal . Respiratory/Pulmonary Data. : Respiratory/Pulmonary Data. 04/13/2022 17:00 EST Respiratory Assessment Status Unchanged from recorder's assessment 04/13/2022 16:30 EST Mode of Delivery (Oxygen) Room air 04/13/2022 14:00 EST Respiratory Assessment Status Unchanged from recorder's assessment 04/13/2022 11:00 EST Mode of Delivery (Oxygen) Room air 04/13/2022 10:05 EST Respiratory Symptoms None Respiratory effort Unlabored Chest expansion Symmetrical Accessory Muscles use No Cough No cough Respiratory pattern Regular Left Upper Lobe Breath Sounds Clear Right Upper Lobe Breath Sounds Clear Right Middle Lobe Breath Sounds Clear Left Lower Lobe Breath Sounds Clear Right Lower Lobe Breath Sounds Clear Respiratory distress None Respiratory WNL except 04/13/2022 9:00 EST Mode of Delivery (Oxygen) Room air 04/13/2022 7:50 EST Mode of Delivery (Oxygen) Room air 04/13/2022 7:08 EST Respiratory Treatment(s) Incentive spirometry . Vital Signs : VITAL SIGNS SECTION 04/13/2022 17:45 EST Early Warning Score 5.00 04/13/2022 17:45 EST Respiratory Rate 18 br/min 04/13/2022 17:41 EST Early Warning Score 5.00 04/13/2022 17:25 EST Respiratory Rate 18 br/min 04/13/2022 16:31 EST Early Warning Score 5.00 04/13/2022 16:30 EST Temperature 97.6 DegF Temperature Route Oral Pulse Rate 69 bpm Respiratory Rate 18 br/min Systolic Blood Pressure 165 mm Hg H Diastolic Blood Pressure 63 mm Hg Blood pressure sites Arm, left Mean Arterial Pressure 97 mm Hg Pulse Pressure 102 mm Hg Oxygen Saturation 95 % Mode of Delivery (Oxygen) Room air 04/13/2022 14:31 EST Early Warning Score 1.00 04/13/2022 13:36 EST Respiratory Rate 18 br/min 04/13/2022 11:01 EST Early Warning Score 1.00 04/13/2022 11:00 EST Early Warning Score 1.00 04/13/2022 11:00 EST Temperature 98.0 DegF Temperature Route Oral Pulse Rate 73 bpm Pulse Rate, Lying 73 bpm Systolic Blood Pressure, Lying 134 mm Hg Diastolic Blood Pressure, Lying 66 mm Hg Pulse Rate, Sitting 77 bpm Systolic Blood Pressure, Sitting 149 mm Hg Diastolic Blood Pressure, Sitting 76 mm Hg Pulse Rate, Standing 86 bpm Systolic Blood Pressure, Standing 127 mm Hg Diastolic Blood Pressure, Standing 78 mm Hg Respiratory Rate 18 br/min Systolic Blood Pressure 134 mm Hg Diastolic Blood Pressure 66 mm Hg Blood pressure sites Arm, right Mean Arterial Pressure 89 mm Hg Pulse Pressure 68 mm Hg Oxygen Saturation 96 % Mode of Delivery (Oxygen) Room air 04/13/2022 10:42 EST Early Warning Score 1.00 04/13/2022 10:10 EST Respiratory Rate 18 br/min 04/13/2022 9:52 EST Early Warning Score 1.00 04/13/2022 9:00 EST Pulse Rate 73 bpm Systolic Blood Pressure 118 mm Hg Diastolic Blood Pressure 62 mm Hg Blood pressure sites Arm, right Pulse Pressure 56 mm Hg Oxygen Saturation 98 % Mode of Delivery (Oxygen) Room air 04/13/2022 7:52 EST Early Warning Score 3.00 04/13/2022 7:50 EST Temperature 98.1 DegF Temperature Route Oral Pulse Rate 78 bpm Respiratory Rate 18 br/min Systolic Blood Pressure 143 mm Hg H Diastolic Blood Pressure 61 mm Hg Blood pressure sites Arm, right Mean Arterial Pressure 88 mm Hg Pulse Pressure 82 mm Hg Oxygen Saturation 94 % Mode of Delivery (Oxygen) Room air . Evaluation A/O x4. Speech clear, able to make needs known. Lung sounds clear, on room air. MP shows SR with HR 60's. Palpable pulses, no edema noted. Patient c/o 5/10 Chest pain, and dizziness. MD Dominik Glaser made aware. PRN Ativan, SL nitroglycerin and EKG's completed per orders. Orthostatics blood pressures done per orders. NS infusing at 100 mL/hr per orders. Patient c/o back pain, PRN Tylenol and oxycodone given per orders. Patient one assist OOB to bathroom. Patient ambulated in corridor with PCT twice today with no issues. Safety measures maintained, non-skid footwear applied, TAB's alarm in place and call ulloa within reach. . Note Migdalia GIRON, Doris: PERFORM Event Display: Discharge/Transfer Note Hospital Authored Date: [id number] Nursing Discharge Note Entered On: 04/14/2022 11:29 EST Performed On: 04/14/2022 11:28 EST by Doris Negron RN Nursing Discharge Note 2 Discharge Time : 04/14/2022 11:28 EST Discharge Level of Care at Discharge : Home/Alf/Foster Care Patient Left Unit Via : Wheelchair Patient Accompanied Off Unit with : Significant other DC Instructions Provided & Signed by Pt : Yes Patient Understands D/C Instructions : Yes Patient Instructions Discharge Signed : Yes Did Pt have Specialty Bed or Wound Vac : No Doris Negron RN - 04/14/2022 11:28 ESTKeith Morris DO: PERFORM, MODIFY, MODIFY Event Display: Discharge/Transfer Note Hospital Authored Date: [id number] Patient: ??LY ROSSI ? Age:??67 Years?Sex:??Female?:??1955?? Patient Information Discharge Location: Med Surg Primary Care Physician: Kelsie Oliver Admit Date/Time: 04/13/22 11:38 Discharge Disposition Discharge Disposition: Home: No Services Discharge Diagnosis Chest pain (R07.9) Chronic hyponatremia (E87.1) HAMIDA (generalized anxiety disorder) (F41.1) Hyperlipemia (E78.5) Hypertension (I10) Lung cancer, upper lobe (C34.10) MDD (major depressive disorder) (F32.9) Orthostatic hypotension (I95.1) Paroxysmal A-fib (I48.0) _ Discharge Medications Amlodipine (amLODIPine 2.5 mg oral tablet)?2.5?Milligram?1?tablet?By Mouth?Daily apixaban (Eliquis 5 mg oral tablet)?1?tab(s)?5?Milligram?By Mouth?2 times a day Atorvastatin (atorvastatin 10 mg oral tablet)?1?tab(s)?10?Milligram?By Mouth?Dailyat bedtime Lorazepam (LORazepam 0.5 mg oral tablet)?1?tab(s)?0.5?Milligram?By Mouth?2 times aday?as needed?as needed for anxiety Oxycodone (oxyCODONE 5 mg oral tablet)?5?Milligram?1?tablet?By Mouth?Every 12 hours?as needed?may take 2.5mgNo drivingMass Pat reviewed?as needed for pain Pantoprazole (pantoprazole 40 mg oral delayed release tablet)?40?Milligram?By Mouth?Daily?for 30?Days Polyethylene Glycol 3350 (MiraLax Powder)?1?pack/packet?17?gram?By Mouth?Daily Senna (Senna 8.6 mg oral tablet)?8.6?Milligram?1?tab(s)?By Mouth?Daily at bedtime Venlafaxine (Effexor XR 37.5 mg oral capsule, extended release)?37.5?Milligram?1?capsule?By Mouth?Daily ? Durable Medical Equipment Discharge recommendations: Rehab (03/13/22) Name of Agency #1: [facility] (03/15/22) Agency Super[facility] [employer] [facility]: intake (09/15/21) Service Categories #1: Occupational Therapy, Physical Therapy, [facility] (03/15/22) Service Start Date and Time #1: 03/15/22 15:30:00 (03/15/22) Service Comments #1: you are being discahrged to [facility] rehab today, [facility] will transport via ambulance. (03/10/22) Ambulatory devices needed: None (04/13/22) ? Medications Started Amlodipine Pantoprazole Medications Discontinued None Doses Changed None Allergies Allergies ?(Active and Proposed Allergies Only) [...] Unknown severity, Onset: Unknown) ?Reactions: rash ? Future Appointments Saturday 12:45 PM EST ?? With: Sean BLANCHARD, Marah Nolan Where: [facility] [address] [place] [address]- Saturday 2:30 PM EST ?? With: Ryan BLANCHARD, Paula Nolan Where: [facility] [address] [place] [address]- Hospital Course History of Present Illness This is a 67-year-old female PMHx hypertension, hyperlipidemia, paroxysmal A. 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 Patient states that she woke up at approximately 2:00 this morning with a chest pain that caused her immediate anxiety. Patient states she took Tylenol, oxycodone, Ativan with little to no relief of her symptoms. States it was non-reproducible, radiated into her back and made her stomach feel all wormy . She then presented via EMS for further evaluation. She received aspirin, nitro, fentanyl en route to ED. She denies any recent sick contacts no lightheadedness no dizziness no fever no chills no cough no shortness of breath no abdominal pain no vomiting no diarrhea no numbness/tingling bilaterallower extremity no new hot or cold intolerance no new rashes or skin lesions. ?? In the ED the patient was somewhat hypertensive BP 155/78, afebrile saturating 97% on room air without tachycardia or tachypnea. Labs overall unremarkable WBC 5.5, Hgb 12.1, sodium chronic low 128, chloride 94, bicarb 21, BUN 6, creatinine blood 0.5, NT proBNP 177, high-sensitivity troponin 8 with repeat 7. EKG showing normal sinus rhythm. Viral panel negative. Chest x-ray portable with curvilinear atelectasis or scarring involving left midlung with no vascular congestion or consolidation. ?? The patient received morphine, IVF in the ED and is to be admitted for ACS rule out. ?? Objective Assessment and Plan Orthostatic hypotension ??(I95.1): Patient complained of dizziness especially with standing. Orthostatic vital signs showed sitting her blood pressure was 149/76 and standing 127/78. She was administered a 1L bolus of NS and started on NS@100cc/h. Repeat orthostats prior to discharge were negative. She was instructed to eat and drink adequately. Patient to f/u with her primary care provider in 1 week if possible. ?? Chest pain ??(R07.9) The patient presented with a 1 day history of chest pain that resolved by the time she reached the hospital. EKG showed normal sinus rhythm without acute ST changes.??Initial troponin was 8 and??repeatwas 7, which ruled out ACS. CXR showed no acute process, and she remained in normal sinus rhythm on telemetry. The following morning she had a repeat episode of chest pain that did not resolve with nitro or ativan. EKG showed normal sinus rhythm without acute ST changes, troponin of 9,??while remaining in sinus rhythm on telemetry. The case was discussed with Marah Estrada as she has an appointmenton Saturday with no further tests needed. Prior to discharge her chest pain is resolved. I do not feelthat this is cardiac in nature, but perhaps related to anxiety or GERD. She has been started on 40mgof pantoprazole. ?? Paroxysmal A-fib ??(I48.0) Continue Eliquis. She is no longer on diltiazem given previous??hypotension. ?? Chronic hyponatremia ??(E87.1) The patient has chronic hyponatremia with sodium of 128 on admission.??After IVF her sodium is 131 at discharge. She is asymptomatic. ?? HAMIDA (generalized anxiety disorder) ??(F41.1) MDD (major depressive disorder) ??(F32.9) Continue venlafaxine ?? Hyperlipemia ??(E78.5) Continue statin ?? Hypertension ??(I10) Patient with a history of HTN previously on amlodipine and diltiazem. Due to a history of hypotension, she is not on any medications; however,??on multiple occasions throughout the day she is in the 140's-160's. Although this could be related to pain??or anxiety, she was started on very low dose 2.5mgof amlodipine daily.??She will take her pressures first thing when waking up and right before bed.??This can be followed by her primary care provider ?? Lung cancer, upper lobe ??(C34.10) S/p radiation??on 03/08. Patient to f/u with oncology as scheduled.? Vital Signs?? Temperature: 99.5 DegF (04/14/22 08:00:00) Temperature Route: Oral (04/14/22 08:00:00) Pulse Rate: 68 bpm (04/14/22 08:00:00) Pulse Rate, Lyin bpm (04/14/22 09:12:00) Systolic Blood Pressure, Lyin mm Hg (04/14/22 09:12:00) Diastolic Blood Pressure, Lyin mm Hg (04/14/22 09:12:00) Pulse Rate, Sittin bpm (04/14/22 09:12:00) Systolic Blood Pressure, Sittin mm Hg (04/14/22 09:12:00) Diastolic Blood Pressure, Sittin mm Hg (04/14/22 09:12:00) Pulse Rate, Standin bpm (04/14/22 09:12:00) Systolic Blood Pressure, Standin mm Hg (04/14/22 09:12:00) Diastolic Blood Pressure, Standin mm Hg (04/14/22 09:12:00) Respiratory Rate: 18 br/min (04/14/22 08:00:00) Systolic Blood Pressure:??145 mm Hg??High (04/14/22 08:00:00) Diastolic Blood Pressure: 58 mm Hg (04/14/22 08:00:00) Blood pressure sites: Arm, right (04/14/22 08:00:00) Mean Arterial Pressure: 83 mm Hg (04/14/22 05:43:00) Pulse Pressure: 86 mm Hg (04/14/22 05:43:00) Oxygen Saturation: 94 % (04/14/22 08:00:00) Mode of Delivery (Oxygen): Room air (04/14/22 08:00:00) Early Warning Score: 3 (04/14/22 08:12:42) ? . Physical Exam Constitutional: Alert, in no acute distress Head: Normocephalic, atraumatic Eyes: EOMI, no pallor or scleral icterus Ear, Nose and Throat: mucous membranes moist Respiratory: Clear to auscultation b/l without wheezes, rales or rhonchi. Cardiovascular: Regular rate and rhythm, no rubs, murmurs or gallops. Gastrointestinal: Abdomen soft, non-tender, non-distended. Normal bowel sounds. Extremities: No lower extremity pitting edema. No cyanosis or clubbing. Neurologic: AAOx3, Cranial nerves II-XII grossly intact. Psychiatric:??Appropriate mood and affect. Pending Results No Pending Results Follow-Up Appointments Added Follow Up ?Time Frame ?Comments Kelsie Oliver Patient Instructions Follow up with your primary care provider, Kelsie Danielson, in 1 week if needed Follow up with Cardiology, Marah Estrada, on 04/16/2022 @12:45pm Your only new medication is 2.5mg of amlodipine as your pressures are consistently elevated throughout the day Check your blood pressure first thing in the morning and right before you go to bed so your physician can adjust your medication if needed Return to the ED if you have a return of symptoms Post Discharge Care Discharge ?04/14/22 9:49:00 EST Discharge Prescriptions ?ePrescribed, ??04/14/22 9:49:00 EST Results Discharge Labs BLOOD COUNT & DIFF WBC 5.5 k/mm3 ()?? 04/12/2022 11:52 RBC 3.60 m/mm3 (Low)?? 04/12/2022 11:52 Hgb 12.1 Gm/dL ()?? 04/12/2022 11:52 Hct 35.4 % (Low)?? 04/12/2022 11:52 MCV 98.3 femtoliters ()?? 04/12/2022 11:52 MCH 33.6 pg ()?? 04/12/2022 11:52 MCHC 34.2 g/dL ()?? 04/12/2022 11:52 Platelet Count 252 k/mm3 ()?? 04/12/2022 11:52 RDW-SD 51.8 femtoliters (High)?? 04/12/2022 11:52 MPV 8.7 femtoliters (Low)?? 04/12/2022 11:52 Nucleated RBC (Automated) 0.0 #/100 WBC'S ()?? 04/12/2022 11:52 Abs. NRBC 0.0 k/mm3 ()?? 04/12/2022 11:52 Abs. Neut 3.3 k/mm3 ()?? 04/12/2022 11:52 Abs. Lymph 1.8 k/mm3 ()?? 04/12/2022 11:52 Abs. [place] 0.4 k/mm3 ()?? 04/12/2022 11:52 Abs. Eo 0.0 k/mm3 ()?? 04/12/2022 11:52 Abs. Baso 0.0 k/mm3 ()?? 04/12/2022 11:52 Neut % 59.1 % ()?? 04/12/2022 11:52 Lymph % 32.2 % ()?? 04/12/2022 11:52 [place] % 7.1 % ()?? 04/12/2022 11:52 Eos % 0.7 % ()?? 04/12/2022 11:52 Baso % 0.5 % ()?? 04/12/2022 11:52 Imm Gran 0.4 % ()?? 04/12/2022 11:52 Abs. Imm Gran 0.0 k/mm3 ()?? 04/12/2022 11:52 ?? CARDIAC Nt-Probnp 177 pg/mL (High)?? 04/12/2022 11:54 High Sensitivity Troponin (HSTnT) 9 ng/L ()?? 04/13/2022 10:43 ?? CHEM GENERAL Sodium 131 mmol/L (Low)?? 04/14/2022 05:29 Potassium 4.0 mmol/L ()?? 04/14/2022 05:29 Chloride 99 mmol/L ()?? 04/14/2022 05:29 Bicarbonate Level 23 mmol/L ()?? 04/14/2022 05:29 Anion Gap 9 ()?? 04/14/2022 05:29 Glucose Level 94 mg/dL ()?? 04/12/2022 11:52 BUN 11 mg/dL ()?? 04/13/2022 05:36 Creatinine-Blood 0.5 mg/dL ()?? 04/14/2022 05:29 Estimated GFR Creatinine 102 ML/MIN/1.73 M2 ()?? 04/14/2022 05:29 Calcium 9.2 mg/dL ()?? 04/12/2022 11:52 ?? HEME OTHER Hold Lavender Top SPECIMEN DISCARDED AFTER 24 HOURS. ()?? 04/14/2022 05:29 Hold Blue Top SPECIMEN DISCARDED AFTER 4 HOURS. ()?? 04/12/2022 11:52 ?? MISC. CHEMISTRY Hold Gel Top SPECIMEN DISCARDED AFTER 1 WEEK ()?? 04/12/2022 11:52 ? VIROLOGY Influenza A PCR NEGATIVE ()?? 04/12/2022 12:03 Influenza B PCR NEGATIVE ()?? 04/12/2022 12:03 RSV PCR NEGATIVE ()?? 04/12/2022 12:03 COVID-19 PCR Specimen Source NASAL ()?? 04/12/2022 12:03 COVID-19 PCR Result NEGATIVE ()?? 04/12/2022 12:03 ? 33??minutes spent on discharge reviewing case, IPOC/nursing rounds, explaining discharge instructions and answering patient questions Adarsh GIRON, Macey Ivey: PERFORM, MODIFY Event Display: Patient Education/Instruction Authored Date: Inpatient Adult Discharge Instructions [address] [address] Name: LY ROSSI : 1955 Visit: 04/13/2022 11:38:00 Current Date: 04/14/2022 09:57 Account: [id number] Inpatient Adult Discharge Instructions We would like [...] and their families. Surveys are administered by [employer] ?? If further treatment with your primary care physician or another doctor is recommended, it is important for you to keep the appointment. Call your primary care physician or return to the Emergency Department immediately if your condition worsens, fails to improve, or new symptoms develop. If you need to find a doctor, you can call [facility] [employer] for a referral at [phone] or toll free at [phone]) or log in to [email or web address].. ?? You can view and manage your care through the patient portal or by using a health care karen of your choosing. [email or web address] is a website that allows you to securely view your medical information including your hospital discharge summary, office visit summaries, medications and follow-up visits. You can also request appointments, renew medications, and request access to your medical information using a health care karen of your choosing, or just ask a question. You can enroll at [email or web address] or register during your next office visit. You have been discharged from [facility], Patient Care Unit: Med Surg. If you have any questions regarding these instructions after you leave, please call us and we will be happy to assist you. [facility] Your Care Team Attending Physician Keith Morris DO Consulting Providers Keith Morris DO Discharging Providers Keith Morris DO Reason for Admission Chest pain Your Diagnosis Chest pain Hypertension Hyperlipemia Paroxysmal A-fib Lung cancer, upper lobe MDD (major depressive disorder) HAMIDA (generalized anxiety disorder) Chronic hyponatremia Orthostatic hypotension Tests Performed Below is a partial list of the tests performed during your hospitalization. You may have had other tests and procedures not included in this list. Please discuss all test results with your provider. B Type Natriuretic Peptide Basic Metabolic Panel BUN CBC w/ Differential COVID-19, RSV, and Flu A/B, Rapid PCR Creatinine Electrolytes High??Sensitivity??Troponin T Hold Blue Top Tube HOLD GEL TUBE HOLD LAVENDER TUBE Troponin T, High Sensitivity CXR Portable Primary Care Provider Jagjit WEAVER, Kelsie Landin Advance Directive Health Care Proxy on File Yes - Health Care Proxy Yes - MOLST No qualifying data available. Discharge Vitals Temperature: 99.5 DegF Height: 162 cm Pulse Rate: 68 bpm Weight: 71.1 kg Respiratory Rate: 18 br/min Body Mass Index:??27.09 kg/m2??High Systolic Blood Pressure:??145 mm Hg??High Body surface area: 1.79 Diastolic Blood Pressure: 58 mm Hg ?? Oxygen Saturation: 94 % ?? Studies Pending All tests and labs ordered during this hospital stay have been completed unless listed below. Pleasediscuss all pending results with your provider listed above in these instructions. ?? No incomplete studies found What to do next Instructions From Your Doctor Follow up with your primary care provider, Kelsie Danielson, in 1 week if needed Follow up with Cardiology, Marah Estrada, on 04/16/2022 @12:45pm You have been prescribed 2.5mg of amlodipine daily as your pressures are consistently elevated throughout the day You have been prescribed 40mg of pantoprazole daily to see if this helps with your chest pain Check your blood pressure first thing in the morning and right before you go to bed so your physician can adjust your medication if needed Return to the ED if you have a return of symptoms Discharge Orders Scheduled Follow-Up Appointments Saturday 12:45 PM EST ?? With: Sean BLANCHARD, Marah Nolan Where: [facility] [address] [place] [address]- Saturday 2:30 PM EST ?? With: Ryan BLANCHARD, Paula Nolan Where: [facility] [address] [facility] [address] [place] [address]- You Need to Schedule the Following Appointments Follow Up with??Kelsie Oliver When?? Where: [address] [place] [address]- Discharge Medications YL ROSSI :1955 Visit Date:04/13/2022 Medications: Please continue your medications until treatment is completed or stopped by your provider. Medications not listed below should be discontinued. Discuss any questions related to medications with your provider. What How Much When Instructions Next Dose New Amlodipine (amLODIPine 2.5 mg oral tablet) 1 tab(s) Oral Daily Pickup at [facility] tomorrow 8am New Pantoprazole (pantoprazole 40 mg oral delayed release tablet) 40 Milligram Oral Daily Duration: 30 Days Pickup at [facility] tomorrow 8am Unchanged apixaban (Eliquis 5 mg oral tablet) 1 tab(s) Oral Twice a day tonight 9pm Unchanged Atorvastatin (atorvastatin 10 mg oral tablet) 1 tab(s) Oral Daily at Bedtime tonight 9pm Unchanged Lorazepam (LORazepam 0.5 mg oral tablet) 1 tab(s) Oral Twice a day as needed for as needed for anxiety as directed Unchanged Oxycodone (oxyCODONE 5 mg oral tablet) 1 tab(s) Oral Every 12 hours as needed for as needed for pain may take 2.5mg ?? No driving ?? Mass Pat reviewed ?? as directed Unchanged Polyethylene Glycol 3350 (MiraLax Powder) 17 gram Oral Daily tomorrow 9am Unchanged Senna (Senna 8.6 mg oral tablet) 1 tab(s) Oral Daily at Bedtime tonight 9pm Unchanged Venlafaxine (Effexor XR 37.5 mg oral capsule, extended release) 1 capsule Oral Daily tomorrow 9am Pharmacy Information [facility]: [address], [place] [id number] [phone] Test Results Below is a partial list of the most recent Laboratory test results done prior to this discharge. You may have had other tests and procedures not included in this list. Please discuss all test results with your provider. B Type Natriuretic Peptide (04/12/2022) ???Nt-Probnp - 177 pg/mL Basic Metabolic Panel (04/12/2022) ???Sodium - 128 mmol/L???Potassium - 4.3 mmol/L???Chloride - 94 mmol/L???Bicarbonate Level - 21 mmol/L???Anion Gap - 13???Glucose Level - 94 mg/dL???BUN - 6 mg/dL???Creatinine-Blood - 0.5 mg/dL???Estimated GFR Creatinine - 102 ML/MIN/1.73 M2???Calcium - 9.2 mg/dL BUN (04/13/2022) ???BUN - 11 mg/dL CBC w/ Differential (04/12/2022) ???WBC - 5.5 k/mm3???RBC - 3.60 m/mm3???Hgb - 12.1 Gm/dL???Hct - 35.4 %???MCV - 98.3 femtoliters???MCH - 33.6 pg???MCHC - 34.2 g/dL???Platelet Count - 252 k/mm3???RDW-SD - 51.8 femtoliters???MPV - 8.7 femtoliters???Nucleated RBC (Automated) - 0.0 #/100 WBC'S???Abs. NRBC - 0.0 k/mm3???Abs. Neut - 3.3 k/ mm3???Abs. Lymph - 1.8 k/mm3???Abs. [place] - 0.4 k/mm3???Abs. Eo - 0.0 k/mm3???Abs. Baso - 0.0 k/mm3???Neut % - 59.1 %???Lymph % - 32.2 %???[place] % - 7.1 %???Eos % - 0.7 %???Baso % - 0.5 %???Imm Gran - 0.4 %???Abs. Imm Gran - 0.0 k/mm3 COVID-19, RSV, and Flu A/B, Rapid PCR (04/12/2022) ???Influenza A PCR - NEGATIVE???Influenza B PCR - NEGATIVE???RSV PCR - NEGATIVE???COVID-19 PCR Specimen Source - NASAL???COVID-19 PCR Result - NEGATIVE Creatinine (04/14/2022) ???Creatinine-Blood - 0.5 mg/dL???Estimated GFR Creatinine - 102 ML/MIN/1.73 M2 Electrolytes (04/14/2022) ???Sodium - 131 mmol/L???Potassium - 4.0 mmol/L???Chloride - 99 mmol/L???Bicarbonate Level - 23 mmol/L???Anion Gap - 9 High??Sensitivity??Troponin T (04/12/2022) ???High Sensitivity Troponin (HSTnT) - 7 ng/L Hold Blue Top Tube (04/12/2022) ???Hold Blue Top - SPECIMEN DISCARDED AFTER 4 HOURS. HOLD GEL TUBE (04/12/2022) ???Hold Gel Top - SPECIMEN DISCARDED AFTER 1 WEEK HOLD LAVENDER TUBE (04/14/2022) ???Hold Lavender Top - SPECIMEN DISCARDED AFTER 24 HOURS. Troponin T, High Sensitivity (04/13/2022) ???High Sensitivity Troponin (HSTnT) - 9 ng/L Allergies (NKA means No Known Allergies) tetracycline??(red blotches) Adhesive Bandage Cymbalta Flexeril??(rash) doxycycline??(rash) nonsteroidal anti-inflammatory agents??([D]Wheezing) penicillin??(rash) sulfa drugs Problems Active Problems??(33) Antiplatelet or antithrombotic long-term use?? Bruit of left carotid artery?? Chest pain?? [...] radiculitis?? Lumbosacral spondylosis without myelopathy?? Macular degeneration?? MDD (major depressive disorder), recurrent episode, moderate?? Median nerve compression, left?? Myofascial pain syndrome, diffuse?? Osteopenia?? Overweight (BMI 25.0-29.9)?? Paroxysmal atrial flutter?? Primary adenocarcinoma of upper lobe of left lung ([id number])?? Subclavian artery stenosis, left?? Tubular adenoma of colon?? Vascular bruit overarea of subclavian arteries L & R?? Vertebral artery occlusion?? Education Materials Below is the list of Educational Leaflet Providered with your Discharge Instructions. Amlodipine Oral Tablet?? Valuables and Belongings I fully understand and agree that [facility] accepts no responsibility for all my [...] to send valuables and belongings home. ?? Review of Valuable and Belonging List: With patient Date for Pt to Sign Valuables/Belongings: 04/13/22 11:29:00 ?? Other Discharge Information ?? Wound Assessment?? Wound Assessment?? Wound Location I: Groin, right ? Pulmonary Rehab Status?? Pulmonary Rehab Discharge [...] are strongly encouraged to quit. Please call [facility] [employer] Link at [phone] or [phone] ([phone]) or log in to [email or web address] for referrals to smoking cessation programs. ?? The National Suicide Prevention Hotline is available 08/10 if you or someone you know needs to find areason to keep living. By calling 1-972-657-[place] (3009) you'll be connected to a skilled, trained counselor at a crisis center in your area. INPATIENT DISCHARGE INSTRUCTIONS SIGNATURE PAGE LY ROSSI Location:[facility] Registration Date and Time:04/13/2022 11:38 EST Primary Care Physician: Kelsie Oliver, I LY ROSSI, have received the above patient education materials/instructions and have verbalized understanding. If ambulance or transport services are being used I further acknowledge being given a choice of service. ?? If you need to contact me, please call me at this number: . Patient/Load Builder Name: Patient/Load Builder Signature: Relationship to Patient: Witness Name/Signature: Date: Macey lAtamirano RN: PERFORM Event Display: Patient Education Leaflets Authored Date: [id number] Amlodipine Oral Tablet ?? 7515-1820 Amlodipine Oral Tablet Brands: [employer]) Uses This medicine is used for the following purposes: ??? angina ??? high blood pressure ??? Raynaud's disease ?? Instructions This medicine may be taken with or without food. It is very important that you take the medicine at about the same time every day. It will work bestif you do this. Keep the medicine at room temperature. Avoid heat and direct light. It is important that you keep taking each dose of this medicine on time even if you are feeling well. If you forget to take a dose on time, take it as soon as you remember. If it is almost time for thenext dose, do not take the missed dose. Return to your normal dosing schedule. Do not take 2 doses of this medicine at one time. Tell your doctor and pharmacist about all your medicines. Include prescription and [id number]-[id number], vitamins, and herbal medicines. Keep all appointments for medical exams and tests while on this medicine. ?? Cautions Do not use the medication any more than instructed. If possible, avoid using with marijuana or other medicines that can cause dizziness or drowsiness. These include allergy/cold products, muscle relaxers, sleep aids, and pain relievers. Your ability to stay alert or to react quickly may be impaired by this medicine. Do not drive or operate machinery until you know how this medicine will affect you. Please check with your doctor before drinking alcohol while on this medicine. Tell the doctor or pharmacist if you are , planning to be , or . Do not start or stop any other medicines without first speaking to your doctor or pharmacist. Do not share this medicine with anyone who has not been prescribed this medicine. ?? Side Effects The following is a list of some common side effects from this medicine. Please speak with your doctor about what you should do if you experience these or other side effects. ??? dizziness ??? swelling of the legs, feet, and hands ??? lack of energy and tiredness ??? feeling of heat or flushing ??? low blood pressure Call your doctor or get medical help right away if you notice any of these more serious side effects: ??? worsening chest pain or crushing feeling ??? fainting ??? fast or irregular heart beats ??? jawpain ??? shortness of breath A few people may have an allergic reaction to this medicine. Symptoms can include difficulty breathing, skin rash, itching, swelling, or severe dizziness. If you notice any of these symptoms, seek medical help quickly. ?? Extra Please speak with your doctor, nurse, or pharmacist if you have any questions about this medicine. ?? [email or web address] IMPORTANT NOTE: This document tells you briefly how to take your medicine, but it does not tell youall there is to know about it. Your doctor or pharmacist may give you other documents about your medicine. Please talk to them if you have any questions. Always follow their advice. There is a more complete description of this medicine available in Bengali. Scan this code on your smartphone or tablet or use the web address below. You can also ask your pharmacist for a printout. If you have any questions, please ask your pharmacist. The display and use of this drug information is subject to Terms of Use. Copyright(c) 2021 [employer]. ?? [employer]. All rights reserved. This information is not intended as a substitute for professional medical care. Always follow your healthcare professional's instructions. ??Keith Morris DO: PERFORM Event Display: Discharge/Transfer Note Hospital Authored Date: [id number] Patient: ??LY ROSSI ? Age:??67 Years?Sex:??Female?:??1955?? Patient Information Discharge Location: Med Surg Primary Care Physician: Kelsie Oliver Admit Date/Time: 04/12/22 11:17 Discharge Disposition Discharge Disposition: Home: No Services Discharge Diagnosis Chest pain (R07.9) Chronic hyponatremia (E87.1) HAMIDA (generalized anxiety disorder) (F41.1) Hyperlipemia (E78.5) Hypertension (I10) Lung cancer, upper lobe (C34.10) MDD (major depressive disorder) (F32.9) Paroxysmal A-fib (I48.0) _ Discharge Medications apixaban (Eliquis 5 mg oral tablet)?1?tab(s)?5?Milligram?By Mouth?2 times a day Atorvastatin (atorvastatin 10 mg oral tablet)?1?tab(s)?10?Milligram?By Mouth?Dailyat bedtime Lorazepam (LORazepam 0.5 mg oral tablet)?1?tab(s)?0.5?Milligram?By Mouth?2 times aday?as needed?as needed for anxiety Oxycodone (oxyCODONE 5 mg oral tablet)?5?Milligram?1?tablet?By Mouth?Every 12 hours?as needed?may take 2.5mgNo drivingMass Pat reviewed?as needed for pain Polyethylene Glycol 3350 (MiraLax Powder)?1?pack/packet?17?gram?By Mouth?Daily Senna (Senna 8.6 mg oral tablet)?8.6?Milligram?1?tab(s)?By Mouth?Daily at bedtime Venlafaxine (Effexor XR 37.5 mg oral capsule, extended release)?37.5?Milligram?1?capsule?By Mouth?Daily ? Durable Medical Equipment Discharge recommendations: Rehab (03/13/22) Name of Agency #1: [facility] (03/15/22) Agency Super[facility] [employer] #1: intake (09/15/21) Service Categories #1: Occupational Therapy, Physical Therapy, [facility] (03/15/22) Service Start Date and Time #1: 03/15/22 15:30:00 (03/15/22) Service Comments #1: you are being discahrged to [facility] today, [facility] will transport via ambulance. (03/10/22) Ambulatory devices needed: Walker (03/14/22) ? Medications Started None Medications Discontinued None Doses Changed None Allergies Allergies ?(Active and Proposed Allergies Only) [...] Unknown severity, Onset: Unknown) ?Reactions: rash ? Future Appointments Saturday 12:45 PM EST ?? With: Marah Estrada NP Where: [facility] [address] [place] [address]- Saturday 2:30 PM EST ?? With: Ryan BLANCHARD, Paula Nolan Where: [facility] [address] [facility] [address] [place] [address]- Hospital Course History of Present Illness This is a 67-year-old female PMHx hypertension, hyperlipidemia, paroxysmal A. 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 Patient states that she woke up at approximately 2:00 this morning with a chest pain that caused her immediate anxiety. Patient states she took Tylenol, oxycodone, Ativan with little to no relief of her symptoms. States it was non-reproducible, radiated into her back and made her stomach feel all wormy . She then presented via EMS for further evaluation. She received aspirin, nitro, fentanyl en route to ED. She denies any recent sick contacts no lightheadedness no dizziness no fever no chills no cough no shortness of breath no abdominal pain no vomiting no diarrhea no numbness/tingling bilaterallower extremity no new hot or cold intolerance no new rashes or skin lesions. ?? In the ED the patient was somewhat hypertensive BP 155/78, afebrile saturating 97% on room air without tachycardia or tachypnea. Labs overall unremarkable WBC 5.5, Hgb 12.1, sodium chronic low 128, chloride 94, bicarb 21, BUN 6, creatinine blood 0.5, NT proBNP 177, high-sensitivity troponin 8 with repeat 7. EKG showing normal sinus rhythm. Viral panel negative. Chest x-ray portable with curvilinear atelectasis or scarring involving left midlung with no vascular congestion or consolidation. ?? The patient received morphine, IVF in the ED and is to be admitted for ACS rule out. ?? Objective Assessment and Plan Chest pain ??(R07.9) The patient presented with a 1 day history of chest pain that resolved by the time she reached the hospital. EKG showed normal sinus rhythm without acute ST changes.??Initial troponin was 8 and??repeatwas 7, which ruled out ACS. CXR showed no acute process, and she remained in normal sinus rhythm on telemetry. ?? Paroxysmal A-fib ??(I48.0) Continue Eliquis. She is no longer on diltiazem given previous??hypotension. ?? Chronic hyponatremia ??(E87.1) The patient has chronic hyponatremia with sodium of 128 on admission.??After IVF her sodium is 131 at discharge. She is asymptomatic. ?? HAMIDA (generalized anxiety disorder) ??(F41.1) MDD (major depressive disorder) ??(F32.9) Continue venlafaxine ?? Hyperlipemia ??(E78.5) Continue statin ?? Hypertension ??(I10) Patient with a history of HTN previously on amlodipine and diltiazem. Currently she is not on any medications. This can be followed by her primary care provider ?? Lung cancer, upper lobe ??(C34.10) S/p radiation??on 03/08. Patient to f/u with oncology as scheduled.? Vital Signs?? Temperature: 98.1 DegF (04/13/22 07:50:00) Temperature Route: Oral (04/13/22 07:50:00) Pulse Rate: 78 bpm (04/13/22 07:50:00) Respiratory Rate: 18 br/min (04/13/22 07:50:00) Systolic Blood Pressure:??143 mm Hg??High (04/13/22 07:50:00) Diastolic Blood Pressure: 61 mm Hg (04/13/22 07:50:00) Blood pressure sites: Arm, right (04/13/22 07:50:00) Mean Arterial Pressure: 88 mm Hg (04/13/22 07:50:00) Pulse Pressure: 82 mm Hg (04/13/22 07:50:00) Oxygen Saturation: 94 % (04/13/22 07:50:00) Mode of Delivery (Oxygen): Room air (04/13/22 07:50:00) Early Warning Score: 3 (04/13/22 07:52:02) ? . Physical Exam Constitutional: Alert, in no acute distress Eyes: EOMI, no pallor or scleral icterus Ear, Nose and Throat: mucous membranes moist. Respiratory: Clear to auscultation b/l without wheezes, rales or rhonchi. No use of accessory muscles. Cardiovascular: Regular rate and rhythm, no rubs, murmurs or gallops. Gastrointestinal: Abdomen soft, non-tender, non-distended. Normal bowel sounds. Genitourinary: No suprapubic tenderness. Extremities: No lower extremity pitting edema. No cyanosis or clubbing. Neurologic: AAOx3, Cranial nerves II-XII grossly intact. Moves all 4 extremities spontaneously. Sensation intact bilaterally.?? Consultants None Pending Results No Pending Results Follow-Up Appointments Added Follow Up ?Time Frame ?Comments Jagjit WEAVER, Kelsie Landin Patient Instructions Follow up with your primary care provider, Kelsie Danielson, in 1 week if needed Follow up with Cardiology, Marah Estrada, on 04/16/2022 @12:45pm We have not prescribed you any new medications Return to the ED if you have a return of symptoms Results Discharge Labs BLOOD COUNT & DIFF WBC 5.5 k/mm3 ()?? 04/12/2022 11:52 RBC 3.60 m/mm3 (Low)?? 04/12/2022 11:52 Hgb 12.1 Gm/dL ()?? 04/12/2022 11:52 Hct 35.4 % (Low)?? 04/12/2022 11:52 MCV 98.3 femtoliters ()?? 04/12/2022 11:52 MCH 33.6 pg ()?? 04/12/2022 11:52 MCHC 34.2 g/dL ()?? 04/12/2022 11:52 Platelet Count 252 k/mm3 ()?? 04/12/2022 11:52 RDW-SD 51.8 femtoliters (High)?? 04/12/2022 11:52 MPV 8.7 femtoliters (Low)?? 04/12/2022 11:52 Nucleated RBC (Automated) 0.0 #/100 WBC'S ()?? 04/12/2022 11:52 Abs. NRBC 0.0 k/mm3 ()?? 04/12/2022 11:52 Abs. Neut 3.3 k/mm3 ()?? 04/12/2022 11:52 Abs. Lymph 1.8 k/mm3 ()?? 04/12/2022 11:52 Abs. [place] 0.4 k/mm3 ()?? 04/12/2022 11:52 Abs. Eo 0.0 k/mm3 ()?? 04/12/2022 11:52 Abs. Baso 0.0 k/mm3 ()?? 04/12/2022 11:52 Neut % 59.1 % ()?? 04/12/2022 11:52 Lymph % 32.2 % ()?? 04/12/2022 11:52 [place] % 7.1 % ()?? 04/12/2022 11:52 Eos % 0.7 % ()?? 04/12/2022 11:52 Baso % 0.5 % ()?? 04/12/2022 11:52 Imm Gran 0.4 % ()?? 04/12/2022 11:52 Abs. Imm Gran 0.0 k/mm3 ()?? 04/12/2022 11:52 ?? CARDIAC Nt-Probnp 177 pg/mL (High)?? 04/12/2022 11:54 High Sensitivity Troponin (HSTnT) 7 ng/L ()?? 04/12/2022 13:54 ?? CHEM GENERAL Sodium 131 mmol/L (Low)?? 04/13/2022 05:36 Potassium 3.9 mmol/L ()?? 04/13/2022 05:36 Chloride 99 mmol/L ()?? 04/13/2022 05:36 Bicarbonate Level 24 mmol/L ()?? 04/13/2022 05:36 Anion Gap 8 ()?? 04/13/2022 05:36 Glucose Level 94 mg/dL ()?? 04/12/2022 11:52 BUN 11 mg/dL ()?? 04/13/2022 05:36 Creatinine-Blood 0.5 mg/dL ()?? 04/13/2022 05:36 Estimated GFR Creatinine 102 ML/MIN/1.73 M2 ()?? 04/13/2022 05:36 Calcium 9.2 mg/dL ()?? 04/12/2022 11:52 ?? HEME OTHER Hold Lavender Top SPECIMEN DISCARDED AFTER 24 HOURS. ()?? 04/13/2022 05:36 Hold Blue Top SPECIMEN DISCARDED AFTER 4 HOURS. ()?? 04/12/2022 11:52 ?? MISC. CHEMISTRY Hold Gel Top SPECIMEN DISCARDED AFTER 1 WEEK ()?? 04/12/2022 11:52 ? VIROLOGY Influenza A PCR NEGATIVE ()?? 04/12/2022 12:03 Influenza B PCR NEGATIVE ()?? 04/12/2022 12:03 RSV PCR NEGATIVE ()?? 04/12/2022 12:03 COVID-19 PCR Specimen Source NASAL ()?? 04/12/2022 12:03 COVID-19 PCR Result NEGATIVE ()?? 04/12/2022 12:03 ? 32??minutes spent on discharge reviewing case, IPOC/nursing rounds, explaining discharge instructions and answering patient questions Portable XR Chest Views BHSPowerscribe , CIS S: TRANSCRIBE Siddhartha Bryant MD: VERIFY Event Display: Result: Authored Date: Chest Portable AP upright Hx of Present Illness: Reports mid sternal CP since last night. Progressing. Hx of anxiety. Took ativan last night with no effect. 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 Reports CP 5 10.;Reason: Cough; Clinical Question(s): Pneumonia COMPARISON: 01/30/2022. FINDINGS: LINES AND TUBES: None. LUNGS AND PLEURA: Curvilinear area in the left mid lung may reflect atelectasis or scarring. No pulmonary vascular congestion. No pleural effusion. No pneumothorax. HEART, MEDIASTINUM AND KEYANNA: Heart is normal in size. Normal mediastinal and hilar contour. Vascular stent in the left upper mediastinum. BONES AND SOFT TISSUES: No acute abnormality. IMPRESSION: Curvilinear atelectasis or scarring involving the left mid lung. No pulmonary vascular congestion orfocal consolidation. WSN: [id number] Ordering Physician: Earnest Jones Dictated By: Siddhartha Bryant MD Dictated Date/Time: 04/12/22 1:11 pm Reviewed By: Siddhartha Bryant MD Signed By: Siddhartha Bryant MD Signed Date/Time: 04/12/22 1:11 pm Transcribed By: SHAHNAZ Transcribed Date/Time: 04/12/22 1:08 pm Patient Care team information Care Team PersonnelName: Kelsie Oliver Position: S PCO Associate Professional Member Role: PCP Address: Address: [address] [place] [address]- Name: Manas Landaverde RN Position: [facility] RN Member Role: Primary Care Nurse Name: Aide Reid RN Position: [facility] RN Member Role: Primary Care Nurse Name: Rosey Kramer RN Position: [facility] RN Member Role: Primary Care Nurse Name: Kyra Byrne RN Position: [facility] RN Member Role: Primary Care Nurse Name: Ryan Blackmon DO Position: [facility] Physician -Physician Practices Member Role: [employer] Physician Address: Address: [address] [place] [id number]- Name: Karen Stearns RN Position: [facility] RN Member Role: Primary Care Nurse Name: Karen Padilla RN Position: [facility] RN Member Role: Primary Care Nurse Name: Ani LEONARD Attending Position: [facility] ED Medicine MD Name: Angie Davis RN Position: [facility] ED RN W/OE and Tasks Member Role: Patient Care Provider Name: Kishor Robb Position: [facility] ED OA Member Role: Patient Care Provider Care Team Related PersonsName: SILVER ROSSI Name: LASHAY MORLEY Address: [address] [place] [address]
--- OUTSIDE RECORDS SUMMARY | 2022-04-27 19:47 | XMS_ITS | Continuity of Care Document ---
:1955 Author Organization [facility] Address [address] [place] [address]- Care Team Providers Name Role Phone Kelsie Oliver Primary Care Physician Encounter [facility] Date(s): 02/07/22 - 03/09/22 [facility] [address] [place] [address]- Attending Physician: Brenton Cabrera Admitting Physician: Brenton Cabrera Referring Physician: AdmtrBrenton Allergies, Adverse Reactions, Alerts Substance Reaction Severity Status doxycycline rash Active tetracycline red blotches Persistent Moderate Active penicillin rash Active sulfa drugs Active Flexeril rash Active nonsteroidal anti-inflammatory agents [D]Wheezing Active Adhesive Bandage Active Cymbalta Active Immunizations Given and Recorded Vaccine Date Status Refusal Reason influenza virus vaccine, inactivated 03/06/22 Given [id number] bivalent booster vax 12/13/21 Recorde d SARS-CoV-2 [...] Unknown, 1 Refills, Maintenance, 02/09/22 18:57:00 EST, [facility], 163, cm, 01/31/22 14:28:00 EST, Height, 72.6, kg, 01/24/22 13:07:00 EST, Dry Weight Start Date: 02/09/22 Status: Ordereddiltiazem 180 mg/24 hours oral capsule, extended release 180 mg, 1, capsule, By Mouth, Daily, # 30 capsule, Refills 5, Tot. Refills 5, Maintenance, 02/20/22 15:57:00 EST, Route to Pharmacy Electronically, [facility], 163, cm, 01/31/22 14:28:00 [...] adenocarcinoma of upper lobe of left lung ([id number]) Subclavian artery Confirmed Active stenosis, left Tubular adenoma of Confirmed Active colon 1neg stress kqcn0Ropvaud Oswestry Disability Index: 58% (26/45; severe disability ); updated [place] Back Pain Disability Scale score: 71 both on 07/20/20 3initial Oswestry Disability Index: 62% ( crippled ) on 06/30/18; initial [place] Back Pain Scale: 81 on goal < 130 smoker, VQw6Lcgq score 0.6 hip, 5.7 other Social History [...] information Care Team PersonnelName: Kelsie Oliver Position: [facility] Associate Professional Member Role: PCP Address: Address: [address] [place] [id number] Name: Saima GIRON, Manas Position: [facility] RN Member Role: Primary Care Nurse Name: Kyar Byrne RN Position: [facility] RN Member Role: Primary Care Nurse Name: Ryan Blackmon DO Position: [facility] Physician -Physician Practices Member Role: [employer]etime Consulting Physician Address: Address: [address] [place] [id number] Name: Karen Stearns RN Position: [facility] RN Member Role: Primary Care Nurse Name: Vandana Hu RN Position: [facility] RN Member Role: Primary Care Nurse Care Team Related PersonsName: SILVER ROSSI Name: LASHAY MORLEY Address: [place] [address] [place] [address]
--- OUTSIDE RECORDS SUMMARY | 2022-04-27 19:47 | XMS_ITS | Continuity of Care Document ---
:1955 Author Organization [facility] Address [address] [place] [address]- Care Team Providers Name Role Phone Kelsie Oliver Primary Care Physician Encounter [facility] Date(s): 02/15/20 - 03/16/20 [facility] [address] [place] [address]- Allergies, Adverse Reactions, Alerts Substance Reaction Severity [...] 10/12/19 9:33:00 EDT, Route to Pharmacy Electronically, [facility], 160.2, cm, 10/02/19 13:49:00 EDT, Height Start Date: 10/12/19 Stop Date: 04/09/20 Status: OrderedAspirin 81, mg, By Mouth, Daily, 0, 0, 04/12/06 11:40:18, Print RADHA Number, [id number], Constant Indicator Start Date: 04/12/06 Status: OrderedColace [...] 02/18/20 11:29:00 EST, Route to Pharmacy Electronically, [facility] [...] tablet, 0 Refills, Maintenance, 03/10/20 8:59:00 EST, [facility], Partial fill upon patient request., 160.2, cm, 02/18/20 10:29:00 EST, Height Start Date: 03/10/20 Status: OrderedSenna By Mouth, Daily, 0 Refills, Maintenance, 11/11/18 11:53:35 EDT Start Date: 11/11/18 Status: Orderedtopiramate 100 mg oral tablet 1 tablet = 100 mg, By Mouth, Daily at bedtime, # 28 tablet, 5 Refills, Maintenance, 08/25/19 8:09:00EDT, [facility], 160.5, cm, 07/07/19 9:17:00 EDT, Height Start Date: 08/25/19 Status: OrderedValium 5 mg oral tablet 5 mg, 1, tablet, By Mouth, 3 times a day, PRN, may take 4th tablet for severe spasm, # 112 tablet, Refills 2, Tot. Refills 2, Maintenance, muscle spasm, 03/10/20 8:59:00 EST, Route to Pharmacy Electronically, [facility], 160.2, cm, 02/18/20 10... Start [...] Active Vitamin D deficiency(Confirmed) Active 1neg stress fnik4Wjw back pain DOI 04/08/200818254dwoivaw Oswestry Disability Index: 62% ( crippled ) on 06/30/18; initial [place] Back Pain Scale: 81 on goal < 130 smoker, XWz8kzrhhld point injections-neuro Dr HollowayGoczzf5wpqv management per Dr Vanesa worthy [place]- pcgqh0LABU GQLEB6YZ joint dysfunction status post uzfmgrsru2FQZ 05/24 degenerative changes, L5 S1 facet joint inflam-pv93Hkpq score 0.6 hip, 5.7 lsguc75YQRJY-G: 15 on 2ACE score: 6 on 11/11/18 Social History Social History Type Response Smoking Status 10 or more cigarettes (1/2 p ack or more)/day in last 30 days; Type: Cigarettes; Other: 1ppd-1/2ppd; Started at age: 24; entered on: 09/22/18 Sex
--- OUTSIDE RECORDS SUMMARY | 2022-04-27 19:48 | XMS_ITS | Continuity of Care Document ---
:1955 Author Organization [facility] Address [address] [place] [address]- Care Team Providers Name Role Phone Kelsie Oliver Primary Care Physician [place] [facility] [place] 03/24/20 - 03/31/20 [facility] [address] [place] [address]- Attending Physician: Not on Staff, Attending MD [...] 10/12/19 9:33:00 EDT, Route to Pharmacy Electronically, [facility], 160.2, cm, 10/02/19 13:49:00 EDT, Height Start Date: 10/12/19 Stop Date: 04/09/20 Status: OrderedAspirin 81, mg, By Mouth, Daily, 0, 0, 04/12/06 11:40:18, Print RADHA Number, [id number], Constant Indicator Start Date: 04/12/06 Status: OrderedColace [...] 1 Refills, Maintenance, 10/12/19 9:33:00 EDT, Tablet, [facility], 160.2, cm, 10/02/19 13:49:00 EDT, Height Start Date: 10/12/19 Stop Date: 04/09/20 Status: Orderedlisinopril 40 mg oral tablet 1 tablet = 40 mg, By Mouth, Daily, # 30 tablet, 5 Refills, Maintenance, 10/12/19 9:33:00 EDT, Tablet, [facility], 160.2, cm, 10/02/19 13:49:00 [...] tablet, 0 Refills, Maintenance, 03/10/20 8:59:00 EST, [facility], Partial fill upon patient [...] 03/10/20 8:59:00 EST, Route to Pharmacy Electronically, [facility], 160.2, cm, 02/18/20 10... Start [...] Active Vitamin D deficiency(Confirmed) Active 1neg stress dway6Bjz back pain DOI 04/08/200833897bqoufqt Oswestry Disability Index: 62% ( crippled ) on 06/30/18; initial [place] Back Pain Scale: 81 on goal < 130 smoker, DNs5cnrjxgi point injections-neuro Dr HollowayNiliok5rpeh management per Dr Alexis [place]- giqbz0BNDC HOQOI0FY joint dysfunction status post npvcgeihf0DVU 05/24 degenerative changes, L5 S1 facet joint inflam-jx20Iuup score 0.6 hip, 5.7 zszks56YYJDO-P: 15 on 2ACE score: 6 on 11/11/18 Vital Signs Most recent to oldest [Reference Range]: 1 Height 160.2 cm (03/24/20 12:29 PM) Social History Social History Type Response Smoking Status 10 or more cigarettes (1/2 p ack or more)/day in last 30 days; Type: Cigarettes; Other: 1ppd-1/2ppd; Started at age: 24; entered on: 09/22/18 Sex
--- OUTSIDE RECORDS SUMMARY | 2022-04-27 19:48 | XMS_ITS | Continuity of Care Document ---
:1955 Author Organization [facility] Address [address] [place] [address]- Care Team Providers Name Role Phone Kelsie Oliver Primary Care Physician Encounter [facility] Date(s): 12/07/21 - 01/11/[address] [address] Attending Physician: Lucian SHARPE, Ghulam Admitting Physician: Ghulam Epstein MD Referring Physician: Ghulam Epstein MD Allergies, Adverse Reactions, Alerts Substance Reaction [...] 90 tablet, 1 Refills, 07/24/21 14:35:00 EDT, [facility], 160, cm, 02/16/21 [...] 0 Refills, Soft Stop, 01/03/22 14:49:00 EDT, [facility], Partial fill upon patient request if the prescription is for a schedule II opioid drug., 160,... Start Date: 01/03/22 Status: Ordereddiltiazem 180 mg/24 hours oral capsule, extended release 180 mg, 1, capsule, By Mouth, Daily, # 30 capsule, Refills 5, Tot. Refills 5, Maintenance, 09/17/21 16:39:00 EDT, [facility] 1 Refills, Maintenance, 09/17/21 16:40:00 EDT, Patch, [facility], 24 hr Topically Daily, 160, cm, 09/15/21 4:30:00 EDT, Height, 74, kg, 09/13/21 20:36:00 EDT, Dry Weight Start Date: 09/17/21 Status: OrderedPEG-3350 with Electrolytes (Eqv-GoLYTELY) oral powder for reconstitution See Instructions, 1 glass every 15-30 minutes until finished, # 4,000 mL, 0 Refills, Maintenance, 01/08/22 13:55:00 EDT, [facility], Partial fill upon patient request if the prescription is fora schedule II opioid drug., 1 glass every 15-30 m... Start Date: 01/08/22 Status: OrderedSenna 8.8 mg/5 mL oral syrup 10 mL, By Mouth, Daily at bedtime, # 60 mL, 1 Refills, Maintenance, 12/22/21 13:12:00 EDT, [facility], 6, 10 mL By [...] artery Confirmed Active stenosis, left 1neg stress qdmh6Tvpszlc Oswestry Disability Index: 58% (26/45; severe disability ); updated [place] Back Pain Disability Scale score: 71 both on 07/20/20 3initial Oswestry Disability Index: 62% ( crippled ) on 06/30/18; initial [place] Back Pain Scale: 81 on goal < 130 smoker, SIw3Wrvo score 0.6 hip, 5.7 other Social History [...] information PersonnelName: Kelsie Oliver Address: Address: [address] [place], [place] [address]
--- OUTSIDE RECORDS SUMMARY | 2022-04-27 19:48 | XMS_ITS | Continuity of Care Document ---
:1955 Author Organization [facility] Address [address] [place] [address]- Care Team Providers Name Role Phone Kelsie Oliver Primary Care Physician Encounter [facility] Date(s): 12/14/20 - 12/14/[address] [address]- Discharge Disposition: A-D/C Home Attending Physician: Kenan Connors MD Admitting Physician: Kenan Connors MD Referring Physician: Not on Staff, Referring MD Allergies, Adverse Reactions, Alerts Substance Reaction Severity Status doxycycline rash Active tetracycline red blotches Persistent Moderate Active penicillin rash Active gabapentin Active Flexeril rash Active nonsteroidal anti-inflammatory agents [D]Wheezing Active Cymbalta Active sulfa drugs Active penicillins Active Immunizations Given and Recorded Vaccine Date [...] 07/12/20 11:52:00 EDT, Route to Pharmacy Electronically, [facility], 160.2, cm, 06/30/20 13:45:00 EDT, Height Start Date: 07/12/20 Stop Date: 01/08/21 Status: OrderedAspirin 81, mg, By Mouth, Daily, 0, 0, 04/12/06 11:40:18, Print RADHA Number, [id number], Constant Indicator Start Date: 04/12/06 Status: Orderedatorvastatin 10 mg oral tablet See Instructions, TAKE ONE TABLET BY MOUTH ONCE DAILY, # 90 tablet, 0 Refills, [facility], 160, cm, 10/31/20 9:48:00 [...] Refills, Maintenance, 06/29/20 8:06:00 EDT, [facility], 160.2, cm, 05/30/20 11:21:00 [...] Maintenance, 07/12/20 11:52:00 EDT, Tablet, [facility], 160.2, cm, 06/30/20 13:45:00 [...] Active Vitamin D deficiency(Confirmed) Active 1neg stress pnkf5Dbv back pain DOI 04/08/200815883Ejhshvg Oswestry Disability Index: 58% (26/45; severe disability ); updated [place] Back Pain Disability Scale score: 71 both on initial Oswestry Disability Index: 62% ( crippled ) on 06/30/18; initial [place] Back Pain Scale: 81 on goal < 130 smoker, FHx6 trigger point injections-neuro Dr HollowayEhqnfm0zhwi management per Dr Alexis [place]- zejku9QEIO SHJZU7SU joint dysfunction status post aefuqoica36UFX 05/24 degenerative changes, L5 S1 facet joint inflam-bo73Djha score 0.6 hip, 5.7 sphjv40JHQXM-B: 15 on 3ACE score: 6 on 11/11/18 Vital Signs Most recent to oldest 1 2 3 [Reference Range]: Height 161 cm 161 cm 161 cm (12/14/20 8:45 PM) (12/14/20 7:50 PM) (12/14/20 4:4 7 PM) Weight 68 kg 68 kg 68 kg (12/14/20 8:45 PM) (12/14/20 7:50 PM) (12/14/20 4:4 7 PM) Oxygen Saturation [94-100 100 % 97 % 99 % %] (12/14/20 8:45 PM) (12/14/20 7:50 PM) (12/14/20 6:4 8 PM) Pulse Rate [55-90 bpm] 68 bpm 80 bpm 82 bpm (12/14/20 8:45 PM) (12/14/20 7:50 PM) (12/14/20 6:4 8 PM) Body Mass Index 26.23 26.23 [18.5-24.99] *H* *H* (12/14/20 8:45 PM) (12/14/20 7:50 PM) Blood Pressure 115/72 mm Hg 94/61 mm Hg 101/64 mm Hg [90-138/55-84 mm Hg] (12/14/20 8:45 PM) (12/14/20 7:50 PM) ( 6:48 PM) Respiratory Rate [16-30 18 br/min 17 br/min 16 br/mi n br/min] (12/14/20 8:45 PM) (12/14/20 7:50 PM) (12/14/20 6:4 8 PM) Temperature [96.8-100.4 97.4 DegF DegF] (12/14/20 4:47 PM) Liters per Minute 0 L/min 0 L/min (12/14/20 8:45 PM) (12/14/20 7:50 PM) Mode of Delivery (Oxygen) Room air Room air Room a ir (12/14/20 8:45 PM) (12/14/20 7:50 PM) (12/14/20 6:4 8 PM) Blood pressure sites Arm, right Arm, right Arm, left (12/14/20 8:45 PM) (12/14/20 7:50 PM) (12/14/20 6:4 8 PM) Temperature Route Oral (12/14/20 4:47 PM) Dry Weight 68 kg 68 kg 68 kg (12/14/20 8:45 PM) (12/14/20 7:50 PM) (12/14/20 4:4 7 PM) Weight Obtained Via Patient/family stated (12/14/20 4:47 PM) Social History Social History Type Response Smoking Status Cigars or pipes but not tad y within last 30 days entered on: 07/29/20 Sex Female
--- OUTSIDE RECORDS SUMMARY | 2022-04-27 19:48 | XMS_ITS | Continuity of Care Document ---
:1955 Author Organization [facility] Address Unavailable , Care Team Providers Name Role Phone Kelsie Oliver Primary Care Physician [place] [facility]17[place] 06/16/21 [facility] Allergies, Adverse Reactions, Alerts [...] 0, 0, 04/12/06 11:40:18, Print RADHA Number, [id number], Constant Indicator Start Date: 04/12/06 Status: Orderedatorvastatin 10 mg oral tablet See Instructions, TAKE ONE TABLET BY MOUTH ONCE DAILY, # 90 tablet, 0 Refills, [facility], 160, cm, 10/31/20 9:48:00 [...] Active Vitamin D deficiency(Confirmed) Active 1neg stress ybao1Hsh back pain DOI 04/08/200891679Otetoyo Oswestry Disability Index: 58% (26/45; severe disability ); updated [place] Back Pain Disability Scale score: 71 both on initial Oswestry Disability Index: 62% ( crippled ) on 06/30/18; initial [place] Back Pain Scale: 81 on goal < 130 smoker, FHx6 trigger point injections-neuro Dr HollowayFbqpak0llvx management per Dr Alexis mamou- wbquu2DBSE XNIQI8WD joint dysfunction status post bbnohgvym21MPI 05/24 degenerative changes, L5 S1 facet joint inflam-ta10Ctpj score 0.6 hip, 5.7 ramjw93HPJBO-X: 15 on 3ACE score: 6 on 11/11/18 Social History Social History Type Response Smoking Status Cigars or pipes but not tad y within last 30 days entered on: 07/29/20 Sex Female
--- OUTSIDE RECORDS SUMMARY | 2022-04-27 19:48 | XMS_ITS | Continuity of Care Document ---
:1955 Author Organization [facility] Address [address] [place] [address]- Care Team Providers Name Role Phone Kelsie Oliver Primary Care Physician Encounter [facility] Date(s): 01/05/22 - 02/04/22 [facility] [address] [place] [address]- Attending Physician: Rick, Brenton Admitting Physician: Admtr, Brenton Referring Physician: Admtr, Ar8 Allergies, Adverse Reactions, Alerts Substance Reaction Severity Status doxycycline rash Active tetracycline red blotches Persistent Moderate Active nonsteroidal anti-inflammatory agents [D]Wheezing Active Cymbalta Active penicillin rash Active sulfa [...] 90 tablet, 1 Refills, 07/24/21 14:35:00 EDT, [facility], 160, cm, 02/16/21 11:16:00 EST, Height, 64, kg, 01/19/21 11:44:00 EDT, Dry Weight Start Date: 07/24/21 Status: Orderedcyanocobalamin 1000 mcg oral tablet 1,000 mcg, 1, tablet, By Mouth, Daily, # 90 tablet, Refills 1, Tot. Refills 1, Maintenance, 09/18/2215:40:00 EDT, Route to Pharmacy Electronically, [facility], 160, cm, 09/15/21 4:30:00 EDT, Height, 74, kg, 09/13/21 20:36:00 EDT, Dry Weight Start Date: 09/17/21 Status: Ordereddiltiazem 180 mg/24 hours oral capsule, extended release 180 mg, 1, capsule, By Mouth, Daily, # 30 capsule, Refills 5, Tot. Refills 5, Maintenance, 09/17/21 16:39:00 EDT, Route to Pharmacy Electronically, [facility], 160, cm, 09/15/21 4:30:00 [...] 1 Refills, Maintenance, 09/17/21 16:40:00 EDT, Patch, [facility], 24 hr Topically Daily, 160, cm, 09/15/21 4:30:00 EDT, Height, 74, kg, 09/13/21 20:36:00 EDT, Dry Weight Start Date: 09/17/21 Status: OrderedSenna 8.8 mg/5 mL oral syrup 10 mL, By Mouth, Daily at bedtime, # 900 mL, 3 Refills, Maintenance, 01/18/22 13:14:00 EDT, [facility], 10 mL By Mouth Daily [...] adenocarcinoma of upper lobe of left lung (xA8cO2K5) Subclavian artery Confirmed Active stenosis, left Tubular adenoma of Confirmed Active colon 1neg stress agvc6Auzjcqd Oswestry Disability Index: 58% (26/45; severe disability ); updated [place] Back Pain Disability Scale score: 71 both on 07/20/20 3initial Oswestry Disability Index: 62% ( crippled ) on 06/30/18; initial [place] Back Pain Scale: 81 on goal < 130 smoker, NKj3Hipo score 0.6 hip, 5.7 other Social History Social History Type Response Smoking Status Use: 4 or less cigarettes(le ss than 1/4 pack)/day in last 30 days; Former smoker, quit more than 30 days ago; Other: QUIT 2 WEEKS AGO (01/17/2022); PRIOR TO THAT WAS ONLY 2-3 CIG/D X AGE 22; entered on: 01/31/22 Sex Female MR Abdomen Event Display: MRI Abdomen Authored Date: Patient Care team information Care Team PersonnelName: Kelsie Oliver Position: [facility] PCO Associate Professional Member Role: PCP Address: Address: [address] [place] [id number]- Name: Ryan Blackmon DO Position: [facility] Physician -Physician Practices Member Role: Lifetime Consulting Physician Address: Address: [address] [place] [address]- [place] Name: Karen Stearns RN Position: [facility] RN Member Role: Primary Care Nurse Name: Vandana Hu RN Position: [facility] RN Member Role: Primary Care Nurse Care Team Related PersonsName: SILVER ROSSI Name: LASHAY MORLEY Address: home [address] [place] [id number]
--- OUTSIDE RECORDS SUMMARY | 2022-04-27 19:48 | XMS_ITS | Continuity of Care Document ---
:1955 Author Organization [facility] Address [address] [place] [address]- Care Team Providers Name Role Phone Kelsie Oliver Primary Care Physician Encounter [facility] Date(s): 09/09/20 - 10/09/20 [facility] [address] [place] [address]- Allergies, Adverse Reactions, Alerts Substance Reaction Severity [...] 11:52:00 EDT, Route to Pharmacy Electronically, [facility], 160.2, cm, 06/30/20 13:45:00 EDT, Height Start Date: 07/12/20 Stop Date: 01/08/21 Status: OrderedAspirin 81, mg, By Mouth, Daily, 0, 0, 04/12/06 11:40:18, Print RADHA Number, [id number], Constant Indicator Start Date: 04/12/06 Status: OrderedControlled [...] Maintenance, 04/09/20 9:33:00 EST, Tablet, [facility], 160.2, cm, 03/24/20 12:29:00 [...] 11/18/20 8:00:00 EDT, 09/16/20 7:57:00 EDT, Patch, [facility], Partial fill upon patient request if the prescription is for a schedule IIopioid drug., 1 patch Topically Daily, 160, cm, 0... Start Date: 09/16/20 Stop Date: 11/18/20 Status: OrderedoxyCODONE 10 mg oral tablet 0.5 to 1 tablet, By Mouth, Every 6 hours, PRN pain r/t work injury, # 35 tablet, 0 Refills, Maintenance, 09/14/20 17:19:00 EDT, [facility], 160, cm, 08/30/20 [...] Active Vitamin D deficiency(Confirmed) Active 1neg stress ljss7Cxj back pain DOI 04/08/200851412Fbncylc Oswestry Disability Index: 58% (26/45; severe disability ); updated [place] Back Pain Disability Scale score: 71 both on initial Oswestry Disability Index: 62% ( crippled ) on 06/30/18; initial [place] Back Pain Scale: 81 on goal < 130 smoker, FHx6 trigger point injections-neuro Dr HollowayLsnsbq7xvam management per Dr Alexis [place]- uixny0XJHP PKZJN0VO joint dysfunction status post testurprw47CIM 05/24 degenerative changes, L5 S1 facet joint inflam-jf07Axcl score 0.6 hip, 5.7 axmot49TJBAR-P: 15 on 3ACE score: 6 on 11/11/18 Social History Social History Type Response Smoking Status Cigars or pipes but not tad y within last 30 days entered on: 07/29/20 Sex
--- OUTSIDE RECORDS SUMMARY | 2022-04-27 19:48 | XMS_ITS | Continuity of Care Document ---
:1955 Author Organization [facility] Address Unavailable , Care Team Providers Name Role Phone Kelsie Oliver Primary Care Physician Encounter [place] Date(s): 01/11/21 - 02/10/21 [facility] Allergies, Adverse Reactions, Alerts Substance [...] 07/12/20 11:52:00 EDT, Route to Pharmacy Electronically, [facility], 160.2, cm, 06/30/20 13:45:00 EDT, Height Start Date: 07/12/20 Stop Date: 01/08/21 Status: OrderedamLODIPine 5 mg oral tablet 0 Refills, Maintenance, 02/02/21 15:20:00 EST, Partial fill upon patient request if the prescriptionis for a schedule II opioid drug. Start Date: 02/02/21 Status: OrderedAspirin 81, mg, By Mouth, Daily, 0, 0, 04/12/06 11:40:18, Print RADHA Number, [id number], Constant Indicator Start Date: 04/12/06 Status: Orderedatorvastatin [...] Active Vitamin D deficiency(Confirmed) Active 1neg stress lxrm5Lbs back pain DOI 04/08/200851155Mgmghzm Oswestry Disability Index: 58% (26/45; severe disability ); updated [place] Back Pain Disability Scale score: 71 both on initial Oswestry Disability Index: 62% ( crippled ) on 06/30/18; initial [place] Back Pain Scale: 81 on goal < 130 smoker, FHx6 trigger point injections-neuro Dr HollowayBihkqk6yosh management per [facility]- pagsx0VRHT TIRBX7WR joint dysfunction status post haadyvdcp91XEP 05/24 degenerative changes, L5 S1 facet joint inflam-xv41Cmpm score 0.6 hip, 5.7 wqhfb59BYNNS-W: 15 on 3ACE score: 6 on 11/11/18 Social History Social History Type Response Smoking Status Cigars or pipes but not tad y within last 30 days entered on: 07/29/20 Sex Female
--- OUTSIDE RECORDS SUMMARY | 2022-04-27 19:48 | XMS_ITS | Continuity of Care Document ---
:1955 Author Organization [facility] Address [address] [place] [address]- Care Team Providers Name Role Phone Kelsie Oliver Primary Care Physician En[place] [facility] [place](s): 08/03/20 - 09/02/20 [facility] [address], [place] [address] Allergies, Adverse Reactions, Alerts Substance Reaction [...] 07/12/20 11:52:00 EDT, Route to Pharmacy Electronically, [facility], 160.2, cm, 06/30/20 13:45:00 EDT, Height Start Date: 07/12/20 Stop Date: 01/08/21 Status: OrderedAspirin 81, mg, By Mouth, Daily, 0, 0, 04/12/06 11:40:18, Print RADHA Number, [id number], Constant Indicator Start Date: 04/12/06 Status: OrderedControlled [...] Refills, Maintenance, 06/29/20 8:06:00 EDT, [facility], 160.2, cm, 05/30/20 11:21:00 [...] Maintenance, 04/09/20 9:33:00 EST, Tablet, [facility], 160.2, cm, 03/24/20 12:29:00 EST, Height Start Date: 04/09/20 Stop Date: 10/06/20 Status: Orderedlisinopril 40 mg oral tablet 1 tablet = 40 mg, By Mouth, Daily, 1/2 tab daily, # 30 tablet, 1 Refills, Maintenance, 07/12/20 11:52:00 EDT, Tablet, [facility], 160.2, cm, 06/30/20 13:45:00 EDT, Height Start Date: 07/12/20 Stop Date: 09/29/20 Status: OrderedLyrica 50 mg oral capsule 1 capsule = 50 mg, By Mouth, 3 times a day, # 42 capsule, 1 Refills, Maintenance, 08/19/20 14:28:00 EDT, Capsule, [facility], Partial fill upon patient [...] Acute 09/05/20 11:21:00 EDT, 08/22/2110:21:00 EDT, Patch, [facility], Partial fill upon patient request if the prescription is for a schedule II opioid drug., 1 patch Topically Da... Start Date: 08/22/20 Stop Date: 09/05/20 Status: OrderedtraZODone 50 mg oral tablet 25 mg, 0.5, tablet, By Mouth, Daily at bedtime, # 15 tablet, Refills 3, Tot. Refills 3, Maintenance,08/08/20 10:06:00 EDT, Route to Pharmacy Electronically, [facility], Discontinue Cymbalta, 160, cm, 08/08/20 9:24:00 EDT, Height, 67.9, kg, 05... Start Date: 08/08/20 Stop Date: 12/06/20 Status: OrderedValium 5 mg oral tablet 5 mg, 1, tablet, By Mouth, 2 times a day, PRN, for 14 days, # 28 tablet, Refills 1, Tot. Refills 1, Acute 09/16/20 14:28:00 EDT, Pain , Severe, 08/19/20 14:28:00 EDT, Route to Pharmacy Electronically, [facility], Partial fill upon patient requ... [...] Active Vitamin D deficiency(Confirmed) Active 1neg stress golv1Gkt back pain DOI 04/08/200837297Mqgygmr Oswestry Disability Index: 58% (26/45; severe disability ); updated [place] Back Pain Disability Scale score: 71 both on initial Oswestry Disability Index: 62% ( crippled ) on 06/30/18; initial [place] Back Pain Scale: 81 on goal < 130 smoker, FHx6 trigger point injections-neuro Dr HollowayMemajv2dnng management per Dr Alexis montrose- [id number] [id number] joint dysfunction status post owzjjatgk12AEX 05/24 degenerative changes, L5 S1 facet joint inflam-bc68Bchj score 0.6 hip, 5.7 fjktk13ELVSI-X: 15 on 3ACE score: 6 on 11/11/18 Social History Social History Type Response Smoking Status Cigars or pipes but not tad y within last 30 days entered on: 07/29/20 Sex
--- OUTSIDE RECORDS SUMMARY | 2022-04-27 19:48 | XMS_ITS | Continuity of Care Document ---
:1955 Author Organization [facility] Address [address] [place] [address]- Care Team Providers Name Role Phone Kelsie Oliver Primary Care Phys[id number] Date[facility]s): [facility] - [facility]23[facility] [address] [place] [address] Attending Physician: Tejas Abreu Jr, MD Admitting Physician: Tejas Abreu Jr, MD Referring Physician: Kelsie Oliver Allergies, Adverse [...] 07/12/20 11:52:00 EDT, Route to Pharmacy Electronically, [facility], 160.2, cm, 06/30/20 13:45:00 EDT, Height Start Date: 07/12/20 Stop Date: 01/08/21 Status: OrderedAspirin 81, mg, By Mouth, Daily, 0, 0, 04/12/06 11:40:18, Print RADHA Number, [id number], Constant Indicator Start Date: 04/12/06 Status: Orderedatorvastatin [...] signed 10/16/18 Updated: 07/20/2020 pharmacy [facility] Geraldo dx: mechanical low back [...] Active Vitamin D deficiency(Confirmed) Active 1neg stress tfyq3Hvg back pain DOI 04/08/200818918Uzgasru Oswestry Disability Index: 58% (26/45; severe disability ); updated [place] Back Pain Disability Scale score: 71 both on initial Oswestry Disability Index: 62% ( crippled ) on 06/30/18; initial [place] Back Pain Scale: 81 on goal < 130 smoker, FHx6 trigger point injections-neuro Dr HollowayJojkuq3irfd management per Dr Alexis [place]- cbbgq0QJVM TSWRB5CK joint dysfunction status post [id number] 05/24 degenerative changes, L5 S1 facet joint inflam-ap83Dmuz score 0.6 hip, 5.7 ssluo79XIJLN-V: 15 on 3ACE score: 6 on 11/11/18 Social History Social History Type Response Smoking Status Cigars or pipes but not tad y within last 30 days entered on: 07/29/20 Sex Female
--- OUTSIDE RECORDS SUMMARY | 2022-04-27 19:48 | XMS_ITS | Continuity of Care Document ---
:1955 Author Organization [facility] Address [address] [place] [address]- Care Team Providers Name Role Phone Kelsie Oliver Primary Care Physician [place] [facility] [place] 09/06/20 [facility] [address] [place] [address]- Attending Physician: Not on Staff, Attending MD [...] 07/12/20 11:52:00 EDT, Route to Pharmacy Electronically, [facility], 160.2, cm, 06/30/20 13:45:00 EDT, Height Start Date: 07/12/20 Stop Date: 01/08/21 Status: OrderedAspirin 81, mg, By Mouth, Daily, 0, 0, 04/12/06 11:40:18, Print RADHA Number, [id number], Constant Indicator Start Date: 04/12/06 Status: OrderedControlled [...] tablet, 1 Refills, Maintenance, 06/29/20 8:06:00 EDT, [facility], 160.2, cm, 05/30/20 11:21:00 EDT, [...] 1 Refills, Maintenance, 07/12/20 11:52:00 EDT, Tablet, [facility], 160.2, cm, 06/30/20 13:45:00 EDT, Height Start Date: 07/12/20 Stop Date: 09/29/20 Status: OrderedLyrica 50 mg oral capsule 1 capsule = 50 mg, By Mouth, 3 times a day, # 42 capsule, 1 Refills, Maintenance, 08/19/20 14:28:00 EDT, Capsule, [facility], Partial [...] Maintenance,08/08/20 10:06:00 EDT, Route to Pharmacy Electronically, [facility] #[facility], Discontinue Cymbalta, 160, cm, 08/08/20 9:24:00 EDT, Height, 67.9, kg, 05... Start Date: 08/08/20 Stop Date: 12/06/20 Status: OrderedValium 5 mg oral tablet 5 mg, 1, tablet, By Mouth, 2 times a day, PRN, for 14 days, # 28 tablet, Refills 1, Tot. Refills 1, Acute 09/16/20 14:28:00 EDT, Pain , Severe, 08/19/20 14:28:00 EDT, Route to Pharmacy Electronically, [facility] #[facility], Partial fill upon patient requ... [...] Active Vitamin D deficiency(Confirmed) Active 1neg stress govr5Gjk back pain DOI 04/08/200860029Gggzfni Oswestry Disability Index: 58% (26/45; severe disability ); updated [place] Back Pain Disability Scale score: 71 both on initial Oswestry Disability Index: 62% ( crippled ) on 06/30/18; initial [place] Back Pain Scale: 81 on goal < 130 smoker, FHx6 trigger point injections-neuro Dr HollowayVqmdoo9xfno management per Dr Alexis clio- dhhka0NSNX ACRYS3ET joint dysfunction status post [id number] 05/24 degenerative changes, L5 S1 facet joint inflam-ly55Gjve score 0.6 hip, 5.7 fzklf87EJNXJ-A: 15 on 3ACE score: 6 on 11/11/18 Vital Signs Most recent to oldest [Reference Range]: 1 2 Height 160 cm 160 cm (08/30/20 11:02 AM) (08/30/20 9:23 AM) Weight 66.9 kg 66.9 kg (08/30/20 11:02 AM) (08/30/20 9:23 AM) Oxygen Saturation [94-100 %] 94 % (08/30/20 9:23 AM) Pulse Rate [55-90 bpm] 91 bpm *H* (08/30/20 9:23 AM) Body Mass Index [18.5-24.99] 26.13 26.13 *H* *H* (08/30/20 11:02 AM) (08/30/20 9:23 AM) Blood Pressure [90-138/55-84 mm Hg] 90/50 mm Hg (08/30/20 9:23 AM) Blood pressure sites Arm, right (08/30/20 9:23 AM) Weight Obtained Via Standing scale Standing scale (08/30/20 11:02 AM) (08/30/20 9:23 AM) Social History Social History Type Response Smoking Status Cigars or pipes but not tad y within last 30 days entered on: 07/29/20 Sex
--- OUTSIDE RECORDS SUMMARY | 2022-04-27 19:48 | XMS_ITS | Continuity of Care Document ---
:1955 Author Organization [facility] Address [address] [place] [address]- Care Team Providers Name Role Phone Kelsie Oliver Primary Care Physician Encounter [facility] [place] Date(s): 05/06/19 - 07/17/[facility] [address] [place] [address] [facility] Attending Physician: Tejas Abreu Jr., MD Admitting Physician: Teajs Abreu Jr., MD Referring Physician: Kelsie Oliver Allergies, Adverse Reactions, Alerts Substance Reaction Severity Status doxycycline rash Active tetracycline red blotches Persistent Moderate Active penicillins Active nonsteroidal anti-inflammatory agents [D]Wheezing Active penicillin [...] 09/22/18 14:57:41 EDT, Route to Pharmacy Electronically, [id number], [facility] Start Date: 09/22/18 Stop Date: 09/17/19 Status: OrderedAspirin 81, mg, By Mouth, Daily, 0, 0, 04/12/06 11:40:18, Print RADHA Number, [id number], Constant Indicator Start Date: 04/12/06 Status: OrderedColace [...] Refills, Maintenance, Tablet, Route to Pharmacy Electronically, [id number], [facility] Start Date: 09/22/18 Stop Date: 09/17/19 Status: Orderedlisinopril 40 mg oral tablet 1 tablet = 40 mg, By Mouth, Daily, # 30 tablet, 5 Refills, Maintenance, 05/05/19 11:40:00 EST, Tablet, [facility], 160.5, cm, 03/27/19 13:36:00 [...] Replace Required Details, Route to Pharmacy Electronically, [facility], 160.5, cm, 07/07/19 9... [...] pain., # 112 tablet, 0 Refills, Maintenance, 06/30/19 9:21:00 EDT, [facility], Partial fill upon patient request., 160.5, cm, 05/06/19 11:18:00 EST, Height Start Date: 06/30/19 Status: OrderedSenna By Mouth, Daily, 0 Refills, Maintenance, 11/11/18 11:53:35 EDT Start Date: 11/11/18 Status: Orderedtopiramate 100 mg oral tablet 1 tablet = 100 mg, By Mouth, Daily at bedtime, # 28 tablet, 3 Refills, Maintenance, 05/14/19 15:17:00 EST, [facility], 160.5, cm, 05/06/19 11:18:00 EST, Height Start Date: 05/14/19 Status: OrderedValium 5 mg oral tablet 5 mg, 1, tablet, By Mouth, 3 times a day, PRN, may take 4th tablet for severe spasm, # 112 tablet, Refills 2, Tot. Refills 2, Maintenance, muscle spasm, 06/30/19 9:21:00 EDT, Route to Pharmacy Electronically, [facility], 160.5, cm, 05/06/19 11... Start [...] Active Vitamin D deficiency(Confirmed) Active 1neg stress zywn8Yyo back pain DOI 04/08/200871852khkfapa Oswestry Disability Index: 62% ( crippled ) on 06/30/18; initial [place] Back Pain Scale: 81 on goal < 130 smoker, YZr9phscumh point injections-neuro Dr HollowayWveefr2pkal management per Dr Alexis drums- ofjuc1COMS NWLNI5RM joint dysfunction status post kozvhrwrs7YUV 05/24 degenerative changes, L5 S1 facet joint inflam-xj21Ctop score 0.6 hip, 5.7 khfxu22HENBS-M: 15 on 2ACE score: 6 on 11/11/18 Social History Social History Type Response Smoking Status 10 or more cigarettes (1/2 p ack or more)/day in last 30 days; Type: Cigarettes; Other: 1ppd-1/2ppd; Started at age: 24; entered on: 09/22/18 Sex
--- OUTSIDE RECORDS SUMMARY | 2022-04-27 19:48 | XMS_ITS | Continuity of Care Document ---
:1955 Author Organization [facility] Address Unavailable , Care Team Providers Name Role Phone Kelsie Oliver Primary Care Physician [place] [facility] [place] 01/22/21 [facility] Allergies, Adverse Reactions, Alerts Substance Reaction Severity Status doxycycline rash Active tetracycline red blotches Persistent Moderate Active gabapentin Active nonsteroidal anti-inflammatory agents [D]Wheezing Active Cymbalta Active Flexeril rash Active penicillin [...] 11:52:00 EDT, Route to Pharmacy Electronically, [facility], 160.2, cm, 06/30/20 13:45:00 EDT, Height Start Date: 07/12/20 Stop Date: 01/08/21 Status: OrderedAspirin 81, mg, By Mouth, Daily, 0, 0, 04/12/06 11:40:18, Print RADHA Number, [id number], Constant Indicator Start Date: 04/12/06 Status: Orderedatorvastatin 10 mg oral tablet See Instructions, TAKE ONE TABLET BY MOUTH ONCE DAILY, # 90 tablet, 0 Refills, [facility], 160, cm, 10/31/20 9:48:00 [...] 1 Refills, Maintenance, 07/12/20 11:52:00 EDT, Tablet, [facility], 160.2, cm, 06/30/20 13:45:00 [...] Active Vitamin D deficiency(Confirmed) Active 1neg stress vhcj9Ifm back pain DOI 04/08/200854482Toiucag Oswestry Disability Index: 58% (26/45; severe disability ); updated [place] Back Pain Disability Scale score: 71 both on initial Oswestry Disability Index: 62% ( crippled ) on 06/30/18; initial [place] Back Pain Scale: 81 on goal < 130 smoker, FHx6 trigger point injections-neuro Dr HollowayDkvxev3eryo management per Dr Vanesa worthy [place]- njkvv5UNJF CHDLA0ZG joint dysfunction status post nytahilvl36FNL 05/24 degenerative changes, L5 S1 facet joint inflam-at35Gtdo score 0.6 hip, 5.7 rkfpv09DKTMH-F: 15 on 3ACE score: 6 on 11/11/18 Social History Social History Type Response Smoking Status Cigars or pipes but not tda y within last 30 days entered on: 07/29/20 Sex Female
--- OUTSIDE RECORDS SUMMARY | 2022-04-27 19:48 | XMS_ITS | Continuity of Care Document ---
:1955 Author Organization [facility] Address [address] [place] [address]- Care Team Providers Name Role Phone Kelsie Oliver Primary Care Physician Encounter [facility] [place] Date(s): 06/30/20 - 07/07/20 [facility] [address] [place] [address]- Attending Physician: Not on Staff, Attending MD [...] 9:33:00 EST, Route to Pharmacy Electronically, [facility], 160.2, cm, 03/24/20 12:29:00 EST, Height Start Date: 04/09/20 Stop Date: 07/08/20 Status: OrderedAspirin 81, mg, By Mouth, Daily, 0, 0, 04/12/06 11:40:18, Print RADHA Number, [id number], Constant Indicator Start Date: 04/12/06 Status: OrderedAzithromycin 5 Day Dose Pack 250 mg oral tablet 1 pack/packet, By Mouth, Once, # 6 tablet, 0 Refills, Soft Stop, 06/30/20 14:03:00 EDT, Tablet, [facility], Partial fill upon patient request if the prescription is for a schedule II opioid drug., 160.2, cm, 06/30/20 13:45:00 EDT, Height Start Date: 06/30/20 Status: OrderedColace Clear = 50 mg, By [...] tablet, 1 Refills, Maintenance, 06/29/20 8:06:00 EDT, [facility], 160.2, cm, 05/30/20 11:21:00 [...] 12:29:00 EST, Height Start Date: 04/01/20 Status: OrderedMOM Liquid By Mouth, Daily at [...] tablet, 0 Refills, Maintenance, 05/31/20 7:58:00 EDT, [facility] #[facility], Partial fill upon patient request. [...] 05/31/20 7:58:00 EDT, Route to Pharmacy Electronically, [facility], 160.2, cm, 05/30/20 11... Start [...] Active Vitamin D deficiency(Confirmed) Active 1neg stress grnh7Qqt back pain DOI 04/08/200802434dciulyu Oswestry Disability Index: 62% ( crippled ) on 06/30/18; initial [place] Back Pain Scale: 81 on goal < 130 smoker, AXx4ecspxrc point injections-neuro Dr HollowayEwzjap4aewm management per Dr Alexis [place]- mliji5NULW IKTYX5KJ joint dysfunction status post ttxlxcaak5XYE 05/24 degenerative changes, L5 S1 facet joint inflam-rf96Oooi score 0.6 hip, 5.7 hlung79WMJAG-A: 15 on 2ACE score: 6 on 11/11/18 Vital Signs Most recent to oldest [Reference Range]: 1 Height 160.2 cm (06/30/20 1:45 PM) Weight 68.4 kg (06/30/20 1:45 PM) Oxygen Saturation [94-100 %] 100 % (06/30/20 1:45 PM) Pulse Rate [55-90 bpm] 94 bpm *H* (06/30/20 1:45 PM) Body Mass Index [18.5-24.99] 26.65 *H* (06/30/20 1:45 PM) Blood Pressure [90-138/55-84 mm Hg] 100/60 mm Hg (06/30/20 1:45 PM) Blood pressure sites Arm, right (06/30/20 1:45 PM) Weight Obtained Via Standing scale (06/30/20 1:45 PM) Social History Social History Type Response Smoking Status 10 or more cigarettes (1/2 p ack or more)/day in last 30 days; Type: Cigarettes; Other: 1ppd-1/2ppd; Started at age: 24; entered on: 09/22/18 Sex
--- OUTSIDE RECORDS SUMMARY | 2022-04-27 19:48 | XMS_ITS | Continuity of Care Document ---
:1955 Author Organization [facility] Address [address] [place] [address]- Care Team Providers Name Role Phone Kelsie Oliver Primary Care Physician Encounter [facility] Date(s): 03/04/22 - 03/05/[address] [address]- Discharge Disposition: Transferred to short-term general hospit Attending Physician: Fatemeh Lacy MD Admitting Physician: Flavio Malik DO Referring Physician: Sebastien Hayden MD Allergies, Adverse Reactions, Alerts Substance Reaction Severity Status doxycycline rash Active tetracycline red blotches Persistent Moderate Active penicillin rash Active sulfa drugs Active Flexeril rash Active nonsteroidal anti-inflammatory agents [D]Wheezing Active Adhesive Bandage Active Cymbalta Active Immunizations Given and Recorded Vaccine Date Status Refusal Reason [id number] bivalent booster vax 12/13/21 Recorde d SARS-CoV-2 [...] Unknown, 1 Refills, Maintenance, 02/09/22 18:57:00 EST, [facility], 163, cm, 01/31/22 14:28:00 EST, Height, 72.6, kg, 01/24/22 13:07:00 EST, Dry Weight Start Date: 02/09/22 Status: Ordereddiltiazem 180 mg/24 hours oral capsule, extended release 180 mg, 1, capsule, By Mouth, Daily, # 30 capsule, Refills 5, Tot. Refills 5, Maintenance, 02/20/22 15:57:00 EST, Route to Pharmacy Electronically, [facility], 163, cm, 01/31/22 14:28:00 [...] Orderedgabapentin 100 mg oral capsule 100 mg, Capsule, By Mouth, Hold for: sedation, ESME, 03/05/22 17:15:00 EST Start Date: 03/05/22 Stop Date: 03/05/22 Status: Completedgabapentin 100 mg oral capsule 100 mg, 1, [...] Every 6 hours, PRN for Pain , Moderate, Routine, 03/04/22 19:36:00 EST Start Date: 03/04/22 Stop Date: 03/11/22 Status: OrderedoxyCODONE 5 mg oral tablet 5 [...] adenocarcinoma of upper lobe of left lung ([id number]) Subclavian artery Confirmed Active stenosis, left Tubular adenoma of Confirmed Active colon 1neg stress [id number] Oswestry Disability Index: 58% (26/45; severe disability ); updated [place] Back Pain Disability Scale score: 71 both on 07/20/20 3initial Oswestry Disability Index: 62% ( crippled ) on 06/30/18; initial [place] Back Pain Scale: 81 on goal < 130 smoker, [id number] score 0.6 hip, 5.7 other Results Radiology Reports Exam Date Time Procedure Performing Provider Status 03/04/22 3:[address] Angio Neck Ava Ruiz; Auth (V erified) Notes:(CT Angio Neck) Reason For Exam: Aneurysm, neck vessel(s);Other:RESULT: CT Angio Neck CT Angio Head, CT Angio Neck Hx of Present Illness: L sided chest pain starting @ 3am. Had radiation Saturday on L chest for lung cancer. Pain under R scapula. L sided weakness in arms and L. Normal for weakness on L arm due to blockage; Reason: Other:; Stroke; Clinical Question(s): Other:; Hematoma Aneurysm / Other: TECHNIQUE: CT angiogram of the head and [...] exposure parameters. RADIATION DOSE PARAMETERS: CTDIvol Body: 9.71 mGy, DLP Body: 1031 mGy*cm. COMPARISON: Noncontrast CT head performed concurrently and prior CTAs on 12/11/2021. FINDINGS: There is a 3 vessel arch. Mural [...] with an occlusion, progressed since prior study. The right common carotid artery is normal in caliber. The right carotid bulb has mural calcifications extending to the right proximal internal carotid artery. The right proximal ICA shows 20% stenosis by NASCET criteria. The left common carotid artery is normal in caliber. The left carotid bulb has mural calcifications extending to the left proximal internal carotid artery. The left proximal ICA shows 50% stenosis by NASCET criteria. Right vertebral artery: Dominant. Patent without stenosis. Left vertebral artery: The V1 and proximal V2 segments are not visualized consistent an occlusion, new since prior study. The more distal cervical segments are patent without stenosis. Cervical spine: Mild spondylosis. No acute pathology. Soft tissues and lung apices: The 1 cm spiculated nodule in the visualized left upper lobe is again seen, consistent with patient's history of malignancy. Mild dependent atelectasis is noted the bilaterally. Bilateral thyroid lobes are normal. There is no definite abnormality throughout the soft tissue neck. [place] of [place]: Concurrent CT of head showed no acute pathology. Bilateral internal carotid arteries at the skull base have mural calcifications. No definite stenosis is seen. Bilateral posterior communicating arteries are not visualized. No posterior communicating artery aneurysm is seen. Bilateral ACAs, MCAs and their branches are patent. No stenosis or vessel cut off is seen. No definite aneurysm is noted. Bilateral intracranial vertebral arteries are normal in calibers. No definite stenosis is seen. The vertebrobasilar junction is normal. The basilar artery is normal. No stenosis or dissection is seen. There is no basilar tip aneurysm. Bilateral floor layer helper and their branches are patent. The superior sagittal sinuses, the straight sinus, bilateral transverse and sigmoid sinuses: Patent without dural sinus thrombosis. IMPRESSION: No cutoff or high-grade stenosis of the major branches of the intracranial arteries. No aneurysm, stenosis, or vascular malformations present. The right proximal internal carotid artery show 20% % stenosis by NASCET criteria. The left proximal internal carotid artery show 50% stenosis by NASCET criteria. The right cervical vertebral artery shows no significant stenosis. The left subclavian artery is occluded from the segment of approximately 2 cm above its origin. Thisappears progressed since prior study. The V1 and proximal V2 segments of the left vertebral artery are not visualized consistent with an occlusion, new since prior. The rest shows no significant stenosis. REFERENCE: NASCET Criteria: The degree of internal carotid stenosis is based on NASCET Criteria: Normal: No stenosis Mild: Less than 50% stenosis Moderate: 50-69% stenosis Severe: 70-99% stenosis Total occlusion: No detectable patent lumen. The preliminary report was given by [facility]. The occlusion of the left subclavian artery and the left proximal vertebral arteries were not mentioned in the report. A critical result message (Simpson) has been communicated via the [employer] system on 03/05/2022 9:45 AM, Message ID [id number]. WSN: [id number] Ordering Physician: Kenan Connors Dictated By: Salvador Infante MD Dictated Date/Time: 03/05/22 9:56 am Reviewed By: Salvador Infante MD Signed By: Salvador Infante MD Signed Date/Time: 03/05/22 9:56 am Transcribed By: SHAHNAZ Transcribed Date/Time: 03/05/22 9:52 am Exam Date Time Procedure Performing Provider Status 03/04/22 3:[address] Angio Head Ava Ruiz; Auth (V erified) Notes:(CT Angio Head) Reason For Exam: Stroke;Other:RESULT: CT Angio Head CT Angio Head, CT Angio Neck Hx of Present Illness: L sided chest pain starting @ 3am. Had radiation Saturday on L chest for lung cancer. Pain under R scapula. L sided weakness in arms and L. Normal for weakness on L arm due to blockage; Reason: Other:; Stroke; Clinical Question(s): Other:; Hematoma Aneurysm / Other: TECHNIQUE: CT angiogram of the head and [...] exposure parameters. RADIATION DOSE PARAMETERS: CTDIvol Body: 9.71 mGy, DLP Body: 1031 mGy*cm. COMPARISON: Noncontrast CT head performed concurrently and prior CTAs on 12/11/2021. FINDINGS: There is a 3 vessel arch. Mural [...] with an occlusion, progressed since prior study. The right common carotid artery is normal in caliber. The right carotid bulb has mural calcifications extending to the right proximal internal carotid artery. The right proximal ICA shows 20% stenosis by NASCET criteria. The left common carotid artery is normal in caliber. The left carotid bulb has mural calcifications extending to the left proximal internal carotid artery. The left proximal ICA shows 50% stenosis by NASCET criteria. Right vertebral artery: Dominant. Patent without stenosis. Left vertebral artery: The V1 and proximal V2 segments are not visualized consistent an occlusion, new since prior study. The more distal cervical segments are patent without stenosis. Cervical spine: Mild spondylosis. No acute pathology. Soft tissues and lung apices: The 1 cm spiculated nodule in the visualized left upper lobe is again seen, consistent with patient's history of malignancy. Mild dependent atelectasis is noted the bilaterally. Bilateral thyroid lobes are normal. There is no definite abnormality throughout the soft tissue neck. [place] of [place]: Concurrent CT of head showed no acute pathology. Bilateral internal carotid arteries at the skull base have mural calcifications. No definite stenosis is seen. Bilateral posterior communicating arteries are not visualized. No posterior communicating artery aneurysm is seen. Bilateral ACAs, MCAs and their branches are patent. No stenosis or vessel cut off is seen. No definite aneurysm is noted. Bilateral intracranial vertebral arteries are normal in calibers. No definite stenosis is seen. The vertebrobasilar junction is normal. The basilar artery is normal. No stenosis or dissection is seen. There is no basilar tip aneurysm. Bilateral floor layer helper and their branches are patent. The superior sagittal sinuses, the straight sinus, bilateral transverse and sigmoid sinuses: Patent without dural sinus thrombosis. IMPRESSION: No cutoff or high-grade stenosis of the major branches of the intracranial arteries. No aneurysm, stenosis, or vascular malformations present. The right proximal internal carotid artery show 20% % stenosis by NASCET criteria. The left proximal internal carotid artery show 50% stenosis by NASCET criteria. The right cervical vertebral artery shows no significant stenosis. The left subclavian artery is occluded from the segment of approximately 2 cm above its origin. Thisappears progressed since prior study. The V1 and proximal V2 segments of the left vertebral artery are not visualized consistent with an occlusion, new since prior. The rest shows no significant stenosis. REFERENCE: NASCET Criteria: The degree of internal carotid stenosis is based on NASCET Criteria: Normal: No stenosis Mild: Less than 50% stenosis Moderate: 50-69% stenosis Severe: 70-99% stenosis Total occlusion: No detectable patent lumen. The preliminary report was given by [facility]. The occlusion of the left subclavian artery and the left proximal vertebral arteries were not mentioned in the report. A critical result message (Simpson) has been communicated via the [employer] system on 03/05/2022 9:45 AM, Message ID [id number]. WSN: [id number] Ordering Physician: Kenan Connors Dictated By: Salvador Infante MD Dictated Date/Time: 03/05/22 9:56 am Reviewed By: Salvador Infante MD Signed By: Salvador Infante MD Signed Date/Time: 03/05/22 9:56 am Transcribed By: SHAHNAZ Transcribed Date/Time: 03/05/22 9:52 am Exam Date Time Procedure Performing Provider Status 03/04/22 3:[address] Chest W/ Contrast Ava Ruiz; Helen sanchez (Verified) Notes:(CT Chest W/ Contrast) Reason For Exam: Stroke;Other:RESULT: CT Chest W/ Contrast CT Chest W/ Contrast INDICATION: Hx of Present Illness: L sided chest pain starting @ 3am. Had radiation Saturday on L chest for lung cancer. Pain under R scalpula. L sided weakness in arms and L. Normal for weakness on Larm due to blockage; Reason: Other:; Stroke; Clinical Question(s): CHF TECHNIQUE: Helical CT scan of the chest with IV contrast, formatted in 3 planes. 75 cc of Omnipaque 300 was administered intravenously. Weight-based protocol was performed using automatic exposure control. COMPARISON: 01/17/2022, PET CT 12/28/2021, MR abdomen 10/08/2021. FINDINGS: [place] view findings, lines and tubes: None. Trachea and airways: Patent without evidence of tracheal or endobronchial lesion. Lungs and pleura: Decreased size of left upper lobe biopsy-proven 1 x 0.8 cm adenocarcinoma, previously 1.5 x 0.8 cm. Interval decrease in the triangular nodule along the left fissure, series 5, image 54, which may reflect an intrapulmonary lymph node. No new pulmonary nodules identified. Mild bibasilar atelectasis. No effusion or pneumothorax. Mediastinum and irina: No mass or hematoma. No mediastinal or hilar lymphadenopathy. No esophageal abnormality. Partially imaged thyroid is unremarkable. Heart: Heart is normal in size. No pericardial effusion. Severe coronary artery calcification. Aorta: Severe atherosclerotic vascular calcification but no aneurysm. Pulmonary arteries: The main pulmonary artery is dilated to 3.8 cm. Moderate respiratory motion artifact decreases sensitivity, but there is no evidence of pulmonary embolism on this study performed without angiographic technique. Chest wall soft tissues: No acute abnormality. Diaphragm: Intact. Upper abdomen: Unchanged left adrenal 1.8 cm and right adrenal 2.2 cm low- attenuation nodules. Thesedemonstrated the mild activity on the PET CT 12/28/2021 and are consistent with lipid rich adenomas on CT abdomen 01/12/2022. Subcentimeter low-attenuation lesion within the hepatic segment 2 correlates with a T2 hyperintense lesion on MR abdomen 10/08/2021 and likely represents a simple cyst. Bones: No acute abnormality. IMPRESSION: 1. Interval decrease size of left upper lobe biopsy proven the 1 cm adenocarcinoma, previously 1.5 cm. 2. Unchanged bilateral adrenal nodules. 3. Enlarged pulmonary arteries which can be seen with pulmonary hypertension. I have personally reviewed the images and I agree with this report. WSN: [id number] Ordering Physician: Kenan Connors Dictated By: Sotero[Radiology] Josafat SHARPE Dictated Date/Time: 03/04/22 3:52 pm Reviewed By: Aundrea Benitez MD Signed By: Aundrea Benitez MD Signed Date/Time: 03/04/22 3:57 pm Transcribed By: SHAHNAZ Transcribed Date/Time: 03/04/22 3:39 pm Exam Date Time Procedure Performing Provider Status 03/04/22 3:[address] Head/Brain W/O Contrast Ava Ruiz; Kayla (Verified) Notes:(CT Head/Brain W/O Contrast) Reason For Exam: Neuro deficit, acute, stroke suspected;Other:RESULT: CT Head/Brain W/O Contrast CT Head/Brain W/O Contrast INDICATION: L sided chest pain starting @ 3am. Had radiation Saturday on L chest for lung cancer. Pain under R scalpula. L sided weakness in arms and L. Normal for weakness on L arm due to blockage TECHNIQUE: Noncontrast head CT using axial technique and reconstructed in axial and coronal planes. Iterative reconstruction techniques are used to optimize dose and image quality. CTDIvol Head: 44.46 mGy, DLP Head: 793 mGy*cm. COMPARISON: 12/11/2021. FINDINGS: [place] view findings, lines and tubes: None. BRAIN AND EXTRA-AXIAL SPACES: No parenchymal hemorrhage, midline shift, or mass effect. Bro-white matter differentiation is well preserved. No acute infarct. Negative insular ribbon sign. Atherosclerotic vascular calcification of the carotid arteries but negative hyperdense vessel sign. Mild prominence of the ventricles and sulci consistent with parenchymal volume loss. No white matter lesions. No subarachnoid hemorrhage. No subdural or epidural collection. CALVARIUM, SKULL BASE, AND SOFT TISSUES: No fractures or suspicious bony lesions. The paranasal sinuses and mastoid air cells are clear. Visualized orbits and globes are intact. The extracranial soft tissues are unremarkable. IMPRESSION: No acute intracranial pathology. I have personally reviewed the images and I agree with this report. WSN: [id number] Ordering Physician: Kenan Connors Dictated By: Serina Thomson MD Dictated Date/Time: 03/04/22 3:24 pm Reviewed By: Aundrea Benitez MD Signed By: Aundrea Benitez MD Signed Date/Time: 03/04/22 3:29 pm Transcribed By: SHAHNAZ Transcribed Date/Time: 03/04/22 3:13 pm Vital Signs Most recent to oldest 1 2 3 [Reference Range]: Height 159 cm 159 cm 159 cm (03/05/22 8:29 PM) (03/05/22 3:09 PM) (03/05/22 1:19 PM) Weight 71.3 kg 75 kg 75 kg (03/05/22 1:19 PM) (03/05/22 5:20 AM) (03/05/22 1:42 AM) Oxygen Saturation [94-100 98 % 100 % 100 % %] (03/05/22 8:29 PM) (03/05/22 3:09 PM) (03/05/22 1:19 PM) Pulse Rate [55-90 bpm] 62 bpm 81 bpm 63 bpm (03/05/22 8:29 PM) (03/05/22 3:09 PM) (03/05/22 1:19 PM) Body Mass Index 28.2 kg/m2 29.67 kg/m2 29.67 kg/m2 [18.5-24.99 kg/m2] *H* *H* *H* (03/05/22 1:19 PM) (03/05/22 5:20 AM) (03/05/22 1:42 AM) Blood Pressure 104/54 mm Hg 103/78 mm Hg 123/49 mm Hg [90-138/55-84 mm Hg] (03/05/22 8:29 PM) (03/05/22 3:09 PM) (02/15 12/07 1:19 PM) Respiratory Rate [16-30 18 br/min 16 br/min 16 br/mi n br/min] (03/05/22 8:29 PM) (03/05/22 7:55 PM) (03/05/22 7:51 PM) Temperature [96.8-100.4 97.1 DegF 98.1 DegF 98.1 Deg F DegF] (03/05/22 8:29 PM) (03/05/22 3:09 PM) (03/05/22 1:19 PM) Liters per Minute 0 L/min 0 L/min 0 L/min (03/05/22 1:42 AM) (03/04/22 11:10 PM) (03/04/22 7:51 PM) Mode of Delivery (Oxygen) Room air Room air Room a ir (03/05/22 8:29 PM) (03/05/22 3:09 PM) (03/05/22 1:19 PM) Blood pressure sites Arm, right Arm, right Arm, right (03/05/22 8:29 PM) (03/05/22 3:09 PM) (03/05/22 1:19 PM) Temperature Route Oral Oral Oral (03/05/22 8:29 PM) (03/05/22 3:09 PM) (03/05/22 1:19 PM) Dry Weight 79 kg 75 kg 75 kg (03/05/22 1:19 PM) (03/05/22 5:20 AM) (03/05/22 1:42 AM) Weight Obtained Via Standing scale Patient/family stated (03/05/22 1:19 PM) (03/04/22 2:35 PM) Dry Weight Obtained Via Patient/family stated Patient/family sta catarina (03/05/22 1:19 PM) (03/04/22 2:35 PM) Social History Social History Type Response Smoking Status Use: 4 or less cigarettes(le ss than 1/4 pack)/day in last 30 days; Former smoker, quit more than 30 days ago; Other: QUIT 2 WEEKS AGO (01/17/2022); PRIOR TO THAT WAS ONLY 2-3 CIG/D X AGE 22; entered on: 01/31/22 Sex Female History and physical note Davida Hauser: PERFORM Event Display: History and Physical Hospital Authored Date: [id number] Patient: ??LY ROSSI ? Age:??67 Years?Sex:??Female?:??1955?? Chief Complaint/Reason for Consultation pain under R scalpula and L sided chest pain. Hx of lung cancer on L side. Last radiation was a week ago. inverted T waves. Has blockage in L arm, L sided weakness & tingling. New onset memoryloss History of Present Illness This is a 67 year old female with history of left lung adenocarcinoma undergoing radiation therapy,subclavian steal syndrome followed by vascular, HTN, HLD, chronic hyponatremia, lumbar spinal stenosis, fibromyalgia, atrial flutter who presents with chest pain. ?? Patient had been undergoing workup for subclavian steal syndrome, was incidentally found to have a left lung mass with biopsy proven adenocarcinoma and had radiation treatment from 02/15 - 02/28. Says it was a bit uncomfortable going into the machine having her arms up over her head for the radiation,and had some associated fatigue but no other issues such as rash. Starting Saturday after her last day of treatment she developed achy pain on her right trunk/ribs worse with movement or deep inspiration. She was taking Tylenol. Last night she awoke around 3AM this time with pain on the left side under her scapula and left side of her trunk which was new. She said her BP was through the roof and she started getting herself worked up. She took an Ativan but it didn't help so she came to the ER. She feels like maybe her fibromyalgia is acting up, says she used to take gabapentin for this but stopped as she was worried about potential side effects. She was brought in by EMS as a code stroke due to left upper extremity weakness, though patient confirms LUE weakness and ROM is chronically limiteddue to her subclavian steal. ?? In the ER BP 189/72, afebrile, on room air. Labs with nml WBC, HsTNT 12 then 8 ruled out for ACS. Sodium 128. CT head non acute. CTA head/neck by [facility] shows bilateral ICA atherosclerosis, exam somewhat limited by bolus timing, CT chest with interval decrease in left upper lobe mass. She was given morphine and Zofran. Did not feel she could manage symptoms at home so is admitted for further care.?? Review of Systems POSTIVE ROS noted in *bold* Constitutional: no weight loss, fever, chills or fatigue HEENT: no cough, congestion, rhinorrhea. No vision change or blurred vision Skin: no rash or itching Cardiovascular: no chest pain or palpitations Respiratory: no shortness of breath, cough or sputum Gastrointestinal: no abdominal pain, nausea, vomiting, diarrhea, blood in vomit or stool Genitourinary: no dysuria, frequency or incontinence Neurologic: no headache, dizziness, syncope, unilateral weakness, ataxia or numbness Musculoskeletal: no muscle pain, back pain or joint pain/stiffness Hematologic: no bleeding or bruising Psychiatric: no depression or anxiety Endocrine: no reports of sweating, heat or cold intolerance Full ROS completed and is negative or as otherwise mentioned above. Objective Measurements?? Height: 159 cm (03/04/22) Weight: 75 kg (03/04/22) Dry Weight: 75 kg (03/04/22) Body Mass Index:??29.67 kg/m2??High (03/04/22) ? Vital Signs?? Temperature: 97.9 DegF (03/04/22 14:35:00) Temperature Route: Oral (03/04/22 14:35:00) Pulse Rate: 66 bpm (03/04/22 19:51:00) Respiratory Rate: 18 br/min (03/04/22 19:51:00) Systolic Blood Pressure: 120 mm Hg (03/04/22 19:51:00) Diastolic Blood Pressure: 69 mm Hg (03/04/22 19:51:00) Blood pressure sites: Arm, right (03/04/22 19:51:00) Mean Arterial Pressure: 86 mm Hg (03/04/22 19:51:00) Pulse Pressure: 51 mm Hg (03/04/22 19:51:00) Oxygen Saturation: 96 % (03/04/22 19:51:00) Liters per Minute: 0 L/min (03/04/22 19:51:00) Mode of Delivery (Oxygen): Room air (03/04/22 19:51:00) ? Physical Exam ?General??tired frail??woman appears older than stated age?HEENT??Moist mucous membranes ?Lung??CTA bilaterally, no wheezes, rhonchi, or rales?Heart??regular rate and rhythm, no murmurs, gallops, or rubs?Abdomen soft, non-tender, non-distended, bowel sounds present?Extremities??there is point tenderness with palpation under the left scapular region and??her right??lower ribs/mid axillary, uncomfortable with repositioning in the bed/sitting up.??no clubbing, no cyanosis,??no pedal edema, peripheral pulses intact?Neurologic??Alert & oriented x 3,??LUE is slightly weaker than the right, sensation, pulsesto extremity are intact, rest CN??2-12 intact ?Skin??no rash or skin lesion seen in the areas where her pain is ?Psychiatry appropriate mood and affect?? Assessment/Plan Assessment:??This is a 67 year old female with history of left lung adenocarcinoma undergoing radiation therapy, subclavian steal syndrome followed by vascular, HTN, HLD, chronic hyponatremia, lumbar spinal stenosis, fibromyalgia, atrial flutter who presents with chest pain. ?? Chest pain (R07.9):?? right sided rib/trunk pain x3 days, now left sided mid-axillary/scapular pain x 1 day. Worse with palpation and movement favor musculoskeletal etiology. Possibly exacerbated by positioning from radiation. She feels this is her fibromyalgia pain. ECG is unchanged from prior and ruled out for ACS with t roponin x2. CT chest shows no acute lung pathology to otherwise explain her symptoms. No rash or radiation associated skin changes are seen trial gabapentin x1 tonight as this helped with her fibromyalgia pain in past lidocaine patches scheduled Tylenol has allergy to NSAIDS oxycodone PRN heat/ice as needed telemetry monitoring, low suspect for cardiac etiology ?? Primary adenocarcinoma of upper lobe of left lung ([id number]) (C34.12):??s/p radiation therapy 02/15-02/28 ?? Subclavian steal syndrome of left subclavian artery (G45.8):??follows w/ neuroendovascular for this. has had episodes of dizziness, diplopia, ataxia, near syncope felt related to this. Has LUE weakness which is chronic (activated as code stroke by mistake) Extremity is warm and well perfused. Plans to have stent placed once she is treated for the lung cancer ?? Hypertension (I10):??continue diltiazem. she was very anxious about her BP being elevated on arrival and feels she should go back on lisinopril. It has come down with treatment of her pain, advised will continue to monitor/treat her pain and see how her BP does before new medications ?? Hyponatremia (E87.1):??Na 128, known for chronic??hyponatremia. She appears euvolemic by history/exam. Status post 500 cc IVF fluids. Recheck Na in AM ?? Paroxysmal atrial flutter (I48.92):??rate is controlled. continue diltiazem and eliquis ?? Hyperlipidemia (E78.5):??continue statin ?? Generalized anxiety disorder (F41.1):??takes lorazepam 0.5 mg BID PRN ?? VTE Prophylaxis:??Eliquis ?VTE Prophylaxis Assessment:??VTE Prophylaxis Ordered Code Status:??Full ?Order Code Status:??Code Status Ordered Ongoing Medical Necessity:??chest pain Discharge Planning:??pending improvement Histories Allergies Allergies ?(Active and Proposed Allergies Only) Cymbalta? (Severity: Unknown severity, Onset: Unknown) Flexeril? [...] adenocarcinoma of upper lobe of left lung ([id number]) Subclavian artery stenosis, left Tubular adenoma of [...] Cancer of lung ? Medications Home Medications apixaban (apixaban 5 mg oral tablet)?1?tab(s)?5?Milligram?By Mouth?2 times a day Atorvastatin (atorvastatin 10 mg oral tablet)?See Instructions?TAKE ONE TABLET BY MOUTH ONCE DAILY Cholecalciferol (Vitamin D3)?By Mouth Cyanocobalamin (cyanocobalamin 1000 mcg oral tablet)?1,000?Microgram?1?tablet?By Mouth?Daily Diclofenac Topical (Flector Patch 1.3% topical film, extended release)?1?patch(es)?Topically?2 times a day?as needed?for pain Diltiazem (diltiazem 180 mg/24 hours oral capsule, extended release)?180?Milligram?1?capsule?By Mouth?Daily Lorazepam (LORazepam 0.5 mg oral tablet)?1?tab(s)?0.5?Milligram?By Mouth?2 times a day?as needed?as needed for anxiety Nicotine (nicotine 7 mg/24 hr transdermal film, extended release)?24?hour?7?Milligram?Topically?Daily Polyethylene Glycol 3350 (MiraLax Powder)?1?pack/packet?17?gram?By Mouth?Daily?as needed?Constipation Senna (Senna 8.8 mg/5 mL oral syrup)?10?Milliliter?By Mouth?Daily at bedtime ? Results Recent Labs BLOOD COUNT & DIFF WBC 6.5 k/mm3 ()?? 03/04/2022 14:39 RBC 3.71 m/mm3 (Low)?? 03/04/2022 14:39 Hgb 12.6 Gm/dL ()?? 03/04/2022 14:39 Hct 35.9 % ()?? 03/04/2022 14:39 MCV 96.8 femtoliters ()?? 03/04/2022 14:39 MCH 34.0 pg ()?? 03/04/2022 14:39 MCHC 35.1 g/dL ()?? 03/04/2022 14:39 Platelet Count 249 k/mm3 ()?? 03/04/2022 14:39 RDW-SD 43.8 femtoliters ()?? 03/04/2022 14:39 MPV 8.7 femtoliters (Low)?? 03/04/2022 14:39 Nucleated RBC (Automated) 0.0 #/100 WBC'S ()?? 03/04/2022 14:39 Abs. NRBC 0.0 k/mm3 ()?? 03/04/2022 14:39 Abs. Neut 4.0 k/mm3 ()?? 03/04/2022 14:39 Abs. Lymph 1.9 k/mm3 ()?? 03/04/2022 14:39 Abs. Cole 0.5 k/mm3 ()?? 03/04/2022 14:39 Abs. Eo 0.0 k/mm3 ()?? 03/04/2022 14:39 Abs. Baso 0.0 k/mm3 ()?? 03/04/2022 14:39 Neut % 61.5 % ()?? 03/04/2022 14:39 Lymph % 29.6 % ()?? 03/04/2022 14:39 Cole % 7.6 % ()?? 03/04/2022 14:39 Eos % 0.5 % ()?? 03/04/2022 14:39 Baso % 0.3 % ()?? 03/04/2022 14:39 Imm Gran 0.5 % ()?? 03/04/2022 14:39 Abs. Imm Gran 0.0 k/mm3 ()?? 03/04/2022 14:39 ?? CARDIAC High Sensitivity Troponin (HSTnT) 12 ng/L ()?? 03/04/2022 16:57 ?? CHEM GENERAL Sodium 128 mmol/L (Low)?? 03/04/2022 14:39 Potassium 4.4 mmol/L ()?? 03/04/2022 14:39 Chloride 92 mmol/L (Low)?? 03/04/2022 14:39 Bicarbonate Level 21 mmol/L (Low)?? 03/04/2022 14:39 Anion Gap 15 ()?? 03/04/2022 14:39 Glucose Level 90 mg/dL ()?? 03/04/2022 14:39 Glucose, POC 86 mg/dL ()?? 03/04/2022 14:26 BUN 7 mg/dL (Low)?? 03/04/2022 14:39 Creatinine-Blood 0.6 mg/dL ()?? 03/04/2022 14:39 Estimated GFR Creatinine 98 ML/MIN/1.73 M2 ()?? 03/04/2022 14:39 Calcium 9.1 mg/dL ()?? 03/04/2022 14:39 Protein, Total 6.2 Gm/dL ()?? 03/04/2022 14:39 Albumin 4.2 Gm/dL ()?? 03/04/2022 14:39 AG Ratio 2.1 ()?? 03/04/2022 14:39 Alkaline Phosphatase 101 units/L ()?? 03/04/2022 14:39 AST (SGOT) 13 units/L ()?? 03/04/2022 14:39 ALT (SGPT) 10 units/L ()?? 03/04/2022 14:39 Bilirubin, Total 0.3 mg/dL ()?? 03/04/2022 14:39 ?? COAG INR 1.0 ()?? 03/04/2022 14:39 Protime (PT) 9.9 seconds ()?? 03/04/2022 14:39 APTT 30.5 seconds ()?? 03/04/2022 14:39 ?? VIROLOGY Influenza A PCR NEGATIVE ()?? 03/04/2022 18:35 Influenza B PCR NEGATIVE ()?? 03/04/2022 18:35 RSV PCR NEGATIVE ()?? 03/04/2022 18:35 COVID-19 PCR Specimen Source NASAL ()?? 03/04/2022 18:35 COVID-19 PCR Result NEGATIVE ()?? 03/04/2022 18:35 ? EKG study Event Display: ECG 12-Lead Authored Date: Please click on pdf link to open report Event Display: ECG 12-Lead Authored Date: Ventricular Rate: 65 BPM Atrial Rate: 65 BPM P-R Interval: 170 ms QRS Duration: 80 ms Q-T Interval: 396 ms QTC Calculation(Bazett): 411 ms P [place]: 55 degrees R [place]: 43 degrees T [place]: 48 degrees Normal sinus rhythm Normal ECG When compared with ECG of 16-SEP-2021 00:09, No significant change was found Confirmed by NICK SHAR[facility] ([id number]) on 03/05/2022 8:06:58 PM Gates[facility] Chavez GIRON Kyra: SIGN, VERIFY, PERFORM Event Display: Progress [facility] Authored Date: Patient: LY ROSSI Age: 67 years Sex: Female : 1955 Associated Diagnoses: None Author: Kyra Byrne RN Findings Problem Related to Alteration in Cardiac Function (new) : Alteration in Cardiac Function/new 03/05/2022 23:00 EST Alteration in Cardiac Status Related to Chest pain Goals & Outcomes, Cardiac Status Pt will resume/maintain adequate hemodynamic status Cardiac Interventions Implemented Assess/monitor cardiac status Goals/Interventions, Cardiac Yes Cardiac, Problem Start 03/05/2022 12:20 Reviewed Plan with, Cardiac Status Patient Patient Progression, Cardiac Status Plan Initiation Comment: Cardiac Status see pn . Nursing Data Vital Signs : VITAL SIGNS SECTION 03/05/2022 20:29 EST Temperature 97.1 DegF Temperature Route Oral Pulse Rate 62 bpm Respiratory Rate 18 br/min Systolic Blood Pressure 104 mm Hg Diastolic Blood Pressure 54 mm Hg L Blood pressure sites Arm, right Mean Arterial Pressure 71 mm Hg Pulse Pressure 50 mm Hg Oxygen Saturation 98 % Mode of Delivery (Oxygen) Room air . Evaluation Patient picked up by EMT's at 2250 to be taken to [facility]. Report called on the day shift. Called [facility], spoke to receiving nurse Adamaris, gave update. Patient safely seen off the floor with all her posessions. .Kisha Tejada RN: PERFORM, SIGN, VERIFY Event Display: Progress Note Hospital Authored Date: [id number] Patient: LY ROSSI Age: 67 years Sex: Female : 1955 Associated Diagnoses: None Author: Kisha Tejada RN Findings Problem Related to Alteration in Cardiac Function (new) : Alteration in Cardiac Function/new 03/05/2022 15:00 EST Alteration in Cardiac Status Related to Chest pain Goals & Outcomes, Cardiac Status Pt will resume/maintain adequate hemodynamic status Cardiac Interventions Implemented Assess/monitor cardiac status Goals/Interventions, Cardiac Yes Cardiac, Problem Start 03/05/2022 12:20 Reviewed Plan with, Cardiac Status Patient Patient Progression, Cardiac Status Plan Initiation . Alteration in Comfort : Alteration in Comfort/new 03/05/2022 15:00 EST Alteration in Comfort Related to Disease process Goals & Outcomes: Comfort Non-verbal indicators will indicate comfort/pain control Interventions Implemented: Comfort Assess pain using appropriate pain scale/tools Goals/Interventions, Comfort Yes Comfort, Problem Start 03/05/2022 12:20 Reviewed plan with, Comfort Patient Patient Progression, Comfort Pt progressing according to plan Comfort, Problem Ongoing Yes . Nursing Data Cardiac Data. : Cardiac Data. 03/05/2022 15:00 EST Anterior Tibial Pulse, Left Normal Anterior Tibial Pulse, Right Normal Cardiovascular Symptoms None Nail Bed Color, Fingers [place] Skin Temperature Upper Extremities Warm Skin Temperature Lower Extremities Warm Heart Sounds S1, S2 Cardiac Rhythm Normal sinus rhythm Capillary Refill < 3 seconds Dorsalis Pedis Pulse, Left Normal Dorsalis Pedis Pulse, Right Normal . Vital Signs : VITAL SIGNS SECTION 03/05/2022 15:09 EST Temperature 98.1 DegF Temperature Route Oral Pulse Rate 81 bpm Respiratory Rate 20 br/min Systolic Blood Pressure 103 mm Hg Diastolic Blood Pressure 78 mm Hg Blood pressure sites Arm, right Mean Arterial Pressure 86 mm Hg Pulse Pressure 25 mm Hg Oxygen Saturation 100 % Mode of Delivery (Oxygen) Room air . Narrative/Incidental Pt admitted from ED via w/c pt reports reproducable left and right sided rib pain medication available . Pt is alert oriented x 4 pleasant and cooperative. Magda De Leon RN: PERFORM, SIGN, VERIFY Event Display: Progress Note Hospital Authored Date: Patient: LY ROSSI Age: 67 years Sex: Female : 1955 Associated Diagnoses: None Author: Magda De Leon RN Findings Problem Related to Alteration in Cardiac Function (new) : Alteration in Cardiac Function/new 03/05/2022 12:00 EST Alteration in Cardiac Status Related to Chest pain Goals & Outcomes, Cardiac Status Pt will resume/maintain adequate hemodynamic status Cardiac Interventions Implemented Assess/monitor cardiac status Goals/Interventions, Cardiac Yes Cardiac, Problem Start 03/05/2022 12:20 Reviewed Plan with, Cardiac Status Patient Patient Progression, Cardiac Status Plan Initiation . Alteration in Comfort : Alteration in Comfort/new 03/05/2022 12:00 EST Alteration in Comfort Related to Disease process Goals & Outcomes: Comfort Non-verbal indicators will indicate comfort/pain control Interventions Implemented: Comfort Assess aggravating factors & prevent them accordingly Goals/Interventions, Comfort Yes Comfort, Problem Start 03/05/2022 12:20 Reviewed plan with, Comfort Patient Patient Progression, Comfort Plan Initiation Comfort, Problem Ongoing Yes . Evaluation patient admitted for CP, patient a/ox4, VSS, patient c/o pain to the R scapula. SR on monitor. patient is on RA, lungs CTA. skin noted to be intact. call ulloa and bedside table are within reach, safetymaintained. Note Kyra Byrne RN: PERFORM Event Display: Discharge/Transfer Note Hospital Authored Date: [id number] Nursing Discharge Note Entered On: 03/05/2022 23:06 EST Performed On: 03/05/2022 23:04 EST by Kyra Byrne RN Nursing Discharge Note 2 Discharge Time : 03/05/2022 22:50 EST Discharge Level of Care at Discharge : Short-term Acute Inpatient Name of Receiving Short Term Gen Hosp : [facility] Patient Left Unit Via : Ambulance Patient Accompanied Off Unit with : Ambulance/Chair Van Personnel Handover Given to Transport Personnel : Yes DC Instructions Provided & Signed by Pt : Yes Patient Understands D/C Instructions : Yes Patient Instructions Discharge Signed : Yes Discharge Comments : transferred to [address] [facility] Did Pt have Specialty Bed or Wound Vac : No Kyra Byrne RN - 03/05/2022 23:04 Fatemeh Wu MD: PERFORM Event Display: Discharge/Transfer Note Hospital Authored Date: [id number] Patient: ??LY ROSSI ? Age:??67 Years?Sex:??Female?:??1955?? Patient Information Discharge Location: Med Surg Primary Care Physician: Kelsie Oliver Admit Date/Time: 03/04/22 14:23 Discharge Disposition Discharge Disposition: [facility]?? 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 Primary adenocarcinoma of upper lobe of left lung GERD Hyponatremia Hypertension Anxiety and depression Chronic low back pain Paroxysmal atrial flutter on anticoagulation Primary adenocarcinoma of upper lobe of left lung ([id number]) (C34.12) ? _ Discharge Medications Acetaminophen?975?Milligram?By Mouth?3 times a day?as needed?Pain , Moderate Atorvastatin (atorvastatin 10 mg oral tablet)?See Instructions?TAKE ONE TABLET BY MOUTH ONCE DAILY Cholecalciferol (Vitamin D3)?500?Microgram?By Mouth?Daily Cyanocobalamin (cyanocobalamin 1000 mcg oral tablet)?1,000?Microgram?1?tablet?By Mouth?Daily Diclofenac Topical (Flector Patch 1.3% topical film, extended release)?1?patch(es)?Topically?2 times a day?as needed?for pain Diltiazem (diltiazem 180 mg/24 hours oral capsule, extended release)?180?Milligram?1?capsule?By Mouth?Daily Enoxaparin?0.8?Milliliter?80?Milligram?Subcutaneous Injection?Every 12 hours Gabapentin (gabapentin 100 mg oral capsule)?100?Milligram?1?capsule?By Mouth?3 times a day Lidocaine Topical (lidocaine 5% topical film)?Topically?Daily Lidocaine Topical (lidocaine 5% topical film)?1?patch(es)?Topically?Daily?as needed?Pain , Mild?for 7?Days?remove after 12 hours Lorazepam (LORazepam 0.5 mg oral tablet)?1?tab(s)?0.5?Milligram?By Mouth?2 times aday?as needed?as needed for anxiety Morphine (MorPHINE Inj)?2?Milligram?IV Push Slowly?Every 4 hours?as needed?Pain , Severe Nicotine (nicotine 7 mg/24 hr transdermal film, extended release)?24?hour?7?Milligram?Topically?Daily Ondansetron (Zofran Inj)?4?Milligram?IV Push?Every 6 hours?as needed?Nausea & Vomiting Oxycodone (oxyCODONE 5 mg oral tablet)?5?Milligram?1?tablet?By Mouth?Every 6 hours?as needed?Pain , Moderate Polyethylene Glycol 3350 (MiraLax Powder)?1?pack/packet?17?gram?By Mouth?Daily Senna (Senna 8.8 mg/5 mL oral syrup)?10?Milliliter?By Mouth?Daily at bedtime ? Medications Started Lidocaine patch Schedule Tylenol Gabapentin Therapeutic Lovenox IV morphine Medications Discontinued Eliquis held per neuro interventional attending Allergies Allergies ?(Active and Proposed Allergies Only) [...] Unknown) ?Reactions: rash ? Future Appointments Saturday 3:15 PM EST ?? With: Wen BLANCHARD, Cher Moffett Where: [facility] [address] [place] [address]- Hospital Course 67 year old female with history of left lung adenocarcinoma undergoing radiation therapy, subclaviansteal syndrome followed by vascular, HTN, HLD, chronic hyponatremia, lumbar spinal stenosis, fibromyalgia, atrial flutter who presents with chest pain. ?? Right-sided??chest wall pain for 3 days. right sided rib/trunk pain x3 days, now left sided mid-axillary/scapular pain x 1 day. Worse with palpation and movement favor musculoskeletal etiology??versus pleuritis.?? EKG unchanged from prior.?? Troponin x3??rule out ACS CT chest shows no acute lung pathology to otherwise explain her symptoms. No rash or radiation associated skin changes are seen trial gabapentin as this helped with her fibromyalgia pain in past lidocaine patches scheduled Tylenol has allergy to NSAIDS oxycodone PRN Hemodynamically stable ?? 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 She also mentioned having??left upper extremity weakness??getting worse over last 2 weeks Case discussed with neurology??as well as??neuro endovascular??interventionalists Dr. Epstein ?? plan: MRI brain without contrast to rule out??subacute strok??low suspicion for acute stroke Hold Eliquis, therapeutic Lovenox?? Dr Epstein will evaluate her and consider left subclavian stenting Transfer to [facility] for the same ?? Primary adenocarcinoma of upper lobe of left lung ([id number]) (C34.12):??s/p radiation therapy 02/15- 02/28 ? Hypertension (I10):??continue diltiazem. she was very anxious about her BP being elevated on [place] feels she should go back on lisinopril. It has come down with treatment of her pain, advised will continue to monitor/treat her pain and see how her BP does before new medications ?? Hyponatremia (E87.1):??Na 128, known for chronic??hyponatremia. ??Improved with gentle fluids Paroxysmal atrial flutter (I48.92):??rate is controlled. continue diltiazem and eliquis??changed to therapeutic Lovenox due to??anticipation of neuro endovascular procedure, last dose Eliquis 03/05 a.m. ?? Hyperlipidemia (E78.5):??continue statin ?? Generalized anxiety disorder (F41.1):??takes lorazepam 0.5 mg BID PRN ?? VTE Prophylaxis:??Eliquis, currently therapeutic Lovenox Full code Transfer to [facility] [place], patient??hemodynamically stable,??agreeable for transfer Objective Assessment and Plan ? Vital Signs?? Temperature: 98.1 DegF (03/05/22 15:09:00) Temperature Route: Oral (03/05/22 15:09:00) Pulse Rate: 81 bpm (03/05/22 15:09:00) Respiratory Rate: 20 br/min (03/05/22 15:09:00) Systolic Blood Pressure: 103 mm Hg (03/05/22 15:09:00) Diastolic Blood Pressure: 78 mm Hg (03/05/22 15:09:00) Blood pressure sites: Arm, right (03/05/22 15:09:00) Mean Arterial Pressure: 86 mm Hg (03/05/22 15:09:00) Pulse Pressure: 25 mm Hg (03/05/22 15:09:00) Oxygen Saturation: 100 % (03/05/22 15:09:00) Liters per Minute: 0 L/min (03/05/22 01:42:00) Mode of Delivery (Oxygen): Room air (03/05/22 15:09:00) Early Warning Score: 1 (03/05/22 15:10:28) ? . Physical Exam NAD HEENT: no icterus, mucosa moist Resp: CTABL , No rales/ wheezes/ ronchi, reproducible??chest wall pain on the right subcostal and??right scapular CVS: RRR, No JVD, No Gallop or murmur ABD: soft, NT, ND, NABS Extm : no edema, PP 2+ SEAMLESS TUBE DRAWER: Alert Ox 3, right upper and lower extremity 5/5, left upper and lower extremity??4-5/5, unable to raise left upper extremity??above shoulder level for too long due to pain, perfusion intact in left upper extremity mood : calm cooperative?? Skin: No rash. Warm to touch Pending Results Add On Lab Order ordered on 03/05/2022 COVID-19 (2019 Novel Coronavirus) PCR ordered on 03/05/2022 MRI Brain W/O Contrast ordered on 03/05/2022 Home Health Face to Face ^HomeHealthFTF Results Discharge Labs BLOOD COUNT & DIFF WBC 6.5 k/mm3 ()?? 03/04/2022 14:39 RBC 3.71 m/mm3 (Low)?? 03/04/2022 14:39 Hgb 12.6 Gm/dL ()?? 03/04/2022 14:39 Hct 35.9 % ()?? 03/04/2022 14:39 MCV 96.8 femtoliters ()?? 03/04/2022 14:39 MCH 34.0 pg ()?? 03/04/2022 14:39 MCHC 35.1 g/dL ()?? 03/04/2022 14:39 Platelet Count 249 k/mm3 ()?? 03/04/2022 14:39 RDW-SD 43.8 femtoliters ()?? 03/04/2022 14:39 MPV 8.7 femtoliters (Low)?? 03/04/2022 14:39 Nucleated RBC (Automated) 0.0 #/100 WBC'S ()?? 03/04/2022 14:39 Abs. NRBC 0.0 k/mm3 ()?? 03/04/2022 14:39 Abs. Neut 4.0 k/mm3 ()?? 03/04/2022 14:39 Abs. Lymph 1.9 k/mm3 ()?? 03/04/2022 14:39 Abs. Cole 0.5 k/mm3 ()?? 03/04/2022 14:39 Abs. Eo 0.0 k/mm3 ()?? 03/04/2022 14:39 Abs. Baso 0.0 k/mm3 ()?? 03/04/2022 14:39 Neut % 61.5 % ()?? 03/04/2022 14:39 Lymph % 29.6 % ()?? 03/04/2022 14:39 Cole % 7.6 % ()?? 03/04/2022 14:39 Eos % 0.5 % ()?? 03/04/2022 14:39 Baso % 0.3 % ()?? 03/04/2022 14:39 Imm Gran 0.5 % ()?? 03/04/2022 14:39 Abs. Imm Gran 0.0 k/mm3 ()?? 03/04/2022 14:39 ?? CARDIAC High Sensitivity Troponin (HSTnT) 9 ng/L ()?? 03/05/2022 08:13 ? CHEM GENERAL Sodium 133 mmol/L ()?? 03/05/2022 04:37 Potassium 4.1 mmol/L ()?? 03/05/2022 04:37 Chloride 98 mmol/L ()?? 03/05/2022 04:37 Bicarbonate Level 24 mmol/L ()?? 03/05/2022 04:37 Anion Gap 11 ()?? 03/05/2022 04:37 Glucose Level 90 mg/dL ()?? 03/04/2022 14:39 Glucose, POC 86 mg/dL ()?? 03/04/2022 14:26 BUN 8 mg/dL ()?? 03/05/2022 04:37 Creatinine-Blood 0.6 mg/dL ()?? 03/05/2022 04:37 Estimated GFR Creatinine 98 ML/MIN/1.73 M2 ()?? 03/05/2022 04:37 Calcium 9.1 mg/dL ()?? 03/04/2022 14:39 Phosphorus 4.7 mg/dL (High)?? 03/05/2022 04:37 Magnesium 2.1 mg/dL ()?? 03/05/2022 04:37 Protein, Total 6.2 Gm/dL ()?? 03/04/2022 14:39 Albumin 4.2 Gm/dL ()?? 03/04/2022 14:39 AG Ratio 2.1 ()?? 03/04/2022 14:39 Alkaline Phosphatase 101 units/L ()?? 03/04/2022 14:39 AST (SGOT) 13 units/L ()?? 03/04/2022 14:39 ALT (SGPT) 10 units/L ()?? 03/04/2022 14:39 Bilirubin, Total 0.3 mg/dL ()?? 03/04/2022 14:39 ?? COAG INR 1.0 ()?? 03/04/2022 14:39 Protime (PT) 9.9 seconds ()?? 03/04/2022 14:39 APTT 30.5 seconds ()?? 03/04/2022 14:39 ? HEME OTHER Hold Lavender Top SPECIMEN DISCARDED AFTER 24 HOURS. ()?? 03/05/2022 04:37 ? VIROLOGY Influenza A PCR NEGATIVE ()?? 03/04/2022 18:35 Influenza B PCR NEGATIVE ()?? 03/04/2022 18:35 RSV PCR NEGATIVE ()?? 03/04/2022 18:35 COVID-19 PCR Specimen Source NASAL ()?? 03/04/2022 18:35 COVID-19 PCR Result NEGATIVE ()?? 03/04/2022 18:35 ? 45??minutes spent on discharge CT Head WO contrast BHSPowerscribe , CIS S: TRANSCRIBE Alix SHARPE, [facility]: SIGN Emmanuel SHARPE, Aundrea: VERIFY Event Display: Result: Authored Date: CT Head/Brain W/O Contrast INDICATION: L sided chest pain starting @ 3am. Had radiation Saturday on L chest for lung cancer. Pain under R scalpula. L sided weakness in arms and L. Normal for weakness on L arm due to blockage TECHNIQUE: Noncontrast head CT using axial technique and reconstructed in axial and coronal planes. Iterative reconstruction techniques are used to optimize dose and image quality. CTDIvol Head: 44.46 mGy, DLP Head: 793 mGy*cm. COMPARISON: 12/11/2021. FINDINGS: Statue Carver view findings, lines and tubes: None. BRAIN AND EXTRA-AXIAL SPACES: No parenchymal hemorrhage, midline shift, or mass effect. Bro-white matter differentiation is well preserved. No acute infarct. Negative insular ribbon sign. Atherosclerotic vascular calcification of the carotid arteries but negative hyperdense vessel sign. Mild prominence of the ventricles and sulci consistent with parenchymal volume loss. No white matter lesions. No subarachnoid hemorrhage. No subdural or epidural collection. CALVARIUM, SKULL BASE, AND SOFT TISSUES: No fractures or suspicious bony lesions. The paranasal sinuses and mastoid air cells are clear. Visualized orbits and globes are intact. The extracranial soft tissues are unremarkable. IMPRESSION: No acute intracranial pathology. I have personally reviewed the images and I agree with this report. WSN: [id number] Ordering Physician: Kenna Connors Dictated By: Serina Thomson MD Dictated Date/Time: 03/04/22 3:24 pm Reviewed By: Aundrea Benitez MD Signed By: Aundrea Benitez MD Signed Date/Time: 03/04/22 3:29 pm Transcribed By: SHAHNAZ Transcribed Date/Time: 03/04/22 3:[address] Chest W contrast IV BHSPowerscribe , CIS S: TRANSCRIBE S[employer]ero[Radiology] , Amninder: SIGN Aundrea Benitez MD: VERIFY Event Display: Result: Authored Date: [id number] CT Chest W/ Contrast INDICATION: Hx of Present Illness: L sided chest pain starting @ 3am. Had radiation Saturday on L chest for lung cancer. Pain under R scalpula. L sided weakness in arms and L. Normal for weakness on Larm due to blockage; Reason: Other:; Stroke; Clinical Question(s): CHF TECHNIQUE: Helical CT scan of the chest with IV contrast, formatted in 3 planes. 75 cc of Omnipaque 300 was administered intravenously. Weight-based protocol was performed using automatic exposure control. COMPARISON: 01/17/2022, PET CT 12/28/2021, MR abdomen 10/08/2021. FINDINGS: Statue Carver view findings, lines and tubes: None. Trachea and airways: Patent without evidence of tracheal or endobronchial lesion. Lungs and pleura: Decreased size of left upper lobe biopsy-proven 1 x 0.8 cm adenocarcinoma, previously 1.5 x 0.8 cm. Interval decrease in the triangular nodule along the left fissure, series 5, image 54, which may reflect an intrapulmonary lymph node. No new pulmonary nodules identified. Mild bibasilar atelectasis. No effusion or pneumothorax. Mediastinum and irina: No mass or hematoma. No mediastinal or hilar lymphadenopathy. No esophageal abnormality. Partially imaged thyroid is unremarkable. Heart: Heart is normal in size. No pericardial effusion. Severe coronary artery calcification. Aorta: Severe atherosclerotic vascular calcification but no aneurysm. Pulmonary arteries: The main pulmonary artery is dilated to 3.8 cm. Moderate respiratory motion artifact decreases sensitivity, but there is no evidence of pulmonary embolism on this study performed without angiographic technique. Chest wall soft tissues: No acute abnormality. Diaphragm: Intact. Upper abdomen: Unchanged left adrenal 1.8 cm and right adrenal 2.2 cm low- attenuation nodules. Thesedemonstrated the mild activity on the PET CT 12/28/2021 and are consistent with lipid rich adenomas on CT abdomen 01/12/2022. Subcentimeter low-attenuation lesion within the hepatic segment 2 correlates with a T2 hyperintense lesion on MR abdomen 10/08/2021 and likely represents a simple cyst. Bones: No acute abnormality. IMPRESSION: 1. Interval decrease size of left upper lobe biopsy proven the 1 cm adenocarcinoma, previously 1.5 cm. 2. Unchanged bilateral adrenal nodules. 3. Enlarged pulmonary arteries which can be seen with pulmonary hypertension. I have personally reviewed the images and I agree with this report. WSN: [id number] Ordering Physician: Kenan Connors Dictated By: Sotero[Radiology] Josafat SHARPE Dictated Date/Time: 03/04/22 3:52 pm Reviewed By: Aundrea Benitez MD Signed By: Aundrea Benitez MD Signed Date/Time: 03/04/22 3:57 pm Transcribed By: SHAHNAZ Transcribed Date/Time: 03/04/22 3:39 pm CTA Neck vessels W contrast IV BHSPowerscribe , CIS S: TRANSCRIBE Salvador Infante MD: VERIFY Event Display: Result: Authored Date: [id number] CT Angio Head, CT Angio Neck Hx of Present Illness: L sided chest pain starting @ 3am. Had radiation Saturday on L chest for lung cancer. Pain under R scapula. L sided weakness in arms and L. Normal for weakness on L arm due to blockage; Reason: Other:; Stroke; Clinical Question(s): Other:; Hematoma Aneurysm / Other: TECHNIQUE: CT angiogram of the head and [...] exposure parameters. RADIATION DOSE PARAMETERS: CTDIvol Body: 9.71 mGy, DLP Body: 1031 mGy*cm. COMPARISON: Noncontrast CT head performed concurrently and prior CTAs on 12/11/2021. FINDINGS: There is a 3 vessel arch. Mural [...] with an occlusion, progressed since prior study. The right common carotid artery is normal in caliber. The right carotid bulb has mural calcifications extending to the right proximal internal carotid artery. The right proximal ICA shows 20% stenosis by NASCET criteria. The left common carotid artery is normal in caliber. The left carotid bulb has mural calcifications extending to the left proximal internal carotid artery. The left proximal ICA shows 50% stenosis by NASCET criteria. Right vertebral artery: Dominant. Patent without stenosis. Left vertebral artery: The V1 and proximal V2 segments are not visualized consistent an occlusion, new since prior study. The more distal cervical segments are patent without stenosis. Cervical spine: Mild spondylosis. No acute pathology. Soft tissues and lung apices: The 1 cm spiculated nodule in the visualized left upper lobe is again seen, consistent with patient's history of malignancy. Mild dependent atelectasis is noted the bilaterally. Bilateral thyroid lobes are normal. There is no definite abnormality throughout the soft tissue neck. [place] of De: Concurrent CT of head showed no acute pathology. Bilateral internal carotid arteries at the skull base have mural calcifications. No definite stenosis is seen. Bilateral posterior communicating arteries are not visualized. No posterior communicating artery aneurysm is seen. Bilateral ACAs, MCAs and their branches are patent. No stenosis or vessel cut off is seen. No definite aneurysm is noted. Bilateral intracranial vertebral arteries are normal in calibers. No definite stenosis is seen. The vertebrobasilar junction is normal. The basilar artery is normal. No stenosis or dissection is seen. There is no basilar tip aneurysm. Bilateral floor layer helper and their branches are patent. The superior sagittal sinuses, the straight sinus, bilateral transverse and sigmoid sinuses: Patent without dural sinus thrombosis. IMPRESSION: No cutoff or high-grade stenosis of the major branches of the intracranial arteries. No aneurysm, stenosis, or vascular malformations present. The right proximal internal carotid artery show 20% % stenosis by NASCET criteria. The left proximal internal carotid artery show 50% stenosis by NASCET criteria. The right cervical vertebral artery shows no significant stenosis. The left subclavian artery is occluded from the segment of approximately 2 cm above its origin. Thisappears progressed since prior study. The V1 and proximal V2 segments of the left vertebral artery are not visualized consistent with an occlusion, new since prior. The rest shows no significant stenosis. REFERENCE: NASCET Criteria: The degree of internal carotid stenosis is based on NASCET Criteria: Normal: No stenosis Mild: Less than 50% stenosis Moderate: 50-69% stenosis Severe: 70-99% stenosis Total occlusion: No detectable patent lumen. The preliminary report was given by [facility]. The occlusion of the left subclavian artery and the left proximal vertebral arteries were not mentioned in the report. A critical result message (Simpson) has been communicated via the [employer] system on 03/05/2022 9:45 AM, Message ID [id number]. WSN: [id number] Ordering Physician: Kenan Connors Dictated By: Salvador Infante MD Dictated Date/Time: 03/05/22 9:56 am Reviewed By: Salvador Infante MD Signed By: Salvador Infante MD Signed Date/Time: 03/05/22 9:56 am Transcribed By: SHAHNAZ Transcribed Date/Time: 03/05/22 9:52 am CTA Head vessels W contrast IV BHSPowerscribe , CIS S: TRANSCRIBE Salvador Infante MD: VERIFY Event Display: Result: Authored Date: [id number] CT Angio Head, CT Angio Neck Hx of Present Illness: L sided chest pain starting @ 3am. Had radiation Saturday on L chest for lung cancer. Pain under R scapula. L sided weakness in arms and L. Normal for weakness on L arm due to blockage; Reason: Other:; Stroke; Clinical Question(s): Other:; Hematoma Aneurysm / Other: TECHNIQUE: CT angiogram of the head and [...] exposure parameters. RADIATION DOSE PARAMETERS: CTDIvol Body: 9.71 mGy, DLP Body: 1031 mGy*cm. COMPARISON: Noncontrast CT head performed concurrently and prior CTAs on 12/11/2021. FINDINGS: There is a 3 vessel arch. Mural [...] with an occlusion, progressed since prior study. The right common carotid artery is normal in caliber. The right carotid bulb has mural calcifications extending to the right proximal internal carotid artery. The right proximal ICA shows 20% stenosis by NASCET criteria. The left common carotid artery is normal in caliber. The left carotid bulb has mural calcifications extending to the left proximal internal carotid artery. The left proximal ICA shows 50% stenosis by NASCET criteria. Right vertebral artery: Dominant. Patent without stenosis. Left vertebral artery: The V1 and proximal V2 segments are not visualized consistent an occlusion, new since prior study. The more distal cervical segments are patent without stenosis. Cervical spine: Mild spondylosis. No acute pathology. Soft tissues and lung apices: The 1 cm spiculated nodule in the visualized left upper lobe is again seen, consistent with patient's history of malignancy. Mild dependent atelectasis is noted the bilaterally. Bilateral thyroid lobes are normal. There is no definite abnormality throughout the soft tissue neck. [place] of De: Concurrent CT of head showed no acute pathology. Bilateral internal carotid arteries at the skull base have mural calcifications. No definite stenosis is seen. Bilateral posterior communicating arteries are not visualized. No posterior communicating artery aneurysm is seen. Bilateral ACAs, MCAs and their branches are patent. No stenosis or vessel cut off is seen. No definite aneurysm is noted. Bilateral intracranial vertebral arteries are normal in calibers. No definite stenosis is seen. The vertebrobasilar junction is normal. The basilar artery is normal. No stenosis or dissection is seen. There is no basilar tip aneurysm. Bilateral floor layer helper and their branches are patent. The superior sagittal sinuses, the straight sinus, bilateral transverse and sigmoid sinuses: Patent without dural sinus thrombosis. IMPRESSION: No cutoff or high-grade stenosis of the major branches of the intracranial arteries. No aneurysm, stenosis, or vascular malformations present. The right proximal internal carotid artery show 20% % stenosis by NASCET criteria. The left proximal internal carotid artery show 50% stenosis by NASCET criteria. The right cervical vertebral artery shows no significant stenosis. The left subclavian artery is occluded from the segment of approximately 2 cm above its origin. Thisappears progressed since prior study. The V1 and proximal V2 segments of the left vertebral artery are not visualized consistent with an occlusion, new since prior. The rest shows no significant stenosis. REFERENCE: NASCET Criteria: The degree of internal carotid stenosis is based on NASCET Criteria: Normal: No stenosis Mild: Less than 50% stenosis Moderate: 50-69% stenosis Severe: 70-99% stenosis Total occlusion: No detectable patent lumen. The preliminary report was given by [facility]. The occlusion of the left subclavian artery and the left proximal vertebral arteries were not mentioned in the report. A critical result message (Simpson) has been communicated via the [employer] system on 03/05/2022 9:45 AM, Message ID [id number]. WSN: [id number] Ordering Physician: Kenan Connors Dictated By: Salvador Infante MD Dictated Date/Time: 03/05/22 9:56 am Reviewed By: Salvador Infante MD Signed By: Salvador Infante MD Signed Date/Time: 03/05/22 9:56 am Transcribed By: SHAHNAZ Transcribed Date/Time: 03/05/22 9:52 am Patient Care team information Care Team PersonnelName: Kelsie Oliver Position: S [facility]O Associate Professional Member Role: PCP Address: Address: [address] [place] [address]- [place] Name: Kyra Byrne RN [facility] RN Member Role: Primary Care Nurse Name: Ryan Blackmon DO Position: [facility] Physician -Physician Practices Member Role: Lifetime Consulting Physician Address: Address: [address] [address]- [place] Name: Karen Stearns RN Position: [facility] RN Member Role: Primary Care Nurse Name: Vandana Hu RN Position: [facility] RN Member Role: Primary Care Nurse Name: Ani LEONARD Attending Position: [facility] ED Medicine MD Name: Kenan Connors MD Position: [facility] ED Medicine MD Member Role: ED Attending Physician Address: Address: [address] [facility] [place] [address]- [place] Name: Winnie Bryan Position: [facility] ED [facility] Member Role: Patient Care Provider Care Team Related PersonsName: SILVER ROSSI Name: LASHAY MORLEY Address: [address] [address]
--- OUTSIDE RECORDS SUMMARY | 2022-04-27 19:48 | XMS_ITS | Continuity of Care Document ---
:1955 Author Organization [facility] Address [address] [place] [address]- Care Team Providers Name Role Phone Kelsie Oliver Primary Care Physician Encounter [facility] Date(s): 03/09/20 - 04/08/20 [facility] [address] [place] [id number] Allergies, Adverse Reactions, Alerts [...] 5 mg, 1, tablet, By Mouth, Daily, for 90 days, # 90 tablet, Refills 1, Tot. Refills 1, Hard Stop 04/09/20 9:33:00 EST, 10/12/19 9:33:00 EDT, Route to Pharmacy Electronically, [facility], 160.2,cm, 10/02/19 13:49:00 EDT, Height Start Date: 10/12/19 Stop Date: 04/09/20 Status: OrderedamLODIPine 5 mg oral tablet 5 mg, 1, tablet, By Mouth, Daily, # 90 tablet, Refills 0, Tot. Refills 0, Maintenance, 04/09/20 9:33:00 EST, Route to Pharmacy Electronically, [facility], 160.2, cm, 03/24/20 12:29:00 EST, Height Start Date: 04/09/20 Stop Date: 07/08/20 Status: OrderedAspirin 81, mg, By Mouth, Daily, 0, 0, 04/12/06 11:40:18, Print RADHA Number, [id number], Constant Indicator Start Date: 04/12/06 Status: OrderedColace [...] tablet = 10 mg, By Mouth, Daily, for 90 days, # 90 tablet, 1 Refills, Hard Stop 04/09/20 9:33:00 EST, 10/12/19 9:33:00 EDT, Tablet, [facility], 160.2, cm, 10/02/19 13:49:00 EDT, Height Start Date: 10/12/19 Stop Date: 04/09/20 Status: OrderedLipitor 10 mg oral tablet 1 [...] 0 Refills, Maintenance, 04/01/20 13:38:00 EST, Tablet, [facility], 160.2, [...] tablet, 0 Refills, Maintenance, 03/10/20 8:59:00 EST, [facility], Partial fill upon patient request., [...] 03/10/20 8:59:00 EST, Route to Pharmacy Electronically, [facility], 160.2, cm, 02/18/20 10... Start [...] Active Vitamin D deficiency(Confirmed) Active 1neg stress [id number] back pain DOI 04/08/[id number] Oswestry Disability Index: 62% ( crippled ) on 06/30/18; initial [place] Back Pain Scale: 81 on goal < 130 smoker, [id number] point injections-neuro Dr HollowayFpbhnh4oism management per Dr Alexis hartland- [id number] [id number] joint dysfunction status post [id number] 05/24 degenerative changes, L5 S1 facet joint inflam-[id number] score 0.6 hip, 5.7 [id number]-H: 15 on 2ACE score: 6 on 11/11/18 Social History Social History Type Response Smoking Status 10 or more cigarettes (1/2 p ack or more)/day in last 30 days; Type: Cigarettes; Other: 1ppd-1/2ppd; Started at age: 24; entered on: 09/22/18 Sex
[2022-04-27 20:00] VITALS: BP 142/68; PULSE 85; RESP 16; TEMP 36.2; O2SAT 98
[2022-04-27] MEDS: Apixaban 5 MG TABLET PO (21:49)
[2022-04-27] MEDS: Docusate Sodium 100 MG CAPSULE PO (21:50)
[2022-04-27] MEDS: Sennosides 8.6 MG TABLET PO (21:51)
[2022-04-27] MEDS: LORazepam 0.5 MG TABLET PO (21:51)
[2022-04-27] MEDS: oxyCODONE HCl Immed Release 5 MG TABLET PO (22:03)
--- NOTE | 2022-04-28 00:41 | PC.ADMIT ---
PT is a 67 year old female, A+Ox4. PT arrived to unit on CV from [facility]. PT is known to this unit from 02/05. PT put on 15 minute safety checks. PT med compliant and cooperative during assessment. Nurse to nurse completed and PT admitted by MD Rodriguez. PT reports numerous medical issues including a recent diagnosis of lung cancer. PT reports she has been crying a lot and fearful to leave the house. PT has psych diagnosis of anxiety and depression.
[2022-04-28] MEDS: traZODone HCL 50 MG TABLET PO (02:06)
[2022-04-28 06:00] VITALS: BP 165/79; PULSE 79; RESP 18; TEMP 36.6; O2SAT 99
[2022-04-28] MEDS: Apixaban 5 MG TABLET PO ×2 (08:54→20:51)
[2022-04-28] MEDS: Docusate Sodium 100 MG CAPSULE PO ×2 (08:54→20:51)
[2022-04-28] MEDS: Venlafaxine HCl ER 37.5 MG CAP.ER.24H PO (08:54)
[2022-04-28] MEDS: amLODIPine Besylate 2.5 MG TABLET PO (08:55)
[2022-04-28] MEDS: LORazepam 0.5 MG TABLET PO ×2 (09:06→17:55)
[2022-04-28] MEDS: oxyCODONE HCl Immed Release 5 MG TABLET PO ×2 (10:45→17:54)
[2022-04-28] MEDS: Acetaminophen 325 MG TABLET 650 MG PO ×2 (10:46→17:45)
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
[2022-04-28] MEDS: polyethylene glycoL 3350 17 GM POWD.PACK PO (14:40)
[2022-04-28 14:59] VITALS: BMI 28.0
[2022-04-28] MEDS: hydrOXYzine HCL 25 MG TABLET PO ×2 (16:13→23:41)
[2022-04-28] MEDS: Artificial Tears 15 ML DROPS 1 DROP EYE-BOTH ×2 (16:47→21:29)
[2022-04-28 18:18] LABS: MANUAL DIFF FLAG NO
[2022-04-28 18:19] LABS: Basophils Percent Auto 0.3 % (0-2); Eosinophils Absolute Auto 0.1 X10*3/uL (0.0-0.4); Eosinophils Percent Auto 1.7 % (0-4); Hematocrit 35.9 % (37.0-47.0); Hemoglobin 12.3 g/dl (12.0-16.0); Imm Gran Abs Auto 0.01 X10*3/uL (0.00-0.03); Imm Gran Pct Auto 0.2 % (0.0-0.4); Lymphocytes Absolute Auto 2.4 X10*3/uL (1.2-4.9); Lymphocytes Percent Auto 35.6 % (20-40); Mean Corpuscular HGB Conc 34.3 g/dl (31.0-35.0); Mean Corpuscular Hemoglobin 33.8 pg (27.0-33.0); Mean Corpuscular Volume 98.6 fL (80.0-98.0); Mean Platelet Volume 8.5 fL (9.4-12.3); Monocytes Absolute Auto 0.5 X10*3/uL (0.1-1.2); Monocytes Percent Auto 6.8 % (2-11); Neutrophils Absolute Auto 3.7 x10*3/uL (2.0-8.3); Neutrophils Percent Auto 55.4 % (45-73); Platelet Count 255 X10*3/uL (160-400); Red Blood Count 3.64 X10*6/uL (4.20-5.50); Red Cell Distribution Width 13.7 % (11.0-16.0); White Blood Count 6.6 X10*3/uL (4.8-10.8)
[2022-04-28 18:43] LABS: Alanine Aminotransferase 12 U/L (0-31); Albumin Level 3.9 g/dL (3.5-5.0); Alkaline Phosphatase 104 U/L (39-117); Anion Gap 14 (12-20); Aspartate Amino Transferase 15 U/L (5-31); Bilirubin Total 0.2 mg/dL (0.0-1.0); Blood Urea Nitrogen 10 mg/dL (9-16); Calcium 8.9 mg/dL (8.4-10.2); Carbon Dioxide 24 mmol/L (22-29); Chloride 98 mmol/L (96-108); Creatinine Clr Calc Pharmacy 84.5; Estimated Glomerular Filt Rate > 60; Glucose Fasting 105 mg/dL (60-99); Magnesium 2.1 mg/dL (1.6-2.6); Potassium 4.3 mmol/L (3.3-5.1); Sodium 132 mmol/L (135-145); Total Protein 5.9 g/dL (6.5-8.0)
[2022-04-28 19:12] LABS: Folate 10.4 ng/mL (> or = 4.0); Vitamin B12 470 pg/mL (200-900)
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
[2022-04-28 19:44] VITALS: BP 129/62; PULSE 88; RESP 18; TEMP 36.2; O2SAT 95
[2022-04-28] MEDS: Sennosides 8.6 MG TABLET PO (20:51)
[2022-04-28 22:00] VITALS: BP 140/65; PULSE 67
[2022-04-28 22:05] VITALS: BP 143/68; PULSE 68
[2022-04-28 22:10] VITALS: BP 146/72; PULSE 69
[2022-04-28] MEDS: Melatonin 3 MG TABLET 9 MG PO (22:50)
[2022-04-29] MEDS: LORazepam 0.5 MG TABLET PO ×2 (03:37→15:32)
[2022-04-29] MEDS: Acetaminophen 325 MG TABLET 650 MG PO (03:42)
[2022-04-29] MEDS: oxyCODONE HCl Immed Release 5 MG TABLET PO ×3 (04:48→21:38)
[2022-04-29 06:00] VITALS: BP 136/71; PULSE 115; RESP 20; TEMP 36.1; O2SAT 99
[2022-04-29] MEDS: polyethylene glycoL 3350 17 GM POWD.PACK PO (08:53)
[2022-04-29] MEDS: Docusate Sodium 100 MG CAPSULE PO ×2 (08:54→20:30)
[2022-04-29] MEDS: amLODIPine Besylate 2.5 MG TABLET PO (08:54)
[2022-04-29] MEDS: Apixaban 5 MG TABLET PO ×2 (08:54→20:30)
[2022-04-29] MEDS: Venlafaxine HCl ER 37.5 MG CAP.ER.24H PO (08:54)
[2022-04-29] MEDS: hydrOXYzine HCL 25 MG TABLET PO ×2 (09:04→18:51)
[2022-04-29] MEDS: Artificial Tears 15 ML DROPS 1 DROP EYE-BOTH ×2 (12:02→18:51)
--- NOTE | 2022-04-29 12:24 | P.PNPSI_ITS ---
Subjective Subjective Date of Service: 04/29/22 Reason For Visit: Depression Subjective Notes: Conditional Voluntary Interim History: pt very anxious and somatically preoccupied; easily tearful; report anxiety and depression; fearful of meds. reports chronic pain at SI joint, back, neck. Medication Compliance: Yes Side effects from medications: No Attending Groups: No Review of Systems Acute medical concerns: No Review of Systems Review of Systems Chronic lower back pain Upper middle back and shoulder pain x2 months Lower right ribcage pain x1 month Denies chest pain/pressure, palpitations No shortness of breath Denies abdominal pain Yes all other systems are reviewed and are negative Gastrointestinal: Reports constipation Musculoskeletal: Reports back pain, Reports arthralgias and Reports tingling Skin/Breast: Reports pruritus Reports tingling Psychiatric: Reports anxiety, Reports depression, Reports difficulty concentrating and Reports anhedonia Mental Status Exam Mental Status Exam Patient Appearance: Well Grooomed and Appropriate Patient Orientation: Person, Place, Time and Situation Level of Consciousness: Awake Patient Behavior: Appropriate, Cooperative, Anxious and Good Eye Contact Mood Description: Depressed and Anxious Affect Description: Depressed and Anxious Patient Cognition Impaired: No Ability to Follow Directions: Good Speech Pattern: Clear Memory Description: Intact Thought Process: Distracted and Rumination Thought Content: positive for Preoccupation Depressive Symptoms: Increased Anxiety, Insomnia, Diff. Making Decisions, Muscle Tension, Difficulty Sleeping, Muscle Pain, Crying Spells and Loss of Int. in Activity Judgement: Fair Diagnostics Vital Signs (24Hr): Vital Signs - 24 hr 04/28/22 19:44 04/28/22 22:00 04/28/22 22:05 Temperature 97.1 F Pulse Rate 88 67 68 Respiratory Rate 18 Blood Pressure 129/62 140/65 H 143/68 H Pulse Oximetry 95 Oxygen Delivery Method Room Air 04/28/22 22:10 04/29/22 06:00 Temperature 96.9 F Pulse Rate 69 115 H Respiratory Rate 20 Blood Pressure 146/72 H 136/71 Pulse Oximetry 99 Oxygen Delivery Method Room Air BMI result Body Mass Index 28.0 Labs 04/28/22 17:59 04/28/22 17:59 Labs: Laboratory Results - last 48 hr 04/28/22 04/28/22 17:59 17:59 WBC 6.6 RBC 3.64 L Hgb 12.3 Hct 35.9 L MCV 98.6 H MCH 33.8 H MCHC 34.3 RDW 13.7 Plt Count 255 MPV 8.5 L Immature Gran % (Auto) 0.2 Neut % (Auto) 55.4 Lymph % (Auto) 35.6 [place] % (Auto) 6.8 Eos % (Auto) 1.7 Baso % (Auto) 0.3 Lymph # (Auto) 2.4 [place] # (Auto) 0.5 Eos # (Auto) 0.1 Baso # (Auto) 0.0 Abs Immat Gran (auto) 0.01 Absolute Neuts (auto) 3.7 Absolute Nucleated RBC 0.000 Nucleated RBC % (auto) 0.0 Sodium 132 L Potassium 4.3 Chloride 98 Carbon Dioxide 24 Anion Gap 14 BUN 10 Creatinine 0.61 Estim Creat Clear Calc 84.5 Estimated GFR > 60 Fasting Glucose 105 H Calcium 8.9 Magnesium 2.1 Total Bilirubin 0.2 AST 15 ALT 12 Alkaline Phosphatase 104 Total Protein 5.9 L Albumin 3.9 Vitamin B12 470 Folate 10.4 Medications Medications Current Medications Acetaminophen (Acetaminophen 325 Mg Tablet) 650 mg PO Q6H PRN PRN Reason: Headache/Pain Mild Scale (1-3) Last Admin: 04/29/22 03:42 Dose: 650 mg Al Hydroxide/Mg Hydroxide (Magnesium Hydrox/Alum Hydrox 30 Ml Oral.Susp) 30 ml PO Q6H PRN PRN Reason: Heartburn/Nausea Amlodipine Besylate (Amlodipine Besylate 2.5 Mg Tablet) 2.5 mg PO DAILY [facility]; Protocol Last Admin: 04/29/22 08:54 Dose: 2.5 mg Apixaban (Apixaban 5 Mg Tablet) 5 mg PO BID [facility] Last Admin: 04/29/22 08:54 Dose: 5 mg Artificial Tears (Artificial Tears 15 Ml Drops) 1 drop EYE-BOTH Q4H PRN PRN Reason: dry eyes, irritation Last Admin: 04/29/22 12:02 Dose: 1 drop Atorvastatin Calcium (Atorvastatin Calcium 10 Mg Tablet) 10 mg PO BEDTIME [facility] Docusate Sodium (Docusate Sodium 100 Mg Capsule) 100 mg PO BID [facility] Last Admin: 04/29/22 08:54 Dose: 100 mg Famotidine (Famotidine 20 Mg Tablet) 20 mg PO BEDTIME [facility] Last Admin: 04/28/22 20:48 Dose: Not Given Hydroxyzine HCl (Hydroxyzine Hcl 25 Mg Tablet) 25 mg PO Q6H PRN PRN Reason: Anxiety Last Admin: 04/29/22 09:04 Dose: 25 mg Lidocaine (Lidocaine 4 % Patch Adh..Patch) 1 patch TRANSDERMA DAILY [facility]; Protocol Last Admin: 04/29/22 08:53 Dose: Not Given Lorazepam (Lorazepam 0.5 Mg Tablet) 0.5 mg PO Q8H PRN PRN Reason: Anxiety Last Admin: 04/29/22 03:37 Dose: 0.5 mg Magnesium Hydroxide (Milk Of Magnesia 30 Ml Oral.Susp) 30 ml PO DAILY PRN PRN Reason: Constipation Melatonin (Melatonin 3 Mg Tablet) 9 mg PO BEDTIME PRN PRN Reason: sleep Last Admin: 04/28/22 22:50 Dose: 9 mg Nystatin (Nystatin Powder 15 Gm Bottle) 1 appl TOPICAL BID PRN; Protocol PRN Reason: rash Omeprazole (Omeprazole 20 Mg Capsule.Dr) 20 mg PO DAILY [facility] Last Admin: 04/29/22 12:02 Dose: Not Given Oxycodone HCl (Oxycodone Hcl Immed Release 5 Mg Tablet) 5 mg PO BID PRN PRN Reason: pain, moderate Last Admin: 04/29/22 04:48 Dose: 5 mg Polyethylene Glycol (Polyethylene Glycol 3350 17 Gm Powd.Pack) 17 gm PO DAILY [facility] Last Admin: 04/29/22 08:53 Dose: 17 gm Senna (Sennosides 8.6 Mg Tablet) 8.6 mg PO BEDTIME [facility] Last Admin: 04/28/22 20:51 Dose: 8.6 mg Trazodone HCl (Trazodone Hcl 50 Mg Tablet) 50 mg PO BEDTIME MRX1 PRN PRN Reason: Insomnia Last Admin: 04/28/22 02:06 Dose: 50 mg Venlafaxine HCl (Venlafaxine Hcl Er 37.5 Mg Cap.Er.24h) 37.5 mg PO DAILY [facility] Last Admin: 04/29/22 08:54 Dose: 37.5 mg Allergies Allergies Allergy/AdvReac Type Severity Reaction Status Date / Time amoxicillin Allergy Unknown Verified 01/19/21 17:49 NSAIDS (Non-Steroidal Allergy Unknown Verified 01/19/21 17:49 Anti-Inflamma Penicillins Allergy Unknown Verified 01/19/21 17:49 Sulfa (Sulfonamide Allergy Unknown Verified 01/19/21 17:49 Antibiotics) tetracycline Allergy Unknown Verified 01/19/21 17:49 Tetracyclines Allergy Unknown Verified 01/19/21 17:49 Assessment & Plan Assessment & Plan (1) Major depressive disorder: Status: Acute Code(s): F32.9 - Major depressive disorder, single episode, unspecified (2) Panic disorder with agoraphobia: Status: Acute Code(s): F40.01 - Agoraphobia with panic disorder (3) Chronic right SI joint pain: Status: Acute Code(s): M53.3 - Sacrococcygeal disorders, not elsewhere classified; G89.29 - Other chronic pain (4) Herniated cervical disc: Status: Acute Code(s): M50.20 - Other cervical disc displacement, unspecified cervical region (5) GERD (gastroesophageal reflux disease): Status: Acute Code(s): K21.9 - Gastro-esophageal reflux disease without esophagitis Plan Patient's 67-year-old female with anxiety panic attacks and depression in cont ext of multiple medical concerns: a PMH significant for hx of AFib on Eliquis HTN, HLD, GERD, depression, anxiety, panic disorder with agoraphobia, chronic hyponatremia, and IBS Plan: collateral contact with out patient provider consider increase effexor vs altrnative antidepressant/anxiolytic ekg pending lidocaine patch changes to lidocain gel due to adhesive allergy discharge planning Per Hospitalist : Pain mgt with oxycodone 5 mg TID prn Acetaminophen, lidocaine patch for pain management Follow-up outpatient with PCP Paroxysmal AFib Continue Eliquis HTN Continue amlodipine HLD Continue atorvastatin Chronic constipation Continue laxatives GERD Continue pantoprazole Patient educated on: diagnosis, medication risk/benefits, therapeutic strategies and medical condition Informed Consent: understands and further education needed Reason for contiued inpatient stay Substantial Risk for: inability to function, rapid decompensation and med/psych decompensation Time Spent With Patient Time: Total time managing care of this patient today __45__ minutes.
[2022-04-29] MEDS: Nystatin Powder 15 GM BOTTLE 1 APPL TOPICAL (14:25)
[2022-04-29] MEDS: Milk of Magnesia 30 ML ORAL.SUSP PO (15:49)
[2022-04-29 18:00] VITALS: BP 168/73; PULSE 77; RESP 16; TEMP 35.7; O2SAT 96
[2022-04-29] MEDS: Atorvastatin Calcium 10 MG TABLET PO (20:30)
[2022-04-29] MEDS: Sennosides 8.6 MG TABLET PO (20:30)
[2022-04-30] MEDS: traZODone HCL 50 MG TABLET PO (01:19)
[2022-04-30 06:00] VITALS: BP 117/72; PULSE 86; RESP 18; TEMP 36.1
[2022-04-30] MEDS: amLODIPine Besylate 2.5 MG TABLET PO (09:27)
[2022-04-30] MEDS: Apixaban 5 MG TABLET PO ×2 (09:27→22:05)
[2022-04-30] MEDS: Venlafaxine HCl ER 37.5 MG CAP.ER.24H PO (09:27)
[2022-04-30] MEDS: Docusate Sodium 100 MG CAPSULE PO ×2 (09:27→22:04)
[2022-04-30] MEDS: oxyCODONE HCl Immed Release 5 MG TABLET PO ×2 (09:34→17:58)
[2022-04-30] MEDS: LORazepam 0.5 MG TABLET PO ×2 (09:34→22:05)
[2022-04-30] MEDS: Nystatin Powder 15 GM BOTTLE 1 APPL TOPICAL (09:38)
[2022-04-30] MEDS: polyethylene glycoL 3350 17 GM POWD.PACK PO (09:38)
[2022-04-30] MEDS: Artificial Tears 15 ML DROPS 1 DROP EYE-BOTH (09:38)
[2022-04-30] MEDS: Acetaminophen 325 MG TABLET 650 MG PO (12:48)
[2022-04-30] MEDS: Milk of Magnesia 30 ML ORAL.SUSP PO (12:49)
--- NOTE | 2022-04-30 13:22 | P.PNPSI_ITS ---
Subjective Subjective Date of Service: 04/30/22 Reason For Visit: Depression Subjective Notes: Conditional Voluntary Interim History: The nursing staff reported the patient had been very tearful, anxious and been very level mood. Apparently she was diagnosed of lung cancer in January of 2022 after she was discharged from this facility last year. The occupational therapist reported that she has court on the [place] and her [place] test was 5.0. On interview the patient reports that she is feeling very dysphoric, that Effexor is not working and she tried in the past Pamelor that we started here with poor results. I contact her regular psychiatrist Dr. Mckenzie and she agreed to cross taper her to Cymbalta and add a low dose of Abilify. Mental Status Exam Mental Status Exam Patient Appearance: Well Grooomed and Appropriate Patient Orientation: Person, Place, Time and Situation Level of Consciousness: Awake and Alert Mood Description: Depressed Affect Description: Constricted and Labile Patient Cognition Impaired: Yes Ability to Follow Directions: Good Speech Pattern: Clear Hallucinations: None Delusions: Not Present Thought Process: Distracted Thought Content: positive for [place] and positive for Linear Judgement: Fair Diagnostics Vital Signs (24Hr): Vital Signs - 24 hr 04/29/22 18:00 04/30/22 06:00 Temperature 96.3 F L 96.9 F Pulse Rate 77 86 Respiratory Rate 16 18 Blood Pressure 168/73 H 117/72 Pulse Oximetry 96 Oxygen Delivery Method Room Air BMI result Body Mass Index 28.0 Labs 04/28/22 17:59 04/28/22 17:59 Labs: Laboratory Results - last 48 hr 04/28/22 04/28/22 17:59 17:59 WBC 6.6 RBC 3.64 L Hgb 12.3 Hct 35.9 L MCV 98.6 H MCH 33.8 H MCHC 34.3 RDW 13.7 Plt Count 255 MPV 8.5 L Immature Gran % (Auto) 0.2 Neut % (Auto) 55.4 Lymph % (Auto) 35.6 [place] % (Auto) 6.8 Eos % (Auto) 1.7 Baso % (Auto) 0.3 Lymph # (Auto) 2.4 [place] # (Auto) 0.5 Eos # (Auto) 0.1 Baso # (Auto) 0.0 Abs Immat Gran (auto) 0.01 Absolute Neuts (auto) 3.7 Absolute Nucleated RBC 0.000 Nucleated RBC % (auto) 0.0 Sodium 132 L Potassium 4.3 Chloride 98 Carbon Dioxide 24 Anion Gap 14 BUN 10 Creatinine 0.61 Estim Creat Clear Calc 84.5 Estimated GFR > 60 Fasting Glucose 105 H Calcium 8.9 Magnesium 2.1 Total Bilirubin 0.2 AST 15 ALT 12 Alkaline Phosphatase 104 Total Protein 5.9 L Albumin 3.9 Vitamin B12 470 Folate 10.4 Medications Medications Current Medications Acetaminophen (Acetaminophen 325 Mg Tablet) 650 mg PO Q6H PRN PRN Reason: Headache/Pain Mild Scale (1-3) Last Admin: 04/30/22 12:48 Dose: 650 mg Al Hydroxide/Mg Hydroxide (Magnesium Hydrox/Alum Hydrox 30 Ml Oral.Susp) 30 ml PO Q6H PRN PRN Reason: Heartburn/Nausea Amlodipine Besylate (Amlodipine Besylate 2.5 Mg Tablet) 2.5 mg PO DAILY [facility]; Protocol Last Admin: 04/30/22 09:27 Dose: 2.5 mg Apixaban (Apixaban 5 Mg Tablet) 5 mg PO BID [facility] Last Admin: 04/30/22 09:27 Dose: 5 mg Artificial Tears (Artificial Tears 15 Ml Drops) 1 drop EYE-BOTH Q4H PRN PRN Reason: dry eyes, irritation Last Admin: 04/30/22 09:38 Dose: 1 drop Atorvastatin Calcium (Atorvastatin Calcium 10 Mg Tablet) 10 mg PO BEDTIME [facility] Last Admin: 04/29/22 20:30 Dose: 10 mg Docusate Sodium (Docusate Sodium 100 Mg Capsule) 100 mg PO BID [facility] Last Admin: 04/30/22 09:27 Dose: 100 mg Famotidine (Famotidine 20 Mg Tablet) 20 mg PO BEDTIME [facility] Last Admin: 04/29/22 20:38 Dose: Not Given Hydroxyzine HCl (Hydroxyzine Hcl 25 Mg Tablet) 25 mg PO Q6H PRN PRN Reason: Anxiety Last Admin: 04/29/22 18:51 Dose: 25 mg Lidocaine HCl (Lidocaine 4 % Cream Kit) 1 appl TOPICAL DAILY PRN; Protocol PRN Reason: SI joint pain Lorazepam (Lorazepam 0.5 Mg Tablet) 0.5 mg PO Q8H PRN PRN Reason: Anxiety Last Admin: 04/30/22 09:34 Dose: 0.5 mg Magnesium Hydroxide (Milk Of Magnesia 30 Ml Oral.Susp) 30 ml PO DAILY PRN PRN Reason: Constipation Last Admin: 04/30/22 12:49 Dose: 30 ml Melatonin (Melatonin 3 Mg Tablet) 9 mg PO BEDTIME PRN PRN Reason: sleep Last Admin: 04/28/22 22:50 Dose: 9 mg Nystatin (Nystatin Powder 15 Gm Bottle) 1 appl TOPICAL BID PRN; Protocol PRN Reason: rash Last Admin: 04/30/22 09:38 Dose: 1 appl Omeprazole (Omeprazole 20 Mg Capsule.Dr) 20 mg PO DAILY [facility] Last Admin: 04/30/22 09:31 Dose: Not Given Oxycodone HCl (Oxycodone Hcl Immed Release 5 Mg Tablet) 5 mg PO TID PRN PRN Reason: pain, moderate Last Admin: 04/30/22 09:34 Dose: 5 mg Polyethylene Glycol (Polyethylene Glycol 3350 17 Gm Powd.Pack) 17 gm PO DAILY [facility] Last Admin: 04/30/22 09:38 Dose: 17 gm Senna (Sennosides 8.6 Mg Tablet) 8.6 mg PO BEDTIME [facility] Last Admin: 04/29/22 20:30 Dose: 8.6 mg Trazodone HCl (Trazodone Hcl 50 Mg Tablet) 50 mg PO BEDTIME MRX1 PRN PRN Reason: Insomnia Last Admin: 04/30/22 01:19 Dose: 50 mg Venlafaxine HCl (Venlafaxine Hcl Er 37.5 Mg Cap.Er.24h) 37.5 mg PO DAILY [facility] Last Admin: 04/30/22 09:27 Dose: 37.5 mg Allergies Allergies Allergy/AdvReac Type Severity Reaction Status Date / Time amoxicillin Allergy Unknown Verified 01/19/21 17:49 NSAIDS (Non-Steroidal Allergy Unknown Verified 01/19/21 17:49 Anti-Inflamma Penicillins Allergy Unknown Verified 01/19/21 17:49 Sulfa (Sulfonamide Allergy Unknown Verified 01/19/21 17:49 Antibiotics) tetracycline Allergy Unknown Verified 01/19/21 17:49 Tetracyclines Allergy Unknown Verified 01/19/21 17:49 Assessment & Plan Assessment & Plan (1) Major depressive disorder: Status: Acute Code(s): F32.9 - Major depressive disorder, single episode, unspecified (2) Panic disorder with agoraphobia: Status: Acute Code(s): F40.01 - Agoraphobia with panic disorder (3) Chronic right SI joint pain: Status: Acute Code(s): M53.3 - Sacrococcygeal disorders, not elsewhere classified; G89.29 - Other chronic pain (4) Herniated cervical disc: Status: Acute Code(s): M50.20 - Other cervical disc displacement, unspecified cervical region (5) GERD (gastroesophageal reflux disease): Status: Acute Code(s): K21.9 - Gastro-esophageal reflux disease without esophagitis Plan Patient's 67-year-old female with anxiety panic attacks and depression in context of multiple medical concerns: a PMH significant for hx of AFib on Eliquis HTN, HLD, GERD, depression, anxiety, panic disorder with agoraphobia, chronic hyponatremia, and IBS Plan on admission: collateral contact with out patient provider consider increase effexor vs altrnative antidepressant/anxiolytic ekg pending lidocaine patch changes to lidocain gel due to adhesive allergy discharge planning Per Hospitalist : Pain mgt with oxycodone 5 mg TID prn Acetaminophen, lidocaine patch for pain management Follow-up outpatient with PCP Paroxysmal AFib Continue Eliquis HTN Continue amlodipine HLD Continue atorvastatin Chronic constipation Continue laxatives GERD Continue pantoprazole Plan 1. Eye contact her regular psychiatrist and we discussed her case, we agreed on changing to Cymbalta. 2. Since the patient has mood lability, we discussed the possibility of a mood stabilizer. She has history of having low sodium so Trileptal is not an option, we will try to do a mentation with Abilify in a low dose as adjunctive S/mood stabilizer. 3. Gather more collateral information. 4. Lower Effexor up to 75 mg p.o. daily for 2 days and then discontinue. 5. Start Cymbalta tomorrow. 6. Start Abilify 1 mg p.o. daily tomorrow morning. Reason for contiued inpatient stay Substantial Risk for: inability to function, rapid decompensation and med/psych decompensation Time Spent With Patient Time: Total time managing care of this patient today _20___ minutes.
[2022-04-30] MEDS: hydrOXYzine HCL 25 MG TABLET PO ×2 (13:31→20:07)
[2022-04-30 18:00] VITALS: BP 140/75; PULSE 84; RESP 18; TEMP 36.2; O2SAT 97
[2022-04-30] MEDS: Sennosides 8.6 MG TABLET PO (22:04)
[2022-04-30] MEDS: Atorvastatin Calcium 10 MG TABLET PO (22:05)
[2022-05-01] MEDS: oxyCODONE HCl Immed Release 5 MG TABLET PO ×3 (01:57→22:01)
[2022-05-01] MEDS: hydrOXYzine HCL 25 MG TABLET PO ×2 (01:59→14:53)
[2022-05-01] MEDS: Artificial Tears 15 ML DROPS 1 DROP EYE-BOTH ×3 (02:05→21:37)
[2022-05-01] MEDS: Nystatin Powder 15 GM BOTTLE 1 APPL TOPICAL ×2 (02:05→21:38)
[2022-05-01] MEDS: Acetaminophen 325 MG TABLET 650 MG PO ×3 (03:50→20:00)
[2022-05-01 06:00] VITALS: BP 168/74; PULSE 74; RESP 18; TEMP 36.6; O2SAT 98
[2022-05-01] MEDS: ARIPiprazole 2 MG TABLET PO (09:07)
[2022-05-01] MEDS: Docusate Sodium 100 MG CAPSULE PO ×2 (09:07→21:37)
[2022-05-01] MEDS: Apixaban 5 MG TABLET PO ×2 (09:08→21:36)
[2022-05-01] MEDS: polyethylene glycoL 3350 17 GM POWD.PACK PO (09:11)
[2022-05-01] MEDS: amLODIPine Besylate 2.5 MG TABLET PO (10:49)
[2022-05-01] MEDS: LORazepam 0.5 MG TABLET PO ×2 (11:18→20:00)
--- NOTE | 2022-05-01 11:52 | P.PNPSI_ITS ---
Subjective Subjective Date of Service: 05/01/22 Reason For Visit: Depression Subjective Notes: Conditional Voluntary Interim History: The nursing staff reported the patient had been extremely anxious with the start of Abilify. The occupational therapist reported that she had been very somatically preoccupied. She score [place] 24/30 and her [place] test is 5.0. On interview, she was very anxious I explained her that today was her last dose of Effexor and we will cross taper to Cymbalta 30 mg p.o. b.i.d.. Mental Status Exam Mental Status Exam Patient Appearance: Well Grooomed and Appropriate Patient Orientation: Person and Situation Level of Consciousness: Awake and Appropriate Patient Behavior: Guarded, Restless and Anxious Mood Description: Depressed Affect Description: Hostile Patient Cognition Impaired: No Ability to Follow Directions: Good Speech Pattern: Clear Hallucinations: None Delusions: Not Present Thought Process: Distracted and Linear Thought Content: positive for [place], positive for [place] and positive for [place] of Content Judgement: Fair Diagnostics Vital Signs (24Hr): Vital Signs - 24 hr 04/30/22 18:00 05/01/22 06:00 Temperature 97.1 F 97.8 F Pulse Rate 84 74 Respiratory Rate 18 18 Blood Pressure 140/75 H 168/74 H Pulse Oximetry 97 98 Oxygen Delivery Method Room Air Room Air BMI result Body Mass Index 28.0 Labs 04/28/22 17:59 04/28/22 17:59 Medications Medications Current Medications Acetaminophen (Acetaminophen 325 Mg Tablet) 650 mg PO Q6H PRN PRN Reason: Headache/Pain Mild Scale (1-3) Last Admin: 05/01/22 09:07 Dose: 650 mg Al Hydroxide/Mg Hydroxide (Magnesium Hydrox/Alum Hydrox 30 Ml Oral.Susp) 30 ml PO Q6H PRN PRN Reason: Heartburn/Nausea Amlodipine Besylate (Amlodipine Besylate 2.5 Mg Tablet) 2.5 mg PO DAILY [facility]; Protocol Last Admin: 05/01/22 10:49 Dose: 2.5 mg Apixaban (Apixaban 5 Mg Tablet) 5 mg PO BID [facility] Last Admin: 05/01/22 09:08 Dose: 5 mg Aripiprazole (Aripiprazole 2 Mg Tablet) 2 mg PO DAILY [facility] Last Admin: 05/01/22 09:07 Dose: 2 mg Artificial Tears (Artificial Tears 15 Ml Drops) 1 drop EYE-BOTH Q4H PRN PRN Reason: dry eyes, irritation Last Admin: 05/01/22 02:05 Dose: 1 drop Atorvastatin Calcium (Atorvastatin Calcium 10 Mg Tablet) 10 mg PO BEDTIME [facility] Last Admin: 04/30/22 22:05 Dose: 10 mg Docusate Sodium (Docusate Sodium 100 Mg Capsule) 100 mg PO BID [facility] Last Admin: 05/01/22 09:07 Dose: 100 mg Duloxetine HCl (Duloxetine Hcl 30 Mg Capsule.) 30 mg PO BID [facility] Last Admin: 05/01/22 10:56 Dose: Not Given Famotidine (Famotidine 20 Mg Tablet) 20 mg PO BEDTIME [facility] Last Admin: 04/30/22 22:11 Dose: Not Given Hydroxyzine HCl (Hydroxyzine Hcl 25 Mg Tablet) 25 mg PO Q6H PRN PRN Reason: Anxiety Last Admin: 05/01/22 01:59 Dose: 25 mg Lidocaine HCl (Lidocaine 4 % Cream Kit) 1 appl TOPICAL DAILY PRN; Protocol PRN Reason: SI joint pain Lorazepam (Lorazepam 0.5 Mg Tablet) 0.5 mg PO Q8H PRN PRN Reason: Anxiety Last Admin: 05/01/22 11:18 Dose: 0.5 mg Magnesium Hydroxide (Milk Of Magnesia 30 Ml Oral.Susp) 30 ml PO DAILY PRN PRN Reason: Constipation Last Admin: 04/30/22 12:49 Dose: 30 ml Melatonin (Melatonin 3 Mg Tablet) 9 mg PO BEDTIME PRN PRN Reason: sleep Last Admin: 04/28/22 22:50 Dose: 9 mg Nystatin (Nystatin Powder 15 Gm Bottle) 1 appl TOPICAL BID PRN; Protocol PRN Reason: rash Last Admin: 05/01/22 02:05 Dose: 1 appl Omeprazole (Omeprazole 20 Mg Capsule.) 20 mg PO DAILY [facility] Last Admin: 05/01/22 09:10 Dose: Not Given Oxycodone HCl (Oxycodone Hcl Immed Release 5 Mg Tablet) 5 mg PO TID PRN PRN Reason: pain, moderate Last Admin: 05/01/22 10:49 Dose: 5 mg Polyethylene Glycol (Polyethylene Glycol 3350 17 Gm Powd.Pack) 17 gm PO DAILY [facility] Last Admin: 05/01/22 09:11 Dose: 17 gm Senna (Sennosides 8.6 Mg Tablet) 8.6 mg PO BEDTIME [facility] Last Admin: 04/30/22 22:04 Dose: 8.6 mg Trazodone HCl (Trazodone Hcl 50 Mg Tablet) 50 mg PO BEDTIME MRX1 PRN PRN Reason: Insomnia Last Admin: 04/30/22 01:19 Dose: 50 mg Allergies Allergies Allergy/AdvReac Type Severity Reaction Status Date / Time amoxicillin Allergy Unknown Verified 01/19/21 17:49 NSAIDS (Non-Steroidal Allergy Unknown Verified 01/19/21 17:49 Anti-Inflamma Penicillins Allergy Unknown Verified 01/19/21 17:49 Sulfa (Sulfonamide Allergy Unknown Verified 01/19/21 17:49 Antibiotics) tetracycline Allergy Unknown Verified 01/19/21 17:49 Tetracyclines Allergy Unknown Verified 01/19/21 17:49 Assessment & Plan Assessment & Plan (1) Major depressive disorder: Status: Acute Code(s): F32.9 - Major depressive disorder, single episode, unspecified (2) Panic disorder with agoraphobia: Status: Acute Code(s): F40.01 - Agoraphobia with panic disorder (3) Chronic right SI joint pain: Status: Acute Code(s): M53.3 - Sacrococcygeal disorders, not elsewhere classified; G89.29 - Other chronic pain (4) Herniated cervical disc: Status: Acute Code(s): M50.20 - Other cervical disc displacement, unspecified cervical region (5) GERD (gastroesophageal reflux disease): Status: Acute Code(s): K21.9 - Gastro-esophageal reflux disease without esophagitis Plan Patient's 67-year-old female with anxiety panic attacks and depression in context of multiple medical concerns: a PMH significant for hx of AFib on Eliquis HTN, HLD, GERD, depression, anxiety, panic disorder with agoraphobia, chronic hyponatremia, and IBS Plan on admission: collateral contact with out patient provider consider increase effexor vs altrnative antidepressant/anxiolytic ekg pending lidocaine patch changes to lidocain gel due to adhesive allergy discharge planning Per Hospitalist : Pain mgt with oxycodone 5 mg TID prn Acetaminophen, lidocaine patch for pain management Follow-up outpatient with PCP Paroxysmal AFib Continue Eliquis HTN Continue amlodipine HLD Continue atorvastatin Chronic constipation Continue laxatives GERD Continue pantoprazole Plan 1. Eye contact her regular psychiatrist and we discussed her case, we agreed on changing to Cymbalta. 2. Since the patient has mood lability, we discussed the possibility of a mood stabilizer. She has history of having low sodium so Trileptal is not an option, we will try to do a mentation with Abilify in a low dose as adjunctive S/mood stabilizer. 3. Gather more collateral information. 4. Discontinue Effexor of May 01. 5. Start Cymbalta 30 mg p.o. b.i.d. 0 May 01. 6. Start Abilify 1 mg p.o. daily tomorrow morning. Reason for contiued inpatient stay Substantial Risk for: inability to function, rapid decompensation and med/psych decompensation Time Spent With Patient Time: Total time managing care of this patient today __20__ minutes.
[2022-05-01 18:00] VITALS: BP 160/73; PULSE 67; RESP 17; TEMP 36.6; O2SAT 98
[2022-05-01] MEDS: DULoxetine HCl 30 MG CAPSULE.DR PO (21:36)
[2022-05-01] MEDS: Atorvastatin Calcium 10 MG TABLET PO (21:37)
[2022-05-01] MEDS: Sennosides 8.6 MG TABLET PO (21:37)
[2022-05-01] MEDS: traZODone HCL 50 MG TABLET PO (23:50)
[2022-05-02] MEDS: traZODone HCL 50 MG TABLET PO (01:11)
[2022-05-02 07:30] VITALS: BP 151/74; PULSE 78; RESP 17; TEMP 36.4; O2SAT 97
[2022-05-02] MEDS: oxyCODONE HCl Immed Release 5 MG TABLET PO ×2 (07:59→16:37)
[2022-05-02] MEDS: ARIPiprazole 2 MG TABLET PO (07:59)
[2022-05-02] MEDS: Apixaban 5 MG TABLET PO ×2 (08:00→20:48)
[2022-05-02] MEDS: Docusate Sodium 100 MG CAPSULE PO ×2 (08:00→20:48)
[2022-05-02] MEDS: amLODIPine Besylate 2.5 MG TABLET PO (08:00)
[2022-05-02] MEDS: Omeprazole 20 MG CAPSULE.DR PO (08:00)
[2022-05-02] MEDS: DULoxetine HCl 30 MG CAPSULE.DR PO ×2 (08:00→20:48)
[2022-05-02] MEDS: polyethylene glycoL 3350 17 GM POWD.PACK PO (08:01)
[2022-05-02] MEDS: LORazepam 0.5 MG TABLET PO ×3 (08:28→18:11)
[2022-05-02] MEDS: Nystatin Powder 15 GM BOTTLE 1 APPL TOPICAL ×2 (08:28→20:57)
[2022-05-02] MEDS: Artificial Tears 15 ML DROPS 1 DROP EYE-BOTH ×2 (08:28→20:57)
[2022-05-02] MEDS: Acetaminophen 325 MG TABLET 650 MG PO ×2 (11:01→20:05)
[2022-05-02] MEDS: Milk of Magnesia 30 ML ORAL.SUSP PO (12:45)
--- NOTE | 2022-05-02 13:13 | HO.PSYCHPN ---
Subjective Subjective Date of Service: 05/02/22 Reason For Visit: Depression Subjective Notes: Conditional Voluntary Interim History: The nursing staff reported the patient has been anxious pleasant cooperative but demanding at times. He she has as per Lisa Spring. She has been extremely anxious starting new medications I explained her that this does the possibility of tardive dyskinesias nearly 0. The occupational therapy reported that the groups she always perseverates on her own complaints. The social services technician reported that probably we can discharge her next Saturday. Mental Status Exam Mental Status Exam Patient Appearance: Well Grooomed and Appropriate Patient Orientation: Person and Situation Level of Consciousness: Awake and Appropriate Patient Behavior: Guarded and Passive Mood Description: Withdrawn Affect Description: Constricted Patient Cognition Impaired: Yes Ability to Follow Directions: Good Speech Pattern: Clear Hallucinations: None Delusions: Not Present Thought Process: Distracted and Goal Oriented Thought Content: positive for Obsessional Thoughts, positive for [place] and positive for [place] Judgement: Fair Diagnostics Vital Signs (24Hr): Vital Signs - 24 hr 05/01/22 18:00 05/02/22 07:30 Temperature 97.9 F 97.6 F Pulse Rate 67 78 Respiratory Rate 17 17 Blood Pressure 160/73 H 151/74 H Pulse Oximetry 98 97 Oxygen Delivery Method Room Air Room Air BMI result Body Mass Index 28.0 Labs 04/28/22 17:59 04/28/22 17:59 Medications Medications Current Medications Acetaminophen (Acetaminophen 325 Mg Tablet) 650 mg PO Q6H PRN PRN Reason: Headache/Pain Mild Scale (1-3) Last Admin: 05/02/22 11:01 Dose: 650 mg Al Hydroxide/Mg Hydroxide (Magnesium Hydrox/Alum Hydrox 30 Ml Oral.Susp) 30 ml PO Q6H PRN PRN Reason: Heartburn/Nausea Amlodipine Besylate (Amlodipine Besylate 2.5 Mg Tablet) 2.5 mg PO DAILY [facility]; Protocol Last Admin: 05/02/22 08:00 Dose: 2.5 mg Apixaban (Apixaban 5 Mg Tablet) 5 mg PO BID [facility] Last Admin: 05/02/22 08:00 Dose: 5 mg Aripiprazole (Aripiprazole 2 Mg Tablet) 2 mg PO DAILY [facility] Last Admin: 05/02/22 07:59 Dose: 2 mg Artificial Tears (Artificial Tears 15 Ml Drops) 1 drop EYE-BOTH Q4H PRN PRN Reason: dry eyes, irritation Last Admin: 05/02/22 08:28 Dose: 1 drop Atorvastatin Calcium (Atorvastatin Calcium 10 Mg Tablet) 10 mg PO BEDTIME [facility] Last Admin: 05/01/22 21:37 Dose: 10 mg Docusate Sodium (Docusate Sodium 100 Mg Capsule) 100 mg PO BID [facility] Last Admin: 05/02/22 08:00 Dose: 100 mg Duloxetine HCl (Duloxetine Hcl 30 Mg Capsule.Dr) 30 mg PO BID [facility] Last Admin: 05/02/22 08:00 Dose: 30 mg Famotidine (Famotidine 20 Mg Tablet) 20 mg PO BEDTIME [facility] Last Admin: 05/01/22 21:40 Dose: Not Given Hydroxyzine HCl (Hydroxyzine Hcl 25 Mg Tablet) 25 mg PO Q6H PRN PRN Reason: Anxiety Last Admin: 05/01/22 14:53 Dose: 25 mg Lidocaine HCl (Lidocaine 4 % Cream Kit) 1 appl TOPICAL DAILY PRN; Protocol PRN Reason: SI joint pain Lorazepam (Lorazepam 0.5 Mg Tablet) 0.5 mg PO Q8H PRN PRN Reason: Anxiety Last Admin: 05/02/22 08:28 Dose: 0.5 mg Lorazepam (Lorazepam 0.5 Mg Tablet) 0.5 mg PO Q8H [facility] Last Admin: 05/02/22 11:01 Dose: 0.5 mg Magnesium Hydroxide (Milk Of Magnesia 30 Ml Oral.Susp) 30 ml PO DAILY PRN PRN Reason: Constipation Last Admin: 05/02/22 12:45 Dose: 30 ml Melatonin (Melatonin 3 Mg Tablet) 9 mg PO BEDTIME PRN PRN Reason: sleep Last Admin: 04/28/22 22:50 Dose: 9 mg Nystatin (Nystatin Powder 15 Gm Bottle) 1 appl TOPICAL BID PRN; Protocol PRN Reason: rash Last Admin: 05/02/22 08:28 Dose: 1 appl Omeprazole (Omeprazole 20 Mg Capsule.Dr) 20 mg PO DAILY [facility] Last Admin: 05/02/22 08:00 Dose: 20 mg Oxycodone HCl (Oxycodone Hcl Immed Release 5 Mg Tablet) 5 mg PO TID PRN PRN Reason: pain, moderate Last Admin: 05/02/22 07:59 Dose: 5 mg Polyethylene Glycol (Polyethylene Glycol 3350 17 Gm Powd.Pack) 17 gm PO DAILY [facility] Last Admin: 05/02/22 08:01 Dose: 17 gm Senna (Sennosides 8.6 Mg Tablet) 8.6 mg PO BEDTIME [facility] Last Admin: 05/01/22 21:37 Dose: 8.6 mg Trazodone HCl (Trazodone Hcl 50 Mg Tablet) 50 mg PO BEDTIME MRX1 PRN PRN Reason: Insomnia Last Admin: 05/02/22 01:11 Dose: 50 mg Allergies Allergies Allergy/AdvReac Type Severity Reaction Status Date / Time amoxicillin Allergy Unknown Verified 01/19/21 17:49 NSAIDS (Non-Steroidal Allergy Unknown Verified 01/19/21 17:49 Anti-Inflamma Penicillins Allergy Unknown Verified 01/19/21 17:49 Sulfa (Sulfonamide Allergy Unknown Verified 01/19/21 17:49 Antibiotics) tetracycline Allergy Unknown Verified 01/19/21 17:49 Tetracyclines Allergy Unknown Verified 01/19/21 17:49 Assessment & Plan Assessment & Plan (1) Major depressive disorder: Status: Acute Code(s): F32.9 - Major depressive disorder, single episode, unspecified (2) Panic disorder with agoraphobia: Status: Acute Code(s): F40.01 - Agoraphobia with panic disorder (3) Chronic right SI joint pain: Status: Acute Code(s): M53.3 - Sacrococcygeal disorders, not elsewhere classified; G89.29 - Other chronic pain (4) Herniated cervical disc: Status: Acute Code(s): M50.20 - Other cervical disc displacement, unspecified cervical region (5) GERD (gastroesophageal reflux disease): Status: Acute Code(s): K21.9 - Gastro-esophageal reflux disease without esophagitis Plan Patient's 67-year-old female with anxiety panic attacks and depression in context of multiple medical concerns: a PMH significant for hx of AFib on Eliquis HTN, HLD, GERD, depression, anxiety, panic disorder with agoraphobia, chronic hyponatremia, and IBS Plan on admission: collateral contact with out patient provider consider increase effexor vs altrnative antidepressant/anxiolytic ekg pending lidocaine patch changes to lidocain gel due to adhesive allergy discharge planning Per Hospitalist : Pain mgt with oxycodone 5 mg TID prn Acetaminophen, lidocaine patch for pain management Follow-up outpatient with PCP Paroxysmal AFib Continue Eliquis HTN Continue amlodipine HLD Continue atorvastatin Chronic constipation Continue laxatives GERD Continue pantoprazole Plan 1. Eye contact her regular psychiatrist and we discussed her case, we agreed on changing to Cymbalta. 2. Since the patient has mood lability, we discussed the possibility of a mood stabilizer. She has history of having low sodium so Trileptal is not an option, we will try to do a mentation with Abilify in a low dose as adjunctive S/mood stabilizer. 3. Gather more collateral information. 4. Discontinue Effexor of May 01. 5. Start Cymbalta 30 mg p.o. b.i.d. 0 May 01. 6. Start Abilify 2 mg p.o. on May 02. Reason for contiued inpatient stay Substantial Risk for: inability to function, rapid decompensation and med/psych decompensation Time Spent With Patient Time: Total time managing care of this patient today __20__ minutes.
[2022-05-02] MEDS: hydrOXYzine HCL 25 MG TABLET PO (13:52)
[2022-05-02 18:00] VITALS: BP 135/64; PULSE 75; RESP 18; TEMP 36.3; O2SAT 95
[2022-05-02] MEDS: Sennosides 8.6 MG TABLET PO (20:48)
[2022-05-02] MEDS: Atorvastatin Calcium 10 MG TABLET PO (20:49)
[2022-05-02] MEDS: Famotidine 20 MG TABLET PO (20:49)
[2022-05-02] MEDS: Melatonin 3 MG TABLET 9 MG PO (21:53)
[2022-05-03] MEDS: oxyCODONE HCl Immed Release 5 MG TABLET PO ×3 (00:24→17:06)
[2022-05-03] MEDS: LORazepam 0.5 MG TABLET PO ×4 (01:40→20:54)
[2022-05-03 06:00] VITALS: BP 157/65; PULSE 69; RESP 18; TEMP 36.6; O2SAT 98
[2022-05-03] MEDS: Acetaminophen 325 MG TABLET 650 MG PO ×3 (06:11→20:52)
[2022-05-03] MEDS: polyethylene glycoL 3350 17 GM POWD.PACK PO (08:31)
[2022-05-03] MEDS: Apixaban 5 MG TABLET PO ×2 (08:33→20:54)
[2022-05-03] MEDS: ARIPiprazole 2 MG TABLET PO (08:33)
[2022-05-03] MEDS: Artificial Tears 15 ML DROPS 1 DROP EYE-BOTH ×2 (08:33→21:04)
[2022-05-03] MEDS: Omeprazole 20 MG CAPSULE.DR PO (08:33)
[2022-05-03] MEDS: Docusate Sodium 100 MG CAPSULE PO ×2 (08:34→20:54)
[2022-05-03] MEDS: DULoxetine HCl 30 MG CAPSULE.DR PO ×2 (08:35→20:53)
[2022-05-03] MEDS: amLODIPine Besylate 2.5 MG TABLET PO (10:48)
[2022-05-03] MEDS: hydrOXYzine HCL 25 MG TABLET PO (12:57)
--- NOTE | 2022-05-03 13:38 | HO.PSYCHPN ---
Subjective Subjective Date of Service: 05/03/22 Reason For Visit: Depression Subjective Notes: Conditional Voluntary Interim History: The nursing staff reported the patient had been fully compliant with medications but she has taking all her PRNs, anxious with the change of medications. She stated to the staff that she is trying not to be needed but she is constantly attention seeking. The occupational therapist reported that her affect is slightly brighter comparing to admission. The child welfare social worker reported that we are working on aftercare a will contact her adult psychiatrist for follow-up. On interview the patient denies new symptoms still dysphoric but less anxious. Her only compliaint is constipation and she requested Senna liquid. Mental Status Exam Mental Status Exam Patient Appearance: Appropriate Patient Orientation: Person and Situation Level of Consciousness: Awake and Appropriate Patient Behavior: Cooperative Mood Description: Constricted Affect Description: Calm Patient Cognition Impaired: No Ability to Follow Directions: Good Speech Pattern: Clear Hallucinations: None Delusions: Not Present Thought Process: Distracted and Linear Thought Content: positive for Circumstantial Judgement: Fair Diagnostics Vital Signs (24Hr): Vital Signs - 24 hr 05/02/22 18:00 05/03/22 06:00 Temperature 97.3 F 97.9 F Pulse Rate 75 69 Respiratory Rate 18 18 Blood Pressure 135/64 157/65 H Pulse Oximetry 95 98 Oxygen Delivery Method Room Air Room Air BMI result Body Mass Index 28.0 Labs 04/28/22 17:59 04/28/22 17:59 Medications Medications Current Medications Acetaminophen (Acetaminophen 325 Mg Tablet) 650 mg PO Q6H PRN PRN Reason: Headache/Pain Mild Scale (1-3) Last Admin: 05/03/22 11:59 Dose: 650 mg Al Hydroxide/Mg Hydroxide (Magnesium Hydrox/Alum Hydrox 30 Ml Oral.Susp) 30 ml PO Q6H PRN PRN Reason: Heartburn/Nausea Amlodipine Besylate (Amlodipine Besylate 2.5 Mg Tablet) 2.5 mg PO DAILY [facility]; Protocol Last Admin: 05/03/22 10:48 Dose: 2.5 mg Apixaban (Apixaban 5 Mg Tablet) 5 mg PO BID [facility] Last Admin: 05/03/22 08:33 Dose: 5 mg Aripiprazole (Aripiprazole 2 Mg Tablet) 2 mg PO DAILY [facility] Last Admin: 05/03/22 08:33 Dose: 2 mg Artificial Tears (Artificial Tears 15 Ml Drops) 1 drop EYE-BOTH Q4H PRN PRN Reason: dry eyes, irritation Last Admin: 05/03/22 08:33 Dose: 1 drop Atorvastatin Calcium (Atorvastatin Calcium 10 Mg Tablet) 10 mg PO BEDTIME [facility] Last Admin: 05/02/22 20:49 Dose: 10 mg Docusate Sodium (Docusate Sodium 100 Mg Capsule) 100 mg PO BID [facility] Last Admin: 05/03/22 08:34 Dose: 100 mg Duloxetine HCl (Duloxetine Hcl 30 Mg Capsule.Dr) 30 mg PO BID [facility] Last Admin: 05/03/22 08:35 Dose: 30 mg Famotidine (Famotidine 20 Mg Tablet) 20 mg PO BEDTIME [facility] Last Admin: 05/02/22 20:49 Dose: 20 mg Hydroxyzine HCl (Hydroxyzine Hcl 25 Mg Tablet) 25 mg PO Q6H PRN PRN Reason: Anxiety Last Admin: 05/03/22 12:57 Dose: 25 mg Lidocaine HCl (Lidocaine 4 % Cream Kit) 1 appl TOPICAL DAILY PRN; Protocol PRN Reason: SI joint pain Lorazepam (Lorazepam 0.5 Mg Tablet) 0.5 mg PO Q8H PRN PRN Reason: Anxiety Last Admin: 05/02/22 08:28 Dose: 0.5 mg Lorazepam (Lorazepam 0.5 Mg Tablet) 0.5 mg PO TID [facility] Magnesium Hydroxide (Milk Of Magnesia 30 Ml Oral.Susp) 30 ml PO DAILY PRN PRN Reason: Constipation Last Admin: 05/02/22 12:45 Dose: 30 ml Melatonin (Melatonin 3 Mg Tablet) 9 mg PO BEDTIME PRN PRN Reason: sleep Last Admin: 05/02/22 21:53 Dose: 9 mg Nystatin (Nystatin Powder 15 Gm Bottle) 1 appl TOPICAL BID PRN; Protocol PRN Reason: rash Last Admin: 05/02/22 20:57 Dose: 1 appl Omeprazole (Omeprazole 20 Mg Capsule.Dr) 20 mg PO DAILY [facility] Last Admin: 05/03/22 08:33 Dose: 20 mg Oxycodone HCl (Oxycodone Hcl Immed Release 5 Mg Tablet) 5 mg PO TID PRN PRN Reason: pain, moderate Last Admin: 05/03/22 08:34 Dose: 5 mg Polyethylene Glycol (Polyethylene Glycol 3350 17 Gm Powd.Pack) 17 gm PO DAILY [facility] Last Admin: 05/03/22 08:31 Dose: 17 gm Senna (Sennosides 8.6 Mg Tablet) 8.6 mg PO BEDTIME [facility] Last Admin: 05/02/22 20:48 Dose: 8.6 mg Trazodone HCl (Trazodone Hcl 50 Mg Tablet) 50 mg PO BEDTIME MRX1 PRN PRN Reason: Insomnia Last Admin: 05/02/22 01:11 Dose: 50 mg Allergies Allergies Allergy/AdvReac Type Severity Reaction Status Date / Time amoxicillin Allergy Unknown Verified 01/19/21 17:49 NSAIDS (Non-Steroidal Allergy Unknown Verified 01/19/21 17:49 Anti-Inflamma Penicillins Allergy Unknown Verified 01/19/21 17:49 Sulfa (Sulfonamide Allergy Unknown Verified 01/19/21 17:49 Antibiotics) tetracycline Allergy Unknown Verified 01/19/21 17:49 Tetracyclines Allergy Unknown Verified 01/19/21 17:49 Assessment & Plan Assessment & Plan (1) Major depressive disorder: Status: Acute Code(s): F32.9 - Major depressive disorder, single episode, unspecified (2) Panic disorder with agoraphobia: Status: Acute Code(s): F40.01 - Agoraphobia with panic disorder (3) Chronic right SI joint pain: Status: Acute Code(s): M53.3 - Sacrococcygeal disorders, not elsewhere classified; G89.29 - Other chronic pain (4) Herniated cervical disc: Status: Acute Code(s): M50.20 - Other cervical disc displacement, unspecified cervical region (5) GERD (gastroesophageal reflux disease): Status: Acute Code(s): K21.9 - Gastro-esophageal reflux disease without esophagitis Plan Patient's 67-year-old female with anxiety panic attacks and depression in context of multiple medical concerns: a PMH significant for hx of AFib on Eliquis HTN, HLD, GERD, depression, anxiety, panic disorder with agoraphobia, chronic hyponatremia, and IBS Plan on admission: collateral contact with out patient provider consider increase effexor vs altrnative antidepressant/anxiolytic ekg pending lidocaine patch changes to lidocain gel due to adhesive allergy discharge planning Per Hospitalist : Pain mgt with oxycodone 5 mg TID prn Acetaminophen, lidocaine patch for pain management Follow-up outpatient with PCP Paroxysmal AFib Continue Eliquis HTN Continue amlodipine HLD Continue atorvastatin Chronic constipation Continue laxatives GERD Continue pantoprazole Plan 1. Eye contact her regular psychiatrist and we discussed her case, we agreed on changing to Cymbalta. 2. Since the patient has mood lability, we discussed the possibility of a mood stabilizer. She has history of having low sodium so Trileptal is not an option, we will try to do a mentation with Abilify in a low dose as adjunctive S/mood stabilizer. 3. Gather more collateral information. 4. Discontinue Effexor of May 01. 5. Start Cymbalta 30 mg p.o. b.i.d. 0 May 01. 6. Start Abilify 2 mg p.o. on May 02. 7. PT evaluation for chronic back pain, no need of further intervention. 8. Start Senna liquid at hs on May 03. Reason for contiued inpatient stay Substantial Risk for: inability to function, rapid decompensation and med/psych decompensation Time Spent With Patient Time: Total time managing care of this patient today __20__ minutes.
[2022-05-03] MEDS: Milk of Magnesia 30 ML ORAL.SUSP PO (16:11)
[2022-05-03 19:20] VITALS: BP 147/51; PULSE 72; RESP 18; TEMP 36.7; O2SAT 96
[2022-05-03] MEDS: Atorvastatin Calcium 10 MG TABLET PO (20:53)
[2022-05-03] MEDS: Nystatin Powder 15 GM BOTTLE 1 APPL TOPICAL (21:04)
[2022-05-03] MEDS: Melatonin 3 MG TABLET 9 MG PO (23:09)
[2022-05-04] MEDS: oxyCODONE HCl Immed Release 5 MG TABLET PO ×4 (00:56→20:01)
[2022-05-04] MEDS: LORazepam 0.5 MG TABLET PO ×4 (01:05→20:00)
[2022-05-04] MEDS: hydrOXYzine HCL 25 MG TABLET PO ×2 (02:58→11:51)
[2022-05-04 06:00] VITALS: BP 155/70; PULSE 85; RESP 16; TEMP 36.6; O2SAT 97
[2022-05-04] MEDS: Acetaminophen 325 MG TABLET 650 MG PO ×2 (06:28→13:50)
[2022-05-04] MEDS: ARIPiprazole 2 MG TABLET PO (09:39)
[2022-05-04] MEDS: DULoxetine HCl 30 MG CAPSULE.DR PO ×2 (09:39→20:00)
[2022-05-04] MEDS: Apixaban 5 MG TABLET PO ×2 (09:39→19:59)
[2022-05-04] MEDS: amLODIPine Besylate 2.5 MG TABLET PO (09:39)
[2022-05-04] MEDS: polyethylene glycoL 3350 17 GM POWD.PACK PO (10:14)
[2022-05-04] MEDS: Docusate Sodium 100 MG CAPSULE PO ×2 (10:14→20:00)
[2022-05-04] MEDS: Nystatin Powder 15 GM BOTTLE 1 APPL TOPICAL ×2 (10:24→21:59)
--- NOTE | 2022-05-04 12:46 | HO.PSYCHPN ---
Subjective Subjective Date of Service: 05/05/22 Reason For Visit: Depression Subjective Notes: Conditional Voluntary Interim History: Pt with sore throat, covid positive. Pt denies SOB, O2sat >98 on RA. She reports muscle aches and chills. No fever. Otherwise, pt stable at this time. No SI/HI. No signs of psychosis. Pt reports she was supposed to start medication for anxiety- do see on Dr. Barrera's note discussing clonidine, will start 0.1mg po BID. Medication Compliance: Yes Review of Systems Review of Systems Chronic lower back pain Upper middle back and shoulder pain x2 months Lower right ribcage pain x1 month Denies chest pain/pressure, palpitations No shortness of breath Denies abdominal pain Yes all other systems are reviewed and are negative Gastrointestinal: Reports constipation Musculoskeletal: Reports back pain, Reports arthralgias and Reports tingling Skin/Breast: Reports pruritus Reports tingling Psychiatric: Reports anxiety, Reports depression, Reports difficulty concentrating and Reports anhedonia Mental Status Exam Mental Status Exam Narrative: Appearance:casually groomed, in NAD Behavior: cooperative, friendly Speech: clear, normal rate/rhythm/volume, spontaneous TP: linear TC: anxious about covid dx, but stable. Mood: tired Affect: congruent SI: none HI: none VH/AH: none Insight/judgment: fair x 2. Diagnostics Vital Signs (24Hr): Vital Signs - 24 hr 05/04/22 18:00 05/05/22 06:00 Temperature 97.8 F 97.3 F Pulse Rate 70 109 H Respiratory Rate 18 16 Blood Pressure 138/63 120/66 Pulse Oximetry 94 99 Oxygen Delivery Method Room Air Room Air BMI result Body Mass Index 28.0 Labs 04/28/22 17:59 04/28/22 17:59 Labs: Laboratory Results - last 48 hr 05/05/22 12:15 COVID-19 ([facility]) Positive A COVID-19 Clin Com See Note Medications Medications Current Medications Acetaminophen (Acetaminophen 325 Mg Tablet) 650 mg PO Q6H PRN PRN Reason: Headache/Pain Mild Scale (1-3) Last Admin: 05/05/22 10:58 Dose: 650 mg Al Hydroxide/Mg Hydroxide (Magnesium Hydrox/Alum Hydrox 30 Ml Oral.Susp) 30 ml PO Q6H PRN PRN Reason: Heartburn/Nausea Amlodipine Besylate (Amlodipine Besylate 2.5 Mg Tablet) 2.5 mg PO DAILY [facility]; Protocol Last Admin: 05/05/22 08:56 Dose: 2.5 mg Apixaban (Apixaban 5 Mg Tablet) 5 mg PO BID [facility] Last Admin: 05/05/22 08:56 Dose: 5 mg Aripiprazole (Aripiprazole 2 Mg Tablet) 2 mg PO DAILY [facility] Last Admin: 05/05/22 08:55 Dose: 2 mg Artificial Tears (Artificial Tears 15 Ml Drops) 1 drop EYE-BOTH Q4H PRN PRN Reason: dry eyes, irritation Last Admin: 05/05/22 10:58 Dose: 1 drop Atorvastatin Calcium (Atorvastatin Calcium 10 Mg Tablet) 10 mg PO BEDTIME [facility] Last Admin: 05/04/22 19:59 Dose: 10 mg Docusate Sodium (Docusate Sodium 100 Mg Capsule) 100 mg PO BID [facility] Last Admin: 05/05/22 08:56 Dose: 100 mg Duloxetine HCl (Duloxetine Hcl 30 Mg Capsule.Dr) 30 mg PO BID [facility] Last Admin: 05/05/22 08:56 Dose: 30 mg Famotidine (Famotidine 20 Mg Tablet) 20 mg PO BEDTIME [facility] Last Admin: 05/04/22 20:00 Dose: 20 mg Hydroxyzine HCl (Hydroxyzine Hcl 25 Mg Tablet) 25 mg PO Q6H PRN PRN Reason: Anxiety Last Admin: 05/05/22 12:14 Dose: 25 mg Lidocaine HCl (Lidocaine 4 % Cream Kit) 1 appl TOPICAL DAILY PRN; Protocol PRN Reason: SI joint pain Lorazepam (Lorazepam 0.5 Mg Tablet) 0.5 mg PO Q8H PRN PRN Reason: Anxiety Last Admin: 05/05/22 00:13 Dose: 0.5 mg Lorazepam (Lorazepam 0.5 Mg Tablet) 0.5 mg PO TID [facility] Last Admin: 05/05/22 08:56 Dose: 0.5 mg Magnesium Hydroxide (Milk Of Magnesia 30 Ml Oral.Susp) 30 ml PO DAILY PRN PRN Reason: Constipation Last Admin: 05/03/22 16:11 Dose: 30 ml Melatonin (Melatonin 3 Mg Tablet) 9 mg PO BEDTIME PRN PRN Reason: sleep Last Admin: 05/04/22 22:41 Dose: 9 mg Nystatin (Nystatin Powder 15 Gm Bottle) 1 appl TOPICAL BID PRN; Protocol PRN Reason: rash Last Admin: 05/05/22 10:58 Dose: 1 appl Omeprazole (Omeprazole 20 Mg Capsule.Dr) 20 mg PO DAILY [facility] Last Admin: 05/05/22 08:55 Dose: 20 mg Oxycodone HCl (Oxycodone Hcl Immed Release 5 Mg Tablet) 5 mg PO TID [facility] Last Admin: 05/05/22 08:56 Dose: 5 mg Polyethylene Glycol (Polyethylene Glycol 3350 17 Gm Powd.Pack) 17 gm PO DAILY [facility] Last Admin: 05/05/22 08:57 Dose: 17 gm Senna (Senna [place] Extract Oral Syrup 15 Ml Syrup) 7.5 ml PO BEDTIME [facility] Last Admin: 05/04/22 21:56 Dose: 7.5 ml Trazodone HCl (Trazodone Hcl 50 Mg Tablet) 50 mg PO BEDTIME MRX1 PRN PRN Reason: Insomnia Last Admin: 05/05/22 01:38 Dose: 50 mg Allergies Allergies Allergy/AdvReac Type Severity Reaction Status Date / Time amoxicillin Allergy Unknown Verified 01/19/21 17:49 NSAIDS (Non-Steroidal Allergy Unknown Verified 01/19/21 17:49 Anti-Inflamma Penicillins Allergy Unknown Verified 01/19/21 17:49 Sulfa (Sulfonamide Allergy Unknown Verified 01/19/21 17:49 Antibiotics) tetracycline Allergy Unknown Verified 01/19/21 17:49 Tetracyclines Allergy Unknown Verified 01/19/21 17:49 Assessment & Plan Assessment & Plan (1) Major depressive disorder: Status: Acute Code(s): F32.9 - Major depressive disorder, single episode, unspecified (2) Panic disorder with agoraphobia: Status: Acute Code(s): F40.01 - Agoraphobia with panic disorder (3) Chronic right SI joint pain: Status: Acute Code(s): M53.3 - Sacrococcygeal disorders, not elsewhere classified; G89.29 - Other chronic pain (4) Herniated cervical disc: Status: Acute Code(s): M50.20 - Other cervical disc displacement, unspecified cervical region (5) GERD (gastroesophageal reflux disease): Status: Acute Code(s): K21.9 - Gastro-esophageal reflux disease without esophagitis Plan Patient's 67-year-old female with anxiety panic attacks and depression in context of multiple medical concerns: a PMH significant for hx of AFib on Eliquis HTN, HLD, GERD, depression, anxiety, panic disorder with agoraphobia, chronic hyponatremia, and IBS Plan on admission: collateral contact with out patient provider consider increase effexor vs altrnative antidepressant/anxiolytic ekg pending lidocaine patch changes to lidocain gel due to adhesive allergy discharge planning Per Hospitalist : Pain mgt with oxycodone 5 mg TID prn Acetaminophen, lidocaine patch for pain management Follow-up outpatient with PCP Paroxysmal AFib Continue Eliquis HTN Continue amlodipine HLD Continue atorvastatin Chronic constipation Continue laxatives GERD Continue pantoprazole Plan 05/05- add mucinex, benadryl now that she is covid positive. No signs of respiratory distress. Reason for contiued inpatient stay Substantial Risk for: inability to function Time Spent With Patient Time: Total time managing care of this patient today ____ minutes.
--- NOTE | 2022-05-04 14:24 | P.PNPSI_ITS ---
Subjective Subjective Date of Service: 05/04/22 Reason For Visit: Depression Subjective Notes: Conditional Voluntary Interim History: The nursing staff reported the patient slept 3 hours had been pleasant cooperative. I will offer her clonidine since she is anxious and her pulse is a little high. On interview denies new symptoms besides chronic pain. We discussed options for anxiety and she agreed Clonidine0.1 tid Mental Status Exam Mental Status Exam Patient Appearance: Well Grooomed and Appropriate Patient Orientation: Person and Situation Level of Consciousness: Awake and Appropriate Patient Behavior: Appropriate Mood Description: Calm Affect Description: Constricted Ability to Follow Directions: Good Speech Pattern: Clear Hallucinations: None Delusions: Not Present Thought Process: Linear Thought Content: positive for [place] and positive for Circumstantial Judgement: Fair Diagnostics Vital Signs (24Hr): Vital Signs - 24 hr 05/03/22 19:20 05/04/22 06:00 Temperature 98.1 F 97.9 F Pulse Rate 72 85 Respiratory Rate 18 16 Blood Pressure 147/51 H 155/70 H Pulse Oximetry 96 97 Oxygen Delivery Method Room Air Room Air BMI result Body Mass Index 28.0 Labs 04/28/22 17:59 04/28/22 17:59 Medications Medications Current Medications Acetaminophen (Acetaminophen 325 Mg Tablet) 650 mg PO Q6H PRN PRN Reason: Headache/Pain Mild Scale (1-3) Last Admin: 05/04/22 13:50 Dose: 650 mg Al Hydroxide/Mg Hydroxide (Magnesium Hydrox/Alum Hydrox 30 Ml Oral.Susp) 30 ml PO Q6H PRN PRN Reason: Heartburn/Nausea Amlodipine Besylate (Amlodipine Besylate 2.5 Mg Tablet) 2.5 mg PO DAILY [facility]; Protocol Last Admin: 05/04/22 09:39 Dose: 2.5 mg Apixaban (Apixaban 5 Mg Tablet) 5 mg PO BID [facility] Last Admin: 05/04/22 09:39 Dose: 5 mg Aripiprazole (Aripiprazole 2 Mg Tablet) 2 mg PO DAILY [facility] Last Admin: 05/04/22 09:39 Dose: 2 mg Artificial Tears (Artificial Tears 15 Ml Drops) 1 drop EYE-BOTH Q4H PRN PRN Reason: dry eyes, irritation Last Admin: 05/03/22 21:04 Dose: 1 drop Atorvastatin Calcium (Atorvastatin Calcium 10 Mg Tablet) 10 mg PO BEDTIME [facility] Last Admin: 05/03/22 20:53 Dose: 10 mg Docusate Sodium (Docusate Sodium 100 Mg Capsule) 100 mg PO BID [facility] Last Admin: 05/04/22 10:14 Dose: 100 mg Duloxetine HCl (Duloxetine Hcl 30 Mg Capsule.) 30 mg PO BID [facility] Last Admin: 05/04/22 09:39 Dose: 30 mg Famotidine (Famotidine 20 Mg Tablet) 20 mg PO BEDTIME [facility] Last Admin: 05/03/22 20:42 Dose: Not Given Hydroxyzine HCl (Hydroxyzine Hcl 25 Mg Tablet) 25 mg PO Q6H PRN PRN Reason: Anxiety Last Admin: 05/04/22 11:51 Dose: 25 mg Lidocaine HCl (Lidocaine 4 % Cream Kit) 1 appl TOPICAL DAILY PRN; Protocol PRN Reason: SI joint pain Lorazepam (Lorazepam 0.5 Mg Tablet) 0.5 mg PO Q8H PRN PRN Reason: Anxiety Last Admin: 05/04/22 01:05 Dose: 0.5 mg Lorazepam (Lorazepam 0.5 Mg Tablet) 0.5 mg PO TID [facility] Last Admin: 05/04/22 13:52 Dose: 0.5 mg Magnesium Hydroxide (Milk Of Magnesia 30 Ml Oral.Susp) 30 ml PO DAILY PRN PRN Reason: Constipation Last Admin: 05/03/22 16:11 Dose: 30 ml Melatonin (Melatonin 3 Mg Tablet) 9 mg PO BEDTIME PRN PRN Reason: sleep Last Admin: 05/03/22 23:09 Dose: 9 mg Nystatin (Nystatin Powder 15 Gm Bottle) 1 appl TOPICAL BID PRN; Protocol PRN Reason: rash Last Admin: 05/04/22 10:24 Dose: 1 appl Omeprazole (Omeprazole 20 Mg Capsule.) 20 mg PO DAILY [facility] Last Admin: 05/04/22 09:43 Dose: Not Given Polyethylene Glycol (Polyethylene Glycol 3350 17 Gm Powd.Pack) 17 gm PO DAILY [facility] Last Admin: 05/04/22 10:14 Dose: 17 gm Senna (Senna [place] Extract Oral Syrup 15 Ml Syrup) 7.5 ml PO BEDTIME [facility] Last Admin: 05/03/22 22:45 Dose: 7.5 ml Trazodone HCl (Trazodone Hcl 50 Mg Tablet) 50 mg PO BEDTIME MRX1 PRN PRN Reason: Insomnia Last Admin: 05/02/22 01:11 Dose: 50 mg Allergies Allergies Allergy/AdvReac Type Severity Reaction Status Date / Time amoxicillin Allergy Unknown Verified 01/19/21 17:49 NSAIDS (Non-Steroidal Allergy Unknown Verified 01/19/21 17:49 Anti-Inflamma Penicillins Allergy Unknown Verified 01/19/21 17:49 Sulfa (Sulfonamide Allergy Unknown Verified 01/19/21 17:49 Antibiotics) tetracycline Allergy Unknown Verified 01/19/21 17:49 Tetracyclines Allergy Unknown Verified 01/19/21 17:49 Assessment & Plan Assessment & Plan (1) Major depressive disorder: Status: Acute Code(s): F32.9 - Major depressive disorder, single episode, unspecified (2) Panic disorder with agoraphobia: Status: Acute Code(s): F40.01 - Agoraphobia with panic disorder (3) Chronic right SI joint pain: Status: Acute Code(s): M53.3 - Sacrococcygeal disorders, not elsewhere classified; G89.29 - Other chronic pain (4) Herniated cervical disc: Status: Acute Code(s): M50.20 - Other cervical disc displacement, unspecified cervical region (5) GERD (gastroesophageal reflux disease): Status: Acute Code(s): K21.9 - Gastro-esophageal reflux disease without esophagitis Plan Patient's 67-year-old female with anxiety panic attacks and depression in context of multiple medical concerns: a PMH significant for hx of AFib on Eliquis HTN, HLD, GERD, depression, anxiety, panic disorder with agoraphobia, chronic hyponatremia, and IBS Plan on admission: collateral contact with out patient provider consider increase effexor vs altrnative antidepressant/anxiolytic ekg pending lidocaine patch changes to lidocain gel due to adhesive allergy discharge planning Per Hospitalist : Pain mgt with oxycodone 5 mg TID prn Acetaminophen, lidocaine patch for pain management Follow-up outpatient with PCP Paroxysmal AFib Continue Eliquis HTN Continue amlodipine HLD Continue atorvastatin Chronic constipation Continue laxatives GERD Continue pantoprazole Plan 1. Eye contact her regular psychiatrist and we discussed her case, we agreed on changing to Cymbalta. 2. Since the patient has mood lability, we discussed the possibility of a mood stabilizer. She has history of having low sodium so Trileptal is not an option, we will try to do a mentation with Sandovaly in a low dose as adjunctive S/mood stabilizer. 3. Gather more collateral information. 4. Discontinue Effexor of May 01. 5. Start Cymbalta 30 mg p.o. b.i.d. 0 May 01. 6. Start Abilify 2 mg p.o. on May 02. 7. PT evaluation for chronic back pain, no need of further intervention. 8. Start Senna liquid at hs on May 03. 9. Clonidine 0.1 tid on May 04 Reason for contiued inpatient stay Substantial Risk for: inability to function, rapid decompensation and med/psych decompensation Time Spent With Patient Time: Total time managing care of this patient today _20___ minutes.
[2022-05-04 18:00] VITALS: BP 138/63; PULSE 70; RESP 18; TEMP 36.6; O2SAT 94
[2022-05-04] MEDS: Atorvastatin Calcium 10 MG TABLET PO (19:59)
[2022-05-04] MEDS: Famotidine 20 MG TABLET PO (20:00)
[2022-05-04] MEDS: Artificial Tears 15 ML DROPS 1 DROP EYE-BOTH (21:59)
[2022-05-04] MEDS: Melatonin 3 MG TABLET 9 MG PO (22:41)
[2022-05-05] MEDS: LORazepam 0.5 MG TABLET PO ×4 (00:13→22:02)
[2022-05-05] MEDS: traZODone HCL 50 MG TABLET PO (01:38)
[2022-05-05] MEDS: Acetaminophen 325 MG TABLET 650 MG PO ×3 (04:40→19:55)
[2022-05-05] MEDS: hydrOXYzine HCL 25 MG TABLET PO ×3 (05:17→19:56)
[2022-05-05 06:00] VITALS: BP 120/66; PULSE 109; RESP 16; TEMP 36.3; O2SAT 99
[2022-05-05] MEDS: Omeprazole 20 MG CAPSULE.DR PO (08:55)
[2022-05-05] MEDS: ARIPiprazole 2 MG TABLET PO (08:55)
[2022-05-05] MEDS: Apixaban 5 MG TABLET PO ×2 (08:56→22:03)
[2022-05-05] MEDS: DULoxetine HCl 30 MG CAPSULE.DR PO ×2 (08:56→22:03)
[2022-05-05] MEDS: amLODIPine Besylate 2.5 MG TABLET PO (08:56)
[2022-05-05] MEDS: Docusate Sodium 100 MG CAPSULE PO ×2 (08:56→22:03)
[2022-05-05] MEDS: oxyCODONE HCl Immed Release 5 MG TABLET PO ×3 (08:56→22:04)
[2022-05-05] MEDS: polyethylene glycoL 3350 17 GM POWD.PACK PO (08:57)
[2022-05-05] MEDS: Nystatin Powder 15 GM BOTTLE 1 APPL TOPICAL (10:58)
[2022-05-05] MEDS: Artificial Tears 15 ML DROPS 1 DROP EYE-BOTH (10:58)
[2022-05-05 12:43] LABS: COVID-19 Test Positive (Negative); IDNOW Serial# 16C4AD1C
[2022-05-05 19:45] VITALS: BP 148/70; PULSE 90; RESP 18; TEMP 37.1; O2SAT 99
[2022-05-05] MEDS: Atorvastatin Calcium 10 MG TABLET PO (22:03)
[2022-05-05] MEDS: Famotidine 20 MG TABLET PO (22:10)
[2022-05-06] MEDS: Melatonin 3 MG TABLET 9 MG PO ×2 (00:19→23:36)
[2022-05-06] MEDS: traZODone HCL 50 MG TABLET PO (01:57)
[2022-05-06] MEDS: hydrOXYzine HCL 25 MG TABLET PO ×3 (04:18→23:35)
[2022-05-06] MEDS: Acetaminophen 325 MG TABLET 650 MG PO ×4 (04:18→23:43)
[2022-05-06 06:00] VITALS: BP 149/68; PULSE 78; RESP 20; TEMP 37; O2SAT 96
[2022-05-06] MEDS: Docusate Sodium 100 MG CAPSULE PO ×2 (08:58→20:42)
[2022-05-06] MEDS: Omeprazole 20 MG CAPSULE.DR PO (08:58)
[2022-05-06] MEDS: LORazepam 0.5 MG TABLET PO ×3 (08:58→20:42)
[2022-05-06] MEDS: amLODIPine Besylate 2.5 MG TABLET PO (08:58)
[2022-05-06] MEDS: DULoxetine HCl 30 MG CAPSULE.DR PO ×2 (08:58→20:41)
[2022-05-06] MEDS: oxyCODONE HCl Immed Release 5 MG TABLET PO ×3 (08:59→20:54)
[2022-05-06] MEDS: Apixaban 5 MG TABLET PO ×2 (09:00→20:42)
[2022-05-06] MEDS: ARIPiprazole 2 MG TABLET PO (09:00)
[2022-05-06] MEDS: polyethylene glycoL 3350 17 GM POWD.PACK PO (09:00)
[2022-05-06] MEDS: Milk of Magnesia 30 ML ORAL.SUSP PO (12:18)
--- NOTE | 2022-05-06 14:54 | P.PNPSI_ITS ---
Subjective Subjective Date of Service: 05/06/22 Reason For Visit: Depression Interim History: Pt in bed. She reports increased malaise, congestion, chills/muscleaches. Afebrile. Pt denies SOB, O2sat >98 on RA. No signs of respiratory distress. Otherwise, pt stable at this time. No SI/HI. No signs of psychosis. Medication Compliance: Yes Review of Systems Review of Systems Chronic lower back pain Upper middle back and shoulder pain x2 months Lower right ribcage pain x1 month Denies chest pain/pressure, palpitations No shortness of breath Denies abdominal pain Yes all other systems are reviewed and are negative Gastrointestinal: Reports constipation Musculoskeletal: Reports back pain, Reports arthralgias and Reports tingling Skin/Breast: Reports pruritus Reports tingling Psychiatric: Reports anxiety, Reports depression, Reports difficulty concentrating and Reports anhedonia Mental Status Exam Mental Status Exam Narrative: Appearance:casually groomed, in NAD Behavior: cooperative, friendly Speech: clear, normal rate/rhythm/volume, spontaneous TP: linear TC: anxious about covid dx, but stable. Mood: tired Affect: congruent SI: none HI: none VH/AH: none Insight/judgment: fair x 2. Diagnostics Vital Signs (24Hr): Vital Signs - 24 hr 05/05/22 19:45 05/06/22 06:00 Temperature 98.7 F 98.6 F Pulse Rate 90 78 Respiratory Rate 18 20 Blood Pressure 148/70 H 149/68 H Pulse Oximetry 99 96 Oxygen Delivery Method Room Air Room Air BMI result Body Mass Index 28.0 Labs 04/28/22 17:59 04/28/22 17:59 Labs: Laboratory Results - last 48 hr 05/05/22 12:15 COVID-19 ([facility]) Positive A COVID-19 Clin Com See Note Medications Medications Current Medications Acetaminophen (Acetaminophen 325 Mg Tablet) 650 mg PO Q6H PRN PRN Reason: Headache/Pain Mild Scale (1-3) Last Admin: 05/06/22 10:14 Dose: 650 mg Al Hydroxide/Mg Hydroxide (Magnesium Hydrox/Alum Hydrox 30 Ml Oral.Susp) 30 ml PO Q6H PRN PRN Reason: Heartburn/Nausea Amlodipine Besylate (Amlodipine Besylate 2.5 Mg Tablet) 2.5 mg PO DAILY [facility]; Protocol Last Admin: 05/06/22 08:58 Dose: 2.5 mg Apixaban (Apixaban 5 Mg Tablet) 5 mg PO BID [facility] Last Admin: 05/06/22 09:00 Dose: 5 mg Aripiprazole (Aripiprazole 2 Mg Tablet) 2 mg PO DAILY [facility] Last Admin: 05/06/22 09:00 Dose: 2 mg Artificial Tears (Artificial Tears 15 Ml Drops) 1 drop EYE-BOTH Q4H PRN PRN Reason: dry eyes, irritation Last Admin: 05/05/22 10:58 Dose: 1 drop Atorvastatin Calcium (Atorvastatin Calcium 10 Mg Tablet) 10 mg PO BEDTIME [facility] Last Admin: 05/05/22 22:03 Dose: 10 mg Clonidine HCl (Clonidine Hcl 0.1 Mg Tablet) 0.1 mg PO BID [facility]; Protocol Diphenhydramine HCl (Diphenhydramine Hcl 25 Mg Capsule) 25 mg PO Q6H PRN PRN Reason: Congestion Docusate Sodium (Docusate Sodium 100 Mg Capsule) 100 mg PO BID [facility] Last Admin: 05/06/22 08:58 Dose: 100 mg Duloxetine HCl (Duloxetine Hcl 30 Mg Capsule.Dr) 30 mg PO BID [facility] Last Admin: 05/06/22 08:58 Dose: 30 mg Famotidine (Famotidine 20 Mg Tablet) 20 mg PO BEDTIME [facility] Last Admin: 05/05/22 22:10 Dose: 20 mg Guaifenesin (Guaifenesin La 600 Mg Tab.Er.12h) 600 mg PO BID [facility] Hydroxyzine HCl (Hydroxyzine Hcl 25 Mg Tablet) 25 mg PO Q6H PRN PRN Reason: Anxiety Last Admin: 05/06/22 11:26 Dose: 25 mg Lidocaine HCl (Lidocaine 4 % Cream Kit) 1 appl TOPICAL DAILY PRN; Protocol PRN Reason: SI joint pain Lorazepam (Lorazepam 0.5 Mg Tablet) 0.5 mg PO Q8H PRN PRN Reason: Anxiety Last Admin: 05/05/22 00:13 Dose: 0.5 mg Lorazepam (Lorazepam 0.5 Mg Tablet) 0.5 mg PO TID [facility] Last Admin: 05/06/22 08:58 Dose: 0.5 mg Magnesium Hydroxide (Milk Of Magnesia 30 Ml Oral.Susp) 30 ml PO DAILY PRN PRN Reason: Constipation Last Admin: 05/06/22 12:18 Dose: 30 ml Melatonin (Melatonin 3 Mg Tablet) 9 mg PO BEDTIME PRN PRN Reason: sleep Last Admin: 05/06/22 00:19 Dose: 9 mg Nystatin (Nystatin Powder 15 Gm Bottle) 1 appl TOPICAL BID PRN; Protocol PRN Reason: rash Last Admin: 05/05/22 10:58 Dose: 1 appl Omeprazole (Omeprazole 20 Mg Capsule.Dr) 20 mg PO DAILY [facility] Last Admin: 05/06/22 08:58 Dose: 20 mg Oxycodone HCl (Oxycodone Hcl Immed Release 5 Mg Tablet) 5 mg PO TID [facility] Last Admin: 05/06/22 08:59 Dose: 5 mg Polyethylene Glycol (Polyethylene Glycol 3350 17 Gm Powd.Pack) 17 gm PO DAILY [facility] Last Admin: 05/06/22 09:00 Dose: 17 gm Senna (Senna [place] Extract Oral Syrup 15 Ml Syrup) 7.5 ml PO BEDTIME [facility] Last Admin: 05/05/22 22:59 Dose: 7.5 ml Trazodone HCl (Trazodone Hcl 50 Mg Tablet) 50 mg PO BEDTIME MRX1 PRN PRN Reason: Insomnia Last Admin: 05/06/22 01:57 Dose: 50 mg Allergies Allergies Allergy/AdvReac Type Severity Reaction Status Date / Time amoxicillin Allergy Unknown Verified 01/19/21 17:49 NSAIDS (Non-Steroidal Allergy Unknown Verified 01/19/21 17:49 Anti-Inflamma Penicillins Allergy Unknown Verified 01/19/21 17:49 Sulfa (Sulfonamide Allergy Unknown Verified 01/19/21 17:49 Antibiotics) tetracycline Allergy Unknown Verified 01/19/21 17:49 Tetracyclines Allergy Unknown Verified 01/19/21 17:49 Assessment & Plan Assessment & Plan (1) Major depressive disorder: Status: Acute Code(s): F32.9 - Major depressive disorder, single episode, unspecified (2) Panic disorder with agoraphobia: Status: Acute Code(s): F40.01 - Agoraphobia with panic disorder (3) Chronic right SI joint pain: Status: Acute Code(s): M53.3 - Sacrococcygeal disorders, not elsewhere classified; G89.29 - Other chronic pain (4) Herniated cervical disc: Status: Acute Code(s): M50.20 - Other cervical disc displacement, unspecified cervical region (5) GERD (gastroesophageal reflux disease): Status: Acute Code(s): K21.9 - Gastro-esophageal reflux disease without esophagitis Plan Patient's 67-year-old female with anxiety panic attacks and depression in context of multiple medical concerns: a PMH significant for hx of AFib on Eliquis HTN, HLD, GERD, depression, anxiety, panic disorder with agoraphobia, chronic hyponatremia, and IBS Plan on admission: collateral contact with out patient provider consider increase effexor vs altrnative antidepressant/anxiolytic ekg pending lidocaine patch changes to lidocain gel due to adhesive allergy discharge planning Per Hospitalist : Pain mgt with oxycodone 5 mg TID prn Acetaminophen, lidocaine patch for pain management Follow-up outpatient with PCP Paroxysmal AFib Continue Eliquis HTN Continue amlodipine HLD Continue atorvastatin Chronic constipation Continue laxatives GERD Continue pantoprazole Plan 05/05- add mucinex, benadryl now that she is covid positive. No signs of respi ratory distress. 05/06 continue tx. continue monitor respiratory status. Reason for contiued inpatient stay Substantial Risk for: inability to function Time Spent With Patient Time: Total time managing care of this patient today ____ minutes.
[2022-05-06] MEDS: diphenhydrAMINE HCL 25 MG CAPSULE PO (15:01)
[2022-05-06] MEDS: guaiFENesin LA 600 MG TAB.ER.12H PO ×2 (15:23→21:34)
[2022-05-06 17:32] VITALS: TEMP 37.3
[2022-05-06 18:00] VITALS: BP 140/68; PULSE 77; RESP 17; TEMP 37.4; O2SAT 96
[2022-05-06] MEDS: Atorvastatin Calcium 10 MG TABLET PO (20:41)
[2022-05-06] MEDS: Famotidine 20 MG TABLET PO (20:41)
[2022-05-06] MEDS: cloNIDine HCL 0.1 MG TABLET PO (20:42)
[2022-05-07] MEDS: traZODone HCL 50 MG TABLET PO (02:21)
[2022-05-07 08:40] VITALS: BP 112/58; PULSE 71; RESP 18; TEMP 36.9; O2SAT 96
[2022-05-07] MEDS: oxyCODONE HCl Immed Release 5 MG TABLET PO ×3 (08:42→20:49)
[2022-05-07] MEDS: DULoxetine HCl 30 MG CAPSULE.DR PO ×2 (08:42→20:47)
[2022-05-07] MEDS: Omeprazole 20 MG CAPSULE.DR PO (08:43)
[2022-05-07] MEDS: LORazepam 0.5 MG TABLET PO ×3 (08:43→20:47)
[2022-05-07] MEDS: Apixaban 5 MG TABLET PO ×2 (08:43→20:49)
[2022-05-07] MEDS: guaiFENesin LA 600 MG TAB.ER.12H PO ×2 (08:43→20:49)
[2022-05-07] MEDS: ARIPiprazole 2 MG TABLET PO (08:44)
[2022-05-07] MEDS: amLODIPine Besylate 2.5 MG TABLET PO (08:44)
[2022-05-07] MEDS: cloNIDine HCL 0.1 MG TABLET PO ×2 (08:44→20:47)
[2022-05-07] MEDS: polyethylene glycoL 3350 17 GM POWD.PACK PO (08:45)
[2022-05-07] MEDS: Docusate Sodium 100 MG CAPSULE PO ×2 (08:45→20:49)
[2022-05-07] MEDS: Artificial Tears 15 ML DROPS 1 DROP EYE-BOTH (08:55)
--- NOTE | 2022-05-07 09:59 | P.PNPSI_ITS ---
Subjective Subjective Date of Service: 05/07/22 Reason For Visit: Depression Subjective Notes: Conditional Voluntary Interim History: Pt in isolation due to covid. Pt reports less muscle aches, less congestion. She does report increased dry eyes with benadryl and mucinex. Pt denies SOB, O2 sat on RA >96. No SI/HI. No VH/AH. Medication Compliance: Yes Review of Systems Review of Systems Chronic lower back pain Upper middle back and shoulder pain x2 months Lower right ribcage pain x1 month Denies chest pain/pressure, palpitations No shortness of breath Denies abdominal pain Yes all other systems are reviewed and are negative Gastrointestinal: Reports constipation Musculoskeletal: Reports back pain, Reports arthralgias and Reports tingling Skin/Breast: Reports pruritus Reports tingling Psychiatric: Reports anxiety, Reports depression, Reports difficulty concentrating and Reports anhedonia Mental Status Exam Mental Status Exam Narrative: Appearance:casually groomed, in NAD Behavior: cooperative, friendly Speech: clear, normal rate/rhythm/volume, spontaneous TP: linear TC: anxious about covid dx, but stable. Mood: better Affect: congruent SI: none HI: none VH/AH: none Insight/judgment: fair x 2. Diagnostics Vital Signs (24Hr): Vital Signs - 24 hr 05/06/22 17:32 05/06/22 18:00 Temperature 99.2 F 99.3 F Pulse Rate 77 Respiratory Rate 17 Blood Pressure 140/68 H Pulse Oximetry 96 Oxygen Delivery Method Room Air BMI result Body Mass Index 28.0 Labs 04/28/22 17:59 04/28/22 17:59 Labs: Laboratory Results - last 48 hr 05/05/22 12:15 COVID-19 ([facility]) Positive A COVID-19 Clin Com See Note Medications Medications Current Medications Acetaminophen (Acetaminophen 325 Mg Tablet) 650 mg PO Q6H PRN PRN Reason: Headache/Pain Mild Scale (1-3) Last Admin: 05/06/22 23:43 Dose: 650 mg Al Hydroxide/Mg Hydroxide (Magnesium Hydrox/Alum Hydrox 30 Ml Oral.Susp) 30 ml PO Q6H PRN PRN Reason: Heartburn/Nausea Amlodipine Besylate (Amlodipine Besylate 2.5 Mg Tablet) 2.5 mg PO DAILY [facility]; Protocol Last Admin: 05/07/22 08:44 Dose: 2.5 mg Apixaban (Apixaban 5 Mg Tablet) 5 mg PO BID [facility] Last Admin: 05/07/22 08:43 Dose: 5 mg Aripiprazole (Aripiprazole 2 Mg Tablet) 2 mg PO DAILY [facility] Last Admin: 05/07/22 08:44 Dose: 2 mg Artificial Tears (Artificial Tears 15 Ml Drops) 1 drop EYE-BOTH Q1H PRN PRN Reason: dry eyes, irritation Atorvastatin Calcium (Atorvastatin Calcium 10 Mg Tablet) 10 mg PO BEDTIME [facility] Last Admin: 05/06/22 20:41 Dose: 10 mg Clonidine HCl (Clonidine Hcl 0.1 Mg Tablet) 0.1 mg PO BID [facility]; Protocol Last Admin: 05/07/22 08:44 Dose: 0.1 mg Diphenhydramine HCl (Diphenhydramine Hcl 25 Mg Capsule) 25 mg PO Q6H PRN PRN Reason: Congestion Docusate Sodium (Docusate Sodium 100 Mg Capsule) 100 mg PO BID [facility] Last Admin: 05/07/22 08:45 Dose: 100 mg Duloxetine HCl (Duloxetine Hcl 30 Mg Capsule.Dr) 30 mg PO BID [facility] Last Admin: 05/07/22 08:42 Dose: 30 mg Famotidine (Famotidine 20 Mg Tablet) 20 mg PO BEDTIME [facility] Last Admin: 05/06/22 20:41 Dose: 20 mg Guaifenesin (Guaifenesin La 600 Mg Tab.Er.12h) 600 mg PO BID [facility] Last Admin: 05/07/22 08:43 Dose: 600 mg Hydroxyzine HCl (Hydroxyzine Hcl 25 Mg Tablet) 25 mg PO Q6H PRN PRN Reason: Anxiety Last Admin: 05/06/22 23:35 Dose: 25 mg Lidocaine HCl (Lidocaine 4 % Cream Kit) 1 appl TOPICAL DAILY PRN; Protocol PRN Reason: SI joint pain Lorazepam (Lorazepam 0.5 Mg Tablet) 0.5 mg PO TID [facility] Last Admin: 05/07/22 08:43 Dose: 0.5 mg Magnesium Hydroxide (Milk Of Magnesia 30 Ml Oral.Susp) 30 ml PO DAILY PRN PRN Reason: Constipation Last Admin: 05/06/22 12:18 Dose: 30 ml Melatonin (Melatonin 3 Mg Tablet) 9 mg PO BEDTIME PRN PRN Reason: sleep Last Admin: 05/06/22 23:36 Dose: 9 mg Nystatin (Nystatin Powder 15 Gm Bottle) 1 appl TOPICAL BID PRN; Protocol PRN Reason: rash Last Admin: 05/05/22 10:58 Dose: 1 appl Omeprazole (Omeprazole 20 Mg Capsule.Dr) 20 mg PO DAILY [facility] Last Admin: 05/07/22 08:43 Dose: 20 mg Oxycodone HCl (Oxycodone Hcl Immed Release 5 Mg Tablet) 5 mg PO TID [facility] Last Admin: 05/07/22 08:42 Dose: 5 mg Polyethylene Glycol (Polyethylene Glycol 3350 17 Gm Powd.Pack) 17 gm PO DAILY [facility] Last Admin: 05/07/22 08:45 Dose: 17 gm Senna (Senna [place] Extract Oral Syrup 15 Ml Syrup) 7.5 ml PO BEDTIME [facility] Last Admin: 05/06/22 18:31 Dose: 7.5 ml Trazodone HCl (Trazodone Hcl 50 Mg Tablet) 50 mg PO BEDTIME MRX1 PRN PRN Reason: Insomnia Last Admin: 05/07/22 02:21 Dose: 50 mg Allergies Allergies Allergy/AdvReac Type Severity Reaction Status Date / Time amoxicillin Allergy Unknown Verified 01/19/21 17:49 NSAIDS (Non-Steroidal Allergy Unknown Verified 01/19/21 17:49 Anti-Inflamma Penicillins Allergy Unknown Verified 01/19/21 17:49 Sulfa (Sulfonamide Allergy Unknown Verified 01/19/21 17:49 Antibiotics) tetracycline Allergy Unknown Verified 01/19/21 17:49 Tetracyclines Allergy Unknown Verified 01/19/21 17:49 Assessment & Plan Assessment & Plan (1) Major depressive disorder: Status: Acute Code(s): F32.9 - Major depressive disorder, single episode, unspecified (2) Panic disorder with agoraphobia: Status: Acute Code(s): F40.01 - Agoraphobia with panic disorder (3) Chronic right SI joint pain: Status: Acute Code(s): M53.3 - Sacrococcygeal disorders, not elsewhere classified; G89.29 - Other photoresist contact printer monserrat pain (4) Herniated cervical disc: Status: Acute Code(s): M50.20 - Other cervical disc displacement, unspecified cervical region (5) GERD (gastroesophageal reflux disease): Status: Acute Code(s): K21.9 - Gastro-esophageal reflux disease without esophagitis Plan Patient's 67-year-old female with anxiety panic attacks and depression in context of multiple medical concerns: a PMH significant for hx of AFib on Eliquis HTN, HLD, GERD, depression, anxiety, panic disorder with agoraphobia, chronic hyponatremia, and IBS Plan on admission: collateral contact with out patient provider consider increase effexor vs altrnative antidepressant/anxiolytic ekg pending lidocaine patch changes to lidocain gel due to adhesive allergy discharge planning Per Hospitalist : Pain mgt with oxycodone 5 mg TID prn Acetaminophen, lidocaine patch for pain management Follow-up outpatient with PCP Paroxysmal AFib Continue Eliquis HTN Continue amlodipine HLD Continue atorvastatin Chronic constipation Continue laxatives GERD Continue pantoprazole Plan 05/05- add mucinex, benadryl now that she is covid positive. No signs of respiratory distress. 05/06 continue tx. continue monitor respiratory status. 05/07 continue tx. increase senna per request. Increase frequency of eye drop for eye dryness. Can have artificial tears in her room. Reason for contiued inpatient stay Substantial Risk for: harm to self Time Spent With Patient Time: Total time managing care of this patient today ____ minutes.
[2022-05-07] MEDS: hydrOXYzine HCL 25 MG TABLET PO ×3 (10:57→23:42)
[2022-05-07] MEDS: Acetaminophen 325 MG TABLET 650 MG PO ×3 (12:09→23:41)
[2022-05-07] MEDS: diphenhydrAMINE HCL 25 MG CAPSULE PO (14:32)
[2022-05-07] MEDS: Famotidine 20 MG TABLET PO (20:48)
[2022-05-07] MEDS: Atorvastatin Calcium 10 MG TABLET PO (20:49)
[2022-05-07 21:34] VITALS: BP 128/66; PULSE 64; RESP 18; TEMP 35.9; O2SAT 97
[2022-05-07] MEDS: Melatonin 3 MG TABLET 9 MG PO (23:31)
[2022-05-08] MEDS: diphenhydrAMINE HCL 25 MG CAPSULE PO (02:35)
[2022-05-08] MEDS: traZODone HCL 50 MG TABLET PO (03:00)
[2022-05-08] MEDS: hydrOXYzine HCL 25 MG TABLET PO ×3 (06:09→18:30)
[2022-05-08] MEDS: Acetaminophen 325 MG TABLET 650 MG PO ×3 (06:09→18:30)
[2022-05-08 08:20] VITALS: BP 146/66; PULSE 61; RESP 18; TEMP 36.3; O2SAT 98
[2022-05-08] MEDS: ARIPiprazole 2 MG TABLET PO (08:23)
[2022-05-08] MEDS: Apixaban 5 MG TABLET PO ×2 (08:23→20:37)
[2022-05-08] MEDS: cloNIDine HCL 0.1 MG TABLET PO ×2 (08:23→20:38)
[2022-05-08] MEDS: DULoxetine HCl 30 MG CAPSULE.DR PO ×2 (08:24→20:37)
[2022-05-08] MEDS: oxyCODONE HCl Immed Release 5 MG TABLET PO ×3 (08:24→20:37)
[2022-05-08] MEDS: guaiFENesin LA 600 MG TAB.ER.12H PO ×2 (08:25→20:39)
[2022-05-08] MEDS: Omeprazole 20 MG CAPSULE.DR PO (08:25)
[2022-05-08] MEDS: LORazepam 0.5 MG TABLET PO ×3 (08:25→20:37)
[2022-05-08] MEDS: Docusate Sodium 100 MG CAPSULE PO ×2 (08:26→20:37)
[2022-05-08] MEDS: polyethylene glycoL 3350 17 GM POWD.PACK PO (08:26)
[2022-05-08] MEDS: amLODIPine Besylate 2.5 MG TABLET PO (08:26)
--- NOTE | 2022-05-08 10:04 | P.PNPSI_ITS ---
Subjective Subjective Date of Service: 05/08/22 Reason For Visit: Depression Subjective Notes: Conditional Voluntary Interim History: The nursing staff reported the patient still symptomatic with COVID-19 symptoms. She had been compliant with treatment. 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 On interview the patient denies mood lability or suicidal ideation she is able to contract for safety. She complaints of been tight and with nasal constipation and requested Z-Pack, I explained that since she has COVID, antibiotics will not work on that. Mental Status Exam Mental Status Exam Patient Appearance: Well Grooomed and Appropriate Patient Orientation: Person and Situation Level of Consciousness: Awake and Appropriate Patient Behavior: Guarded and Passive Mood Description: Withdrawn Affect Description: Constricted Patient Cognition Impaired: Yes Ability to Follow Directions: Good Speech Pattern: Clear Hallucinations: None Delusions: Not Present Thought Process: Distracted and Linear Thought Content: positive for [place] and positive for Circumstantial Judgement: Fair Diagnostics Vital Signs (24Hr): Vital Signs - 24 hr 05/07/22 21:34 Temperature 96.6 F L Pulse Rate 64 Respiratory Rate 18 Blood Pressure 128/66 Pulse Oximetry 97 Oxygen Delivery Method Room Air BMI result Body Mass Index 28.0 Labs 04/28/22 17:59 04/28/22 17:59 Medications Medications Current Medications Acetaminophen (Acetaminophen 325 Mg Tablet) 650 mg PO Q6H PRN PRN Reason: Headache/Pain Mild Scale (1-3) Last Admin: 05/08/22 06:09 Dose: 650 mg Al Hydroxide/Mg Hydroxide (Magnesium Hydrox/Alum Hydrox 30 Ml Oral.Susp) 30 ml PO Q6H PRN PRN Reason: Heartburn/Nausea Amlodipine Besylate (Amlodipine Besylate 2.5 Mg Tablet) 2.5 mg PO DAILY [facility]; Protocol Last Admin: 05/08/22 08:26 Dose: 2.5 mg Apixaban (Apixaban 5 Mg Tablet) 5 mg PO BID [facility] Last Admin: 05/08/22 08:23 Dose: 5 mg Aripiprazole (Aripiprazole 2 Mg Tablet) 2 mg PO DAILY [facility] Last Admin: 05/08/22 08:23 Dose: 2 mg Artificial Tears (Artificial Tears 15 Ml Drops) 1 drop EYE-BOTH Q1H PRN PRN Reason: dry eyes, irritation Atorvastatin Calcium (Atorvastatin Calcium 10 Mg Tablet) 10 mg PO BEDTIME [facility] Last Admin: 05/07/22 20:49 Dose: 10 mg Clonidine HCl (Clonidine Hcl 0.1 Mg Tablet) 0.1 mg PO BID [facility]; Protocol Last Admin: 05/08/22 08:23 Dose: 0.1 mg Diphenhydramine HCl (Diphenhydramine Hcl 25 Mg Capsule) 25 mg PO Q6H PRN PRN Reason: Congestion Last Admin: 05/08/22 02:35 Dose: 25 mg Docusate Sodium (Docusate Sodium 100 Mg Capsule) 100 mg PO BID [facility] Last Admin: 05/08/22 08:26 Dose: 100 mg Duloxetine HCl (Duloxetine Hcl 30 Mg Capsule.) 30 mg PO BID [facility] Last Admin: 05/08/22 08:24 Dose: 30 mg Famotidine (Famotidine 20 Mg Tablet) 20 mg PO BEDTIME [facility] Last Admin: 05/07/22 20:48 Dose: 20 mg Guaifenesin (Guaifenesin La 600 Mg Tab.Er.12h) 600 mg PO BID [facility] Last Admin: 05/08/22 08:25 Dose: 600 mg Hydroxyzine HCl (Hydroxyzine Hcl 25 Mg Tablet) 25 mg PO Q6H PRN PRN Reason: Anxiety Last Admin: 05/08/22 06:09 Dose: 25 mg Lidocaine HCl (Lidocaine 4 % Cream Kit) 1 appl TOPICAL DAILY PRN; Protocol PRN Reason: SI joint pain Lorazepam (Lorazepam 0.5 Mg Tablet) 0.5 mg PO TID [facility] Last Admin: 05/08/22 08:25 Dose: 0.5 mg Magnesium Hydroxide (Milk Of Magnesia 30 Ml Oral.Susp) 30 ml PO DAILY PRN PRN Reason: Constipation Last Admin: 05/06/22 12:18 Dose: 30 ml Melatonin (Melatonin 3 Mg Tablet) 9 mg PO BEDTIME PRN PRN Reason: sleep Last Admin: 05/07/22 23:31 Dose: 9 mg Nystatin (Nystatin Powder 15 Gm Bottle) 1 appl TOPICAL BID PRN; Protocol PRN Reason: rash Last Admin: 05/05/22 10:58 Dose: 1 appl Omeprazole (Omeprazole 20 Mg Capsule.) 20 mg PO DAILY [facility] Last Admin: 05/08/22 08:25 Dose: 20 mg Oxycodone HCl (Oxycodone Hcl Immed Release 5 Mg Tablet) 5 mg PO TID [facility] Last Admin: 05/08/22 08:24 Dose: 5 mg Polyethylene Glycol (Polyethylene Glycol 3350 17 Gm Powd.Pack) 17 gm PO DAILY [facility] Last Admin: 05/08/22 08:26 Dose: 17 gm Senna (Senna [place] Extract Oral Syrup 15 Ml Syrup) 15 ml PO BEDTIME [facility] Last Admin: 05/07/22 22:33 Dose: 15 ml Trazodone HCl (Trazodone Hcl 50 Mg Tablet) 50 mg PO BEDTIME MRX1 PRN PRN Reason: Insomnia Last Admin: 05/08/22 03:00 Dose: 50 mg Allergies Allergies Allergy/AdvReac Type Severity Reaction Status Date / Time amoxicillin Allergy Unknown Verified 01/19/21 17:49 NSAIDS (Non-Steroidal Allergy Unknown Verified 01/19/21 17:49 Anti-Inflamma Penicillins Allergy Unknown Verified 01/19/21 17:49 Sulfa (Sulfonamide Allergy Unknown Verified 01/19/21 17:49 Antibiotics) tetracycline Allergy Unknown Verified 01/19/21 17:49 Tetracyclines Allergy Unknown Verified 01/19/21 17:49 Assessment & Plan Assessment & Plan (1) Major depressive disorder: Status: Acute Code(s): F32.9 - Major depressive disorder, single episode, unspecified (2) Panic disorder with agoraphobia: Status: Acute Code(s): F40.01 - Agoraphobia with panic disorder (3) Chronic right SI joint pain: Status: Acute Code(s): M53.3 - Sacrococcygeal disorders, not elsewhere classified; G89.29 - Other chronic pain (4) Herniated cervical disc: Status: Acute Code(s): M50.20 - Other cervical disc displacement, unspecified cervical region (5) GERD (gastroesophageal reflux disease): Status: Acute Code(s): K21.9 - Gastro-esophageal reflux disease without esophagitis Plan Patient's 67-year-old female with anxiety panic attacks and depression in context of multiple medical concerns: a PMH significant for hx of AFib on Eliquis HTN, HLD, GERD, depression, anxiety, panic disorder with agoraphobia, chronic hyponatremia, and IBS Plan on admission: collateral contact with out patient provider consider increase effexor vs altrnative antidepressant/anxiolytic ekg pending lidocaine patch changes to lidocain gel due to adhesive allergy discharge planning Per Hospitalist : Pain mgt with oxycodone 5 mg TID prn Acetaminophen, lidocaine patch for pain management Follow-up outpatient with PCP Paroxysmal AFib Continue Eliquis HTN Continue amlodipine HLD Continue atorvastatin Chronic constipation Continue laxatives GERD Continue pantoprazole Plan 1. Continue same treatment. 2. Continue with COVID 19 precautions. She refused a consult with Hospitalist since she doesn't want more medications. VS stable, no desaturation. 3. Start discharge planning for the end of the week. Reason for contiued inpatient stay Substantial Risk for: inability to function, rapid decompensation and med/psych decompensation Time Spent With Patient Time: Total time managing care of this patient today __20__ minutes.
[2022-05-08 18:28] VITALS: BP 144/67; PULSE 61; RESP 16; TEMP 36.2; O2SAT 97
[2022-05-08] MEDS: Famotidine 20 MG TABLET PO (20:37)
[2022-05-08] MEDS: Atorvastatin Calcium 10 MG TABLET PO (20:38)
[2022-05-08] MEDS: Melatonin 3 MG TABLET 9 MG PO (21:59)
[2022-05-09] MEDS: Acetaminophen 325 MG TABLET 650 MG PO ×4 (00:23→18:00)
[2022-05-09] MEDS: hydrOXYzine HCL 25 MG TABLET PO ×4 (00:23→18:00)
[2022-05-09] MEDS: traZODone HCL 50 MG TABLET PO (01:30)
[2022-05-09 06:00] VITALS: BP 146/65; PULSE 82; RESP 16; TEMP 35.8; O2SAT 98
[2022-05-09] MEDS: guaiFENesin LA 600 MG TAB.ER.12H PO ×2 (08:53→21:36)
[2022-05-09] MEDS: LORazepam 0.5 MG TABLET PO ×3 (08:53→21:35)
[2022-05-09] MEDS: DULoxetine HCl 30 MG CAPSULE.DR PO ×2 (08:53→21:35)
[2022-05-09] MEDS: amLODIPine Besylate 2.5 MG TABLET PO (08:53)
[2022-05-09] MEDS: Omeprazole 20 MG CAPSULE.DR PO (08:54)
[2022-05-09] MEDS: oxyCODONE HCl Immed Release 5 MG TABLET PO ×3 (08:54→21:36)
[2022-05-09] MEDS: Apixaban 5 MG TABLET PO ×2 (08:54→21:35)
[2022-05-09] MEDS: ARIPiprazole 2 MG TABLET PO (08:54)
[2022-05-09] MEDS: cloNIDine HCL 0.1 MG TABLET PO ×2 (08:54→21:37)
[2022-05-09] MEDS: Docusate Sodium 100 MG CAPSULE PO ×2 (08:54→21:34)
[2022-05-09] MEDS: polyethylene glycoL 3350 17 GM POWD.PACK PO (08:59)
[2022-05-09 09:01] LABS: MANUAL DIFF FLAG NO
[2022-05-09 09:06] LABS: Basophils Percent Auto 0.5 % (0-2); Eosinophils Absolute Auto 0.2 X10*3/uL (0.0-0.4); Hematocrit 36.2 % (37.0-47.0); Hemoglobin 12.2 g/dl (12.0-16.0); Imm Gran Abs Auto 0.01 X10*3/uL (0.00-0.03); Imm Gran Pct Auto 0.3 % (0.0-0.4); Lymphocytes Absolute Auto 1.5 X10*3/uL (1.2-4.9); Lymphocytes Percent Auto 37.9 % (20-40); Mean Corpuscular HGB Conc 33.7 g/dl (31.0-35.0); Mean Corpuscular Hemoglobin 33.2 pg (27.0-33.0); Mean Corpuscular Volume 98.4 fL (80.0-98.0); Mean Platelet Volume 8.4 fL (9.4-12.3); Monocytes Absolute Auto 0.3 X10*3/uL (0.1-1.2); Monocytes Percent Auto 8.1 % (2-11); Neutrophils Percent Auto 49.2 % (45-73); Platelet Count 222 X10*3/uL (160-400); Red Blood Count 3.68 X10*6/uL (4.20-5.50); Red Cell Distribution Width 13.1 % (11.0-16.0)
[2022-05-09 09:24] LABS: Estimated Average Glucose 94 mg/dL; Hemoglobin A1c % 4.9 %
[2022-05-09 10:02] LABS: Alanine Aminotransferase 31 U/L (0-31); Albumin Level 3.4 g/dL (3.5-5.0); Alkaline Phosphatase 137 U/L (39-117); Anion Gap 12 (12-20); Aspartate Amino Transferase 20 U/L (5-31); Bilirubin Direct < 0.2 mg/dL (0.0-0.5); Bilirubin Total 0.2 mg/dL (0.0-1.0); Blood Urea Nitrogen 6 mg/dL (9-16); Calcium 8.3 mg/dL (8.4-10.2); Carbon Dioxide 24 mmol/L (22-29); Chloride 97 mmol/L (96-108); Creatinine Clr Calc Pharmacy 87.3; Estimated Glomerular Filt Rate > 60; Glucose Random 88 mg/dL (60-115); Potassium 4.4 mmol/L (3.3-5.1); Sodium 129 mmol/L (135-145); Total Protein 5.3 g/dL (6.5-8.0)
--- NOTE | 2022-05-09 12:01 | HO.PSYCHPN ---
Subjective Subjective Date of Service: 05/09/22 Reason For Visit: Depression Subjective Notes: Conditional Voluntary Interim History: The nursing staff reported the patient had been compliant with treatment, she slept well and she was pleasant and cooperative. The occupational therapist reported that she looks more alert and awake. Today in the morning she complained of some muscle pain, we had regular blood work today since we are planning to discharge her tomorrow. We are adding on CPK because she is complaining of muscle aches. The blood work came back normal. She advocated for discharge on Saturday. Mental Status Exam Mental Status Exam Patient Appearance: Well Grooomed and Appropriate Patient Orientation: Person and Situation Level of Consciousness: Awake and Appropriate Patient Behavior: Guarded and Passive Mood Description: Calm Affect Description: Constricted Patient Cognition Impaired: Yes Ability to Follow Directions: Good Speech Pattern: Clear Hallucinations: None Delusions: Not Present Thought Process: Linear Thought Content: positive for [place] Judgement: Fair Diagnostics Vital Signs (24Hr): Vital Signs - 24 hr 05/08/22 18:28 05/09/22 06:00 Temperature 97.1 F 96.4 F L Pulse Rate 61 82 Respiratory Rate 16 16 Blood Pressure 144/67 H 146/65 H Pulse Oximetry 97 98 Oxygen Delivery Method Room Air Room Air BMI result Body Mass Index 28.0 Labs 05/09/22 08:45 05/09/22 08:45 Labs: Laboratory Results - last 48 hr 05/09/22 05/09/22 05/09/22 08:45 08:45 08:45 WBC 4.0 L RBC 3.68 L Hgb 12.2 Hct 36.2 L MCV 98.4 H MCH 33.2 H MCHC 33.7 RDW 13.1 Plt Count 222 MPV 8.4 L Immature Gran % (Auto) 0.3 Neut % (Auto) 49.2 Lymph % (Auto) 37.9 [place] % (Auto) 8.1 Eos % (Auto) 4.0 Baso % (Auto) 0.5 Lymph # (Auto) 1.5 [place] # (Auto) 0.3 Eos # (Auto) 0.2 Baso # (Auto) 0.0 Abs Immat Gran (auto) 0.01 Absolute Neuts (auto) 2.0 Absolute Nucleated RBC 0.000 Nucleated RBC % (auto) 0.0 Sodium 129 L Potassium 4.4 Chloride 97 Carbon Dioxide 24 Anion Gap 12 BUN 6 L Creatinine 0.59 Estim Creat Clear Calc 87.3 Estimated GFR > 60 Random Glucose 88 Estimat Average Glucose 94 Hemoglobin A1c % 4.9 Calcium 8.3 L D Total Bilirubin 0.2 Direct Bilirubin < 0.2 AST 20 ALT 31 Alkaline Phosphatase 137 H Total Protein 5.3 L Albumin 3.4 L Medications Medications Current Medications Acetaminophen (Acetaminophen 325 Mg Tablet) 650 mg PO Q6H PRN PRN Reason: Headache/Pain Mild Scale (1-3) Last Admin: 05/09/22 11:45 Dose: 650 mg Al Hydroxide/Mg Hydroxide (Magnesium Hydrox/Alum Hydrox 30 Ml Oral.Susp) 30 ml PO Q6H PRN PRN Reason: Heartburn/Nausea Amlodipine Besylate (Amlodipine Besylate 2.5 Mg Tablet) 2.5 mg PO DAILY [facility]; Protocol Last Admin: 05/09/22 08:53 Dose: 2.5 mg Apixaban (Apixaban 5 Mg Tablet) 5 mg PO BID [facility] Last Admin: 05/09/22 08:54 Dose: 5 mg Aripiprazole (Aripiprazole 2 Mg Tablet) 2 mg PO DAILY [facility] Last Admin: 05/09/22 08:54 Dose: 2 mg Artificial Tears (Artificial Tears 15 Ml Drops) 1 drop EYE-BOTH Q1H PRN PRN Reason: dry eyes, irritation Atorvastatin Calcium (Atorvastatin Calcium 10 Mg Tablet) 10 mg PO BEDTIME [facility] Last Admin: 05/08/22 20:38 Dose: 10 mg Clonidine HCl (Clonidine Hcl 0.1 Mg Tablet) 0.1 mg PO BID [facility]; Protocol Last Admin: 05/09/22 08:54 Dose: 0.1 mg Diphenhydramine HCl (Diphenhydramine Hcl 25 Mg Capsule) 25 mg PO Q6H PRN PRN Reason: Congestion Last Admin: 05/08/22 02:35 Dose: 25 mg Docusate Sodium (Docusate Sodium 100 Mg Capsule) 100 mg PO BID [facility] Last Admin: 05/09/22 08:54 Dose: 100 mg Duloxetine HCl (Duloxetine Hcl 30 Mg Capsule.Dr) 30 mg PO BID [facility] Last Admin: 05/09/22 08:53 Dose: 30 mg Famotidine (Famotidine 20 Mg Tablet) 20 mg PO BEDTIME [facility] Last Admin: 05/08/22 20:37 Dose: 20 mg Guaifenesin (Guaifenesin La 600 Mg Tab.Er.12h) 600 mg PO BID [facility] Last Admin: 05/09/22 08:53 Dose: 600 mg Hydroxyzine HCl (Hydroxyzine Hcl 25 Mg Tablet) 25 mg PO Q6H PRN PRN Reason: Anxiety Last Admin: 05/09/22 11:45 Dose: 25 mg Lidocaine HCl (Lidocaine 4 % Cream Kit) 1 appl TOPICAL DAILY PRN; Protocol PRN Reason: SI joint pain Lorazepam (Lorazepam 0.5 Mg Tablet) 0.5 mg PO TID [facility] Last Admin: 05/09/22 08:53 Dose: 0.5 mg Magnesium Hydroxide (Milk Of Magnesia 30 Ml Oral.Susp) 30 ml PO DAILY PRN PRN Reason: Constipation Last Admin: 05/06/22 12:18 Dose: 30 ml Melatonin (Melatonin 3 Mg Tablet) 9 mg PO BEDTIME PRN PRN Reason: sleep Last Admin: 05/08/22 21:59 Dose: 9 mg Nystatin (Nystatin Powder 15 Gm Bottle) 1 appl TOPICAL BID PRN; Protocol PRN Reason: rash Last Admin: 05/05/22 10:58 Dose: 1 appl Omeprazole (Omeprazole 20 Mg Capsule.Dr) 20 mg PO DAILY [facility] Last Admin: 05/09/22 08:54 Dose: 20 mg Oxycodone HCl (Oxycodone Hcl Immed Release 5 Mg Tablet) 5 mg PO TID [facility] Last Admin: 05/09/22 08:54 Dose: 5 mg Polyethylene Glycol (Polyethylene Glycol 3350 17 Gm Powd.Pack) 17 gm PO DAILY [facility] Last Admin: 05/09/22 08:59 Dose: 17 gm Senna (Senna [place] Extract Oral Syrup 15 Ml Syrup) 15 ml PO DAILY@1800 [facility] Last Admin: 05/08/22 18:30 Dose: 15 ml Trazodone HCl (Trazodone Hcl 50 Mg Tablet) 50 mg PO BEDTIME MRX1 PRN PRN Reason: Insomnia Last Admin: 05/09/22 01:30 Dose: 50 mg Allergies Allergies Allergy/AdvReac Type Severity Reaction Status Date / Time amoxicillin Allergy Unknown Verified 01/19/21 17:49 NSAIDS (Non-Steroidal Allergy Unknown Verified 01/19/21 17:49 Anti-Inflamma Penicillins Allergy Unknown Verified 01/19/21 17:49 Sulfa (Sulfonamide Allergy Unknown Verified 01/19/21 17:49 Antibiotics) tetracycline Allergy Unknown Verified 01/19/21 17:49 Tetracyclines Allergy Unknown Verified 01/19/21 17:49 Assessment & Plan Assessment & Plan (1) Major depressive disorder: Status: Acute Code(s): F32.9 - Major depressive disorder, single episode, unspecified (2) Panic disorder with agoraphobia: Status: Acute Code(s): F40.01 - Agoraphobia with panic disorder (3) Chronic right SI joint pain: Status: Acute Code(s): M53.3 - Sacrococcygeal disorders, not elsewhere classified; G89.29 - Other chronic pain (4) Herniated cervical disc: Status: Acute Code(s): M50.20 - Other cervical disc displacement, unspecified cervical region (5) GERD (gastroesophageal reflux disease): Status: Acute Code(s): K21.9 - Gastro-esophageal reflux disease without esophagitis Plan Patient's 67-year-old female with anxiety panic attacks and depression in context of multiple medical concerns: a PMH significant for hx of AFib on Eliquis HTN, HLD, GERD, depression, anxiety, panic disorder with agoraphobia, chronic hyponatremia, and IBS Plan on admission: collateral contact with out patient provider consider increase effexor vs altrnative antidepressant/anxiolytic ekg pending lidocaine patch changes to lidocain gel due to adhesive allergy discharge planning Per Hospitalist : Pain mgt with oxycodone 5 mg TID prn Acetaminophen, lidocaine patch for pain management Follow-up outpatient with PCP Paroxysmal AFib Continue Eliquis HTN Continue amlodipine HLD Continue atorvastatin Chronic constipation Continue laxatives GERD Continue pantoprazole Plan 1. Continue same treatment. 2. Continue with COVID 19 precautions. She refused a consult with Hospitalist since she doesn't want more medications. VS stable, no desaturation. 3. Start discharge planning for the end of the week. 4. Blood per came back within normal limits. Reason for contiued inpatient stay Substantial Risk for: inability to function, rapid decompensation and med/psych decompensation Time Spent With Patient Time: Total time managing care of this patient today __20__ minutes.
[2022-05-09] MEDS: Ondansetron ODT 4 MG TAB.RAPDIS TRANSLINGU (17:08)
[2022-05-09 19:20] VITALS: BP 148/66; PULSE 67; RESP 18; TEMP 36.2; O2SAT 99
[2022-05-09] MEDS: Atorvastatin Calcium 10 MG TABLET PO (21:35)
[2022-05-09] MEDS: Famotidine 20 MG TABLET PO (21:37)
[2022-05-09] MEDS: Melatonin 3 MG TABLET 9 MG PO (23:30)
[2022-05-10 06:00] VITALS: BP 137/64; PULSE 65; RESP 18; TEMP 36.2; O2SAT 100
--- NOTE | 2022-05-10 07:36 | HO.PSYCHPN ---
Subjective Subjective Date of Service: 05/10/22 Reason For Visit: Depression Subjective Notes: Conditional Voluntary Interim History: The nursing staff reported the patient had been fully compliant with treatment, she states most of the time in her room reading. On interview, the patient reports that she is anxious since she is going to be discharged tomorrow. I contact her regular provider and inform of the medication changes. Mental Status Exam Mental Status Exam Patient Appearance: Well Grooomed and Appropriate Patient Orientation: Person and Situation Level of Consciousness: Awake and Appropriate Patient Behavior: Passive Mood Description: Depressed Affect Description: Constricted Patient Cognition Impaired: No Ability to Follow Directions: Good Speech Pattern: Clear Hallucinations: None Delusions: Not Present Thought Process: Linear Thought Content: positive for [place] Judgement: Fair Diagnostics Vital Signs (24Hr): Vital Signs - 24 hr 05/09/22 19:20 Temperature 97.2 F Pulse Rate 67 Respiratory Rate 18 Blood Pressure 148/66 H Pulse Oximetry 99 Oxygen Delivery Method Room Air BMI result Body Mass Index 28.0 Labs 05/09/22 08:45 05/09/22 08:45 Labs: Laboratory Results - last 48 hr 05/09/22 05/09/22 05/09/22 08:45 08:45 08:45 WBC 4.0 L RBC 3.68 L Hgb 12.2 Hct 36.2 L MCV 98.4 H MCH 33.2 H MCHC 33.7 RDW 13.1 Plt Count 222 MPV 8.4 L Immature Gran % (Auto) 0.3 Neut % (Auto) 49.2 Lymph % (Auto) 37.9 [place] % (Auto) 8.1 Eos % (Auto) 4.0 Baso % (Auto) 0.5 Lymph # (Auto) 1.5 [place] # (Auto) 0.3 Eos # (Auto) 0.2 Baso # (Auto) 0.0 Abs Immat Gran (auto) 0.01 Absolute Neuts (auto) 2.0 Absolute Nucleated RBC 0.000 Nucleated RBC % (auto) 0.0 Sodium 129 L Potassium 4.4 Chloride 97 Carbon Dioxide 24 Anion Gap 12 BUN 6 L Creatinine 0.59 Estim Creat Clear Calc 87.3 Estimated GFR > 60 Random Glucose 88 Estimat Average Glucose 94 Hemoglobin A1c % 4.9 Calcium 8.3 L D Total Bilirubin 0.2 Direct Bilirubin < 0.2 AST 20 ALT 31 Alkaline Phosphatase 137 H Total Creatine Kinase 44 Total Protein 5.3 L Albumin 3.4 L Medications Medications Current Medications Acetaminophen (Acetaminophen 325 Mg Tablet) 650 mg PO Q6H PRN PRN Reason: Headache/Pain Mild Scale (1-3) Last Admin: 05/09/22 18:00 Dose: 650 mg Al Hydroxide/Mg Hydroxide (Magnesium Hydrox/Alum Hydrox 30 Ml Oral.Susp) 30 ml PO Q6H PRN PRN Reason: Heartburn/Nausea Amlodipine Besylate (Amlodipine Besylate 2.5 Mg Tablet) 2.5 mg PO DAILY [facility]; Protocol Last Admin: 05/09/22 08:53 Dose: 2.5 mg Apixaban (Apixaban 5 Mg Tablet) 5 mg PO BID [facility] Last Admin: 05/09/22 21:35 Dose: 5 mg Aripiprazole (Aripiprazole 2 Mg Tablet) 2 mg PO DAILY [facility] Last Admin: 05/09/22 08:54 Dose: 2 mg Artificial Tears (Artificial Tears 15 Ml Drops) 1 drop EYE-BOTH Q1H PRN PRN Reason: dry eyes, irritation Atorvastatin Calcium (Atorvastatin Calcium 10 Mg Tablet) 10 mg PO BEDTIME [facility] Last Admin: 05/09/22 21:35 Dose: 10 mg Clonidine HCl (Clonidine Hcl 0.1 Mg Tablet) 0.1 mg PO BID [facility]; Protocol Last Admin: 05/09/22 21:37 Dose: 0.1 mg Diphenhydramine HCl (Diphenhydramine Hcl 25 Mg Capsule) 25 mg PO Q6H PRN PRN Reason: Congestion Last Admin: 05/08/22 02:35 Dose: 25 mg Docusate Sodium (Docusate Sodium 100 Mg Capsule) 100 mg PO BID [facility] Last Admin: 05/09/22 21:34 Dose: 100 mg Duloxetine HCl (Duloxetine Hcl 30 Mg Capsule.Dr) 30 mg PO BID [facility] Last Admin: 05/09/22 21:35 Dose: 30 mg Famotidine (Famotidine 20 Mg Tablet) 20 mg PO BEDTIME [facility] Last Admin: 05/09/22 21:37 Dose: 20 mg Guaifenesin (Guaifenesin [place] 600 Mg Tab.Er.12h) 600 mg PO BID [facility] Last Admin: 05/09/22 21:36 Dose: 600 mg Hydroxyzine HCl (Hydroxyzine Hcl 25 Mg Tablet) 25 mg PO Q6H PRN PRN Reason: Anxiety Last Admin: 05/09/22 18:00 Dose: 25 mg Lidocaine HCl (Lidocaine 4 % Cream Kit) 1 appl TOPICAL DAILY PRN; Protocol PRN Reason: SI joint pain Lorazepam (Lorazepam 0.5 Mg Tablet) 0.5 mg PO TID [facility] Last Admin: 05/09/22 21:35 Dose: 0.5 mg Magnesium Hydroxide (Milk Of Magnesia 30 Ml Oral.Susp) 30 ml PO DAILY PRN PRN Reason: Constipation Last Admin: 05/06/22 12:18 Dose: 30 ml Melatonin (Melatonin 3 Mg Tablet) 9 mg PO BEDTIME PRN PRN Reason: sleep Last Admin: 05/09/22 23:30 Dose: 9 mg Nystatin (Nystatin Powder 15 Gm Bottle) 1 appl TOPICAL BID PRN; Protocol PRN Reason: rash Last Admin: 05/05/22 10:58 Dose: 1 appl Omeprazole (Omeprazole 20 Mg Capsule.Dr) 20 mg PO DAILY [facility] Last Admin: 05/09/22 08:54 Dose: 20 mg Ondansetron HCl (Ondansetron Odt 4 Mg Tab.Rapdis) 4 mg TRANSLINGU Q6H PRN PRN Reason: Nausea Last Admin: 05/09/22 17:08 Dose: 4 mg Oxycodone HCl (Oxycodone Hcl Immed Release 5 Mg Tablet) 5 mg PO TID [facility] Last Admin: 05/09/22 21:36 Dose: 5 mg Polyethylene Glycol (Polyethylene Glycol 3350 17 Gm Powd.Pack) 17 gm PO DAILY [facility] Last Admin: 05/09/22 08:59 Dose: 17 gm Senna (Senna [place] Extract Oral Syrup 15 Ml Syrup) 15 ml PO DAILY@1800 [facility] Last Admin: 05/09/22 18:08 Dose: Not Given Trazodone HCl (Trazodone Hcl 50 Mg Tablet) 50 mg PO BEDTIME MRX1 PRN PRN Reason: Insomnia Last Admin: 05/09/22 01:30 Dose: 50 mg Allergies Allergies Allergy/AdvReac Type Severity Reaction Status Date / Time amoxicillin Allergy Unknown Verified 01/19/21 17:49 NSAIDS (Non-Steroidal Allergy Unknown Verified 01/19/21 17:49 Anti-Inflamma Penicillins Allergy Unknown Verified 01/19/21 17:49 Sulfa (Sulfonamide Allergy Unknown Verified 01/19/21 17:49 Antibiotics) tetracycline Allergy Unknown Verified 01/19/21 17:49 Tetracyclines Allergy Unknown Verified 01/19/21 17:49 Assessment & Plan Assessment & Plan (1) Major depressive disorder: Status: Acute Code(s): F32.9 - Major depressive disorder, single episode, unspecified (2) Panic disorder with agoraphobia: Status: Acute Code(s): F40.01 - Agoraphobia with panic disorder (3) Chronic right SI joint pain: Status: Acute Code(s): M53.3 - Sacrococcygeal disorders, not elsewhere classified; G89.29 - Other chronic pain (4) Herniated cervical disc: Status: Acute Code(s): M50.20 - Other cervical disc displacement, unspecified cervical region (5) GERD (gastroesophageal reflux disease): Status: Acute Code(s): K21.9 - Gastro-esophageal reflux disease without esophagitis Plan Patient's 67-year-old female with anxiety panic attacks and depression in context of multiple medical concerns: a PMH significant for hx of AFib on Eliquis HTN, HLD, GERD, depression, anxiety, panic disorder with agoraphobia, chronic hyponatremia, and IBS Plan on admission: collateral contact with out patient provider consider increase effexor vs altrnative antidepressant/anxiolytic ekg pending lidocaine patch changes to lidocain gel due to adhesive allergy discharge planning Per Hospitalist : Pain mgt with oxycodone 5 mg TID prn Acetaminophen, lidocaine patch for pain management Follow-up outpatient with PCP Paroxysmal AFib Continue Eliquis HTN Continue amlodipine HLD Continue atorvastatin Chronic constipation Continue laxatives GERD Continue pantoprazole Plan 1. Continue same treatment. 2. Continue with COVID 19 precautions. She refused a consult with Hospitalist since she doesn't want more medications. VS stable, no desaturation. 3. Start discharge planning for the end of the week. 4. Blood per came back within normal limits. Reason for contiued inpatient stay Substantial Risk for: inability to function, rapid decompensation and med/psych decompensation Time Spent With Patient Time: Total time managing care of this patient today _20___ minutes.
[2022-05-10 09:38] LABS: Cholesterol 154 mg/dL; HDL Cholesterol 39 mg/dL; LDL Cholesterol Calculated 95 mg/dl; Triglycerides 103 mg/dL
[2022-05-10] MEDS: amLODIPine Besylate 2.5 MG TABLET PO (09:55)
[2022-05-10] MEDS: cloNIDine HCL 0.1 MG TABLET PO ×2 (09:55→20:41)
[2022-05-10] MEDS: DULoxetine HCl 30 MG CAPSULE.DR PO ×2 (09:55→20:40)
[2022-05-10] MEDS: LORazepam 0.5 MG TABLET PO ×3 (09:55→20:40)
[2022-05-10] MEDS: Docusate Sodium 100 MG CAPSULE PO ×2 (09:55→20:40)
[2022-05-10] MEDS: ARIPiprazole 2 MG TABLET PO (09:55)
[2022-05-10] MEDS: Omeprazole 20 MG CAPSULE.DR PO (09:55)
[2022-05-10] MEDS: guaiFENesin LA 600 MG TAB.ER.12H PO ×2 (09:55→20:39)
[2022-05-10] MEDS: oxyCODONE HCl Immed Release 5 MG TABLET PO ×3 (09:55→20:41)
[2022-05-10] MEDS: polyethylene glycoL 3350 17 GM POWD.PACK PO (09:56)
[2022-05-10] MEDS: Apixaban 5 MG TABLET PO ×2 (09:58→20:40)
[2022-05-10] MEDS: Acetaminophen 325 MG TABLET 650 MG PO ×2 (10:43→17:22)
[2022-05-10] MEDS: hydrOXYzine HCL 25 MG TABLET PO ×2 (11:33→17:22)
[2022-05-10] MEDS: Ondansetron ODT 4 MG TAB.RAPDIS TRANSLINGU (13:22)
[2022-05-10 20:05] VITALS: BP 123/68; PULSE 66; RESP 18; TEMP 36.2; O2SAT 97
[2022-05-10] MEDS: Atorvastatin Calcium 10 MG TABLET PO (20:41)
[2022-05-10] MEDS: Famotidine 20 MG TABLET PO (20:42)
[2022-05-10] MEDS: Melatonin 3 MG TABLET 9 MG PO (23:43)
[2022-05-11] MEDS: Acetaminophen 325 MG TABLET 650 MG PO ×2 (03:13→10:56)
[2022-05-11] MEDS: hydrOXYzine HCL 25 MG TABLET PO ×2 (03:13→10:56)
[2022-05-11] MEDS: DULoxetine HCl 30 MG CAPSULE.DR PO (08:58)
[2022-05-11] MEDS: ARIPiprazole 2 MG TABLET PO (08:58)
[2022-05-11] MEDS: Docusate Sodium 100 MG CAPSULE PO (08:58)
[2022-05-11] MEDS: oxyCODONE HCl Immed Release 5 MG TABLET PO (08:58)
[2022-05-11] MEDS: polyethylene glycoL 3350 17 GM POWD.PACK PO (08:59)
[2022-05-11] MEDS: Omeprazole 20 MG CAPSULE.DR PO (08:59)
[2022-05-11] MEDS: guaiFENesin LA 600 MG TAB.ER.12H PO (08:59)
[2022-05-11] MEDS: LORazepam 0.5 MG TABLET PO (08:59)
[2022-05-11] MEDS: Apixaban 5 MG TABLET PO (08:59)
[2022-05-11] MEDS: amLODIPine Besylate 2.5 MG TABLET PO (08:59)
[2022-05-11] MEDS: cloNIDine HCL 0.1 MG TABLET PO (08:59)
[2022-05-11 09:36] VITALS: BP 185/77; PULSE 70; RESP 18; TEMP 36; O2SAT 100
--- NOTE | 2022-05-11 10:56 | PM.PSYDC ---
DS: Providers Provider Date of Service: 05/11/22 Date of admission: 04/27/22 19:32 Date of discharge: 05/11/22 Primary care physician: OWEN Allred Consults: 04/27/22 20:36 Consult to Hospitalist Routine Consulting Provider: Hospitalist Reason For Exam: admission physical DS: Diagnosis Discharge Diagnosis (1) Major depressive disorder: Status: Acute (2) Panic disorder with agoraphobia: Status: Acute (3) Chronic right SI joint pain: Status: Acute (4) Herniated cervical disc: Status: Acute (5) GERD (gastroesophageal reflux disease): Status: Acute DS: Medications Discharge Medications Home Medications: Home Medications Medication Instructions Recorded Confirmed amlodipine 5 mg tablet 2.5 mg PO DAILY 04/27/22 04/27/22 apixaban 5 mg tablet 5 mg PO BID 04/27/22 04/27/22 melatonin 3 mg tablet 9 mg PO BEDTIME PRN sleep 04/27/22 04/27/22 oxycodone 5 mg tablet 5 mg PO BID PRN pain, moderate 04/27/22 04/27/22 pantoprazole 40 mg tablet,delayed 40 mg PO DAILY 04/27/22 04/27/22 release sennosides 8.6 mg tablet (senna) 8.6 mg PO BEDTIME 04/27/22 04/27/22 venlafaxine 37.5 mg 37.5 mg PO DAILY 04/27/22 04/27/22 capsule,extended release 24 hr Previous Rx's Medication Instructions Recorded atorvastatin 10 mg tablet 10 mg PO DAILY 30 days #30 tabs 01/31/21 docusate sodium 100 mg capsule 100 mg PO BID 30 days #60 caps 01/31/21 lisinopril 40 mg tablet 40 mg PO DAILY 30 days #30 tabs 01/31/21 lorazepam 0.5 mg tablet 0.5 mg PO Q8H PRN Anxiety 30 days 01/31/21 #90 tabs nicotine 14 mg/24 hr daily 1 patch transdermal DAILY 30 days 01/31/21 transdermal patch #30 ea nortriptyline 25 mg capsule 25 mg PO BEDTIME 30 days #30 caps 01/31/21 nystatin 100,000 unit/gram topical 1 appl topical BID 30 days #10 01/31/21 powder grams omeprazole 20 mg capsule,delayed 20 mg PO DAILY@0630 30 days #30 01/31/21 release caps polyvinyl alcohol 1.4 % eye drops 1 drp ophthalmic (eye) Q4H PRN Dry 01/31/21 (Artificial Tears (polyvinyl Eyes 30 days #5 mL alcohol)) trazodone 50 mg tablet 50 mg PO BEDTIME PRN Insomnia 30 01/31/21 days #30 tabs Mental Status Exam Mental Status Exam Patient Appearance: Well Grooomed and Appropriate Patient Orientation: Person, Place, Time and Situation Level of Consciousness: Awake and Appropriate Patient Behavior: Cooperative Mood Description: Calm Affect Description: Constricted Patient Cognition Impaired: No Ability to Follow Directions: Good Speech Pattern: Clear Memory Description: Intact Hallucinations: None Delusions: Not Present Thought Process: Linear Thought Content: positive for Circumstantial Judgement: Fair Data Data Completed and Pending Completed studies during hospitalization [Text1]: 05/05/22 05/09/22 05/09/22 12:15 08:45 08:45 WBC 4.0 L RBC 3.68 L Hgb 12.2 Hct 36.2 L MCV 98.4 H MCH 33.2 H MCHC 33.7 RDW 13.1 Plt Count 222 MPV 8.4 L Immature Gran % (Auto) 0.3 Neut % (Auto) 49.2 Lymph % (Auto) 37.9 [place] % (Auto) 8.1 Eos % (Auto) 4.0 Baso % (Auto) 0.5 Lymph # (Auto) 1.5 [place] # (Auto) 0.3 Eos # (Auto) 0.2 Baso # (Auto) 0.0 Abs Immat Gran (auto) 0.01 Absolute Neuts (auto) 2.0 Absolute Nucleated RBC 0.000 Nucleated RBC % (auto) 0.0 Sodium 129 L Potassium 4.4 Chloride 97 Carbon Dioxide 24 Anion Gap 12 BUN 6 L Creatinine 0.59 Estim Creat Clear Calc 87.3 Estimated GFR > 60 Random Glucose 88 Estimat Average Glucose Hemoglobin A1c % Calcium 8.3 L D Total Bilirubin 0.2 Direct Bilirubin < 0.2 AST 20 ALT 31 Alkaline Phosphatase 137 H Total Creatine Kinase 44 Total Protein 5.3 L Albumin 3.4 L Triglycerides Cholesterol LDL Cholesterol, Calc HDL Cholesterol COVID-19 ([facility]) Positive A COVID-19 Clin Com See Note 05/09/22 05/10/22 08:45 08:52 WBC RBC Hgb Hct MCV MCH MCHC RDW Plt Count MPV Immature Gran % (Auto) Neut % (Auto) Lymph % (Auto) [place] % (Auto) Eos % (Auto) Baso % (Auto) Lymph # (Auto) [place] # (Auto) Eos # (Auto) Baso # (Auto) Abs Immat Gran (auto) Absolute Neuts (auto) Absolute Nucleated RBC Nucleated RBC % (auto) Sodium Potassium Chloride Carbon Dioxide Anion Gap BUN Creatinine Estim Creat Clear Calc Estimated GFR Random Glucose Estimat Average Glucose 94 Hemoglobin A1c % 4.9 Calcium Total Bilirubin Direct Bilirubin AST ALT Alkaline Phosphatase Total Creatine Kinase Total Protein Albumin Triglycerides 103 Cholesterol 154 LDL Cholesterol, Calc 95 HDL Cholesterol 39 COVID-19 ([facility]) COVID-19 Clin Com DS: Summary Hospital Course Hospital Course: The patient was initially admitted for exacerbation of depression and anxiety in the context of recent medication changes. Please see the HPI of the admission note for further details. On admission we contact her outpatient psychiatrist and we discussed treatment options. We cross taper her Effexor to Cymbalta titrated up to 30 mg p.o. b.i.d. target anxiety and depression and we started Abilify titrated up to 2 mg daily as adjunctive therapy for depression. The patient's anxiety improved with Ativan t.i.d. and I had to add a low dose of clonidine with for improvement. The patient has several medical problems and different somatic complaints. She was worried about the continuation of opioids as an outpatient since she does not have a regular prescriber on pain management. We discussed at length risks, benefits, side-effects and alternatives regarding the use of opioids and other addictive medications and she is fully aware of the risk and benefits. While she was in the unit, unfortunately she contracted COVID 19, she needed to be on COVID-19 precautions and she improved without any complications. The patient was able to participate minimally in groups, she was future oriented and there was less anxiety. Since there were no safety concerns discharge planning was discussed. Her cognition is at baseline no deterioration since the last admission. Time spent discussing smoking cessation with patient: 3 to 10 minutes Status at Discharge Cognitive/behavioral status at discharge: At baseline Functional status at discharge: independent ambulation Overall status at discharge: patient is back to baseline Time Spent with Patient Time attestation: Total time managing care of this patient today __20__ minutes. Time spent: Less than 30 minutes Discharge Plan Discharge Anticipated Discharge Date/Time: 05/11/22 13:59 Patient Disposition: Home, Self-Care Discharge Diagnosis: Major depressive disorder recurrent episode severe. PTSD Referrals: Aurelia Mckenzie [facility] [Other] - 05/15/22 1:20 pm (Your next appointment with Dr Aurelia Pratt is scheduled for 05/15/22 at 1:20pm in person at the office and the appointment is 1/2 hour. ) Janet Kee [Other] - 1 Week (Calls placed for appointment. Please follow up with your therapist to confirm next appointment. ) Kelsie Danielson PA [Primary Care Provider] - 05/14/22 11:00 am Discharge Medications: New clonidine HCl 0.1 mg Tablet 0.1 mg PO BID 30 Days Qty: 60 0RF Protocol: Hold for SBP< HOLD for SBP < : 90 acetaminophen 325 mg Tablet 650 mg PO Q6H PRN (Reason: Headache/Pain Mild Scale (1-3)) 30 Days Qty: 60 0RF trazodone 50 mg Tablet 50 mg PO BEDTIME MRX1 PRN (Reason: Insomnia) 30 Days Qty: 60 0RF diphenhydramine HCl 25 mg Capsule 25 mg PO Q6H PRN (Reason: Congestion) 30 Days Qty: 60 0RF hydroxyzine HCl 25 mg Tablet 25 mg PO Q6H PRN (Reason: Anxiety) 30 Days Qty: 90 0RF duloxetine 30 mg Capsule,Delayed Release(Dr/Ec) 30 mg PO BID 30 Days Qty: 60 0RF aripiprazole [Abilify] 2 mg Tablet 2 mg PO DAILY 30 Days Qty: 30 0RF lidocaine-transparent dressing [LMX 4 Plus] 4 % Kit 1 appl topical DAILY PRN (Reason: SI joint pain) 30 Days Qty: 30 0RF Protocol: Apply to: Apply to: SI joint famotidine 20 mg Tablet 20 mg PO BEDTIME 30 Days Qty: 30 0RF nystatin 100,000 unit/gram Powder 1 appl topical BID PRN (Reason: rash) 30 Days Qty: 1 0RF Protocol: Apply to: Apply to: under breasts as needed guaifenesin [Mucinex] 600 mg Tablet Extended Release 12hr 600 mg PO BID 30 Days Qty: 60 0RF Continued sennosides [senna] 8.6 mg Tablet 8.6 mg PO BEDTIME 30 Days Qty: 30 0RF atorvastatin 10 mg Tablet 10 mg PO DAILY 30 Days Qty: 30 0RF polyvinyl alcohol [Artificial Tears (polyvin alc)] 1.4 % Drops 1 drp ophthalmic (eye) Q4H PRN (Reason: Dry Eyes) 30 Days Qty: 5 0RF melatonin 3 mg Tablet 9 mg PO BEDTIME PRN (Reason: sleep) 30 Days Qty: 90 0RF lorazepam 0.5 mg Tablet 0.5 mg PO Q8H PRN (Reason: Anxiety) 30 Days Qty: 90 0RF pantoprazole 40 mg Tablet,Delayed Release (Dr/Ec) 40 mg PO DAILY 30 Days Qty: 30 0RF docusate sodium 100 mg Capsule 100 mg PO BID 30 Days Qty: 60 0RF lisinopril 40 mg Tablet 40 mg PO DAILY 30 Days Qty: 30 0RF oxycodone 5 mg Tablet 5 mg PO BID PRN (Reason: pain, moderate) 30 Days Qty: 90 0RF apixaban 5 mg Tablet 5 mg PO BID 30 Days Qty: 60 0RF Changed amlodipine 5 mg tablet 2.5 mg PO DAILY 30 Days Qty: 15 0RF Discontinued trazodone 50 mg Tablet 50 mg PO BEDTIME PRN (Reason: Insomnia) 30 Days Qty: 30 0RF nortriptyline 25 mg Capsule 25 mg PO BEDTIME 30 Days Qty: 30 0RF omeprazole 20 mg Capsule,Delayed Release(Dr/Ec) 20 mg PO DAILY@0630 30 Days Qty: 30 0RF nystatin 100,000 unit/gram Powder 1 appl topical BID 30 Days Qty: 10 0RF Protocol: Apply to: Apply to: Under Breasts nicotine 14 mg/24 hr Patch 24 Hour 1 patch TRANSDERMAL DAILY 30 Days Qty: 30 0RF venlafaxine 37.5 mg Capsule,Extended Release 24hr 37.5 mg PO DAILY Discharge Orders: Discharge Order (Routine); Ordered 05/11/22 Ordered By: Rolan Barrera Diet: Advance to usual diet Activity on Discharge: As tolerated Stand Alone Forms: Patient Portal Discharge page, Community Support Care Plan Goals: Care plan goals achieved in this admission Health Concerns: Continue treatment with outpatient providers Plan of Treatment: Continue medication management with her regular prescriber Assessment: Elderly female admitted for exacerbation of depression and anxiety in the context of med changes. She successfully cross tapered from a Effexor to Cymbalta with for improvement. At this moment no safety concerns ready to be discharged in the community
[2022-05-11] MEDS: Ondansetron ODT 4 MG TAB.RAPDIS TRANSLINGU (13:33)
== END 2022-05-11 13:30 | disposition home or self-care (01) | DRG 881 ==
PROVIDERS: Clinical Nurse Specialist Psychiatric/Mental Health; Social Worker; Admitting Provider Psychiatry & Neurology Psychiatry; PCP Physician Assistant; Visit Provider Psychiatry & Neurology Psychiatry
DX: F32.9 Major depressive disorder, single episode, unspecified (principal); U07.1 COVID-19; F40.01 Agoraphobia with panic disorder; K21.9 Gastro-esophageal reflux disease without esophagitis; G89.29 Other chronic pain; I48.0 Paroxysmal atrial fibrillation; I10 Essential (primary) hypertension; E78.5 Hyperlipidemia, unspecified; K59.09 Other constipation; M50.20 Other cervical disc displacement, unspecified cervical region; M53.3 Sacrococcygeal disorders, not elsewhere classified; Z87.891 Personal history of nicotine dependence; Z88.0 Allergy status to penicillin; Z88.1 Allergy status to other antibiotic agents; Z88.2 Allergy status to sulfonamides; Z88.6 Allergy status to analgesic agent; Z79.01 Long term (current) use of anticoagulants; Z79.899 Other long term (current) drug therapy
CPT/HCPCS: 36415; 80048; 80053; 80061; 80076; 82550; 82607; 82746; 83036; 83735; 85025; 87635; 97161